=== PATIENT | female | born 1990 | race Caucasian/White ===

== ENCOUNTER 2017-09-20 22:09 | Emergency (ER) | payer OTHER, SELFPAY ==
--- OUTSIDE RECORDS SUMMARY | 2017-09-20 22:12 | XMS REPORT | Clinical Summary ---
:1990 Author Organization [facility] Address [address] [place] [address] Phone Care Team Providers Name Role Phone Unavailable Primary Care Provider Unavailable Allergies Active Allergy Reactions Severity Noted Date Comments Latex 09/15/2015 Tramadol 09/15/2015 Current Medications Not on file Active Problems Not on file Social History Tobacco Use Types Packs/Day Years Used Date Current Every Day Smoker Alcohol Use Drinks/Week oz/Week Comments Yes occasionally Sex Assigned at Date Recorded Not on file Last Filed Vital Signs Not on file Plan of Treatment Not on file Results Not on fileafter 09/19/2016
--- OUTSIDE RECORDS SUMMARY | 2017-09-20 22:12 | XMS REPORT ---
:1990 [facility] Address [facility] [place] [address] Care Team Providers Name Role Phone Daniel VALIENTE Primary Care Provider Unavailable Daniel VALIENTE Unavailable Unavailable Problems This patient has no known problems. Allergies, Adverse Reactions, Alerts This patient has no known allergies or adverse reactions. Medications This patient has no known medications. Results Test Description Test Time Test Comments Text Results Atomic Results Result Comments [id number] 2016-11-13 22:58:00 Test Item Value Reference Range Comments Amphetamine (test code=AMPH) Negative Negative For diagnostic purposes only, positive results should always be assessedin conjunctionwith the patient's medical history,clinical examination and otherfindings.To fulfill legal requirements, a more specific alternate chemical methodmust be used inorder to obtain a Confirmed analytical result. GC/MS is the preferred confirmatory method. Barbiturates (test code=CR) Negative Negative Benzodiazepine (test code=GRIFFIN) Negative Negative Cocaine (test code=COCA) Negative Negative Methadone (test code=MTHD) Negative Negative Opiates (test code=OPIA) Negative Negative PCP (test code=PCP) Negative Negative Propoxyphene (test code=PROPOX) Negative Negative THC (test code=THC) POSITIVE Negative Comprehensive Metabolic [id number] 22:56:00 Test Item Value Reference Range Comments Sodium (test code=NA) 140 mmol/L 135-145 Potassium (test code=K) 4.0 mmol/L 3.5-5.1 Chloride (test code=CL) 101 mmol/L 98-105 Carbon Dioxide (test 25 mmol/L 22-29 code=CO2) Glucose (test code=GLU) 86 mg/dL 70-115 Blood Urea Nitrogen 7 mg/dL 6-20 (test code=BUN) Creatinine (test 0.8 mg/dL 0.5-0.9 code=CREAT) Calcium (test code=CA) 8.8 mg/dL 8.3-10.5 Prot Total (test 7.0 g/dL 6.4-8.3 code=TP) Albumin (test code=ALB) 4.1 g/dL 3.5-5.2 A/G Ratio (test 1.4 Ratio code=AGRATIO) Globulin (test 2.9 2.9-3.1 code=GLOB) Bili Total (test 1.3 mg/dL 0.1-0.9 code=TBIL) Alk Phos (test 267 U/L 35-104 code=APHOS) AST (test code=AST) 564 U/L 1-32 ALT (test code=ALT) 153 U/L 1-33 BUN/Creatinine Ratio 8.8 (test code=BCRATIO) Anion Gap (test 14 mmol/L 7-16 code=AGAP) Estimated GFR (test >60 eGFR (estimated Glomerular code=GFR) mL/min/1.73m2 Filtration Rate) is an estimated value,calculated from the patient's serum creatinine using the MDRD equation.It is NOT the patient's actual GFR. The eGFR provides a more clinicallyuseful measure of kidney disease than serum creatinine alone.This calculation takes sex and race into account, if the informationis provided. If the race is not provided, and the patient isAfrican-Syrian, multiply by 1.212. If sex is not provided, and thepatient is female, multiply by 0.742. Results for patients <18 years ofage have not been validated by the MDRD study and should be interpretedwith caution.eGFR Result Interpretation:eGFR > or=60 is in the Normal RangeeGFR < 60 may mean kidney diseaseeGFR < 15 may mean kidney failureRanges recommended by the National Kidney Foundation,http://nkdep.ni h.gov Alcohol/Ethanol, [id number] 22:56:00 Test Item Value Reference Range Comments Alcohol, Ethyl (test 0.25 g/dL 0.00-0.01 Intoxicated 0.080 g/dL or code=ETOH) more Urinalysis [id number] 22:54:00 Test Item Value Reference Range Comments Color (test code=COLOR) Daisha Yellow,Straw,Pl yellow Clarity (test code=CLAR) Clear Clear Specific [place] (test 1.020 1.001-1.035 code=SPGR) pH (test code=PH) 5.0 5.0-9.0 Ketone (test code=KET) 5 mg/dL Negative Glucose (test code=GLUCUR) Negative mg/dL Negative Protein (test code=PROT) 25 mg/dL Negative Bilirubin (test code=BILI) See IctoTest mg/dL Negative Occult Blood (test code=UDOB) Small Negative Urobilinogen (test code=UROB) 4.0 mg/dL 0.2-1.0 Nitrite (test code=NIT) Negative Negative Leuk Esterase (test code=LEUK) Negative Negative Ictotest (test code=ICTOTEST) Confirmed Negative Negative,Confirmed Negative Micros Exam (test code=MEXAM) Indicated Epithelial Cells (test 3-5 /LPF 0-30 code=EPI) WBC, Urine (test code=UWBC) 0-2 /HPF 0-5 RBC, Urine (test code=URBC) None Seen /HPF 0-5 Bacteria (test code=BACT) Few /HPF BHCG, Urine, [id number] 22:50:00 Test Item Value Reference Range Comments Preg Qual [Ur] (test code=HUHCG) Negative Negative CBC with [id number] 22:38:00 Test Item Value Reference Range Comments WBC (test code=WBC) 3.3 K/cumm 4.4-10.5 RBC (test code=RBC) 4.48 M/cumm 3.75-5.20 Hemoglobin (test code=HGB) 13.1 gm/dL 12.2-14.8 Hematocrit (test code=HCT) 43.2 % 36.5-44.4 MCV (test code=MCV) 96.3 fL 80-100 MCH (test code=MCH) 29.3 pg 27.0-32.5 MCHC (test code=MCHC) 30.4 g/dL 32.0-37.5 RDW (test code=RDW) 16.2 % 11.5-14.5 Platelet Count (test code=PLTCT) 98 K/cumm 140-440 MPV (test code=MPV) 8.6 fL Diff Method (test code=DIFFM) Auto Neutrophil (test code=NEUT) 40.6 % 36-70 Lymphocyte (test code=LYMPH) 49.1 % 12-44 Monocyte (test code=MONO) 6.5 % 0-11 Eosinophil (test code=EOS) 2.7 % 0-7 Basophil (test code=BASO) 1.2 % 0-2 Neutro Abs (test code=ANEUT) 1.4 K/cumm 1.6-7.4 Lymph Abs (test code=ALYMPH) 1.6 K/cumm 0.5-4.6 [place] Abs (test code=AMONO) 0.2 K/cumm 0.0-1.2 Eos Abs (test code=AEOS) 0.09 K/cumm 0.00-0.74 Baso Abs (test code=ABASO) 0.0 K/cumm 0.00-0.21
--- OUTSIDE RECORDS SUMMARY | 2017-09-20 22:12 | XMS REPORT | Clinical Summary ---
:1990 Author Organization [facility] Address [address] [place] [address] Care Team Providers Name Role Phone Andreas Benton MD Primary Care Provider Allergies Active Allergy Reactions Severity Noted Date Comments Latex 07/07/2017 Nsaids (Non-Steroidal Anti-Inflammatory Drug) 07/07/2017 Tramadol 07/07/2017 Acetaminophen 07/07/2017 Current Medications No known medications Active Problems Not on file Encounters Date Type Specialty Care Team Description 07/07/2017 Emergency Emergency Medicine Leandro Boston MD Anger reaction ( Primary Dx); Crohn's disease without complication, unspecified gastrointestinal tract location after 09/19/2016 Social History Tobacco Use Types Packs/Day Years Used Date Current Every Day Smoker Smokeless Tobacco: Never Used Alcohol Use Drinks/Week oz/Week Comments No Sex Assigned at Date Recorded Not on file Last Filed Vital Signs Vital Sign Reading Time Taken Blood Pressure 138/88 07/07/2017 6:58 AM EXHIBIT PREPARATOR Pulse 76 07/07/2017 6:58 AM EXHIBIT PREPARATOR Temperature 35.7 C (96.2 F) 07/07/2017 6:58 AM EXHIBIT PREPARATOR Respiratory Rate 17 07/07/2017 6:58 AM EXHIBIT PREPARATOR Oxygen Saturation 100% 07/07/2017 6:58 AM EXHIBIT PREPARATOR Inhaled Oxygen Concentration - - Weight - - Height 170.2 cm (5' 7") 07/07/2017 12:46 AM EXHIBIT PREPARATOR Body Mass Index - - Plan of Treatment Not on file Results Estimated GFR (07/07/2017 1:14 AM) Component Value Ref Range GFR Non Af Amer >90 mL/min/1.73 m2 GFR Af Amer >90 mL/min/1.73 m2 Comment: Chronic kidney disease: <60 mL/min/1.73m2 Kidney failure: <15 mL/min/1.73m2 The estimated GFR is calculated from the IDMS-traceable Modification of Diet in Renal Disease Equation. The accuracy of the calculation is poor when the creatinine is normal. Calculated values >90 mL/min/1.73m2 are not reported. This equation has not been validated in children (<18 years), women, the elderly (>70 years), or ethnic groups other than Caucasians and Americans. Specimen Performing Laboratory Plasma specimen [facility] [address] [facility] [place] [address] CBC with platelet and differential (07/07/2017 1:14 AM) Component Value Ref Range WBC 7.61 4.50 - 11.00 k/uL RBC 3.60 (L) 4.20 - 5.50 m/uL HGB 10.1 (L) 12.0 - 16.0 g/dL HCT 31.9 (L) 37.0 - 47.0 % MCV 88.6 82.0 - 100.0 fL MCH 28.1 27.0 - 34.0 pg MCHC 31.7 31.0 - 37.0 g/dL RDW - SD 54.4 37.0 - 55.0 fL MPV 10.3 8.8 - 13.2 fL Platelet count 167 150 - 400 k/uL Nucleated RBC 0.00 /100 WBC Neutrophils 73.9 (H) 39.0 - 69.0 % Lymphocytes 15.2 (L) 25.0 - 45.0 % Monocytes 7.9 0.0 - 10.0 % Eosinophils 2.0 0.0 - 5.0 % Basophils 0.3 0.0 - 1.0 % Immature granulocytes 0.7 0.0 - 1.0 % Specimen Performing Laboratory Blood [facility] [address] [facility] [place] [address] Thyroid stimulating hormone (07/07/2017 1:14 AM) Component Value Ref Range TSH 2.21 0.55 - 4.78 uIU/mL Specimen Performing Laboratory Serum [facility] [address] [place] [address] T4, free (07/07/2017 1:14 AM) Component Value Ref Range T4, free 0.9 0.8 - 1.8 ng/dL Specimen Performing Laboratory Serum [facility] [address] [facility] [place] [address] Alcohol level, blood (07/07/2017 1:14 AM) Component Value Ref Range Alcohol <14.1 mg/dL Comment: Normal None Detected Legal Intoxication in [place]80 mg/dL (0.08%) - Whole Blood Toxic Umkwjytzikwfp613 mg/dL (0.2%) Potentially Qtrij437 - 500 mg/dL (0.35 - 0.5%) Alcohol percent 0.014 % Specimen Performing Laboratory Plasma specimen [facility] [place] [address] [place] [address] Acetaminophen level (07/07/2017 1:14 AM) Component Value Ref Range Acetaminophen level <15.9 ug/mL Comment: Therapeutic 10-30 ug/mL Possible Toxicity 150-200 ug/mL Probable Toxicity >200 ug/mL Specimen Performing Laboratory Serum [place] [address] [place] [address] Salicylate level (07/07/2017 1:14 AM) Component Value Ref Range Salicylate <0.4 mg/dL Comment: Therapeutic Range: 5 - 30 mg/dL Specimen Performing Laboratory Serum [facility] [place] [address] [place] [address] Comprehensive metabolic panel (07/07/2017 1:14 AM) Component Value Ref Range Sodium 137 135 - 148 mEq/L Potassium 4.2 3.5 - 5.0 mEq/L Chloride 101 99 - 109 mEq/L CO2 22 (L) 24 - 31 mEq/L Anion gap 14 7 - 15 mEq/L Comment: Starting from September , anion gap calculation no longer incorporates potassium. Please note the change. BUN 7 (L) 8 - 24 mg/dL Creatinine 0.7 0.5 - 1.5 mg/dL Glucose 159 (H) 65 - 99 mg/dL Calcium 9.1 8.6 - 10.6 mg/dL Protein 7.1 6.3 - 8.2 g/dL Albumin 3.3 (L) 3.5 - 5.0 g/dL A/G ratio 0.9 0.7 - 3.8 Alkaline phosphatase 172 (H) 30 - 115 U/L AST 106 (H) 15 - 46 U/L ALT 43 10 - 55 U/L Total bilirubin 0.7 0.2 - 1.2 mg/dL Specimen Performing Laboratory Plasma specimen [facility] [address] [place] [address] Urinalysis screen and microscopy, with reflex to culture (07/07/2017 1:00 AM) Component Value Ref Range Specimen site Clean catch Color, UA Yellow Appearance, UA Clear Specific gravity, UA 1.016 1.001 - 1.035 pH, UA 6.0 5.0 - 8.5 Protein, UA Negative Negative Glucose, UA Negative Negative Ketones, UA Negative Negative Bilirubin, UA Negative Negative Blood, UA Negative Negative Nitrite, UA Negative Negative Urobilinogen, UA 4.0 (A) <2.0 Leukocyte esterase, UA Negative Negative Epithelial cells, UA <1 /HPF WBC, UA 1 0 - 4 /HPF RBC, UA 1 0 - 2 /HPF Bacteria, UA None seen None seen Yeast, UA None seen Yeast with pseudohyphae, UA None seen Specimen Performing Laboratory Urine [facility] [address] [place] [address] Urine drugs of abuse screen (07/07/2017 1:00 AM) Component Value Ref Range Amphetamine screen, urine Negative Methamphetamine screen, urine SEE COMMENT Comment: Test Not Performed. Methamphetamines and Methadone are not available from security dispatcher. If needed, contact laboratory to send for referral laboratory. Barbiturate screen, urine Negative Benzodiazepine screen, urine Positive (A) Cocaine screen, urine Negative Methadone screen, urine SEE COMMENTComment: Test Not Performed. Opiates screen, urine Negative Phencyclidine screen, urine Negative Cannabinoid screen, urine Negative Tricyclic screen, urine Negative Comment: Drug screen minimum concentration of detectability Pcmphpviylgj0023 ng/mL Pjsitsygbocngpcr4188 ng/mL Barbiturates 300 ng/mL Wnamwbludnisoiw679 ng/mL Tbelhdh383 ng/mL Oiawkrykl807 ng/mL Nfoscst157 ng/mL Phencyclidine 25 ng/mL Oykuqhntvijb17 ng/mL Vymynsjurp4262 ng/mL Negative test results indicates presumptive evidence of lack of clinically significant drug concentration in this urine specimen. Positive test results are presumptive evidence of clinically significant drug concentration in this urine specimen. Testing performed for medical purposes only. Specimen Performing Laboratory Urine [facility] [address] [place] [address] Urine culture (07/07/2017 1:00 AM) Component Value Ref Range Urine culture SEE COMMENTComment: Bacteriuria screen negative. Specimen Performing Laboratory [facility] [address] [place] [address] after 09/19/2016 Insurance Payer Benefit Plan / Group Subscriber ID Type Phone Address MEDICAID MEDICAID xxxxxxxxx Medicaid [address] [place] [address]
[2017-09-21 00:06] LABS: Absolute Lymphocytes (CBC) 1.5 K/uL (0.7-4.9); Absolute Monocytes 0.3 K/uL (0.1-1.3); Absolute Neutrophil 4.3 K/uL (1.8-8.0); Basophils % 0.3 % (0-1.3); Eosinophils % 1.4 % (0-4.4); Hematocrit 35.3 % (36.0-45.0); Lymphocytes % 24.2 % (15.3-44.8); MCV 83.6 fL (80-100); MPV 7.2 fL (7.6-11.3); Monocytes % 5.5 % (3.3-12.3); RBC Red Blood Cell Count 4.22 M/uL (3.86-4.86)
[2017-09-21] MEDS ORDERED: LIDOCAINE 1% 20 ML MDV ONE (00:06)
[2017-09-21] MEDS ORDERED: NA CHLORIDE 0.9% 1,000 ML ONE (00:07)
[2017-09-21] MEDS ORDERED: ONDANSETRON 4 MG/2 ML VIAL ONE ×2 (00:07→01:14)
[2017-09-21] MEDS ORDERED: FENTANYL CITR 100 MCG/2 ML ONE (00:07)
[2017-09-21] MEDS ORDERED: CEFAZOLIN/SWI 1gm 1 GM/10 ML SYR ONE (00:08)
[2017-09-21 00:09] LABS: Protime INR 1.07
[2017-09-21 00:11] LABS: Bicarbonate 20 mEq/L (21-31); Glucose Level 97 mg/dL (65-120); Potassium 3.4 mEq/L (3.6-5.0); Sodium Level 138 mEq/L (135-145)
[2017-09-21 00:17] LABS: ALT/SGPT 69 IU/L (10-60); AST/SGOT 86 IU/L (10-42); Albumin 3.6 g/dL (3.2-5.5); Alkaline Phosphatase 327 IU/L (42-121); BUN Blood Urea Nitrogen 6 mg/dL (6-20); Bilirubin Direct 0.1 mg/dL (0-0.2); Bilirubin Total 0.5 mg/dL (0.3-1.2); Glomerular Filtration Rate 73 mL/min (=/>90); Protein, Total 6.7 g/dL (6.0-8.3)
[2017-09-21] MEDS ORDERED: MORPHINE 4 MG/ML SYR ONE (01:14)
[2017-09-21 01:23] LABS: Urine Blood NEGATIVE (NEG); Urine Glucose NEGATIVE (NEG); Urine Protein TRACE (NEG)
[2017-09-21 01:26] LABS: Barbiturates NEGATIVE; Benzodiazepines POSITIVE; Cocaine NEGATIVE; METHAMPHETAM NEGATIVE; Opiates NEGATIVE; Phencyclidine NEGATIVE; THC Cannibis NEGATIVE
[2017-09-21 01:27] LABS: Lipase 15 U/L (22-51)
[2017-09-21 01:32] LABS: Amylase Level 15 U/L (28-100)
[2017-09-21 01:59] LABS: Alcohol Serum/Plasma 12 mg/dl; Salicylates Level < 4.0 mg/dl (<30)
[2017-09-21 03:01] LABS: Urine Bacteria <20 /HPF (<20); Urine Culture Reflex Order NOT NEEDED; Urine RBC NONE SEEN /HPF (NONE SEEN)
--- NOTE | 2017-09-21 03:10 | EDPHYS ---
Physician Documentation [facility] Name: Shae Dockery Age: 27 yrs Sex: Female : 1990 Arrival Date: 09/20/2017 Time: 22:12 Bed 6 Private MD: ED Physician Alex Velazquez HPI: 09/20 23:34 This 27 yrs old Female presents to ER via EMS with complaints of abd pain, shaun cut wrist to get attention. 23:34 The patient or guardian complains of a laceration, 3 cm(s). The complaints affect the shaun palmar aspect of left forearm. Context: The problem was sustained at home. Onset: The symptoms/episode began/occurred 2 day(s) ago. Modifying factors: The symptoms are alleviated by nothing. the symptoms are aggravated by nothing. Associated signs and symptoms: The patient has no apparent associated signs or symptoms. Severity of symptoms: At their worst the symptoms were. 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: 22:22 LMP N/A - Irregular menses bp Historical: - Allergies: 22:22 Ibuprofen (Upset stomach); bp 22:22 Latex, Natural Rubber (Anaphylaxis); bp 22:22 tramadol (Seizures); bp 22:22 Tylenol (Liver Issues); bp 22:22 Ultram; bp - Home Meds: 09/21 01:35 Adderall 10 mg Oral tab 1 tab 2 times per day for Attention-Deficit Hyperactivity lp1 Disorder [Active]; Ativan Oral [Active]; Benadryl Oral [Active]; Bentyl 20 mg Oral tab 1 tab as needed for Irritable bowel syndrome [Active]; Carafate 1 gram Oral tab 1 tab daily [Active]; Geodon 20 mg Oral cap 1 cap daily [Active]; Geodon 20 mg Oral cap 1 cap 2 times per day [Active]; Klonopin 1 mg Oral tab 1 tab 3 times per day [Active]; Lasix Oral [Active]; lisinopril Oral [Active]; Paxil 20 mg Oral tab 1 tab once daily [Active]; Paxil Oral [Active]; Potassium Chloride Oral [Active]; Spironolactone Oral [Active]; Trazodone Oral [Active]; Zofran Oral [Active]; - PMHx: 09/20 22:22 ADD/ADHD; alcohol abuse; Anemia; Anxiety; Bipolar disorder; Cirrhosis; Crohn's; bp Depression; GI Bleed; Liver disease; multiple blood transfusions; pt trying to get on liver transplant list; Seizures; self harm; suicidal ideation; - Immunization history:: Adult Immunizations up to date. - Social history:: Smoking status: Patient uses tobacco products, unknown amount Patient/guardian denies using alcohol. - Family history:: not pertinent. ROS: 23:34 Constitutional: Negative for fever, chills, and weight loss, Eyes: Negative for injury, shaun pain, redness, and discharge, ENT: Negative for injury, pain, and discharge, Neck: Negative for injury, pain, and swelling, Cardiovascular: Negative for chest pain, palpitations, and edema, Respiratory: Negative for shortness of breath, cough, wheezing, and pleuritic chest pain, Back: Negative for injury and pain, : Negative for injury, bleeding, discharge, and swelling, MS/Extremity: Negative for injury and deformity, Skin: Negative for injury, rash, and discoloration, Neuro: Negative for headache, weakness, numbness, tingling, and seizure, Allergy/Immunology: Negative for hives, rash, and allergies, Endocrine: Negative for neck swelling, polydipsia, polyuria, polyphagia, and marked weight changes, Hematologic/Lymphatic: Negative for swollen nodes, abnormal bleeding, and unusual bruising. 23:34 Abdomen/GI: Positive for abdominal pain, abdominal cramps, of the right upper quadrant. 23:34 MS/extremity: Positive for laceration, pain, of the palmar aspect of left forearm. Exam: 23:34 Constitutional: This is a well developed, well nourished patient who is awake, alert, shaun and in no acute distress. Head/Face: Normocephalic, atraumatic. Eyes: Pupils equal round and reactive to light, extra-ocular motions intact. Lids and lashes normal. Conjunctiva and sclera are non-icteric and not injected. Cornea within normal limits. Periorbital areas with no swelling, redness, or edema. ENT: Nares patent. No nasal discharge, no septal abnormalities noted. Tympanic membranes are normal and external auditory canals are clear. Oropharynx with no redness, swelling, or masses, exudates, or evidence of obstruction, uvula midline. Mucous membranes moist. Neck: Trachea midline, no thyromegaly or masses palpated, and no cervical lymphadenopathy. Supple, full range of motion without nuchal rigidity, or vertebral point tenderness. No Meningismus. Chest/axilla: Normal chest wall appearance and motion. Nontender with no deformity. No lesions are appreciated. Cardiovascular: Regular rate and rhythm with a normal S1 and S2. No gallops, murmurs, or rubs. Normal PMI, no JVD. No pulse deficits. Respiratory: Lungs have equal breath sounds bilaterally, clear to auscultation and percussion. No rales, rhonchi or wheezes noted. No increased work of breathing, no retractions or nasal flaring. Back: No spinal tenderness. No costovertebral tenderness. Full range of motion. Skin: Warm, dry with normal turgor. Normal color with no rashes, no lesions, and no evidence of cellulitis. Neuro: Awake and alert, GCS 15, oriented to person, place, time, and situation. Cranial nerves II-XII grossly intact. Motor strength 5/5 in all extremities. Sensory grossly intact. Cerebellar exam normal. Normal gait. Psych: Awake, alert, with orientation to person, place and time. Behavior, mood, and affect are within normal limits. 23:34 Abdomen/GI: Inspection: abdomen appears normal, Bowel sounds: normal, Palpation: mild abdominal tenderness, in the right upper quadrant. Vital Signs: 22:22 BP 128 / 78; Pulse 84; Resp 18; Temp 98.6; Pulse Ox 98% on R/A; Weight 77.11 kg; Height bp 5 ft. 7 in. (170.18 cm); 09/21 01:21 BP 110 / 74; Pulse 84; Resp 16; Pulse Ox 98% on R/A; mt 01:33 BP 111 / 70; Pulse 90; Resp 16; Pulse Ox 97% on R/A; mt 02:18 BP 116 / 72; Pulse 82; Resp 16; Pulse Ox 99% on R/A; mt 09/20 22:22 Body Mass Index 26.63 (77.11 kg, 170.18 cm) bp Laceration: 00:08 Wound Repair of 4cm ( 1.6in ) subcutaneous laceration to left arm and dorsal aspect of shaun left forearm. Linear shaped.. Distal neuro/vascular/tendon intact. Anesthesia: none with 0 mls of none. Wound prep: Simple cleansing by me. Skin closed with 5 robin Mansfield using staple gun. Dressed with pressure dressing, non-adherent dressing. Patient tolerated well. MDM: 09/20 23:22 Patient medically screened. [facility] 23:39 Data reviewed: vital signs, nurses notes, lab test result(s), EKG, radiologic studies, [facility] CT scan, plain films. 09/20 23:23 Order name: Acetaminophen [facility] 09/20 23:23 Order name: Basic Metabolic Panel [facility] 09/20 23:23 Order name: CBC with Diff [facility] 09/20 23:23 Order name: ETOH Level [facility] 09/20 23:23 Order name: Hepatic Function [facility] 09/20 23:23 Order name: PT-INR; Complete Time: 02:18 [facility] 09/20 23:23 Order name: Ptt, Activated; Complete Time: 02:18 [facility] 09/20 23:23 Order name: Salicylate; Complete Time: 02:18 [facility] 09/20 23:23 Order name: Urine Drug Screen; Complete Time: 02:18 [facility] 09/20 23:23 Order name: Acetaminophen Level; Complete Time: 02:18 [facility] 09/20 23:23 Order name: Basic Metabolic Panel; Complete Time: 02:18 [facility] 09/20 23:23 Order name: CBC with Automated Diff; Complete Time: 02:18 [facility] 09/20 23:23 Order name: Alcohol Serum/Plasma; Complete Time: 02:18 [facility] 09/20 23:23 Order name: Liver (Hepatic) Function; Complete Time: 02:18 [facility] 09/20 23:34 Order name: CT Abd/Pelvis - Without Cont [facility] 09/20 23:38 Order name: Urine Microscopic Only; Complete Time: 03:08 [facility] 09/21 00:37 Order name: Amylase Level; Complete Time: 02:18 [facility] 09/21 00:37 Order name: Lipase; Complete Time: 02:18 [facility] 09/21 01:17 Order name: Urine Dipstick--Ancillary (enter results); Complete Time: 02:18 [facility] 09/21 01:17 Order name: Urine --Ancillary (enter results); Complete Time: 02:18 [facility] 09/20 23:23 Order name: Urine Test (obtain specimen); Complete Time: 01:10 [facility] 09/20 23:23 Order name: EKG - Nurse/Tech; Complete Time: 00:33 lp1 09/20 23:23 Order name: IV Saline Lock; Complete Time: 00:33 lp1 09/20 23:23 Order name: Labs collected and sent; Complete Time: 00:33 lp1 09/20 23:23 Order name: Urine Dipstick-Ancillary (obtain specimen); Complete Time: 01:10 lp1 09/20 23:34 Order name: Dressing - Wound; Complete Time: 00:32 shaun 09/20 23:34 Order name: Gloves, Sterile; Complete Time: 00:32 shaun 09/20 23:34 Order name: Setup Suture Tray; Complete Time: 00:32 shaun Administered Medications: 09/21 00:15 Drug: NS 0.9% 1000 ml Route: IV; Rate: 1 bolus; Site: right wrist; lp1 00:15 Drug: Ancef 1 grams Route: IVPB; Site: right wrist; lp1 00:15 Drug: fentaNYL (PF) 50 mcg Route: IVP; Site: right wrist; lp1 01:12 Follow up: Response: Pain is unchanged, physician notified lp1 03:34 Follow up: Response: No adverse reaction bs1 00:15 Drug: Zofran 4 mg Route: IVP; Site: right wrist; lp1 01:12 Follow up: Response: No adverse reaction lp1 03:34 Follow up: Response: No adverse reaction bs1 00:32 Not Given (Patient Refused): Tetanus-Diphtheria Toxoid Adult 0.5 ml IM once lp1 00:32 CANCELLED (Physician Discretion): Lidocaine-Epinephrine -1%: (1:100,000) 5 ml 20 ml lp1 Infiltration once; to bedside 01:23 Drug: morphine 4 mg Route: IVP; Site: right wrist; lp1 03:34 Follow up: Response: No adverse reaction bs1 01:24 Drug: Zofran 4 mg Route: IVP; Site: right wrist; lp1 03:33 Follow up: Response: No adverse reaction bs1 Disposition: 09/21/17 03:09 Discharged to Home. Impression: Abdominal tenderness, Laceration without foreign body of left forearm, Bipolar disorder. - Condition is Stable. - Discharge Instructions: Abdominal Pain, Adult, Bipolar Disorder, Nausea and Vomiting, Abdominal Pain, Adult, [id number]. - Prescriptions for Bentyl 20 mg Oral Tablet - take 1 tablet by ORAL route every 6 hours As needed; 20 tablet. Pepcid 20 mg Oral Tablet - take 1 tablet by ORAL route every 12 hours for 10 days; 20 tablet. Zofran 4 mg Oral Tablet - take 1 tablet by ORAL route every 12 hours As needed; 20 tablet. Keflex 500 mg Oral Capsule - take 1 capsule by ORAL route every 6 hours for 7 days; 28 capsule. - Medication Reconciliation Form, Thank You Letter, Antibiotic Education, Prescription Opioid Use form. - Follow up: Private Physician; When: 2 - 3 days; Reason: Recheck today's complaints, Continuance of care, Re-evaluation by your physician. Follow up: Annalee Dowling; When: 2 - 3 days; Reason: Recheck today's complaints, Re-evaluation by your physician. Follow up: Serge Pearson MD; When: 2 - 3 days; Reason: Recheck today's complaints, Continuance of care, Re-evaluation by your physician. - Problem is new. - Symptoms have improved. Signatures: Dispatcher [employer] EDNJ Alex Velazquez MD MD cha Pena, Laura, RN RN lp1 Donald Roach RN RN Jeanna Kamara, RN RN bs1 Corrections: (The following items were deleted from the chart) 00:32 09/20 23:34 Lidocaine-Epinephrine -1%: (1:100,000) 5 ml 20 ml Infiltration once; to lp1 bedside ordered. shaun 09/21 00:36 00:26 Creatinine for Radiology+C.LAB.BRZ ordered. EDNJ EDNJ 00:37 00:26 AMYLASE, SERUM+C.LAB.BRZ ordered. EDNJ EDMS 00:37 00:26 LIPASE+C.LAB.BRZ ordered. EDNJ EDMS
--- NOTE | 2017-09-21 03:10 | ER ---
Nurse's Notes [facility] Name: Shae Dockery Age: 27 yrs Sex: Female : 1990 Arrival Date: 09/20/2017 Time: 22:12 Bed 6 Private MD: Diagnosis: Abdominal tenderness;Laceration without foreign body of left forearm;Bipolar disorder Presentation: 09/20 22:17 Presenting complaint: EMS states: SHE GOT IN AN ARGUMENT WITH HER MOM ABOUT MONEY AND bp THEN SHE WENT INTO HER ROOM AND TOOK 9-10 CLONAZEPAM AND CUT HERSELF. Transition of care: patient was not received from another setting of care. Onset of symptoms was September 20, 2017 at 21:30. Care prior to arrival: IV initiated. 20 GA, in the right wrist, Glucose check: 157. 22:17 Method Of Arrival: EMS: [facility] bp 22:17 Acuity: AYESHA 2 bp Triage Assessment: 22:22 General: Appears distressed, comfortable, Behavior is cooperative, appropriate for age, bp anxious. Pain: Complains of pain in abdomen. Injury Description: Laceration sustained to dorsal aspect of left forearm is clean, 0.5 to 2.5 cm long, not bleeding, was sustained 1-2 hours ago. no active bleeding noted at this time. 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 LMP N/A - Irregular menses bp Historical: - Allergies: 22:22 Ibuprofen (Upset stomach); bp 22:22 Latex, Natural Rubber (Anaphylaxis); bp 22:22 tramadol (Seizures); bp 22:22 Tylenol (Liver Issues); bp 22:22 Ultram; bp - Home Meds: 09/21 01:35 Adderall 10 mg Oral tab 1 tab 2 times per day for Attention-Deficit Hyperactivity lp1 Disorder [Active]; Ativan Oral [Active]; Benadryl Oral [Active]; Bentyl 20 mg Oral tab 1 tab as needed for Irritable bowel syndrome [Active]; Carafate 1 gram Oral tab 1 tab daily [Active]; Geodon 20 mg Oral cap 1 cap daily [Active]; Geodon 20 mg Oral cap 1 cap 2 times per day [Active]; Klonopin 1 mg Oral tab 1 tab 3 times per day [Active]; Lasix Oral [Active]; lisinopril Oral [Active]; Paxil 20 mg Oral tab 1 tab once daily [Active]; Paxil Oral [Active]; Potassium Chloride Oral [Active]; Spironolactone Oral [Active]; Trazodone Oral [Active]; Zofran Oral [Active]; - PMHx: 09/20 22:22 ADD/ADHD; alcohol abuse; Anemia; Anxiety; Bipolar disorder; Cirrhosis; Crohn's; bp Depression; GI Bleed; Liver disease; multiple blood transfusions; pt trying to get on liver transplant list; Seizures; self harm; suicidal ideation; - Immunization history:: Adult Immunizations up to date. - Social history:: Smoking status: Patient uses tobacco products, unknown amount Patient/guardian denies using alcohol. - Family history:: not pertinent. Screenin:28 Abuse screen: Denies threats or abuse. Denies injuries from another. Nutritional bp screening: No deficits noted. Tuberculosis screening: No symptoms or risk factors identified. Fall Risk None identified. Assessment: 22:25 General: Appears distressed, comfortable, obese, Behavior is cooperative, appropriate bp for age, anxious. Pain: Complains of pain in abdomen. Neuro: Level of Consciousness is awake, alert, obeys commands, Oriented to person, place, time, situation, Appropriate for age. Cardiovascular: No deficits noted. Respiratory: Airway is patent Respiratory effort is even, unlabored, Respiratory pattern is regular, symmetrical. GI: Abdomen is non-distended, Bowel sounds present X 4 quads. : No signs and/or symptoms were reported regarding the genitourinary system. EENT: No deficits noted. Derm: No deficits noted. Musculoskeletal: Circulation, motion, and sensation intact. Range of motion: intact in all extremities. 23:24 Reassessment: Patient refusing to have any tests done until seen by provider and given lp1 pain medication. 23:24 General: Behavior is agitated, uncooperative. lp1 23:24 GI: Abdomen is non-distended, Abdomen is tender to palpation in right lower quadrant. lp1 Derm: Wound noted Wound is Laceration noted to left wrist, subcutaneous tissue seen; multiple superficial lacerations to right wrist. 23:50 Reassessment: Dennis from Poison Control contacted, states low dose of medication lp1 ingested, watch for drowsiness; . 09/21 00:00 Reassessment: Patient opening laceration to left wrist, making it bleed more, refusing lp1 to let tech dress laceration; States wanting to speak to Guest Laundry Attendant. Reassessment: Patient's mother at bedside, Sushma; Aware of patient being monitored in ED due to ingestion of medication and abdominal pain; States patient "has been in and out of Psych facilities since June". 01:00 Reassessment: Patient refusing to go to CT, states "I'm not going anywhere until I get lp1 some pain medicine"; provider notified. 02:25 Reassessment: [facility] at bedside. lp1 03:15 Reassessment: No changes from previously documented assessment. Patient and/or family bs1 updated on plan of care and expected duration. Pain level reassessed. Patient is alert, oriented x 3, equal unlabored respirations, skin warm/dry/pink. Psych: 09/20 22:30 Subjective: Patient's mood is sad, Delusions are denied, Hallucinations are denied lp1 Having thoughts of suicide. Plan for suicide is Lacerations noted to left wrist, multiple superficial, x1 laceration showing subcutaneous tissue; Not actively bleeding. Objective: Patient is cooperative, Speech is normal, Affect is appropriate, Patient has mutilated themselves by knife. Interventions: Removed personal items and placed in bag. Patient placed in hospital gown. Searched person for dangerous items. Suicide Risk Assessment: Sad Person Scale: Sex of patient: Female: Score 0 points. Age of patient: Score 1 point if patient 15-34. Depression: Score 1 point if signs of depression are present. Previous Attempt: Score 1 point if patient has previously attempted suicide. Substance Abuse: Score 1 point if patient abuses alcohol or drugs. Rational Thinking: Score 0 point if patient has rational thinking. Social Support: Score 1 point if social support is lacking and/or unavailable. Organized Plan: Score 1 point if patient had a plan in place. Relationship: Score 1 point if patient is , , , or for a single male Chronic Sickness: Score 1 point if patient has illness, chronic, debilitating, or severe. TOTAL POINTS: If total points are 7-10, the proposed clinical action is to hospitalize or commit. Implement suicide precautions. Safety Checks: Personal items have been removed. Door is open. No visitors are present at this time. 22:30 Pt denies substance abuse. lp1 09/21 03:26 Commitment: Patient will be a voluntary commitment. bs1 Vital Signs: 09/20 22:22 BP 128 / 78; Pulse 84; Resp 18; Temp 98.6; Pulse Ox 98% on R/A; Weight 77.11 kg; Height bp 5 ft. 7 in. (170.18 cm); 09/21 01:21 BP 110 / 74; Pulse 84; Resp 16; Pulse Ox 98% on R/A; mt 01:33 BP 111 / 70; Pulse 90; Resp 16; Pulse Ox 97% on R/A; mt 02:18 BP 116 / 72; Pulse 82; Resp 16; Pulse Ox 99% on R/A; mt 09/20 22:22 Body Mass Index 26.63 (77.11 kg, 170.18 cm) bp ED Course: 09/20 22:12 Patient arrived in ED. em1 22:15 Safety checks: Items removed: yes. Door open/sign placed on door: yes. Family/friend mt present: no. 22:19 Triage completed. bp 22:24 Arm band placed on. bp 22:25 Maintain EMS IV. Dressing intact. Good blood return noted. Site clean \\T\\ dry. Gauge \\T\\ bp site: 20 GAUGE R WRIST. 22:29 Patient has correct armband on for positive identification. Bed in low position. Call bp light in reach. Side rails up X2. 22:30 Sitter at bedside. lp1 22:30 Safety checks: Items removed: yes. Door open/sign placed on door: yes. Family/friend mt present: no. 22:45 Safety Checks: Personal items have been removed The door is open or patient has been lp1 placed in a hallway bed/chair. A family member and/or friend is present and encouraged to stay. 22:45 Safety checks: Items removed: yes. Door open/sign placed on door: yes. Family/friend mt present: no. 23:00 Safety checks: Items removed: yes. Door open/sign placed on door: yes. Family/friend mt present: no. 23:15 Safety checks: Items removed: yes. Door open/sign placed on door: yes. Family/friend mt present: no. 23:22 Alex Velazquez MD is Attending Physician. [facility] 23:30 Safety checks: Items removed: yes. Door open/sign placed on door: yes. Family/friend mt present: no. 23:45 Safety checks: Items removed: yes. Door open/sign placed on door: yes. Family/friend mt present: no. 09/21 00:00 Safety checks: Items removed: yes. Door open/sign placed on door: yes. Family/friend mt present: no. 00:00 Assist provider with laceration repair on left wrist that was between 2.6 to 7.5 cm lp1 using robin. Set up tray. Performed by Alex Velazquez MD. 00:15 Safety checks: Items removed: yes. Door open/sign placed on door: yes. Family/friend mt present: no. 00:30 Safety checks: Items removed: yes. Door open/sign placed on door: yes. Family/friend mt present: no. 00:45 Safety checks: Items removed: yes. Door open/sign placed on door: yes. Family/friend mt present: yes. 01:00 Safety checks: Items removed: yes. Door open/sign placed on door: yes. Family/friend mt present: yes. 01:10 Urine collected: clean catch specimen, clear. lp1 01:12 Radiology exam delayed due to pt refusing CT until she gets meds. nj 01:15 Safety checks: Items removed: yes. Door open/sign placed on door: yes. Family/friend mt present: no. 01:30 Safety checks: Items removed: yes. Door open/sign placed on door: yes. Family/friend mt present: no. 01:45 Safety Checks: Personal items have been removed The door is open or patient has been bs1 placed in a hallway bed/chair. There are no family/friend visitors at this time. 02:00 Safety Checks: Personal items have been removed The door is open or patient has been bs1 placed in a hallway bed/chair. There are no family/friend visitors at this time. 02:12 CT Abd/Pelvis - Without Cont In Process Unspecified. EDMS 02:15 Safety Checks: Personal items have been removed The door is open or patient has been bs1 placed in a hallway bed/chair. There are no family/friend visitors at this time. 02:30 Safety Checks: Personal items have been removed The door is open or patient has been bs1 placed in a hallway bed/chair. There are no family/friend visitors at this time. 02:45 Safety Checks: Personal items have been removed The door is open or patient has been bs1 placed in a hallway bed/chair. There are no family/friend visitors at this time. 03:00 Safety Checks: Personal items have been removed The door is open or patient has been bs1 placed in a hallway bed/chair. There are no family/friend visitors at this time. 03:09 Annalee Dowling MD is Referral Physician. [facility] 03:10 Serge Pearson MD is Referral Physician. [facility] 03:15 Safety Checks: Personal items have been removed The door is open or patient has been bs1 placed in a hallway bed/chair. There are no family/friend visitors at this time. 03:25 Jeanna Michaels RN is Primary Nurse. bs1 03:28 IV discontinued, bleeding controlled, No redness/swelling at site. Pressure dressing bs1 applied. 03:30 Safety Checks: Personal items have been removed The door is open or patient has been bs1 placed in a hallway bed/chair. There are no family/friend visitors at this time. Administered Medications: 00:15 Drug: NS 0.9% 1000 ml Route: IV; Rate: 1 bolus; Site: right wrist; lp1 00:15 Drug: Ancef 1 grams Route: IVPB; Site: right wrist; lp1 00:15 Drug: fentaNYL (PF) 50 mcg Route: IVP; Site: right wrist; lp1 01:12 Follow up: Response: Pain is unchanged, physician notified lp1 03:34 Follow up: Response: No adverse reaction bs1 00:15 Drug: Zofran 4 mg Route: IVP; Site: right wrist; lp1 01:12 Follow up: Response: No adverse reaction lp1 03:34 Follow up: Response: No adverse reaction bs1 00:32 Not Given (Patient Refused): Tetanus-Diphtheria Toxoid Adult 0.5 ml IM once lp1 00:32 CANCELLED (Physician Discretion): Lidocaine-Epinephrine -1%: (1:100,000) 5 ml 20 ml lp1 Infiltration once; to bedside 01:23 Drug: morphine 4 mg Route: IVP; Site: right wrist; lp1 03:34 Follow up: Response: No adverse reaction bs1 01:24 Drug: Zofran 4 mg Route: IVP; Site: right wrist; lp1 03:33 Follow up: Response: No adverse reaction bs1 Outcome: 03:09 Discharge ordered by MD. dunn 03:26 [facility] to [facility] for ride from bs1 mother 03:26 Condition: stable 03:26 Discharge instructions given to patient, Instructed on discharge instructions, follow up and referral plans. medication usage, Demonstrated understanding of instructions, follow-up care, medications, wound care, Prescriptions given X 4, Instructed to follow up with escobar/Josey and instructed on medication usage. 03:32 Patient left the ED. bs1 Signatures: Dispatcher [employer] EDMS Alex Velazquez MD MD cha Martinez, Eric Danielle Ibanez, RN RN lp1 Oni Bowman Moriah mt Peltier, Brian, RN RN Jeanna Kamara RN RN bs1 Corrections: (The following items were deleted from the chart) 09/20 23:55 23:50 Reassessment: Dennis from Poison Control contacted, states low dose of medication lp1 ingested, watch for drowsiness lp1 09/21 01:32 09/20 23:24 Reassessment: Patient refusing to have any tests done until seen by lp1 provider and given pain medication lp1 09/21 01:32 09/20 23:50 Reassessment: Dennis from Poison Control contacted, states low dose of lp1 medication ingested, watch for drowsiness; 1
--- NOTE | 2017-09-21 07:29 | RAD REPORT ---
EXAM DESCRIPTION: CT - Abdomen Pelvis Wo Contrast - 09/21/2017 6:47 am CLINICAL HISTORY: Abdominal pain lower abdominal pain COMPARISON: May 2017 TECHNIQUE: Computed axial tomography of the abdomen and pelvis was obtained. IV and oral contrast we re not requested. A preliminary report was generated by Marley Spoon and reviewed prior to thi s dictation All CT scans are performed using dose optimization technique as appropriate and may include automated exposure control or mA/KV adjustment according to patient size. FINDINGS: The evaluation of solid organs, vessels and bowel is limited secondary to the lack of con trast administration. The liver, spleen, pancreas, adrenals and kidneys appear grossly normal. The appendix is normal. There is no evidence of diverticulitis. Postsurgical changes involve the stomach IMPRESSION: No acute abnormality is displayed.
--- NOTE | 2017-09-21 15:31 | EKG ---
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
== END 2017-09-21 03:32 | disposition home or self-care (01) ==
LOC: ER 22:09
PROC: 0JQH0ZZ Repair Left Lower Arm Subcutaneous Tissue and Fascia, Open Approach (ICD-10-PCS; principal; 2017-09-21)
DX: S51.812A Laceration without foreign body of left forearm, initial encounter (principal); X78.9XXA Intentional self-harm by unspecified sharp object, initial encounter; Y93.89 Activity, other specified; Y92.009 Unspecified place in unspecified non-institutional (private) residence as the place of occurrence of the external cause; Z72.0 Tobacco use; Z88.5 Allergy status to narcotic agent; Z88.6 Allergy status to analgesic agent; Z88.8 Allergy status to other drugs, medicaments and biological substances; Z91.040 Latex allergy status; F31.9 Bipolar disorder, unspecified; F90.9 Attention-deficit hyperactivity disorder, unspecified type
CPT/HCPCS: 36415; 74176; 80048; 80076; 80307; 80320; 80329; 81003; 81015; 81025; 82150; 83690; 85025; 85610; 85730; 93005; 96374; 96375; 99285; J0690; J2405; J3010; J7030

== ENCOUNTER 2017-09-27 10:13 | Emergency (ER) | payer OTHER, SELFPAY ==
--- OUTSIDE RECORDS SUMMARY | 2017-09-27 10:16 | XMS REPORT | Clinical Summary ---
:1990 Author Organization [facility] Address [address] [place] [address] Phone Care Team Providers Name Role Phone [...] Not on file Results Not on fileafter 09/26/2016
--- OUTSIDE RECORDS SUMMARY | 2017-09-27 10:16 | XMS REPORT | Clinical Summary ---
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 Specimen Performing Laboratory Plasma specimen [facility] [employer] [facility] [address] [facility] [place] [address] CBC with platelet and differential (07/07/2017 1:14 [...] - 1.0 % Specimen Performing Laboratory Blood [facility] [employer] [facility] [address] [place] [address] Thyroid stimulating hormone (07/07/2017 1:14 AM) Component Value Ref Range TSH 2.21 0.55 - 4.78 uIU/mL Specimen Performing Laboratory Serum [facility] [employer] [facility] [address] [place] [address] T4, free (07/07/2017 1:14 AM) Component Value Ref Range T4, free 0.9 0.8 - 1.8 ng/dL Specimen Performing Laboratory Serum [facility] [employer] [facility] [address] [place] [address] Alcohol level, blood (07/07/2017 1:14 AM) Component Value Ref Range Alcohol <14.1 mg/dL Comment: Normal None Detected Legal Intoxication in [place]80 mg/dL (0.08%) - Whole Blood Toxic Samijnvkcdqgf365 mg/dL (0.2%) Potentially Vupag313 - 500 mg/dL (0.35 - 0.5%) Alcohol percent 0.014 % Specimen Performing Laboratory Plasma specimen [facility] [employer] [place] [address] [place] [address] Acetaminophen level (07/07/2017 1:14 AM) Component Value Ref Range Acetaminophen level <15.9 ug/mL Comment: Therapeutic 10-30 ug/mL Possible Toxicity 150-200 ug/mL Probable Toxicity >200 ug/mL Specimen Performing Laboratory Serum [place] [address] [place] [address] Salicylate level (07/07/2017 1:14 AM) Component Value Ref Range Salicylate <0.4 mg/dL Comment: Therapeutic Range: 5 - 30 mg/dL Specimen Performing Laboratory Serum [facility] [employer] [address] [place] [address] Comprehensive metabolic panel (07/07/2017 1:14 AM) Component [...] 1.2 mg/dL Specimen Performing Laboratory Plasma specimen [facility] DEPARTMENT OF PATHOLOGY AND GENOMIC MEDICINE [address] [place] [address] Urinalysis screen and microscopy, with reflex to [...] UA None seen Specimen Performing Laboratory Urine [facility] [address] [place] [address] Urine drugs of abuse screen (07/07/2017 1:00 AM) Component Value Ref Range Amphetamine screen, urine Negative Methamphetamine screen, urine SEE COMMENT Comment: Test Not Performed. Methamphetamines and Methadone are not available from banking center manager. If needed, contact laboratory to send for referral laboratory. Barbiturate screen, urine Negative Benzodiazepine screen, urine Positive (A) Cocaine screen, urine Negative Methadone screen, urine SEE COMMENTComment: Test Not Performed. Opiates screen, urine Negative Phencyclidine screen, urine Negative Cannabinoid screen, urine Negative Tricyclic screen, urine Negative Comment: Drug screen minimum concentration of detectability Nooromsgpsdc8269 ng/mL Wuzanvnjbillelee6929 ng/mL Barbiturates 300 ng/mL Dskhhaohddzndpx746 ng/mL Lsqnfbp931 ng/mL Yswcvswdt486 ng/mL Piejxxs213 ng/mL Phencyclidine 25 ng/mL Bicyjtcoysmv52 ng/mL Msinmcbnde0931 ng/mL Negative test results indicates presumptive evidence of lack of clinically significant drug concentration in this urine specimen. Positive test results are presumptive evidence of clinically significant drug concentration in this urine specimen. Testing performed for medical purposes only. Specimen Performing Laboratory Urine [facility] DEPARTMENT OF PATHOLOGY AND GENOMIC MEDICINE [address] [place] [address] Urine culture (07/07/2017 1:00 AM) Component Value Ref Range Urine culture SEE COMMENTComment: Bacteriuria screen negative. Specimen Performing Laboratory [facility] DEPARTMENT OF PATHOLOGY AND GENOMIC MEDICINE [address] [place] [address] after 09/26/2016 Insurance Payer Benefit Plan / Group Subscriber ID Type Phone Address MEDICAID MEDICAID xxxxxxxxx Medicaid [address] [place] [address]
--- OUTSIDE RECORDS SUMMARY | 2017-09-27 10:16 | XMS REPORT ---
:1990 Author Organization [facility] Address [address] [place] [address] [address] [place] [address] Care Team Providers Name Role Phone Daniel [...] THC (test code=THC) POSITIVE Negative Comprehensive Metabolic [id number] 22:56:00 Test Item Value Reference Range Comments [...] race is not provided, and the patient isAfrican-Latvian, multiply by 1.212. If sex is not provided, and thepatient is female, multiply by 0.742. Results for patients <18 years ofage have not been validated by the MDRD study and should be interpretedwith caution.eGFR Result Interpretation:eGFR > or=60 is in the Normal RangeeGFR < 60 may mean kidney diseaseeGFR < 15 may mean kidney failureRanges recommended by the National Kidney Foundation,http://nkdep.ni h.gov Alcohol/Ethanol, [id number] 22:56:00 Test Item Value Reference Range Comments Alcohol, Ethyl (test 0.25 g/dL 0.00-0.01 Intoxicated 0.080 g/dL or code=ETOH) more Urinalysis [id number] 22:54:00 Test Item Value Reference Range Comments Color (test code=COLOR) Daisha Yellow,Straw,Pl yellow Clarity (test code=CLAR) Clear Clear Specific [place] (test 1.020 1.001-1.035 code=SPGR) pH (test code=PH) [...] Bacteria (test code=BACT) Few /HPF BHCG, Urine, [id number] 22:50:00 Test Item Value Reference Range Comments Preg Qual [Ur] (test code=HUHCG) Negative Negative CBC with [id number] 22:38:00 Test Item Value Reference Range Comments [...] Lymph Abs (test code=ALYMPH) 1.6 K/cumm 0.5-4.6 Finney Abs (test code=AMONO) 0.2 K/cumm 0.0-1.2 Eos Abs (test code=AEOS) 0.09 K/cumm 0.00-0.74 Baso Abs (test code=ABASO) 0.0 K/cumm 0.00-0.21
[2017-09-27 11:36] LABS: Absolute Lymphocytes (CBC) 1.1 K/uL (0.7-4.9); Absolute Monocytes 0.6 K/uL (0.1-1.3); Absolute Neutrophil 4.3 K/uL (1.8-8.0); Basophils % 0.5 % (0-1.3); Eosinophils % 1.2 % (0-4.4); Hematocrit 38.6 % (36.0-45.0); Lymphocytes % 17.6 % (15.3-44.8); MCH 26.8 pg (27.0-35.0); MCV 83.5 fL (80-100); MPV 6.8 fL (7.6-11.3); Monocytes % 10.1 % (3.3-12.3); RBC Red Blood Cell Count 4.62 M/uL (3.86-4.86)
[2017-09-27] MEDS ORDERED: ONDANSETRON 4 MG/2 ML VIAL ONE ×2 (11:37→13:24)
[2017-09-27] MEDS ORDERED: MORPHINE 10 MG/ML VIAL ONE ×2 (11:37→13:23)
[2017-09-27 11:43] LABS: Potassium 3.5 mEq/L (3.6-5.0)
[2017-09-27 11:50] LABS: Albumin 4.2 g/dL (3.2-5.5); Bilirubin Direct 0.2 mg/dL (0-0.2); Bilirubin Total 0.6 mg/dL (0.3-1.2); Protein, Total 7.3 g/dL (6.0-8.3)
[2017-09-27] MEDS ORDERED: NA CHLORIDE 0.9% 1,000 ML ONE (11:54)
[2017-09-27 13:43] LABS: Urine Blood 3+ (NEG); Urine Glucose NEGATIVE (NEG); Urine Protein 2+ (NEG); Urine Specific Gravity 1.015 (1.005-1.030)
[2017-09-27 13:46] LABS: Urine RBC >50 /HPF (NONE SEEN)
[2017-09-27 13:47] LABS: Urine Bacteria >50 /HPF (<20); Urine Culture Reflex Order NOT NEEDED
[2017-09-27] MEDS ORDERED: CEFTRIAXONE/SWI 1gm 0 GM/0 ML SYR ONE (14:22)
[2017-09-27] MEDS ORDERED: CEFTRIAXONE 1000 MG/VIAL ONE (15:38)
--- NOTE | 2017-09-27 15:57 | RAD REPORT ---
EXAM DESCRIPTION: CT - Abdomen Pelvis Wo Contrast - 09/27/2017 3:21 pm CLINICAL HISTORY: Right lower quadrant pain COMPARISON: CT study September 21 TECHNIQUE: Axial [address] imaging of the abdomen and pelvis was performed without IV contrast. No IV contrast was given because of allergy, abnormal renal function, patient refusal or physician re quest. Oral contrast was given. All CT scans are performed using dose optimization technique as appropriate and may include automated exposure control or mA/KV adjustment according to patient size. FINDINGS: No suspicious findings in the lung bases. The liver, spleen and pancreas show no suspicious findings on non-contrast imaging. Cholecystectomy c lips are present. No biliary tree dilatation. No hydronephrosis or suspicious renal mass. No significant adrenal finding. Isodense renal masses an d pyelonephritis cannot be excluded in the absence of IV contrast. The urinary bladder is without sig nificant finding. No gastric dilatation or wall thickening. No acute small bowel finding. Retrocecal appendix is normal . No acute colon process seen. No free air, free fluid or inflammatory stranding. No hernia, mass or bulky lymphadenopathy. Patient does have numerous small mesenteric lymph nodes more numerous than see n September 21. Uterus and ovaries show no suspicious findings. No acute bone finding. Disc and bony degenerative changes are present. L5 pars defects are present. IMPRESSION: Multiple small mesenteric lymph nodes are present increased in number from September 21. Thi s is nonspecific and can indicate mesenteric adenitis or nonspecific enteritis. No appendicitis or emergent finding. Full assessment is limited is the absence of IV contrast.
--- NOTE | 2017-09-27 16:07 | ER ---
Nurse's Notes [facility] Name: Shae Dockery Age: 27 yrs Sex: Female : 1990 Arrival Date: 09/27/2017 Time: 10:16 Bed 7 Private MD: Diagnosis: Mesenteric Adenitis;Urinary tract infection, site not specified Presentation: 09/27 10:18 Presenting complaint: Patient states: R lower abd pain that started 3 days ago, rolling hj on the floor; reports blood on stool, vomitus and urine; reports fever and chills;. Transition of care: patient was not received from another setting of care. Onset of symptoms was September 27, 2017. Care prior to arrival: None. 10:18 Method Of Arrival: Ambulatory hj 10:18 Acuity: AYESHA 3 hj 17:04 Initial Sepsis Screen: Does the patient meet any 2 criteria? No. Patient's initial ae1 sepsis screen is negative. Does the patient have a suspected source of infection? Yes: Dysuria/Frequency/Urgency/UTI. Triage Assessment: 10:23 General: Appears in no apparent distress. uncomfortable, Behavior is cooperative, hj appropriate for age, crying. Pain: Complains of pain in right lower quadrant. GI: Reports lower abdominal pain, nausea, vomiting. 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 08/29/2017 hj Historical: - Allergies: 10:23 Ibuprofen (Upset stomach); hj 10:23 Latex, Natural Rubber (Anaphylaxis); hj 10:23 tramadol (Seizures); hj 10:23 Tylenol (Liver Issues); hj 10:23 Ultram; hj - Home Meds: 10:26 Adderall 10 mg Oral tab 1 tab 2 times per day for Attention-Deficit Hyperactivity hj Disorder [Active]; Ativan Oral [Active]; Benadryl Oral [Active]; Bentyl 20 mg Oral tab 1 tab as needed for Irritable bowel syndrome [Active]; Carafate 1 gram Oral tab 1 tab daily [Active]; Geodon 20 mg Oral cap 1 cap daily [Active]; Geodon 20 mg Oral cap 1 cap 2 times per day [Active]; Klonopin 1 mg Oral tab 1 tab 3 times per day [Active]; Lasix Oral [Active]; lisinopril Oral [Active]; Paxil 20 mg Oral tab 1 tab once daily [Active]; Paxil Oral [Active]; Potassium Chloride Oral [Active]; Trazodone Oral [Active]; Spironolactone Oral [Active]; Zofran Oral [Active]; - PMHx: 10:23 ADD/ADHD; alcohol abuse; Anemia; Anxiety; Bipolar disorder; Cirrhosis; Crohn's; hj Depression; GI Bleed; Liver disease; multiple blood transfusions; pt trying to get on liver transplant list; Seizures; self harm; suicidal ideation; - PSHx: 10:23 Hernia repair; Gastric Bypass; Tonsillectomy; Cholecystectomy; hj - Immunization history:: Adult Immunizations not up to date. - Social history:: Smoking status: Patient/guardian denies using tobacco. Screenin:47 Abuse screen: Denies threats or abuse. Denies injuries from another. Nutritional jl7 screening: No deficits noted. Tuberculosis screening: No symptoms or risk factors identified. Fall Risk IV access (20 points). Total Pulido Fall Scale indicates No Risk (0-24 pts). Assessment: 11:00 General: Appears distressed, uncomfortable, unkempt, Behavior is cooperative, agitated, ae1 anxious, crying, inappropriate for age, restless. Neuro: Level of Consciousness is awake, alert, obeys commands, Oriented to person, place, situation. Cardiovascular: Heart tones S1 S2 present Patient's skin is warm and dry. Rhythm is regular. 11:00 Respiratory: Airway is patent Respiratory effort is even, unlabored, shallow, ae1 Respiratory pattern is regular, symmetrical, Breath sounds are clear bilaterally. 11:00 GI: Abdomen is round Bowel sounds present X 4 quads. Abd is soft Abdomen is tender to ae1 palpation in right lower quadrant. : No signs and/or symptoms were reported regarding the genitourinary system. Urine is cloudy. EENT: No signs and/or symptoms were reported regarding the EENT system. Derm: Multiple healing lacerations to the left inner forearm, one laceration has robin in place. Musculoskeletal: No signs and/or symptoms reported regarding the musculoskeletal system. 13:29 Reassessment: Provider notified of increased pain, new orders received. ae1 13:46 Reassessment:. Pain: Complains of pain in right lower quadrant and left lower quadrant. ae1 14:43 Reassessment: Patient bent arm in such a way that the IV catheter is bent and no longer ae1 infusing or flushing. Provider notified, new orders received. , . 15:42 Reassessment: Patient is upset, states she wants to be admitted for pain control. ae1 Provider notified. Patient awaiting provider to discuss plan of care. Vital Signs: 10:23 BP 140 / 81; Pulse 102; Resp 18; Temp 97.5; Pulse Ox 99% on R/A; Weight 77.11 kg; hj Height 5 ft. 7 in. (170.18 cm); Pain 10/10; 11:00 BP 141 / 85; Pulse 86; Resp 16 S; Pulse Ox 99% on R/A; jl7 11:15 BP 134 / 88; Pulse 75; Resp 16 S; Pulse Ox 99% on R/A; jl7 11:30 BP 121 / 68; Pulse 68; Resp 16 S; Pulse Ox 98% on R/A; jl7 11:49 BP 105 / 64; Pulse 68; Resp 16 S; Pulse Ox 98% on R/A; jl7 12:05 BP 120 / 78; Pulse 73; Resp 16; Pulse Ox 98% on R/A; ae1 13:20 BP 110 / 77; Pulse 69; Resp 16; Pulse Ox 98% on R/A; ae1 13:46 BP 112 / 63; Pulse 68; Resp 15; Pulse Ox 98% on R/A; ae1 16:45 BP 133 / 76; Pulse 68; Resp 17; Pulse Ox 98% on R/A; ae1 10:23 Body Mass Index 26.63 (77.11 kg, 170.18 cm) ED Course: 10:16 Patient arrived in ED. mr 10:21 Triage completed. hj 10:23 Arm band placed on right wrist. hj 11:05 Viji Dietrich, MICHELLE is Primary Nurse. jl7 11:13 Kamran Harris PA is PHCP. jr8 11:13 Ismael Chin MD is Attending Physician. jr8 11:19 Initial lab(s) drawn, by me. Inserted saline lock: 22 gauge in right antecubital area, jb1 using aseptic technique. Blood collected. 11:47 Patient has correct armband on for positive identification. Placed in gown. Bed in low jl7 position. Call light in reach. Side rails up X 1. Pulse ox on. NIBP on. Warm blanket given. 12:04 Marcellus Vargas, RN is Primary Nurse. ae1 15:[address] via stretcher. ae1 15:15 CT completed. Patient tolerated procedure well. Patient moved to CT via stretcher. sj Patient moved back from CT. 15:21 CT Abd/Pelvis - Without Cont In Process Unspecified. EDMS 16:16 Inserted saline lock: 22 gauge in left antecubital area, using aseptic technique. jb1 17:03 No provider procedures requiring assistance completed. IV discontinued, intact, ae1 bleeding controlled, No redness/swelling at site. Pressure dressing applied. Administered Medications: 06:40 Drug: Rocephin (cefTRIAXone) 1 grams {Note: I Gram administered IVP, per Provider. .} ae1 Route: IM; Site: Other; 17:02 Follow up: Response: No adverse reaction ae1 11:40 Drug: Zofran 4 mg Route: IVP; Site: right antecubital; jl7 14:10 Follow up: Response: Nausea is decreased ae1 11:43 Drug: morphine 4 mg Route: IVP; Site: right antecubital; jl7 14:09 Follow up: Response: Pain is decreased ae1 11:55 Drug: NS 0.9% 1000 ml Route: IV; Rate: 1000 ml; Site: right antecubital; ae1 17:02 Follow up: IV Status: Completed infusion ae1 13:21 Drug: Zofran 4 mg Route: IVP; Site: right antecubital; ae1 14:10 Follow up: Response: Nausea is decreased ae1 13:23 Drug: morphine 4 mg Route: IVP; Site: right antecubital; ae1 14:10 Follow up: Response: Pain is decreased ae1 14:43 Not Given (Physician Discretion): Rocephin 1 grams IV at calculated rate once; Given jrGregory slow IV push per pharmacy instructions 16:35 Drug: Phenergan 12.5 mg Route: IVP; Site: left antecubital; ae1 17:02 Follow up: Response: Nausea is decreased ae1 16:38 Drug: fentaNYL (PF) 75 mcg Route: IVP; Site: left antecubital; ae1 17:02 Follow up: Response: Pain is decreased ae1 Outcome: 16:06 Discharge ordered by . jrGregory 17:03 Discharged to home ambulatory, with family. ae1 17:03 Condition: stable 17:03 Discharge instructions given to patient, family. 17:05 Patient left the ED. ae1 Signatures: Dispatcher [employer] Salazar Valerio Maria mr Luis, Kamran Morris PA PA jr8 Morgan Bowden RN RN Marcellus Vargas RN RN ae1 Viji Dietrich RN RN jl7 Corrections: (The following items were deleted from the chart) 10:26 10:23 Temp 97.5F; 77.11 kg; Height 5 ft. 7 in.; BMI: 26.6; Pain 10/10; hj hj 10:28 10:23 Pulse 102bpm; Resp 18bpm; Pulse Ox 99% RA; Temp 97.5F; 77.11 kg; Height 5 ft. 7 hj in.; BMI: 26.6; Pain 10/10; hj 15:36 11:00 Respiratory: ae1 ae1
--- NOTE | 2017-09-27 16:07 | EDPHYS ---
Physician Documentation [facility] Name: Shae Dockery Age: 27 yrs Sex: Female : 1990 Arrival Date: 09/27/2017 Time: 10:16 Bed 7 Private MD: ED Physician Ismael Chin HPI: 09/27 15:44 This 27 yrs old Female presents to ER via Ambulatory with complaints of jr8 Bloody Stools, Vomiting. 15:44 The patient presents with abdominal pain in the lower abdomen. Onset: The jr8 symptoms/episode began/occurred acutely, yesterday. The symptoms do not radiate. Associated signs and symptoms: Pertinent positives: nausea, vomiting, and diarrhea. The symptoms are described as sharp. Modifying factors: The symptoms are alleviated by nothing, the symptoms are aggravated by nothing. Severity of pain: At its worst the pain was moderate in the emergency department the pain is unchanged. The patient has not experienced similar symptoms in the past. The patient has not recently seen a physician. 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 LMP 08/29/2017 hj Historical: - Allergies: 10:23 Ibuprofen (Upset stomach); hj 10:23 Latex, Natural Rubber (Anaphylaxis); hj 10:23 tramadol (Seizures); hj 10:23 Tylenol (Liver Issues); hj 10:23 Ultram; hj - Home Meds: 10:26 Adderall 10 mg Oral tab 1 tab 2 times per day for Attention-Deficit Hyperactivity hj Disorder [Active]; Ativan Oral [Active]; Benadryl Oral [Active]; Bentyl 20 mg Oral tab 1 tab as needed for Irritable bowel syndrome [Active]; Carafate 1 gram Oral tab 1 tab daily [Active]; Geodon 20 mg Oral cap 1 cap daily [Active]; Geodon 20 mg Oral cap 1 cap 2 times per day [Active]; Klonopin 1 mg Oral tab 1 tab 3 times per day [Active]; Lasix Oral [Active]; lisinopril Oral [Active]; Paxil 20 mg Oral tab 1 tab once daily [Active]; Paxil Oral [Active]; Potassium Chloride Oral [Active]; Trazodone Oral [Active]; Spironolactone Oral [Active]; Zofran Oral [Active]; - PMHx: 10:23 ADD/ADHD; alcohol abuse; Anemia; Anxiety; Bipolar disorder; Cirrhosis; Crohn's; hj Depression; GI Bleed; Liver disease; multiple blood transfusions; pt trying to get on liver transplant list; Seizures; self harm; suicidal ideation; - PSHx: 10:23 Hernia repair; Gastric Bypass; Tonsillectomy; Cholecystectomy; hj - Immunization history:: Adult Immunizations not up to date. - Social history:: Smoking status: Patient/guardian denies using tobacco. ROS: 15:44 Eyes: Negative for injury, pain, redness, and discharge, ENT: Negative for injury, jr8 pain, and discharge, Neck: Negative for injury, pain, and swelling, Cardiovascular: Negative for chest pain, palpitations, and edema, Respiratory: Negative for shortness of breath, cough, wheezing, and pleuritic chest pain, Back: Negative for injury and pain, MS/Extremity: Negative for injury and deformity, Skin: Negative for injury, rash, and discoloration, Neuro: Negative for headache, weakness, numbness, tingling, and seizure. 15:44 Abdomen/GI: Positive for abdominal pain, nausea, vomiting, and diarrhea, Negative for abdominal distension, anorexia, dysphagia, rectal pain, rectal bleeding, bowel incontinence, flatulence. Exam: 15:44 Eyes: Pupils equal round and reactive to light, extra-ocular motions intact. Lids and jr8 lashes normal. Conjunctiva and sclera are non-icteric and not injected. Cornea within normal limits. Periorbital areas with no swelling, redness, or edema. ENT: Nares patent. No nasal discharge, no septal abnormalities noted. Tympanic membranes are normal and external auditory canals are clear. Oropharynx with no redness, swelling, or masses, exudates, or evidence of obstruction, uvula midline. Mucous membranes moist. Neck: Trachea midline, no thyromegaly or masses palpated, and no cervical lymphadenopathy. Supple, full range of motion without nuchal rigidity, or vertebral point tenderness. No Meningismus. Cardiovascular: Regular rate and rhythm with a normal S1 and S2. No gallops, murmurs, or rubs. Normal PMI, no JVD. No pulse deficits. Respiratory: Lungs have equal breath sounds bilaterally, clear to auscultation and percussion. No rales, rhonchi or wheezes noted. No increased work of breathing, no retractions or nasal flaring. Back: No spinal tenderness. No costovertebral tenderness. Full range of motion. Skin: Warm, dry with normal turgor. Normal color with no rashes, no lesions, and no evidence of cellulitis. MS/ Extremity: Pulses equal, no cyanosis. Neurovascular intact. Full, normal range of motion. Neuro: Awake and alert, GCS 15, oriented to person, place, time, and situation. Cranial nerves II-XII grossly intact. Motor strength 5/5 in all extremities. Sensory grossly intact. Cerebellar exam normal. Normal gait. 15:44 Abdomen/GI: Inspection: abdomen appears normal, scar(s), are noted in the , Bowel sounds: active, all quadrants, Palpation: soft, in all quadrants, moderate abdominal tenderness, in the right lower quadrant, mass, is not appreciated, rebound tenderness, is not appreciated, voluntary guarding, is not appreciated, involuntary guarding, is not appreciated, no appreciated organomegaly, Indicators: McBurney's point is not tender, Galeas's sign is negative, Rovsing's sign is negative, Liver: no appreciated palpable abnormalities, tenderness, is not appreciated. Vital Signs: 10:23 BP 140 / 81; Pulse 102; Resp 18; Temp 97.5; Pulse Ox 99% on R/A; Weight 77.11 kg; hj Height 5 ft. 7 in. (170.18 cm); Pain 10/10; 11:00 BP 141 / 85; Pulse 86; Resp 16 S; Pulse Ox 99% on R/A; jl7 11:15 BP 134 / 88; Pulse 75; Resp 16 S; Pulse Ox 99% on R/A; jl7 11:30 BP 121 / 68; Pulse 68; Resp 16 S; Pulse Ox 98% on R/A; jl7 11:49 BP 105 / 64; Pulse 68; Resp 16 S; Pulse Ox 98% on R/A; jl7 12:05 BP 120 / 78; Pulse 73; Resp 16; Pulse Ox 98% on R/A; ae1 13:20 BP 110 / 77; Pulse 69; Resp 16; Pulse Ox 98% on R/A; ae1 13:46 BP 112 / 63; Pulse 68; Resp 15; Pulse Ox 98% on R/A; ae1 16:45 BP 133 / 76; Pulse 68; Resp 17; Pulse Ox 98% on R/A; ae1 10:23 Body Mass Index 26.63 (77.11 kg, 170.18 cm) hj MDM: 11:13 Patient medically screened. 8 16:05 Data reviewed: vital signs, nurses notes, lab test result(s), radiologic studies, CT jr8 scan, and as a result, I will discharge patient. Data interpreted: Pulse oximetry: on room air is 98 %. Interpretation: normal. 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 Response to treatment: the patient's symptoms have mildly improved after treatment. 09/27 11:14 Order name: Basic Metabolic Panel; Complete Time: 12:29 jr8 09/27 11:14 Order name: CBC with Diff; Complete Time: 11:54 [facility] 09/27 11:14 Order name: Creatinine for Radiology; Complete Time: 11:44 jr8 09/27 11:14 Order name: Hepatic Function; Complete Time: 12:29 jr8 09/27 11:14 Order name: Lipase; Complete Time: 12:29 jr8 09/27 11:14 Order name: Urine Microscopic Only; Complete Time: 13:49 jr8 09/27 12:29 Order name: CT Abd/Pelvis - Without Cont; Complete Time: 15:58 jr8 09/27 13:42 Order name: Urine Dipstick--Ancillary (enter results) [facility] 09/27 13:42 Order name: Urine --Ancillary (enter results) [facility] 09/27 13:43 Order name: Urine --Ancillary; Complete Time: 13:49 EDMS 09/27 13:43 Order name: Urine Dipstick-Ancillary; Complete Time: 13:49 EDMS 09/27 11:14 Order name: IV Saline Lock; Complete Time: 11:19 jr8 09/27 11:14 Order name: Labs collected and sent; Complete Time: 11:19 jr8 09/27 11:14 Order name: Urine Dipstick-Ancillary (obtain specimen); Complete Time: 14:16 jr8 Administered Medications: 06:40 Drug: Rocephin (cefTRIAXone) 1 grams {Note: I Gram administered IVP, per Provider. .} ae1 Route: IM; Site: Other; 17:02 Follow up: Response: No adverse reaction ae1 11:40 Drug: Zofran 4 mg Route: IVP; Site: right antecubital; jl7 14:10 Follow up: Response: Nausea is decreased ae1 11:43 Drug: morphine 4 mg Route: IVP; Site: right antecubital; jl7 14:09 Follow up: Response: Pain is decreased ae1 11:55 Drug: NS 0.9% 1000 ml Route: IV; Rate: 1000 ml; Site: right antecubital; ae1 17:02 Follow up: IV Status: Completed infusion ae1 13:21 Drug: Zofran 4 mg Route: IVP; Site: right antecubital; ae1 14:10 Follow up: Response: Nausea is decreased ae1 13:23 Drug: morphine 4 mg Route: IVP; Site: right antecubital; ae1 14:10 Follow up: Response: Pain is decreased ae1 14:43 Not Given (Physician Discretion): Rocephin 1 grams IV at calculated rate once; Given jr8 slow IV push per pharmacy instructions 16:35 Drug: Phenergan 12.5 mg Route: IVP; Site: left antecubital; ae1 17:02 Follow up: Response: Nausea is decreased ae1 16:38 Drug: fentaNYL (PF) 75 mcg Route: IVP; Site: left antecubital; ae1 17:02 Follow up: Response: Pain is decreased ae1 Disposition: 09/27/17 16:06 Discharged to Home. Impression: Mesenteric Adenitis, Urinary tract infection, site not specified. - Condition is Stable. - Discharge Instructions: Abdominal Pain, Adult, Urinary Tract Infection. - Prescriptions for Macrobid 100 mg Oral Capsule - take 1 capsule by ORAL route every 12 hours for 7 days; 14 capsule. promethazine 25 mg Oral Tablet - take 1 tablet by ORAL route every 6 hours As needed; 20 tablet. - Medication Reconciliation Form, Thank You Letter, Antibiotic Education, Prescription Opioid Use form. - Follow up: Private Physician; When: 2 - 3 days; Reason: Recheck today's complaints, Continuance of care, Re-evaluation by your physician. - Problem is new. - Symptoms have improved. Addendum: 09/30/2017 06:16 Co-signature as Attending Physician, Ismael Chin MD Available for consultation at p s1 all times. . Signatures: Dispatcher [employer] Kamran Bro PA PA jr8 Morgan Bowden RN RN hj Marcellus Vargas RN RN ae1 Viji Dietrich RN RN jl7 Ismael Chin MD MD ps1
[2017-09-27] MEDS ORDERED: PROMETHAZINE 25 MG/ML VIAL ONE (16:32)
[2017-09-27] MEDS ORDERED: FENTANYL CITR 100 MCG/2 ML ONE (16:33)
[2017-09-27] MEDS ORDERED: CEFTRIAXONE/SWI 1gm 1 GM/10 ML SYR ONE (16:34)
== END 2017-09-27 17:05 | disposition home or self-care (01) ==
LOC: ER 10:13
DX: N39.0 Urinary tract infection, site not specified (principal); I88.0 Nonspecific mesenteric lymphadenitis; F31.9 Bipolar disorder, unspecified; F90.9 Attention-deficit hyperactivity disorder, unspecified type; F10.10 Alcohol abuse, uncomplicated; G40.909 Epilepsy, unspecified, not intractable, without status epilepticus; Z88.6 Allergy status to analgesic agent; Z88.8 Allergy status to other drugs, medicaments and biological substances; Z91.040 Latex allergy status
CPT/HCPCS: 36415; 74176; 80048; 80076; 81003; 81015; 81025; 83690; 85025; 96361; 96372; 96374; 96375; 99284; J0696; J2405; J2550; J3010; J7030

== ENCOUNTER 2017-09-29 02:29 | Emergency (ER) | payer OTHER, SELFPAY ==
--- OUTSIDE RECORDS SUMMARY | 2017-09-29 02:31 | XMS REPORT | Clinical Summary ---
:1990 Author Organization [facility] Address [address] [place] [address] Phone Care Team Providers Name Role Phone [...] Not on file Results Not on fileafter 09/28/2016
--- OUTSIDE RECORDS SUMMARY | 2017-09-29 02:31 | XMS REPORT | Clinical Summary ---
:1990 Author Organization [facility] Address [address] [place] [id number] Care Team Providers Name Role Phone Andreas [...] without complication, unspecified gastrointestinal tract location after 09/28/2016 Social History Tobacco Use Types Packs/Day Years Used Date Current Every Day Smoker Smokeless Tobacco: Never Used Alcohol Use Drinks/Week oz/Week Comments No Sex Assigned at Date Recorded Not on file Last Filed Vital Signs Vital Sign Reading Time Taken Blood Pressure 138/88 07/07/2017 6:58 AM [employer]QUARE C[employer]TER Pulse 76 07/07/2017 6:58 AM [employer] Temperature 35.7 C (96.2 F) 07/07/2017 6:58 AM [employer] C[employer]TER Respiratory Rate 17 07/07/2017 6:58 AM SQUARE CUTTER Oxygen Saturation 100% 07/07/2017 6:58 AM SQUARE CUTTER Inhaled Oxygen Concentration - - Weight - - Height 170.2 cm (5' 7") 07/07/2017 12:46 AM SQUARE CUTTER Body Mass Index - - Plan of [...] and Americans. Specimen Performing Laboratory Plasma specimen [facility] [id number] [facility] [place] [address] CBC with platelet and differential (07/07/2017 1:14 [...] - 1.0 % Specimen Performing Laboratory Blood [facility] [id number] [facility] [place] [address] Thyroid stimulating hormone (07/07/2017 1:14 AM) Component Value Ref Range TSH 2.21 0.55 - 4.78 uIU/mL Specimen Performing Laboratory Serum [facility] [address] [place] [address] T4, free (07/07/2017 1:14 AM) Component Value Ref Range T4, free 0.9 0.8 - 1.8 ng/dL Specimen Performing Laboratory Serum [facility] [id number] [facility] [place] [address] Alcohol level, blood (07/07/2017 1:14 AM) Component Value Ref Range Alcohol <14.1 mg/dL Comment: Normal None Detected Legal Intoxication in [place]80 mg/dL (0.08%) - Whole Blood Toxic Ghdlpblmrrnqs584 mg/dL (0.2%) Potentially Epjkp566 - 500 mg/dL (0.35 - 0.5%) Alcohol percent 0.014 % Specimen Performing Laboratory Plasma specimen [facility] [place] [address] [place] [address] Acetaminophen level (07/07/2017 1:14 AM) Component Value Ref Range Acetaminophen level <15.9 ug/mL Comment: Therapeutic 10-30 ug/mL Possible Toxicity 150-200 ug/mL Probable Toxicity >200 ug/mL Specimen Performing Laboratory Serum [place] [address] [place] [address] Salicylate level (07/07/2017 1:14 AM) Component Value Ref Range Salicylate <0.4 mg/dL Comment: Therapeutic Range: 5 - 30 mg/dL Specimen Performing Laboratory Serum [facility] [place] [address] [place] [address] Comprehensive metabolic panel (07/07/2017 1:14 AM) Component [...] 1.2 mg/dL Specimen Performing Laboratory Plasma specimen [facility] [id number] [place] [address] Urinalysis screen and microscopy, with reflex to [...] UA None seen Specimen Performing Laboratory Urine [facility] [address] [place] [address] Urine drugs of abuse screen (07/07/2017 1:00 AM) Component Value Ref Range Amphetamine screen, urine Negative Methamphetamine screen, urine SEE COMMENT Comment: Test Not Performed. Methamphetamines and Methadone are not available from pilot plant technician. If needed, contact laboratory to send for referral laboratory. Barbiturate screen, urine Negative Benzodiazepine screen, urine Positive (A) Cocaine screen, urine Negative Methadone screen, urine SEE COMMENTComment: Test Not Performed. Opiates screen, urine Negative Phencyclidine screen, urine Negative Cannabinoid screen, urine Negative Tricyclic screen, urine Negative Comment: Drug screen minimum concentration of detectability Inyxeilhexvq7845 ng/mL Vmwfbgdmwrmkcdyr1622 ng/mL Barbiturates 300 ng/mL Anqtyxhpqrkembz901 ng/mL Epbzyrq815 ng/mL Wviptwgvu426 ng/mL Ipdlsvf064 ng/mL Phencyclidine 25 ng/mL Dqfogyvhuojt52 ng/mL Yxdfgfxdnc2494 ng/mL Negative test results indicates presumptive evidence of lack of clinically significant drug concentration in this urine specimen. Positive test results are presumptive evidence of clinically significant drug concentration in this urine specimen. Testing performed for medical purposes only. Specimen Performing Laboratory Urine [facility] [address] [place] [address] Urine culture (07/07/2017 1:00 AM) Component Value Ref Range Urine culture SEE COMMENTComment: Bacteriuria screen negative. Specimen Performing Laboratory [facility] [address] [place] [address] after 09/28/2016 Insurance Payer Benefit Plan / Group Subscriber ID Type Phone Address MEDICAID MEDICAID xxxxxxxxx Medicaid [address] [place] [address]
--- OUTSIDE RECORDS SUMMARY | 2017-09-29 02:31 | XMS REPORT ---
:1990 [facility] Address [address] [place] [address] Care Team Providers Name Role Phone Daniel [...] THC (test code=THC) POSITIVE Negative Comprehensive Metabolic [id number] 22:56:00 Test Item Value Reference Range Comments [...] race is not provided, and the patient isAfrican-Citizen Of The [place], multiply by 1.212. If sex is not provided, and thepatient is female, multiply by 0.742. Results for patients <18 years ofage have not been validated by the MDRD study and should be interpretedwith caution.eGFR Result Interpretation:eGFR > or=60 is in the Normal RangeeGFR < 60 may mean kidney diseaseeGFR < 15 may mean kidney failureRanges recommended by the National Kidney Foundation,http://nkdep.ni h.gov Alcohol/Ethanol, [id number] 22:56:00 Test Item Value Reference Range Comments Alcohol, Ethyl (test 0.25 g/dL 0.00-0.01 Intoxicated 0.080 g/dL or code=ETOH) more Urinalysis [id number] 22:54:00 Test Item Value Reference Range Comments Color (test code=COLOR) Daisha Yellow,Straw,Pl yellow Clarity (test code=CLAR) Clear Clear Specific [place] (test 1.020 1.001-1.035 code=SPGR) pH (test code=PH) [...] Bacteria (test code=BACT) Few /HPF BHCG, Urine, [id number] 22:50:00 Test Item Value Reference Range Comments Preg Qual [Ur] (test code=HUHCG) Negative Negative CBC with [id number] 22:38:00 Test Item Value Reference Range Comments [...] Lymph Abs (test code=ALYMPH) 1.6 K/cumm 0.5-4.6 Frontier Abs (test code=AMONO) 0.2 K/cumm 0.0-1.2 Eos Abs (test code=AEOS) 0.09 K/cumm 0.00-0.74 Baso Abs (test code=ABASO) 0.0 K/cumm 0.00-0.21
--- NOTE | 2017-09-29 02:59 | ER ---
Nurse's Notes [facility] Name: Shae Dockery Age: 27 yrs Sex: Female : 1990 Arrival Date: 09/29/2017 Time: 02:30 Bed 6 Private MD: Diagnosis: Chronic pain syndrome;Syncope and collapse-vasovagal Presentation: 09/29 02:47 Presenting complaint: Patient states: she is having abdominal pain was seen here 2 days bb ago and dx with a UTI was given prescription for antibiotics but has not started it yet. Transition of care: patient was not received from another setting of care. Onset of symptoms was September 26, 2017. Initial Sepsis Screen: Does the patient meet any 2 criteria? No. Patient's initial sepsis screen is negative. Does the patient have a suspected source of infection? No. Patient's initial sepsis screen is negative. Care prior to arrival: None. 02:47 Method Of Arrival: Ambulatory bb 02:47 Acuity: AYESHA 4 bb Triage Assessment: 02:54 General: Appears in no apparent distress. uncomfortable, Behavior is uncooperative. bb Pain: Complains of pain in abdomen Pain currently is 10 out of 10 on a pain scale. Pain began 2-3 days ago. Neuro: Level of Consciousness is awake, obeys commands, listless, Oriented to person, place, situation, Pupils are dilated, non-reactive. Cardiovascular: Heart tones S1 S2 present Capillary refill < 3 seconds Patient's skin is warm and dry. Pulses are all present. Edema is absent. Respiratory: Respiratory effort is even, unlabored, Breath sounds are clear bilaterally. GI: Abdomen is non-distended, Bowel sounds present X 4 quads. Abd is soft X 4 quads. Derm: Skin is pink, warm \T\ dry. Musculoskeletal: Circulation, motion, and sensation intact. 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 - bb Historical: - Allergies: 02:54 Ibuprofen (Upset stomach); bb 02:54 Latex, Natural Rubber (Anaphylaxis); bb 02:54 tramadol (Seizures); bb 02:54 Tylenol (Liver Issues); bb 02:54 Ultram; bb - Home Meds: 02:54 Adderall 10 mg Oral tab 1 tab 2 times per day for Attention-Deficit Hyperactivity bb Disorder [Active]; Ativan Oral [Active]; Benadryl Oral [Active]; Bentyl 20 mg Oral tab 1 tab as needed for Irritable bowel syndrome [Active]; Carafate 1 gram Oral tab 1 tab daily [Active]; Geodon 20 mg Oral cap 1 cap daily [Active]; Geodon 20 mg Oral cap 1 cap 2 times per day [Active]; Klonopin 1 mg Oral tab 1 tab 3 times per day [Active]; Lasix Oral [Active]; lisinopril Oral [Active]; Paxil 20 mg Oral tab 1 tab once daily [Active]; Potassium Chloride Oral [Active]; Spironolactone Oral [Active]; Zofran Oral [Active]; - PMHx: 02:54 ADD/ADHD; alcohol abuse; Anemia; Anxiety; Bipolar disorder; Cirrhosis; Crohn's; bb Depression; GI Bleed; Liver disease; multiple blood transfusions; pt trying to get on liver transplant list; Seizures; self harm; suicidal ideation; - PSHx: 02:54 Hernia repair; Gastric Bypass; Tonsillectomy; Cholecystectomy; bb - Immunization history:: Adult Immunizations unknown. - Social history:: Smoking status: unknown. Screenin:59 Abuse screen: Denies threats or abuse. Nutritional screening: No deficits noted. bb Tuberculosis screening: No symptoms or risk factors identified. Fall Risk None identified. Assessment: 02:59 Reassessment: No changes from previously documented assessment. see triage assessment. bb 03:11 Reassessment: Dr Diaz at bedside for discussion of discharge and recommendations pt bb instructed on need to follow-up with pain management. Pt agreed to offer to call her mother for transportation home pt assisted to exit via wheelchair. Vital Signs: 02:54 BP 136 / 79; Pulse 98; Resp 18; Temp 98(O); Pulse Ox 99% on R/A; Weight 77.11 kg (R); bb Height 5 ft. 7 in. (170.18 cm) (R); Pain 10/10; 02:54 Body Mass Index 26.63 (77.11 kg, 170.18 cm) bb ED Course: 02:30 Patient arrived in ED. am2 02:39 Lester Diaz MD is Attending Physician. gs 02:47 Reny Urban RN is Primary Nurse. bb 02:49 Triage completed. bb 02:54 Arm band placed on Patient placed in an exam room, on a stretcher, on pulse oximetry. bb EKG completed in triage. Results shown to MD. :58 EKG done, by ED staff, reviewed by Lester Diaz MD. cc 02:59 Patient has correct armband on for positive identification. Call light in reach. Side bb rails up X2. Pulse ox on. NIBP on. 03:17 No provider procedures requiring assistance completed. Patient did not have IV access bb during this emergency room visit. Administered Medications: No medications were administered Outcome: :58 Discharge ordered by . sloane 03:17 Discharged to home via wheelchair. bb 03:17 Condition: unchanged 03:17 Discharge instructions given to patient, Instructed on discharge instructions, follow up and referral plans. 03:18 Patient left the ED. bb Signatures: Reny Urban, MICHELLE RN Tyesha Correia Amanda am2 Lester Diaz MD MD
--- NOTE | 2017-09-29 02:59 | EDPHYS ---
Physician Documentation [facility] Name: Shae Dockery Age: 27 yrs Sex: Female : 1990 Arrival Date: 09/29/2017 Time: 02:30 Bed 6 Private MD: ED Physician Lester Diaz HPI: 09/29 02:54 This 27 yrs old Female presents to ER via Ambulatory with complaints of gs Urinary Problem, Abdominal Pain, Passed Out Prior To Arrival. 02:54 The patient presents with abdominal pain that is diffuse. Onset: The symptoms/episode gs began/occurred 1 month(s) ago. The symptoms do not radiate. Associated signs and symptoms: Pertinent negatives: nausea and vomiting, fever. The symptoms are described as crampy. Modifying factors: The symptoms are alleviated by nothing, the symptoms are aggravated by nothing. Severity of pain: At its worst the pain was moderate in the emergency department the pain is unchanged. The patient has experienced similar episodes in the past, chronically, pt has chronic pain, seen and worked up the other day CT labs didn't get meds filled. 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 - bb Historical: - Allergies: 02:54 Ibuprofen (Upset stomach); bb 02:54 Latex, Natural Rubber (Anaphylaxis); bb 02:54 tramadol (Seizures); bb 02:54 Tylenol (Liver Issues); bb 02:54 Ultram; bb - Home Meds: 02:54 Adderall 10 mg Oral tab 1 tab 2 times per day for Attention-Deficit Hyperactivity bb Disorder [Active]; Ativan Oral [Active]; Benadryl Oral [Active]; Bentyl 20 mg Oral tab 1 tab as needed for Irritable bowel syndrome [Active]; Carafate 1 gram Oral tab 1 tab daily [Active]; Geodon 20 mg Oral cap 1 cap daily [Active]; Geodon 20 mg Oral cap 1 cap 2 times per day [Active]; Klonopin 1 mg Oral tab 1 tab 3 times per day [Active]; Lasix Oral [Active]; lisinopril Oral [Active]; Paxil 20 mg Oral tab 1 tab once daily [Active]; Potassium Chloride Oral [Active]; Spironolactone Oral [Active]; Zofran Oral [Active]; - PMHx: 02:54 ADD/ADHD; alcohol abuse; Anemia; Anxiety; Bipolar disorder; Cirrhosis; Crohn's; bb Depression; GI Bleed; Liver disease; multiple blood transfusions; pt trying to get on liver transplant list; Seizures; self harm; suicidal ideation; - PSHx: 02:54 Hernia repair; Gastric Bypass; Tonsillectomy; Cholecystectomy; bb - Immunization history:: Adult Immunizations unknown. - Social history:: Smoking status: unknown. ROS: 02:54 Cardiovascular: Negative for chest pain. gs 02:54 Respiratory: Negative for shortness of breath. 02:54 Neuro: Positive for syncope, says was in pain and passed out. Exam: 02:54 Head/Face: Normocephalic, atraumatic. Eyes: Pupils equal round and reactive to light, gs extra-ocular motions intact. Lids and lashes normal. Conjunctiva and sclera are non-icteric and not injected. Cornea within normal limits. Periorbital areas with no swelling, redness, or edema. ENT: Nares patent. No nasal discharge, no septal abnormalities noted. Tympanic membranes are normal and external auditory canals are clear. Oropharynx with no redness, swelling, or masses, exudates, or evidence of obstruction, uvula midline. Mucous membranes moist. Neck: Trachea midline, no thyromegaly or masses palpated, and no cervical lymphadenopathy. Supple, full range of motion without nuchal rigidity, or vertebral point tenderness. No Meningismus. Chest/axilla: Normal chest wall appearance and motion. Nontender with no deformity. No lesions are appreciated. Cardiovascular: Regular rate and rhythm with a normal S1 and S2. No gallops, murmurs, or rubs. Normal PMI, no JVD. No pulse deficits. Respiratory: Lungs have equal breath sounds bilaterally, clear to auscultation and percussion. No rales, rhonchi or wheezes noted. No increased work of breathing, no retractions or nasal flaring. Back: No spinal tenderness. No costovertebral tenderness. Full range of motion. Skin: Warm, dry with normal turgor. Normal color with no rashes, no lesions, and no evidence of cellulitis. MS/ Extremity: Pulses equal, no cyanosis. Neurovascular intact. Full, normal range of motion. Neuro: Awake and alert, GCS 15, oriented to person, place, time, and situation. Cranial nerves II-XII grossly intact. Motor strength 5/5 in all extremities. Sensory grossly intact. Cerebellar exam normal. Normal gait. 02:54 Constitutional: The patient appears alert, awake. 02:54 Abdomen/GI: Inspection: abdomen appears normal, Palpation: soft, in all quadrants, nontender, when distracted . exam is non surgical, rebound tenderness, is not appreciated. 02:58 ECG was reviewed by the Attending Physician. Vital Signs: 02:54 BP 136 / 79; Pulse 98; Resp 18; Temp 98(O); Pulse Ox 99% on R/A; Weight 77.11 kg (R); bb Height 5 ft. 7 in. (170.18 cm) (R); Pain 10/10; 02:54 Body Mass Index 26.63 (77.11 kg, 170.18 cm) MDM: 02:45 Patient medically screened. 02:54 Differential diagnosis: non-specific abd pain, chronic pain, abdominal migraine, gs malingering. Data reviewed: vital signs, nurses notes. Response to treatment: the patient's symptoms have mildly improved after treatment, and as a result, I will discharge patient. 09/29 03:00 Order name: EKG; Complete Time: 03:01 09/29 02:51 Order name: EKG - Nurse/Tech; Complete Time: 02:58 EC:58 Rate is 61 beats/min. Rhythm is regular. MD interval is normal. QRS interval is normal. gs QT interval is normal. T waves are Normal. Clinical impression: Normal ECG. Interpreted by me. Administered Medications: No medications were administered Disposition: 09/29/17 02:58 Discharged to Home. Impression: Chronic pain syndrome, Syncope and collapse - vasovagal. - Condition is Stable. - Discharge Instructions: Chronic Pain, Syncope. - Medication Reconciliation Form, Thank You Letter, Antibiotic Education, Prescription Opioid Use form. - Follow up: Private Physician; When: 2 - 3 days; Reason: Re-evaluation by your physician. Signatures: Reny Urban RN RN bb Lester Diaz MD MD
--- NOTE | 2017-09-29 07:01 | EKG ---
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
== END 2017-09-29 03:18 | disposition home or self-care (01) ==
LOC: ER 02:29
DX: G89.4 Chronic pain syndrome (principal); F32.9 Major depressive disorder, single episode, unspecified; K76.9 Liver disease, unspecified; F90.2 Attention-deficit hyperactivity disorder, combined type; Z91.040 Latex allergy status; Z88.6 Allergy status to analgesic agent
CPT/HCPCS: 93005; 99283

== ENCOUNTER 2018-03-03 08:51 | Emergency (ER) | payer OTHER ==
--- OUTSIDE RECORDS SUMMARY | 2018-03-03 08:54 | XMS REPORT | Clinical Summary ---
:[address] [facility] Address [address] [place] [address] Phone Care Team Providers Name Role Phone [...] Not on file Results Not on fileafter 03/02/2017
--- OUTSIDE RECORDS SUMMARY | 2018-03-03 08:54 | XMS REPORT | Clinical Summary ---
:1990 Author Organization [facility] Address [address] [place] [id number] Care Team Providers Name Role Phone Andreas Benton MD Primary Care Provider Allergies Active Allergy Reactions Severity Noted Date Comments Latex 07/07/2017 Nsaids (Non-Steroidal Anti-Inflammatory Drug) 07/07/2017 Tramadol 07/07/2017 Acetaminophen 07/07/2017 Current Medications Prescription Sig. Disp. Refills Start Date End Date Status LORAZepam (ATIVAN) 1 Take by mouth. Active MG tablet traZODone (DESYREL) Take 150 mg by Active 100 MG tablet mouth nightly as needed for sleep. clindamycin (CLEOCIN) Take by mouth. 02/04/2018 Discontinued 150 MG capsule Active Problems Problem Noted Date Crohn disease 02/06/2018 Alcohol abuse 02/06/2018 Anemia 02/04/2018 Encounters Date Type Specialty Care Team Description 02/04/2018 Emergency General Internal Francisco J Silverio MD Anemia, unspecified type (Primary Dx); Medicine Jules Lerma Syncope and collapse; DO Diego Alcoholic intoxication without complication; Macy Fitch MD Iron deficiency anemia, unspecified iron deficiency anemia type 07/07/2017 Emergency Emergency Medicine Leandro Boston MD Anger reaction ( Primary Dx); Crohn's disease without complication, unspecified gastrointestinal tract location after 03/02/2017 Social History Tobacco Use Types Packs/Day Years Used Date Current Every Day Smoker Smokeless Tobacco: Never Used Alcohol Use Drinks/Week oz/Week Comments No Sex Assigned at Date Recorded Not on file Last Filed Vital Signs Vital Sign Reading Time Taken Blood Pressure 128/75 02/04/2018 2:55 PM CDT Pulse 73 02/04/2018 2:55 PM CDT Temperature 35.8 C (96.5 F) 02/04/2018 2:55 PM CDT Respiratory Rate 18 02/04/2018 2:55 PM CDT Oxygen Saturation 99% 02/04/2018 2:55 PM CDT Inhaled Oxygen Concentration - - Weight 81.7 kg (180 lb 1.9 oz) 02/04/2018 4:25 AM CDT Height 170.2 cm (5' 7") 02/04/2018 4:25 AM CDT Body Mass Index 28.21 02/04/2018 4:25 AM CDT Plan of Treatment Health Maintenance Due Date Last Done Comments CERVICAL CANCER SCREENING 01/21/2009 INFLUENZA VACCINE 01/10/2018 Procedures Procedure Name Priority Date/Time Associated Comments Diagnosis TOTAL IRON BINDING Routine 02/04/2018 1:10 Results for this CAPACITY PM CDT procedure are in the results section. TROPONIN Routine 02/04/2018 12:45 Results for this PM CDT procedure are in the results section. ZZESTIMATED GFR Routine 02/04/2018 12:45 Results for this PM CDT procedure are in the results section. COMPREHENSIVE METABOLIC Routine 02/04/2018 12:45 Results for this PANEL PM CDT procedure are in the results section. HC COMPLETE BLD COUNT Routine 02/04/2018 12:45 Results for this W/AUTO DIFF PM CDT procedure are in the results section. TROPONIN Timed 02/04/2018 8:48 Results for this AM CDT procedure are in the results section. TRANSFUSE RED BLOOD STAT 02/04/2018 5:44 CELLS AM CDT VT CRITICAL CARE, E/M Routine 02/04/2018 1:49 Results for this 30-74 MINUTES AM CDT procedure are in the results section. URINE DRUGS OF ABUSE STAT 02/04/2018 1:45 Results for this SCREEN AM CDT procedure are in the results section. XR CHEST 1 VW PORTABLE STAT 02/04/2018 1:38 Results for this AM CDT procedure are in the results section. HCG QUALITATIVE, URINE Routine 02/04/2018 1:35 Results for this SCREEN AM CDT procedure are in the results section. URINALYSIS SCREEN AND Routine 02/04/2018 1:35 Results for this MICROSCOPY, WITH REFLEX AM CDT procedure are in TO CULTURE the results section. URINE CULTURE Routine 02/04/2018 1:35 Results for this AM CDT procedure are in the results section. OCCULT BLOOD, STOOL Routine 02/04/2018 1:21 Results for this AM CDT procedure are in the results section. ECG 12-LEAD STAT 02/04/2018 1:02 Results for this AM CDT procedure are in the results section. PREPARE RBC Timed 02/04/2018 12:59 Results for this AM CDT procedure are in the results section. SMEAR REVIEW STAT 02/04/2018 12:59 Results for this AM CDT procedure are in the results section. TYPE AND SCREEN Timed 02/04/2018 12:59 Results for this AM CDT procedure are in the results section. ALCOHOL LEVEL, BLOOD STAT 02/04/2018 12:59 Results for this AM CDT procedure are in the results section. ZZESTIMATED GFR STAT 02/04/2018 12:59 Results for this AM CDT procedure are in the results section. LIPASE LEVEL STAT 02/04/2018 12:59 Results for this AM CDT procedure are in the results section. HEPATIC FUNCTION PANEL STAT 02/04/2018 12:59 Results for this AM CDT procedure are in the results section. HCG QUALITATIVE, SERUM STAT 02/04/2018 12:59 Results for this SCREEN AM CDT procedure are in the results section. MAGNESIUM LEVEL STAT 02/04/2018 12:59 Results for this AM CDT procedure are in the results section. TROPONIN STAT 02/04/2018 12:59 Results for this AM CDT procedure are in the results section. B NATRIURETIC PEPTIDE STAT 02/04/2018 12:59 Results for this AM CDT procedure are in the results section. HC COMPLETE BLD COUNT STAT 02/04/2018 12:59 Results for this W/AUTO DIFF AM CDT procedure are in the results section. BASIC METABOLIC PANEL STAT 02/04/2018 12:59 Results for this AM CDT procedure are in the results section. ECG ED PRELIMINARY Routine 02/04/2018 12:40 Results for this INTERPRETATION AM CDT procedure are in the results section. ZZESTIMATED GFR STAT 07/07/2017 1:14 Results for this AM PAN DEVULCANIZER procedure are in the results section. SALICYLATE LEVEL STAT 07/07/2017 1:14 Results for this AM PAN DEVULCANIZER procedure are in the results section. ACETAMINOPHEN LEVEL STAT 07/07/2017 1:14 Results for this AM PAN DEVULCANIZER procedure are in the results section. ALCOHOL LEVEL, BLOOD STAT 07/07/2017 1:14 Results for this AM PAN DEVULCANIZER procedure are in the results section. THYROID STIMULATING STAT 07/07/2017 1:14 Results for this HORMONE AM PAN DEVULCANIZER procedure are in the results section. T4, FREE STAT 07/07/2017 1:14 Results for this AM PAN DEVULCANIZER procedure are in the results section. COMPREHENSIVE METABOLIC STAT 07/07/2017 1:14 Results for this PANEL AM PAN DEVULCANIZER procedure are in the results section. HC COMPLETE BLD COUNT STAT 07/07/2017 1:14 Results for this W/AUTO DIFF AM PAN DEVULCANIZER procedure are in the results section. URINE DRUGS OF ABUSE STAT 07/07/2017 1:00 Results for this SCREEN AM PAN DEVULCANIZER procedure are in the results section. URINALYSIS SCREEN AND STAT 07/07/2017 1:00 Results for this MICROSCOPY, WITH REFLEX AM PAN DEVULCANIZER procedure are in TO CULTURE the results section. URINE CULTURE STAT 07/07/2017 1:00 Results for this AM PAN DEVULCANIZER procedure are in the results section. after 03/02/2017 Results Total iron binding capacity (02/04/2018 1:10 PM) Iron level 28 (L) 37 - 148 ug/dL [facility] GENOMIC MEDICINE Iron binding capacity 439 271 - 474 ug/dL [facility] AND GENOMIC MEDICINE % Saturation 6.4 (L) 15.0 - 38.0 % [facility] AND GENOMIC MEDICINE Specimen Plasma specimen Performing Organization Address City/State/[facility] Centercode Phone Number [facility]OLOGY AND [facility] [place] [address] [facility] Estimated GFR (02/04/2018 12:45 PM)Only the most recent of3 resultswithin the time period is included. GFR Non Af Amer >90 mL/min/1.73 m2 [facility] AND GENOMIC MEDICINE GFR Af Amer >90 mL/min/1.73 m2 [facility] OF Comment: PATHOLOGY AND GENOMIC Chronic kidney disease: <60 mL/min/1.73m2 MEDICINE Kidney failure: <15 mL/min/1.73m2 The estimated GFR is calculated from the IDMS-traceable Modification of Diet in Renal Disease Equation. The accuracy of the calculation is poor when the creatinine is normal. Calculated values >90 mL/min/1.73m2 are not reported. This equation has not been validated in children (<18 years), women, the elderly (>70 years), or ethnic groups other than Caucasians and Americans. Specimen Plasma specimen Performing Organization Address City/[facility] Centercode Phone Number [facility]OLOGY AND [address] [place] [address] [employer] [facility] Troponin (02/04/2018 12:45 PM)Only the most recent of3 resultswithin the time period is included. Troponin <0.30 0.00 - 0.30 ng/mL [facility]OLOGY Comment: AND GENOMIC MEDICINE 0.11 - 1.49 ng/mlMay indicate increased risk of acute coronary syndrome. >=1.5 ng/mlConsistent with acute myocardial infarction. The diagnostic value of a single normal or non-diagnostic result is questionable.Serial samples at 2-6 hour intervals are required to rule out acute myocardial injury. Specimen Plasma specimen Performing Organization Address City/State/Zipcode Phone Number [facility]Y AND [facility] [place] [place], [place] [phone] [place] [address] CBC with platelet and differential (02/04/2018 12:45 PM)Only the most recent of3 resultswithin the time period is included. WBC 4.3 4.2 - 11.0 k/uL [facility] AND GENOMIC MEDICINE RBC 4.22 4.04 - 5.86 m/uL [facility] AND GENOMIC MEDICINE HGB 10.2 (L) 11.5 - 15.3 g/dL [facility] AND GENOMIC MEDICINE HCT 35.2 34.0 - 45.0 % [facility] AND GENOMIC MEDICINE MCV 83.4 80.0 - 98.0 fL [facility] AND GENOMIC MEDICINE MCH 24.2 (L) 27.0 - 34.0 pg [facility] AND GENOMIC MEDICINE MCHC 29.0 (L) 31.5 - 36.5 g/dL [facility]Y AND GENOMIC MEDICINE RDW - SD 51.1 (H) 37.0 - 51.0 fL [facility] AND GENOMIC MEDICINE MPV 8.3 7.4 - 10.4 fL [facility] AND GENOMIC MEDICINE Platelet count 120 (L) 150 - 400 k/uL [facility]Y AND GENOMIC MEDICINE Nucleated RBC 0.00 /100 WBC [facility]OLOGY AND GENOMIC MEDICINE Neutrophils 55.7 36.0 - 66.0 % [facility]Y AND GENOMIC MEDICINE Lymphocytes 26.6 24.0 - 44.0 % [facility]Y AND GENOMIC MEDICINE Monocytes 13.7 (H) 0.0 - 6.0 % [facility]Y AND GENOMIC MEDICINE Eosinophils 1.4 0.0 - 6.0 % [facility]OLOGY AND GENOMIC MEDICINE Basophils 0.7 0.0 - 1.2 % [facility]OLOGY AND GENOMIC MEDICINE Immature granulocytes 1.9 (H) 0.0 - 1.0 % [facility] AND GENOMIC MEDICINE Specimen Blood Performing Organization Address City/State/Zipcode Phone Number [facility] AND [facility] [place] [address] GENOMIC MEDICINE Comprehensive metabolic panel (02/04/2018 12:45 PM)Only the most recent of2 resultswithin the time period is included. Sodium 143 135 - 150 mEq/L [facility] AND GENOMIC MEDICINE Potassium 4.4 3.5 - 5.0 mEq/L [facility]OLOGY AND GENOMIC MEDICINE Chloride 105 98 - 112 mEq/L [facility]OLOGY AND GENOMIC MEDICINE CO2 27 24 - 31 mmol/L [facility]OLOGY AND GENOMIC MEDICINE Anion gap 11@ANIO 7 - 15 mEq/L [facility]OLOGY AND GENOMIC MEDICINE BUN 6 (L) 7 - 18 mg/dL [facility]Y AND GENOMIC MEDICINE Creatinine 0.50 0.50 - 0.90 mg/dL [facility]Y AND GENOMIC MEDICINE Glucose 96 65 - 100 mg/dL [facility]OLOGY AND GENOMIC MEDICINE Calcium 8.8 8.3 - 10.2 mg/dL [facility]OLOGY AND GENOMIC MEDICINE Protein 6.7 6.3 - 8.3 g/dL [facility]Y AND GENOMIC MEDICINE Albumin 3.4 (L) 3.5 - 5.0 g/dL [facility]Y AND GENOMIC MEDICINE A/G ratio 1.0 0.7 - 3.8 [facility]Y AND GENOMIC MEDICINE Alkaline phosphatase 399 (H) 0 - 104 U/L [facility]Y AND GENOMIC MEDICINE AST 282 (H) 10 - 35 U/L [facility]OLOGY AND GENOMIC MEDICINE ALT 63 (H) 5 - 50 U/L [facility]OLOGY AND GENOMIC MEDICINE Total bilirubin 1.2 0.2 - 1.2 mg/dL [facility]Y AND GENOMIC MEDICINE Specimen Plasma specimen Performing Organization Address City/State/Zipcode Phone Number [facility]OLOGY AND [facility] [place] [address] GENOMIC MEDICINE Transfuse RBC (02/04/2018 10:45 AM)Only the most recent of2 resultswithin the time period is included.CRITICAL CARE (02/04/2018 1:49 AM) Narrative Performed At Francisco J Silverio MD 02/04/20181:49 AM Critical Care Performed by: FRANCISCO J SILVERIO Authorized by: FRANCISCO J SILVERIO Critical care provider statement: Critical care time (minutes):33 Critical care start time:02/04/2018 12:30 AM Critical care end time:02/04/2018 1:49 AM Critical care time was exclusive of:Separately billable procedures and treating other patients and teaching time Critical care was necessary to treat or prevent imminent or life-threatening deterioration of the following conditions:Circulatory failure Critical care was time spent personally by me on the following activities:Blood draw for specimens, development of treatment plan with patient or surrogate, discussions with primary provider, examination of patient, evaluation of patient's response to treatment, obtaining history from patient or surrogate, ordering and performing treatments and interventions, ordering and review of laboratory studies, ordering and review of radiographic studies, pulse oximetry, re-evaluation of patient's condition and review of old charts Shree 'yes' if you are taking over critical care for this patient from another provider.: no Urine drugs of abuse screen (02/04/2018 1:45 AM)Only the most recent of2 resultswithin the time period is included. Amphetamine screen, urine Negative [facility] AND GENOMIC MEDICINE Barbiturate screen, urine Negative [facility]Y AND GENOMIC MEDICINE Benzodiazepine screen, Negative [facility] OF urine PATHOLOGY AND GENOMIC MEDICINE Cocaine screen, urine Negative [facility]Y AND GENOMIC MEDICINE Methadone screen, urine Negative [facility]Y AND GENOMIC MEDICINE Opiates screen, urine Negative [facility]OLOGY AND GENOMIC MEDICINE Phencyclidine screen, urine Negative [facility]OLOGY AND GENOMIC MEDICINE Cannabinoid screen, urine Negative [facility] OF Comment: PATHOLOGY AND GENOMIC Drug screen minimum concentration of detectability MEDICINE Uxofrnjdqmzt9163 ng/mL Ygetljolarsxisir2947 ng/mL Barbiturates 300 ng/mL Uughzznmbalnptz176 ng/mL Whwareo895 ng/mL Mnawhdgek711 ng/mL Vcihreo995 ng/mL Phencyclidine 25 ng/mL Vbzezcwwucxu79 ng/mL Qixyvwlmye3934 ng/mL Negative test results indicates presumptive evidence of lack of clinically significant drug concentration in this urine specimen. Positive test results are presumptive evidence of clinically significant drug concentration in this urine specimen. Testing performed for medical purposes only. Specimen Urine Performing Organization Address City/State/Zipcode Phone Number [facility]Y AND [facility] [place] [address] GENOMIC MEDICINE XR Chest 1 Vw Portable (02/04/2018 1:38 AM) Narrative Performed At EXAMINATION: XR CHEST 1 VW PORTABLE RADIANT CLINICAL HISTORY: syncope chf COMPARISON:None. IMPRESSION: Low lung volumes. The lungs are otherwise clear. No pleural effusion or pneumothorax. Cardiac silhouette appears prominent due in part to technique. No acute osseous abnormalities. [facility]-[id number] Procedure Note Interface, Radiology Results Incoming - 02/04/2018 1:43 AM CDT EXAMINATION: XR CHEST 1 VW PORTABLE CLINICAL HISTORY: syncope chf COMPARISON: None. IMPRESSION: Low lung volumes. The lungs are otherwise clear. No pleural effusion or pneumothorax. Cardiac silhouette appears prominent due in part to technique. No acute osseous abnormalities. [facility]-[id number] Performing Organization Address City/[facility]/Zipcode Phone Number [facility] [address] [place] [address] Urinalysis screen and microscopy, with reflex to culture (02/04/2018 1:35 AM) Only the most recent of2 resultswithin the time period is included. Specimen site Clean catch [facility] AND GENOMIC MEDICINE Color, UA Straw [facility]OLOGY AND GENOMIC MEDICINE Appearance, UA Clear [facility]OLOGY AND GENOMIC MEDICINE Specific gravity, UA 1.010 1.001 - 1.035 [facility]Y AND GENOMIC MEDICINE pH, UA 6.0 5.0 - 8.5 [facility]Y AND GENOMIC MEDICINE Protein, UA Negative Negative [facility]OLOGY AND GENOMIC MEDICINE Glucose, UA Negative Negative [facility]OLOGY AND GENOMIC MEDICINE Ketones, UA Trace (A) Negative [facility]Y AND GENOMIC MEDICINE Bilirubin, UA Negative Negative [facility]OLOGY AND GENOMIC MEDICINE Blood, UA Negative Negative [facility]OLOGY AND GENOMIC MEDICINE Nitrite, UA Negative Negative [facility]OLOGY AND GENOMIC MEDICINE Urobilinogen, UA Negative <2.0 [facility]Y AND GENOMIC MEDICINE Leukocyte esterase, UA Negative Negative [facility]OLOGY AND GENOMIC MEDICINE Epithelial cells, UA Many /HPF [facility]OLOGY AND GENOMIC MEDICINE WBC, UA <1 0 - 5 /HPF [facility]OLOGY AND GENOMIC MEDICINE RBC, UA 4 0 - 5 /HPF [facility]OLOGY AND GENOMIC MEDICINE Bacteria, UA None seen None seen [facility]OLOGY AND GENOMIC MEDICINE Yeast, UA None seen [facility] OF PATHOLOGY AND GENOMIC MEDICINE Yeast with pseudohyphae, UA None seen [facility] OF [facility]OLOGY AND GENOMIC MEDICINE Specimen Urine Performing Organization Address City/State/[facility] Centercode Phone Number [facility]OLOGY AND [address] [place], [place] [phone] [place] [address] hCG qualitative, urine screen (02/04/2018 1:35 AM) hCG qualitative, urine Negative Negative [facility] OF Comment: PATHOLOGY AND GENOMIC The manufacturers stated sensitivity of HcG test for serum is >/=10 MEDICINE mIU/ml and urine is >/=20mIU/ml. Specimen Urine Performing Organization Address City/[facility] Centercode Phone Number [facility]OLOGY AND [address] [place] [phone] [place] [address] Urine culture (02/04/2018 1:35 AM)Only the most recent of2 resultswithin the time period is included. Urine culture SEE COMMENTComment: Bacteriuria [facility] PATHOLOGY screen negative. AND GENOMIC MEDICINE Performing Organization Address City/[facility] Centercode Phone Number [facility]OLOGY AND [address] [facility] [address] [place], [place] [phone] [place] [address] MEDICINE Occult blood, stool (02/04/2018 1:21 AM) Occult blood, stool Negative for occult blood. [facility] OF Comment: PATHOLOGY AND GENOMIC Specimen Information MEDICINE Specimen Source: Stool Specimen Site: Nonpreserved Specimen Stool - Nonpreserved Performing Organization Address City/State/Zipcode Phone Number [facility]OLOGY AND [address] [place], [place] [address] [place] [address] ECG 12 lead (02/04/2018 1:02 AM) Ventricular rate 80 [facility] Atrial rate 80 [facility] VT interval 134 [facility] QRSD interval 98 [facility] QT interval 386 [facility] QTC interval 445 [facility] P axis 1 55 [facility] QRS axis 1 78 [facility] T wave axis 39 [facility] EKG impression Normal sinus rhythm-Incomplete right bundle [facility] branch block-Cannot rule out Anterior infarct , age undetermined-Abnormal ECG-No previous ECGs available- Performing Organization Address City/State/Zipcode Phone Number [facility]USE [address] [place] [address] Smear review (02/04/2018 12:59 AM) Platelet slide review Lee adequate [facility]Y AND GENOMIC MEDICINE Anisocytosis 1+ [facility]OLOGY AND GENOMIC MEDICINE Polychromasia 1+ [facility] PATHOLOGY AND GENOMIC MEDICINE Stomatocytes 1+ [facility] OF PATHOLOGY AND GENOMIC MEDICINE Performing Organization Address City/[facility] Centercode Phone Number [facility] OF PATHOLOGY AND [place] [address] [employer] MEDICINE Prepare RBC, 2 Units (02/04/2018 12:59 AM) Product name Red Blood Cells -1, [facility] OF Leukored PATHOLOGY AND GENOMIC MEDICINE Unit number [id number] [facility]OLOGY AND GENOMIC MEDICINE Product code [id number] [facility]OLOGY AND GENOMIC MEDICINE Dispense status Transfused [facility]Y AND GENOMIC MEDICINE Blood expiration date [facility] PATHOLOGY AND GENOMIC MEDICINE Blood type code 7300 [facility] [place] [facility] AND GENOMIC MEDICINE Blood type B POSITIVE [facility] AND GENOMIC MEDICINE Product name Red Blood Cells -1, [facility] Leukored PATHOLOGY AND GENOMIC MEDICINE Unit number [id number] [facility] AND GENOMIC MEDICINE Product code [id number] [facility] AND GENOMIC MEDICINE Dispense status Transfused [facility] AND GENOMIC MEDICINE Blood expiration date [facility]Y AND GENOMIC MEDICINE Blood type code 7300 [facility]Y AND GENOMIC MEDICINE Blood type B POSITIVE [facility]Y AND GENOMIC MEDICINE Performing Organization Address City/[facility] Phone [facility] AND [place] [address] GENOMIC MEDICINE Type and screen (02/04/2018 12:59 AM) ABO grouping B [facility] AND GENOMIC MEDICINE Rh type POS [facility]Y AND GENOMIC MEDICINE Antibody screen (gel) NEG [facility] AND [facility] Specimen Blood Performing Organization Address [facility] Cent[facility]ode Phone Number [facility]OLOGY AND [address] [place] [phone] [place] [address] hCG qualitative, serum screen (02/04/2018 12:59 AM) hCG qualitative, serum Negative [facility] OF Comment: PATHOLOGY AND GENOMIC The manufacturers stated sensitivity of HcG test for serum is >/=10 MEDICINE mIU/ml and urine is >/=20mIU/ml. Specimen Blood Performing Organization Address [facility] Centercode Phone Number [facility] AND [facility] [facility] [address] B natriuretic peptide (02/04/2018 12:59 AM) BNP 16 0 - 100 pg/mL [facility] AND [facility] MEDICINE Specimen Blood Performing Organization Address [facility] Phone [facility] AND [address] [facility] [address] Magnesium level (02/04/2018 12:59 AM) Magnesium 2.00 1.60 - 2.60 mg/dL [facility] AND [facility] MEDICINE Specimen Plasma specimen Performing Organization Address [facility] [place] Phone Number [facility] AND [address] [facility] [address] Lipase level (02/04/2018 12:59 AM) Lipase 35 13 - 60 U/L [facility]Y AND GENOMIC MEDICINE Specimen Plasma specimen Performing Organization Address [facility] [place] Phone [facility]OLOGY AND [address] [facility] [place] [phone] [place] [address] Alcohol level, blood (02/04/2018 12:59 AM)Only the most recent of2 resultswithin the time period is included. Alcohol 282.8 mg/dL [facility]Y Comment: AND [facility] NormalNone Detected Legal Intoxication in [place] 80 mg/dL (0.08%) Toxic Concentration 200 mg/dL (0.2%) Potentially Fatal 350-500 mg/dL (0.35%-0.5%) Alcohol percent 0.283 % [facility]Y AND GENOMIC MEDICINE Specimen Blood Performing Organization Address City/[facility]ercode Phone Number [facility]Y AND [facility] [address] [place], [place] [phone] [place] [address] Hepatic function panel (02/04/2018 12:59 AM) Albumin 3.3 (L) 3.5 - 5.0 g/dL [facility] AND GENOMIC MEDICINE Total bilirubin 0.3 0.2 - 1.2 mg/dL [facility]Y AND GENOMIC MEDICINE Bilirubin direct <0.2 0.0 - 0.4 mg/dL [facility]OLOGY AND GENOMIC MEDICINE Alkaline phosphatase 326 (H) 0 - 104 U/L [facility]OLOGY AND GENOMIC MEDICINE Protein 6.7 6.3 - 8.3 g/dL [facility]Y AND GENOMIC MEDICINE ALT 34 5 - 50 U/L [facility]OLOGY AND GENOMIC MEDICINE AST 66 (H) 10 - 35 U/L [facility]OLOGY AND GENOMIC MEDICINE Specimen Plasma specimen Performing Organization Address City/[facility] [place] Phone Number [facility]Y AND [address] [place] [address] [place] [phone] [place] [address] Basic metabolic panel (02/04/2018 12:59 AM) Sodium 145 135 - 150 mEq/L [facility]Y AND GENOMIC MEDICINE Potassium 3.8 3.5 - 5.0 mEq/L [facility]OLOGY AND GENOMIC MEDICINE Chloride 108 98 - 112 mEq/L [facility]OLOGY AND GENOMIC MEDICINE CO2 24 24 - 31 mmol/L [facility]OLOGY AND GENOMIC MEDICINE Anion gap 13@ANIO 7 - 15 mEq/L [facility]OLOGY AND GENOMIC MEDICINE BUN 8 7 - 18 mg/dL [facility]OLOGY AND GENOMIC MEDICINE Creatinine 0.50 0.50 - 0.90 mg/dL [facility]Y AND GENOMIC MEDICINE Glucose 85 65 - 100 mg/dL [facility]OLOGY AND GENOMIC MEDICINE Calcium 8.4 8.3 - 10.2 mg/dL [facility]Y AND GENOMIC MEDICINE Specimen Plasma specimen Performing Organization Address City/[facility]/Zipcode Phone Number [facility] AND [address] [place] [address] [place], [place] [phone] [place] [address] ECG ED Preliminary Interpretation - NOT AN ORDER (02/04/2018 12:40 AM) Narrative Performed At Francisco J Silverio MD 02/04/20188:10 AM ECG ED Preliminary Interpretation - Not an Order Performed by: FRANCISCO J SILVERIO Authorized by: FRANCISCO J SILVERIO ECG reviewed by ED Physician in the absence of a cottage cheese maker: yes Interpretation: Interpretation: normal Rate: ECG rate:80 ECG rate assessment: normal Rhythm: Rhythm: sinus rhythm Ectopy: Ectopy: none QRS: QRS axis:Normal QRS intervals:Normal Conduction: Conduction: normal ST segments: ST segments:Normal T waves: T waves: normal Other findings: Other findings: poor R wave progression Thyroid stimulating hormone (07/07/2017 1:14 AM) TSH 2.21 0.55 - 4.78 uIU/mL [facility] DEPARTMENT OF PATHOLOGY AND GENOMIC MEDICINE Specimen Serum Performing Organization Address [facility] Centercode Phone Number [facility] DEPARTMENT OF PATHOLOGY AND [id number] [address] GENOMIC MEDICINE T4, free (07/07/2017 1:14 AM) T4, free 0.9 0.8 - 1.8 ng/dL [facility] DEPARTMENT OF PATHOLOGY AND GENOMIC MEDICINE Specimen Serum Performing Organization Address [facility] [place] Phone Number [facility] DEPARTMENT OF PATHOLOGY AND [id number] [address] GENOMIC MEDICINE Acetaminophen level (07/07/2017 1:14 AM) Acetaminophen level <15.9 ug/mL [facility] DEPARTMENT OF PATHOLOGY Comment: AND GENOMIC MEDICINE Therapeutic 10-30 ug/mL Possible Toxicity 150-200 ug/mL Probable Toxicity >200 ug/mL Specimen Serum Performing Organization Address [facility] [place] Phone Number [facility] DEPARTMENT OF PATHOLOGY AND [id number] [address] GENOMIC MEDICINE Salicylate level (07/07/2017 1:14 AM) Salicylate <0.4 mg/dL [facility] DEPARTMENT OF PATHOLOGY AND GENOMIC Comment: MEDICINE Therapeutic Range: 5 - 30 mg/dL Specimen Serum Performing Organization Address [facility] Centercode Phone Number [facility] DEPARTMENT OF PATHOLOGY AND [id number] [address] GENOMIC MEDICINE after 03/02/2017 Insurance Payer Benefit Plan / Group Subscriber ID Type Phone Address MISC MEDICAID REPLACEMENT MISC MEDICAID REPLACEMENT xxxxxxxxx [id number]
--- OUTSIDE RECORDS SUMMARY | 2018-03-03 09:00 | XMS REPORT | Continuity of Care Document ---
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 [id number] 517 Pachie S. LETTER 0azi7k21-14 10/09 10/09 Andreas Benton MD NEEDED 96-6x7q-8e6 [facility] 7-4o2j8ch6j 10a Pachie S. LETTER [id number]-n5 10/09 10/09 Andreas Benton MD NEEDED d3-485f-bd4 /2013 [facility] 6-804772j9x ce6 Pachie S. LETTER g32t12wg-v9 10/09 10/09 Andreas Benton MD NEEDED 90-9zx1-00g /2013 [facility] c-0h5i00ez4 8b5 Pachie S. LETTER [id number] 10/09 10/09 Andreas Benton MD NEEDED 43-4331-82b /2013 [facility] c-7788e0vv1 26f Pachie S. LETTER 3btk72e9-66 10/09 10/09 Andreas Benton MD NEEDED ad-72a1-wbo /2013 [facility] [id number] 9ba Pachie S. Unknown [id number]-m5 10/21 10/21 Andreas Benton MD a9-489e-a05 /2013 [facility] 5-5723h89d4 d70 Pachie S. Unknown 7su8s87a-35 10/21 10/21 Andreas Benton, 3a-48ca-b39 /2013 [facility] 6-bu6706y14 122 Pachie S. Unknown [id number] 10/21 10/21 Andreas Benton, 3c-0tc6-621 /2013 [facility] 6-00r58v1ke 8d1 Pachie S. Unknown 10l4a10v-6h 10/21 10/21 Andreas Benton, f8-2v5w-3ip /2013 [facility] 4-47log247z 38f Pachie S. Unknown [id number] 10/21 10/21 Andreas Benton, b5-4594-bba /2013 [facility] c-7v23ej27x 1ca Pachie S. Unknown [id number]-r7 10/21 10/21 Andreas Benton, 37-6a92-xd5 [facility] 5-l5h944o7u 788 Pachie S. Unknown 0051qp4t-pf 10/21 10/21 Andreas Benton MD 4f-409d-aab /2013 [facility] 1-790395erx 2aa Pachie S. Unknown [id number] 10/21 10/21 Andreas Benton MD d9-4eef-8a8 [facility] e-rw2acbtk4 031 Pachie S. Unknown 216pf6uo-62 10/21 10/21 Andreas Benton MD 79-4yx4-5l6 [facility] 0-v85vv00c2 7ae Pachie S. Unknown [id number]-e4 10/21 10/21 Andreas Benton MD 79-5c5z-j8k /2013 [facility] 9-[id number] e72 Pachie S. Unknown 2m0h7667-2v 10/21 10/21 Andreas Benton MD 97-4975-8bb [facility] f-[id number] b0e Pachie S. Unknown qghy1pd4-j9 10/21 10/21 Andreas Benton MD 1c-435a-820 /2013 [facility] f-yh17ewcgp 3f1 Pachie S. Unknown l2261qan-2e 10/21 10/21 Andreas Benton, 4b-4983-92a /2013 [facility] 6-[id number] 7d9 Pachie S. Unknown [id number] 10/21 10/21 Andreas Benton, 49-4760-90 /2013 [facility] 1-6904ts6lq 143 Pachie S. Unknown 17bf802k-61 10/21 10/21 Andreas Benton, 08-9b79-b71 /2013 [facility] 4-002p394h0 f2b Pachie S. Unknown 2j4938v0-15 10/21 10/21 Andreas Benton, c5-411f-90 [facility] 1-n08ch876g ed4 Pachie S. Unknown [id number]-z9 10/21 10/21 Andreas Benton, 4d-38j0-gm1 [facility] 7-69s15czre 341 Pachie S. Unknown 5m62140d-5o 10/21 10/21 Andreas Benton MD b1-4896-a10 [facility] c-[id number] 8d0 Pachie S. Unknown 12vc1b98-9r 10/21 10/21 Andreas Benton, 3d-2mb1-j7j [facility] b-q8r22nuz2 cc8 Pachie S. Unknown [id number] 10/21 10/21 Andreas Benton MD 1d-479f-ad3 [facility] d-[id number] 293 Pachie S. Unknown [id number] 10/21 10/21 Andreas Benton MD 35-1q6d-lx3 [facility] 0-996e4j4ht b26 Pachie S. Unknown 8bem71df-89 10/21 10/21 Andreas Benton MD 73-75q3-9zl [facility] c-l5n24u59e bc1 Pachie S. Unknown [id number]-b5 10/21 10/21 Andreas Benton MD 7c-407a-9d0 [facility] 4-[id number] 798 Pachie S. Unknown 24t0gjj6-1f 10/21 10/21 Andreas Benton, ca-17n3-fk3 /2013 [facility] e-[id number] 1a5 Pachie S. Unknown [id number] 10/21 10/21 Andreas Benton, d1-408f-af3 /2013 [facility] a-5o684y37x 8d3 Pachie S. Unknown q1348go9-40 10/21 10/21 Andreas Benton MD fd-79k7-530 /2013 [facility] 3-o6n1ua9j7 119 Pachie S. Unknown i1k2hgp2-60 10/21 10/21 Andreas Benton MD 41-7rq8-fng /2013 [facility] 9-pp720o7x8 96a Pachie S. Unknown 0th5w9o9-ra 10/21 10/21 Andreas Benton MD 47-3s40-mny /2013 [facility] 1-26l983kar 35c Pachie S. Unknown [id number]-a4 10/21 10/21 Andreas Benton MD 21-4950-ac4 /2013 [facility] 6-9rrd026ih 405 Pachie S. Unknown [id number]-80 10/21 10/21 Andreas Benton MD de-4340-81b /2013 [facility] c-00vk099gq 9b9 Pachie S. Unknown 223412k8-72 10/21 10/21 Andreas Benton MD 8c-4y0z-80b [facility] c-6qsvp60vv 2dd Pachie S. Unknown [id number]-q2 10/21 10/21 Andreas Benton MD 64-89u8-t88 [facility] e-v09cei096 3e0 Pachie S. Unknown 6n3jl213-ml 10/21 10/21 Andreas Benton MD 02-2i22-ji1 [facility] b-62la47k48 f2e Pachie S. Unknown h05z26i5-2w 10/21 10/21 Andreas Benton MD 12-8v6y-vb3 [facility] a-2123u90i5 9c8 Pachie S. Unknown [id number] 11/01 11/01 Kalieellen Chetan, 10-4ddd-94c /2013 [facility] d-[id number] 722 Pachie S. Unknown [id number]-ed 11/01 11/01 Kalieellen Chetan, 61-4351-830 /2013 [facility] b-[id number] bb4 Pachie S. Unknown 1687253h-4s 11/01 11/01 Andreas Benton MD 06-6a82-45w /2013 [facility] 1-[id number] 666 Pachie S. Unknown g0m6yw81-66 11/01 11/01 Kalieellen MD Chetan a4-41db-93d /2013 [facility] 0-80m57ax18 e0a Pachie S. Unknown [id number] 11/01 11/01 Andreas Benton MD 7c-4eae-966 /2013 [facility] 0-ohs1lk592 ac2 Pachie S. Unknown [id number] 11/01 11/01 Andreas Benton MD 20-4r99-d36 /2013 [facility] 2-337768t7g 012 Pachie S. Unknown eq3o91a0-4x 11/01 11/01 Andreas Benton MD b5-4159-821 /2013 [facility] 8-387mfv124 1c6 Pachie S. Unknown 35707iw5-19 11/01 11/01 Andreas Benton MD 67-4cbb-9ae /2013 [facility] 6-x2z37f974 061 Pachie S. Unknown 7tv56jp5-59 11/01 11/01 Andreas Benton MD 20-5w8w-856 /2013 [facility] 2-vy95g83t7 588 Pachie S. Unknown [id number]-0a 11/01 11/01 Andreas Benton MD fb-4922-aac /2013 [facility] f-x324z3fbu 8eb Pachie S. Unknown 7y5c3zy1-68 11/01 11/01 Andreas Benton MD 41-20s9-b5q /2013 [facility] a-6tt29526j 3bf Pachie S. Unknown 70c488d3-v5 11/01 11/01 Kalieellen Chetan, b7-3d2r-he0 /2013 [facility] 8-8d0zzix18 e50 Pachie S. Unknown 57zxi86q-n1 11/01 11/01 Andreas Benton, a0-7qp3-i5j /2013 [facility] 6-35480t7v3 08b Pachie S. Unknown os19gg89-78 11/01 11/01 Andreas Benton, 88-77c7-v5k /2013 [facility] 0-54530845l 304 Pachie S. Unknown [id number]-74 11/01 11/01 Andreas Benton, 70-74p1-0x5 /2013 [facility] 5-20970q0br 571 Pachie S. Unknown [id number] 11/01 11/01 Andreas Benton, 34-7p62-fg5 /2013 [facility] b-35xz677re 95e Pachie S. Unknown [id number]-50 11/01 11/01 Andreas Benton MD d0-7h7z-540 /2013 [facility] 6-[id number] efc Pachie S. Unknown [id number]-w5 11/01 11/01 Andreas Benton MD 37-2q5n-p79 [facility] c-abdxm4x43 297 Pachie S. Unknown [id number] 11/01 11/01 Andreas Benton MD fe-0s3d-w4z /2013 [facility] d-20k8bn724 69e Pachie S. Unknown [id number]-fp 11/01 11/01 Andreas Benton MD d5-3y31-94b /2013 [facility] b-gi5b7cz18 e6f Pachie S. Unknown 50q71p3s-v9 11/01 11/01 Andreas Benton MD bf-6y49-g11 [facility] a-5j40828s2 453 Pachie S. Unknown [id number]-77 11/01 11/01 Andreas Benton MD 26-449c-84b /2013 [facility] [id number] 041 Pachie S. Unknown laf327e7-g4 11/01 11/01 Kalieellen Chetan, a0-496c-b5a /2013 [facility] b-[id number] 1e2 Pachie S. Unknown hn219x63-57 11/01 11/01 Kalieellen Chetan, 21-1yu0-d65 /2013 [facility] 9-qxq529mo8 b54 Pachie S. Unknown h9k9eq90-c6 11/01 11/01 Kalieellen Chetan, 8a-4544-b6d /2013 [facility] a-a5j6ebsi3 e54 Pachie S. Unknown 9tvw2e91-mb 11/01 11/01 Kalieellen Chetan, b9-09n8-2r8 /2013 [facility] a-ey0p33ma4 6a8 Pachie S. Unknown ehf6e022-t6 11/01 11/01 Andreas Benton, b2-48ea-b28 [facility] 8-0st22t12m b02 Pachie S. Unknown 2c0p5903-30 11/01 11/01 Andreas Benton MD ec-4afc-ac5 [facility] 9-z89xvki3v da3 Pachie S. Unknown 0113lj85-1w 11/01 11/01 Andreas Benton MD f8-46cd-a8c /2013 [facility] 2-2g8fcvt9w bfe Pachie S. Unknown 57elq1gc-j9 11/01 11/01 Andreas Benton MD 77-44b1-1m2 [facility] 8-[id number] 429 Pachie S. Unknown 2p253bn6-r8 11/01 11/01 Andreas Benton MD d6-44cf-a4e /2013 [facility] [id number] 391 Pachie S. Unknown b0zw6821-y6 11/01 11/01 Andreas Benton MD 7e-7us4-w51 /2013 [facility] 8-up0e59vx6 e2c Pachie S. Unknown k2o94yp6-gw 11/01 11/01 Andreas Benton MD 43-2i93-z9o /2013 [facility] c-[id number] f55 Pachie S. seizure 9u117861-4z 12/05 12/05 Andreas Benton MD 9f-4abd-b74 /2013 [facility] a-96t669w85 142 Pachie S. seizure [id number] 12/05 12/05 Andreas Benton MD 15-02g9-4m9 /2013 [facility] 1-lohgr7pq7 e92 Pachie S. seizure 10i7613j-48 12/05 12/05 Andreas Benton MD e6-491a-8ed /2013 [facility] c-cx53z51i4 976 Pachie S. seizure iwxv97l9-17 12/05 12/05 Andreas Benton MD 95-491b-afc /2013 [facility] b-547j51iyv 0a0 Pachie S. seizure 746029wp-35 12/05 12/05 Andreas Benton MD d1-439b-be0 /2013 [facility] [id number] ce0 Pachie S. seizure 66vio084-z2 12/05 12/05 Andreas Benton MD 79-42ce-831 /2013 [facility] e-e946o2ka2 93d Pachie S. seizure qc2s7114-6k 12/05 12/05 Andreas Benton MD 8d-2gq3-3v1 /2013 [facility] [id number] c41 Pachie S. seizure zy7341ze-o6 12/05 12/05 Andreas Benton MD f0-42da-b09 /2013 [facility] 9-5bb7apn28 345 Pachie S. seizure t2052ruu-20 12/05 12/05 Andreas Benton MD e7-39f6-xvv /2013 [facility] 6-87oja30b6 947 Pachie S. seizure ww3l0901-95 12/05 12/05 Andreas Benton MD e8-462e-8a4 /2013 [facility] [id number] 68f Pachie S. seizure c5f56647-3a 12/05 12/05 Andreas Benton MD 09-45cc-90c /2013 [facility] 2-e9x8256v4 62c Pachie S. seizure t9zq9182-00 12/05 12/05 Andreas Benton MD dd-60v1-p78 /2013 [facility] e-[id number] d04 Pachie S. seizure t72fm72p-l9 12/05 12/05 Andreas Benton MD 5a-48cd-858 /2013 [facility] d-[id number] 4d6 Pachie S. seizure 9243mwc8-n2 12/05 12/05 Andreas Benton MD 86-6q34-28k /2013 [facility] a-fi963t7e6 0a1 Pachie S. seizure 3l14ax79-83 12/05 12/05 Andreas Benton MD 41-4521-aa /2013 [facility] [id number] 548 Pachie S. seizure 4c4c742q-he 12/05 12/05 Andreas Benton MD 6b-98r4-6cx /2013 [facility] f-[id number] f6e Pachie S. seizure il7iq92d-9a 12/05 12/05 Andreas Benton MD ea-43fe-b29 /2013 [facility] b-1m771b4e3 720 Pachie S. seizure ylg2345q-69 12/05 12/05 Andreas Benton MD a3-460f-90 [facility] e-2g07c78k8 36d Pachie S. seizure fio8u913-31 12/05 12/05 Andreas Benton MD f7-10j4-h36 /2013 [facility] e-jgzy450m1 f5f Pachie S. seizure 8f4g9988-1j 12/05 12/05 Andreas Benton MD 92-5vp1-190 /2013 [facility] a-9r130l549 e96 Pachie S. seizure 0k96m612-a7 12/05 12/05 Andreas Benton MD 18-97z5-bx6 /2013 [facility] a-3iz14l228 18f Pachie S. seizure 3xma4avp-z2 12/05 12/05 Andreas Benton MD 8b-2a08-501 /2013 [facility] 4-[id number] 7b4 Pachie S. seizure f41k462f-43 12/05 12/05 Andreas Benton MD ff-42dd-80b /2013 [facility] 2-70y2w2jg2 b0a Pachie S. seizure q05410b9-1q 12/05 12/05 Andreas Benton MD 1a-42h1-468 /2013 [facility] 1-0925v218o bd8 Pachie S. seizure u172o03m-t1 12/05 12/05 Andreas Benton MD dc-37f0-368 /2013 [facility] 0-31b0cb80x b0c Pachie S. seizure ic863469-gh 12/05 12/05 Andreas Benton MD 9e-4734-abc /2013 [facility] d-a086d05bb 9e4 Pachie S. seizure 620p6up8-8h 12/05 12/05 Andreas Benton MD e7-5m76-8nt /2013 [facility] 1-x3w2e912u 85c Pachie S. seizure yl1w78ad-ru 12/05 12/05 Andreas Benton MD a4-2b1n-nx8 /2013 [facility] 4-44511606v 971 Pachie S. seizure 76207fb8-1h 12/05 12/05 Andreas Benton MD ee-3z1k-p8f /2013 [facility] 8-lo7r4hj0p 638 Pachie S. seizure 77a6izjb-55 12/05 12/05 Andreas Benton MD a2-478b-940 /2013 [facility] d-1xa35h6e9 4df Pachie S. seizure mz26t72o-n7 12/05 12/05 Andreas Benton MD 8e-6c74-5pb /2013 [facility] d-[id number] 4b7 Pachie S. seizure 45g46403-41 12/05 12/05 Andreas Benton MD 0f-42ef-b65 /2013 [facility] e-7kls18e50 a21 Pachie S. Unknown 13419cc7-63 01/07 01/07 Andreas Benton MD 48-4256-948 /2013 [facility] c-9osp0041i a2f Pachie S. Unknown bl078z7n-4y 01/07 01/07 Andreas Benton, a4-4259-81d /2013 [facility] 0-4952g8osy d4a Pachie S. Unknown g99et973-70 01/07 01/07 Andreas Benton, d5-2f81-m1b /2013 [facility] 0-[id number] 80e Pachie S. Unknown [id number] 01/07 01/07 Andreas Benton MD 6b-9u77-i4l /2013 [facility] b-[id number] 93d Pachie S. Unknown [id number] 01/07 01/07 Andreas Benton MD 1e-9y5n-140 /2013 [facility] 6-h3k00i2t9 7de Pachie S. Unknown [id number]-77 01/07 01/07 Andreas Benton MD 49-4dce-b5b /2013 [facility] e-23i2gj6s0 6b9 Pachie S. Unknown 0956g20m-3g 01/07 01/07 Andreas Benton MD 7d-0qt0-047 /2013 [facility] e-[id number] 30b Pachie S. Unknown [id number] 01/07 01/07 Andreas Benton MD 96-59w5-jx1 /2013 [facility] b-[id number] 1f2 Pachie S. Unknown 8yo499th-ra 01/07 01/07 Andreas Benton MD fc-2l62-1g5 /2013 [facility] 4-87078i57h 7e8 Pachie S. Unknown [id number] 01/07 01/07 Andreas Benton MD 02-12w4-6zi /2013 [facility] c-02me14gvv 4c3 Pachie S. Unknown crz95h3f-n1 01/07 01/07 Andreas Benton MD dd-3f3p-275 /2013 [facility] 8-ecx45dtx9 661 Pachie S. Unknown 80k11031-2s 01/07 01/07 Andreas Benton MD 97-4vn8-1h0 /2013 [facility] [id number] cf7 Pachie S. Unknown 09137xuh-s1 01/07 01/07 Andreas Benton MD 11-497c-a71 /2013 [facility] 6-7d7wd6ftx 8ec Pachie S. Unknown 1102s4c5-w4 01/07 01/07 Andreas Benton MD 85-9z04-k7m /2013 [facility] 8-0892b793h 064 Pachie S. Unknown ctc8hi10-86 01/07 01/07 Andreas Benton MD f0-46af-9c6 /2013 [facility] f-lmx396y66 737 Pachie S. Unknown q20813o3-bb 01/07 01/07 Andreas Benton MD e9-7x70-141 /2013 [facility] a-[id number] afd Pachie S. Unknown l6418vxo-ue 01/07 01/07 Andreas Benton MD 05-4579-9b7 [facility] 9-xc3979l2u a28 Pachie S. Unknown h63gjft1-o1 01/07 01/07 Andreas Benton MD 76-42ca-a99 /2013 [facility] b-04npo09do 36c Pachie S. Unknown 8r60gx27-9t 01/07 01/07 Andreas Benton MD 72-42dc-9e1 /2013 [facility] [id number] 8be Pachie S. Unknown 37oc6564-y4 01/07 01/07 Andreas Benton MD 7b-4675-b0b /2013 [facility] a-f734y3k4u 386 Pachie S. Unknown [id number] 01/07 01/07 Andreas Benton MD b8-4331-88e /2013 [facility] d-[id number] 8af Pachie S. Unknown qsy2fl3x-20 01/07 01/07 Andreas Benton MD e6-9f25-7n5 /2013 [facility] [id number] 829 Pachie S. Unknown [id number] 01/07 01/07 Andreas Benton MD e4-5c63-5bc /2013 [facility] e-[id number] c19 Pachie S. Unknown 323aud66-00 01/07 01/07 Andreas Benton MD 59-42fa-8ed /2013 [facility] c-[id number] 63d Pachie S. Unknown 8w16ni19-14 01/07 01/07 Andreas Benton MD 4c-33h3-q77 /2013 [facility] 5-6f4i29b1k 59d Pachie S. Unknown 6102109d-7g 01/07 01/07 Andreas Benton MD bb-426d-b10 /2013 [facility] 6-1351667u6 c6c Pachie S. Unknown 405l9p57-49 01/07 01/07 Andreas Benton MD 68-43i1-5c7 /2013 [facility] d-[id number] 075 Pachie S. Unknown 44bg55mg-8w 01/07 01/07 Andreas Benton MD 2c-4585-9f9 /2013 [facility] b-v7o2kzucy 9f3 Pachie S. Unknown 21moi6d0-35 01/07 01/07 Andreas Benton MD 3d-4646-af9 /2013 [facility] 8-204l5k05j 2c2 Pachie S. Unknown [id number]-45 01/07 01/07 Andreas Benton MD c3-98v8-q5b /2013 [facility] [id number] 0d6 Pachie S. Unknown [id number]-xd 01/07 01/07 Andreas Benton MD e6-4378-8c3 /2013 [facility] a-a5sj477k1 950 Pachie S. Unknown [id number]-a4 01/07 01/07 Andreas Benton MD 45-7a56-mb3 /2013 [facility] 6-1006o236v fdf Pachie S. MEDS 6urs78cz-03 01/30 01/30 Andreas Benton MD 2e-4466-900 /2013 [facility] [id number] 1f5 Pachie S. MEDS 94n0t906-n7 01/30 01/30 Andreas Benton, 7d-7r63-613 /2013 [facility] 3-942137i3h 38b Pachie S. MEDS qg32h22a-q5 01/30 01/30 Andreas Benton MD f9-4216-a6b /2013 [facility] c-8sgub94ji b69 Pachie S. MEDS 7r249c35-18 01/30 01/30 Andreas Benton MD 6b-4868-[place] /2013 [facility] 9-v1h52ym24 bd3 Pachie S. MEDS yb35c275-34 01/30 01/30 Andreas Benton MD 62-97f8-gi8 /2013 [facility] 9-71w5q4zv3 a51 Pachie S. MEDS 6r2l41l9-98 01/30 01/30 Andreas Benton MD 99-81s7-c63 /2013 [facility] 5-2w9g7325p 7f3 Pachie S. MEDS 23509r0z-44 01/30 01/30 Andreas Benton MD b2-3nb6-r10 /2013 [facility] [id number] da4 Pachie S. MEDS ju496qnn-hk 01/30 01/30 Andreas Benton MD a2-4ecb-984 /2013 [facility] d-[id number] 059 Pachie S. MEDS 61624i66-07 01/30 01/30 Andreas Benton MD c1-4u66-lta /2013 [facility] 1-[id number] 63d Pachie S. MEDS 76r87q03-a8 01/30 01/30 Andreas Benton MD 5a-4689-b70 /2013 [facility] c-0e91be4vu 452 Pachie S. MEDS 405l816d-vv 01/30 01/30 Andreas Benton MD d3-4506-9c /2013 [facility] b-6tb50vlb7 6f1 Pachie S. MEDS 2k12afu2-i7 01/30 01/30 Andreas Benton MD d9-4dfc-b7e /2013 [facility] [id number] 274 Pachie S. MEDS 93yd63bb-s7 01/30 01/30 Andreas Benton, 7b-6t88-l3e /2013 [facility] a-j066sacm8 e0c Pachie S. MEDS nr7g571z-uj 01/30 01/30 Andreas Benton, bf-6w6h-042 /2013 [facility] e-[id number] 0ad Pachie S. MEDS 526xp658-x1 01/30 01/30 Andreas Benton, 9a-15j1-b67 /2013 [facility] a-[id number] 89f Pachie S. MEDS [id number] 01/30 01/30 Andreas Benton MD 01-453a-933 /2013 [facility] 1-859up0t4l c6e Pachie S. MEDS 73em28n7-4s 01/30 01/30 Andreas Benton MD b1-414f-8a7 /2013 [facility] 9-j717cg5l5 1ce Pachie S. MEDS [id number] 01/30 01/30 Andreas Benton MD b7-4ek8-p28 /2013 [facility] 1-2hx2n8hzs b90 Pachie S. MEDS 449247f2-3j 01/30 01/30 Andreas Benton MD 05-49bb-83a /2013 [facility] e-[id number] 98d Pachie S. MEDS [id number]-a7 01/30 01/30 Andreas Benton MD 90-1n02-0z3 /2013 [facility] b-[id number] 67b Pachie S. MEDS ii7i772i-3t 01/30 01/30 Andreas Benton MD 8d-497f-8b6 /2013 [facility] 3-588t8t8jj a29 Pachie S. MEDS [id number] 01/30 01/30 Andreas Benton MD [id number] /2013 [facility] 1-[id number] e49 Pachie S. MEDS [id number] 01/30 01/30 Andreas Benton MD [id number] /2013 [facility] f-[id number] e71 Pachie S. MEDS [id number] 01/30 01/30 Andreas Benton MD [id number] /2013 [facility] a-[id number] c0c Pachie S. MEDS [id number] 01/30 01/30 Andreas Benton MD da-[id number] /2013 [facility] [id number] 0d4 Pachie S. MEDS [id number] 01/30 01/30 Andreas Benton MD [id number]-[id number] /2013 [facility] [id number] 24f Pachie S[employer] MEDS [id number] 01/30 01/30 Andreas Benton MD dc-454b-af0 /2013 [facility] e-[id number] 296 Pachie S. MEDS [id number] 01/30 01/30 Andreas Benton MD [id number] /2013 [facility] f-[id number] 7e7 Pachie S. MEDS [id number] 01/30 01/30 Andreas Benton MD ac-[id number]-u28 /2013 [facility] b-[id number] 806 Pachie S. MEDS [id number] 01/30 01/30 Andreas Benton MD 56-40bf-9e6 /2013 [facility] d-[id number] 0a7 Pachie S. MEDS [id number] 01/30 01/30 Andreas Benton MD [id number]-03o6-m28 /2013 [facility] c-[id number] 847 Pachie S. Unknown [id number] 02/04 02/04 Andreas Benton MD 57-4128-[id number] /2013 [facility] 4-[id number] 46b Pachie S. Unknown [id number] 02/04 02/04 Andreas Benton MD [id number]-4631-b87 /2013 [facility] e-[id number] a97 Pachie S. Unknown [id number] 02/04 02/04 Andreas Benton MD bc-4bde-89b /2013 [facility] a-[id number] 2e1 Pachie S. Unknown [id number] 02/04 02/04 Andreas Benton MD 6d-[id number] /2013 [facility] e-[id number] 958 Pachie S. Unknown [id number] 02/04 02/04 Andreas Benton MD 75-4851-bcb /2013 [facility] e-[id number] 522 Pachie S. Unknown [id number] 02/04 02/04 Andreas Benton MD [id number] /2013 [facility] [id number] f93 Pachie S. Unknown [id number] 02/04 02/04 Andreas Benton MD 25-3uv9-yro /2013 [facility] [id number] df4 Pachie S. Unknown [id number] 02/04 02/04 Andreas Benton MD 07-5km2-i7w /2013 [facility] [id number] 3cd Pachie S. Unknown [id number] 02/04 02/04 Andreas Benton MD d9-4295-a3c /2013 [facility] [id number] b13 Pachie S. Unknown [id number] 02/04 02/04 Andreas Benton MD 47-409e-a12 /2013 [facility] e-[id number] d1f Pachie S. Unknown [id number] 02/04 02/04 Andreas Benton MD 6b-[id number] /2013 [facility] b-[id number] 216 Pachie S. Unknown [id number] 02/04 02/04 Andreas Benton MD 3b-37d9-v2w /2013 [facility] 2-[id number] 01e Pachie S. Unknown [id number] 02/04 02/04 Andreas Benton MD 8a-493d-a80 /2013 [facility] 5-[id number] 220 Pachie S. Unknown [id number] 02/04 02/04 Andreas Benton MD 0a-[id number] /2013 [facility] [id number] 44d Pachie S. Unknown [id number] 02/04 02/04 Andreas Benton MD [id number]-975 /2013 [facility] [id number] c2d Pachie S. Unknown [id number] 02/04 02/04 Andreas Benton MD e2-4696-bfc /2013 [facility] c-[id number] f95 Pachie S. Unknown [id number] 02/04 02/04 Andreas Benton MD 96-49cd-9d6 /2013 [facility] d-[id number] ce9 Pachie S. Unknown [id number] 02/04 02/04 Andreas Benton MD b1-407e-b97 /2013 [facility] 8-[id number] 1b3 Pachie S. Unknown [id number] 02/04 02/04 Andreas Benton MD d6-410f-8c0 /2013 [facility] [id number] 7cd Pachie S. Unknown [id number] 02/04 02/04 Andreas Benton MD [id number]-[id number] /2013 [facility] [id number] 624 Pachie S. Unknown [id number] 02/04 02/04 Andreas Benton MD da-476b-921 /2013 [facility] 8-[id number] 264 Pachie S. Unknown [id number] 02/04 02/04 Andreas Benton MD d7-44de-91f /2013 [facility] d-[id number] d3c Pachie S. Unknown [id number] 02/04 02/04 Andreas Benton MD fb-66r4-466 /2013 [facility] 4-[id number] b69 Pachie S. Unknown [id number] 02/04 02/04 Andreas Benton MD 7f-4411-9d2 /2013 [facility] c-[id number] e7a Pachie S. Unknown [id number] 02/04 02/04 Andreas Benton MD a5-08q5-83l /2013 [facility] [id number] 4b4 Pachie S. Unknown [id number] 02/04 02/04 Andreas Benton MD 96-82v9-84j /2013 [facility] [id number] 929 Pachie S. Unknown [id number] 02/04 02/04 Andreas Benton MD 84-8ny7-wm5 /2013 [facility] [facility] 8-h20199r1f 40f Pachie S. Unknown 6cw6d7n0-8w 02/04 02/04 Andreas Benton MD 92-417c-98b /2013 [facility] 9-[id number] e00 Pachie S. Unknown [id number]-16 02/04 02/04 Andreas Benton MD d9-7nl3-421 /2013 [facility] 2-q6y7a0lqj 7a3 Pachie S. Unknown [id number] 02/04 02/04 Andreas Benton MD 77-0vu9-r44 /2013 [facility] 2-3w6k76ex0 9eb Pachie S. Unknown 5or8s82q-0g 02/04 02/04 Andreas Benton MD fb-6r38-9yo /2013 [facility] 7-489p6o112 527 Pachie S. Unknown 3zf7y0cp-98 02/07 02/07 Andreas Benton MD 92-23f2-cdi /2013 [facility] 0-67l38136m d2a Pachie S. Unknown [id number] 02/07 02/07 Andreas Benton MD 04-18g7-lf6 /2013 [facility] 2-8za943nqd bc4 Pachie S. Unknown [id number] 02/07 02/07 Andreas Benton MD a3-4025-808 /2013 [facility] 1-ih5j1g98p 49a Pachie S. Unknown [id number] 02/07 02/07 Andreas Benton MD ee-4acf-992 /2013 [facility] a-abw04270t 798 P[place]ie S. Unknown [id number]-jc 02/07 02/07 Andreas Benton, db-4956-a4f /2013 [facility] 2-own288ml9 ef0 Pachie S. Unknown [id number]-2e 02/07 02/07 Andreas Benton, ad-8d1c-628 /2013 [facility] 6-0521m55gd 1c5 P[place]ie S. Unknown q6kwm0af-88 02/07 02/07 Andreas Benton, c4-9e16-to8 /2013 [facility] 5-7pmpd3655 3df Pachie S. Unknown [id number] 02/07 02/07 Andreas Benton, 21-4755-ac3 /2013 [facility] 7-9e5r0069y 5f1 Pachie S. Unknown [id number] 02/07 02/07 Andreas Benton, 6d-6u4b-56z /2013 [facility] 0-934h340ub 92f Pachie S. Unknown [id number]-j0 02/07 02/07 Andreas Benton, f2-4696-a8b /2013 [facility] e-72wthw748 74c Pachie S. Unknown [id number]-s2 02/07 02/07 Andreas Benton MD 70-4143-a7f /2013 [facility] f-k264ot9h8 c31 Pachie S. Unknown 614qb7h1-2q 02/07 02/07 Andreas Benton MD f2-59t6-36w /2013 [facility] [id number] 9ba Pachie S. Unknown rq7hm34k-mt 02/07 02/07 Andreas Benton MD 3f-2y67-17t /2013 [facility] 1-38p95zo6a c0d Pachie S. Unknown [id number]-2f 02/07 02/07 Andreas Benton MD 12-46cb-84a /2013 [facility] 5-29i17jp71 76f Pachie S. Unknown u7hio31i-0s 02/07 02/07 Andreas Benton MD 47-48ec-b2a /2013 [facility] 3-9g9e310o5 f41 Pachie S. Unknown [id number]-v8 02/07 02/07 Andreas Benton MD b3-4156-b95 /2013 [facility] a-1hy1c1d7q 1c0 P[place]ie S. Unknown 40f27qj0-1j 02/07 02/07 Andreas Benton MD 3c-4aab-b9f /2013 [facility] 0-35h45d0wq 792 Pachie S. Unknown [id number] 02/07 02/07 Andreas Benton MD d4-432e-a80 /2013 [facility] e-5105jy7u9 be9 P[place]ie S. Unknown [id number]-nf 02/07 02/07 Andreas Benton MD 7a-2h4k-o32 /2013 [facility] c-708dk0q93 eb8 P[place]ie S. Unknown [id number] 02/07 02/07 Andreas Benton MD e1-93j9-447 /2013 [facility] a-[id number] 458 Pachie S. Unknown [id number]-qp 02/07 02/07 Andreas Benton MD 42-43ed-b39 /2013 [facility] e-d36glbp62 794 P[place] S. Unknown [id number]-z2 02/07 02/07 Andreas Benton MD 35-4952-97c /2013 [facility] 9-an4j6u087 bf6 Pachie S. Unknown [id number]-6q 02/07 02/07 Andreas Benton MD 85-411c-a4e /2013 [facility] 9-v45208q26 44f Pachie S. Unknown [id number]-j7 02/07 02/07 Andreas Benton MD c2-4630-ae7 /2013 [facility] 3-5z24f3w79 85f Pachie S. Unknown [id number] 02/07 02/07 Andreas Benton MD eb-479c-bff /2013 [facility] f-[id number] 217 Pachie S. Unknown cw9xu8qo-65 02/07 02/07 Andreas Benton MD 7f-404d-93c /2013 [facility] d-[id number] 27e P[place]ie S. Unknown 3j08kz8w-ed 02/07 02/07 Andreas Benton MD 00-4007-82e /2013 [facility] 5-0fv0df70s 614 [place] S. Unknown [id number]-f4 02/07 02/07 Andreas Benton MD 87-43cf-bf4 /2013 [facility] a-27k56ye25 8be P[place]ie S. Unknown [id number] 02/07 02/07 Andreas Benton MD 2b-487c-a46 /2013 [facility] 0-[id number] c87 P[place]ie S. Unknown 4go944ho-cu 02/07 02/07 Andreas Benton MD df-448e-8b7 /2013 [facility] [id number] 39b P[place]ie S. Unknown 457kl4n9-qc 02/07 02/07 Andreas Benton MD fb-8o29-mia /2013 [facility] 5-39bv5di97 87d Pachie S. DRY SOCKET [id number] 02/12 02/12 Andreas Benton MD 49-8g9a-c04 /2013 [facility] 9-w4v9z48j2 83a P[place]ie S. DRY SOCK[employer] q1m077ct-72 02/12 02/12 Andreas Benton MD 87-4396-8b9 [facility] 2-38l9fo827 d1f Pachie S. DRY SOCKET [id number] 02/12 02/12 Andreas Benton MD a0-4adb-88a /2013 [facility] b-328z302oz efd Pachie S. DRY SOCKET 6x3dv6bv-31 02/12 02/12 Andreas Benton MD 40-9n58-kdj /2013 [facility] d-[id number] 1db Pachie S. DRY SOCKET s90b58sx-5q 02/12 02/12 Andreas Benton MD b2-4271-8eb /2013 [facility] 3-we5901pz4 7de Pachie S. DRY SOCKET r838s248-58 02/12 02/12 Andreas Benton MD 84-439b-8d9 /2013 [facility] 6-c3m80f1rq 3eb P[place]ie S. DRY SOCKET 0s7p67o7-50 02/12 02/12 Andreas Benton MD cf-4720-a63 /2013 [facility] d-[id number] c50 Pachie S. DRY SOCKET 4v35d8p5-6e 02/12 02/12 Andreas Benton MD 3f-8r37-vq4 /2013 [facility] 7-oq9026dcc 974 P[place]ie S. DRY SOCKET [id number]-zn 02/12 02/12 Andreas Benton MD 8d-37y9-859 /2013 [facility] d-r5989ee0m 8e6 P[place]ie S. DRY SOCK[employer] l2q48w06-3j 02/12 02/12 Andreas Benton MD 6c-492a-bb5 /2013 [facility] f-05977bu1g 810 P[place]ie S. DRY SOCKET 761cc70c-13 02/12 02/12 Andreas Benton MD 22-1jv0-se0 /2013 [facility] f-[id number] dd1 P[place]ie S. DRY SOCK[employer] on9wb604-y8 02/12 02/12 Andreas Benton MD 11-09g2-nht /2013 [facility] f-[id number] e18 Pachie S. DRY SOCKET [id number]-t8 02/12 02/12 Andreas Benton MD 5d-4137-8ab /2013 [facility] e-[id number] 923 [place]ie S. DRY SOCKET qk04sr05-91 02/12 02/12 Andreas Benton MD e1-3b43-sl0 /2013 [facility] c-[id number] 852 P[place]ie S. DRY SOCKET sc42116z-52 02/12 02/12 Andreas Benton MD c1-88v9-39x /2013 [facility] d-[id number] b0e P[place]ie S. DRY SOCKET 71ug481a-31 02/12 02/12 Andreas Benton MD 36-43ad-8bf /2013 [facility] e-[id number] 89d Pachie S. DRY SOCKET 099td7h5-df 02/12 02/12 Andreas Benton MD fc-8rx3-jm8 /2013 [facility] 5-408103tj6 80c P[place]ie S. DRY SOCKET emtj52z5-re 02/12 02/12 Andreas Benton MD 6a-438d-a44 /2013 [facility] 2-wm38j48ng 1f6 P[place]ie S. DRY SOCK[employer] 0csn7q56-47 02/12 02/12 Andreas Benton MD d6-409d-bf9 /2013 [facility] 9-531r7267w a6d Pachie S. DRY SOCK[employer] [id number] 02/12 02/12 Andreas Benton MD 22-44dd-8c9 [facility] 5-dxy3pg926 8ce Pachie S. DRY SOCKET 861fjf86-00 02/12 02/12 Andreas Benton MD 32-3n6y-813 /2013 [facility] 5-85w28x603 5cc Pachie S. DRY SOCKET [id number] 02/12 02/12 Andreas Benton MD 6a-4497-888 /2013 [facility] 4-531qqqm27 d33 Pachie S. DRY SOCKET 62v3458z-71 02/12 02/12 Andreas Benton MD c3-4145-b03 /2013 [facility] c-[id number] a48 P[place]ie S. DRY SOCKET 81rm47rn-66 02/12 02/12 Andreas Benton MD 2e-4441-906 /2013 [facility] 7-a662l77b6 2f1 Pachie S. DRY SOCKET 278g8ic3-3i 02/12 02/12 Andreas Benton MD 28-48ae-be1 /2013 [facility] 5-ha300893n 1e4 P[place]ie S. DRY SOCK[employer] u9182n8p-70 02/12 02/12 Andreas Benton MD 08-9yp4-sgy /2013 [facility] [id number] e30 Pachie S. DRY SOCKET l7587d1m-j2 02/12 02/12 Andreas Benton MD be-3y02-h06 /2013 [facility] 6-380518s52 629 [place]ie S. DRY SOCKET [id number]-ij 02/12 02/12 Andreas Benton MD a5-4753-a38 /2013 [facility] a-lxqa6e9mw 9f2 P[place]ie S. DRY SOCK[employer] t3t4v7e7-xi 02/12 02/12 Andreas Benton MD 4a-4070-98c /2013 [facility] 8-03y06ws5o 2b5 P[place]ie S. DRY SOCK[employer] h93a6251-88 02/12 02/12 Andreas Benton MD 4e-4490-b77 [facility] b-780l0484g a54 P[place]ie S. DRY SOCKET u560v036-14 02/12 02/12 Andreas Benton MD 54-4ecf-9e1 /2013 [facility] 4-o139gz630 621 P[place]ie S. Unknown [id number] 03/06 03/06 Andreas Benton MD f6-4104-8b9 [facility] d-y90i4y3z4 ee9 P[place] S. Unknown 2s112p64-08 03/06 03/06 Andreas Benton MD 22-69y5-h3t [facility] 6-[id number] eef Pachie S. Unknown ro028tz0-34 03/06 03/06 Andreas Benton MD 99-4637-b24 [facility] d-9c7b0390t 73f Pachie S. Unknown 2lx65xf3-0k 03/06 03/06 Andreas Benton MD 71-45dc-a74 [facility] 4-bkwy10y5x 906 P[place] S. Unknown wqr4dkyx-p1 03/06 03/06 Andreas Benton MD 70-6m73-jn0 [facility] 8-967uc65jy f69 Pachie S. Unknown wg03r30x-50 03/06 03/06 Andreas Benton MD 42-4951-b4e [facility] c-0289p8byu 790 Pachie S. Unknown [id number]-1t 03/06 03/06 Andreas Benton, 86-4ccc-b80 /2013 [facility] f-6rkly2zc5 226 P[place]ie S. Unknown vm83y614-9g 03/06 03/06 Andreas Benton, fd-32d2-q9t /2013 [facility] d-[id number] 755 Pachie S. Unknown [id number]-43 03/06 03/06 Andreas Benton, b2-48aa-8b8 /2013 [facility] b-5x7z48efe 325 P[place]ie S. Unknown f6a6p1q4-r9 03/06 03/06 Andreas Benton, d7-65j6-c69 /2013 [facility] e-2xp000v35 8a5 P[place]ie S. Unknown t24x69y5-23 03/06 03/06 Andreas Benton, 2c-4301-809 /2013 [facility] 2-k702tv92r 22b P[place]ie S. Unknown 6r2271e3-39 03/06 03/06 Andreas Benton MD dc-5jl0-38q /2013 [facility] [id number] 4be P[place] S. Unknown [id number] 03/06 03/06 Andreas Benton MD f8-428b-aa5 [facility] 2-4m20u0u71 2e5 P[place] S. Unknown [id number]-d6 03/06 03/06 Andreas Benton MD d8-5d51-3ck /2013 [facility] d-x3ky83v0q 8e8 [place] S. Unknown s3yo0952-h4 03/06 03/06 Andreas Benton MD 67-75o8-rp8 [facility] 6-50me8n472 90e P[place]ie S. Unknown n55z7ex2-b4 03/06 03/06 Andreas Benton MD af-8o6q-5n6 [facility] c-485cd2b90 a9d Pachie S. Unknown [id number] 03/06 03/06 Andreas Benton MD b8-4bbe-8d2 [facility] c-5709423g8 621 P[place]ie S. Unknown [id number]-lf 03/06 03/06 Andreas Benton MD 09-1y9s-h7a /2013 [facility] 2-14589fi77 798 P[place]ie S. Unknown [id number] 03/06 03/06 Andreas Benton MD 3f-424a-b13 /2013 [facility] a-[id number] 5f3 P[place]ie S. Unknown q4yltglx-33 03/06 03/06 Andreas Benton MD 72-8v0g-r7f /2013 [facility] d-[id number] c57 P[place]ie S. Unknown l13xko6r-10 03/06 03/06 Andreas Benton MD 5c-49cc-83a /2013 [facility] [id number] 168 P[place]ie S. Unknown [id number]-qx 03/06 03/06 Andreas Benton MD 5f-0x40-l75 /2013 [facility] 6-z63w411r6 0c5 P[place] S. Unknown [id number] 03/06 03/06 Andreas Benton MD 72-429a-82a /2013 [facility] b-[id number] 142 P[place] S. Unknown 704m5l53-xu 03/06 03/06 Andreas Benton MD ed-6v25-40k /2013 [facility] 3-38ht44vit 069 [place] S. Unknown 9y2vlu63-8o 03/06 03/06 Andreas Benton MD 97-44ad-8cc /2013 [facility] a-482skhdp6 c81 P[place] S. Unknown d045152q-54 03/06 03/06 Andreas Benton MD eb-5v40-jz8 /2013 [facility] 2-7iw8hba61 bd3 P[place]ie S. meds 0e02493j-2l 03/17 03/17 Andreas Benton MD 2f-7t1e-434 /2013 [facility] f-39dl66gr7 2f5 P[place]ie S. meds 90lgy041-47 03/17 03/17 Andreas Benton MD 72-17l7-mk8 /2013 [facility] 6-84s6ear06 293 P[place]ie S. meds e625j56k-36 03/17 03/17 Andreas Benton MD 4c-2u7a-fs3 /2013 [facility] 4-[id number] b79 P[place]ie S. meds a8t3grm5-37 03/17 03/17 Andreas Benton MD 0d-4705-9c3 /2013 [facility] f-[id number] fa4 P[place] S. meds q385pu81-58 03/17 03/17 Andreas Benton MD e6-426d-b06 /2013 [facility] 8-xc584k78n b95 P[place] S. meds 0018i375-38 03/17 03/17 Andreas Benton MD 9c-7o29-79g /2013 [facility] e-c04ppyfl3 462 Pachie S. meds 585v5cv6-8p 03/17 03/17 Andreas Benton MD c0-4580-b8c /2013 [facility] 4-12w6b5oox 8a1 P[place] S. meds 6517rz4j-36 03/17 03/17 Andreas Benton MD df-4613-a8b /2013 [facility] 0-4k58qk659 7c8 P[place] S. meds f83iuk84-m4 03/17 03/17 Andreas Benton MD 29-2rg2-iw4 /2013 [facility] b-itar97nmo 6df P[place] S. meds [id number] 03/17 03/17 Andreas Benton MD 2a-6o44-2fg /2013 [facility] d-xck9biws5 cd9 P[place] S. meds 1dbua7m1-zp 03/17 03/17 Andreas Benton MD 11-4515-jennifer /2013 [facility] 4-2pdd8px57 2dd Pachie S. meds c20815g0-57 03/17 03/17 Andreas Benton MD 5f-4afe-baf /2013 [facility] d-4zuzf0n2w 453 Pachie S. meds 61249fbp-89 03/17 03/17 Andreas Benton MD 5c-439e-968 /2013 [facility] 3-3ql9i6680 897 P[place]ie S. meds xoy33u8f-ub 03/17 03/17 Andreas Benton MD bf-3d69-i73 /2013 [facility] 5-56v3722yq 512 P[place]ie S. meds 038c23mv-l4 03/17 03/17 Andreas Benton MD 95-5j3n-61i /2013 [facility] e-6308cftp8 c0b P[place]ie S. meds 287e06in-q9 03/17 03/17 Andreas Benton, af-418b-800 /2013 [facility] 0-q697351o4 f55 [place] S. meds nkh2290h-fq 03/17 03/17 Andreas Benton MD f7-4542-88f /2013 [facility] f-u12c5288m e67 P[place] S. meds 4439w3wh-0i 03/17 03/17 Andreas Benton MD 55-47bc-b8d /2013 [facility] 4-6b7u166av d1d P[place]ie S. meds n69c361t-57 03/17 03/17 Andreas Benton MD 02-5y44-9hx /2013 [facility] 7-9285wa231 d2d P[place] S. meds rk77pldx-ns 03/17 03/17 Andreas Benton MD 19-63h9-l92 /2013 [facility] 4-[id number] 659 [place] S. meds wwg2rq1w-5l 03/17 03/17 Andreas Benton MD 1e-470e-b95 /2013 [facility] [id number] 665 [place]ie S. meds [id number] 03/17 03/17 Andreas Benton MD b6-45h9-6i0 /2013 [facility] 9-1gar7576g 544 P[place] S. meds hfjq7eb2-ne 03/17 03/17 Andreas Benton MD aa-4893-a04 /2013 [facility] b-bq6c619n4 091 P[place] S. meds e07hfg19-99 03/17 03/17 Andreas Benton MD d0-4303-aef /2013 [facility] 8-7qvc51u08 8b0 [place] S. meds 1se40i00-vg 03/17 03/17 Andreas Benton MD bf-8p79-8gz /2013 [facility] 6-zhzs1wavs d63 P[place] S. meds ldz89ov8-pd 03/17 03/17 Andreas Benton MD 6f-4820-8c4 /2013 [facility] 8-74hp8308h 6a8 P[place] S. Unknown 7sxil3d7-wo 04/08 04/08 Andreas Benton MD af-4051-8ab /2013 [facility] 1-774505em0 96f P[place]ie S. Unknown q11v4145-7n 04/08 04/08 Andreas Benton MD da-6we6-r2b /2013 [facility] 3-42y74ii60 f96 P[place] S. Unknown l347k26i-98 04/08 04/08 Andreas Benton MD 82-4903-99c /2013 [facility] 3-rj362098e cea P[place] S. Unknown [id number]-yd 04/08 04/08 Andreas Benton MD 64-41eb-879 /2013 [facility] 3-8s47s4sl1 2b8 P[place] S. Unknown tq0lusj3-3t 04/08 04/08 Andreas Benton MD 0a-8ym5-83y /2013 [facility] [id number] e9a P[place] S. Unknown 05kr69ih-53 04/08 04/08 Andreas Benton MD 7f-14l5-1k1 /2013 [facility] [id number] 6e5 P[place] S. Unknown [id number]-v8 04/08 04/08 Andreas Benton MD fd-40fa-aff /2013 [facility] 0-f9d4013o1 e38 P[place] S. Unknown rh29458n-17 04/08 04/08 Andreas Benton MD 54-4897-93e /2013 [facility] d-1p4598s3b 13a P[place] S. Unknown [id number] 04/08 04/08 Andreas Benton MD 56-409d-973 /2013 [facility] f-xqj1ot4xl 4f1 P[place] S. Unknown 3q8ai98c-83 04/08 04/08 Andreas Benton MD 81-4801-ad3 /2013 [facility] f-e31vy55ad 848 P[place] S. Unknown 7892h3hr-79 04/08 04/08 Andreas Benton MD cb-480b-836 /2013 [facility] 8-bhn7sp899 d28 P[place] S. Unknown 232oc3mx-36 04/08 04/08 Andreas Benton MD 4a-40ee-a01 /2013 [facility] 9-7ex053p89 82a P[place] S. Unknown [id number] 04/08 04/08 Andreas Benton MD ed-8l54-u63 /2013 [facility] [id number] 0b3 P[place] S. Unknown [id number]-78 04/08 04/08 Andreas Benton MD bc-44cf-9a6 /2013 [facility] f-[id number] 2c7 P[place] S. Unknown [id number] 04/08 04/08 Andreas Benton MD a1-1g50-32w /2013 [facility] 7-17ry3e64n 945 P[place] S. Unknown 7o5j95lw-bb 04/08 04/08 Andreas Benton MD 6c-2i2c-t14 /2013 [facility] d-4447f8h5v 3e8 [place] S. Unknown 6477k17q-c9 04/08 04/08 Andreas Benton MD a3-4870-a68 /2013 [facility] b-98a1809uh 6fd P[place] S. Unknown q50f2711-02 04/08 04/08 Andreas Benton MD 9d-35j4-5ph /2013 [facility] a-88s92yb97 bc3 [place] S. Unknown yc72m011-z2 04/08 04/08 Andreas Benton MD d9-405e-bfa /2013 [facility] 2-e1vcbm3gc dd8 P[place] S. Unknown 89fj598s-2o 04/08 04/08 Andreas Benton MD 36-401d-a84 /2013 [facility] 0-[id number] d41 [place] S. Unknown [id number] 04/08 04/08 Andreas Benton MD a4-4265-a4d /2013 [facility] 8-elnn43q00 f7c P[place] S. Unknown y705ojn1-ky 04/08 04/08 Andreas Benton MD db-4835-94e /2013 [facility] e-7h27ei7n5 c76 P[place] S. Unknown 5893w40n-w1 04/08 04/08 Andreas Benton MD 28-496a-943 /2013 [facility] 3-yr6t05win 0f3 P[place] S. Unknown [id number]-n6 04/08 04/08 Andreas Benton MD 8b-48w3-t8c /2013 [facility] 3-2bs189ddh 5c5 P[place] S. Unknown onj76y83-00 05/13 05/13 Andreas Benton MD 5e-4813-8e7 /2013 [facility] d-[id number] 224 [place] S. Unknown 48233r6c-2x 05/13 05/13 Andreas Benton MD ad-40db-bf4 /2013 [facility] c-8eyc6ts05 b8c P[place] S. Unknown [id number]-b8 05/13 05/13 Andreas Benton MD ff-7a03-993 /2013 [facility] d-5l111mf9q 5de P[place] S. Unknown 0la881ec-4y 05/13 05/13 Andreas Benton MD ed-4175-91b /2013 [facility] 9-x1h32cifn 776 P[place] S. Unknown 1bo4w5hf-gr 05/13 05/13 Andreas Benton MD d6-451f-945 /2013 [facility] 1-1o8u56rsd f4f P[place] S. Unknown v7x6ny4n-d2 05/13 05/13 Andreas Benton MD 6c-1h71-pef /2013 [facility] 9-vlb0xod35 e66 P[place] S. Unknown q3m28x23-t2 05/13 05/13 Andreas Benton MD aa-48fc-9c4 /2013 [facility] 8-8j5rq46z8 b55 P[place] S. Unknown 5108caef-b2 05/13 05/13 Anderas Benton MD a3-7n80-g4v /2013 [facility] 0-16251u5fd 079 [place] S. Unknown 9w16082j-2g 05/13 05/13 Andreas Benton MD 7c-4cca-8b7 /2013 [facility] 5-8os3q91fk 644 P[place] S. Unknown [id number] 05/13 05/13 Andreas Benton MD 6d-481f-8dd /2013 [facility] f-88694131i 3b9 P[place] S. Unknown [id number]-l8 05/13 05/13 Andreas Benton MD e7-44ce-aab /2013 [facility] c-5af6t2i42 ff8 P[place] S. Unknown r922v725-t5 05/13 05/13 Andreas Benton MD 1e-4503-853 [facility] 8-t82923l7e 0cd Pachie S. Unknown 75yv8041-82 05/13 05/13 Andreas Benton MD 62-1k78-69p [facility] 8-86375o739 dfd Pachie S. Unknown [id number]-bb 05/13 05/13 Andreas Benton MD 4d-8gz2-h11 [facility] 5-10b3mr753 5d4 P[place] S. Unknown [id number] 05/13 05/13 Andreas Benton MD f6-459c-a39 /2013 [facility] 6-3232478u5 42e Pachie S. Unknown 3fyt2657-64 05/13 05/13 Andreas Benton MD 5d-4219-b93 [facility] 4-65ae4a309 685 P[place] S. Unknown 28i196ve-n5 05/13 05/13 Andreas Benton MD af-1gf5-0mz [facility] 4-16en0v6d5 94b P[place] S. Unknown 95p8ku4b-0p 05/13 05/13 Andreas Benton MD c7-0i38-0a4 /2013 [facility] 9-13ua8l2ey abf P[place] S. Unknown [id number] 05/13 05/13 Andreas Benton MD 09-447f-b51 /2013 [facility] 5-2703gt653 4d5 P[place] S. Unknown [id number] 05/13 05/13 Andreas Benton MD c7-4aff-894 /2013 [facility] b-3f924w6m0 1e3 P[place] S. Unknown [id number] 05/13 05/13 Andreas Benton MD ef-42ed-b2e /2013 [facility] 0-m40w223x9 8f3 P[place] S. Unknown 1pv3k80u-[id number] 05/13 05/13 Andreas Benton MD d9-4966-95b /2013 [facility] a-[id number] 6af Pachie S. Unknown [id number] 05/13 05/13 Andreas Benton MD 55-14u2-h29 /2013 [facility] [id number] 961 P[place]ie S. Refill [id number] 05/15 05/15 Andreas Benton MD 26-4056-8f2 [facility] [id number] cef Pachie S. Refill [id number] 05/15 05/15 Andreas Benton MD [id number] /2013 [facility] c-[id number] c37 Pachie S. Refill [id number] 05/15 05/15 Andreas Benton MD c7-4586-ba2 /2013 [facility] [id number] 121 P[place]ie S. Refill [id number] 05/15 05/15 Andreas Benton MD 2d-1c6t-0a2 [facility] 6-[id number] 49e Pachie S. Refill [id number] 05/15 05/15 Andreas Benton MD e9-1zw7-wg1 [facility] [id number] b6d Pachie S. Refill [id number] 05/15 05/15 Andreas Benton MD d8-0o13-881 /2013 [facility] e-[id number] 103 Pachie S. Refill [id number] 05/15 05/15 Andreas Benton MD 46-41fd-8ec /2013 [facility] 7-[id number] 4c7 Pachie S. Refill [id number] 05/15 05/15 Andreas Benton MD 59-482e-97a /2013 [facility] a-[id number] 60b Pachie S. Refill [id number] 05/15 05/15 Andreas Benton MD 7f-476f-8a7 /2013 [facility] c-[id number] 8b5 Pachie S. Refill [id number] 05/15 05/15 Andreas Benton MD 40-4708-82c /2013 [facility] [id number] f4b Pachie S. Refill [id number] 05/15 05/15 Andreas Benton MD b9-56h7-4jo /2013 [facility] 6-[id number] 951 Pachie S. Refill [id number] 05/15 05/15 Andreas Benton MD 8a-4554-86d /2013 [facility] [id number] 000 Pachie S. Refill [id number] 05/15 05/15 Andreas Benton MD 26-5o2t-2t0 /2013 [facility] [id number] 080 Pachie S. Refill [id number] 05/15 05/15 Andreas Benton MD 57-4447-ba2 /2013 [facility] c-[id number] 826 Pachie S. Refill [id number] 05/15 05/15 Andreas Benton MD 8d-6h8l-rl0 [facility] [id number] 9be Pachie S. Refill [id number] 05/15 05/15 Andreas Benton MD 06-42eb-bcb /2013 [facility] 6-[id number] e6d Pachie S. Refill [id number] 05/15 05/15 Andreas Benton MD 4c-82q2-i62 /2013 [facility] [id number] 263 Pachie S. Refill [id number] 05/15 05/15 Andreas Benton MD 1c-4201-bd5 /2013 [facility] [id number] ccc Pachie S. Refill [id number]-11 05/15 05/15 Andreas Benton MD 52-9p40-824 /2013 [facility] e-[id number] 390 Pachie S. Refill [id number] 05/15 05/15 Andreas Benton MD fd-8w18-ov0 /2013 [facility] [id number] 5c0 Pachie S. Refill [id number] 05/15 05/15 Andreas Benton MD 98-41ff-aab /2013 [facility] 6-[id number] 64d Pachie S. Refill [id number] 05/15 05/15 Andreas Benton MD 69-86s9-016 /2013 [facility] [id number] 0b8 Pachie S. Unknown [id number] 06/11 06/11 Andreas Benton MD 0f-0q04-jw2 /2013 [facility] 8-[id number] 71e Pachie S. Unknown [id number] 06/11 06/11 Andreas Benton MD af-4261-b84 /2013 [facility] e-[id number] c2e Pachie S. Unknown [id number] 06/11 06/11 Andreas Benton MD 0f-4gh6-48g /2013 [facility] b-[id number] f4b Pachie S. Unknown [id number] 06/11 06/11 Andreas Benton MD 72-4959-833 /2013 [facility] c-[id number] 611 Pachie S. Unknown [id number] 06/11 06/11 Andreas Benton MD ed-4452-933 /2013 [facility] [id number] 935 Pachie S. Unknown [id number] 06/11 06/11 Andreas Benton MD 57-6z1e-135 /2013 [facility] [id number] 9a9 Pachie S. Unknown [id number] 06/11 06/11 Andreas Benton MD 80-4i8u-70t /2013 [facility] f-[id number] 08b Pachie S. Unknown [id number] 06/11 06/11 Andreas Benton MD [id number]-4cac-81d /2013 [facility] 9-[id number] dec Pachie S. Unknown [id number] 06/11 06/11 Andreas Benton MD 12-1r00-d2k /2013 [facility] 3-[id number] 092 Pachie S. Unknown [id number] 06/11 06/11 Andreas Benton MD [id number] /2013 [facility] e-[id number] dcc Pachie S. Unknown [id number] 06/11 06/11 Andreas Benton MD aa-4514-90b /2013 [facility] [id number] 7e7 Pachie S. Unknown [id number] 06/11 06/11 Andreas Benton MD 07-6dq8-4b9 /2013 [facility] [id number] f0d Pachie S. Unknown [id number] 06/11 06/11 Andreas Benton MD 6a-4449-a6a /2013 [facility] [id number] 762 Pachie S. Unknown [id number] 06/11 06/11 Andreas Benton MD ef-431d-a4f /2013 [facility] e-[id number] ccb Pachie S. Unknown [id number] 06/11 06/11 Andreas Benton MD 1e-8r59-lh7 /2013 [facility] 6-78k10v707 1d8 Pachie S. Unknown [id number] 06/11 06/11 Andreas Benton MD e1-42bf-83d /2013 [facility] f-544ut05mh b20 Pachie S. Unknown [id number] 06/11 06/11 Andreas Benton MD 79-4p7j-51u /2013 [facility] 7-e35mfe6mz 650 Pachie S. Unknown [id number] 06/11 06/11 Andreas Benton MD dd-4639-969 /2013 [facility] 1-8l4g23shh bee Pachie S. Unknown [id number]-7v 06/11 06/11 Andreas Benton MD fc-7e4c-z16 /2013 [facility] a-2y518zm66 4f4 Pachie S. Unknown [id number] 06/11 06/11 Andreas Benton MD f3-4yr0-3pz /2013 [facility] 8-[id number] 576 Pachie S. Unknown [id number] 06/11 06/11 Andreas Benton MD 2a-4250-ada /2013 [facility] 4-86s11m8tf 349 Pachie S. add [id number] 07/14 07/14 Andreas Benton MD 96-50s5-867 /2014 [facility] 8-06rva2ati 4d2 Pachie S. add [id number]-7d 07/14 07/14 Andreas Benton MD aa-7v67-zgv /2014 [facility] 3-5004ny02e 62b Pachie S. add [id number]-s1 07/14 07/14 Andreas Benton MD fe-43cf-87a /2014 [facility] [id number] ebd Pachie S. add [id number]-l6 07/14 07/14 Andreas Benton MD e1-4323-a6e /2014 [facility] [id number] c22 Pachie S. add [id number]-83 07/14 07/14 Andreas Benton MD e6-4752-b44 /2014 [facility] e-znmpw24l4 466 Pachie S. add [id number] 07/14 07/14 Andreas Benton MD 09-43z5-0z3 /2014 [facility] 8-b7kuzlv57 f23 Pachie S. add [id number] 07/14 07/14 Andreas Benton MD 08-9h91-98q [facility] 2-ba95x1597 a5c Pachie S. add [id number] 07/14 07/14 Andreas Benton MD da-4674-bad /2014 [facility] 5-007xx647k c41 Pachie S. add 91i42i4u-ua 07/14 07/14 Andreas Betnon MD 0a-481b-921 [facility] 0-s259n0npc 00c Pachie S. add [id number]-08 07/14 07/14 Andreas Benton MD 84-4240-b00 /2014 [facility] e-[id number] 601 P[place]ie S. add cn573k3s-j3 07/14 07/14 Andreas Benton MD 02-431c-93e [facility] e-r6d2356n7 4bd Pachie S. add [id number]-t8 07/14 07/14 Andreas Benton MD 82-4j9m-t12 [facility] b-ky751zs74 nicki Pachie S. add [id number] 07/14 07/14 Andreas Benton MD f6-48ba-bf3 [facility] 3-28y69dsq7 8c0 Pachie S. add [id number] 07/14 07/14 Andreas Benton MD 46-84y0-lkk /2014 [facility] d-850y9u6p4 07a Pachie S. add 8gx11z77-26 07/14 07/14 Andreas Benton MD 2c-97v3-u74 [facility] 0-vj9572yx0 901 Pachie S. add 32tk8z58-29 07/14 07/14 Andreas Benton MD d1-4195-8cb /2014 [facility] 6-346u7x515 c5a Pachie S. add [id number] 07/14 07/14 Andreas Benton MD b1-11d9-b00 /2014 [facility] 4-4n379d2h2 be3 Pachie S. add 548dx174-3i 07/14 07/14 Andreas Benton MD f6-40ca-jennifer /2014 [facility] 5-q4y57q17l 331 Pachie S. add fjtz23gz-u3 07/14 07/14 Andreas Benton MD 46-9p1i-3i0 /2014 [facility] c-lhjb0l660 720 Pachie S. add [id number]-v9 07/14 07/14 Andreas Benton MD e5-0u7b-34n /2014 [facility] d-0mdl75u0z db7 Pachie S. Refill [id number] 08/01 08/01 Andreas Benton MD 47-89g5-0qj /2014 [facility] a-4scln3q4w 0f9 Pachie S. Refill [id number]-56 08/01 08/01 Andreas Benton MD 2e-4fj8-5a1 [facility] 6-cw64tun88 050 P[place]ie S. Refill ou5857t8-3i 08/01 08/01 Andreas Benton MD 47-43de-be6 [facility] e-[id number] 7f8 Pachie S. Refill [id number]-5x 08/01 08/01 Andreas Benton MD 98-2lr1-810 [facility] 1-er98b981t 3f3 Pachie S. Refill 81p8f1o0-x0 08/01 08/01 Andreas Benton MD 59-59k4-r9w /2014 [facility] 1-b3x61s8o2 769 P[place]ie S. Refill [id number]-d8 08/01 08/01 Andreas Benton MD 34-4sv0-a4q /2014 [facility] 1-gwf0on489 f3b Pachie S. Refill [id number]-o8 08/01 08/01 Andreas Benton MD 29-40bd-b52 [facility] a-560697onb 64c Pachie S. Refill 0mz9mpc0-38 08/01 08/01 Andreas Benton MD a0-445f-91f /2014 [facility] 9-6454e0c6b 421 Pachie S. Refill [id number]-25 08/01 08/01 Andreas Benton MD da-4962-ba3 /2014 [facility] d-8537o3c7f 825 P[place]ie S. Refill [id number]-o2 08/01 08/01 Andreas Benton MD ad-5k5d-2u5 /2014 [facility] 6-o8i809vp9 c23 Pachie S. Refill [id number]-b7 08/01 08/01 Andreas Benton MD 29-4cbb-b99 /2014 [facility] 2-3z48fa3da 934 P[place]ie S. Refill dv4eo2tn-t0 08/01 08/01 Andreas Benton MD df-464c-8c4 /2014 [facility] 3-27778j2w8 c45 Pachie S. Refill 614sq600-j5 08/01 08/01 Andreas Benton MD 2e-91g8-kkz /2014 [facility] 8-6h3533z8q bfe Pachie S. Refill [id number] 08/01 08/01 Andreas Benton MD 19-9q05-q45 /2014 [facility] 2-o6952g6mu shirley Pachie S. Refill 237p16kh-1y 08/01 08/01 Andreas Benton MD 37-45y6-809 /2014 [facility] a-[id number] 112 P[place]ie S. Refill 690rc82o-m8 08/01 08/01 Andreas Benton MD 2e-43w1-067 /2014 [facility] 5-8y1h0n882 0b9 Pachie S. Refill [id number] 08/01 08/01 Andreas Benton MD e6-4540-80f /2014 [facility] 0-u82vz04nz 22f Pachie S. Refill [id number]-co 08/01 08/01 Andreas Benton MD 89-6gv8-4qx /2014 [facility] [id number] 10e Pachie S. Refill i2hnw14y-7v 08/01 08/01 Andreas Benton MD 5d-41z7-q32 /2014 [facility] 1-[id number] 960 P[place]ie S. Refill [id number]-62 08/01 08/01 Andreas Benton MD f2-4879-aab /2014 [facility] 4-h788l562z e12 Pachie S. Unknown [id number] 09/05 09/05 Andreas Benton MD 18-9z86-sw1 /2014 [facility] 0-10c07m5sf 237 Pachie S. Unknown [id number] 09/05 09/05 Andreas Benton MD 6f-7r5p-676 /2014 [facility] 9-2h8o9g3o5 ad0 Pachie S. Unknown [id number] 09/05 09/05 Andreas Benton MD af-4405-903 /2014 [facility] 6-[id number] 267 Pachie S. Unknown 6e3ppbo8-76 09/05 09/05 Andreas Benton MD 3d-3fw5-250 /2014 [facility] b-j3s66oq3k c99 Pachie S. Unknown 5i252g8k-59 09/05 09/05 Andreas Benton MD aa-477d-a7e /2014 [facility] f-gw13z85j9 230 Pachie S. Unknown [id number]-h4 09/05 09/05 Andreas Benton MD ed-3s93-w11 /2014 [facility] e-[id number] 32e Pachie S. Unknown [id number]-47 09/05 09/05 Andreas Benton MD bd-4075-a1e /2014 [facility] b-m3459yyoj dda Pachie S. Unknown 78v31c9r-7z 09/05 09/05 Andreas Benton MD 08-4404-a5b /2014 [facility] [id number] 530 P[place]ie S. Unknown [id number] 09/05 09/05 Andreas Benton, 98-4457-bc7 /2014 [facility] e-[id number] 1a9 Pachie S. Unknown [id number]-92 09/05 09/05 Andreas Benton, f1-4eef-8e7 /2014 [facility] e-7ju47ts6m 3e5 Pachie S. Unknown fv67yw44-hi 09/05 09/05 Andreas Benton MD 00-4bbd-bce /2014 [facility] 6-a2d5h10wa 6cd Pachie S. Unknown [id number] 09/05 09/05 Andreas Benton, 2f-9dn3-g4t /2014 [facility] f-745e56ct2 982 P[place]ie S. Unknown sp47099p-41 09/05 09/05 Andreas Benton MD fb-4cfb-b55 /2014 [facility] d-uu53je52m 31f P[place]ie S. Unknown d8wceudw-3d 09/05 09/05 Andreas Benton MD 67-4084-978 /2014 [facility] 4-20l67955k ec4 P[place]ie S. Unknown 95bpo4m4-96 09/05 09/05 Andreas Benton MD 01-493e-a84 /2014 [facility] 5-[id number] 27e Pachie S. Unknown [id number] 09/05 09/05 Andreas Benton MD 49-8q65-6ay /2014 [facility] 2-43tp9i9l3 eb1 Pachie S. Unknown [id number]-27 09/05 09/05 Andreas Benton MD 0a-3z94-cl6 /2014 [facility] 5-1m609egxq 29e Pachie S. Unknown 4o8g988y-00 09/05 09/05 Andreas Benton MD bb-0y42-6v8 /2014 [facility] 8-b3z7kn97f 5a5 P[place]ie S. Unknown [id number] 09/05 09/05 Andreas Benton MD eb-2d80-2je /2014 [facility] 1-23r28x3mk d0e Pachie S. ADD 9rn712t9-gk 11/17 11/17 Andreas Benton MD c6-3z23-q37 /2014 [facility] 4-020713g8k 5f9 Pachie S. ADD [id number]-7a 11/17 11/17 Andreas Benton MD 88-99x0-9o0 /2014 [facility] 9-4952e7219 10f Pachie S. ADD 80p1ov95-59 11/17 11/17 Andreas Benton MD 05-4972-8e8 [facility] 3-3433t8071 0a1 P[place]ie S. ADD i0h5s839-43 11/17 11/17 Andreas Benton MD d7-40fd-946 /2014 [facility] 1-261l25p2r fa9 Pachie S. ADD [id number]-91 11/17 11/17 Andreas Benton MD 16-4246-aa9 [facility] 8-5pyho45d2 7b5 Pachie S. RIA 1411f0gc-06 11/17 11/17 Andreas Benton MD 0c-42ce-b22 /2014 [facility] 1-o7sa92k1o a50 P[place]ie S. ADD m01e90z9-19 11/17 11/17 Andreas Benton MD 93-7qw6-v14 [facility] 8-3746o2004 244 P[place]ie S. ADD ry9hdm34-61 11/17 11/17 Andreas Benton MD b1-4105-9b4 [facility] c-p4336518i df2 Pachie S. ADD w0vep06s-6q 11/17 11/17 Andreas Benton MD 7d-49eb-b44 /2014 [facility] 1-c58517r8m 292 Pachie S. ADD l0496l67-oy 11/17 11/17 Andreas Benton MD db-471d-a38 [facility] 3-483puly6p 18b Pachie S. ADD 7u2w81au-8d 11/17 11/17 Andreas Benton MD 6d-489e-af8 [facility] 9-64657221r 4c3 Pachie S. ADD w652k7ux-x0 11/17 11/17 Andreas Benton MD 7a-4917-a9c /2014 [facility] c-9271s7kd8 77d Pachie S. ADD z8047u41-39 11/17 11/17 Andreas Benton MD cd-498d-9f3 /2014 [facility] 9-z51042p85 27e Pachie S. ADD 49w01d69-0m 11/17 11/17 Andreas Benton MD 6c-459f-958 /2014 [facility] 7-j28yb79p4 02e Pachie S. ADD 19lph388-09 11/17 11/17 Andreas Benton MD 09-20u5-pe7 /2014 [facility] 3-5g52756yd cc2 Pachie S. ADD 5fzlm9h2-4z 11/17 11/17 Andreas Benton MD d2-51n1-882 /2014 [facility] 9-xwk3h3w0v 8da P[place]ie S. ADD 57251e8v-f0 11/17 11/17 Andreas Benton MD 93-454f-a04 /2014 [facility] c-274qna593 b7c Pachie S. ADD [id number] 11/17 11/17 Andreas Benton MD 3a-6s31-80d /2014 [facility] 7-1o224x571 c4e Pachie S. ADD [id number] 11/17 11/17 Andreas Benton MD 70-4942-b36 /2014 [facility] 4-64y606nbu fac Pachie S. Refill 04qqa912-5d 12/16 12/16 Andreas Benton MD 0d-60z5-79f /2014 [facility] 8-[id number] 0ba Pachie S. Refill 348c475m-0m 12/16 12/16 Andreas Benton MD a6-43cc-819 /2014 [facility] 4-81175533h 657 P[place]ie S. Refill 27v5wj52-o7 12/16 12/16 Andreas Benton MD f0-4bff-b7f /2014 [facility] 2-0o3k778l6 734 P[place]ie S. Refill 8333kc7r-76 12/16 12/16 Andreas Benton MD 01-4665-8c0 /2014 [facility] 4-tk44mcv26 b6b Pachie S. Refill 274gw688-f3 12/16 12/16 Andreas Benton MD 0d-40ae-87d /2014 [facility] 7-xwc60swdg 939 P[place]ie S. Refill 3q9k9yc5-a5 12/16 12/16 Andreas Benton MD 6d-97e7-r26 /2014 [facility] 9-06f22v7j7 606 P[place]ie S. Refill 84201e0u-3y 12/16 12/16 Andreas Benton MD 96-486c-9ef /2014 [facility] d-2848561p5 683 P[place]ie S. Refill [id number]-gy 12/16 12/16 Andreas Benton MD e5-4fae-9e6 /2014 [facility] 6-me3z431c2 ad0 P[place]ie S. Refill 95k1v03o-7i 12/16 12/16 Andreas Benton MD f2-38o4-788 /2014 [facility] 3-wc39856hl b70 Pachie S. Refill cm843028-13 12/16 12/16 Andreas Benton MD 25-47af-80a /2014 [facility] 8-896qh391o 4fa Pachie S. Refill 1a82j4q1-44 12/16 12/16 Andreas Benton MD 8d-9m66-29y /2014 [facility] 9-z62b3nm8h e35 Pachie S. Refill 2c5ywahq-35 12/16 12/16 Andreas Benton MD 15-410f-a98 /2014 [facility] e-93d01wa51 a80 P[place]ie S. Refill 95909hkn-8e 12/16 12/16 Andreas Benton MD f4-97k4-8rn /2014 [facility] 1-0b1bo66ac 6c3 Pachie S. Refill [id number] 12/16 12/16 Andreas Benton MD a6-7l0x-6wh /2014 [facility] 1-25393ry90 4fd Pachie S. Refill 211o22xt-10 12/16 12/16 Andreas Benton MD 8d-400a-9f3 /2014 [facility] b-n35i3697k 587 Pachie S. Refill 8603x32z-vm 12/16 12/16 Andreas Benton MD 43-4160-a03 /2014 [facility] c-[id number] 411 P[place]ie S. Refill [id number] 12/16 12/16 Andreas Benton MD fb-8vx9-15t /2014 [facility] 0-8611ak63y bd2 Pachie S. Refill i7v6d581-12 12/16 12/16 Andreas Benton MD 4b-4887-b06 /2014 [facility] 3-2q3y50bv1 701 P[place]ie S. Refill pryj7z2a-3k 12/16 12/16 Andreas Benton MD 1e-419f-ba7 /2014 [facility] a-c248k0g87 3bf Pachie S. Refill a0rk382s-9r 01/19 01/19 Andreas Benton MD 67-1g24-s08 /2014 [facility] 4-697c0s1c7 571 Pachie S. Refill v4z17hua-40 01/19 01/19 Andreas Benton MD 2d-76l8-250 /2014 [facility] a-5z360mh9b 57c Pachie S. Refill d82nq3ic-h9 01/19 01/19 Andreas Benton MD 45-43dc-981 /2014 [facility] c-st3n9n7fg db3 Pachie S. Refill 12cj772t-81 01/19 01/19 Andreas Benton MD dc-88d3-ybt /2014 [facility] 1-04td160ck cdd Pachie S. Refill 827nz05z-83 01/19 01/19 Andreas Benton MD b0-4879-af7 /2014 [facility] 8-rok4m3609 5c6 Pachie S. Refill 88q797z7-m0 01/19 01/19 Andreas Benton MD e2-2o23-463 /2014 [facility] 0-2408hf386 35b Pachie S. Refill 7q7762o9-q2 01/19 01/19 Andreas Benton MD 78-1v95-ie2 /2014 [facility] d-[id number] 317 Pachie S. Refill 19682t31-7f 01/19 01/19 Andreas Benton MD a7-8r69-fp8 /2014 [facility] d-j892wu89z f46 P[place]ie S. Refill o7289g84-85 01/19 01/19 Andreas Benton MD c3-7s3m-122 /2014 [facility] b-43xsnx519 909 P[place]ie S. Refill 222q14i5-x6 01/19 01/19 Andreas Benton MD 14-2k57-32c /2014 [facility] [id number] d13 P[place]ie S. Refill 4x1zw78h-qw 01/19 01/19 Andreas Benton MD b4-478c-9b0 /2014 [facility] 5-9943irmb5 0b8 P[place]ie S. Refill 35p79825-44 01/19 01/19 Andreas Benton MD ba-407f-859 /2014 [facility] a-2f8l3z328 9d1 Pachie S. Refill [id number] 01/19 01/19 Andreas Benton MD da-5r41-xs9 /2014 [facility] 4-3p96h5h2x 38c Pachie S. Refill [id number]-e0 01/19 01/19 Andreas Benton MD c4-41fb-966 /2014 [facility] c-uy0509j36 ea4 Pachie S. Refill 9i7u4a2z-25 01/19 01/19 Andreas Benton MD 8f-4196-95f /2014 [facility] 0-52zd7186p a2f Pachie S. Refill t449up7r-yr 01/19 01/19 Andreas Benton MD 07-460e-8e1 /2014 [facility] f-1xs56zw3p f61 Andreas S. Refill 9xiwd6a0-1v 01/19 01/19 Andreas Benton MD 6b-4gv6-v19 /2014 [facility] 9-q218eqbdn 536 Pachie S. Refill 0mu56m2p-9r 01/19 01/19 Andreas Benton MD a4-7yg7-769 /2014 [facility] 9-73858u102 e59 Pachie S. BACK PAIN j34x82cb-85 01/29 01/29 Andreas Benton MD b0-4839-bbe /2014 [facility] 0-789774eiv d60 P[place]ie S. BACK PAIN r7wd8a5l-iw 01/29 01/29 Andreas Benton MD 3b-11w0-085 /2014 [facility] 9-55x3e812c 90f Pachie S. BACK PAIN [id number]-gw 01/29 01/29 Andreas Benton MD 28-09h4-926 /2014 [facility] 6-8zeg82ffq d4b Pachie S. BACK PAIN 17n3og63-k3 01/29 01/29 Andreas Benton MD 9d-4867-ab8 [facility] 6-yyru4xbf9 87c Pachie S. BACK PAIN 7g46dtho-15 01/29 01/29 Andreas Benton MD 56-35c9-013 /2014 [facility] [id number] 563 P[place]ie S. BACK PAIN k88e7x2s-c1 01/29 01/29 Andreas Benton MD 59-84s0-797 /2014 [facility] 2-2803l68k5 c9e Pachie S. BACK PAIN [id number]-73 01/29 01/29 Andreas Benton MD e9-44ce-b9c /2014 [facility] 0-40nop12w7 dd9 P[place]ie S. BACK PAIN 26o39j31-23 01/29 01/29 Andreas Benton MD b1-4dff-bd5 /2014 [facility] 1-r7pon1ma1 590 [place]ie S. BACK PAIN 9m3ue66e-51 01/29 01/29 Andreas Benton MD 58-6h95-561 /2014 [facility] 2-58bh45869 c61 P[place]ie S. BACK PAIN 6t828z22-j9 01/29 01/29 Andreas Benton MD 46-5sn1-7d8 /2014 [facility] 6-pn35uz030 3e6 P[place]ie S. BACK PAIN 907e7n9t-69 01/29 01/29 Andreas Benton MD 8e-6rz8-86o /2014 [facility] 5-0z518g868 c65 P[place]ie S. BACK PAIN jl4m33w5-w3 01/29 01/29 Andreas Benton MD c2-6u84-vyx /2014 [facility] f-a21x07e1l 502 P[place]ie S. BACK PAIN 1i053h01-1a 01/29 01/29 Andreas Benton MD c8-45cc-9f9 /2014 [facility] [id number] a0b Pachie S. BACK PAIN 32153k4p-7l 01/29 01/29 Andreas Benton MD 56-461e-90a /2014 [facility] b-4ekx06c0z b3d Pachie S. BACK PAIN 282w9w5x-al 01/29 01/29 Andreas Benton MD 60-6n2y-4p6 /2014 [facility] 6-926186h24 3f5 Pachie S. BACK PAIN 3f89704j-16 01/29 01/29 Andreas Benton MD 72-4fea-925 /2014 [facility] 4-jq3uprw8i 135 P[place]ie S. BACK PAIN k5pi2rco-38 01/29 01/29 Andreas Benton MD 7d-4dde-871 /2014 [facility] b-[id number] 991 P[place]ie S. BACK PAIN 44y1jhue-51 01/29 01/29 Andreas Benton MD 97-1v59-118 /2014 [facility] [id number] 0a8 Pachie S. Refill 29d6v99a-ji 02/20 02/20 Andreas Benton MD aa-4n1b-754 /2014 [facility] 8-6j2e485r7 1a3 Pachie S. Refill ca29t3bu-12 02/20 02/20 Andreas Benton MD 11-47bf-b3a /2014 [facility] 1-730z416k8 6ab Pachie S. Refill 93o6j3hh-56 02/20 02/20 Andreas Benton MD 34-42cc-a04 /2014 [facility] 7-6l23a0nk9 99c Pachie S. Refill 53v85g2p-32 02/20 02/20 Andreas Benton MD 76-69h9-eq1 /2014 [facility] 7-3470jk543 3bc Pachie S. Refill w083620j-91 02/20 02/20 Andreas Benton MD 6d-6z2j-afj /2014 [facility] a-t0tcue0d4 ec4 P[place]ie S. Refill 2h4hv5r7-es 02/20 02/20 Andreas Benton MD 71-420f-813 /2014 [facility] d-[id number] 0b4 Pachie S. Refill [id number]-hl 02/20 02/20 Andreas Benton MD 9c-4ded-b1 /2014 [facility] 3-64tf2x788 967 P[place]ie S. Refill 740v68r3-xa 02/20 02/20 Andreas Benton MD df-2lj9-m18 [facility] b-746rogkg9 c79 Pachie S. Refill p0139792-5w 02/20 02/20 Andreas Benton MD d3-8ps4-j93 [facility] 4-99z4fk0xb 0e9 Pachie S. Refill [id number]-s4 02/20 02/20 Andreas Benton MD 13-46a0-ws2 /2014 [facility] a-12e2k8x45 a8e Pachie S. Refill weg86u10-vm 02/20 02/20 Andreas Benton MD fe-4407-8b5 /2014 [facility] 9-2888278by c5a Pachie S. Refill l1sv25h7-zr 02/20 02/20 Andreas Benton MD 70-476f-a49 /2014 [facility] 1-lw91km4sf 2b3 Pachie S. Refill 01y8r6l4-b2 02/20 02/20 Andreas Benton MD 86-421c-8d0 /2014 [facility] 4-[id number] 497 Pachie S. Refill 5832j256-ep 02/20 02/20 Andreas Benton MD 37-0y23-s48 /2014 [facility] 2-7r08q2e5q 3e6 Pachie S. Refill o3czeo65-7n 02/20 02/20 Andreas Benton MD d9-70l9-158 /2014 [facility] 7-2d74ctu1q 73e Pachie S. Refill 42x1z78f-ah 02/20 02/20 Andreas Benton MD db-52b7-t56 /2014 [facility] 4-[id number] 22e Pachie S. Refill e3m1p038-zf 02/20 02/20 Andreas Benton MD 8a-4244-afb /2014 [facility] a-[id number] c60 Pachie S. adderall 3577x95c-9h 03/19 03/19 Andreas Benton MD 2e-4fae-924 /2014 [facility] 0-6835o47fi 807 Pachie S. adderall 1f69f9i3-16 03/19 03/19 Andreas Benton MD 42-35k1-mm5 /2014 [facility] 9-ao4d9v5no 1f1 Pachie S. adderall [id number] 03/19 03/19 Andreas Benton MD b8-9m86-w01 /2014 [facility] 0-8gjod6y31 f2d Pachie S. adderall pp3wh5op-z2 03/19 03/19 Andreas Benton MD f3-3s5j-eqr /2014 [facility] b-[id number] 212 Pachie S. adderall 567389s5-f8 03/19 03/19 Andreas Benton MD a3-1w1u-508 /2014 [facility] b-[id number] 09f Pachie S. adderall 3atu112y-5c 03/19 03/19 Andreas Benton MD c7-499b-b1f /2014 [facility] 7-vk002e02h 77c Pachie S. adderall c5e9281w-p8 03/19 03/19 Andreas Benton MD 2d-4009-866 /2014 [facility] [id number] d0a Andreas S. adderall [id number] 03/19 03/19 Andreas Benton MD 8d-3e96-dsg /2014 [facility] [id number] 03d Pachellen S. adderall [id number] 03/19 03/19 Andreas Benton MD ed-4939-bc6 /2014 [facility] d-[id number] cd6 Pachie S. adderall [id number] 03/19 03/19 Andreas Benton MD b3-4w34-42n /2014 [facility] b-[id number] 115 Pachellen S. adderall -88 03/19 03/19 Andreas Benton MD 9d-40fd-rebecca /2014 [facility] f-[id number] 483 Pachie S. adderall [id number] 03/19 03/19 Andreas Benton MD 84-4231-a16 /2014 [facility] [id number] 112 Pachie S. adderall [id number]-fc 03/19 03/19 Andreas Benton MD 32-449f-a44 /2014 [facility] [id number] c21 Andreas S. adderall [id number] 03/19 03/19 Andreas Benton MD eb-3ya8-d90 /2014 [facility] [id number] ecf Andreas S. adderall [id number] 03/19 03/19 Andreas Benton MD 84-6ni0-mu5 /2014 [facility] [id number] b2b Andreas S. adderall [id number] 03/19 03/19 Andreas Benton MD 74-43ff-b7c /2014 [facility] [id number] a01 Pachie S. MEDS. [id number]-yb 04/23 04/23 Andreas Benton MD 7d-8q5g-07s /2014 [facility] [id number] 111 Pachie S. MEDS. [id number] 04/23 04/23 Andreas Benton MD a1-41af-aea /2014 [facility] [id number] 6af Pachie S. MEDS. [id number] 04/23 04/23 Andreas Benton MD db-1x7w-41i /2014 [facility] d-[id number] 291 Pachie S. MEDS. [id number]-d3 04/23 04/23 Andreas Benton MD 40-4cw7-hq4 /2014 [facility] [id number] fc1 Pachie S. MEDS. [id number] 04/23 04/23 Andreas Benton MD 04-45g6-g4b /2014 [facility] d-[id number] a43 Pachie S. MEDS. [id number] 04/23 04/23 Andreas Benton MD a3-0ef0-m1s /2014 [facility] f-[id number] 140 Pachie S. MEDS. [id number] 04/23 04/23 Andreas Benton MD b9-9k30-tp7 /2014 [facility] d-[id number] 33f Pachie S. MEDS. [id number] 04/23 04/23 Andreas Benton MD 08-8ui3-62e /2014 [facility] d-[id number] cdf Pachie S. MEDS. [id number] 04/23 04/23 Andreas Benton MD e9-4afd-8c4 /2014 [facility] d-[id number] c16 Pachie S. MEDS. [id number]-[id number] 04/23 04/23 Andreas Benton MD 8b-468f-bd1 /2014 [facility] [id number] d13 Pachie S. MEDS. [id number] 04/23 04/23 Andreas Benton MD 5e-445b-99d /2014 [facility] 5-[id number] 4ec Pachie S. MEDS. [id number]-g2 04/23 04/23 Andreas Benton MD bc-440b-931 /2014 [facility] [id number] 51a Pachie S. MEDS. [id number] 04/23 04/23 Andreas Benton MD 41-7x62-028 /2014 [facility] 6-[id number] 4a6 Pachie S. MEDS. [id number] 04/23 04/23 Andreas Benton MD b3-4ddc-ad4 /2014 [facility] [id number] 10e Pachie S. MEDS. [id number] 04/23 04/23 Andreas Benton MD 8f-4579-9b9 /2014 [facility] 9-[id number] 7f3 Pachie S. MEDS. [id number]-oj 04/23 04/23 Andreas Benton MD 59-489a-a17 /2014 [facility] [id number] f6e Pachie S. Refill [id number] 05/22 05/22 Andreas Benton MD cc-6rr8-ca1 /2014 [facility] [id number] 1bb Pachie S. Refill [id number] 05/22 05/22 Andreas Benton MD 2d-3f98-34d /2014 [facility] [id number] db3 Pachie S. Refill [id number] 05/22 05/22 Andreas Benton MD 54-8q68-a24 /2014 [facility] [id number] d68 Pachie S. Refill [id number] 05/22 05/22 Andreas Benton MD 1e-9x20-5u4 /2014 [facility] c-[id number] 417 Pachie S. Refill [id number]-se 05/22 05/22 Andreas Benton MD 02-3ee4-v46 /2014 [facility] e-[id number] 6c7 Pachie S. Refill [id number] 05/22 05/22 Andreas Benton MD b3-57m7-m00 /2014 [facility] [id number] f8a Pachie S. Refill [id number]-o2 05/22 05/22 Andreas Benton MD 45-4529-b03 /2014 [facility] b-[id number] 5d2 Pachie S. Refill [id number]-[id number] 05/22 05/22 Andreas Benton MD fc-45fe-a8b /2014 [facility] 9-[id number] 6a1 Pachie S. Refill [id number] 05/22 05/22 Andreas Benton MD b0-3wr6-yjr /2014 [facility] 7-[id number] 0dc Pachie S. Refill 10ocxw57-30 05/22 05/22 Andreas Benton MD 8d-47fb-9b0 /2014 [facility] b-[id number] a48 Pachie S. Refill [id number]-zl 05/22 05/22 Andreas Benton MD 92-1y55-i69 /2014 [facility] [id number] be3 Pachie S. Refill [id number] 05/22 05/22 Andreas Benton MD 8d-1tz4-6k8 /2014 [facility] a-[id number] 888 Pachie S. Refill [id number] 05/22 05/22 Andreas Benton MD 91-403d-a7c /2014 [facility] [id number] 9fa Pachie S. Refill [id number]-34 05/22 05/22 Andreas Benton MD df-46ab-95e /2014 [facility] [id number] 0cd [place]ie S. Refill [id number] 05/22 05/22 Andreas Benton MD cf-4196-a88 /2014 [facility] 8-[id number] db2 [place] S. Refill [id number] 05/28 05/28 Andreas Benton MD 5a-4710-a19 /2014 [facility] b-[id number] 1db [place]ie S. Refill [id number] 05/28 05/28 Andreas Benton MD 36-495a-a65 /2014 [facility] [id number] e4f [place] S. Refill [id number]-89 05/28 05/28 Andreas Benton MD fd-400e-82c /2014 [facility] 0-[id number] df1 [place] S. Refill [id number]-s6 05/28 05/28 Andreas Benton MD 75-00w0-05a /2014 [facility] 6-[id number] 172 [place] S. Refill [id number]-25 05/28 05/28 Andreas Benton MD 83-8s03-p1e /2014 [facility] [id number] 2fc [place]ie S. Refill [id number] 05/28 05/28 Andreas Benton MD 27-4148-88c /2014 [facility] [id number] bcf [place]ie S. Refill [id number]-66 05/28 05/28 Andreas Benton MD 07-9d70-71s /2014 [facility] [id number] 8ff [place]ie S. Refill [id number] 05/28 05/28 Andreas Benton MD 3a-4fcd-8bf /2014 [facility] [id number] aa2 [place] S. Refill [id number] 05/28 05/28 Andreas Benton MD [id number]-266 /2014 [facility] a-[id number] 524 [place] S. Refill [id number] 05/28 05/28 Andreas Benton MD d5-4488-a85 /2014 [facility] d-[id number] 638 [place] S. Refill [id number] 05/28 05/28 Andreas Benton MD 33-4951-8c4 /2014 [facility] b-[id number] 61a [place] S. Refill [id number] 05/28 05/28 Andreas Benton MD 5a-4448-a11 /2014 [facility] [id number] 122 [place] S. Refill [id number]-p6 05/28 05/28 Andreas Benton MD 2a-45m6-8oo /2014 [facility] d-[id number] f68 [place] S. Refill [id number] 05/28 05/28 Andreas Benton MD bf-4za7-h85 /2014 [facility] 7-[id number] 7c3 [place] S. Refill [id number] 06/19 06/19 Andreas Benton MD 77-4c9z-l6c /2015 [facility] 2-[id number] fdf [place] S. Refill [id number] 06/19 06/19 Andreas Benton MD 34-4282-9f7 /2015 [facility] [id number] 13e [place]ie S. 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 Refill [id number]-xu 06/19 06/19 Andreas Benton MD 1a-4231-9f9 [facility] 0-[id number] 139 [place] S. Refill [id number] 06/19 06/19 Andreas Benton MD 0d-56n6-865 /2015 [facility] [id number] 760 [place] S. Refill [id number] 06/19 06/19 Andreas Benton MD [id number] /2015 [facility] [id number] 82f [place] S. Refill [id number]-yl 06/19 06/19 Andreas Benton MD ac-74f9-j91 /2015 [facility] [id number] 5a3 [place] S. Refill [id number] 06/19 06/19 Andreas Benton, ea-4608-bf0 /2015 [facility] 0-[id number] aa9 [place] S. Refill [id number] 06/19 06/19 Andreas Benton, 1d-444a-90d /2015 [facility] e-[id number] 1c1 [place] S. Refill [id number]-e9 06/19 06/19 Andreas Benton, ec-5lm7-1ls /2015 [facility] 8-[id number] 2d7 [place] S. Refill [id number] 06/19 06/19 Andreas Benton MD d9-4272-9fa /2015 [facility] [id number] 9ef [place]ie S. Refill [id number]-[id number] 06/19 06/19 Andreas Benton MD 08-77d4-a31 /2015 [facility] d-[id number] 254 [place] S. MEDS [id number] 08/05 08/05 Andreas Benton MD [id number]-flm /2015 [facility] f-[id number] eea [place] S. MEDS [id number] 08/05 08/05 Andreas Benton MD [id number]-b11 /2015 [facility] d-[id number] 55a [place] S. MEDS [id number] 08/05 08/05 Andreas Benton MD [id number] /2015 [facility] 2-[id number] 7b1 [place] S. MEDS [id number] 08/05 08/05 Andreas Benton MD c7-432a-ad4 /2015 [facility] f-[id number] 062 [place] S. MEDS [id number]-30 08/05 08/05 Andreas Benton MD b8-3cr6-kzc /2015 [facility] 7-[id number] 565 [place] S. MEDS [id number] 08/05 08/05 Andreas Benton MD c6-44db-ae9 /2015 [facility] a-[id number] 331 [place] S. MEDS [id number] 08/05 08/05 Andreas Benton MD be-59q7-850 /2015 [facility] d-[id number] a9c [place] S. MEDS [id number] 08/05 08/05 Andreas Benton MD 4d-4005-a03 /2015 [facility] [id number] dbf [place] S. MEDS [id number] 08/05 08/05 Anrdeas Benton MD 2f-4624-b71 /2015 [facility] d-[id number] 3af [place] S. MEDS [id number]-35 08/05 08/05 Andreas Benton MD [id number]-fu2 /2015 [facility] c-[id number] bb2 [place] S. MEDS [id number] 08/05 08/05 Andreas Benton MD [id number]-a4a /2015 [facility] 2-[id number] 621 [place] S. MEDS [id number] 08/05 08/05 Andreas Benton MD 74-4694-bb8 /2015 [facility] b-[id number] 755 [place] S. Refill [id number] 08/11 08/11 Andreas Benton MD [id number]-a18 /2015 [facility] [id number] 0ed [place] S. Refill [id number]-[id number] 08/11 08/11 Andreas Benton MD [id number]-t3v /2015 [facility] [id number] 7c9 [place] S. Refill [id number] 08/11 08/11 Andreas Benton MD 5d-4725-b66 /2015 [facility] 6-[id number] ce7 [place] S. Refill [id number] 08/11 08/11 Andreas Benton MD [id number]-f17 /2015 [facility] [id number] 419 [place] S. Refill [id number]-46 08/11 08/11 Andreas Benton MD 56-450c-935 /2015 [facility] d-[id number] 701 [place] S. Refill [id number]-r8 08/11 08/11 Andreas Benton MD [id number]-4146-a97 /2015 [facility] a-[id number] 1af [place] S. Refill [id number] 08/11 08/11 Andreas Benton MD a9-4569-ad1 /2015 [facility] e-[id number] f85 [place] S. Refill [id number]-15 08/11 08/11 Andreas Benton MD [id number] /2015 [facility] [id number] 06f [place] S. Refill [id number]-55 08/11 08/11 Andreas Benton MD 80-4309-9e8 /2015 [facility] 8-[id number] dc7 [place] S. Refill [id number]-08 08/11 08/11 Andreas Benton MD [id number]-gwf /2015 [facility] d-[id number] b83 [place]ie S. Refill [id number] 08/11 08/11 Andreas Benton MD [id number] /2015 [facility] 2-[id number] 5f1 [place] S. BLOOD LOW/ [id number] 09/15 09/15 Andreas Benton MD PASSING OUT [id number]-b8d /2015 [facility] [id number] 8ca [place]ie S. BLOOD LOW/ [id number] 09/15 09/15 Andreas Benton MD PASSING OUT [id number]-tm7 [facility] c-[id number] e98 [place]ie S. BLOOD LOW/ [id number] 09/15 09/15 Andreas Benton MD PASSING OUT [id number]-ov4 [facility] [id number] 91e [place]ie S. BLOOD LOW/ [id number]-e0 09/15 09/15 Andreas Benton MD PASSING OUT 6f-44be-8b9 [facility] [id number] 77d [place]ie S. BLOOD LOW/ [id number] 09/15 09/15 Andreas Benton MD PASSING OUT cc-[id number] /2015 [facility] [id number] f67 [place] S. BLOOD LOW/ [id number] 09/15 09/15 Andreas Benton MD PASSING OUT 07-7q6z-j25 /2015 [facility] 4-[id number] e89 [place] S. BLOOD LOW/ 7yln7p7c-q8 09/15 09/15 Andreas Benton MD PASSING OUT [id number]-b2a /2015 [facility] 5-[id number] e08 [place] S. BLOOD LOW/ [id number]-lr 09/15 09/15 Andreas Benton MD PASSING OUT [id number]-7y3 /2015 [facility] 1-[id number] 239 [place] S. BLOOD LOW/ [id number]-cc 09/15 09/15 Andreas Benton MD PASSING OUT [id number]-q35 /2015 [facility] 1-[id number] 406 [place] S. BLOOD LOW/ [id number] 09/15 09/15 Andreas Benton MD PASSING OUT [id number]-afb /2015 [facility] [id number] 24a P[place]ie S. STICHES [id number]-q7 10/01 10/01 Andreas Benton MD REMOVAL [id number]-b2d /2015 [facility] a-[id number] 749 [place]ie S. STICHES [id number]-ck 10/01 10/01 Andreas Benton MD REMOVAL 44-4711-8a7 /2015 [facility] b-[id number] 6af [place]ie S. STICHES 77c37c7l-91 10/01 10/01 Andreas Benton MD REMOVAL 75-7lp9-8rs /2015 [facility] 9-[id number] f1f P[place]ie S. STICHES [id number]-a1 10/01 10/01 Andreas Benton MD REMOVAL [id number] /2015 [facility] [id number] b99 P[place]ie S. STICHES e0tbzr5i-08 10/01 10/01 Andreas Benton MD REMOVAL [id number]-gq9 /2015 [facility] [id number] 93f P[place]ie S. STICHES [id number] 10/01 10/01 Andreas Benton MD REMOVAL 00-4588-8d1 /2015 [facility] b-[id number] b55 [place] S. STICHES [id number]-iq 10/01 10/01 Andreas Benton MD REMOVAL [id number]-vu9 /2015 [facility] f-[id number] e30 [place]ie S. STICMENDEZ [id number]-yw 10/01 10/01 Andreas Benton MD REMOVAL 28-4r4h-5l8 /2015 [facility] [id number] cf0 P[place]ie S. STICMENDEZ [id number] 10/01 10/01 Andreas Benton MD REMOVAL [id number] /2015 [facility] 0-[id number] c4f Pachie S. JOCELYN/ [id number] 10/29 10/29 Andreas Benton MD MEDS [id number] /2015 [facility] 5-[id number] 1a8 [place] S. JOCELYN/ [id number] 10/29 10/29 Andreas Benton MD MEDS [id number]-[id number] /2015 [facility] 5-[id number] ada [place]ie S. JOCELYN/ [id number]-60 10/29 10/29 Andreas Benton MD MEDS dc-4289-a0b /2015 [facility] [id number] a85 P[place] S. JOCELYN/ [id number] 10/29 10/29 Andreas Benton MD MEDS [id number] /2015 [facility] f-[id number] 293 [place] S. JOCELYN/ [id number]-18 10/29 10/29 Andreas Benton MD MEDS dc-[id number] /2015 [facility] [id number] 497 [place] S. JOCELYN/ [id number] 10/29 10/29 Andreas Benton, MEDS be-4877-aee /2015 [facility] 4-[id number] c30 [place] S. JOCELYN/ 85u2q62w-2m 10/29 10/29 Andreas Benton, MEDS [id number] /2015 [facility] [id number] e6f [place] S. JOCELYN/ [id number]-6z 10/29 10/29 Andreas Benton, MEDS 8b-[id number] /2015 [facility] d-[id number] 5c1 [place] S. Unknown [id number] 11/16 11/16 Andreas Benton, 7e-5w1q-prr /2015 [facility] 9-[id number] 2b4 [place] S. Unknown [id number]-r5 11/16 11/16 Andreas Benton MD [id number]-a9c /2015 [facility] [id number] 1b9 [place] S. Unknown [id number] 11/16 11/16 Andreas Benton, 53-20w4-i65 /2015 [facility] 3-[id number] 027 [place] S. Unknown [id number] 11/16 11/16 Andreas Benton MD ea-8h33-4i3 /2015 [facility] [id number] 996 [place] S. Unknown [id number] 11/16 11/16 Andreas Benton MD 6f-487d-bd4 /2015 [facility] a-[id number] 758 [place] S. Unknown [id number]-[id number] 11/16 11/16 Andreas Benton MD 37-4532-857 /2015 [facility] f-[id number] 33a P[place]ie S. Unknown [id number] 11/16 11/16 Andreas Benton MD 89-4eg2-5y7 /2015 [facility] [id number] 723 [place] S. F/U MEDS [id number] 02/07 02/07 Andreas Benton MD 06-4698-b48 /2015 [facility] [id number] 42d [place] S. F/U MEDS [id number] 02/07 02/07 Andreas Benton MD bf-94h9-iz3 /2015 [facility] e-[id number] c30 Andreas S. F/U MEDS [id number] 02/07 02/07 Andreas Benton MD [id number] /2015 [facility] [id number] b9e [place] S. F/U MEDS [id number] 02/07 02/07 Andreas Benton MD [id number] /2015 [facility] [id number] b91 [place] S. F/U MEDS [id number] 02/07 02/07 Andreas Benton MD [id number] /2015 [facility] 1-[id number] cd8 Kalieie S. F/U MEDS [id number] 02/07 02/07 Andreas Benton MD [id number]-b23 /2015 [facility] [id number] 701 [place]ie S. HOSP FU/MED [id number]-85 04/28 04/28 Andreas Benton MD REFILLS cd-4320-b19 /2015 [facility] [id number] 251 [place] S. HOSP FU/MED [id number] 04/28 04/28 Andreas Benton MD REFILLS [id number]-353 /2015 [facility] [id number] 82d [place] S. HOSP FU/MED [id number] 04/28 04/28 Andreas Benton MD REFILLS ab-4991-a4d /2015 [facility] c-[id number] ff1 [place] S. HOSP FU/MED [id number]-lq 04/28 04/28 Andreas Benton MD REFILLS [id number]-rebecca /2015 [facility] c-[id number] bef [place] S. HOSP FU/MED [id number] 04/28 04/28 Andreas Benton MD REFILLS 56-8m81-06y /2015 [facility] [id number] 7d3 [place] S. refill-adde [id number] 05/10 05/10 Andreas Benton MD rall [id number] /2015 [facility] [id number] 508 [place] S. refill-adde [id number] 05/10 05/10 Andreas Benton MD rall 91-7s29-0i0 /2015 [facility] 9-6vxv6m45v 5b8 [place] S. refill-adde 5472mw33-8d 05/10 05/10 Andreas Benton MD rall af-8tw6-863 /2015 [facility] [id number] cf5 [place] S. refill-adde [id number]-53 05/10 05/10 Andreas Benton MD rall [id number]-lty /2015 [facility] 9-[id number] 8ed P[place]ie S. refill-adde [id number]-59 06/08 06/08 Andreas Benton MD rall [id number]-a12 /2015 [facility] [id number] e12 [place] S. refill-adde ebbbffa2-7c 06/08 06/08 Andreas Benton MD rall dd-4340-8d7 /2015 [facility] [id number] 4bc [place] S. refill-adde [id number]-61 06/08 06/08 Andreas Benton MD rall 9e-407a-8f8 /2015 [facility] [id number] 136 [place] S. Refill [id number]-u1 07/07 07/07 Andreas Benton MD 5d-[id number] /2016 [facility] d-[id number] c9b P[place]ie S. Refill [id number]-id 07/07 07/07 Andreas Benton MD ea-436c-801 /2016 [facility] 4-[id number] a00 Pachie S. MED REFILL [id number]-jj 08/16 08/16 Andreas Benton MD [id number]-uk8 [facility] [id number] f0d Procedures Procedure Code Date Perfomer Comments Source
--- OUTSIDE RECORDS SUMMARY | 2018-03-03 09:02 | XMS REPORT ---
:1990 Author Organization e[employer] Care Team Providers Name Role Phone Andreas Benton Provider Role Unavailable Allergies No Known Allergies Problems Problem Type Condition Code Onset Dates Condition Status Assessment ADD (attention deficit disorder) F98.8 Active Problem ADD (attention deficit disorder) F90.0 Active Problem Anxiety F41.9 Active Problem ADD (attention deficit disorder) F98.8 Active Problem Acute pancreatitis, unspecified K85.90 Active complication status, unspecified pancreatitis type Problem Liver dysfunction K76.89 Active Problem Encounter for removal of sutures Z48.02 Active Problem BMI 28.0-28.9,adult Z68.28 Active Problem Benign essential hypertension I10 Active Problem Body mass index (BMI) of 24.0 to Z68.24 Active 24.9 in adult Medications Medication Code System Code Instructions Start Date End Date Status Dosage Adderall [facility] [address] 30 MG Orally BID October 14, Active 1 tablet -2016 Results No Known Results Summary Purpose eClinicalWorks Submission
--- OUTSIDE RECORDS SUMMARY | 2018-03-03 09:02 | XMS REPORT ---
:1988 Author Organization [employer] Care Team Providers Name Role Phone Andreas Benton Provider Role Unavailable Allergies No Known Allergies Problems Problem Type Condition Code Onset Dates Condition Status Problem ADD (attention deficit disorder) F90.0 Active Problem Encounter for removal of sutures Z48.02 Active Problem BMI 28.0-28.9,adult Z68.28 Active Assessment Anxiety F41.9 Active Problem Anxiety F41.9 Active Problem BMI 30.0-30.9,adult Z68.30 Active Problem Liver dysfunction K76.89 Active Problem Depression, unspecified depression F32.9 Active type Problem Benign essential hypertension I10 Active Problem Body mass index (BMI) of 24.0 to Z68.24 Active 24.9 in adult Problem ADD (attention deficit disorder) F98.8 Active Problem Acute pancreatitis, unspecified K85.90 Active complication status, unspecified pancreatitis type Medications Medication Code System Code Instructions Start Date End Date Status Dosage Ativan [facility] [address] 0.5 MG Orally BID Active 1 tablet -01 prn Results No Known Results Summary Purpose eClinicalWorks Submission
--- OUTSIDE RECORDS SUMMARY | 2018-03-03 09:02 | XMS REPORT ---
[...] Start Date End Date Status Dosage Adderall [facility] [address] 30 MG Orally BID September 19, Active 1 tablet -2016 Results No Known Results Summary Purpose eClinicalWorks Submission
--- OUTSIDE RECORDS SUMMARY | 2018-03-03 09:02 | XMS REPORT ---
:1988 Author Organization e[employer]Works Care Team Providers Name Role Phone Andreas Benton Provider Role Unavailable Allergies No Known Allergies Problems Problem Type Condition Code Onset Dates Condition Status Problem ADD (attention deficit disorder) F90.0 Active Problem Encounter for removal of sutures Z48.02 Active Problem BMI 28.0-28.9,adult Z68.28 Active Assessment ADD (attention deficit disorder) F90.0 Active Problem Anxiety F41.9 Active Problem BMI [...] Start Date End Date Status Dosage Adderall [facility] [address] 30 MG Orally BID November 17, Active 1 tablet -2016 Results No Known Results Summary Purpose eClinicalWorks Submission
--- OUTSIDE RECORDS SUMMARY | 2018-03-03 09:02 | XMS REPORT ---
:1988 Author Organization eClinicalWorks Care Team Providers Name Role Phone Andreas Benton Provider Role Unavailable Allergies No Known Allergies Problems Problem Type Condition Code Onset Dates Condition Status Problem ADD (attention deficit disorder) F90.0 Active Problem Encounter for removal of sutures Z48.02 Active Problem BMI 28.0-28.9,adult Z68.28 Active Problem BMI 30.0-30.9,adult Z68.30 Active Problem Liver dysfunction K76.89 Active Problem Depression, unspecified depression F32.9 Active type Problem Benign essential hypertension I10 Active Problem Body mass index (BMI) of 24.0 to Z68.24 Active 24.9 in adult Problem ADD (attention deficit disorder) F98.8 Active Problem Acute pancreatitis, unspecified K85.90 Active complication status, unspecified pancreatitis type Assessment Anxiety F41.9 Active Assessment ADD (attention deficit disorder) F90.0 Active Problem Anxiety F41.9 Active Medications Medication Code System Code Instructions Start Date End Date Status Dosage Adderall [facility] [address] 30 MG Orally BID December 21, Active 1 tablet -2016 Ativan [facility] [address] 0.5 MG Orally BID Active 1 tablet - prn Results No Known Results Summary Purpose eClinicalWorks Submission
--- OUTSIDE RECORDS SUMMARY | 2018-03-03 09:02 | XMS REPORT ---
:1988 Author Organization eClinicalWorks Care Team Providers Name Role Phone Andreas Benton Provider Role Unavailable Allergies, Adverse Reactions, Alerts Substance Reaction Event Type Tramadol seizures Drug Allergy NSAIDs stomach ulcers Non Drug Allergy latex Info Not Available Non Drug Allergy Problems Problem Type Condition Code Onset Dates [...] Active complication status, unspecified pancreatitis type Assessment ADD (attention deficit disorder) F90.0 Active Assessment Depression, unspecified depression F32.9 Active type Assessment Benign essential hypertension I10 Active Assessment BMI 30.0-30.9,adult Z68.30 Active Problem Anxiety F41.9 Active Medications Medication Code System Code Instructions Start End Date Status Dosage Date Ferrous Sulfate [facility] [address]146-55 325 (65 Fe) MG Active 1 tablet 01-10 Orally Once a day Ativan NDC 50989-92 0.5 MG Orally Active 1 tablet 63-01 BID prn Wellbutrin XL NDC 67903-34 150 MG Orally October 27, Active 1 tablet in 30-30 Once a day 2017 the morning Flexeril NDC 0 10 MG Orally Active 1 tablet every 8 hours as needed for spasm Adderall NDC 29113-32 30 MG Orally BID October 14, Active 1 tablet 68-02 2016 [place] [address]-49 25 MG Orally October 27, Active 1 tablet 87-01 Once a day- hold 2017 for SBP <110 and HR <60 Vital Signs Date/Time: October 27, 2016 BMI 30.38 Index Weight 194 lbs Height 67 in Cardiac Monitoring Heart Rate 100 /min Blood Pressure Diastolic 97 mm Hg Blood Pressure Systolic 125 mm Hg Results No Known Results Summary Purpose eClinicalWorks Submission
--- OUTSIDE RECORDS SUMMARY | 2018-03-03 09:02 | XMS REPORT ---
:1988 Author Organization eClinicalWorks Care Team Providers Name Role Phone Andreas Benton Provider Role Unavailable Allergies, Adverse Reactions, Alerts Substance Reaction Event Type Tramadol seizures Drug Allergy NSAIDs stomach ulcers Non Drug Allergy latex Info Not Available Non Drug Allergy Problems Problem Type Condition Code Onset Dates Condition Status Assessment Liver dysfunction K76.89 Active Problem ADD (attention deficit disorder) F90.0 [...] 24.0 to Z68.24 Active 24.9 in adult Assessment Body mass index (BMI) of 24.0 to Z68.24 Active 24.9 in adult Assessment Benign essential hypertension I10 Active Assessment ADD (attention deficit disorder) F98.8 Active Assessment Anxiety F41.9 Active Assessment Acute pancreatitis, unspecified K85.90 Active complication status, unspecified pancreatitis type Medications Medication Code System Code Instructions Start End Date Status Dosage Date Ativan NDC 406[address]-561 0.5 MG Orally BID Active 1 tablet 08-10 prn Adderall NDC [address]66[address]-296 30 MG Orally BID August 18, Active 1 tablet 01-11 Flexeril NDC 0 10 MG Orally Active 1 tablet every 8 hours as needed for spasm Ferrous Sulfate NDC 12883-672 325 (65 Fe) MG Active 1 tablet 01-10 Orally Once a day Vital Signs Date/Time: August 18, 2016 BMI 29.44 Index Weight 188 lbs Height 67 in Cardiac Monitoring Heart Rate 98 /min Blood Pressure Diastolic 106 mm Hg Blood Pressure Systolic 136 mm Hg Results No Known Results Summary Purpose eClinicalWorks Submission
--- OUTSIDE RECORDS SUMMARY | 2018-03-03 09:02 | XMS REPORT ---
[...] Instructions Start End Date Status Dosage Date Flexeril NDC 0 10 MG Orally Active 1 tablet every 8 hours as needed for spasm Adderall [facility] [address] 30 MG Orally BID October 14, Active 1 tablet 01-11 Ferrous Sulfate [facility] [address] 325 (65 Fe) MG Active 1 tablet 01-10 [place] [address] 0.5 MG Orally BID Active 1 tablet 08-10 prn Results No Known Results Summary Purpose eClinicalWorks Submission
--- OUTSIDE RECORDS SUMMARY | 2018-03-03 09:03 | XMS REPORT ---
:1990 Author Organization eClinicalWorks Care Team Providers Name Role Phone Andreas Benton Provider Role Unavailable Allergies, Adverse Reactions, Alerts Substance Reaction Event Type Tramadol seizures Non Drug Allergy NSAIDs stomach ulcers Non Drug Allergy latex Info Not Available Non Drug Allergy Encounters Encounter Location Date refill Andreas Benton MD [facility] Aug 05, 2013 Problems Problem Type Condition ICD-9 Code Onset Dates Condition Status Problem Anemia Unspecified 285.9 Active Problem fibromyalgia, unspecified 729.1 Active myalgia and myositis Problem ADD 314.00 Active Problem Syncope 780.2 Active Problem Orthostatic hypotension 458.0 Active Problem ADD (attention deficit disorder) 314.00 Active Problem Anxiety 300.00 Active Problem Upper respiratory tract 465.9 Active infection Problem Arthralgia of multiple sites 719.49 Active Problem Anemia, chronic disease 285.29 Active Assessment ADD (attention deficit disorder) 314.00 Active Problem Hematochezia/ Hemorrhage of 569.3 Active rectum and anus Assessment Anxiety 300.00 Active Problem Rotator cuff (capsule) sprain 840.4 Active and strain Problem Impaired fasting glucose 790.21 Active Problem anxiety disorder, generalized 300.02 Active Problem arthritis, multiple sites 716.59 Active Problem Colitis, enteritis, and 009.1 Active gastroenteritis of presumed infectious origin Problem Allergic Reaction, unspecified 995.3 Active Medications Medication Code System Code Instructions Start Date End Date Status Dosage Bentyl [facility] [place] [address] 20MG Orally BID Active 1 tablet -52 as needed Ativan [facility] [place] [address] 0.5 MG Orally BID Active 1 tablet -60 prn Adderall [facility] [place] [address] 30 mg Orally BID Active 1 tablet -02 Social History Social History Element Qualifiers Date Reported Tobacco Use: . Are you a: current smoker, How many packs per Aug 05, 2013 day? 1 Alcohol: . infrequently Aug 05, 2013 Family history Qualifier Description Comment Date Reported Other: hypertension Aug 05, 2013 Vital Signs Date/Time: Aug 05, 2013 Weight 190 lbs Height 67 inches Cardiac Monitoring Heart Rate 95 Beats per Minute Blood Pressure Diastolic 70 mm Hg Blood Pressure Systolic 130 mm Hg Summary Purpose eClinicalWorks Submission
--- OUTSIDE RECORDS SUMMARY | 2018-03-03 09:03 | XMS REPORT ---
:1990 Author Organization eClinicalWorks Care Team Providers Name Role Phone Andreas Benton Provider Role Unavailable Allergies, Adverse Reactions, Alerts Substance Reaction Event Type Tramadol seizures Drug Allergy NSAIDs stomach ulcers Non Drug Allergy latex Info Not Available Non Drug Allergy Encounters Encounter Location Date LETTER NEEDED Andreas Benton MD [facility] October 09, 2013 Unknown Andreas Benton MD [facility] October 21, 2013 refill Andreas Benton MD [facility] Aug 05, 2013 Refill Andreas Benton MD [facility] September 04, 2013 Refill Andreas Benton MD [facility] October 07, 2013 Problems Problem Type Condition ICD-9 Code Onset Dates Condition Status Problem ADD 314.00 Active Problem Upper respiratory tract 465.9 Active infection Problem fibromyalgia, unspecified 729.1 Active myalgia and myositis Problem ADD (attention deficit disorder) 314.00 Active Problem Syncope 780.2 Active Problem Iron deficiency anemia 280.9 Active Problem Anemia, chronic disease 285.29 Active Problem Anxiety 300.00 Active Problem Orthostatic hypotension 458.0 Active Problem Arthralgia of multiple sites 719.49 Active Problem Colitis, enteritis, and 009.1 Active gastroenteritis of presumed infectious origin Problem Hematochezia/ Hemorrhage of 569.3 Active rectum and anus Assessment Anxiety 300.00 Active Assessment Iron deficiency anemia 280.9 Active Problem Rotator cuff (capsule) sprain 840.4 Active and strain Problem Impaired fasting glucose 790.21 Active Problem anxiety disorder, generalized 300.02 Active Problem Allergic Reaction, unspecified 995.3 Active Problem arthritis, multiple sites 716.59 Active Problem Anemia Unspecified 285.9 Active Medications Medication Code System Code Instructions Start Date End Date Status Dosage Bentyl MEDISPAN [address] 20MG Orally BID Active 1 tablet -52 as needed Ativan MEDISPAN [address] 0.5 MG Orally BID Active 1 tablet -60 prn Adderall MEDISPAN [address] 30 mg Orally BID Active 1 tablet -02 Social History Social History Element Qualifiers Date Reported Tobacco Use: . Are you a: current smoker, How many packs per October 21, 2013 day? 1 Alcohol: . infrequently October 21, 2013 Family history Qualifier Description Comment Date Reported Other: hypertension October 21, 2013 Vital Signs Date/Time: October 21, 2013 Weight 184 lbs Height 67 in Cardiac Monitoring Heart Rate 94 /min Blood Pressure Diastolic 72 mm Hg Blood Pressure Systolic 120 mm Hg Summary Purpose eClinicalWorks Submission
--- OUTSIDE RECORDS SUMMARY | 2018-03-03 09:03 | XMS REPORT ---
:1990 Author Organization eClinicalWorks Care Team Providers Name Role Andreas Uribe Provider Role Unavailable Encounters Encounter Location Date refill Andreas Benton MD [facility] Aug 05, 2013 Refill Andreas Benton MD [facility] September 04, 2013 Problems Problem Type Condition ICD-9 Code [...] Problem Anemia, chronic disease 285.29 Active Problem Colitis, enteritis, and 009.1 Active gastroenteritis of presumed infectious origin Problem arthritis, multiple sites 716.59 Active Problem Rotator cuff (capsule) sprain 840.4 Active and strain Problem Hematochezia/ Hemorrhage of 569.3 Active rectum and anus Problem Impaired fasting glucose 790.21 Active Problem anxiety disorder, generalized 300.02 Active Problem Allergic Reaction, unspecified 995.3 Active Medications Medication Code System Code Instructions Start Date End Date Status Dosage Adderall [facility] [address] 30 mg Orally BID Active 1 tablet -02 Social History Social History Element Qualifiers Date Reported Tobacco Use: . Are you a: current smoker, How many packs per Aug 05, 2013 day? 1 Alcohol: . infrequently Aug 05, 2013 Vital Signs Date/Time: Aug 05, 2013 Weight 190 lbs Height 67 inches Cardiac Monitoring Heart Rate 95 Beats per Minute Blood Pressure Diastolic 70 mm Hg Blood Pressure Systolic 130 mm Hg Summary Purpose eClinicalWorks Submission
--- OUTSIDE RECORDS SUMMARY | 2018-03-03 09:03 | XMS REPORT ---
:1990 Author Organization eClinicalWorks Care Team Providers Name Role Phone Andreas Benton Provider Role Unavailable Encounters Encounter Location Date LETTER NEEDED Andreas Benton MD [facility] October 09, 2013 Unknown Andreas Benton MD [facility] October 21, 2013 Unknown Andreas Benton MD [facility] November 01, 2013 seizure Andreas Benton MD [facility] December 05, 2013 refill Andreas Benton MD [facility] Aug 05, 2013 Unknown Andreas Benton MD [facility] Feb 07, 2014 Refill Andreas Benton MD [facility] September 04, 2013 DRY SOCKET Andreas Benton MD [facility] Feb 12, 2014 Refill Andreas Benton MD [facility] October 07, 2013 MEDS Andreas Benton MD [facility] Jan 30, 2014 Unknown Andreas Benton MD [facility] January 07, 2014 Unknown Andreas Benton MD [facility] Feb 04, 2014 Problems Problem Type Condition ICD-9 Code Onset [...] of 569.3 Active rectum and anus Assessment ADD (attention deficit disorder) 314.00 Active Assessment Anxiety 300.00 Active Problem Rotator cuff (capsule) sprain 840.4 Active and strain Problem Impaired fasting glucose 790.21 Active Problem anxiety disorder, generalized 300.02 Active Problem Allergic Reaction, unspecified 995.3 Active Problem arthritis, multiple sites 716.59 Active Problem Anemia Unspecified 285.9 Active Medications Medication Code System Code Instructions Start Date End Date Status Dosage Ativan MEDISPAN [address] 0.5 MG Orally BID Active 1 tablet -60 prn Adderall [facility] [address] 30 mg Orally BID Active 1 tablet -02 Social History Social History Element Qualifiers Date Reported Tobacco Use: . Are you a: former smoker quit 11/24/2013 Jan 30, 2014 Alcohol: . infrequently Jan 30, 2014 Summary Purpose eClinicalWorks Submission
--- OUTSIDE RECORDS SUMMARY | 2018-03-03 09:03 | XMS REPORT ---
:1990 Author Organization eClinicalWorks Care Team Providers Name Role Andreas Uribe Provider Role Unavailable Encounters Encounter Location Date LETTER NEEDED Andreas Benton MD [facility] October 09, 2013 refill Andreas Benton MD [facility] Aug 05, 2013 Refill Andreas Benton MD [facility] September 04, 2013 Refill Andreas Benton MD [facility] October 07, 2013 Problems Problem Type Condition [...] Date End Date Status Dosage Ativan MEDISPAN [address] 0.5 MG Orally BID Active 1 tablet -60 prn Bentyl MEDISPAN [address] 20MG Orally BID Active 1 tablet -52 as needed Adderall MEDISPAN [address] 30 mg Orally BID Active 1 tablet -02 Social History Social History Element Qualifiers Date Reported Tobacco Use: . Are you a: current smoker, How many packs per Aug 05, 2013 day? 1 Alcohol: . infrequently Aug 05, 2013 Summary Purpose eClinicalWorks Submission
--- OUTSIDE RECORDS SUMMARY | 2018-03-03 09:03 | XMS REPORT ---
:1990 Author Organization eClinicalWorks Care Team Providers Name Role Phone Andreas Benton Provider Role Unavailable Allergies No Known Allergies Problems Problem Type Condition Code Onset Dates Condition Status Problem ADD (attention deficit disorder) F90.0 Active Problem Encounter for removal of sutures Z48.02 Active Problem BMI 28.0-28.9,adult Z68.28 Active Problem Anxiety F41.9 Active Problem BMI 30.0-30.9,adult Z68.30 Active Problem Liver dysfunction K76.89 Active Problem Depression, unspecified depression F32.9 Active type Problem Benign essential hypertension I10 Active Problem Body mass index (BMI) of 24.0 to Z68.24 Active 24.9 in adult Problem ADD (attention deficit disorder) F98.8 Active Problem Acute pancreatitis, unspecified K85.90 Active complication status, unspecified pancreatitis type Medications No Known Medications Results No Known Results Summary Purpose [employer] Submission
--- OUTSIDE RECORDS SUMMARY | 2018-03-03 09:03 | XMS REPORT ---
:1988 Author Organization eClinicalWorks Care Team Providers Name Role Andreas Uribe Provider Role Unavailable Encounters Encounter Location Date LETTER NEEDED Andreas Benton MD [facility] October 09, 2013 Unknown Andreas Benton MD [facility] October 21, 2013 Unknown Andreas Benton MD [facility] November 01, 2013 refill Andreas Benton MD [facility] Aug 05, 2013 Refill Andreas Benton MD [facility] September 04, 2013 Refill Andreas Benton MD [facility] October 07, 2013 Problems Problem Type [...] ADD (attention deficit disorder) 314.00 Active Problem Rotator cuff (capsule) sprain 840.4 Active and strain Problem Impaired fasting glucose 790.21 Active Problem anxiety disorder, generalized 300.02 Active Problem Allergic Reaction, unspecified 995.3 Active Problem arthritis, multiple sites 716.59 Active Problem Anemia Unspecified 285.9 Active Medications Medication Code System Code Instructions Start Date End Date Status Dosage Adderall MEDISPAN [address] 30 mg Orally BID Active 1 tablet -02 Social History Social History Element Qualifiers Date Reported Tobacco Use: . Are you a: current smoker, How many packs per October 21, 2013 day? 1 Alcohol: . infrequently October 21, 2013 Summary Purpose eClinicalWorks Submission
--- OUTSIDE RECORDS SUMMARY | 2018-03-03 09:03 | XMS REPORT ---
[...] Instructions Start End Date Status Dosage Date Adderall [facility] 44249-03 30 MG Orally BID December 21, Active 1 [place] [address]-58 0.5 MG Orally Active 1 tablet 63- BID prn Atenolol [facility] 21788-00 25 MG Orally October 27, Active 1 tablet 87-01 Once a day- hold 2017 for SBP <110 and [place] <60 [place] [address]-34 150 MG Orally October 27, Active 1 tablet in 30-30 Once a day 2017 the morning Ferrous Sulfate [facility] 08460-99 325 (65 Fe) MG Active 1 tablet 08-01 Orally Once a day Results No Known Results Summary Purpose eClinicalWorks Submission
--- OUTSIDE RECORDS SUMMARY | 2018-03-03 09:03 | XMS REPORT ---
:1988 Author Organization eClinicalWorks Care Team Providers Name Role Phone Andreas Benton Provider Role Unavailable Encounters Encounter Location Date LETTER NEEDED Andreas Benton MD [facility] October 09, 2013 Unknown Andreas Benton MD [facility] October 21, 2013 Unknown Andreas Benton MD [facility] November 01, 2013 seizure Andreas Benton MD [facility] December 05, 2013 refill Andreas Benton MD [facility] Aug 05, 2013 Unknown Andreas Benton MD [facility] Feb 07, 2014 Refill Andreas Benton MD [facility] September 04, 2013 DRY SOCKET Andreas Benton MD [facility] Feb 12, 2014 Refill Andreas Benton MD [facility] October 07, 2013 MEDS Andreas Benton MD [facility] Jan 30, 2014 Unknown Andreas Benton MD [facility] January 07, 2014 Unknown Andreas Benton MD [facility] Feb 04, 2014 Problems Problem Type Condition ICD-9 Code Onset Dates Condition Status Problem fibromyalgia, unspecified 729.1 Active myalgia and myositis Problem Anxiety 300.00 Active Problem Upper respiratory tract 465.9 Active infection Problem Iron deficiency anemia 280.9 Active Problem ADD (attention deficit disorder) 314.00 Active Problem Anemia, iron deficiency 280.9 Active Problem Arthralgia of multiple sites 719.49 Active Problem Anemia, chronic disease 285.29 Active Problem Syncope 780.2 Active Problem Orthostatic hypotension 458.0 Active Problem Hematochezia/ Hemorrhage of 569.3 Active rectum and anus Problem anxiety disorder, generalized 300.02 Active Assessment Anxiety 300.00 Active Problem Colitis, enteritis, and 009.1 Active gastroenteritis of presumed infectious origin Problem Impaired fasting glucose 790.21 Active Problem Allergic Reaction, unspecified 995.3 Active Problem arthritis, multiple sites 716.59 Active Problem Anemia Unspecified 285.9 Active Problem Rotator cuff (capsule) sprain 840.4 Active and strain Problem ADD 314.00 Active Medications Medication Code System Code Instructions Start Date End Date Status Dosage Ativan [facility] [address] 0.5 MG Orally BID Active 1 tablet -60 prn Social History Social History Element Qualifiers Date Reported Tobacco Use: . Are you a: former smoker quit 11/24/2013 Jan 30, 2014 Alcohol: . infrequently Jan 30, 2014 Summary Purpose eClinicalWorks Submission
--- OUTSIDE RECORDS SUMMARY | 2018-03-03 09:03 | XMS REPORT ---
:1990 Author Organization eClinicalWorks Care Team Providers Name Role Andreas Uribe Provider Role Unavailable Encounters Encounter Location Date refill Andreas Benton MD [facility] Aug 05, 2013 Refill Andreas Benton MD [facility] September 04, 2013 Refill Andreas Benton MD [facility] October 07, 2013 Problems Problem Type [...] ADD (attention deficit disorder) 314.00 Active Problem Colitis, enteritis, and 009.1 Active [...] Start Date End Date Status Dosage Adderall [facility] [address] 30 mg Orally BID Active 1 tablet -02 Social History Social History Element Qualifiers Date Reported Tobacco Use: . Are you a: current smoker, How many packs per Aug 05, 2013 day? 1 Alcohol: . infrequently Aug 05, 2013 Summary Purpose eClinicalWorks Submission
--- OUTSIDE RECORDS SUMMARY | 2018-03-03 09:03 | XMS REPORT ---
[...] Medications Results No Known Results Summary Purpose [employer]spiel[employer]onlin[employer]ours Submission
--- OUTSIDE RECORDS SUMMARY | 2018-03-03 09:03 | XMS REPORT ---
:1990 Author Organization eClinicalWorks Care Team Providers Name Role Phone Andreas Benton Provider Role Unavailable Allergies, Adverse Reactions, Alerts Substance Reaction Event Type Tramadol seizures Drug Allergy NSAIDs stomach ulcers Non Drug Allergy latex Info Not Available Non Drug Allergy Encounters Encounter Location Date LETTER NEEDED Andreas Benton MD [facility] October 09, 2013 Unknown Andreas Benton MD [facility] October 21, 2013 Unknown Andreas Benton MD [facility] November 01, 2013 seizure Andreas Benton MD [facility] December 05, 2013 refill Andreas Benton MD [facility] Aug 05, 2013 Refill Andreas Benton MD [facility] September 04, 2013 Refill Andreas Benton MD [facility] October 07, 2013 Unknown Andreas Benton MD [facility] January 07, 2014 Problems Problem Type Condition ICD-9 Code [...] Date End Date Status Dosage Adderall MEDISPAN 71657-154 30 mg Orally BID Active 1 tablet 8-02 Ativan MEDISPAN 64505-762 0.5 MG Orally BID Active 1 tablet 7-60 prn Bentyl [facility] 339[address]-045 20MG Orally BID Active 1 tablet 0-52 as needed [place] [facility] [address]-522 10-325 MG Orally Active 1 tablet 0-73 BID as needed Social History Social History Element Qualifiers Date Reported Tobacco Use: . Are you a: former smoker quit 11/24/2013 Jan 30, 2014 Alcohol: . infrequently Jan 30, 2014 Vital Signs Date/Time: December 05, 2013 Weight 184 lbs Height 67 in Cardiac Monitoring Heart Rate 83 /min Blood Pressure Diastolic 90 mm Hg Blood Pressure Systolic 132 mm Hg Summary Purpose eClinicalWorks Submission
--- OUTSIDE RECORDS SUMMARY | 2018-03-03 09:03 | XMS REPORT ---
:1990 Author Organization eClinicalWorks Care Team Providers Name Role Phone Andreas Benton Provider Role Unavailable Encounters Encounter Location Date LETTER NEEDED Andreas Benton MD [facility] October 09, 2013 Unknown Andreas Bneton MD [facility] October 21, 2013 Unknown Andreas Benton MD [facility] November 01, 2013 seizure Andreas Benton MD [facility] December 05, 2013 refill Andreas Benton MD [facility] Aug 05, 2013 Unknown Andreas Benton MD [facility] Feb 07, 2014 Refill Andreas Benton MD [facility] September 04, 2013 DRY SOCKET Andreas Benton MD [facility] Feb 12, 2014 Refill Andreas Benton MD [facility] October 07, 2013 MEDS Andreas Benton MD [facility] Jan 30, 2014 Unknown Andreas Benton MD [facility] January 07, 2014 Unknown Andreas Benton MD [facility] Feb 04, 2014 Problems Problem Type Condition [...] anus Problem anxiety disorder, generalized 300.02 Active Problem Colitis, enteritis, and 009.1 Active gastroenteritis of presumed infectious origin Problem Impaired fasting glucose 790.21 Active Problem Allergic Reaction, unspecified 995.3 Active Problem arthritis, multiple sites 716.59 Active Problem Anemia Unspecified 285.9 Active Problem Rotator cuff (capsule) sprain 840.4 Active and strain Problem ADD 314.00 Active Medications Medication Code System Code Instructions Start Date End Date Status Dosage Ativan MEDISPAN 87795-308 0.5 MG Orally BID Active 1 tablet 7-60 prn Adderall [facility] 17881-637 30 mg Orally BID Active 1 tablet 8-02 [place] [facility] 41118-296 10-325 MG Orally Active 1 tablet 0-73 BID as needed Bentyl [facility] 730[address]-585 20MG Orally BID Active 1 tablet 0-52 as needed Social History Social History Element Qualifiers Date Reported Tobacco Use: . Are you a: former smoker quit 11/24/2013 Jan 30, 2014 Alcohol: . infrequently Jan 30, 2014 Vital Signs Date/Time: Feb 12, 2014 Weight 185 lbs Height 67 in Cardiac Monitoring Heart Rate 98 /min Blood Pressure Diastolic 60 mm Hg Blood Pressure Systolic 120 mm Hg Summary Purpose eClinicalWorks Submission
--- OUTSIDE RECORDS SUMMARY | 2018-03-03 09:04 | XMS REPORT ---
:1990 Author Organization eClinicalWorks Care Team Providers Name Role Phone Andreas Benton Provider Role Unavailable Encounters Encounter Location Date LETTER NEEDED Andreas Benton MD [facility] October 09, 2013 Unknown Andreas Benton MD [facility] October 21, 2013 Unknown Andreas Benton MD [facility] November 01, 2013 seizure Andreas Benton MD [facility] December 05, 2013 refill Andreas Benton MD [facility] Aug 05, 2013 Unknown Andreas Benton MD [facility] Feb 07, 2014 Refill Andreas Benton MD [facility] September 04, 2013 DRY SOCKET Andreas Benton MD [facility] Feb 12, 2014 Refill Andreas Benton MD [facility] October 07, 2013 MEDS Andreas Benton MD [facility] Jan 30, 2014 Unknown Andreas Benton MD [facility] January 07, 2014 Unknown Andreas Benton MD [facility] Feb 04, 2014 Problems Problem Type Condition [...] Problem anxiety disorder, generalized 300.02 Active Assessment ADD (attention deficit disorder) 314.00 [...] Date End Date Status Dosage Adderall MEDISPAN [address] 30 mg Orally BID Active 1 tablet -02 Social History Social History Element Qualifiers Date Reported Tobacco Use: . Are you a: former smoker quit 11/24/2013 Jan 30, 2014 Alcohol: . infrequently Jan 30, 2014 Summary Purpose eClinicalWorks Submission
--- OUTSIDE RECORDS SUMMARY | 2018-03-03 09:04 | XMS REPORT ---
[...] infection Problem Iron deficiency anemia 280.9 Active Assessment Anxiety 300.00 Active Problem ADD (attention deficit disorder) 314.00 Active Assessment Arthralgia of multiple sites 719.49 Active Problem Anemia, iron deficiency 280.9 Active Problem Arthralgia of multiple sites 719.49 Active Problem Anemia, chronic disease 285.29 Active Problem Syncope 780.2 Active Problem Orthostatic hypotension 458.0 Active Problem Hematochezia/ Hemorrhage of 569.3 Active rectum and anus Problem anxiety disorder, generalized 300.02 Active Assessment Anemia, iron deficiency 280.9 Active Problem Colitis, enteritis, and 009.1 Active gastroenteritis of presumed infectious origin Problem Impaired fasting glucose 790.21 Active Problem Allergic Reaction, unspecified 995.3 Active Problem arthritis, multiple sites 716.59 Active Problem Anemia Unspecified 285.9 Active Problem Rotator cuff (capsule) sprain 840.4 Active and strain Problem ADD 314.00 Active Medications Medication Code System Code Instructions Start Date End Date Status Dosage Bentyl MEDISPAN 133[address]-584 20MG Orally BID Active 1 tablet 0-52 as needed [place] MEDISPAN 20452-880 10-325 MG Orally Active 1 tablet 0-73 BID as needed Adderall MEDISPAN 85634-889 30 mg Orally BID Active 1 tablet 8-02 [facility] 93812-590 0.5 MG Orally BID Active 1 tablet 7-60 prn Social History Social History Element Qualifiers Date Reported Tobacco Use: . Are you a: former smoker quit 11/24/2013 Jan 30, 2014 Alcohol: . infrequently Jan 30, 2014 Vital Signs Date/Time: Jan 30, 2014 Weight 184 lbs Height 67 in Cardiac Monitoring Heart Rate 100 /min Blood Pressure Diastolic 70 mm Hg Blood Pressure Systolic 120 mm Hg Summary Purpose eClinicalWorks Submission
--- OUTSIDE RECORDS SUMMARY | 2018-03-03 09:04 | XMS REPORT ---
:1990 Author Organization eClinicalWorks Care Team Providers Name Role Phone Andreas Benton Provider Role Unavailable Encounters Encounter Location Date LETTER NEEDED Andreas Benton MD [facility] October 09, 2013 Unknown Andreas Benton MD [facility] October 21, 2013 Unknown Andreas Benton MD [facility] November 01, 2013 seizure Andreas Benton MD [facility] December 05, 2013 refill Andreas Benton MD [facility] Aug 05, 2013 Refill Andreas Benton MD [facility] September 04, 2013 Refill Andreas Benotn MD [facility] October 07, 2013 MEDSadaf Benton MD [facility] Jan 30, 2014 Unknown Andreas Benton MD [facility] January 07, 2014 Unknown Andreas Benton MD [facility] Feb 04, 2014 Unknown Andreas Benton MD [facility] Apr 08, 2014 Unknown Andreas Benton MD [facility] May 13, 2014 Unknown Andreas Benton MD [facility] Mar 06, 2014 medsadaf Benton MD [facility] Mar 17, 2014 Unknown Andreas Benton MD [facility] Feb 07, 2014 DRY SOCKET Andreas Benton MD [facility] Feb 12, 2014 Problems Problem Type Condition ICD-9 Code [...] Problem arthritis, multiple sites 716.59 Active Problem Allergic Reaction, unspecified 995.3 Active Problem Rotator cuff (capsule) sprain 840.4 Active and strain Problem Anemia Unspecified 285.9 Active Problem Impaired fasting glucose 790.21 Active Problem ADD 314.00 Active Medications Medication Code System Code Instructions Start Date End Date Status Dosage Adderall [facility] [address] 30 mg Orally BID Active 1 tablet -02 Social History Social History Element Qualifiers Date Reported Tobacco Use: . Are you a: former smoker quit 11/24/2013 Mar 17, 2014 Alcohol: . infrequently Mar 17, 2014 Summary Purpose eClinicalWorks Submission
--- OUTSIDE RECORDS SUMMARY | 2018-03-03 09:04 | XMS REPORT ---
:1990 Author Organization eClinicalWorks Care Team Providers Name Role Phone Andreas Benton Provider Role Unavailable Encounters Encounter Location Date LETTER NEEDED Andreas Benton MD [facility] October 09, 2013 Unknown Andreas Benton MD [facility] October 21, 2013 Unknown Andreas Benton MD [facility] November 01, 2013 seizure Andreas Benton MD [facility] December 05, 2013 refill Andreas Benton MD [facility] Aug 05, 2013 Refill Andreas Benton MD [facility] September 04, 2013 Refill Andreas Benton MD [facility] October 07, 2013 NBA Benton MD [facility] Jan 30, 2014 Unknown Andreas Benton MD [facility] September 05, 2014 add Andreas Benton MD [facility] Jul 14, 2014 Unknown Andreas Benton MD [facility] January 07, 2014 Unknown Andreas Benton MD [facility] Feb 04, 2014 Refill Andreas Benton MD [facility] May 15, 2014 Unknown Andreas Benton MD [facility] Jun 11, 2014 Unknown Andreas Benton MD [facility] Apr 08, 2014 Unknown Andreas Benton MD [facility] May 13, 2014 RIA Benton MD [facility] November 17, 2014 Unknown Andreas Benton MD [facility] Mar 06, 2014 Refill Andreas Benton MD [facility] December 16, 2014 nba Benton MD [facility] Mar 17, 2014 Unknown Andreas Benton MD [facility] Feb 07, 2014 DRY SOCKET Andreas Benton MD [facility] Feb 12, 2014 Refill Andreas Benton MD [facility] Aug 01, 2014 Problems Problem Type Condition ICD-9 Code [...] Start Date End Date Status Dosage Adderall [facility] [address] 30 mg Orally BID Active 1 tablet -02 Social History Social History Element Qualifiers Date Reported Tobacco Use: . Are you a: former smoker quit 11/24/2013 November 17, 2014 Alcohol: . infrequently November 17, 2014 Summary Purpose eClinicalWorks Submission
--- OUTSIDE RECORDS SUMMARY | 2018-03-03 09:04 | XMS REPORT ---
:1990 Author Organization eClinicalWorks Care Team Providers Name Role Phone Andreas Benton Provider Role Unavailable Encounters Encounter Location Date LETTER NEEDED Andreas Benton MD [facility] October 09, 2013 Unknown Andreas Benton MD [facility] October 21, 2013 Unknown Andreas Benton MD [facility] November 01, 2013 seizure Andreas Benton MD [facility] December 05, 2013 refill Andreas Benton MD [facility] Aug 05, 2013 Refill Andreas Benton MD [facility] September 04, 2013 Refill Andreas Benton MD [facility] October 07, 2013 MEDSadaf Benton MD [facility] Jan 30, 2014 Unknown Andreas Benton MD [facility] January 07, 2014 Unknown Andreas Benton MD [facility] Feb 04, 2014 Unknown Andreas Benton MD [facility] Apr 08, 2014 Unknown Andreas Benton MD [facility] Mar 06, 2014 medsadaf Benton MD [facility] Mar 17, 2014 Unknown Andreas Benton MD [facility] Feb 07, 2014 DRY SOCKET Andreas Benton MD [facility] Feb 12, 2014 Problems Problem Type Condition [...] Start Date End Date Status Dosage [facility] [address] 30 mg Orally BID Active 1 tablet -02 Social History Social History Element Qualifiers Date Reported Tobacco Use: . Are you a: former smoker quit 11/24/2013 Mar 17, 2014 Alcohol: . infrequently Mar 17, 2014 Summary Purpose eClinicalWorks Submission
--- OUTSIDE RECORDS SUMMARY | 2018-03-03 09:04 | XMS REPORT ---
:1990 Author Organization eClinicalWorks Care Team Providers Name Role Phone Andreas Benton Provider Role Unavailable Allergies, Adverse Reactions, Alerts Substance Reaction Event Type Tramadol seizures Drug Allergy NSAIDs stomach ulcers Non Drug Allergy latex Info Not Available Non Drug Allergy Encounters Encounter Location Date LETTER NEEDED Andreas Benton MD [facility] October 09, 2013 Unknown Andreas Benton MD [facility] October 21, 2013 Unknown Andreas Benton MD [facility] November 01, 2013 seizure Andreas Benton MD [facility] December 05, 2013 refill Andreas Benton MD [facility] Aug 05, 2013 Refill Andreas Benton MD [facility] September 04, 2013 Refill Andreas Benton MD [facility] October 07, 2013 MEDS Andreas Benton MD [facility] Jan 30, 2014 Unknown Andreas Benton MD [facility] January 07, 2014 Unknown Andreas Benton MD [facility] Feb 04, 2014 Unknown Andreas Benton MD [facility] Mar 06, 2014 medsadaf Benton MD [facility] Mar 17, 2014 Unknown Andreas Benton MD [facility] Feb 07, 2014 DRY SOCKET Andreas Benton MD [facility] Feb 12, 2014 Problems Problem Type [...] Instructions Start End Date Status Dosage Date Viibryd MEDISPAN 15619-512 10 & 20 & 40 MG Mar 17, Active as directed 0-31 Orally 2013 Ativan MEDISPAN 96164-748 0.5 MG Orally Active 1 tablet 3-01 BID-TID prn Adderall MEDISPAN 72640-852 30 mg Orally BID Active 1 tablet 8-02 [place] MEDISPAN 83429-202 10-325 MG Orally Active 1 tablet as 0-73 BID needed Bentyl MEDISPAN 56997-287 20MG Orally BID Active 1 tablet 0-52 as needed Social History Social History Element Qualifiers Date Reported Tobacco Use: . Are you a: former smoker quit 11/24/2013 Mar 17, 2014 Alcohol: . infrequently Mar 17, 2014 Family history Qualifier Description Comment Date Reported Other: hypertension Mar 17, 2014 Vital Signs Date/Time: Mar 17, 2014 Weight 177 lbs Height 67 in Cardiac Monitoring Heart Rate 100 /min Blood Pressure Diastolic 70 mm Hg Blood Pressure Systolic 126 mm Hg Summary Purpose eClinicalWorks Submission
--- OUTSIDE RECORDS SUMMARY | 2018-03-03 09:04 | XMS REPORT ---
:1990 Author Organization eClinicalWorks Care Team Providers Name Role Phone Andreas Benton Provider Role Unavailable Allergies, Adverse Reactions, Alerts Substance Reaction Event Type Tramadol seizures Drug Allergy NSAIDs stomach ulcers Non Drug Allergy latex Info Not Available Non Drug Allergy Encounters Encounter Location Date MEDS Andreas Benton MD [facility] Jan 30, 2014 Refill Andreas Benton MD [facility] May 15, 2014 Unknown Andreas Benton MD [facility] Jun 11, 2014 Unknown Andreas Benton MD [facility] Apr 08, 2014 Unknown Andreas Benton MD [facility] May 13, 2014 Unknown Andreas Benton MD [facility] Mar 06, 2014 meds Andreas Benton MD [facility] Mar 17, 2014 Unknown Andreas Benton MD [facility] Feb 07, 2014 DRY SOCKET Andreas Benton MD [facility] Feb 12, 2014 Refill Andreas Benton MD [facility] Aug 01, 2014 LETTER NEEDED Andreas Benton MD [facility] October 09, 2013 Unknown Andreas Benton MD [facility] October 21, 2013 Unknown Andreas Benton MD [facility] November 01, 2013 seizure Andreas Benton MD [facility] December 05, 2013 refill Andreas Benton MD [facility] Aug 05, 2013 Refill Andreas Benton MD [facility] September 04, 2013 Refill Andreas Benton MD [facility] October 07, 2013 Unknown Andreas Benton MD [facility] September 05, 2014 add Andreas Benton MD [facility] Jul 14, 2014 Unknown Andreas Benton MD [facility] January 07, 2014 Unknown Andreas Benton MD [facility] Feb 04, 2014 ADD Andreas Benton MD [facility] November 17, 2014 Refill Andreas Benton MD [facility] December 16, 2014 Refill Andreas Benton MD [facility] Jan 19, 2015 BACK PAIN Andreas Benton MD [facility] Jan 29, 2015 Problems Problem Type Condition ICD-9 Code Onset [...] Problem anxiety disorder, generalized 300.02 Active Assessment Low Back Pain 724.2 Active Problem Colitis, enteritis, and 009.1 Active gastroenteritis of presumed infectious origin Problem arthritis, multiple sites 716.59 Active Problem Allergic Reaction, unspecified 995.3 Active Problem Rotator cuff (capsule) sprain 840.4 Active and strain Problem Anemia Unspecified 285.9 Active Problem Impaired fasting glucose 790.21 Active Problem ADD 314.00 Active Medications Medication Code System Code Instructions Start End Date Status Dosage Date Adderall MEDISPAN 64305-82 30 mg Orally BID Active 1 tablet 68-02 Ferrous Sulfate MEDISPAN 45445-72 325 (65 Fe) MG Active 1 tablet 08-01 Orally Once a day Robaxin MEDISPAN 75903-56 500 mg Orally Jan 29, Active 1 tablet 29-63 TID prn spasm 2014 Acetaminophen-C MEDISPAN 99869-96 300-30 MG Orally Jan 29, Active 1 tablet odeine #3 50-01 every 6-8 hours 2014 as needed as needed for severe pain Ativan MEDISPAN 47606-85 0.5 MG Orally Active 1 tablet 63-01 BID prn Bentyl MEDISPAN 23591-12 20MG Orally BID Active 1 tablet 80-52 as needed Social History Social History Element Qualifiers Date Reported Tobacco Use: . Are you a: former smoker quit 11/24/2013 Jan 29, 2015 Alcohol: . infrequently Jan 29, 2015 Family history Qualifier Description Comment Date Reported Maternal Grandmother Comment not available Jan 29, 2015 Paternal Grandmother Comment not available Jan 29, 2015 Siblings Comment not available Jan 29, 2015 Maternal Grandfather Comment not available Jan 29, 2015 Children Comment not available Jan 29, 2015 Father Comment not available Jan 29, 2015 Paternal Grandfather Comment not available Jan 29, 2015 Mother Comment not available Jan 29, 2015 Other: hypertension Jan 29, 2015 Vital Signs Date/Time: Jan 29, 2015 Weight 161 lbs Height 67 in Cardiac Monitoring Heart Rate 84 /min Blood Pressure Diastolic 84 mm Hg Blood Pressure Systolic 141 mm Hg Summary Purpose eClinicalWorks Submission
--- OUTSIDE RECORDS SUMMARY | 2018-03-03 09:04 | XMS REPORT ---
[...] [facility] October 07, 2013 KATARZYNA Benton MD [facility] Jan 30, 2014 Unknown Andreas Benton MD [facility] January 07, 2014 Unknown Andreas Benton MD [facility] Feb 04, 2014 Refill Andreas Benton MD [facility] May 15, 2014 Unknown Andreas Benton MD [facility] Apr 08, 2014 Unknown Andreas Benton MD [facility] May 13, 2014 Unknown Andreas Benton MD [facility] Mar 06, 2014 medsadaf Benton MD [facility] Mar 17, 2014 Unknown Andreas Benton MD [facility] Feb 07, 2014 DRY SOCKET Andreas Benton MD [facility] Feb 12, 2014 Problems Problem Type [...] glucose 790.21 Active Problem ADD 314.00 Active Social History Social History Element Qualifiers Date Reported Tobacco Use: . Are you a: former smoker quit 11/24/2013 Mar 17, 2014 Alcohol: . infrequently Mar 17, 2014 Summary Purpose eClinicalWorks Submission
--- OUTSIDE RECORDS SUMMARY | 2018-03-03 09:04 | XMS REPORT ---
:1990 Author Organization eClinicalWorks Care Team Providers Name Role Phone Andreas Benton Provider Role Unavailable Encounters Encounter Location Date LETTER NEEDED Andreas Benton MD [facility] October 09, 2013 Unknown Andreas Benton MD [facility] October 21, 2013 Unknown Andreas Benton MD [facility] November 01, 2013 seizure Andreas Benton MD [facility] December 05, 2013 refill Andreas Benton MD [facility] Aug 05, 2013 Refill Andreas Benton MD [facility] September 04, 2013 Refill Andreas Benton MD [facility] October 07, 2013 MEDSadaf Benton MD [facility] Jan 30, 2014 add Andreas Benton MD [facility] Jul 14, 2014 Unknown Andreas Benton MD [facility] January 07, 2014 Unknown Andreas Benton MD [facility] Feb 04, 2014 Refill Andresa Benton MD [facility] May 15, 2014 Unknown Andreas Benton MD [facility] Jun 11, 2014 Unknown Andreas Benton MD [facility] Apr 08, 2014 Unknown Andreas Benton MD [facility] May 13, 2014 Unknown Andreas Benton MD [facility] Mar 06, 2014 medsadaf Benton MD [facility] Mar 17, 2014 Unknown Andreas Benton MD [facility] Feb 07, 2014 DRY SOCKET Andreas Benton MD [facility] Feb 12, 2014 Refill Andreas Benton MD [facility] Aug 01, 2014 Problems Problem Type Condition [...]
--- OUTSIDE RECORDS SUMMARY | 2018-03-03 09:04 | XMS REPORT ---
:1990 Author Organization eClinicalWorks Care Team Providers Name Role Phone Andreas Benton Provider Role Unavailable Encounters Encounter Location Date LETTER NEEDED Andreas Benton MD [facility] October 09, 2013 Unknown Andreas Benton MD [facility] October 21, 2013 Unknown Andreas Benton MD [facility] November 01, 2013 seizure Andreas Benton MD [facility] December 05, 2013 refill Andreas Benton MD [facility] Aug 05, 2013 Refill Andreas Benton MD [facility] September 04, 2013 Refill Andreas Benton MD [facility] October 07, 2013 MEDSadaf Benton MD [facility] Jan 30, 2014 Unknown Andreas Benton MD [facility] January 07, 2014 Unknown Andreas Benton MD [facility] Feb 04, 2014 Unknown Andreas Benton MD [facility] Mar 06, 2014 medsadaf Benton MD [facility] Mar 17, 2014 Unknown Andreas Benton MD [facility] Feb 07, 2014 DRY SOCKET Andreas Benton MD [facility] Feb 12, 2014 Problems Problem Type Condition [...] Date End Date Status Dosage Adderall MEDISPAN [address] 30 mg Orally BID Active 1 tablet -02 Social History Social History Element Qualifiers Date Reported Tobacco Use: . Are you a: former smoker quit 11/24/2013 Mar 17, 2014 Alcohol: . infrequently Mar 17, 2014 Family history Qualifier Description Comment Date Reported Other: hypertension Mar 17, 2014 Summary Purpose eClinicalWorks Submission
--- OUTSIDE RECORDS SUMMARY | 2018-03-03 09:04 | XMS REPORT ---
:1990 Author Organization eClinicalWorks Care Team Providers Name Role Phone Andreas Benton Provider Role Unavailable Encounters Encounter Location Date LETTER NEEDED Andreas Benton MD [facility] October 09, 2013 Unknown Andreas Benton MD [facility] October 21, 2013 Unknown Andreas Benton MD [facility] November 01, 2013 seizure Andreas Benton MD [facility] December 05, 2013 refill Andreas Benton MD [facility] Aug 05, 2013 Refill Andreas Benton MD [facility] September 04, 2013 Refill Andreas Benton MD [facility] October 07, 2013 KATARZYNA Benton MD [facility] Jan 30, 2014 Unknown Andreas Benton MD [facility] January 07, 2014 Unknown Andreas Benton MD [facility] Feb 04, 2014 Refill Andreas Benton MD [facility] May 15, 2014 Unknown Andreas Benton MD [facility] Jun 11, 2014 Unknown Andreas Benton MD [facility] Apr 08, 2014 Unknown Andreas Benton MD [facility] May 13, 2014 Unknown Andreas Benton MD [facility] Mar 06, 2014 medsadaf Benton MD [facility] Mar 17, 2014 Unknown Andreas Benton MD [facility] Feb 07, 2014 DRY SOCKET Andreas Benton MD [facility] Feb 12, 2014 Problems Problem Type Condition ICD-9 Code Onset Dates Condition Status Assessment ADD (attention deficit disorder) 314.00 Active Social History Social History Element Qualifiers Date Reported Tobacco Use: . Are you a: former smoker quit 11/24/2013 Mar 17, 2014 Alcohol: . infrequently Mar 17, 2014 Summary Purpose eClinicalWorks Submission
--- OUTSIDE RECORDS SUMMARY | 2018-03-03 09:05 | XMS REPORT ---
:1988 [facility] Team Providers Name Role Andreas Uribe Provider Role Unavailable Encounters Encounter Location Date MEDJack Benton MD [facility] Jan 30, 2014 Refill Andreas Benton MD [facility] May 15, 2014 Unknown Andreas Benton MD [facility] Jun 11, 2014 Unknown Andreas Benton MD [facility] Apr 08, 2014 Unknown Andreas Benton MD [facility] May 13, 2014 Unknown Andreas Benton MD [facility] Mar 06, 2014 nba Benton MD [facility] Mar 17, 2014 Unknown Andreas Benton MD [facility] Feb 07, 2014 DRY SOCKET Andreas Benton MD [facility] Feb 12, 2014 Refill Andreas Benton MD [facility] Aug 01, 2014 LETTER NEEDED Andreas Benton MD [facility] October 09, 2013 Unknown Andreas Benton MD [facility] October 21, 2013 Unknown Andreas Benton MD [facility] November 01, 2013 seizure Andreas Benton MD [facility] December 05, 2013 refill Andreas Benton MD [facility] Aug 05, 2013 Refill Andreas Benton MD [facility] September 04, 2013 Refill Andreas Benton MD [facility] October 07, 2013 Unknown Andreas Benton MD [facility] September 05, 2014 add Andreas Benton MD [facility] Jul 14, 2014 Unknown Andreas Benton MD [facility] January 07, 2014 Unknown Andreas Benton MD [facility] Feb 04, 2014 Refill Andreas Benton MD [facility] Feb 20, 2015 ADD Andreas Benton MD [facility] November 17, 2014 Refill Andreas Benton MD [facility] December 16, 2014 Refill Andreas Benton MD [facility] Jan 19, 2015 BACK PAIN Andreas Benton MD [facility] Jan 29, 2015 Problems Problem Type [...] Date End Date Status Dosage Adderall MEDISPAN [address] 30 mg Orally BID Active 1 tablet -02 Ativan MEDISPAN [address] 0.5 MG Orally BID Active 1 tablet -01 prn Social History Social History Element Qualifiers Date Reported Tobacco Use: . Are you a: former smoker quit 11/24/2013 Jan 29, 2015 Alcohol: . infrequently Jan 29, 2015 Summary Purpose eClinicalWorks Submission
--- OUTSIDE RECORDS SUMMARY | 2018-03-03 09:05 | XMS REPORT ---
:1990 Author Organization eClinicalWorks Care Team Providers Name Role Phone Andreas Benton Provider Role Unavailable Allergies, Adverse Reactions, Alerts Substance Reaction Event Type Tramadol seizures Drug Allergy NSAIDs stomach ulcers Non Drug Allergy latex Info Not Available Non Drug Allergy Encounters Encounter Location Date KATARZYNA Benton MD [facility] Jan 30, 2014 KATARZYNA Benton MD [facility] Aug 05, 2015 Refill Andreas Benton MD [facility] Jun 19, 2015 Refill Andreas Benton MD [facility] May 28, 2015 STICHES REMOVAL Andreas Benton MD [facility] October 02, 2015 Refill Andreas Benton MD [facility] May 15, 2014 JOCELYN/ MEDS Andreas Benton MD [facility] October 30, 2015 Unknown Andreas Benton MD [facility] Jun 11, 2014 Refill Andreas Benton MD [facility] August 12, 2015 Unknown Andreas Benton MD [facility] Apr 08, 2014 BLOOD LOW/ PASSING OUT Andreas Benton MD [facility] September 16, 2015 Unknown Andreas Benton MD [facility] May 13, 2014 Unknown Andreas Benton MD [facility] Mar 06, 2014 meds Andreas Benton MD [facility] Mar 17, 2014 Unknown Andreas Benton MD [facility] Feb 07, 2014 DRY SOCKET Andreas Benton MD [facility] Feb 12, 2014 Refill Andreas Benton MD [facility] Aug 01, 2014 LETTER NEEDED Andreas Benton MD [facility] October 09, 2013 Unknown Andreas Benton MD [facility] October 21, 2013 Unknown Andreas Benton MD [facility] November 01, 2013 seizure Andreas Benton MD [facility] December 05, 2013 refill Andreas Benton MD [facility] Aug 05, 2013 Refill Andreas Benton MD [facility] September 04, 2013 Refill Andreas Benton MD [facility] October 07, 2013 Unknown Andreas Benton MD [facility] September 05, 2014 larry Benton MD [facility] Jul 14, 2014 Unknown Andreas Benton MD [facility] January 07, 2014 Unknown Andreas Benton MD [facility] Feb 04, 2014 Refill Andreas Benton MD [facility] Feb 20, 2015 adderall Andreas Benton MD [facility] Mar 19, 2015 MEDS. Andreas Benton MD [facility] Apr 23, 2015 Refill Andreas Benton MD [facility] May 22, 2015 LARRY Benton MD [facility] November 17, 2014 Refill Andreas Benton MD [facility] December 16, 2014 Refill Andreas Benton MD [facility] Jan 19, 2015 BACK PAIN Andreas Benton MD [facility] Jan 29, 2015 Problems Problem Type Condition ICD-9 Code Onset Dates Condition Status Assessment Acute bronchitis J20.9 Active Problem Rotator cuff (capsule) sprain 840.4 Active and strain Assessment ADD (attention deficit disorder) F90.0 Active Assessment BMI 28.0-28.9,adult Z68.28 Active Problem BMI 28.0-28.9,adult Z68.28 Active Problem ADD (attention deficit disorder) F90.0 Active Problem Acute bronchitis J20.9 Active Problem Iron deficiency anemia 280.9 Active Problem Upper respiratory tract 465.9 Active infection Problem Anxiety F41.9 Active Problem Anemia, iron deficiency 280.9 Active Medications Medication Code System Code Instructions Start End Status Dosage Date Date Ferrous Sulfate MEDISPAN 58543-66 325 (65 Fe) MG Active 1 tablet 08-01 Orally Once a day Ativan MEDISPAN 26305-58 0.5 MG Orally Active 1 tablet 63-01 BID prn Ciprofloxacin HCl MEDISPAN 63357-93 500 mg Orally October 29November 08, Active 1 tablet 37-01 Twice a day 2015 2015 Adderall MEDISPAN 95969-95 30 mg Orally BID Active 1 tablet 68-02 Social History Social History Element Qualifiers Date Reported Tobacco Use: . Are you a: current smoker October 30, 2015 Alcohol: . infrequently October 30, 2015 Family history Qualifier Description Comment Date Reported Maternal Grandmother Comment not available October 30, 2015 Paternal Grandmother Comment not available October 30, 2015 Siblings Comment not available October 30, 2015 Maternal Grandfather Comment not available October 30, 2015 Children Comment not available October 30, 2015 Father alive Comment not available October 30, 2015 Paternal Grandfather Comment not available October 30, 2015 Mother alive Comment not available October 30, 2015 Other: hypertension October 30, 2015 Vital Signs Date/Time: October 30, 2015 Weight 182 lbs Height 67 in Cardiac Monitoring Heart Rate 112 /min Blood Pressure Diastolic 85 mm Hg Blood Pressure Systolic 137 mm Hg Summary Purpose eClinicalWorks Submission
--- OUTSIDE RECORDS SUMMARY | 2018-03-03 09:05 | XMS REPORT ---
:1990 Author Organization eClinicalWorks Care Team Providers Name Role Phone Andreas Benton Provider Role Unavailable Allergies, Adverse Reactions, Alerts Substance Reaction Event Type Tramadol seizures Drug Allergy NSAIDs stomach ulcers Non Drug Allergy latex Info Not Available Non Drug Allergy Encounters Encounter Location Date MEDS Andreas Benton MD [facility] Jan 30, 2014 Refill Andreas Benton MD [facility] May 15, 2014 Unknown Andreas Benton MD [facility] Jun 11, 2014 Unknown Andreas Benton MD [facility] Apr 08, 2014 Unknown Andreas Benton MD [facility] May 13, 2014 Unknown Andreas Benton MD [facility] Mar 06, 2014 meds Andreas Benton MD [facility] Mar 17, 2014 Unknown Andreas Benton MD [facility] Feb 07, 2014 DRY SOCKET Andreas Benton MD [facility] Feb 12, 2014 Refill Andreas Benton MD [facility] Aug 01, 2014 LETTER NEEDED Andreas Benton MD [facility] October 09, 2013 Unknown Andreas Benton MD [facility] October 21, 2013 Unknown Andreas Benton MD [facility] November 01, 2013 seizure Andreas Benton MD [facility] December 05, 2013 refill Andreas Benton MD [facility] Aug 05, 2013 Refill Andreas Benton MD [facility] September 04, 2013 Refill Andreas Benton MD [facility] October 07, 2013 Unknown Andreas Benton MD [facility] September 05, 2014 add Andreas Benton MD [facility] Jul 14, 2014 Unknown Andreas Benton MD [facility] January 07, 2014 Unknown Andreas Benton MD [facility] Feb 04, 2014 Refill Andreas Benton MD [facility] Feb 20, 2015 adderalgiovanni Benton MD [facility] Mar 19, 2015 MEDS. Andreas Benton MD [facility] Apr 23, 2015 ADD Andreas Benton MD [facility] November 17, 2014 Refill Andreas Benton MD [facility] December 16, 2014 Refill Andreas Benton MD [facility] Jan 19, 2015 BACK PAIN Andreas Benton MD [facility] Jan 29, 2015 Problems Problem Type Condition ICD-9 Code Onset Dates Condition Status Problem Anxiety 300.00 Active Problem Arthralgia of multiple sites 719.49 Active Problem Anemia, chronic disease 285.29 Active Problem Anxiety F41.9 Active Problem Colitis, enteritis, and 009.1 Active gastroenteritis of presumed infectious origin Problem Anemia, iron deficiency 280.9 Active Assessment ADD (attention deficit disorder) F90.0 Active Assessment Anxiety F41.9 Active Problem ADD (attention deficit disorder) F90.0 Active Problem Syncope 780.2 Active Problem Orthostatic hypotension 458.0 Active Problem Iron deficiency anemia 280.9 Active Problem ADD (attention deficit disorder) 314.00 Active Problem Rotator cuff (capsule) sprain 840.4 Active and strain Problem Impaired fasting glucose 790.21 Active Problem Hematochezia/ Hemorrhage of 569.3 Active rectum and anus Problem anxiety disorder, generalized 300.02 Active Problem Anemia Unspecified 285.9 Active Problem ADD 314.00 Active Problem arthritis, multiple sites 716.59 Active Problem fibromyalgia, unspecified 729.1 Active myalgia and myositis Problem Allergic Reaction, unspecified 995.3 Active Problem Upper respiratory tract 465.9 Active infection Medications Medication Code System Code Instructions Start End Date Status Dosage Date Ativan MEDISPAN 82641-484 0.5 MG Orally Active 1 tablet 3-01 BID prn Ferrous Sulfate MEDISPAN 75795-256 325 (65 Fe) MG Active 1 tablet 8-01 Orally Once a day Adderall MEDISPAN 32320-500 30 mg Orally BID Active 1 tablet 8-02 Social History Social History Element Qualifiers Date Reported Tobacco Use: . Are you a: former smoker quit 11/24/2013 Apr 23, 2015 Alcohol: . infrequently Apr 23, 2015 Family history Qualifier Description Comment Date Reported Maternal Grandmother Comment not available Apr 23, 2015 Paternal Grandmother Comment not available Apr 23, 2015 Siblings Comment not available Apr 23, 2015 Maternal Grandfather Comment not available Apr 23, 2015 Children Comment not available Apr 23, 2015 Father Comment not available Apr 23, 2015 Paternal Grandfather Comment not available Apr 23, 2015 Mother Comment not available Apr 23, 2015 Other: hypertension Apr 23, 2015 Vital Signs Date/Time: Apr 23, 2015 Weight 166 lbs Height 67 in Cardiac Monitoring Heart Rate 96 /min Blood Pressure Diastolic 90 mm Hg Blood Pressure Systolic 148 mm Hg Summary Purpose eClinicalWorks Submission
--- OUTSIDE RECORDS SUMMARY | 2018-03-03 09:05 | XMS REPORT ---
:1988 [facility] Team Providers Name Role Andreas Uribe Provider Role Unavailable Encounters Encounter Location Date MEDS Andreas Benton MD [facility] Jan 30, 2014 Refill Andreas Benton MD [facility] Jun 19, 2015 Refill Andreas Benton MD [facility] May 28, [address] [facility] May 15, 2014 Unknown Andreas Benton MD [facility] Jun 11, 2014 Unknown Andreas Benton MD [facility] Apr 08, 2014 Unknown Andreas Benton MD [facility] May 13, 2014 Unknown Andreas Benton MD [facility] Mar 06, 2014 meds Andreas Benton MD [facility] Mar 17, 2014 Unknown Andreas Benton MD [facility] Feb 07, 2014 DRY SOCKET Andreas Benton MD [facility] Feb 12, 2014 Refill Andreas Benton MD [facility] Aug 01, 2014 LETTER NEEDED Andreas Benton MD [facility] October 09, 2013 Unknown Andreas Benton MD [facility] October 21, 2013 Unknown Andreas Benton MD [facility] November 01, 2013 seizure Andreas Benton MD [facility] December 05, 2013 refill Andreas Benton MD [facility] Aug 05, 2013 Refill Andreas Benton MD [facility] September 04, 2013 Refill Andreas Benton MD [facility] October 07, 2013 Unknown Andreas Benton MD [facility] September 05, 2014 add Andreas Benton MD [facility] Jul 14, 2014 Unknown Andreas Benton MD [facility] January 07, 2014 Unknown Andreas Benton MD [facility] Feb 04, 2014 Refill Andreas Benton MD [facility] Feb 20, [email or web address] [facility] Mar 19, 2015 MEDS. Andreas Benton MD [facility] Apr 23, 2015 Refill Andreas Benton MD [facility] May 22, 2015 ADD Andreas Benton MD [facility] November 17, 2014 Refill Andreas Benton MD [facility] December 16, 2014 Refill Andreas Benton MD [facility] Jan 19, 2015 BACK PAIN Andreas Benton MD [facility] Jan 29, 2015 Problems Problem Type Condition ICD-9 Code Onset Dates Condition Status Problem Anxiety 300.00 Active Problem Arthralgia of multiple sites 719.49 Active Problem Anemia, chronic disease 285.29 Active Problem Anxiety F41.9 Active Problem Colitis, enteritis, and 009.1 Active gastroenteritis of presumed infectious origin Problem Anemia, iron deficiency 280.9 Active Assessment ADD (attention deficit disorder) F90.0 Active Problem ADD (attention deficit disorder) F90.0 [...] End Date Status Dosage Adderall [facility] [address] 30 mg Orally BID Active 1 tablet -02 Social History Social History Element Qualifiers Date Reported Tobacco Use: . Are you a: former smoker quit 11/24/2013 Apr 23, 2015 Alcohol: . infrequently Apr 23, 2015 Summary Purpose eClinicalWorks Submission
--- OUTSIDE RECORDS SUMMARY | 2018-03-03 09:05 | XMS REPORT ---
:1988 [facility] Providers Name Role Andreas Uribe Provider Role Unavailable Encounters Encounter Location Date KATARZYNA Benton MD [facility] Jan 30, 2014 MEDSadaf Benton MD [facility] Aug 05, 2015 Refill Andreas Benton MD [facility] Jun 19, 2015 Refill Andreas Benton MD [facility] May 28, 2015 STICHES REMOVAL Andreas Benton MD [facility] October 02, 2015 Refaparna Benton MD [facility] May 15, 2014 Unknown Andreas Benton MD [facility] Jun 11, 2014 Refaparna Benton MD [facility] August 12, 2015 Unknown Andreas Benton MD [facility] Apr 08, 2014 BLOOD LOW/ PASSING OUT Andreas Benton MD [facility] September 16, 2015 Unknown Andreas Benton MD [facility] May 13, 2014 Unknown Andreas Benton MD [facility] Mar 06, 2014 medsadaf Benton MD [facility] Mar 17, 2014 Unknown Andreas Betnon MD [facility] Feb 07, 2014 DRY SOCKET Andreas Benton MD [facility] Feb 12, 2014 Refill Andreas Benton MD [facility] Aug 01, 2014 LETTER NEEDED Andreas Benton MD [facility] October 09, 2013 Unknown Andreas Benton MD [facility] October 21, 2013 Unknown Andreas Benton MD [facility] November 01, 2013 seizure Andreas Benton MD [facility] December 05, 2013 refill Andreas eBnton MD [facility] Aug 05, 2013 Refill Andreas Benton MD [facility] September 04, 2013 Refill Andreas Benton MD [facility] October 07, 2013 Unknown Andreas Benton MD [facility] September 05, 2014 add Andreas Benton MD [facility] Jul 14, 2014 Unknown Andreas Benton MD [facility] January 07, 2014 Unknown Andreas Benton MD [facility] Feb 04, 2014 Refaparna Benton MD [facility] Feb 20, 2015 adderall Andreas Benton MD [facility] Mar 19, 2015 MEDS. Andreas Benton MD [facility] Apr 23, 2015 Refill Andreas Benton MD [facility] May 22, 2015 ADD Andreas Benton MD [facility] November 17, 2014 Refill Andreas Benton MD [facility] December 16, 2014 Refill Andreas Benton MD [facility] Jan 19, 2015 BACK PAIN Andreas Benton MD [facility] Jan 29, 2015 Problems Problem Type Condition ICD-9 Code Onset Dates Condition Status Problem ADD (attention deficit disorder) F90.0 Active Problem Anxiety F41.9 Active Problem BMI 28.0-28.9,adult Z68.28 Active Problem Upper respiratory tract 465.9 Active infection Problem Rotator cuff (capsule) sprain 840.4 Active and strain Problem Anemia, iron deficiency 280.9 Active Problem Iron deficiency anemia 280.9 Active Medications Medication Code System Code Instructions Start End Date Status Dosage Date Ferrous Sulfate MEDISPAN 75261-944 325 (65 Fe) MG Active 1 tablet 8-01 Orally Once a day Adderall MEDISPAN 60570-158 30 mg Orally BID Active 1 tablet 8-02 Ativan MEDISPAN 84119-325 0.5 MG Orally Active 1 tablet 3-01 BID prn Social History Social History Element Qualifiers Date Reported Tobacco Use: . Are you a: former smoker quit 11/24/2013 September 16, 2015 Alcohol: . infrequently September 16, 2015 Summary Purpose eClinicalWorks Submission
--- OUTSIDE RECORDS SUMMARY | 2018-03-03 09:05 | XMS REPORT ---
:1988 [facility] Providers Name Role Andreas Uribe Provider Role Unavailable Encounters Encounter Location Date NBA Benton MD [facility] Jan 30, 2014 NBA Benton MD [facility] Aug 05, 2015 Refaparna Benton MD [facility] Jun 19, 2015 Refaparna Benton MD [facility] May 28, 2015 Refaparna Benton MD [facility] May 15, 2014 Unknown Andreas Benton MD [facility] Jun 11, 2014 Refaparna Benton MD [facility] August 12, 2015 Unknown Andreas Benton MD [facility] Apr 08, 2014 Unknown Andreas Benton MD [facility] May 13, 2014 Unknown Andreas Benton MD [facility] Mar 06, 2014 nba Benton MD [facility] Mar 17, 2014 Unknown Andreas Benton MD [facility] Feb 07, 2014 DRY SOCKET Andreas Benton MD [facility] Feb 12, 2014 Refaparna Benton MD [facility] Aug 01, 2014 LETTER NEEDED Andreas Benton MD [facility] October 09, 2013 Unknown Andreas Benton MD [facility] October 21, 2013 Unknown Andreas Benton MD [facility] November 01, 2013 seizure Andreas Benton MD [facility] December 05, 2013 refaparna Benton MD [facility] Aug 05, 2013 Refaparna Benton MD [facility] September 04, 2013 Refaparna Benton MD [facility] October 07, 2013 Unknown Andreas Benton MD [facility] September 05, 2014 add Andreas Benton MD [facility] Jul 14, 2014 Unknown Andreas Benton MD [facility] January 07, 2014 Unknown Andreas Benton MD [facility] Feb 04, 2014 Refaparna Benton MD [facility] Feb 20, 2015 adderalgiovanni Benton MD [facility] Mar 19, 2015 MEDS. Andreas Benton MD [facility] Apr 23, 2015 Refill Andreas Benton MD [facility] May 22, 2015 ADD Andreas Benton MD [facility] November 17, 2014 Refill Andreas Benton MD [facility] December 16, 2014 Refill Andreas Benton MD [facility] Jan 19, 2015 BACK PAIN Andreas Benton MD [facility] Jan 29, 2015 Problems Problem Type Condition ICD-9 Code Onset Dates Condition Status Problem Anemia, chronic disease 285.29 Active Problem Orthostatic hypotension 458.0 Active Problem Arthralgia of multiple sites 719.49 Active Problem ADD (attention deficit disorder) F90.0 Active Problem Hematochezia/ Hemorrhage of 569.3 Active rectum and anus Problem Anxiety F41.9 Active Problem Colitis, enteritis, and 009.1 Active gastroenteritis of presumed infectious origin Assessment Anxiety F41.9 Active Problem BMI 28.0-28.9,adult Z68.28 Active Problem ADD (attention deficit disorder) 314.00 Active Problem Syncope 780.2 Active Problem Anemia, iron deficiency 280.9 Active Problem Iron deficiency anemia 280.9 Active Problem Impaired fasting glucose 790.21 Active Problem arthritis, multiple sites 716.59 Active Problem anxiety disorder, generalized 300.02 Active Problem Rotator cuff (capsule) sprain 840.4 Active and strain Problem ADD 314.00 Active Problem fibromyalgia, unspecified 729.1 Active myalgia and myositis Problem Allergic Reaction, unspecified 995.3 Active Problem Upper respiratory tract 465.9 Active infection Problem Anemia Unspecified 285.9 Active Problem Anxiety 300.00 Active Medications Medication Code System Code Instructions Start Date End Date Status D[facility] [address] 0.5 MG Orally BID Active 1 tablet -01 prn Social History Social History Element Qualifiers Date Reported Tobacco Use: . Are you a: former smoker quit 11/24/2013 Aug 05, 2015 Alcohol: . infrequently Aug 05, 2015 Summary Purpose eClinicalWorks Submission
--- OUTSIDE RECORDS SUMMARY | 2018-03-03 09:05 | XMS REPORT ---
:1990 [facility] Team Providers Name Role Andreas Uribe Provider Role Unavailable Encounters Encounter Location Date NBA Benton MD [facility] Jan 30, 2014 Refill Andreas Benton MD [facility] May 28, 2015 Refill Andreas Benton MD [facility] May 15, 2014 Unknown Andreas Benton MD [facility] Jun 11, 2014 Unknown Andreas Benton MD [facility] Apr 08, 2014 Unknown Andreas Benton MD [facility] May 13, 2014 Unknown Andreas Benton MD [facility] Mar 06, 2014 nba Benton MD [facility] Mar 17, 2014 Unknown Andreas Benton MD [facility] Feb 07, 2014 DRY SOCKET Andreas Benton MD [facility] Feb 12, 2014 Refill Andreas Benton MD [facility] Aug 01, 2014 LETTER NEEDED Andreas Benton MD [facility] October 09, 2013 Unknown Andreas Benton MD [facility] October 21, 2013 Unknown Andreas Benton MD [facility] November 01, 2013 seizure Andreas Benton MD [facility] December 05, 2013 refill Andreas Benton MD [facility] Aug 05, 2013 Refill Andreas Benton MD [facility] September 04, 2013 Refill Andreas Benton MD [facility] October 07, 2013 Unknown Andreas Benton MD [facility] September 05, 2014 add Andreas Benton MD [facility] Jul 14, 2014 Unknown Andreas Benton MD [facility] January 07, 2014 Unknown Andreas Benton MD [facility] Feb 04, 2014 Refill Andreas Benton MD [facility] Feb 20, 2015 adderalgiovanni Benton MD [facility] Mar 19, 2015 MEDS. Andreas Benton MD [facility] Apr 23, 2015 Refill Andreas Benton MD [facility] May 22, 2015 ADD Andreas Benton MD [facility] November 17, 2014 Refill Andreas Benton MD [facility] December 16, 2014 Refill Andreas Benton MD [facility] Jan 19, 2015 BACK PAIN Andreas Benton MD [facility] Jan 29, 2015 Problems Problem Type Condition ICD-9 Code Onset Dates Condition Status Problem Anxiety 300.00 Active Problem Arthralgia of multiple sites 719.49 Active Problem Anemia, chronic disease 285.29 Active Problem Anxiety F41.9 Active Problem Colitis, enteritis, and 009.1 Active gastroenteritis of presumed infectious origin Problem Anemia, iron deficiency 280.9 Active Assessment Anxiety F41.9 Active Problem ADD [...] Date End Date Status Dosage Ativan MEDISPAN [address] 0.5 MG Orally BID Active 1 tablet -01 prn Social History Social History Element Qualifiers Date Reported Tobacco Use: . Are you a: former smoker quit 11/24/2013 Apr 23, 2015 Alcohol: . infrequently Apr 23, 2015 Summary Purpose eClinicalWorks Submission
--- OUTSIDE RECORDS SUMMARY | 2018-03-03 09:05 | XMS REPORT ---
:1988 Author Organization eClinicalWorks Care Team Providers Name Role Phone Andreas Benton Provider Role Unavailable Allergies, Adverse Reactions, Alerts Substance Reaction Event Type Tramadol seizures Drug Allergy NSAIDs stomach ulcers Non Drug Allergy latex Info Not Available Non Drug Allergy Encounters Encounter Location Date KATARZYNA Benton MD [facility] Jan 30, 2014 MEDJack Benton MD [facility] Aug 05, 2015 Refill Andreas Benton MD [facility] Jun 19, 2015 Refill Andreas Benton MD [facility] May 28, 2015 Refill Andreas Benton MD [facility] May 15, 2014 Unknown Andreas Benton MD [facility] Jun 11, 2014 Refill Andreas Benton MD [facility] August 12, 2015 Unknown Andreas Benton MD [facility] Apr 08, 2014 BLOOD LOW/ PASSING OUT Andreas Benton MD [facility] September 16, 2015 Unknown Andreas Benton MD [facility] May 13, 2014 Unknown Andreas Benton MD [facility] Mar 06, 2014 meds Andreas Benton MD [facility] Mar 17, 2014 Unknown Andreas Benton MD [facility] Feb 07, 2014 DRY SOCKET Andreas Benton MD [facility] Feb 12, 2014 Refill Andreas Benton MD [facility] Aug 01, 2014 LETTER NEEDED Andreas Benton MD [facility] October 09, 2013 Unknown Andreas Benton MD [facility] October 21, 2013 Unknown Andreas Benton MD [facility] November 01, 2013 seizure Andreas Benton MD [facility] December 05, 2013 refill Andreas Benton MD [facility] Aug 05, 2013 Refill Andreas Benton MD [facility] September 04, 2013 Refill Andreas Benton MD [facility] October 07, 2013 Unknown Andreas Benton MD [facility] September 05, 2014 add Andreas Benton MD [facility] Jul 14, 2014 Unknown Andreas Benton MD [facility] January 07, 2014 Unknown Andreas Benton MD [facility] Feb 04, 2014 Refill Andreas Benton MD [facility] Feb 20, 2015 adderall Andreas Benton MD [facility] Mar 19, 2015 MEDS. Andreas Benton MD [facility] Apr 23, 2015 Refill Andreas Benton MD [facility] May 22, 2015 ADD Andreas Benton MD [facility] November 17, 2014 Refill Andreas Benton MD [facility] December 16, 2014 Refill Andreas Benton MD [facility] Jan 19, 2015 BACK PAIN Andreas Benton MD [facility] Jan 29, 2015 Problems Problem Type Condition ICD-9 Code Onset Dates Condition Status Assessment Anemia D64.9 Active Problem ADD (attention deficit disorder) F90.0 Active Problem Anxiety F41.9 Active Problem BMI 28.0-28.9,adult Z68.28 Active Problem Upper respiratory tract 465.9 Active infection Problem Rotator cuff (capsule) sprain 840.4 Active and strain Problem Anemia, iron deficiency 280.9 Active Problem Iron deficiency anemia 280.9 Active Medications Medication Code System Code Instructions Start End Date Status Dosage Date Adderall MEDISPAN 21415-992 30 mg Orally BID Active 1 tablet 8-02 Ativan MEDISPAN 71998-913 0.5 MG Orally Active 1 tablet 3-01 BID prn Ferrous Sulfate MEDISPAN 80527-134 325 (65 Fe) MG Active 1 tablet 8-01 Orally Once a day Social History Social History Element Qualifiers Date Reported Tobacco Use: . Are you a: former smoker quit 11/24/2013 September 16, 2015 Alcohol: . infrequently September 16, 2015 Family history Qualifier Description Comment Date Reported Maternal Grandmother Comment not available September 16, 2015 Paternal Grandmother Comment not available September 16, 2015 Siblings Comment not available September 16, 2015 Maternal Grandfather Comment not available September 16, 2015 Children Comment not available September 16, 2015 Father alive Comment not available September 16, 2015 Paternal Grandfather Comment not available September 16, 2015 Mother alive Comment not available September 16, 2015 Other: hypertension September 16, 2015 Vital Signs Date/Time: September 16, 2015 Weight 185 lbs Height 67 in Cardiac Monitoring Heart Rate 95 /min Blood Pressure Diastolic 88 mm Hg Blood Pressure Systolic 135 mm Hg Summary Purpose eClinicalWorks Submission
--- OUTSIDE RECORDS SUMMARY | 2018-03-03 09:05 | XMS REPORT ---
:1990 Author Organization eClinicalWorks Care Team Providers Name Role Phone Andreas Benton Provider Role Unavailable Allergies, Adverse Reactions, Alerts Substance Reaction Event Type Tramadol seizures Drug Allergy NSAIDs stomach ulcers Non Drug Allergy latex Info Not Available Non Drug Allergy Encounters Encounter Location Date KATARZYNA Benton MD [facility] Jan 30, 2014 MEDSadaf Benton MD [facility] Aug 05, 2015 Refill Andreas Benton MD [facility] Jun 19, 2015 Refill Andreas Benton MD [facility] May 28, 2015 Refaparna Benton MD [facility] May 15, 2014 Unknown Andreas Benton MD [facility] Jun 11, 2014 Unknown Andreas Benton MD [facility] Apr 08, 2014 Unknown Andreas Benton MD [facility] May 13, 2014 Unknown Andreas Benton MD [facility] Mar 06, 2014 medsadaf Benton MD [facility] Mar 17, 2014 Unknown Andreas Benton MD [facility] Feb 07, 2014 DRY SOCKET Andreas Benton MD [facility] Feb 12, 2014 Refaparna Benton MD [facility] Aug 01, 2014 LETTER NEEDED Andreas Benton MD [facility] October 09, 2013 Unknown Andreas Benton MD [facility] October 21, 2013 Unknown Andreas Benton MD [facility] November 01, 2013 seizure Andreas Benton MD [facility] December 05, 2013 refill Andreas Benton MD [facility] Aug 05, 2013 Refill Andreas Benton MD [facility] September 04, 2013 Refill Andreas Benton MD [facility] October 07, 2013 Unknown Andreas Benton MD [facility] September 05, 2014 add Andreas Benton MD [facility] Jul 14, 2014 Unknown Andreas Benton MD [facility] January 07, 2014 Unknown Andreas Benton MD [facility] Feb 04, 2014 Refill Andreas Benton MD [facility] Feb 20, 2015 adderall Andreas Benton MD [facility] Mar 19, 2015 MEDS. Andreas Benton MD [facility] Apr 23, 2015 Refill Andreas Benton MD [facility] May 22, 2015 ADD Andreas Benton MD [facility] November 17, 2014 Refill Andreas Benton MD [facility] December 16, 2014 Refill Andreas Benton MD [facility] Jan 19, 2015 BACK PAIN Andreas Benton MD [facility] Jan 29, 2015 Problems Problem Type Condition ICD-9 Code Onset Dates Condition Status Problem Upper respiratory tract 465.9 Active infection Assessment Anxiety F41.9 Active Problem Anxiety 300.00 Active Assessment ADD (attention deficit disorder) F90.0 Active Problem Anemia, chronic disease 285.29 Active Problem Orthostatic hypotension 458.0 Active Problem Arthralgia of multiple sites 719.49 Active Problem ADD (attention deficit disorder) F90.0 Active Problem Anxiety F41.9 Active Problem Hematochezia/ Hemorrhage of 569.3 Active rectum and anus Problem Colitis, enteritis, and 009.1 Active gastroenteritis of presumed infectious origin Problem BMI 28.0-28.9,adult Z68.28 Active Assessment BMI 28.0-28.9,adult Z68.28 Active Problem ADD (attention [...] Problem Allergic Reaction, unspecified 995.3 Active Problem Anemia Unspecified 285.9 Active Medications Medication Code System Code Instructions Start End Date Status Dosage Date Ativan MEDISPAN 76675-252 0.5 MG Orally Active 1 tablet 3-01 BID prn Adderall MEDISPAN 83103-755 30 mg Orally BID Active 1 tablet 8-02 Ferrous Sulfate MEDISPAN 03227-404 325 (65 Fe) MG Active 1 tablet 8-01 Orally Once a day Social History Social History Element Qualifiers Date Reported Tobacco Use: . Are you a: former smoker quit 11/24/2013 Aug 05, 2015 Alcohol: . infrequently Aug 05, 2015 Family history Qualifier Description Comment Date Reported Maternal Grandmother Comment not available Aug 05, 2015 Paternal Grandmother Comment not available Aug 05, 2015 Siblings Comment not available Aug 05, 2015 Maternal Grandfather Comment not available Aug 05, 2015 Children Comment not available Aug 05, 2015 Father alive Comment not available Aug 05, 2015 Paternal Grandfather Comment not available Aug 05, 2015 Mother alive Comment not available Aug 05, 2015 Other: hypertension Aug 05, 2015 Vital Signs Date/Time: Aug 05, 2015 Weight 179 lbs Height 67 in Cardiac Monitoring Heart Rate 95 /min Blood Pressure Diastolic 92 mm Hg Blood Pressure Systolic 139 mm Hg Summary Purpose eClinicalWorks Submission
--- OUTSIDE RECORDS SUMMARY | 2018-03-03 09:05 | XMS REPORT ---
:1990 [facility] Care Team Providers Name Role Andreas Uribe Provider Role Unavailable Encounters Encounter Location Date NBA Benton MD [facility] Jan 30, 2014 Refill Andreas Benton MD [facility] May 15, 2014 Unknown Andreas Benton MD [facility] Jun 11, 2014 Unknown Andreas Benton MD [facility] Apr 08, 2014 Unknown Andreas Benton MD [facility] May 13, 2014 Unknown Andreas Benton MD [facility] Mar 06, 2014 nba Benton MD [facility] Mar 17, 2014 Unknown Andreas Benton MD [facility] Feb 07, 2014 DRY SOCKET Andreas Benton MD [facility] Feb 12, 2014 Refill Andreas Benton MD [facility] Aug 01, 2014 LETTER NEEDED Andreas Benton MD [facility] October 09, 2013 Unknown Andreas Benton MD [facility] October 21, 2013 Unknown Andreas Benton MD [facility] November 01, 2013 seizure Andreas Benton MD [facility] December 05, 2013 refill Andreas Benton MD [facility] Aug 05, 2013 Refill Andreas Benton MD [facility] September 04, 2013 Refill Andreas Benton MD [facility] October 07, 2013 Unknown Andreas Benton MD [facility] September 05, 2014 add Andreas Benton MD [facility] Jul 14, 2014 Unknown Andreas Benton MD [facility] January 07, 2014 Unknown Andreas Benton MD [facility] Feb 04, 2014 Refill Andreas Benton MD [facility] Feb 20, 2015 [email or web address] Benton MD [facility] Mar 19, 2015 ANDRESS. Andreas Benton MD [facility] Apr 23, 2015 Refill Andreas Benton MD [facility] May 22, 2015 LARRY Benton MD [facility] November 17, 2014 Refill Andreas Benton MD [facility] December 16, 2014 Refill Andreas Benton MD [facility] Jan 19, 2015 BACK PAIN Andreas Benton MD [facility] Jan 29, 2015 Problems Problem [...] Start Date End Date Status Dosage Adderall [facility] [address] 30 mg Orally BID Active 1 tablet -02 Social History Social History Element Qualifiers Date Reported Tobacco Use: . Are you a: former smoker quit 11/24/2013 Apr 23, 2015 Alcohol: . infrequently Apr 23, 2015 Summary Purpose eClinicalWorks Submission
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
--- OUTSIDE RECORDS SUMMARY | 2018-03-03 09:06 | XMS REPORT ---
:1990 Author Organization eClinicalWorks Care Team Providers Name Role Phone Andreas Benton Provider Role Unavailable Encounters Encounter Location Date MEDS Andreas Benton MD [facility] Jan 30, 2014 MEDS Andreas Benton MD [facility] Aug 05, 2015 Refill Andreas Benton MD [facility] Jun 19, 2015 Refill Andreas Benton MD [facility] May 28, 2015 STICHES REMOVAL Andreas Benton MD [facility] October 02, 2015 Refill Andreas Benton MD [facility] May 15, 2014 JOCELYN/ MEDS Andreas Benton MD [facility] October 30, 2015 Unknown Andreas Benton MD [facility] Jun 11, 2014 Refill Andreas Benton MD [facility] August 12, 2015 Unknown Andreas Benton MD [facility] Apr 08, 2014 BLOOD LOW/ PASSING OUT Andreas Benton MD [facility] September 16, 2015 Unknown Andreas Benton MD [facility] May 13, 2014 HOSP FU/MED REFILLS Andreas Benton MD [facility] Apr 28, 2016 Unknown Andreas Benton MD [facility] Mar 06, 2014 medsadaf Benton MD [facility] Mar 17, 2014 Unknown Andreas Benton MD [facility] November 17, 2015 Unknown Andreas Benton MD [facility] Feb 07, 2014 F/U MEDS Andreas Benton MD [facility] Feb 08, 2016 DRY SOCKET Andreas Benton MD [facility] Feb 12, 2014 Refill Andreas Benton MD [facility] Aug 01, 2014 LETTER NEEDED Andreas Benton MD [facility] October 09, 2013 Unknown Andreas Benton MD [facility] October 21, 2013 Unknown Andreas Benton MD [facility] November 01, 2013 seizure Andreas Benton MD [facility] December 05, 2013 refill Andreas Benton MD [facility] Aug 05, 2013 Refill Andreas Benton MD [facility] September 04, 2013 Refill Andreas Benton MD [facility] October 07, 2013 Unknown Andreas Benton MD [facility] September 05, 2014 larry Benton MD [facility] Jul 14, 2014 refill-larryerall Andreas Benton MD [facility] Jun 08, 2016 Unknown Andreas Benton MD [facility] January 07, 2014 refill-dennis Benton MD [facility] May 10, 2016 Unknown Andreas Benton MD [facility] Feb 04, 2014 Refill Andreas Benton MD [facility] Jul 07, 2016 Refill Andreas Benton MD [facility] Feb 20, 2015 adderall Andreas Benton MD [facility] Mar 19, 2015 MEDS. Andreas Benton MD [facility] Apr 23, 2015 Refill Andreas Benton MD [facility] May 22, 2015 LARRY Benton MD [facility] November 17, 2014 Refill Andreas Benton MD [facility] December 16, 2014 Refill Andreas Benton MD [facility] Jan 19, 2015 BACK PAIN Andreas Benton MD [facility] Jan 29, 2015 Problems Problem Type Condition ICD-9 Code Onset Dates Condition Status Assessment ADD (attention deficit disorder) F90.0 Active Problem Upper respiratory tract 465.9 Active [...] Start Date End Date Status D[facility]age [facility] [address] 30 MG Orally BID Jul 08, Active 1 tablet -2016 Social History Social History Element Qualifiers Date Reported Tobacco Use: . Are you a: current smoker Apr 28, 2016 Alcohol: . infrequently Apr 28, 2016 Summary Purpose eClinicalWorks Submission
--- OUTSIDE RECORDS SUMMARY | 2018-03-03 09:06 | XMS REPORT ---
:1990 Author Organization eClinicalWorks Care Team Providers Name Role Phone Andreas Benton Provider Role Unavailable Allergies, Adverse Reactions, Alerts Substance Reaction Event Type Tramadol seizures Drug Allergy NSAIDs stomach ulcers Non Drug Allergy latex Info Not Available Non Drug Allergy Encounters Encounter Location Date NBA Benton MD [facility] Jan 30, 2014 NBA Benton MD [facility] Aug 05, 2015 Refill Andreas Benton MD [facility] Jun 19, 2015 Refill Andreas Benton MD [facility] May 28, 2015 STICHES REMOVAL Andreas Benton MD [facility] October 02, 2015 Refill Andreas Benton MD [facility] May 15, 2014 JOCELYN/ MEDS Andreas Benton MD [facility] October 30, 2015 Unknown Andreas Benton MD [facility] Jun 11, 2014 Refill Andreas Benton MD [facility] August 12, 2015 Unknown Andreas Benton MD [facility] Apr 08, 2014 BLOOD LOW/ PASSING OUT Andreas Benton MD [facility] September 16, 2015 Unknown Andreas Benton MD [facility] May 13, 2014 Unknown Andreas Benton MD [facility] Mar 06, 2014 nba Benton MD [facility] Mar 17, 2014 Unknown Andreas Benton MD [facility] November 17, 2015 Unknown Andreas Benton MD [facility] Feb 07, 2014 F/U MEDS Andreas Benton MD [facility] Feb 08, 2016 DRY SOCKET Andreas Benton MD [facility] Feb 12, 2014 Refill Andreas Benton MD [facility] Aug 01, 2014 LETTER NEEDED Andreas Benton MD [facility] October 09, 2013 Unknown Andreas Benton MD [facility] October 21, 2013 Unknown Andreas Benton MD [facility] November 01, 2013 seizure Andreas Benton MD [facility] December 05, 2013 refill Andreas Benton MD [facility] Aug 05, 2013 Refill Andreas Benton MD [facility] September 04, 2013 Refill Andreas Benton MD [facility] October 07, 2013 Unknown Andreas Benton MD [facility] September 05, 2014 larry Benton MD [facility] Jul 14, 2014 Unknown Andreas Benton MD [facility] January 07, 2014 Unknown Andreas Benton MD [facility] Feb 04, 2014 Refill Andreas Benton MD [facility] Feb 20, 2015 adderall Andreas Benton MD [facility] Mar 19, 2015 MEDS. Andreas Benton MD [facility] Apr 23, 2015 Refill Andresa Benton MD [facility] May 22, 2015 LARRY Benton MD [facility] November 17, 2014 Refill Andreas Benton MD [facility] December 16, 2014 Refill Andreas Benton MD [facility] Jan 19, 2015 BACK PAIN Andreas Benton MD [facility] Jan 29, 2015 Problems Problem Type Condition ICD-9 Code Onset Dates Condition Status Assessment Iron deficiency anemia 280.9 Active Problem Rotator cuff (capsule) sprain 840.4 Active and strain Assessment ADD (attention deficit disorder) F90.0 Active Problem BMI 28.0-28.9,adult Z68.28 Active Problem ADD (attention deficit disorder) F90.0 Active Problem Acute bronchitis J20.9 Active Problem Iron deficiency anemia 280.9 Active Problem Upper respiratory tract 465.9 Active infection Problem Anxiety F41.9 Active Problem Anemia, iron deficiency 280.9 Active Medications Medication Code System Code Instructions Start End Date Status Dosage Date Ferrous Sulfate MEDISPAN 52903-789 325 (65 Fe) MG Active 1 tablet 8-01 Orally Once a day Ativan MEDISPAN 17938-320 0.5 MG Orally Active 1 tablet 3-01 BID prn Adderall MEDISPAN 06479-341 30 mg Orally BID Active 1 tablet 8-02 Social History Social History Element Qualifiers Date Reported Tobacco Use: . Are you a: current smoker Feb 08, 2016 Alcohol: . infrequently Feb 08, 2016 Family history Qualifier Description Comment Date Reported Maternal Grandmother Comment not available Feb 08, 2016 Paternal Grandmother Comment not available Feb 08, 2016 Siblings Comment not available Feb 08, 2016 Maternal Grandfather Comment not available Feb 08, 2016 Children Comment not available Feb 08, 2016 Father alive Comment not available Feb 08, 2016 Paternal Grandfather Comment not available Feb 08, 2016 Mother alive Comment not available Feb 08, 2016 Other: hypertension Feb 08, 2016 Vital Signs Date/Time: Feb 08, 2016 Weight 179 lbs Height 67 in Cardiac Monitoring Heart Rate 93 /min Blood Pressure Diastolic 82 mm Hg Blood Pressure Systolic 134 mm Hg Summary Purpose eClinicalWorks Submission
--- OUTSIDE RECORDS SUMMARY | 2018-03-03 09:06 | XMS REPORT ---
:1990 Author Organization eClinicalWorks Care Team Providers Name Role Phone Andreas Benton Provider Role Unavailable Encounters Encounter Location Date MEDS Andreas Benton MD [facility] Jan 30, 2014 MEDS Andreas Benton MD [facility] Aug 05, 2015 Refill Andreas Benton MD [facility] Jun 19, 2015 Refill Andreas Benton MD [facility] May 28, 2015 STICHES REMOVAL Andreas Benton MD [facility] October 02, 2015 Refill Andreas Benton MD [facility] May 15, 2014 JOCELYN/ MEDS Andreas Benton MD [facility] October 30, 2015 Unknown Andreas Benton MD [facility] Jun 11, 2014 Refill Andreas Benton MD [facility] August 12, 2015 Unknown Andreas Benton MD [facility] Apr 08, 2014 BLOOD LOW/ PASSING OUT Andreas Benton MD [facility] September 16, 2015 Unknown Andreas Benton MD [facility] May 13, 2014 HOSP FU/MED REFILLS Andreas Benton MD [facility] Apr 28, 2016 Unknown Andreas Benton MD [facility] Mar 06, [address] [facility] Mar 17, 2014 Unknown Andreas Benton MD [facility] November 17, 2015 Unknown Andreas Benton MD [facility] Feb 07, 2014 F/U MEDS Andreas Benton MD [facility] Feb 08, 2016 DRY SOCKET Andreas Benton MD [facility] Feb 12, 2014 Refill Andreas Benton MD [facility] Aug 01, 2014 LETTER NEEDED Andreas Benton MD [facility] October 09, 2013 Unknown Andreas Benton MD [facility] October 21, 2013 Unknown Andreas Benton MD [facility] November 01, 2013 seizure Andreas Benton MD [facility] December 05, 2013 refill Andreas Benton MD [facility] Aug 05, 2013 Refill Andreas Benton MD [facility] September 04, 2013 Refill Andreas B[address] [facility] October 07, 2013 Unknown Andreas Benton MD [facility] September 05, 2014 add Andreas Benton MD [facility] Jul 14, 2014 Unknown Andreas Benton MD [facility] January 07, 2014 refill-dennis Benton MD [facility] May 10, 2016 Unknown Andreas B[address] MD [facility] Feb 04, 2014 Refill [address] B[address] [facility] Feb 20, 2015 adderall Andreas B[address] [facility] Mar 19, 2015 MEDS. Andreas Benton MD [facility] Apr 23, 2015 Refill Andreas Benton MD [facility] May 22, 2015 ADD Andreas B[address] MD [facility] November 17, 2014 Refill Andreas Benton [address] [facility] December 16, 2014 Refill [address] B[address] [facility] Jan 19, 2015 BACK PAIN Andreas Benton MD [facility] Jan 29, 2015 Problems [...] Start Date End Date Status [facility] [id number] 30 MG Orally BID May 10, Active 1 tablet -2015 Social History Social History Element Qualifiers Date Reported Tobacco Use: . Are you a: current smoker Apr 28, 2016 Alcohol: . infrequently Apr 28, 2016 Summary Purpose eClinicalWorks Submission
--- OUTSIDE RECORDS SUMMARY | 2018-03-03 09:06 | XMS REPORT ---
:1990 Author Organization eClinicalWorks Care Team Providers Name Role Andreas Uribe Provider Role Unavailable Encounters Encounter Location Date NBA Benton MD [facility] Jan 30, 2014 MEDJack Benton MD [facility] Aug 05, 2015 Refill Andreas Benton MD [facility] Jun 19, 2015 Refaparna Benton MD [facility] May 28, 2015 STICHES REMOVAL Andreas Benton MD [facility] October 02, 2015 Refaparna Benton MD [facility] May 15, 2014 JOCELYN/ NBA Benton MD [facility] October 30, 2015 Unknown Andreas Benton MD [facility] Jun 11, 2014 Refill Andreas Benton MD [facility] August 12, 2015 Unknown Andreas Benton MD [facility] Apr 08, 2014 BLOOD LOW/ PASSING OUT Andreas Benton MD [facility] September 16, 2015 Unknown Andreas Benton MD [facility] May 13, 2014 Unknown Andreas Benton MD [facility] Mar 06, 2014 nba Benton MD [facility] Mar 17, 2014 Unknown Andreas Benton MD [facility] November 17, 2015 Unknown Andreas Benton MD [facility] Feb 07, 2014 DRY SOCKET Andreas Benton MD [facility] Feb 12, 2014 Refill Andreas Benton MD [facility] Aug 01, 2014 LETTER NEEDED Andreas Benton MD [facility] October 09, 2013 Unknown Andreas Benton MD [facility] October 21, 2013 Unknown Andreas Benton MD [facility] November 01, 2013 seizure Andreas Benton MD [facility] December 05, 2013 refill Andreas Benton MD [facility] Aug 05, 2013 Refill Andreas Benton MD [facility] September 04, 2013 Refill Andreas Benton MD [facility] October 07, 2013 Unknown Andreas Benton MD [facility] September 05, 2014 add Andreas Benton MD [facility] Jul 14, 2014 Unknown Andreas Benton MD [facility] January 07, 2014 Unknown Andreas Benton MD [facility] Feb 04, 2014 Refill Andreas Benton MD [facility] Feb 20, 2015 adderall Andreas Benton MD [facility] Mar 19, 2015 MEDS. Andreas Benton MD [facility] Apr 23, 2015 Refill Andreas Benton MD [facility] May 22, 2015 ADD Andreas Benton MD [facility] November 17, 2014 Refill Andreas Benton MD [facility] December 16, 2014 Refill Andreas Benton MD [facility] Jan 19, 2015 BACK PAIN Andreas Benton MD [facility] Jan 29, 2015 Problems Problem Type Condition ICD-9 Code Onset Dates Condition Status Problem Rotator cuff (capsule) sprain 840.4 Active and strain Problem BMI 28.0-28.9,adult Z68.28 Active Problem ADD (attention deficit disorder) F90.0 Active Problem Acute bronchitis J20.9 Active Problem Iron deficiency anemia 280.9 Active Problem Upper respiratory tract 465.9 Active infection Problem Anxiety F41.9 Active Problem Anemia, iron deficiency 280.9 Active Medications Medication Code System Code Instructions Start Date End Date Status Dosage Ativan MEDISPAN [address] 0.5 MG Orally BID Active 1 tablet -01 prn Social History Social History Element Qualifiers Date Reported Tobacco Use: . Are you a: current smoker October 30, 2015 Alcohol: . infrequently October 30, 2015 Summary Purpose eClinicalWorks Submission
--- OUTSIDE RECORDS SUMMARY | 2018-03-03 09:06 | XMS REPORT ---
:1990 Author Organization eClinicalWorks Care Team Providers Name Role Phone Andreas Benton Provider Role Unavailable Encounters Encounter Location Date MEDS Andreas Benton MD [facility] Jan 30, 2014 MEDS Andreas Benton MD [facility] Aug 05, 2015 Refill Andreas Benton MD [facility] Jun 19, 2015 Refill Andreas Benton MD [facility] May 28, 2015 STICHES REMOVAL Andreas Benton MD [facility] October 02, 2015 Refill Andreas Benton MD [facility] May 15, 2014 JOCELYN/ MEDS Andreas Benton MD [facility] October 30, 2015 Unknown Andreas Benton MD [facility] Jun 11, 2014 Refill Andreas Benton MD [facility] August 12, 2015 Unknown Andreas Benton MD [facility] Apr 08, 2014 BLOOD LOW/ PASSING OUT Andreas Benton MD [facility] September 16, 2015 Unknown Andreas Benton MD [facility] May 13, 2014 HOSP FU/MED REFILLS Andreas Benton MD [facility] Apr 28, 2016 Unknown Andreas Benton MD [facility] Mar 06, 2014 medsadaf Benton MD [facility] Mar 17, 2014 Unknown Andreas Benton MD [facility] November 17, 2015 Unknown Andreas Benton MD [facility] Feb 07, 2014 F/U MEDS Andreas Benton MD [facility] Feb 08, 2016 DRY SOCKET Andreas Benton MD [facility] Feb 12, 2014 Refill Andreas Benton MD [facility] Aug 01, 2014 LETTER NEEDED Andreas Benton MD [facility] October 09, 2013 Unknown Andreas Benton MD [facility] October 21, 2013 Unknown Andreas Benton MD [facility] November 01, 2013 seizure Andreas Benton MD [facility] December 05, 2013 refill Andreas Benton MD [facility] Aug 05, 2013 Refill Andreas Benton MD [facility] September 04, 2013 Refill Andreas Benton MD [facility] October 07, 2013 Unknown Andreas Benton MD [facility] September 05, 2014 larry Benton MD [facility] Jul 14, 2014 refill-dennis Benton MD [facility] Jun 08, 2016 Unknown Andreas Benton MD [facility] January 07, 2014 refill-dennis Benton MD [facility] May 10, 2016 Unknown Andreas Benton MD [facility] Feb 04, 2014 MED REFILL Andreas Benton MD [facility] August 16, 2016 Refill Andreas Benton MD [facility] Jul 07, 2016 Refill Andreas Benton MD [facility] Feb 20, 2015 adderall Andreas Benton MD [facility] Mar 19, 2015 MEDS. Andreas Benton MD [facility] Apr 23, 2015 Refill Andreas Benton MD [facility] May 22, 2015 ADD Andreas Benton MD [facility] November 17, 2014 Refill Andreas Benton MD [facility] December 16, 2014 Refill Andreas Benton MD [facility] Jan 19, 2015 BACK PAIN Andreas Benton MD [facility] Jan 29, 2015 Problems Problem [...] End Date Status Dosage Date Adderall MEDISPAN 75[address]-136 30 MG Orally BID Jul 08, Active 1 tablet 01-11 Flexeril Unknown 0 10 MG Orally Active 1 tablet every 8 hours as needed for spasm Ferrous Sulfate MEDISPAN 62908-563 325 (65 Fe) MG Active 1 tablet 8-01 Orally Once a day Ativan MEDISPAN 83681-164 0.5 MG Orally Active 1 tablet 3-01 BID prn Social History Social History Element Qualifiers Date Reported Tobacco Use: . Are you a: current smoker Apr 28, 2016 Alcohol: . infrequently Apr 28, 2016 Summary Purpose eClinicalWorks Submission
--- OUTSIDE RECORDS SUMMARY | 2018-03-03 09:06 | XMS REPORT ---
:1990 [facility] Address [address] [place] [address] [address] [place] [address] Care Team Providers Name Role Phone FARRUKH VALIENTE Primary Care Provider Unavailable FARRUKH VALIENTE Unavailable Unavailable Problems This patient has [...] THC (test code=THC) POSITIVE Negative Comprehensive Metabolic [id number] 22:56:00 Test Item Value Reference Range Comments [...] mmol/L 7-16 code=AGAP) Estimated GFR (test >60 mL/min/1.73m2 eGFR (estimated Glomerular code=GFR) Filtration Rate) is an estimated value,calculated from the patient's serum creatinine using the MDRD equation.It is NOT the patient's actual GFR. The eGFR provides a more clinicallyuseful measure of kidney disease than serum creatinine alone.This calculation takes sex and race into account, if the informationis provided. If the race is not provided, and the patient isAfrican-Equatorial [place]inean, multiply by 1.212. If sex is not provided, and thepatient is female, multiply by 0.742. Results for patients <18 years ofage have not been validated by the MDRD study and should be interpretedwith caution.eGFR Result Interpretation:eGFR > or=60 is in the Normal RangeeGFR < 60 may mean kidney diseaseeGFR < 15 may mean kidney failureRanges recommended by the National Kidney Foundation,http://nkdep.nih .gov Alcohol/Ethanol, [id number] 22:56:00 Test Item Value Reference Range Comments Alcohol, Ethyl (test 0.25 g/dL 0.00-0.01 Intoxicated 0.080 g/dL or code=ETOH) more Urinalysis [id number] 22:54:00 Test Item Value Reference Range Comments Color (test code=COLOR) Daisha Yellow,Straw,Pl yellow Clarity (test code=CLAR) Clear Clear Specific [place] (test 1.020 1.001-1.035 code=SPGR) pH (test code=PH) [...] Bacteria (test code=BACT) Few /HPF BHCG, Urine, [id number] 22:50:00 Test Item Value Reference Range Comments Preg Qual [Ur] (test code=HUHCG) Negative Negative CBC with [id number] 22:38:00 Test Item Value Reference Range Comments [...] Lymph Abs (test code=ALYMPH) 1.6 K/cumm 0.5-4.6 [place] Abs (test code=AMONO) 0.2 K/cumm 0.0-1.2 Eos Abs (test code=AEOS) 0.09 K/cumm 0.00-0.74 Baso Abs (test code=ABASO) 0.0 K/cumm 0.00-0.21
--- OUTSIDE RECORDS SUMMARY | 2018-03-03 09:06 | XMS REPORT ---
[...] [facility] Jul 14, 2014 refill-larryerall Andreas Benton MD [facility] Jun 08, 2016 Unknown Andreas Benton MD [facility] January 07, 2014 refill-dennis Benton MD [facility] May 10, 2016 Unknown Andreas Benton MD [facility] Feb 04, 2014 Refill [facility] Start Date End Date Status Dosage Adderall [facility] [address] 30 MG Orally BID Jun 09, Active 1 tablet -2015 Social History Social History Element Qualifiers Date Reported Tobacco Use: . Are you a: current smoker Apr 28, 2016 Alcohol: . infrequently Apr 28, 2016 Summary Purpose eClinicalWorks Submission
[2018-03-03] MEDS ORDERED: NA CHLORIDE 0.9% 1,000 ML ONE (10:33)
[2018-03-03] MEDS ORDERED: ONDANSETRON 4 MG/2 ML VIAL ONE ×2 (10:47→14:41)
[2018-03-03] MEDS ORDERED: MORPHINE 4 MG/ML SYR ONE (10:47)
[2018-03-03 10:48] LABS: Absolute Lymphocytes (CBC) 0.9 K/uL (0.7-4.9); Absolute Monocytes 0.4 K/uL (0.1-1.3); Absolute Neutrophil 2.6 K/uL (1.8-8.0); Basophils % 0.9 % (0-1.3); Eosinophils % 3.2 % (0-4.4); Hematocrit 35.5 % (36.0-45.0); Lymphocytes % 22.2 % (15.3-44.8); MCH 25.7 pg (27.0-35.0); MCV 80.2 fL (80-100); MPV 6.9 fL (7.6-11.3); Monocytes % 9.2 % (3.3-12.3); RBC Red Blood Cell Count 4.42 M/uL (3.86-4.86)
[2018-03-03 10:51] LABS: Protime INR 0.91
[2018-03-03 10:55] LABS: Urine Bacteria <20 /HPF (<20); Urine Culture Reflex Order NOT NEEDED; Urine RBC <5 /HPF (NONE SEEN)
[2018-03-03 11:04] LABS: Albumin 3.6 g/dL (3.4-5.0); Bilirubin Direct 0.2 mg/dL (0-0.2); Bilirubin Total 0.3 mg/dL (0.2-1.0); Protein, Total 7.3 g/dL (6.4-8.2)
[2018-03-03 11:18] LABS: Anisocytosis 1+; Blood Morphology Comment NOTED (NOT SEEN); Platelet Estimate ADEQ; Urine White Blood Cell Casts OK
--- NOTE | 2018-03-03 14:30 | EDPHYS ---
Physician Documentation [facility] Name: Shae Dockery Age: 28 yrs Sex: Female : 1990 Arrival Date: 03/03/2018 Time: 08:52 Bed 5 Private MD: None, None ED Physician Alex Velazquez HPI: 03/03 11:00 This 28 yrs old Female presents to ER via Ambulatory with complaints of pm1 Abdominal Pain, Bloody Stools. 11:00 The patient presents with abdominal pain in the upper abdomen. Onset: The pm1 symptoms/episode began/occurred 3 week(s) ago. The symptoms do not radiate. Associated signs and symptoms: Pertinent positives: blood in stools, vomiting blood, Pertinent negatives: chest pain, constipation, diarrhea, dysuria, fever, headache, shortness of breath. The symptoms are described as achy. Modifying factors: The symptoms are alleviated by nothing, the symptoms are aggravated by nothing. Severity of pain: in the emergency department the pain is unchanged. The patient has experienced similar episodes in the past, multiple times. The patient has been recently seen by a physician: ER in [place]. Diagnosed with mild pancreatitis and discharged home. Historical: - Allergies: 09:09 Ibuprofen (Upset stomach); ss 09:09 Latex, Natural Rubber (Anaphylaxis); ss 09:09 tramadol (Seizures); ss 09:09 Tylenol (Liver Issues); ss 09:09 Ultram; ss - PMHx: 09:09 ADD/ADHD; alcohol abuse; Anemia; Anxiety; Bipolar disorder; Cirrhosis; Crohn's; ss Depression; GI Bleed; Liver disease; multiple blood transfusions; pt trying to get on liver transplant list; Seizures; self harm; suicidal ideation; - PSHx: 09:09 Hernia repair; Gastric Bypass; Tonsillectomy; Cholecystectomy; ss - Immunization history:: Adult Immunizations up to date. - Social history:: Smoking status: Patient/guardian denies using tobacco, but has a distant history of tobacco abuse. - Ebola Screening: : Patient denies exposure to infectious person Patient denies travel to an Ebola-affected area in the 21 days before illness onset. ROS: 11:00 Constitutional: Negative for fever, chills, and weight loss, Eyes: Negative for injury, pm1 pain, redness, and discharge, ENT: Negative for injury, pain, and discharge, Neck: Negative for injury, pain, and swelling, Cardiovascular: Negative for chest pain, palpitations, and edema, Respiratory: Negative for shortness of breath, cough, wheezing, and pleuritic chest pain. 11:00 Back: Negative for injury and pain, : Negative for injury, bleeding, discharge, and swelling, MS/Extremity: Negative for injury and deformity, Skin: Negative for injury, rash, and discoloration, Neuro: Negative for headache, weakness, numbness, tingling, and seizure. 11:00 Abdomen/GI: Positive for abdominal pain, hematemesis, rectal bleeding, Negative for diarrhea. Exam: 11:00 Constitutional: This is a well developed, well nourished patient who is awake, alert, pm1 and in no acute distress. Head/Face: Normocephalic, atraumatic. Eyes: Pupils equal round and reactive to light, extra-ocular motions intact. Lids and lashes normal. Conjunctiva and sclera are non-icteric and not injected. Cornea within normal limits. Periorbital areas with no swelling, redness, or edema. ENT: Nares patent. No nasal discharge, no septal abnormalities noted. Tympanic membranes are normal and external auditory canals are clear. Oropharynx with no redness, swelling, or masses, exudates, or evidence of obstruction, uvula midline. Mucous membranes moist. Neck: Trachea midline, no thyromegaly or masses palpated, and no cervical lymphadenopathy. Supple, full range of motion without nuchal rigidity, or vertebral point tenderness. No Meningismus. Chest/axilla: Normal chest wall appearance and motion. Nontender with no deformity. No lesions are appreciated. Cardiovascular: Regular rate and rhythm with a normal S1 and S2. No gallops, murmurs, or rubs. Normal PMI, no JVD. No pulse deficits. Respiratory: Lungs have equal breath sounds bilaterally, clear to auscultation and percussion. No rales, rhonchi or wheezes noted. No increased work of breathing, no retractions or nasal flaring. 11:00 Back: No spinal tenderness. No costovertebral tenderness. Full range of motion. Skin: Warm, dry with normal turgor. Normal color with no rashes, no lesions, and no evidence of cellulitis. MS/ Extremity: Pulses equal, no cyanosis. Neurovascular intact. Full, normal range of motion. 11:00 Abdomen/GI: Inspection: abdomen appears normal, Bowel sounds: normal, Palpation: abdomen is soft and non-tender, mass, is not appreciated, rebound tenderness, is not appreciated. 11:00 Neuro: Orientation: is normal, Motor: is normal, Gait: is steady, at a normal pace, without difficulty. Vital Signs: 09:09 BP 134 / 91; Pulse 86; Resp 15; Temp 97.2(TE); Pulse Ox 97% on R/A; Weight 75.75 kg; ss Height 5 ft. 5 in. (165.10 cm); Pain 9/10; 10:52 BP 122 / 80; Pulse 71; Resp 16; Pulse Ox 97% ; sv 12:06 BP 127 / 60; Pulse 79; Resp 18; Pulse Ox 97% ; sv 13:18 BP 116 / 60; Pulse 79; Resp 16; Pulse Ox 96% ; sv 13:59 BP 116 / 60; Pulse 70; Resp 16; Pulse Ox 96% ; sv 14:47 BP 132 / 87; Pulse 66; Resp 16; Pulse Ox 97% ; sv 09:09 Body Mass Index 27.79 (75.75 kg, 165.10 cm) ss MDM: 10:04 Patient medically screened. shaun 13:46 ED course: Verbal report from radiologist: CT negative. pm1 14:28 Data reviewed: vital signs. Data interpreted: Pulse oximetry: on room air is 96 %. pm1 Interpretation: normal. Counseling: I had a detailed discussion with the patient and/or guardian regarding: the historical points, exam findings, and any diagnostic results supporting the discharge/admit diagnosis, lab results, radiology results, the need for outpatient follow up, to return to the emergency department if symptoms worsen or persist or if there are any questions or concerns that arise at home. 14:30 ED course: Patient without any vomiting or bloody bowel movement in the ER during ER pm1 visitation. VSS, CBC WNL. therefore I will discharge the patient home. 14:45 ED course: Patient requesting triamcinolone for fungal infection on her buttocks. Will pm1 provide patient with prescription. 03/03 10:21 Order name: Basic Metabolic Panel; Complete Time: 12:04 pm1 03/03 10:21 Order name: CBC with Diff; Complete Time: 12:04 pm1 03/03 10:21 Order name: Hepatic Function; Complete Time: 12:04 pm1 03/03 10:21 Order name: Lipase; Complete Time: 12:04 pm1 03/03 10:21 Order name: ETOH Level; Complete Time: 12:04 pm1 03/03 10:21 Order name: PT-INR; Complete Time: 12:04 pm1 03/03 10:21 Order name: CT Abd/Pelvis - W/Contrast pm1 03/03 10:21 Order name: Ptt, Activated; Complete Time: 12:04 pm1 03/03 10:21 Order name: Urine Microscopic Only; Complete Time: 12:04 pm1 03/03 10:47 Order name: Urine Dipstick--Ancillary (enter results) eb 03/03 10:47 Order name: Urine --Ancillary (enter results) eb 03/03 10:50 Order name: CBC Smear Scan; Complete Time: 12:04 EDMS 03/03 10:21 Order name: IV Saline Lock; Complete Time: 10:50 pm1 03/03 10:21 Order name: Labs collected and sent; Complete Time: 10:50 pm1 03/03 10:21 Order name: Urine Dipstick-Ancillary (obtain specimen); Complete Time: 10:30 pm1 03/03 10:21 Order name: Urine Test (obtain specimen); Complete Time: 10:30 pm1 Administered Medications: 10:45 Drug: NS 0.9% 1000 ml Route: IV; Rate: 1000 ml; Site: right antecubital; sv 12:08 Follow up: Response: No adverse reaction; IV Status: Completed infusion; IV Intake: sv 1000ml 10:45 Drug: Zofran 4 mg Route: IVP; Site: right antecubital; sv 11:00 Follow up: Response: No adverse reaction sv 10:47 Drug: morphine 2 mg Route: IVP; Site: right antecubital; sv 12:06 Follow up: Response: No adverse reaction sv 12:41 Drug: morphine 2 mg Route: IVP; Site: right antecubital; sg 13:00 Follow up: Response: No adverse reaction sv 14:42 Drug: Zofran 4 mg Route: IVP; Site: right antecubital; sv 14:46 Follow up: Response: No adverse reaction sv 14:44 Drug: fentaNYL (PF) 25 mcg Route: IVP; Site: right antecubital; sv 14:46 Follow up: Response: No adverse reaction sv Disposition: 03/04 12:17 Co-signature as Attending Physician, Alex Velazquez MD I agree with the assessment and [facility] plan of care. Disposition: 03/03/18 14:30 Discharged to Home. Impression: Unspecified abdominal pain. - Condition is Stable. - Discharge Instructions: Abdominal Pain, Adult. - Prescriptions for Bentyl 20 mg Oral Tablet - take 1 tablet by ORAL route every 6 hours As needed; 20 tablet. Zofran 4 mg Oral Tablet - take 1 tablet by ORAL route every 12 hours As needed; 20 tablet. Nystatin- Triamcinolone 100,000-0.1 unit/g-% Topical Cream - apply 1 application by TOPICAL route 2 times per day; 1 tube. - Medication Reconciliation Form, Thank You Letter, Antibiotic Education, Prescription Opioid Use form. - Follow up: Emergency Department; When: As needed; Reason: Worsening of condition. Follow up: Kendall Oliva MD; When: 2 - 3 days; Reason: Recheck today's complaints, Continuance of care, Re-evaluation by your physician. - Problem is new. - Symptoms have improved. Signatures: Dispatcher [employer] EDAnn Garcia RN RN sv Gay, Steven, RN RN sg Anderson, Corey, MD MD cha Smirch, Shelby, RN RN ss Marinas, Patrick, LETI ICT PROGRAMMER pm1 Corrections: (The following items were deleted from the chart) 03/03 14:49 14:30 03/03/2018 14:30 Discharged to Home. Impression: Unspecified abdominal pain. sv Condition is Stable. Forms are Medication Reconciliation Form, Thank You Letter, Antibiotic Education, Prescription Opioid Use. Follow up: Emergency Department; When: As needed; Reason: Worsening of condition. Follow up: Kendall Oliva; When: 2 - 3 days; Reason: Recheck today's complaints, Continuance of care, Re-evaluation by your physician. Problem is new. Symptoms have improved. pm1
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
[2018-03-03] MEDS ORDERED: FENTANYL CITR 100 MCG/2 ML ONE (14:41)
[2018-03-03 21:58] LABS: Urine Blood NEGATIVE (NEG); Urine Glucose NEGATIVE (NEG); Urine Protein 2+ (NEG); Urine pH 6.5 (5.0-7.0)
--- NOTE | 2018-03-04 09:29 | RAD REPORT ---
EXAM DESCRIPTION: CT - Abdomen Pelvis W Contrast - 03/03/2018 11:29 pm CLINICAL HISTORY: Abdominal pain with nausea. COMPARISON: September 2017 TECHNIQUE: Computed axial tomography of the abdomen pelvis was obtained. 100 cc Isovue-300 was admin istered intravenously. Oral contrast was given. Due to hospital technical malfunction a report could not be dictated yesterday. Preliminary report by me was given to the emergency room after completion of this exam All CT scans are performed using dose optimization technique as appropriate and may include automated exposure control or mA/KV adjustment according to patient size. FINDINGS: The liver is mildly enlarged. Fatty infiltration is present Postsurgical changes involve the stomach Spleen, pancreas, adrenal and kidneys appear unremarkable. There is no evidence of diverticulitis. The appendix is normal IMPRESSION: No acute abnormality is displayed.
== END 2018-03-03 14:49 | disposition home or self-care (01) ==
LOC: ER 08:51
DX: R10.10 Upper abdominal pain, unspecified (principal); Z88.6 Allergy status to analgesic agent; Z91.040 Latex allergy status
CPT/HCPCS: 36415; 74177; 80048; 80076; 80320; 81003; 81015; 81025; 83690; 85025; 85610; 85730; 96361; 96374; 96375; 99284; J2405; J3010; J7030; Q9967

== ENCOUNTER 2018-05-06 12:57 | Emergency (ER) | payer OTHER, SELFPAY ==
--- OUTSIDE RECORDS SUMMARY | 2018-05-06 13:00 | XMS REPORT | Clinical Summary ---
:1990 Author Organization [facility] Address [address] [place] [address] Care Team Providers Name Role Phone Andreas Benton MD Primary Care Provider Allergies Active Allergy Reactions Severity Noted Date Comments Latex 09/15/2015 Tramadol 09/15/2015 Medications Not on file Active Problems Not on file Social History Tobacco Use Types Packs/Day Years Used Date Current Every Day Smoker Alcohol Use Drinks/Week oz/Week Comments Yes occasionally Sex Assigned at Date Recorded Not on file Job Start Date Occupation Industry Not on file Not on file Not on file Travel History Travel Start Travel End No recent travel history available. Last Filed Vital Signs Not on file Plan of Treatment Not on file Results Not on fileafter 05/05/2017
--- OUTSIDE RECORDS SUMMARY | 2018-05-06 13:00 | XMS REPORT | Clinical Summary ---
:1990 Author Organization [employer] Address [address] [place] [address] Care Team Providers Name Role Phone Andreas Benton MD Primary Care Provider Allergies Active Allergy Reactions Severity Noted Date Comments Latex 07/07/2017 Nsaids (Non-Steroidal Anti-Inflammatory Drug) 07/07/2017 Tramadol 07/07/2017 Acetaminophen 07/07/2017 Medications Medication Sig Dispensed Refills Start Date End Date Status LORAZepam (ATIVAN) Take by mouth. 0 Active 1 MG tablet traZODone Take 150 mg by 0 Active (DESYREL) 100 MG mouth nightly tablet as needed for sleep. clindamycin Take by mouth. 0 02/04/2018 Discontinued (CLEOCIN) 150 MG capsule Active Problems Problem Noted [...] without complication, unspecified gastrointestinal tract location after 05/05/2017 Social History Tobacco Use Types Packs/Day Years Used Date Current Every Day Smoker Smokeless Tobacco: Never Used Alcohol Use Drinks/Week oz/Week Comments No Sex Assigned at Date Recorded Not on file Job Start Date Occupation Industry Not on file Not on file Not on file Travel History Travel Start Travel End No recent travel history available. Last Filed Vital Signs Vital Sign Reading [...] Health Maintenance Due Date Last Done Comments MMR VACCINES (1 of 1 - Standard 01/21/1989 series) VARICELLA VACCINES (1 of 2 - 2-dose 01/21/2001 adolescent series) CERVICAL CANCER SCREENING 01/21/2009 INFLUENZA VACCINE 01/10/2018 HEPATITIS B VACCINES Aged Out No longer eligible based on patient's age to complete this topic IPV VACCINES Aged Out No longer eligible based on patient's age to complete this topic MENINGOCOCCAL VACCINE Aged Out No longer eligible based on patient's age to complete this topic Procedures Procedure Name Priority Date/Time Associated Comments [...] BLOOD STAT 02/04/2018 5:44 CELLS AM CDT [place] CRITICAL CARE, E/M Routine 02/04/2018 1:49 Results [...] STAT 07/07/2017 1:14 Results for this AM [employer] procedure are in the results section. SALICYLATE LEVEL STAT 07/07/2017 1:14 Results for this AM [employer] procedure are in the results section. ACETAMINOPHEN LEVEL STAT 07/07/2017 1:14 Results for this AM [employer] procedure are in the results section. ALCOHOL LEVEL, BLOOD STAT 07/07/2017 1:14 Results for this AM [employer] procedure are in the results section. THYROID STIMULATING STAT 07/07/2017 1:14 Results for this HORMONE AM [employer] procedure are in the results section. T4, FREE STAT 07/07/2017 1:14 Results for this AM [employer] procedure are in the results section. COMPREHENSIVE METABOLIC STAT 07/07/2017 1:14 Results for this PANEL AM [employer] procedure are in the results section. HC COMPLETE BLD COUNT STAT 07/07/2017 1:14 Results for this W/AUTO DIFF AM [employer] procedure are in the results section. URINE DRUGS OF ABUSE STAT 07/07/2017 1:00 Results for this SCREEN AM [employer] procedure are in the results section. URINALYSIS SCREEN AND STAT 07/07/2017 1:00 Results for this MICROSCOPY, WITH REFLEX AM [employer] procedure are in TO CULTURE the results section. URINE CULTURE STAT 07/07/2017 1:00 Results for this AM [employer] procedure are in the results section. after 05/05/2017 Results Total iron binding capacity (02/04/2018 1:10 PM CDT) Iron level 28 (L) 37 - 148 ug/dL [facility] DEPARTMENT OF PATHOLOGY AND GENOMIC MEDICINE Iron binding capacity 439 271 - 474 ug/dL [facility] DEPARTMENT OF PATHOLOGY AND GENOMIC MEDICINE % Saturation 6.4 (L) 15.0 - 38.0 % [facility] DEPARTMENT OF PATHOLOGY AND GENOMIC MEDICINE Specimen Plasma specimen Performing Organization Address City/State/Zipcode Phone Number [facility] DEPARTMENT OF PATHOLOGY AND [place] [address] [employer] Estimated GFR (02/04/2018 12:45 PM CDT)Only the most recent of3 resultswithin the time period is included. GFR Non Af Amer >90 mL/min/1.73 m2 [facility] DEPARTMENT OF PATHOLOGY AND GENOMIC MEDICINE GFR Af Amer >90 mL/min/1.73 m2 [facility] DEPARTMENT OF Comment: PATHOLOGY AND GENOMIC Chronic [...] Americans. Specimen Plasma specimen Performing Organization Address City/State/Zipcode Phone Number [facility] DEPARTMENT OF PATHOLOGY AND [address] [place] [address] Troponin (02/04/2018 12:45 PM CDT)Only the most recent of3 resultswithin the time period is included. Troponin <0.30 0.00 - 0.30 ng/mL [facility] DEPARTMENT OF PATHOLOGY Comment: AND GENOMIC MEDICINE 0.11 - 1.49 ng/mlMay indicate increased risk of acute coronary syndrome. >=1.5 ng/mlConsistent with acute myocardial infarction. The diagnostic value of a single normal or non-diagnostic result is questionable.Serial samples at 2-6 hour intervals are required to rule out acute myocardial injury. Specimen Plasma specimen Performing Organization Address City/[facility] Centercode Phone Number [facility] DEPARTMENT OF PATHOLOGY AND [address] [place] [address] CBC with platelet and differential (02/04/2018 12:45 PM CDT)Only the most recent of3 resultswithin the time period is included. WBC 4.3 4.2 - 11.0 k/uL [facility] DEPARTMENT OF PATHOLOGY AND GENOMIC MEDICINE RBC 4.22 4.04 - 5.86 m/uL [facility] DEPARTMENT OF PATHOLOGY AND GENOMIC MEDICINE HGB 10.2 (L) 11.5 - 15.3 g/dL [facility] DEPARTMENT OF PATHOLOGY AND GENOMIC MEDICINE HCT 35.2 34.0 - 45.0 % [facility] DEPARTMENT OF PATHOLOGY AND GENOMIC MEDICINE MCV 83.4 80.0 - 98.0 fL [facility] DEPARTMENT OF PATHOLOGY AND GENOMIC MEDICINE MCH 24.2 (L) 27.0 - 34.0 pg [facility] DEPARTMENT OF PATHOLOGY AND GENOMIC MEDICINE MCHC 29.0 (L) 31.5 - 36.5 g/dL [facility] DEPARTMENT OF PATHOLOGY AND GENOMIC MEDICINE RDW - SD 51.1 (H) 37.0 - 51.0 fL [facility] DEPARTMENT OF PATHOLOGY AND GENOMIC MEDICINE MPV 8.3 7.4 - 10.4 fL [facility] DEPARTMENT OF PATHOLOGY AND GENOMIC MEDICINE Platelet count 120 (L) 150 - 400 k/uL [facility] DEPARTMENT OF PATHOLOGY AND GENOMIC MEDICINE Nucleated RBC 0.00 /100 WBC [facility] DEPARTMENT OF PATHOLOGY AND GENOMIC MEDICINE Neutrophils 55.7 36.0 - 66.0 % [facility] DEPARTMENT OF PATHOLOGY AND GENOMIC MEDICINE Lymphocytes 26.6 24.0 - 44.0 % [facility] DEPARTMENT OF PATHOLOGY AND GENOMIC MEDICINE Monocytes 13.7 (H) 0.0 - 6.0 % [facility] DEPARTMENT OF PATHOLOGY AND GENOMIC MEDICINE Eosinophils 1.4 0.0 - 6.0 % [facility] DEPARTMENT OF PATHOLOGY AND GENOMIC MEDICINE Basophils 0.7 0.0 - 1.2 % [facility] DEPARTMENT OF PATHOLOGY AND GENOMIC MEDICINE Immature granulocytes 1.9 (H) 0.0 - 1.0 % [facility] DEPARTMENT OF PATHOLOGY AND GENOMIC MEDICINE Specimen Blood Performing Organization Address City/State/Zipcode Phone Number [facility] DEPARTMENT OF [address] [place] [address] [facility] Comprehensive metabolic panel (02/04/2018 12:45 PM CDT)Only the most recent of2 resultswithin the time period is included. Sodium 143 135 - 150 mEq/L [facility] DEPARTMENT OF PATHOLOGY AND GENOMIC MEDICINE Potassium 4.4 3.5 - 5.0 mEq/L [facility] DEPARTMENT OF PATHOLOGY AND GENOMIC MEDICINE Chloride 105 98 - 112 mEq/L [facility] DEPARTMENT OF PATHOLOGY AND GENOMIC MEDICINE CO2 27 24 - 31 mmol/L [facility] DEPARTMENT OF PATHOLOGY AND GENOMIC MEDICINE Anion gap 11@ANIO 7 - 15 mEq/L [facility] DEPARTMENT OF PATHOLOGY AND GENOMIC MEDICINE BUN 6 (L) 7 - 18 mg/dL [facility] DEPARTMENT OF PATHOLOGY AND GENOMIC MEDICINE Creatinine 0.50 0.50 - 0.90 mg/dL [facility] DEPARTMENT OF PATHOLOGY AND GENOMIC MEDICINE Glucose 96 65 - 100 mg/dL [facility] DEPARTMENT OF PATHOLOGY AND GENOMIC MEDICINE Calcium 8.8 8.3 - 10.2 mg/dL [facility] DEPARTMENT OF PATHOLOGY AND GENOMIC MEDICINE Protein 6.7 6.3 - 8.3 g/dL [facility] DEPARTMENT OF PATHOLOGY AND GENOMIC MEDICINE Albumin 3.4 (L) 3.5 - 5.0 g/dL [facility] DEPARTMENT OF PATHOLOGY AND GENOMIC MEDICINE A/G ratio 1.0 0.7 - 3.8 [facility] DEPARTMENT OF PATHOLOGY AND GENOMIC MEDICINE Alkaline phosphatase 399 (H) 0 - 104 U/L [facility] DEPARTMENT OF PATHOLOGY AND GENOMIC MEDICINE AST 282 (H) 10 - 35 U/L [facility] DEPARTMENT OF PATHOLOGY AND GENOMIC MEDICINE ALT 63 (H) 5 - 50 U/L [facility] DEPARTMENT OF PATHOLOGY AND GENOMIC MEDICINE Total bilirubin 1.2 0.2 - 1.2 mg/dL [facility] DEPARTMENT OF PATHOLOGY AND GENOMIC MEDICINE Specimen Plasma specimen Performing Organization Address City/State/Zipcode Phone Number [facility] DEPARTMENT OF PATHOLOGY AND [facility] [place] [address] [employer] Transfuse RBC (02/04/2018 10:45 AM CDT)Only the most recent of2 resultswithin the time period is included.CRITICAL CARE (02/04/2018 1:49 AM CDT) Narrative Performed At Francisco J Silverio MD [...] Urine drugs of abuse screen (02/04/2018 1:45 AM CDT)Only the most recent of2 resultswithin the time period is included. Amphetamine screen, urine Negative [facility] DEPARTMENT OF PATHOLOGY AND GENOMIC MEDICINE Barbiturate screen, urine Negative [facility] DEPARTMENT OF PATHOLOGY AND GENOMIC MEDICINE Benzodiazepine screen, Negative [facility] DEPARTMENT OF urine PATHOLOGY AND GENOMIC MEDICINE Cocaine screen, urine Negative [facility] DEPARTMENT OF PATHOLOGY AND GENOMIC MEDICINE Methadone screen, urine Negative [facility] DEPARTMENT OF PATHOLOGY AND GENOMIC MEDICINE Opiates screen, urine Negative [facility] DEPARTMENT OF PATHOLOGY AND GENOMIC MEDICINE Phencyclidine screen, urine Negative [facility] DEPARTMENT OF PATHOLOGY AND GENOMIC MEDICINE Cannabinoid screen, urine Negative [facility] DEPARTMENT OF Comment: PATHOLOGY AND GENOMIC Drug screen minimum concentration of detectability MEDICINE Qewychwdxplw3881 ng/mL Rktkhwajggkfgkrf3956 ng/mL Barbiturates 300 ng/mL Tczksyjrepyycys066 ng/mL Biyvzbf154 ng/mL Yzdxnhhlw262 ng/mL Uvxakxh828 ng/mL Phencyclidine 25 ng/mL Qruapogcekwz43 ng/mL Ithsokalni1880 ng/mL Negative test results indicates presumptive evidence of lack of clinically significant drug concentration in this urine specimen. Positive test results are presumptive evidence of clinically significant drug concentration in this urine specimen. Testing performed for medical purposes only. Specimen Urine Performing Organization Address City/[facility]/Zipcode Phone Number [facility] DEPARTMENT OF PATHOLOGY AND [facility] [place] [address] [employer]INE XR Chest 1 Vw Portable (02/04/2018 1:38 AM CDT) Narrative Performed At EXAMINATION: XR CHEST 1 VW PORTABLE [facility] CLINICAL [facility]: syncope chf COMPARISON:None. IMPRESSION: Low lung volumes. The lungs are otherwise clear. No pleural effusion or pneumothorax. Cardiac silhouette appears prominent due in part to technique. No acute osseous abnormalities. [facility]-[id number] Procedure Note Hm Interface, Radiology Results Incoming - 02/04/2018 1:43 AM CDT EXAMINATION: XR CHEST 1 VW PORTABLE CLINICAL HISTORY: syncope chf COMPARISON: None. IMPRESSION: Low lung volumes. The lungs are otherwise clear. No pleural effusion or pneumothorax. Cardiac silhouette appears prominent due in part to technique. No acute osseous abnormalities. [facility]-[id number] Performing Organization Address City/[facility]/Zipcode Phone Number [facility] [address] [place] [address] Urinalysis screen and microscopy, with reflex to culture (02/04/2018 1:35 AM CDT)Only the most recent of2 resultswithin the time period is included. Specimen site Clean catch [facility] DEPARTMENT OF PATHOLOGY AND GENOMIC MEDICINE Color, UA Straw [facility] DEPARTMENT OF PATHOLOGY AND GENOMIC MEDICINE Appearance, UA Clear [facility] DEPARTMENT OF PATHOLOGY AND GENOMIC MEDICINE Specific gravity, UA 1.010 1.001 - 1.035 [facility] DEPARTMENT OF PATHOLOGY AND GENOMIC MEDICINE pH, UA 6.0 5.0 - 8.5 [facility] DEPARTMENT OF PATHOLOGY AND GENOMIC MEDICINE Protein, UA Negative Negative [facility] DEPARTMENT OF PATHOLOGY AND GENOMIC MEDICINE Glucose, UA Negative Negative [facility] DEPARTMENT OF PATHOLOGY AND GENOMIC MEDICINE Ketones, UA Trace (A) Negative [facility] DEPARTMENT OF PATHOLOGY AND GENOMIC MEDICINE Bilirubin, UA Negative Negative [facility] DEPARTMENT OF PATHOLOGY AND GENOMIC MEDICINE Blood, UA Negative Negative [facility] DEPARTMENT OF PATHOLOGY AND GENOMIC MEDICINE Nitrite, UA Negative Negative [facility] DEPARTMENT OF PATHOLOGY AND GENOMIC MEDICINE Urobilinogen, UA Negative <2.0 [facility] DEPARTMENT OF PATHOLOGY AND GENOMIC MEDICINE Leukocyte esterase, UA Negative Negative [facility] DEPARTMENT OF PATHOLOGY AND GENOMIC MEDICINE Epithelial cells, UA Many /HPF [facility] DEPARTMENT OF PATHOLOGY AND GENOMIC MEDICINE WBC, UA <1 0 - 5 /HPF [facility] DEPARTMENT OF PATHOLOGY AND GENOMIC MEDICINE RBC, UA 4 0 - 5 /HPF [facility] DEPARTMENT OF PATHOLOGY AND GENOMIC MEDICINE Bacteria, UA None seen None seen [facility] DEPARTMENT OF PATHOLOGY AND GENOMIC MEDICINE Yeast, UA None seen [facility] DEPARTMENT OF PATHOLOGY AND GENOMIC MEDICINE Yeast with pseudohyphae, UA None seen [facility] DEPARTMENT OF PATHOLOGY AND GENOMIC MEDICINE Specimen Urine Performing Organization Address City/State/[facility]ercode Phone Number [facility] DEPARTMENT OF PATHOLOGY AND [address] [facility] [place], [place] [id number] [place] [address] hCG qualitative, urine screen (02/04/2018 1:35 AM CDT) hCG qualitative, urine Negative Negative [facility] DEPARTMENT OF Comment: PATHOLOGY AND GENOMIC The manufacturers stated sensitivity of HcG test for serum is >/=10 MEDICINE mIU/ml and urine is >/=20mIU/ml. Specimen Urine Performing Organization Address City/[facility]/Zipcode Phone Number [facility] DEPARTMENT OF PATHOLOGY AND [facility] [place] [address] [facility] Urine culture (02/04/2018 1:35 AM CDT)Only the most recent of2 resultswithin the time period is included. Urine culture SEE COMMENTComment: Bacteriuria [facility] DEPARTMENT OF PATHOLOGY screen negative. AND GENOMIC MEDICINE Performing Organization Address City/State/Zipcode Phone Number [facility] DEPARTMENT OF PATHOLOGY AND [address] [facility] [place] [address] [facility] Occult blood, stool (02/04/2018 1:21 AM CDT) Occult blood, stool Negative for occult blood. [facility] DEPARTMENT OF Comment: PATHOLOGY AND GENOMIC Specimen Information MEDICINE Specimen Source: Stool Specimen Site: Nonpreserved Specimen Stool - Nonpreserved Performing Organization Address City/State/Zipcode Phone Number [facility] DEPARTMENT OF PATHOLOGY AND [address] [place] [address] [facility] ECG 12 lead (02/04/2018 1:02 AM CDT) Ventricular rate 80 [facility] Atrial rate 80 [facility] TX interval 134 [facility] QRSD interval 98 [facility] QT interval 386 [facility] QTC interval 445 [facility] P axis 1 55 [facility] QRS axis 1 78 [facility] T wave axis 39 [facility] EKG impression Normal sinus rhythm-Incomplete right bundle [facility] MUSE branch block-Cannot rule out Anterior infarct , age undetermined-Abnormal ECG-No previous ECGs available- Performing Organization Address City/State/Zipcode Phone Number [facility] MUSE [address] [place] [address] Smear review (02/04/2018 12:59 AM CDT) Platelet slide review Lee adequate [facility] DEPARTMENT OF PATHOLOGY AND GENOMIC MEDICINE Anisocytosis 1+ [facility] DEPARTMENT OF PATHOLOGY AND GENOMIC MEDICINE Polychromasia 1+ [facility] DEPARTMENT OF PATHOLOGY AND GENOMIC MEDICINE Stomatocytes 1+ [facility] DEPARTMENT OF PATHOLOGY AND GENOMIC MEDICINE Performing Organization Address City/State/Zipcode Phone Number [facility] DEPARTMENT OF PATHOLOGY AND [address] [place], [place] [id number] [place] [address] Prepare RBC, 2 Units (02/04/2018 12:59 AM CDT) Product name Red Blood Cells -1, [facility] DEPARTMENT OF [employer] PATHOLOGY AND GENOMIC MEDICINE Unit number [id number] [facility] DEPARTMENT OF PATHOLOGY AND GENOMIC MEDICINE Product code [id number] [facility] DEPARTMENT OF PATHOLOGY AND GENOMIC MEDICINE Dispense status Transfused [facility] DEPARTMENT OF PATHOLOGY AND GENOMIC MEDICINE Blood expiration date [facility] DEPARTMENT OF PATHOLOGY AND GENOMIC MEDICINE Blood type code 7300 [facility] DEPARTMENT OF PATHOLOGY AND GENOMIC MEDICINE Blood type B POSITIVE [facility] DEPARTMENT OF PATHOLOGY AND GENOMIC MEDICINE Product name Red Blood Cells -1, [facility] DEPARTMENT OF Leukored PATHOLOGY AND GENOMIC MEDICINE Unit number [id number] [facility] DEPARTMENT OF PATHOLOGY AND GENOMIC MEDICINE Product code [id number] [facility] DEPARTMENT OF PATHOLOGY AND GENOMIC MEDICINE Dispense status Transfused [facility] DEPARTMENT OF PATHOLOGY AND GENOMIC MEDICINE Blood expiration date [facility] DEPARTMENT OF PATHOLOGY AND GENOMIC MEDICINE Blood type code 7300 [facility] DEPARTMENT OF PATHOLOGY AND GENOMIC MEDICINE Blood type B POSITIVE [facility] DEPARTMENT OF PATHOLOGY AND GENOMIC MEDICINE Performing Organization Address City/State/[facility] Cent[facility]ode Phone Number [facility] DEPARTMENT OF PATHOLOGY AND [address] [place] [address] GENOMIC MEDICINE Type and screen (02/04/2018 12:59 AM CDT) ABO grouping B [facility] DEPARTMENT OF PATHOLOGY AND GENOMIC MEDICINE Rh type POS [facility] DEPARTMENT OF PATHOLOGY AND GENOMIC MEDICINE Antibody screen (gel) NEG [facility] DEPARTMENT OF PATHOLOGY AND GENOMIC MEDICINE Specimen Blood Performing Organization Address City/[facility] Centercode Phone Number [facility] DEPARTMENT OF PATHOLOGY AND [address] [place] [address] GENOMIC MEDICINE hCG qualitative, serum screen (02/04/2018 12:59 AM CDT) hCG qualitative, serum Negative [facility] DEPARTMENT OF Comment: PATHOLOGY AND GENOMIC The manufacturers stated sensitivity of HcG test for serum is >/=10 MEDICINE mIU/ml and urine is >/=20mIU/ml. Specimen Blood Performing Organization Address City/[facility] Centercode Phone Number [facility] DEPARTMENT OF PATHOLOGY AND [address] [place] [address] GENOMIC MEDICINE B natriuretic peptide (02/04/2018 12:59 AM CDT) BNP 16 0 - 100 pg/mL [facility] DEPARTMENT OF PATHOLOGY AND GENOMIC MEDICINE Specimen Blood Performing Organization Address City/[facility] Centercode Phone Number [facility] DEPARTMENT OF PATHOLOGY AND [address] [place] [address] GENOMIC MEDICINE Magnesium level (02/04/2018 12:59 AM CDT) Magnesium 2.00 1.60 - 2.60 mg/dL [facility] DEPARTMENT OF PATHOLOGY AND GENOMIC MEDICINE Specimen Plasma specimen Performing Organization Address City/[facility]/Zipcode Phone Number [facility] DEPARTMENT OF PATHOLOGY AND [address] [place], [place] [phone] [place] [address] MEDICINE Lipase level (02/04/2018 12:59 AM CDT) Lipase 35 13 - 60 U/L [facility] DEPARTMENT OF PATHOLOGY AND GENOMIC MEDICINE Specimen Plasma specimen Performing Organization Address City/[facility] Centercode Phone Number [facility] DEPARTMENT OF PATHOLOGY AND [address] [place] [address] [place], [place] [address] [place] [address] Alcohol level, blood (02/04/2018 12:59 AM CDT)Only the most recent of2 resultswithin the time period is included. Alcohol 282.8 mg/dL [facility] DEPARTMENT OF PATHOLOGY Comment: AND [facility] MEDICINE NormalNone Detected Legal Intoxication in [place] 80 mg/dL (0.08%) Toxic Concentration 200 mg/dL (0.2%) Potentially Fatal 350-500 mg/dL (0.35%-0.5%) Alcohol percent 0.283 % [facility] DEPARTMENT OF PATHOLOGY AND GENOMIC MEDICINE Specimen Blood Performing Organization Address [facility] Phone Number [facility] DEPARTMENT OF PATHOLOGY AND [address] [place] [address] [place], [place] [phone] [place] [address] MEDICINE Hepatic function panel (02/04/2018 12:59 AM CDT) Albumin 3.3 (L) 3.5 - 5.0 g/dL [facility] DEPARTMENT OF PATHOLOGY AND GENOMIC MEDICINE Total bilirubin 0.3 0.2 - 1.2 mg/dL [facility] DEPARTMENT OF PATHOLOGY AND GENOMIC MEDICINE Bilirubin direct <0.2 0.0 - 0.4 mg/dL [facility] DEPARTMENT OF PATHOLOGY AND GENOMIC MEDICINE Alkaline phosphatase 326 (H) 0 - 104 U/L [facility] DEPARTMENT OF PATHOLOGY AND GENOMIC MEDICINE Protein 6.7 6.3 - 8.3 g/dL [facility] DEPARTMENT OF PATHOLOGY AND GENOMIC MEDICINE ALT 34 5 - 50 U/L [facility] DEPARTMENT OF PATHOLOGY AND GENOMIC MEDICINE AST 66 (H) 10 - 35 U/L [facility] DEPARTMENT OF PATHOLOGY AND GENOMIC MEDICINE Specimen Plasma specimen Performing Organization Address City/[facility]ode Phone Number [facility] DEPARTMENT OF PATHOLOGY AND [address] [place] [address] [place] [address] [facility] MEDICINE Basic metabolic panel (02/04/2018 12:59 AM CDT) Sodium 145 135 - 150 mEq/L [facility] DEPARTMENT OF PATHOLOGY AND GENOMIC MEDICINE Potassium 3.8 3.5 - 5.0 mEq/L [facility] DEPARTMENT OF PATHOLOGY AND GENOMIC MEDICINE Chloride 108 98 - 112 mEq/L [facility] DEPARTMENT OF PATHOLOGY AND GENOMIC MEDICINE CO2 24 24 - 31 mmol/L [facility] DEPARTMENT OF PATHOLOGY AND GENOMIC MEDICINE Anion gap 13@ANIO 7 - 15 mEq/L [facility] DEPARTMENT OF PATHOLOGY AND GENOMIC MEDICINE BUN 8 7 - 18 mg/dL [facility] DEPARTMENT OF PATHOLOGY AND GENOMIC MEDICINE Creatinine 0.50 0.50 - 0.90 mg/dL [facility] DEPARTMENT OF PATHOLOGY AND GENOMIC MEDICINE Glucose 85 65 - 100 mg/dL [facility] DEPARTMENT OF PATHOLOGY AND GENOMIC MEDICINE Calcium 8.4 8.3 - 10.2 mg/dL [facility] DEPARTMENT OF PATHOLOGY AND GENOMIC MEDICINE Specimen Plasma specimen Performing Organization Address City/[facility] Centercoaz Phone Number [facility] DEPARTMENT OF PATHOLOGY AND [address] [place] [address] [facility] MEDICINE ECG ED Preliminary Interpretation - NOT AN ORDER (02/04/2018 12:40 AM CDT) Narrative Performed At Francisco J Silverio MD 02/04/20188:10 AM ECG ED Preliminary Interpretation - Not an Order Performed by: FRANCISCO J SILVERIO Authorized by: FRANCISCO J SILVERIO ECG reviewed by ED Physician in the absence of a printing sign machine operator: yes Interpretation: Interpretation: normal Rate: ECG rate:80 ECG rate assessment: normal Rhythm: Rhythm: sinus rhythm Ectopy: Ectopy: none QRS: QRS axis:Normal QRS intervals:Normal Conduction: Conduction: normal ST segments: ST segments:Normal T waves: T waves: normal Other findings: Other findings: poor R wave progression Thyroid stimulating hormone (07/07/2017 1:14 AM [employer]) TSH 2.21 0.55 - 4.78 uIU/mL [facility] DEPARTMENT OF PATHOLOGY AND GENOMIC MEDICINE Specimen Serum Performing Organization Address [facility] Phone Number [facility] DEPARTMENT OF PATHOLOGY AND [address] T4, free (07/07/2017 1:14 AM [employer]) T4, free 0.9 0.8 - 1.8 ng/dL [facility] DEPARTMENT OF PATHOLOGY AND [employer] MEDICINE Specimen Serum Performing Organization Address [facility] Phone Number [facility] DEPARTMENT OF PATHOLOGY AND [address] [address] [place] [id number] [facility] Acetaminophen level (07/07/2017 1:14 AM [employer]) Acetaminophen level <15.9 ug/mL [facility] DEPARTMENT OF PATHOLOGY Comment: AND GENOMIC MEDICINE Therapeutic 10-30 ug/mL Possible Toxicity 150-200 ug/mL Probable Toxicity >200 ug/mL Specimen Serum Performing Organization Address [facility] Phone Number [facility] DEPARTMENT OF PATHOLOGY AND [address] [place] [address] GENOMIC MEDICINE Salicylate level (07/07/2017 1:14 AM [employer]) Salicylate <0.4 mg/dL [facility] DEPARTMENT OF PATHOLOGY AND GENOMIC Comment: MEDICINE Therapeutic Range: 5 - 30 mg/dL Specimen Serum Performing Organization Address City/[facility]/Zipcode Phone Number [facility] DEPARTMENT OF PATHOLOGY AND [address] [place] [address] GENOMIC MEDICINE after 05/05/2017 Insurance Payer Benefit Plan / Group Subscriber ID Type Phone Address MISC MEDICAID REPLACEMENT MISC MEDICAID REPLACEMENT xxxxxxxxx HMO Advance Directives Patient has advance care planning documents, and code status on file. For more information, please contact:[place] [address] Code Status Date Activated Date Inactivated Comments Full Code 02/04/2018 4:10 AM 02/04/2018 7:39 PM Code Status decision reached by: Patient
--- OUTSIDE RECORDS SUMMARY | 2018-05-06 13:06 | XMS REPORT | Continuity of Care Document ---
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 [id number]-58 12/05 12/05 Andreas Benton MD e6-491a-8ed /2013 [facility] c-ag40a58c3 976 [place]. seizure [id number] 12/05 12/05 Andreas Benton MD 9f-4abd-b74 /2013 [facility] a-[id number] 142 [place]. seizure [id number]-v1 12/05 12/05 Andreas Benton MD f0-42da-b09 /2013 [facility] 9-7zz5mst00 345 [place]. seizure [id number] 12/05 12/05 Andreas Benton MD 8d-5ho6-5g0 /2013 [facility] [id number] c41 [place] S. seizure [id number] 12/05 12/05 Andreas Benton MD 15-60j7-9c1 /2013 [facility] 1-smfyy0rm8 e92 [place]. seizure [id number] 12/05 12/05 Andreas Benton MD 09-45cc-90c /2013 [facility] 2-q4m4363f4 62c [place] S. seizure [id number] 12/05 12/05 Andreas Benton MD e8-462e-8a4 /2013 [facility] [id number] 68f [place]. seizure [id number]-62 12/05 12/05 Andreas Benton MD e7-53p2-uyb /2013 [facility] 6-20gtt71l0 947 [place]. seizure [id number] 12/05 12/05 Andreas Benton MD 41-4521-aa /2013 [facility] [id number] 548 [place]. seizure [id number] 12/05 12/05 Andreas Benton MD dd-50g9-o31 [facility] e-466350vo6 d04 [place]. seizure u03nd80p-p1 12/05 12/05 Andreas Benton MD 5a-48cd-85 [facility] d-[id number] 4d6 [place]. seizure [id number]-fl 12/05 12/05 Andreas Benton MD 6b-07c4-5na /2013 [facility] f-[id number] f6e [place]. seizure 0235kcf8-m3 12/05 12/05 Andreas Benton MD 86-2z68-29j [facility] a-dc655s1k6 0a1 [place]. seizure sy2mo89g-1m 12/05 12/05 Andreas Benton MD ea-43fe-b29 /2013 [facility] b-2p812x5r3 720 [place]. seizure [id number] 12/05 12/05 Andreas Benton MD f7-96p0-o24 [facility] e-hhfi237s6 f5f [place]. seizure [id number]-58 12/05 12/05 Andreas Benton MD a3-460f-90 [facility] e-0t91g97c9 36d [place]. seizure 2eoe0yso-p7 12/05 12/05 Andreas Benton MD 8b-6w56-255 /2013 [facility] 4-[id number] 7b4 [place]. seizure [id number] 12/05 12/05 Andreas Benton MD 92-4tp1-659 [facility] a-4h416s554 e96 [place]. seizure [id number]-p3 12/05 12/05 Andreas Benton MD 18-12r3-nb8 [facility] a-2nf63z893 18f [place]. seizure p69l879y-75 12/05 12/05 Andreas Benton MD ff-42dd-80b /2013 [facility] 2-86h9k9ot9 b0a [place]. seizure [id number]-te 12/05 12/05 Andreas Benton MD 9e-4734-abc /2013 [facility] d-h837v70bn 9e4 [place]. seizure 885x0cg5-4c 12/05 12/05 Andreas Benton MD e7-3w16-3px /2013 [facility] 1-w4q8s344t 85c [place]. seizure d598e01l-g5 12/05 12/05 Andreas Benton MD dc-52h2-820 /2013 [facility] 0-67s4yh69y b0c [place]. seizure [id number] 12/05 12/05 Andreas Benton MD 1a-22w3-175 /2013 [facility] [id number] bd8 [place]. seizure oq3s84zm-to 12/05 12/05 Andreas Benton MD a4-5l3c-nh3 /2013 [facility] [id number] 971 [place]. seizure ft06b50b-r5 12/05 12/05 Andreas Benton MD 8e-2b15-7za /2013 [facility] d-[id number] 4b7 [place]. seizure [id number] 12/05 12/05 Anderas Benton MD 0f-42ef-b65 /2013 [facility] e-2wzh33s03 a21 [place]. seizure 23005gr1-6j 12/05 12/05 Andreas Benton MD ee-2m3v-h2e /2013 [facility] 8-zx9v9st8h 638 [place]. seizure 88a6pxry-58 12/05 12/05 Andreas Benton MD a2-478b-940 /2013 [facility] d-1dy72z6g0 4df [place]. Unknown [id number] 01/07 01/07 Andreas Benton MD 6b-5b14-c0n /2013 [facility] b-[id number] 93d [place]. Unknown [id number]-86 01/07 01/07 Andreas Benton MD 49-4dce-b5b /2013 [facility] e-31g9hk2i2 6b9 [place]. Unknown [id number] 01/07 01/07 Andreas Benton MD 1e-3l6f-448 /2013 [facility] 6-y3j52y7r6 7de [place]. Unknown [id number] 01/07 01/07 Andreas Benton MD d5-4p81-m4n /2013 [facility] 0-[id number] 80e [place]. Unknown [id number] 01/07 01/07 Andreas Benton MD 48-4256-948 /2013 [facility] c-[id number] a2f [place]. Unknown [id number] 01/07 01/07 Andreas Benton MD 96-63f3-sx8 /2013 [facility] b-[id number] 1f2 [place]. Unknown [id number] 01/07 01/07 Andreas Benton MD 7d-5jx6-067 /2013 [facility] e-[id number] 30b [place]. Unknown or250v8h-6l 01/07 01/07 Andreas Benton MD a4-4259-81d /2013 [facility] 0-4980i2ctf d4a [place]. Unknown [id number]-b8 01/07 01/07 Andreas Benton MD dd-6y3b-436 /2013 [facility] 8-uqu39fcu1 661 [place]. Unknown [id number] 01/07 01/07 Andreas Benton MD 02-20q9-0rt /2013 [facility] c-46so99yhl 4c3 [place]. Unknown [id number]-so 01/07 01/07 Andreas Benton MD fc-6l19-3z7 /2013 [facility] 4-98824o10k 7e8 [place]. Unknown [id number] 01/07 01/07 Andreas Benton MD f0-46af-9c6 /2013 [facility] f-wxu113k85 737 [place]. Unknown [id number] 01/07 01/07 Andreas Benton MD 97-9ml6-4m9 /2013 [facility] 0-855j1l79q cf7 [place]. Unknown [id number] 01/07 01/07 Andreas Benton MD 11-497c-a71 /2013 [facility] 6-5p8bh9fge 8ec [place]. Unknown [id number] 01/07 01/07 Andreas Benton MD e9-1z99-856 /2013 [facility] a-m3s735k22 afd [place]. Unknown [id number] 01/07 01/07 Andreas Benton MD 85-9s71-y7y /2013 [facility] 8-6427a399o 064 [place]. Unknown [id number] 01/07 01/07 Andreas Benton MD 05-4579-9b7 /2013 [facility] 9-kh7130l8j a28 [place]. Unknown [id number] 01/07 01/07 Andreas Benton MD 72-42dc-9e1 /2013 [facility] [id number] 8be [place]. Unknown [id number] 01/07 01/07 Andreas Bneton MD 76-42ca-a99 /2013 [facility] b-[id number] 36c [place]. Unknown [id number] 01/07 01/07 Andreas Benton MD e6-6v18-1o6 /2013 [facility] [id number] 829 [place]. Unknown [id number] 01/07 01/07 Andreas Benton MD 7b-4675-b0b /2013 [facility] a-o425y7q2j 386 [place]. Unknown [id number] 01/07 01/07 Andreas Benton MD b8-4331-88e /2013 [facility] d-[id number] 8af [place]. Unknown [id number] 01/07 01/07 Andreas Benton MD e4-7p69-4ic /2013 [facility] e-[id number] c19 [place]. Unknown [id number] 01/07 01/07 Andreas Benton MD bb-426d-b10 /2013 [facility] [id number] c6c [place]. Unknown [id number] 01/07 01/07 Andreas Benton MD 68-41b3-3k7 /2013 [facility] d-[id number] 075 [place]. Unknown [id number] 01/07 01/07 Andreas Benton MD 4c-17w5-g32 /2013 [facility] 5-9j7o79f4w 59d [place]. Unknown [id number] 01/07 01/07 Andreas Benton MD 59-42fa-8ed /2013 [facility] c-[id number] 63d [place]. Unknown [id number] 01/07 01/07 Andreas Benton MD 2c-4585-9f9 /2013 [facility] b-t2h5nubws 9f3 [place]. Unknown [id number]-nm 01/07 01/07 Andreas Benton MD e6-4378-8c3 /2013 [facility] a-v2mx803z4 950 [place]. Unknown [id number] 01/07 01/07 Andreas Benton MD 45-3s33-km5 /2013 [facility] [id number] fdf [place]. Unknown [id number] 01/07 01/07 Andreas Benton MD 3d-4646-af9 /2013 [facility] 8-525r1h71a 2c2 [place]. Unknown [id number]-65 01/07 01/07 Andreas Benton MD c3-43g9-g6c /2013 [facility] 3-83v843w19 0d6 [place]. MEDS [id number]-q5 01/30 01/30 Andreas Benton MD f9-4216-a6b /2013 [facility] c-9mwcs67fd b69 [place]. MEDS [id number] 01/30 01/30 Andreas Benton, 62-06d7-br8 /2013 [facility] 9-41z6k0tv5 a51 [place]. MEDS [id number] 01/30 01/30 Andreas Benton MD 6b-4868-[place] /2013 [facility] 9-q5x85xi44 bd3 [place]. MEDS [id number]-h4 01/30 01/30 Andreas Benton MD 7d-6o33-873 /2013 [facility] 3-274107v1i 38b [place]. MEDS [id number]-64 01/30 01/30 Andreas Benton MD b2-3td5-j26 /2013 [facility] [id number] da4 [place]. MEDS [id number] 01/30 01/30 Andreas Benton MD 99-77u1-g80 /2013 [facility] [id number] 7f3 [place]. MEDS [id number]-74 01/30 01/30 Andreas Benton MD 2e-4466-900 /2013 [facility] [id number] 1f5 [place]. MEDS 82x46v15-r6 01/30 01/30 Andreas Benton MD 5a-4689-b70 /2013 [facility] c-[id number] 452 [place]. MEDS [id number] 01/30 01/30 Andreas Benton MD c1-1y98-tmj /2013 [facility] 1-h5410142j 63d [place]. MEDS aw903jmn-ny 01/30 01/30 Andreas Benton MD a2-4ecb-984 /2013 [facility] d-8h60h572z 059 [place]. MEDS mb3m628m-jk 01/30 01/30 Andreas Benton MD bf-2s9a-981 /2013 [facility] e-[id number] 0ad [place]. MEDS [id number]-fp 01/30 01/30 Andreas Benton MD d3-4506-9c1 /2013 [facility] b-[id number] 6f1 [place]. MEDS [id number]-t7 01/30 01/30 Andreas Benton MD d9-4dfc-b7e /2013 [facility] [id number] 274 [place]. MEDS [id number]-l5 01/30 01/30 Andreas Benton MD 9a-82e9-z38 /2013 [facility] a-0744y78hw 89f [place]. MEDS [id number]-c7 01/30 01/30 Andreas Benton, 7b-6y97-m4k /2013 [facility] a-h925tyhb3 e0c [place]. MEDS [id number] 01/30 01/30 Andreas Benton MD 01-453a-933 /2013 [facility] 1-725hy7d4q c6e [place]. MEDS [id number] 01/30 01/30 Andreas Benton MD b7-7kf8-l47 /2013 [facility] 1-6wv7a4hgr b90 [place]. MEDS 51mg80w2-9o 01/30 01/30 Andreas Benton MD b1-414f-8a7 /2013 [facility] 9-[id number] 1ce [place]. MEDS [id number]-8k 01/30 01/30 Andreas Benton MD 8d-497f-8b6 /2013 [facility] 3-530j7m8zy a29 [place]. MEDS [id number] 01/30 01/30 Andreas Benton MD 05-49bb-83a /2013 [facility] e-[id number] 98d [place]. MEDS [id number] 01/30 01/30 Andreas Benton MD 90-8s99-3c6 /2013 [facility] b-[id number] 67b [place]. MEDS [id number] 01/30 01/30 Andreas Benton MD e8-4t0z-16e /2013 [facility] 1-k86qc4y93 e49 [place]. MEDS [id number] 01/30 01/30 Andreas Benton MD da-9j07-x4c /2013 [facility] 7-960psd012 0d4 [place]. MEDS [id number] 01/30 01/30 Andreas Benton MD 9e-4762-bef /2013 [facility] [id number] 24f [place]. MEDS 5dnnpbn1-5v 01/30 01/30 Andreas Benton MD 09-28n3-238 /2013 [facility] a-cl928eu41 c0c [place]. MEDS [id number] 01/30 01/30 Andreas Benton MD c7-1j0k-y8q /2013 [facility] f-j9f7h33e2 e71 [place]. MEDS [id number] 01/30 01/30 Andreas Benton MD dc-454b-af0 /2013 [facility] e-h4153i93w 296 [place]. MEDS [id number]-jt 01/30 01/30 Andreas Benton MD 56-40bf-9e6 /2013 [facility] d-3q63b92u4 0a7 [place]. MEDS [id number] 01/30 01/30 Andreas Benton MD 8b-37p1-r00 /2013 [facility] c-54162t52r 847 [place]. MEDS [id number] 01/30 01/30 Andreas Benton MD 41-4688-9a0 /2013 [facility] f-8aa15ea2y 7e7 [place]. MEDS [id number]-90 01/30 01/30 Andreas eBnton MD ac-2e6m-f54 /2013 [facility] b-91575zw61 806 [place]. Unknown [id number] 02/04 02/04 Andreas Benton MD bc-4bde-89b /2013 [facility] a-[id number] 2e1 [place]. Unknown [id number] 02/04 02/04 Andreas Benton MD 75-4851-bcb /2013 [facility] e-lm4356k9n 522 [place]. Unknown a10sv0gl-nc 02/04 02/04 Andreas Benton MD 6d-4375-8b3 /2013 [facility] e-[id number] 958 [place]. Unknown [id number] 02/04 02/04 Andreas Benton MD 0e-4631-b87 /2013 [facility] e-75u8jlx36 a97 [place]. Unknown [id number]-is 02/04 02/04 Andreas Benton MD 25-7gx8-bvl /2013 [facility] [id number] df4 [place]. Unknown i8q6m7hj-te 02/04 02/04 Andreas Benton MD c7-4480-8da /2013 [facility] 2-8k129r4z8 f93 [place]. Unknown [id number]-41 02/04 02/04 Andreas Benton MD 57-4128-a82 /2013 [facility] 4-i4ct1u430 46b [place]. Unknown [id number] 02/04 02/04 Andreas Benton MD 47-409e-a12 [facility] e-[id number] d1f [place]. Unknown [id number] 02/04 02/04 Andreas Benton MD d9-4295-a3c /2013 [facility] 3-43410iel9 b13 [place]. Unknown [id number]-7g 02/04 02/04 Andreas Benton MD 07-9gx1-x8o /2013 [facility] 6-977wol9yh 3cd [place]. Unknown [id number] 02/04 02/04 Andreas Benton MD 0a-52f9-25f [facility] 7-06k61cc98 44d [place]. Unknown [id number] 02/04 02/04 Andreas Benton MD 6b-4429-bc8 [facility] b-[id number] 216 [place]. Unknown [id number] 02/04 02/04 Andreas Benton MD 3b-50s3-h4f [facility] 2-t4zj71m2d 01e [place]. Unknown [id number] 02/04 02/04 Andreas Benton MD f8-4acc-975 /2013 [facility] 4-185911fh4 c2d [place]. Unknown [id number] 02/04 02/04 Andreas Benton MD 8a-493d-a80 /2013 [facility] 5-[id number] 220 [place]. Unknown [id number] 02/04 02/04 Andreas Benton MD e2-4696-bfc /2013 [facility] c-ntnf64p03 f95 [place]. Unknown [id number] 02/04 02/04 Andreas Benton MD b1-407e-b97 /2013 [facility] 8-[id number] 1b3 [place]. Unknown [id number] 02/04 02/04 Andreas Benton MD 96-49cd-9d6 /2013 [facility] d-v46l08t79 ce9 [place]. Unknown [id number] 02/04 02/04 Andreas Bneton MD da-476b-921 /2013 [facility] 8-knzwz4zd9 264 [place]. Unknown [id number]-ao 02/04 02/04 Andreas Benton MD d6-410f-8c0 [facility] [id number] 7cd [place]. Unknown [id number] 02/04 02/04 Andreas Benton MD 1f-4l21-mz6 /2013 [facility] [id number] 624 [place]. Unknown [id number] 02/04 02/04 Andreas Benton MD d7-44de-91f /2013 [facility] d-27621vekm d3c [place]. Unknown [id number] 02/04 02/04 Andreas Benton MD a5-79q4-43w [facility] 7-78293zrt4 4b4 [place]. Unknown ib9q4m11-j0 02/04 02/04 Andreas Benton MD 96-67l3-10y /2013 [facility] 9-7110x16t4 929 [place]. Unknown [id number] 02/04 02/04 Andreas Benton MD 7f-4411-9d2 /2013 [facility] c-ok80w5ml3 e7a [place]. Unknown [id number] 02/04 02/04 Andreas Benton MD fb-25b0-589 /2013 [facility] 4-vz6q7jfu8 b69 [place]. Unknown [id number] 02/04 02/04 Andreas Benton MD 84-3ls0-xs7 /2013 [facility] 8-y09604e8o 40f [place]. Unknown [id number] 02/04 02/04 Andreas Benton MD 77-1ix2-l64 /2013 [facility] 2-7c3h37pv0 9eb [place]. Unknown [id number]-[id number] 02/04 02/04 Andreas Benton MD fb-0e98-4vo /2013 [facility] [id number] 527 [place]. Unknown [id number] 02/04 02/04 Andreas Benton MD 92-417c-98b /2013 [facility] 9-[id number] e00 [place]. Unknown [id number]-07 02/04 02/04 Andreas Benton MD d9-5mx6-329 /2013 [facility] 2-u5x3f4pwl 7a3 [place]. Unknown [id number] 02/07 02/07 Andreas Benton MD [id number] /2013 [facility] [id number] 49a Pachie S. Unknown [id number] 02/07 02/07 Andreas Benton MD [id number] /2013 [facility] 2-[id number] ef0 Pachie S. Unknown [id number] 02/07 02/07 Andreas Benton MD [id number] /2013 [facility] [id number] 798 Pachie S. Unknown [id number] 02/07 02/07 Andreas Benton MD [id number] /2013 [facility] [id number] bc4 P[place]ie S. Unknown [id number] 02/07 02/07 Andreas Benton, [id number] /2013 [facility] [id number] 3df Pachie S. Unknown [id number] 02/07 02/07 Andreas Benton MD ad-[id number] /2013 [facility] [id number] 1c5 Pachie S. Unknown [id number] 02/07 02/07 Andreas Benton MD [id number]-[id number] /2013 [facility] [id number] d2a Pachie S. Unknown [id number] 02/07 02/07 Andreas Benton MD [id number] /2013 [facility] [id number] 74c Pachie S. Unknown [id number] 02/07 02/07 Andreas Benton MD [id number] /2013 [facility] [id number] 92f Pachie S. Unknown [id number] 02/07 02/07 Andreas Benton MD [id number] /2013 [facility] [id number] 5f1 P[place]ie S. Unknown [id number] 02/07 02/07 Andreas Benton MD [id number]-84a /2013 [facility] [id number] 76f Pachie S. Unknown [id number] 02/07 02/07 Andreas Benton MD [id number]-[id number] /2013 [facility] f-[id number] c31 P[place]ie S. Unknown [id number] 02/07 02/07 Andreas Benton MD [id number] /2013 [facility] [id number] 9ba P[place]ie S. Unknown [id number] 02/07 02/07 Andreas Benton MD [id number]-[id number] /2013 [facility] [id number] f41 P[place]ie S. Unknown [id number] 02/07 02/07 Andreas Benton MD [id number]-[id number] /2013 [facility] [id number] c0d Pachie S. Unknown [id number] 02/07 02/07 Andreas Benton MD [id number] /2013 [facility] a-[id number] 1c0 Pachie S. Unknown [id number] 02/07 02/07 Andreas Benton MD [id number] /2013 [facility] [id number] be9 P[place]ie S. Unknown [id number] 02/07 02/07 Andreas Benton MD [id number]-[id number] /2013 [facility] [id number] 792 P[place]ie S. Unknown [id number] 02/07 02/07 Andreas Benton MD [id number]-b39 /2013 [facility] e-[id number] 794 P[place]ie S. Unknown [id number] 02/07 02/07 Andreas Benton MD [id number] /2013 [facility] c-[id number] eb8 P[place]ie S. Unknown [id number] 02/07 02/07 Andreas Benton MD [id number] /2013 [facility] [id number] 458 P[place]ie S. Unknown [id number] 02/07 02/07 Andreas Benton MD 35-4952-97c /2013 [facility] 9-[id number] bf6 P[place]ie S. Unknown [id number] 02/07 02/07 Andreas Benton MD eb-479c-[id number] /2013 [facility] [id number] 217 P[place]ie S. Unknown [id number] 02/07 02/07 Andreas Benton MD 7f-404d-[id number] /2013 [facility] [id number] 27e P[place]ie S. Unknown [id number] 02/07 02/07 Andreas Benton MD [id number] /2013 [facility] [id number] 85f P[place]ie S. Unknown [id number] 02/07 02/07 Andreas Benton MD [id number]-[id number] /2013 [facility] [id number] 44f P[place]ie S. Unknown [id number] 02/07 02/07 Andreas Benton MD [id number] /2013 [facility] [id number] 614 P[place] S. Unknown [id number] 02/07 02/07 Andreas Benton MD df-[id number] /2013 [facility] [id number] 39b P[place]ie S. Unknown [id number] 02/07 02/07 Andreas Benton MD fb-[id number]-syb /2013 [facility] [id number] 87d P[place]ie S. Unknown [id number] 02/07 02/07 Andreas Benton MD 87-43cf-bf4 /2013 [facility] [id number] 8be P[place]ie S. Unknown [id number] 02/07 02/07 Andreas Benton MD [id number] /2013 [facility] [id number] c87 P[place]ie S. DRY SOCKET [id number] 02/12 02/12 Andreas Benton MD [id number] /2013 [facility] [id number] efd P[place]ie S. [employer] S[employer] [id number] 02/12 02/12 Andreas Benton MD [id number] /2013 [facility] [id number] 7de P[place]ie S. DR[employer] S[employer] [id number] 02/12 02/12 Andreas Benton MD [id number] /2013 [facility] [id number] 1db P[place]ie S. [employer] S[employer] [id number] 02/12 02/12 Andreas Benton MD [id number] /2013 [facility] [id number] d1f P[place]ie S. [employer] S[employer] [id number] 02/12 02/12 Andreas Benton MD [id number] /2013 [facility] [id number] c50 P[place]ie S. [employer] S[employer] [id number] 02/12 02/12 Andreas Benton MD [id number] /2013 [facility] [id number] 3eb P[place]ie S. [employer] [id number] 02/12 02/12 Andreas Benton MD [id number] /2013 [facility] 9-[id number] 83a P[place]ie S. [employer] S[employer] [id number] 02/12 02/12 Andreas Benton MD [id number] /2013 [facility] [id number] 810 P[place]ie S. DRY SOCKET [id number] 02/12 02/12 Andreas Benton MD [id number] /2013 [facility] d-[id number] 8e6 [place] [employer] [id number] 02/12 02/12 Andreas Benton MD 3f-3o49-pd3 /2013 [facility] 7-mi9310nmj 974 [place] [employer] [id number] 02/12 02/12 Andreas Benton MD e1-5m73-ar9 /2013 [facility] c-[id number] 852 [place] [employer] [id number]-26 02/12 02/12 Andreas Benton MD 22-4ok4-qw7 /2013 [facility] f-[id number] dd1 [place] [employer] [id number] 02/12 02/12 Andreas Benton MD 11-27t1-iux /2013 [facility] f-[id number] e18 [place] [employer] [id number] 02/12 02/12 Andreas Benton MD c1-93o8-70e /2013 [facility] d-[id number] b0e [place] [employer] [id number] 02/12 02/12 Andreas Benton MD 5d-4137-8ab /2013 [facility] e-71doo07w1 923 [place] [employer] [id number]-47 02/12 02/12 Andreas Benton MD 36-43ad-8bf /2013 [facility] e-[id number] 89d [place] [employer] [id number] 02/12 02/12 Andreas Benton MD 6a-438d-a44 /2013 [facility] 2-hd26w21yl 1f6 [place] [employer] [id number] 02/12 02/12 Andreas Benton MD fc-1rw2-wt4 /2013 [facility] [id number] 80c [place] [employer] [id number] 02/12 02/12 Andreas Benton MD 32-6h3i-227 /2013 [facility] [id number] 5cc [place] [employer] [id number] 02/12 02/12 Andreas Benton MD d6-409d-bf9 /2013 [facility] [id number] a6d [place] [employer] [id number] 02/12 02/12 Andreas Benton MD 22-44dd-8c9 /2013 [facility] 5-tnu1qy162 8ce [place] [employer] [id number] 02/12 02/12 Andreas Benton MD 6a-4497-888 /2013 [facility] [id number] d33 [place] [employer] [id number] 02/12 02/12 Andreas Benton MD 28-48ae-be1 [facility] 5-[id number] 1e4 [place] [employer] [id number]-28 02/12 02/12 Andreas Benton MD 08-3oq5-xhf /2013 [facility] [id number] e30 [place] [employer] [id number]-01 02/12 02/12 Andreas Benton MD 2e-4441-906 /2013 [facility] 7-[id number] 2f1 [place] [employer] [id number]-47 02/12 02/12 Andreas Benton MD c3-4145-b03 /2013 [facility] c-[id number] a48 [place] [employer] [id number] 02/12 02/12 Andreas Benton MD be-6i94-x10 /2013 [facility] [id number] 629 [place] [employer] [id number] 02/12 02/12 Andreas Benton MD 4e-4490-b77 /2013 [facility] b-[id number] a54 [place] [employer] [id number] 02/12 02/12 Andreas Benton MD 54-4ecf-9e1 /2013 [facility] 4-[id number] 621 [place] [employer] [id number] 02/12 02/12 Andreas Benton MD a5-4753-a38 /2013 [facility] a-kqhr7i1wv 9f2 [place] [employer] [id number]-pt 02/12 02/12 Andreas Benton MD 4a-4070-98c /2013 [facility] 8-60w53ph0t 2b5 [place] S. Unknown [id number] 03/06 03/06 Andreas Benton MD 22-04a1-y1u [facility] 6-[id number] eef [place] S. Unknown [id number] 03/06 03/06 Andreas Benton MD f6-4104-8b9 [facility] d-p49t0c6w4 ee9 [place] S. Unknown [id number] 03/06 03/06 Andreas Benton MD 70-4j12-ry7 [facility] 8-673dy57mo f69 [place] S. Unknown [id number] 03/06 03/06 Andreas Benton MD 71-45dc-a74 /2013 [facility] 4-hlsq41c9u 906 [place] S. Unknown [id number] 03/06 03/06 Andreas Benton MD 99-4637-b24 [facility] d-[id number] 73f [place] S. Unknown [id number] 03/06 03/06 Andreas Benton MD b2-48aa-8b8 [facility] b-3z0y87sza 325 [place] S. Unknown [id number] 03/06 03/06 Kalieellen Benton, 42-4951-b4e /2013 [facility] c-[id number] 790 [place] S. Unknown [id number] 03/06 03/06 Kalieellen Benton, 86-4ccc-b80 /2013 [facility] f-[id number] 226 [place] S. Unknown [id number] 03/06 03/06 Andreas Benton, d7-24w7-f60 /2013 [facility] e-[id number] 8a5 [place] S. Unknown [id number] 03/06 03/06 Andreas Benton, fd-78s4-k8t /2013 [facility] d-[id number] 755 [place] S. Unknown [id number] 03/06 03/06 Andreas Benton, 2c-4301-809 /2013 [facility] 2-a237mx07m 22b [place] S. Unknown [id number] 03/06 03/06 Andreas Benton MD f8-428b-aa5 [facility] [id number] 2e5 [place] S. Unknown [id number] 03/06 03/06 Andreas Benton MD dc-1cg3-09i /2013 [facility] [id number] 4be [place] S. Unknown [id number] 03/06 03/06 Andreas Benton MD af-6g6y-8e9 [facility] c-740dv4v29 a9d [place] S. Unknown [id number] 03/06 03/06 Andreas Benton MD d8-2m26-9tu [facility] d-l4wv24q2b 8e8 [place] S. Unknown [id number] 03/06 03/06 Andreas Benton MD 67-19q6-ra8 [facility] [id number] 90e [place] S. Unknown [id number] 03/06 03/06 Andreas Benton MD b8-4bbe-8d2 [facility] c-[id number] 621 [place] S. Unknown [id number]-75 03/06 03/06 Andreas Benton MD 72-7y6h-o0y /2013 [facility] d-[id number] c57 [place] S. Unknown [id number] 03/06 03/06 Andreas Benton MD 5c-49cc-83a /2013 [facility] [id number] 168 [place] S. Unknown [id number] 03/06 03/06 Andreas Benton MD 3f-424a-b13 /2013 [facility] a-[id number] 5f3 [place] S. Unknown [id number] 03/06 03/06 Andreas Benton MD 09-9v9b-e9e /2013 [facility] [id number] 798 [place] S. Unknown [id number] 03/06 03/06 Andreas Benton MD 5f-4x41-y09 /2013 [facility] 6-k05w528o3 0c5 [place] S. Unknown [id number] 03/06 03/06 Andreas Benton MD 97-44ad-8cc /2013 [facility] a-[id number] c81 [place] S. Unknown [id number] 03/06 03/06 Andreas Benton MD eb-9m25-ux9 /2013 [facility] 2-3bi2qip12 bd3 [place] S. Unknown [id number] 03/06 03/06 Andreas Benton MD 72-429a-82a /2013 [facility] b-[id number] 142 [place] S. Unknown [id number] 03/06 03/06 Andreas Benton MD ed-7f18-29p /2013 [facility] [id number] 069 [place] S. meds [id number] 03/17 03/17 Andreas Benton MD 72-56m1-fr5 /2013 [facility] [id number] 293 [place] S. meds [id number] 03/17 03/17 Andreas Benton MD 2f-0t1g-848 /2013 [facility] f-[id number] 2f5 [place] S. meds [id number] 03/17 03/17 Andreas Benton, e6-426d-b06 /2013 [facility] 8-[id number] b95 [place] S. meds [id number] 03/17 03/17 Andreas Benton MD 0d-4705-9c3 /2013 [facility] f-[id number] fa4 [place] S. meds [id number]-16 03/17 03/17 Andreas Benton MD 4c-9d8d-ox8 /2013 [facility] 4-[id number] b79 [place] S. meds [id number]-b7 03/17 03/17 Andreas Benton MD 29-4qa7-tr4 /2013 [facility] b-gdxq28lzo 6df [place] S. meds [id number] 03/17 03/17 Andreas Benton MD 9c-3q55-91a /2013 [facility] e-[id number] 462 [place] S. meds [id number] 03/17 03/17 Andreas Benton MD c0-4580-b8c /2013 [facility] [id number] 8a1 [place] S. meds [id number] 03/17 03/17 Andreas Benton MD 2a-9t87-1nr /2013 [facility] d-sli0bnuo9 cd9 [place] S. meds [id number]-45 03/17 03/17 Andreas Benton MD df-4613-a8b /2013 [facility] [id number] 7c8 [place] S. meds 4rukn2n4-qt 03/17 03/17 Andreas Benton MD 11-4515-jennifer /2013 [facility] [id number] 2dd [place] S. meds [id number]-95 03/17 03/17 Andreas Benton MD 5c-439e-968 /2013 [facility] [id number] 897 [place] S. meds [id number] 03/17 03/17 Andreas Benton MD 5f-4afe-baf /2013 [facility] d-9yqvu1z0s 453 [place] S. meds 640c47gw-c2 03/17 03/17 Andreas Benton MD af-418b-800 /2013 [facility] 0-[id number] f55 [place] S. meds [id number]-vm 03/17 03/17 Andreas Benton MD bf-4l78-f82 /2013 [facility] [id number] 512 [place] S. meds [id number]-[id number] 03/17 03/17 Andreas Benton MD 95-6n3t-06s /2013 [facility] e-[id number] c0b [place] S. meds [id number] 03/17 03/17 Andreas Benton MD f7-4542-88f /2013 [facility] f-[id number] e67 [place] S. meds [id number]-is 03/17 03/17 Andreas Benton MD 19-72l8-f96 /2013 [facility] 4-[id number] 659 [place] S. meds [id number]-3l 03/17 03/17 Andreas Benton MD 1e-470e-b95 /2013 [facility] [id number] 665 [place] S. meds [id number]-50 03/17 03/17 Andreas Benton MD 02-5o87-5dh /2013 [facility] [id number] d2d [place] S. meds [id number]-2w 03/17 03/17 Andreas Benton MD 55-47bc-b8d /2013 [facility] [id number] d1d [place] S. meds [id number] 03/17 03/17 Andreas Benton MD b6-68t3-5k9 /2013 [facility] 9-3ndv1037m 544 [place] S. meds [id number]-or 03/17 03/17 Andreas Benton MD bf-4d03-0zd [facility] 6-embh6dgxz d63 [place] S. meds qfl74bw5-tg 03/17 03/17 Andreas Benton MD 6f-4820-8c4 /2013 [facility] [id number] 6a8 [place] S. meds [id number]-kx 03/17 03/17 Andreas Benton MD aa-4893-a04 /2013 [facility] b-ns7c104h9 091 [place] S. meds [id number] 03/17 03/17 Andreas Benton MD d0-4303-aef /2013 [facility] 8-0utv22d30 8b0 [place] S. Unknown [id number]-nj 04/08 04/08 Andreas Benton MD af-4051-8ab /2013 [facility] [id number] 96f [place] S. Unknown [id number] 04/08 04/08 Andreas Benton MD 82-4903-99c /2013 [facility] 3-[id number] cea [place] S. Unknown [id number] 04/08 04/08 Andreas Benton MD da-9vq4-z1k /2013 [facility] 3-57k31xm57 f96 [place] S. Unknown [id number] 04/08 04/08 Andreas Benton MD fd-40fa-aff /2013 [facility] 0-o8t1982a5 e38 [place] S. Unknown [id number] 04/08 04/08 Andreas Benton MD 64-41eb-879 /2013 [facility] [id number] 2b8 [place] S. Unknown [id number] 04/08 04/08 Andreas Benton MD 0a-6xu0-98n /2013 [facility] [id number] e9a [place] S. Unknown [id number] 04/08 04/08 Andreas Benton MD 54-4897-93e /2013 [facility] d-[id number] 13a [place] S. Unknown [id number]-22 04/08 04/08 Andreas Benton MD 7f-91n2-4l4 [facility] [id number] 6e5 [place] S. Unknown [id number] 04/08 04/08 Andreas Benton MD 56-409d-973 /2013 [facility] f-dim2fm9bj 4f1 [place] S. Unknown [id number]-59 04/08 04/08 Andreas Benton MD cb-480b-836 /2013 [facility] 8-[id number] d28 [place] S. Unknown [id number]-74 04/08 04/08 Andreas Benton MD 81-4801-ad3 /2013 [facility] f-c28qg55jg 848 [place] S. Unknown [id number] 04/08 04/08 Andreas Benton MD bc-44cf-9a6 /2013 [facility] f-[id number] 2c7 [place] S. Unknown [id number]-57 04/08 04/08 Andreas Benton MD 4a-40ee-a01 /2013 [facility] 9-1sw792j22 82a [place] S. Unknown [id number] 04/08 04/08 Andreas Benton MD ed-9m75-h26 /2013 [facility] [id number] 0b3 [place]. Unknown [id number] 04/08 04/08 Andreas Benton MD a1-0u13-92d /2013 [facility] 7-21sa3s95b 945 [place] S. Unknown [id number] 04/08 04/08 Andreas Benton MD 9d-68b8-2wo /2013 [facility] a-[id number] bc3 [place] S. Unknown [id number] 04/08 04/08 Andreas Benton MD d9-405e-bfa /2013 [facility] 2-[id number] dd8 [place] S. Unknown [id number] 04/08 04/08 Andreas Benton MD a3-4870-a68 /2013 [facility] b-[id number] 6fd [place] S. Unknown [id number] 04/08 04/08 Andreas Benton MD 6c-4i5j-w55 /2013 [facility] d-5474n4q8z 3e8 [place] S. Unknown [id number] 04/08 04/08 Andreas Benton MD 36-401d-a84 /2013 [facility] 0-[id number] d41 [place] S. Unknown [id number] 04/08 04/08 Andreas Benton MD 28-496a-943 /2013 [facility] 3-[id number] 0f3 [place] S. Unknown [id number] 04/08 04/08 Andreas Benton MD 8b-06o6-u1r /2013 [facility] 3-3bt748ieq 5c5 [place] S. Unknown [id number] 04/08 04/08 Andreas Benton MD a4-4265-a4d /2013 [facility] 8-bocs12l88 f7c [place] S. Unknown [id number] 04/08 04/08 Andreas Benton MD db-4835-94e /2013 [facility] e-0q68fw1s5 c76 [place] S. Unknown [id number] 05/13 05/13 Andreas Benton MD 5e-4813-8e7 /2013 [facility] d-[id number] 224 [place] S. Unknown [id number] 05/13 05/13 Andreas Benton MD ff-0z06-707 /2013 [facility] d-[id number] 5de [place] S. Unknown [id number] 05/13 05/13 Andreas Benton MD ad-40db-bf4 /2013 [facility] c-0qlm7oi96 b8c [place] S. Unknown [id number] 05/13 05/13 Andreas Benton MD aa-48fc-9c4 /2013 [facility] [id number] b55 [place] S. Unknown [id number] 05/13 05/13 Andreas Benton MD ed-4175-91b /2013 [facility] 9-m0o22csri 776 [place] S. Unknown [id number]-ll 05/13 05/13 Andreas Benton MD d6-451f-945 /2013 [facility] 1-7w1p71jix f4f [place] S. Unknown [id number] 05/13 05/13 Andreas Benton MD a3-6p70-s6c /2013 [facility] 0-11665x6qj 079 [place] S. Unknown [id number] 05/13 05/13 Andreas Benton, 6c-1w12-qqc /2013 [facility] 9-tzv3alw92 e66 [place] S. Unknown [id number] 05/13 05/13 Andreas Benton MD 7c-4cca-8b7 [facility] 5-7xi0a99ac 644 [place] S. Unknown [id number] 05/13 05/13 Andreas Benton, 6d-481f-8dd [facility] f-[id number] 3b9 [place] S. Unknown [id number] 05/13 05/13 Andreas Benton MD 62-0p34-89k [facility] [id number] dfd [place] S. Unknown [id number] 05/13 05/13 Andreas Benton MD e7-44ce-aab [facility] c-[id number] ff8 [place] S. Unknown [id number] 05/13 05/13 Andreas Benton MD 1e-4503-853 [facility] 8-t82317l5m 0cd [place] S. Unknown [id number] 05/13 05/13 Andreas Benton MD 4d-2rv4-j16 [facility] [id number] 5d4 [place] S. Unknown [id number] 05/13 05/13 Andreas Benton MD af-6fj5-4dz [facility] 4-44fn8v6r2 94b [place] S. Unknown [id number] 05/13 05/13 Andreas Benton MD c7-7j02-1i7 [facility] 9-64vb3w0tv abf [place] S. Unknown [id number] 05/13 05/13 Andreas Benton MD 5d-4219-b93 [facility] [id number] 685 [place] S. Unknown [id number] 05/13 05/13 Andreas Benton MD f6-459c-a39 /2013 [facility] 6-2034259y7 42e [place] S. Unknown [id number] 05/13 05/13 Andreas Benton MD 09-447f-b51 /2013 [facility] 5-4759lh963 4d5 [place] S. Unknown [id number] 05/13 05/13 Andreas Benton MD d9-4966-95b /2013 [facility] a-ju87725p1 6af [place] S. Unknown [id number] 05/13 05/13 Andreas Benton MD 55-02g5-i17 /2013 [facility] [id number] 961 [place] S. Unknown [id number] 05/13 05/13 Andreas Benton MD c7-4aff-894 /2013 [facility] b-4n760b1o2 1e3 [place]. Unknown [id number] 05/13 05/13 Andreas Benton MD ef-42ed-b2e /2013 [facility] 0-[id number] 8f3 [place] S. Refill [id number]-l9 05/15 05/15 Andreas Benton MD 26-4056-8f2 [facility] 5-2h45na1me cef [place] S. Refill [id number] 05/15 05/15 Andreas Benton MD c7-4586-ba2 /2013 [facility] 6-1w5100am5 121 [place]. Refill [id number] 05/15 05/15 Andreas Benton MD 82-4197-9e8 /2013 [facility] c-eg4w5v54s c37 [place] S. Refill [id number]-lj 05/15 05/15 Andreas Benton MD 46-41fd-8ec /2013 [facility] 7-vhzt39vw5 4c7 [place] S. Refill [id number]-98 05/15 05/15 Andreas Benton MD 2d-2k8t-8w8 [facility] 6-xw7k4q7d1 49e [place] S. Refill [id number] 05/15 05/15 Andreas Benton MD e9-1tn1-oq4 /2013 [facility] 7-xc18507a9 b6d [place] S. Refill [id number] 05/15 05/15 Andreas Benton MD 59-482e-97a /2013 [facility] a-b62y8q3tb 60b [place] S. Refill [id number]-32 05/15 05/15 Andreas Benton MD d8-8t96-784 /2013 [facility] e-[id number] 103 [place]. Refill [id number]-il 05/15 05/15 Andreas Benton MD 7f-476f-8a7 [facility] c-[id number] 8b5 [place] S. Refill [id number] 05/15 05/15 Andreas Benton MD 40-4708-82c /2013 [facility] 3-22922b2ml f4b [place] S. Refill [id number]-v4 05/15 05/15 Andreas Benton MD b9-49n6-6si [facility] 6-jo63re325 951 [place]. Refill [id number] 05/15 05/15 Andreas Benton MD 8a-4554-86d [facility] a-3978wbaw3 000 [place] S. Refill [id number]-s8 05/15 05/15 Andreas Benton MD 26-3u6s-1w8 [facility] 7-0tom72w27 080 [place]. Refill [id number] 05/15 05/15 Andreas Benton MD 06-42eb-bcb /2013 [facility] 6-wnk7h0f75 e6d [place] S. Refill [id number]-[id number] 05/15 05/15 Andreas Benton MD 4c-06v3-a85 [facility] 4-43bv7n3l6 263 [place] S. Refill [id number] 05/15 05/15 Andreas Benton MD 8d-2a3b-ri7 [facility] 2-[id number] 9be [place] S. Refill [id number] 05/15 05/15 Andreas Benton MD 57-4447-ba2 /2013 [facility] c-wp78pya2k 826 [place]. Refill [id number]-[id number] 05/15 05/15 Andreas Benton MD 1c-4201-bd5 /2013 [facility] 3-0cx02bufz ccc [place] S. Refill [id number] 05/15 05/15 Andreas Benton MD 98-41ff-aab /2013 [facility] 6-dk0779w47 64d [place] S. Refill [id number] 05/15 05/15 Andreas Benton MD 69-83t5-659 /2013 [facility] 1-bn085381o 0b8 [place]. Refill [id number]-44 05/15 05/15 Andreas Benton MD 52-7q96-402 /2013 [facility] e-tzm4125j7 390 [place] S. Refill [id number] 05/15 05/15 Andreas Benton MD fd-3a60-yk8 /2013 [facility] f-[id number] 5c0 [place]. Unknown [id number]-z5 06/11 06/11 Andreas Benton MD 0f-3v19-yo7 /2013 [facility] 8-a2pm524b7 71e [place]. Unknown [id number] 06/11 06/11 Andreas Benton MD 0f-0lw6-11a /2013 [facility] b-[id number] f4b [place]. Unknown [id number]-99 06/11 06/11 Andreas Benton MD af-4261-b84 /2013 [facility] e-[id number] c2e [place]. Unknown [id number] 06/11 06/11 Andreas Benton MD 80-9l6f-11r /2013 [facility] f-[id number] 08b [place]. Unknown [id number] 06/11 06/11 Andreas Benton MD 72-4959-833 /2013 [facility] c-7t3t16qc9 611 [place]. Unknown [id number] 06/11 06/11 Andreas Benton MD ed-4452-933 /2013 [facility] 3-90uye89u4 935 [place]. Unknown [id number]-89 06/11 06/11 Andreas Benton MD 5e-4cac-81d /2013 [facility] 9-e89m54bbx dec [place] S. Unknown [id number] 06/11 06/11 Andreas Benton MD 57-3v2a-634 /2013 [facility] 6-0415cs443 9a9 [place]. Unknown [id number] 06/11 06/11 Andreas Benton MD 12-3n93-m0z /2013 [facility] 3-[id number] 092 [place] S. Unknown [id number] 06/11 06/11 Andreas Benton MD [id number] /2013 [facility] e-[id number] dcc P[place]ie S. Unknown [id number] 06/11 06/11 Andreas Benton MD aa-4514-90b /2013 [facility] [id number] 7e7 P[place] S. Unknown [id number] 06/11 06/11 Andreas Benton MD 07-1kf3-4i2 /2013 [facility] [id number] f0d P[place]ie S. Unknown [id number] 06/11 06/11 Andreas Benton MD 1e-8f18-bo3 /2013 [facility] [id number] 1d8 P[place] S. Unknown [id number] 06/11 06/11 Andreas Benton MD e1-42bf-83d /2013 [facility] f-[id number] b20 P[place]ie S. Unknown [id number] 06/11 06/11 Andreas Benton MD ef-431d-a4f /2013 [facility] e-[id number] ccb P[place] S. Unknown [id number] 06/11 06/11 Andreas Benton MD 6a-4449-a6a /2013 [facility] [id number] 762 [place] S. Unknown [id number] 06/11 06/11 Andreas Benton MD 79-4s4s-92q /2013 [facility] 7-[id number] 650 [place] S. Unknown [id number] 06/11 06/11 Andreas Benton MD [id number] /2013 [facility] [id number] 576 [place] S. Unknown [id number] 06/11 06/11 Andreas Benton MD 2a-4250-ada /2013 [facility] [id number] 349 [place] S. Unknown [id number] 06/11 06/11 Andreas Benton MD dd-4639-969 /2013 [facility] [id number] bee P[place]ie S. Unknown [id number] 06/11 06/11 Andreas Benton MD fc-8q4y-k30 /2013 [facility] a-[id number] 4f4 P[place]ie S. add [id number] 07/14 07/14 Andreas Benton MD 96-19j8-791 /2014 [facility] [id number] 4d2 P[place] S. add [id number] 07/14 07/14 Andreas Benton MD fe-43cf-87a /2014 [facility] [id number] ebd P[place]ie S. add [id number] 07/14 07/14 Andreas Benton MD aa-5g78-ymu /2014 [facility] [id number] 62b P[place]ie S. add [id number] 07/14 07/14 Andreas Benton MD 08-8b34-73n /2014 [facility] 2-[id number] a5c P[place]ie S. add [id number] 07/14 07/14 Andreas Benton MD e1-4323-a6e /2014 [facility] [id number] c22 P[place]ie S. add [id number] 07/14 07/14 Andreas Benton MD e6-4752-b44 /2014 [facility] e-[id number] 466 [place] S. add [id number] 07/14 07/14 Andreas Benton MD da-4674-bad /2014 [facility] [id number] c41 P[place] S. add [id number] 07/14 07/14 Andreas Benton MD 09-33d5-6r7 [facility] 8-[id number] f23 P[place] S. add [id number] 07/14 07/14 Andreas Bneton MD 0a-481b-921 /2014 [facility] 0-[id number] 00c P[place]ie S. add [id number] 07/14 07/14 Andreas Benton MD 84-4240-b00 /2014 [facility] e-[id number] 601 [place] S. add [id number] 07/14 07/14 Andreas Benton MD 02-431c-93e /2014 [facility] e-[id number] 4bd P[place]ie S. add [id number] 07/14 07/14 Andreas Bentno MD 46-22g0-pst /2014 [facility] d-[id number] 07a P[place]ie S. add [id number] 07/14 07/14 Andreas Benton MD 2c-14u8-c13 /2014 [facility] 0-[id number] 901 P[place]ie S. add [id number] 07/14 07/14 Andreas Benton MD f6-48ba-bf3 /2014 [facility] [id number] 8c0 P[place] S. add [id number] 07/14 07/14 Andreas Benton MD 82-1g0m-n69 /2014 [facility] [id number] nicki P[place]ie S. add [id number] 07/14 07/14 Andreas Benton MD d1-4195-8cb /2014 [facility] [id number] c5a P[place] S. add [id number] 07/14 07/14 Andreas Benton MD 46-2f1q-3w6 /2014 [facility] c-[id number] 720 [place] S. add [id number] 07/14 07/14 Andreas Benton MD e5-1y9o-14v /2014 [facility] d-[id number] db7 P[place]ie S. add [id number] 07/14 07/14 Andreas Benton MD b1-13h9-a73 /2014 [facility] [id number] be3 P[place]ie S. add [id number] 07/14 07/14 Andreas Benton MD f6-40ca-jennifer /2014 [facility] 5-[id number] 331 P[place]ie S. Refill [id number] 08/01 08/01 Andreas Benton MD 47-81r3-0ro /2014 [facility] a-[id number] 0f9 P[place]ie S. Refill [id number] 08/01 08/01 Andreas Benton MD 47-43de-be6 /2014 [facility] [id number] 7f8 P[place]ie S. Refill [id number] 08/01 08/01 Andreas Benton MD 2e-8mo6-0z6 [facility] 6-[id number] 050 [place] S. Refill [id number] 08/01 08/01 Andreas Benton MD 29-40bd-b52 /2014 [facility] [id number]-[id number] 64c P[place]ie S. Refill [id number] 08/01 08/01 Andreas Benton MD 98-8wc9-710 /2014 [facility] 1-[id number] 3f3 P[place] S. Refill [id number] 08/01 08/01 Andreas Benton MD 59-92y4-y7e /2014 [facility] 1-[id number] 769 [place] S. Refill [id number] 08/01 08/01 Andreas Benton MD a0-445f-91f /2014 [facility] [id number] 421 [place] S. Refill [id number] 08/01 08/01 Andreas Benton MD 34-6pu7-i1u /2014 [facility] 1-[id number] f3b P[place]ie S. Refill [id number] 08/01 08/01 Andreas Benton MD da-4962-ba3 /2014 [facility] [facility] d-[id number] 825 [place]. Refill m0tk90z3-r4 08/01 08/01 Andreas Benton MD ad-4q3c-6o8 /2014 [facility] 6-u0p035jv0 c23 [place]. Refill [id number]-h5 08/01 08/01 Andreas Benton MD 29-4cbb-b99 /2014 [facility] 2-9n39dp8bg 934 [place] [address]. Refill 4711zsu8-78 08/01 08/01 Andreas Benton MD 19-8v53-k87 /2014 [facility] 2-x1151i0gx shirley [place] S. Refill 998p42vz-8r 08/01 08/01 Andreas Benton MD 37-91u4-524 /2014 [facility] a-[id number] 112 [place] [address]. Refill [id number]-y3 08/01 08/01 Andreas Benton MD 2e-42r9-dtn /2014 [facility] 8-6o2005l9p bfe [place]. Refill [id number]-u9 08/01 08/01 Andreas Benton MD df-464c-8c4 /2014 [facility] 3-22197y8d8 c45 [place]. Refill [id number]-t0 08/01 08/01 Andreas Benton MD 2e-96b7-726 /2014 [facility] 5-7q3v8l489 0b9 [place]. Refill r4kjg05m-0o 08/01 08/01 Andreas Benton MD 5d-73v1-a79 /2014 [facility] 1-[id number] 960 [place] [address]. Refill [id number]-09 08/01 08/01 Andreas Benton MD f2-4879-aab /2014 [facility] 4-g132c013t e12 [place]. Refill 7k30w6e2-0h 08/01 08/01 Andreas Benton MD e6-4540-80f /2014 [facility] 0-l49ls24ck 22f [place] S. Refill [id number]-vc 08/01 08/01 Andreas Benton MD 89-3kk7-4lu /2014 [facility] [id number] 10e [place]. Unknown [id number] 09/05 09/05 Andreas Benton MD 18-5z07-xf8 /2014 [facility] 0-09w61t9if 237 [place] [address]. Unknown [id number] 09/05 09/05 Andreas Benton MD af-4405-903 /2014 [facility] 6-su51525o8 267 [place] [address]. Unknown [id number] 09/05 09/05 Andreas Benton MD 6f-0g4w-593 /2014 [facility] 9-6q2m2l8q8 ad0 [place]. Unknown 9b48vc4e-48 09/05 09/05 Andreas Benton MD bd-4075-a1e /2014 [facility] b-m4624jzfr dda [place]. Unknown 3y2appx4-38 09/05 09/05 Andreas Benton MD 3d-4an5-976 /2014 [facility] b-f7i02gx8m c99 [place]. Unknown 9d849i3i-16 09/05 09/05 Andreas Benton MD aa-477d-a7e /2014 [facility] f-md01f51x2 230 [place] [address]. Unknown 12k95t1h-0d 09/05 09/05 Andreas Benton MD 08-4404-a5b /2014 [facility] [id number] 530 [place] [address]. Unknown [id number]-m5 09/05 09/05 Andreas Benton MD ed-7g00-n78 /2014 [facility] e-[id number] 32e [place]. Unknown [id number] 09/05 09/05 Andreas Benton, 98-4457-bc7 /2014 [facility] e-l203q3312 1a9 [place]. Unknown x7o1061m-96 09/05 09/05 Andreas Benton, f1-4eef-8e7 /2014 [facility] e-8qv65fs9n 3e5 [place]. Unknown [id number] 09/05 09/05 Andreas Benton MD fb-4cfb-b55 /2014 [facility] d-ss08mt90m 31f [place]. Unknown m7prpriw-9h 09/05 09/05 Andreas Benton, 67-4084-978 /2014 [facility] [id number] ec4 [place]. Unknown [id number] 09/05 09/05 Andreas Benton, 2f-3cj3-m0w /2014 [facility] f-777u50sq1 982 [place] [address]. Unknown ss97gj92-xp 09/05 09/05 Andreas Benton MD 00-4bbd-bce /2014 [facility] 6-e4j8k73rk 6cd [place]. Unknown 77smg9l2-87 09/05 09/05 Andreas Benton MD 01-493e-a84 /2014 [facility] 5-gy1bw1005 27e [place]. Unknown 3p1s774m-48 09/05 09/05 Andreas Benton MD bb-0y46-7l1 /2014 [facility] 8-u5f8bb93a 5a5 [place]. Unknown [id number] 09/05 09/05 Andreas Benton MD eb-9u49-0gw /2014 [facility] 1-83e52w2py d0e [place]. Unknown [id number] 09/05 09/05 Andreas Benton MD 49-3r66-7ss /2014 [facility] 2-91dc7v3c7 eb1 [place]. Unknown [id number] 09/05 09/05 Andreas Benton MD 0a-1r20-wh9 /2014 [facility] 5-7y357xtbz 29e [place]. ADD 2li242a9-tz 11/17 11/17 Andreas Benton MD c6-7z54-g20 /2014 [facility] 4-136363e7r 5f9 [place]. ADD 95r2ym99-89 11/17 11/17 Andreas Benton MD 05-4972-8e8 /2014 [facility] 3-1940w1294 0a1 [place]. ADD 7j76902p-7g 11/17 11/17 Andreas Benton MD 88-86t3-3u2 /2014 [facility] 9-2393v1358 10f [place] S. ADD x89a06q2-05 11/17 11/17 Andreas Benton MD 93-3gq6-m88 /2014 [facility] 8-3981p6626 244 [place] [address]. ADD j6f2v495-64 11/17 11/17 Andreas Benton MD d7-40fd-946 /2014 [facility] 1-994n38k2l fa9 [place]. ADD 2m42xo8j-45 11/17 11/17 Andreas Benton MD 16-4246-aa9 [facility] 8-0rood30n1 7b5 [place]. ADD et4uhx46-45 11/17 11/17 Andreas Benton MD b1-4105-9b4 [facility] c-[id number] df2 [place]. ADD 6760t8tf-64 11/17 11/17 Andreas Benton MD 0c-42ce-b22 /2014 [facility] 1-r5vg38w3m a50 [place]. ADD x3oyv70g-5h 11/17 11/17 Andreas Benton MD 7d-49eb-b44 /2014 [facility] 1-m74491e3v 292 [place] [address]. ADD q4138i69-zr 11/17 11/17 Andreas Benton MD db-471d-a38 /2014 [facility] 3-576pqre2r 18b [place]. ADD [id number] 11/17 11/17 Andreas Benton MD cd-498d-9f3 /2014 [facility] 9-g32620w97 27e [place]. ADD 55q45k90-5r 11/17 11/17 Andreas Benton MD 6c-459f-958 /2014 [facility] 7-z35wk01f0 02e [place]. ADD y549q0yl-s4 11/17 11/17 Andreas Benton MD 7a-4917-a9c /2014 [facility] c-0046v2kp5 77d [place]. ADD 7j6t93xe-1g 11/17 11/17 Andreas Benton MD 6d-489e-af8 /2014 [facility] 9-51912722x 4c3 [place]. ADD 89iph965-38 11/17 11/17 Andreas Benton MD 09-51q4-yy4 /2014 [facility] 3-0i65104su cc2 [place]. ADD 196c3533-nr 11/17 11/17 Andreas Benton MD 3a-1f76-06g [facility] 7-6x261n734 c4e [place] S. ADD 3t90a599-04 11/17 11/17 Andreas Benton MD 70-4942-b36 /2014 [facility] 4-25c412yte fac [place]. ADD 2lsrt3p8-5w 11/17 11/17 Andreas Benton MD d2-43v0-578 [facility] 9-kyq3b3n1h 8da [place]. ADD 62174d5q-v0 11/17 11/17 Andreas Benton MD 93-454f-a04 [facility] c-554ooo925 b7c [place] S. Refill 48xbm524-5e 12/16 12/16 Andreas Benton MD 0d-04n2-76d /2014 [facility] 8-o858u5458 0ba [place]. Refill 77f7pp10-c9 12/16 12/16 Andreas Benton MD f0-4bff-b7f /2014 [facility] 2-5i0h561i3 734 [place] [address]. Refill 556l288a-7h 12/16 12/16 Andreas Benton MD a6-43cc-819 /2014 [facility] 4-37375330o 657 [place] [address]. Refill 51106g3g-3c 12/16 12/16 Andreas Benton MD 96-486c-9ef /2014 [facility] d-5147595i2 683 [place] [address]. Refill 2078fj6i-48 12/16 12/16 Andreas Benton MD 01-4665-8c0 /2014 [facility] 4-wz57wwi73 b6b [place] S. Refill 730di355-a5 12/16 12/16 Andreas Benton MD 0d-40ae-87d /2014 [facility] 7-lbo74ctqq 939 [place] [address]. Refill 4v067j54-rj 12/16 12/16 Andreas Benton MD e5-4fae-9e6 /2014 [facility] 6-ck1u864f5 ad0 [place]. Refill 0b0d1pu5-x4 12/16 12/16 Andreas Benton MD 6d-46j5-e44 /2014 [facility] 9-86j66z9f5 606 [place] [address]. Refill 05y0g96j-3d 12/16 12/16 Andreas Benton MD f2-55y2-771 /2014 [facility] 3-se29414ea b70 [place]. Refill jl782194-61 12/16 12/16 Andreas Benton MD 25-47af-80a /2014 [facility] 8-352ej486e 4fa [place] S. Refill 82054uvu-4r 12/16 12/16 Andreas Benton MD f4-42u6-8fe /2014 [facility] 1-1b9aa92wp 6c3 [place] S. Refill [id number] 12/16 12/16 Andreas Benton MD a6-4e6d-5we /2014 [facility] 1-62924dy74 4fd [place] S. Refill 7a9qctmc-63 12/16 12/16 Andreas Benton MD 15-410f-a98 /2014 [facility] e-95m77pz19 a80 [place]. Refill 0n03z3d3-46 12/16 12/16 Andreas Benton MD 8d-0k76-02w /2014 [facility] 9-c63w5hq5a e35 [place] S. Refill 329x88kb-11 12/16 12/16 Andreas Benton MD 8d-400a-9f3 /2014 [facility] b-[id number] 587 [place] [address]. Refill [id number] 12/16 12/16 Andreas Benton MD 4b-4887-b06 /2014 [facility] 3-7p8h46jt7 701 [place] [address]. Refill tcio4u4t-3g 12/16 12/16 Andreas Benton MD 1e-419f-ba7 /2014 [facility] a-h838w8f37 3bf [place] S. Refill 8914j25z-ho 12/16 12/16 Andreas Benton MD 43-4160-a03 /2014 [facility] c-[id number] 411 [place] [address]. Refill e3859162-20 12/16 12/16 Andreas Benton MD fb-3pq9-13n /2014 [facility] 0-5284zi80k bd2 [place]. Refill q8i82bcl-49 01/19 01/19 Andreas Benton MD 2d-81l1-399 /2014 [facility] a-2p114zj1f 57c [place]. Refill j7al263b-4j 01/19 01/19 Andreas Benton MD 67-5y32-s86 /2014 [facility] 4-743s1x1b8 571 [place] [address]. Refill 27m688b5-y9 01/19 01/19 Andreas Benton MD e2-6y87-534 /2014 [facility] 0-0221sn811 35b [place] S. Refill d05wm5io-r2 01/19 01/19 Andreas Benton MD 45-43dc-981 /2014 [facility] c-xl0m4w4bh db3 [place] S. Refill 93tf832u-41 01/19 01/19 Andreas Benton MD dc-81d9-bon /2014 [facility] 1-81ji164xn cdd [place] S. Refill 5l8318t1-f2 01/19 01/19 Andreas Benton MD 78-1g76-uf3 /2014 [facility] d-[id number] 317 [place] [address]. Refill 282dm21n-93 01/19 01/19 Andreas Benton MD b0-4879-af7 /2014 [facility] 8-tte1q3308 5c6 [place] S. Refill 81342w78-7n 01/19 01/19 Andreas Benton MD a7-3e59-bp6 /2014 [facility] d-x120le09b f46 [place]. Refill p9499o86-21 01/19 01/19 Andreas Benton MD c3-6d8r-497 /2014 [facility] b-55yrkp335 909 [place] [address]. Refill 52a23960-75 01/19 01/19 Andreas Benton MD ba-407f-859 /2014 [facility] a-0t7a9s973 9d1 [place] S. Refill 86450672-58 01/19 01/19 Andreas Benton MD da-1m33-qc6 /2014 [facility] 4-7j68v7b7j 38c [place] S. Refill 0r5pa51b-zp 01/19 01/19 Andreas Benton MD b4-478c-9b0 [facility] 5-4578umgq1 0b8 [place] S. Refill 047z65x6-e6 01/19 01/19 Andreas Benton MD 14-1x54-39p /2014 [facility] 5-0b79k3033 d13 [place] S. Refill 916y61bj-r1 01/19 01/19 Andreas Benton MD c4-41fb-966 /2014 [facility] c-wp0849z28 ea4 [place]. Refill 2ftcs5k3-7c 01/19 01/19 Andreas Benton MD 6b-6ij9-a69 /2014 [facility] 9-x626ssmns 536 [place]. Refill 9rr67x6b-8i 01/19 01/19 Andreas Benton MD a4-0pj7-359 /2014 [facility] 9-26491u919 e59 Andreas S. Refill 9m5s1a9e-78 01/19 01/19 Andreas Benton MD 8f-4196-95f /2014 [facility] 0-61ks0415y a2f [place] S. Refill a836nz1n-la 01/19 01/19 Andreas Benton MD 07-460e-8e1 /2014 [facility] f-0jw38cy3s f61 [place]. BACK PAIN v4sm4i8k-dk 01/29 01/29 Andreas Benton MD 3b-04p7-309 /2014 [facility] 9-52p7o860s 90f [place]. BACK PAIN b30i31yq-01 01/29 01/29 Andreas Benton MD b0-4839-bbe /2014 [facility] 0-961408pqp d60 [place]. BACK PAIN i89f7g8v-h3 01/29 01/29 Andreas Benton MD 59-57p3-153 /2014 [facility] 2-0005k81z5 c9e [place]. BACK PAIN 6120395v-ik 01/29 01/29 Andreas Benton MD 28-78h2-317 /2014 [facility] 6-6wmx49wog d4b [place] S. BACK PAIN 81p1ft19-r1 01/29 01/29 Andreas Benton MD 9d-4867-ab8 /2014 [facility] 6-rgmx6ueu8 87c [place] S. BACK PAIN w4r776rc-13 01/29 01/29 Andreas Benton MD e9-44ce-b9c /2014 [facility] 0-97fby68c1 dd9 [place] S. BACK PAIN 7p72yoor-87 01/29 01/29 Andreas Benton MD 56-81b3-953 /2014 [facility] 9-2me8e0646 563 [place]. BACK PAIN 79c67u08-67 01/29 01/29 Andreas Benton MD b1-4dff-bd5 /2014 [facility] 1-p5qvo6cc7 590 [place]. BACK PAIN 4l0yl19r-02 01/29 01/29 Andreas Benton MD 58-2s12-175 /2014 [facility] 2-25ty32615 c61 [place]. BACK PAIN hw6q46a6-i1 01/29 01/29 Andreas Benton MD c2-3n88-fbe /2014 [facility] f-r02t74k5t 502 [place]. BACK PAIN 0x571r85-5h 01/29 01/29 Andreas Benton MD c8-45cc-9f9 /2014 [facility] 9-3825519hy a0b [place]. BACK PAIN 278o2m2n-47 01/29 01/29 Andreas Benton MD 8e-1nd8-97o /2014 [facility] 5-0g093u043 c65 [place] S. BACK PAIN 6z009r27-p1 01/29 01/29 Andreas Benton MD 46-2ym6-3o6 /2014 [facility] 6-ju47en976 3e6 [place] S. BACK PAIN 67789c9g-0s 01/29 01/29 Andreas Benton MD 56-461e-90a /2014 [facility] b-6qez12s2a b3d [place] S. BACK PAIN a2oy8pys-36 01/29 01/29 Andreas Benton MD 7d-4dde-871 /2014 [facility] b-[id number] 991 [place] S. BACK PAIN 88p3fzie-26 01/29 01/29 Andreas Benton MD 97-6p89-605 /2014 [facility] [id number] 0a8 [place] S. BACK PAIN 962i7g0q-zs 01/29 01/29 Andreas Benton MD 60-5g5c-1l9 /2014 [facility] 6-927088w46 3f5 [place] S. BACK PAIN 9t67189u-76 01/29 01/29 Andreas Benton MD 72-4fea-925 /2014 [facility] 4-dh9zbcd7o 135 [place]. Refill 42l7s96z-hn 02/20 02/20 Andreas Benton MD aa-6k5m-602 /2014 [facility] 8-7a5k791q4 1a3 [place] S. Refill x727816v-72 02/20 02/20 Andreas Benton MD 6d-9d4a-irw /2014 [facility] a-m2dczm0t6 ec4 [place] S. Refill we01f6tr-58 02/20 02/20 Andreas Benton MD 11-47bf-b3a /2014 [facility] 1-672q955e3 6ab [place] S. Refill 95l9o3jc-26 02/20 02/20 Andreas Benton MD 34-42cc-a04 /2014 [facility] 7-5c62s1wz7 99c [place] S. Refill 7h9do9u4-oa 02/20 02/20 Andreas Benton MD 71-420f-813 /2014 [facility] d-997320w86 0b4 [place] S. Refill 76u64p5e-74 02/20 02/20 Andreas Benton MD 76-20d6-vv1 /2014 [facility] 7-4384eb752 3bc [place] S. Refill [id number]-of 02/20 02/20 Andreas Benton MD 9c-4ded-b1 /2014 [facility] 3-83rt0s462 967 [place] S. Refill 982g15r2-fw 02/20 02/20 Andreas Benton MD df-6oi5-r74 /2014 [facility] b-546imivp9 c79 [place] S. Refill fhk31w13-qw 02/20 02/20 Andreas Benton MD fe-4407-8b5 [facility] 9-5107234vy c5a [place] S. Refill t3ma29e7-ls 02/20 02/20 Andreas Benton MD 70-476f-a49 /2014 [facility] 1-zr97wk3kk 2b3 [place] S. Refill 2335m73x-r1 02/20 02/20 Andreas Benton MD 13-75p8-rz7 /2014 [facility] a-92b0g7y11 a8e [place] S. Refill [id number] 02/20 02/20 Andreas Benton MD d3-4yi1-d95 /2014 [facility] 4-49f1bm8zs 0e9 [place] S. Refill 69k4i4j8-k8 02/20 02/20 Andreas Benton MD 86-421c-8d0 /2014 [facility] 4-d4312s729 497 [place] S. Refill 20p5r61v-ll 02/20 02/20 Andreas Benton MD db-05p9-h22 /2014 [facility] 4-t49xk1081 22e [place] S. Refill y5q3w533-xm 02/20 02/20 Andreas Benton MD 8a-4244-afb /2014 [facility] a-417853h24 c60 [place] S. Refill 0662g621-zp 02/20 02/20 Andreas Benton MD 37-1r81-c84 /2014 [facility] 2-7k43b7g2m 3e6 [place] S. Refill u8aord09-5g 02/20 02/20 Andreas Benton MD d9-81i7-324 /2014 [facility] 7-2c45ecf0q 73e [place] S. adderall ta6il4aj-g1 03/19 03/19 Andreas Benton MD f3-8x3f-eft /2014 [facility] b-[id number] 212 [place] S. adderall 3599b06x-2i 03/19 03/19 Andreas Benton MD 2e-4fae-924 /2014 [facility] 0-5119q19vu 807 [place] S. adderall 5u82x7m2-19 03/19 03/19 Andreas Benton MD 42-85j1-ja9 /2014 [facility] 9-md0a5r3qs 1f1 Kalieie S. adderall 607515b5-h4 03/19 03/19 Andreas Benton MD a3-4a9r-336 /2014 [facility] b-[id number] 09f [place] S. adderall [id number] 03/19 03/19 Andreas Benton MD b8-9z85-o47 /2014 [facility] 0-8xmua2f85 f2d [place] S. adderall 9ygi003o-3a 03/19 03/19 Andreas Benton MD c7-499b-b1f /2014 [facility] 7-zx582x81q 77c Andreas S. adderall [id number]-a7 03/19 03/19 Andreas Benton MD 2d-4009-866 /2014 [facility] 6-6517566h0 d0a Andreas S. adderall m8k947s8-99 03/19 03/19 Andreas Benton MD b3-7o49-61h /2014 [facility] b-15c0c17o4 115 Andreas S. adderall tqanzp89-01 03/19 03/19 Andreas Benton MD 9d-40fd-rebecca /2014 [facility] f-o5h7z3wl7 483 Andreas S. adderall 732s7ig3-m2 03/19 03/19 Andreas Benton MD ed-4939-bc6 /2014 [facility] d-7lu49ahzs cd6 Andreas S. adderall og615twu-en 03/19 03/19 Andreas Benton MD 8d-7w67-xkb /2014 [facility] 4-[id number] 03d Andreas S. adderall 959n77c0-91 03/19 03/19 Andreas Benton MD 84-4231-a16 [facility] [id number] 112 Andreas S. adderall 69joi3f4-2g 03/19 03/19 Andreas Benton MD 84-6al4-yd8 [facility] 1-50q1t0ft3 b2b Andreas S. adderall 5be19q58-h7 03/19 03/19 Andreas Benton MD 74-43ff-b7c /2014 [facility] 5-5k57q5646 a01 Andreas S. adderall j20v5o9l-tb 03/19 03/19 Andreas Benton MD 32-449f-a44 /2014 [facility] 2-63gs380d2 c21 Andreas S. adderall 65564l87-08 03/19 03/19 Andreas Benton MD eb-7nq7-m21 /2014 [facility] 7-6pvi845p1 ecf Pachie S. MEDS. p346c3js-b3 04/23 04/23 Andreas Benton MD 40-2im9-po9 /2014 [facility] 4-[id number] fc1 Pachie S. MEDS. [id number]-zu 04/23 04/23 Andreas Benton MD 7d-7m6d-99b /2014 [facility] 0-5590374g6 111 [place]ie S. MEDS. b2f20vm0-h6 04/23 04/23 Andreas Benton MD a1-41af-aea /2014 [facility] 3-0e4907kww 6af P[place]ie S. MEDS. v855wl42-4a 04/23 04/23 Andreas Benton MD 04-61k5-k7j /2014 [facility] d-[id number] a43 Pachie S. MEDS. 7bp35027-43 04/23 04/23 Andreas Benton MD db-8h5a-57j /2014 [facility] d-[id number] 291 [place]ie S. MEDS. 77ek2l74-72 04/23 04/23 Andreas Benton MD a3-3sz3-s1p /2014 [facility] f-[id number] 140 [place]ie S. MEDS. fp0wf8p7-c9 04/23 04/23 Andreas Benton MD b9-4a59-om0 /2014 [facility] d-u8v578k03 33f Pachie S. MEDS. 176k4565-y2 04/23 04/23 Andreas Benton MD 8b-468f-bd1 /2014 [facility] 7-3590bo65i d13 Pachie S. MEDS. 7q1c9mc2-00 04/23 04/23 Andreas Benton MD 5e-445b-99d /2014 [facility] 5-r0l992l67 4ec Pachie S. MEDS. 0h15305c-1c 04/23 04/23 Andreas Benton MD e9-4afd-8c4 /2014 [facility] d-ko9a4d905 c16 Pachie S. MEDS. 7703r496-8k 04/23 04/23 Andreas Benton MD 08-3co1-49t /2014 [facility] d-gru80421d cdf Pachie S. MEDS. m0791rb0-n0 04/23 04/23 Andreas Benton MD bc-440b-931 /2014 [facility] 3-0859981f1 51a Pachie S. MEDS. [id number] 04/23 04/23 Andreas Benton MD 8f-4579-9b9 /2014 [facility] 9-at4217g1s 7f3 Pachie S. MEDS. [id number] 04/23 04/23 Andreas Benton MD [id number] /2014 [facility] [id number] f6e [facility]. [id number] 04/23 04/23 Andreas Benton MD [id number] /2014 [facility] 6-[id number] 4a6 [facility] [facility] [id number] 04/23 04/23 Andreas Benton MD [id number] /2014 [facility] [id number] 10e [facility]ie S. Refill [id number] 05/22 05/22 Andreas Benton MD 1e-5t54-0m8 /2014 [facility] c-[id number] 417 [facility] S. Refill [id number] 05/22 05/22 Andreas Benton MD cc-3ng1-[id number] /2014 [facility] [id number] 1bb [facility]ie S. Refill [id number] 05/22 05/22 Andreas Benton MD [id number]-3h84-87y /2014 [facility] [id number] db3 [facility]ie S. Refill [id number] 05/22 05/22 Andreas Benton MD [id number]-a36 /2014 [facility] [id number] 6c7 [facility] S. Refill [id number] 05/22 05/22 Andreas Benton MD [id number] /2014 [facility] [id number] d68 [facility] S. Refill [id number] 05/22 05/22 Andraes Benton MD [id number] /2014 [facility] [id number] f8a [facility]ie S. Refill [id number] 05/22 05/22 Andreas Benton MD [id number] /2014 [facility] 7-[id number] 0dc P[facility]ie S. Refill [id number] 05/22 05/22 Andreas Benton MD 8d-47fb-9b0 /2014 [facility] b-[id number] a48 [facility] S. Refill [id number] 05/22 05/22 Andreas Benton MD fc-45fe-a8b /2014 [facility] 9-[id number] 6a1 [facility]ie S. Refill [id number] 05/22 05/22 Andreas Benton MD [id number]-b03 /2014 [facility] b-[id number] 5d2 [facility] S. Refill [id number] 05/22 05/22 Andreas Benton MD [id number]-m46 /2014 [facility] [id number] be3 [facility] S. Refill [id number] 05/22 05/22 Andreas Benton MD df-46ab-95e /2014 [facility] [id number] 0cd [facility]ie S. Refill [id number]-70 05/22 05/22 Andreas Benton MD cf-4196-a88 /2014 [facility] 8-[id number] db2 [facility]ie S. Refill [id number] 05/22 05/22 Andreas Benton MD 8d-1yj8-5y6 /2014 [facility] [id number] 888 [facility] S. Refill [id number] 05/22 05/22 Andreas Benton MD [id number]-a7c /2014 [facility] [id number] 9fa [facility]ie S. Refill [id number] 05/28 05/28 Andreas Benton MD 75-30q0-24e /2014 [facility] [id number] 172 [facility] S. Refill [id number] 05/28 05/28 Andreas Benton MD 5a-4710-a19 /2014 [facility] b-[id number] 1db P[facility]ie S. Refill [id number] 05/28 05/28 Andreas Benton MD 36-495a-a65 /2014 [facility] [id number] e4f [facility]ie S. Refill [id number]-82 05/28 05/28 Andreas Benton MD 83-6o76-y8v /2014 [facility] 1-[id number] 2fc [facility]ie S. Refill [id number]-37 05/28 05/28 Andreas Benton MD fd-400e-82c /2014 [facility] 0-[id number] df1 [facility] S. Refill [id number]-h4 05/28 05/28 Andreas Benton MD 3a-4fcd-8bf /2014 [facility] [id number] aa2 [facility] S. Refill [id number] 05/28 05/28 Andreas Benton MD 43-9i0g-025 /2014 [facility] a-[id number] 524 [facility] S. Refill [id number] 05/28 05/28 Andreas Benton MD 07-6y13-17x /2014 [facility] [id number] 8ff P[facility]ie S. Refill [id number] 05/28 05/28 Andreas Benton MD 27-4148-88c /2014 [facility] [id number] bcf P[place]ie S. Refill [id number] 05/28 05/28 Andreas Benton MD [id number] /2014 [facility] d-[id number] 638 [facility] S. Refill [id number] 05/28 05/28 Andreas Benton MD 2a-30s8-7rn /2014 [facility] [id number] f68 [facility] S. Refill [id number] 05/28 05/28 Andreas Benton MD bf-0dj5-w07 /2014 [facility] 7-[id number] 7c3 [place] S. Refill [id number] 05/28 05/28 Andreas Benton MD 33-4951-8c4 /2014 [facility] b-[id number] 61a [facility] S. Refill [id number] 05/28 05/28 Andreas Benton MD 5a-4448-a11 /2014 [facility] [id number] 122 [place] S. Refill [id number] 06/19 06/19 Andreas Benton MD 85-4bu8-ckc /2015 [facility] d-[id number] c72 [facility]ie S. Refill [id number] 06/19 06/19 Andreas Benton MD 77-9v9e-w6h /2015 [facility] 2-[id number] fdf [facility]ie S. Refill [id number] 06/19 06/19 Andreas Benton MD 34-4282-9f7 /2015 [facility] [id number] 13e [facility]ie S. Refill [id number] 06/19 06/19 Andreas Benton MD 1a-4231-9f9 /2015 [facility] 0-[id number] 139 [place] S. Refill [id number]-03 06/19 06/19 Andreas Benton MD 69-4833-ac6 /2015 [facility] 5-[id number] educational psychologist [facility] S. Refill [id number] 06/19 06/19 Andreas Benton MD ac-36m3-j97 /2015 [facility] [id number] 5a3 [facility] S. Refill [id number] 06/19 06/19 Andreas Benton MD f2-6y22-5qu /2015 [facility] [id number] 82f [facility] S. Refill [id number] 06/19 06/19 Andreas Benton MD 0d-27f8-579 /2015 [facility] 6-340do99r1 760 [place] S. Refill [id number] 06/19 06/19 Andreas Benton MD ea-4608-bf0 /2015 [facility] 0-rads2rmpn aa9 [facility] S. Refill [id number] 06/19 06/19 Andreas Benton MD [id number] /2015 [facility] [facility] [id number] 9ef [place] S. Refill [id number] 06/19 06/19 Andreas Benton MD [id number] /2015 [facility] [id number] 254 [place] S. Refill [id number] 06/19 06/19 Andreas Benton MD [id number] /2015 [facility] [id number] 1c1 [place] S. Refill [id number] 06/19 06/19 Andreas Benton MD [id number] /2015 [facility] [id number] 2d7 [place] S. MEDS [id number] 08/05 08/05 Andreas Benton MD [id number] [facility] [id number] 062 [place]. MEDS [id number] 08/05 08/05 Andreas Benton MD [id number] /2015 [facility] [id number] eea [place]. MEDS [id number] 08/05 08/05 Andreas Benton MD [id number] /2015 [facility] [id number] 55a [place]. MEDS [id number] 08/05 08/05 Andreas Benton MD [id number] /2015 [facility] [id number] 565 [place]. MEDS [id number] 08/05 08/05 Andreas Benton MD [id number] [facility] [id number] 7b1 [place]. MEDS [id number] 08/05 08/05 Andreas Benton MD [id number] /2015 [facility] [id number] a9c [place]. MEDS [id number] 08/05 08/05 Andreas Benton MD [id number] /2015 [facility] [id number] 331 [place]. MEDS [id number] 08/05 08/05 Andreas Benton MD [id number] /2015 [facility] [id number] dbf [place]. MEDS [id number] 08/05 08/05 Andreas Benton MD [id number] /2015 [facility] [id number] 621 [place]. MEDS [id number] 08/05 08/05 Andreas Benton MD [id number] /2015 [facility] [id number] 755 [place]. MEDS [id number] 08/05 08/05 Andreas Benton MD [id number] /2015 [facility] [id number] 3af [place]. MEDS [id number] 08/05 08/05 Andreas Benton MD [id number] /2015 [facility] [id number] bb2 [place] S. Refill [id number] 08/11 08/11 Andreas Benton MD [id number] /2015 [facility] [id number] 419 [place] S. Refill [id number] 08/11 08/11 Andreas Benton MD [id number] /2015 [facility] [id number] 0ed [place] S. Refill [id number] 08/11 08/11 Andreas Benton MD [id number] /2015 [facility] [id number] 7c9 [place] S. Refill [id number] 08/11 08/11 Andreas Benton MD [id number] /2015 [facility] [id number] 701 [place] S. Refill [id number] 08/11 08/11 Andreas Benton MD [id number] /2015 [facility] [id number] ce7 [place] S. Refill [id number] 08/11 08/11 Andreas Benton MD [id number] /2015 [facility] [id number] 1af [place] S. Refill [id number] 08/11 08/11 Andreas Benton MD [id number] /2015 [facility] [id number] f85 [place] S. Refill [id number] 08/11 08/11 Andreas Benton MD [id number] /2015 [facility] [id number] b83 [place] S. Refill [id number] 08/11 08/11 Andreas Benton MD [id number] /2015 [facility] [id number] 5f1 [place] S. Refill [id number] 08/11 08/11 Andreas Benton MD [id number] [facility] [id number] 06f [place] S. Refill [id number] 08/11 08/11 Andreas Benton MD [id number] /2015 [facility] [id number] dc7 [place]. BLOOD LOW/ [id number] 09/15 09/15 Andreas Benton MD PASSING OUT [id number] [facility] [id number] 77d [place] S. BLOOD LOW/ [id number] 09/15 09/15 Andreas Benton MD PASSING OUT [id number] /2015 [facility] [id number] 8ca [place]. BLOOD LOW/ [id number] 09/15 09/15 Andreas Benton MD PASSING OUT [id number] [facility] [id number] e98 [place]. BLOOD LOW/ [id number] 09/15 09/15 Andreas Benton MD PASSING OUT [id number] [facility] [id number] f67 [place]. BLOOD LOW/ [id number] 09/15 09/15 Andreas Benton MD PASSING OUT [id number] /2015 [facility] [id number] 91e [place] S. BLOOD LOW/ [id number] 09/15 09/15 Andreas Benton MD PASSING OUT [id number] /2015 [facility] [id number] e89 [place]. BLOOD LOW/ [id number] 09/15 09/15 Andreas Benton MD PASSING OUT [id number] /2015 [facility] [id number] 406 [place]. BLOOD LOW/ [id number] 09/15 09/15 Andreas Betnon MD PASSING OUT [id number] /2015 [facility] [id number] 24a [place]. BLOOD LOW/ [id number] 09/15 09/15 Andreas Benton MD PASSING OUT [id number] /2015 [facility] [id number] e08 [place]. BLOOD LOW/ [id number] 09/15 09/15 Andreas Benton MD PASSING OUT [id number] /2015 [facility] [id number] 239 [place] S. STICHES [id number] 10/01 10/01 Andreas Benton MD REMOVAL [id number] /2015 [facility] [id number] f1f [place] S. STICHES [id number]-e4 10/01 10/01 Andreas Benton MD REMOVAL [id number] /2015 [facility] [id number] 749 [place] S. JERZYHES [id number] 10/01 10/01 Andreas Benton MD REMOVAL [id number] /2015 [facility] [id number] b99 [place]. STICHES [id number] 10/01 10/01 Andreas Benotn MD REMOVAL [id number] /2015 [facility] b-[id number] 6af [place] S. STICHES [id number] 10/01 10/01 Andreas Benton MD REMOVAL [id number] /2015 [facility] [id number] 93f [place] S. STICHES [id number]-md 10/01 10/01 Andreas Benton MD REMOVAL [id number] /2015 [facility] [id number] cf0 [place] S. STICMENDEZ [id number] 10/01 10/01 Andreas Benton MD REMOVAL [id number] /2015 [facility] [id number] c4f [place] S. STICHES [id number] 10/01 10/01 Andreas Benton MD REMOVAL [id number] /2015 [facility] [id number] b55 [place] S. STICMENDEZ [id number] 10/01 10/01 Andreas Benton MD REMOVAL [id number] /2015 [facility] [id number] e30 [place] S. JOCELYN/ [id number] 10/29 10/29 Andreas Benton MD MEDS [id number] /2015 [facility] [id number] ada [place] S. JOCELYN/ [id number] 10/29 10/29 Andreas Benton MD MEDS [id number] /2015 [facility] [id number] a85 [place] S. JOCELYN/ [id number] 10/29 10/29 Andreas Benton MD MEDS [id number] /2015 [facility] [id number] 1a8 [place] S. JOCELYN/ [id number] 10/29 10/29 Andreas Benton MD MEDS [id number] /2015 [facility] [id number] 293 [place] S. JOCELYN/ [id number] 10/29 10/29 Andreas Benton MD MEDS [id number] /2015 [facility] [id number] e6f [place] S. JOCELYN/ [id number] 10/29 10/29 Andreas Benton MD MEDS [id number] /2015 [facility] [id number] 5c1 [place] S. JOCELYN/ [id number] 10/29 10/29 Andreas Benton MD MEDS [id number] /2015 [facility] [id number] 497 [place] S. JOCELYN/ [id number] 10/29 10/29 Andreas Benton MD MEDS [id number] /2015 [facility] [id number] c30 [place] S. Unknown [id number] 11/16 11/16 Andreas Benton, [id number] /2015 [facility] [id number] 1b9 [place] S. Unknown [id number] 11/16 11/16 Andreas Benton MD [id number] /2015 [facility] [id number] 2b4 [place] S. Unknown [id number] 11/16 11/16 Andreas Benton, [id number] /2015 [facility] [id number] 027 [place] S. Unknown [id number] 11/16 11/16 Andreas Benton MD [id number] /2015 [facility] f-[id number] 33a [place] S. Unknown [id number] 11/16 11/16 Andreas Benton MD [id number] /2015 [facility] [id number] 723 [place] S. Unknown [id number] 11/16 11/16 Andreas Benton MD [id number] /2015 [facility] [id number] 996 [place] S. Unknown [id number] 11/16 11/16 Andreas Benton MD [id number] /2015 [facility] a-[id number] 758 [place] S. F/U MEDS [id number] 02/07 02/07 Andreas Benton MD [id number] /2015 [facility] [id number] 42d [place]. F/U MEDS [id number] 02/07 02/07 Andreas Benton MD [id number] /2015 [facility] [id number] c30 [place]. F/U MEDS [id number] 02/07 02/07 Andreas Benton MD [id number] [facility] [id number] cd8 [place] S. F/U MEDS [id number] 02/07 02/07 Andreas Benton MD [id number] /2015 [facility] [id number] 701 [place] S. F/U MEDS [id number] 02/07 02/07 Andreas Benton MD [id number] [facility] [id number] b9e [place] S. F/U MEDS [id number] 02/07 02/07 Andreas Benton MD [id number] /2015 [facility] [id number] b91 [place]. HOSP FU/MED [id number] 04/28 04/28 Andreas Benton MD REFILLS [id number] /2015 [facility] [id number] 251 [place]. HOSP FU/MED [id number] 04/28 04/28 Andreas Benton MD REFILLS [id number] /2015 [facility] [id number] bef [place] [facility] HOSP FU/MED [id number] 04/28 04/28 Andreas Benton MD REFILLS [id number] /2015 [facility] [id number] 7d3 [place] [facility] HOSP FU/MED [id number] 04/28 04/28 Andreas Benton MD REFILLS [id number] /2015 [facility] [id number] 82d [place]. HOSP FU/MED [id number] 04/28 04/28 Andreas Benton MD REFILLS [id number] /2015 [facility] c-[id number] ff1 [place] S. refill-adde [id number] 05/10 05/10 Andreas Benton MD rall [id number] /2015 [facility] [id number] cf5 [place] S. refill-adde [id number] 05/10 05/10 Andreas Benton MD rall [id number] /2015 [facility] [id number] 8ed [place] S. refill-adde [id number] 05/10 05/10 Andreas Benton MD rall [id number] /2015 [facility] [id number] 508 [place] S. refill-adde [id number] 05/10 05/10 Andreas Benton MD rall [id number] /2015 [facility] [id number] 5b8 [place] S. refill-adde [id number] 06/08 06/08 Andreas Benton MD rall [id number] /2015 [facility] [id number] 136 [place] S. refill-adde [id number] 06/08 06/08 Andreas Benton MD rall [id number] /2015 [facility] [id number] e12 [place] S. refill-adde [id number] 06/08 06/08 Andreas Benton MD rall [id number] /2015 [facility] [id number] 4bc [place] S. Refill [id number] 07/07 07/07 Andreas Benton MD [id number] /2016 [facility] [id number] a00 [place] S. Refill [id number] 07/07 07/07 Andreas Benton MD [id number] /2016 [facility] [id number] c9b [place] S. MED REFILL [id number] 08/16 08/16 Andreas Benton MD [id number] [facility] [id number] f0d Procedures Procedure Code Date Perfomer Comments Source
--- OUTSIDE RECORDS SUMMARY | 2018-05-06 13:08 | XMS REPORT ---
[...] Start Date End Date Status Dosage Ativan [facility] [address] 0.5 MG Orally BID Active 1 tablet -01 prn Results No Known Results Summary Purpose eClinicalWorks Submission
--- OUTSIDE RECORDS SUMMARY | 2018-05-06 13:08 | XMS REPORT ---
[...] Date End Date Status Dosage Adderall [facility] [address] 30 MG Orally BID November 17, Active 1 tablet -2016 Results No Known Results Summary Purpose eClinicalWorks Submission
--- OUTSIDE RECORDS SUMMARY | 2018-05-06 13:08 | XMS REPORT ---
[...] Start Date End Date Status Dosage Adderall [facility] [address] 30 MG Orally BID September 19, Active 1 tablet -2016 Results No Known Results Summary Purpose eClinicalWorks Submission
--- OUTSIDE RECORDS SUMMARY | 2018-05-06 13:08 | XMS REPORT ---
[...] Date End Date Status Dosage Adderall [facility] [address] 30 MG Orally BID October 14, Active 1 tablet -2016 Results No Known Results Summary Purpose eClinicalWorks Submission
--- OUTSIDE RECORDS SUMMARY | 2018-05-06 13:08 | XMS REPORT ---
[...] End Date Status Dosage Date Ativan NDC [address]-528 0.5 MG Orally BID Active 1 tablet 08-10 prn Adderall NDC [address]99[address]-461 30 MG Orally BID August 18, Active 1 tablet 01-11 Flexeril NDC 0 10 MG Orally Active 1 tablet every 8 hours as needed for spasm Ferrous Sulfate NDC [address]-488 325 (65 Fe) MG Active 1 tablet 01-10 Orally Once a day Vital Signs Date/Time: August 18, 2016 BMI 29.44 Index Weight 188 lbs Height 67 in Cardiac Monitoring Heart Rate 98 /min Blood Pressure Diastolic 106 mm Hg Blood Pressure Systolic 136 mm Hg Results No Known Results Summary Purpose eClinicalWorks Submission
--- OUTSIDE RECORDS SUMMARY | 2018-05-06 13:08 | XMS REPORT ---
[...] End Date Status Dosage Date Ferrous Sulfate [facility] [address]-34 325 (65 Fe) MG Active 1 tablet 01-10 Orally Once a day Ativan NDC 23901-29 0.5 MG Orally Active 1 tablet 63-01 BID prn Wellbutrin XL NDC 50377-56 150 MG Orally October 27, Active 1 tablet in 30-30 Once a day 2017 the morning Flexeril NDC 0 10 MG Orally Active 1 tablet every 8 hours as needed for spasm Adderall NDC 96624-36 30 MG Orally BID October 14, Active 1 tablet 68-02 2016 [place] [address]-74 25 MG Orally October 27, Active 1 [...]
--- OUTSIDE RECORDS SUMMARY | 2018-05-06 13:08 | XMS REPORT ---
:1990 Author Organization eClinicalWorks Care Team Providers Name Role Andreas Uribe Provider Role Unavailable Encounters Encounter Location Date refill Andreas Benton MD [facility] Aug 05, 2013 Refill Andreas Benton MD [facility] September 04, 2013 Problems Problem Type Condition [...] Start Date End Date Status Dosage Adderall [facility]NOTE 3] [address] 30 mg Orally BID Active 1 tablet [...]
--- OUTSIDE RECORDS SUMMARY | 2018-05-06 13:08 | XMS REPORT ---
:1988 Author Organization eClinicalWorks Care Team Providers Name Role Phone Andreas Benton Provider Role Unavailable Allergies, Adverse Reactions, Alerts Substance Reaction Event Type Tramadol seizures Non Drug Allergy NSAIDs stomach ulcers Non Drug Allergy latex Info Not Available Non Drug Allergy Encounters Encounter Location Date refill Andreas Benton MD [facility] Aug 05, 2013 Problems Problem Type Condition [...] Start Date End Date Status Dosage Bentyl [facility] [address] 20MG Orally BID Active 1 tablet -52 as needed Ativan [facility] [address] 0.5 MG Orally BID Active 1 tablet -60 prn Adderall [facility] [address] 30 mg Orally BID Active 1 tablet [...]
--- OUTSIDE RECORDS SUMMARY | 2018-05-06 13:08 | XMS REPORT ---
[...] Medications Results No Known Results Summary Purpose [employer] Submission
--- OUTSIDE RECORDS SUMMARY | 2018-05-06 13:08 | XMS REPORT ---
[...] 8 hours as needed for spasm Adderall [facility] [address] 30 MG Orally BID October 14, Active 1 tablet 01-11 Ferrous Sulfate [facility] [address] 325 (65 Fe) MG Active 1 tablet 01-10 [place] [address] 0.5 MG Orally BID Active 1 tablet 08-10 prn Results No Known Results Summary Purpose eClinicalWorks Submission
--- OUTSIDE RECORDS SUMMARY | 2018-05-06 13:08 | XMS REPORT ---
[...] Medications Results No Known Results Summary Purpose [employer] Submission
--- OUTSIDE RECORDS SUMMARY | 2018-05-06 13:08 | XMS REPORT ---
[...] Start Date End Date Status Dosage Adderall [facility] [address] 30 MG Orally BID December 21, Active 1 tablet -2016 Ativan [facility] [address] 0.5 MG Orally BID Active 1 tablet - prn Results No Known Results Summary Purpose eClinicalWorks Submission
--- OUTSIDE RECORDS SUMMARY | 2018-05-06 13:08 | XMS REPORT ---
[...] Start End Date Status Dosage Date Adderall [facility] [address]80 30 MG Orally BID December 21, Active 1 [place] [address]-77 0.5 MG Orally Active 1 tablet 63- BID prn Atenolol [facility] [address] 25 MG Orally October 27, Active 1 tablet 87-01 Once a day- hold 2017 for SBP <110 and [place] <60 [place] [address]-90 150 MG Orally October 27, Active 1 tablet in 30-30 Once a day 2017 the morning Ferrous Sulfate [facility] [address]-13 325 (65 Fe) MG Active 1 tablet 08-01 Orally Once a day Results No Known Results Summary Purpose eClinicalWorks Submission
--- OUTSIDE RECORDS SUMMARY | 2018-05-06 13:09 | XMS REPORT ---
:1988 Author Organization eClinicalWorks Care Team Providers Name Role Phone Andreas Benton Provider Role Unavailable Encounters Encounter Location Date LETTER NEEDED Andreas Benton MD [facility] October 09, 2013 Unknown Andreas Benton MD [facility] October 21, 2013 Unknown Andreas Benton MD [facility] November 01, 2013 seizure Andreas Benton MD [facility] December 05, 2013 refill Andreas Benton MD [facility] Aug 05, 2013 Unknown Andreas Benton MD [facility] Feb 07, 2014 Refill Andreas Benton MD [facility] September 04, 2013 [place] Andreas Benton MD [facility] Feb 12, 2014 Refill Andreas Benton MD [facility] October 07, 2013 MEDS Andreas Benton MD [facility] Jan 30, 2014 Unknown Andreas Benton MD [facility] January 07, 2014 Unknown Andreas Benton MD [facility] Feb 04, 2014 Problems Problem Type Condition [...] Date End Date Status Dosage Adderall [facility] [address] 30 mg Orally BID Active 1 tablet -02 Social History Social History Element Qualifiers Date Reported Tobacco Use: . Are you a: former smoker quit 11/24/2013 Jan 30, 2014 Alcohol: . infrequently Jan 30, 2014 Summary Purpose eClinicalWorks Submission
--- OUTSIDE RECORDS SUMMARY | 2018-05-06 13:09 | XMS REPORT ---
:1988 Author Organization eClinicalWorks Care Team Providers Name Role Phone Andreas Benton Provider Role Unavailable Encounters Encounter Location Date LETTER NEEDED Andreas Benton MD [facility] October 09, 2013 Unknown Andreas Benton MD [facility] October 21, 2013 Unknown Andreas Benton MD [facility] November 01, 2013 seizure Andreas Benton MD [facility] December 05, 2013 refill Andreas Benton MD [facility] Aug 05, 2013 Refill Andreas Benton MD [facility] September 04, 2013 Refill Andreas Benton MD [facility] October 07, 2013 NBA Benton MD [facility] Jan 30, 2014 Unknown Andreas Benton MD [facility] September 05, 2014 add Andreas Benton MD [facility] Jul 14, 2014 Unknown Andreas Benton MD [facility] January 07, 2014 Unknown Andreas Benton MD [facility] Feb 04, 2014 Refill Andreas Benton MD [facility] May 15, 2014 Unknown Andreas Benton MD [facility] Jun 11, 2014 Unknown Andreas Benton MD [facility] Apr 08, 2014 Unknown Andreas Benton MD [facility] May 13, 2014 RIA Benton MD [facility] November 17, 2014 Unknown Andreas Benton MD [facility] Mar 06, 2014 Refill Andreas Benton MD [facility] December 16, 2014 nba Benton MD [facility] Mar 17, 2014 Unknown Andreas Benton MD [facility] Feb 07, 2014 [place] Andreas Benton MD [facility] Feb 12, 2014 Refill Andreas Benton MD [facility] Aug 01, 2014 Problems Problem Type Condition [...] Start Date End Date Status Dosage Adderall [facility] [address] 30 mg Orally BID Active 1 tablet -02 Social History Social History Element Qualifiers Date Reported Tobacco Use: . Are you a: former smoker quit 11/24/2013 November 17, 2014 Alcohol: . infrequently November 17, 2014 Summary Purpose eClinicalWorks Submission
--- OUTSIDE RECORDS SUMMARY | 2018-05-06 13:09 | XMS REPORT ---
:1988 Author Organization eClinicalWorks Care Team Providers Name Role Andreas Uribe Provider Role Unavailable Encounters Encounter Location Date LETTER NEEDED Andreas Benton MD [facility] October 09, 2013 Unknown Andreas Benton MD [facility] October 21, 2013 Unknown Andreas Benton MD [facility] November 01, 2013 refill Andreas Benton MD [facility] Aug 05, 2013 Refill Andreas Benton MD [facility] September 04, 2013 Refill Andreas Benton MD [facility] October 07, 2013 Problems Problem Type Condition [...] Date End Date Status Dosage Adderall [facility] [address] 30 mg Orally BID Active 1 tablet -02 Social History Social History Element Qualifiers Date Reported Tobacco Use: . Are you a: current smoker, How many packs per October 21, 2013 day? 1 Alcohol: . infrequently October 21, 2013 Summary Purpose eClinicalWorks Submission
--- OUTSIDE RECORDS SUMMARY | 2018-05-06 13:09 | XMS REPORT ---
:1988 Author Organization eClinicalWorks Care Team Providers Name Role Phone Andreas Benton Provider Role Unavailable Encounters Encounter Location Date LETTER NEEDED Andreas Benton MD [facility] October 09, 2013 Unknown Andreas Benton MD [facility] October 21, 2013 Unknown Andreas Benton MD [facility] November 01, 2013 seizure Andreas Benton MD [facility] December 05, 2013 refill Andreas Benton MD [facility] Aug 05, 2013 Unknown Andreas Benton MD [facility] Feb 07, 2014 Refill Andreas Benton MD [facility] September 04, 2013 [place] Andreas Benton MD [facility] Feb 12, 2014 Refill Andreas Benton MD [facility] October 07, 2013 MEDS Andreas Benton MD [facility] Jan 30, 2014 Unknown Andreas Benton MD [facility] January 07, 2014 Unknown Andreas Benton MD [facility] Feb 04, 2014 Problems Problem Type [...] Date End Date Status Dosage Ativan [facility] [address] 0.5 MG Orally BID Active 1 tablet -60 prn Adderall [facility] [address] 30 mg Orally BID Active 1 tablet -02 Social History Social History Element Qualifiers Date Reported Tobacco Use: . Are you a: former smoker quit 11/24/2013 Jan 30, 2014 Alcohol: . infrequently Jan 30, 2014 Summary Purpose eClinicalWorks Submission
--- OUTSIDE RECORDS SUMMARY | 2018-05-06 13:09 | XMS REPORT ---
:1988 Author Organization eClinicalWorks Care Team Providers Name Role Andreas Uribe Provider Role Unavailable Encounters Encounter Location Date refill Andreas Benton MD [facility] Aug 05, 2013 Refill Andreas Benton MD [facility] September 04, 2013 Refill Andreas Benton MD [facility] October 07, 2013 Problems Problem Type [...] Start Date End Date Status Dosage Adderall [facility] [address] 30 mg Orally BID Active 1 tablet -02 Social History Social History Element Qualifiers Date Reported Tobacco Use: . Are you a: current smoker, How many packs per Aug 05, 2013 day? 1 Alcohol: . infrequently Aug 05, 2013 Summary Purpose eClinicalWorks Submission
--- OUTSIDE RECORDS SUMMARY | 2018-05-06 13:09 | XMS REPORT ---
:1988 Author Organization eClinicalWorks Care Team Providers Name Role Phone Andreas Benton Provider Role Unavailable Allergies, Adverse Reactions, Alerts Substance Reaction Event Type Tramadol seizures Drug Allergy NSAIDs stomach ulcers Non Drug Allergy latex Info Not Available Non Drug Allergy Encounters Encounter Location Date LETTER NEEDED Andreas Benton MD [facility] October 09, 2013 Unknown Andreas Benton MD [facility] October 21, 2013 refill Andreas Benton MD [facility] Aug 05, 2013 Refill Andreas Benton MD [facility] September 04, 2013 Refill Andreas Bneton MD [facility] October 07, 2013 Problems Problem Type Condition [...] Date End Date Status Dosage Bentyl MEDISPAN [id number] 20MG Orally BID Active 1 tablet -52 as needed Ativan MEDISPAN [address] 0.5 MG Orally BID Active 1 tablet -60 prn Adderall MEDISPAN [id number] 30 mg Orally BID Active 1 tablet [...]
--- OUTSIDE RECORDS SUMMARY | 2018-05-06 13:09 | XMS REPORT ---
:1990 Author Organization eClinicalWorks Care Team Providers Name Role Andreas Uribe Provider Role Unavailable Encounters Encounter Location Date LETTER NEEDED Andreas Benton MD [facility] October 09, 2013 refill Andreas Benton MD [facility] Aug 05, 2013 Refill Andreas Benton MD [facility] September 04, 2013 Refill Andreas Benton MD [facility] October 07, 2013 Problems Problem Type [...] Date End Date Status Dosage Ativan MEDISPAN [address] 0.5 MG Orally BID Active 1 tablet -60 prn Bentyl MEDISPAN [address] 20MG Orally BID Active 1 tablet -52 as needed Adderall MEDISPAN [address] 30 mg Orally BID Active 1 tablet -02 Social History Social History Element Qualifiers Date Reported Tobacco Use: . Are you a: current smoker, How many packs per Aug 05, 2013 day? 1 Alcohol: . infrequently Aug 05, 2013 Summary Purpose eClinicalWorks Submission
--- OUTSIDE RECORDS SUMMARY | 2018-05-06 13:09 | XMS REPORT ---
:1990 Author Organization eClinicalWorks Care Team Providers Name Role Phone Andreas Benton Provider Role Unavailable Encounters Encounter Location Date LETTER NEEDED Andreas Benton MD [facility] October 09, 2013 Unknown Andreas Benton MD [facility] October 21, 2013 Unknown Andreas Benton MD [facility] November 01, 2013 seizure Andreas Benton MD [facility] December 05, 2013 refill Andreas Benton MD [facility] Aug 05, 2013 Unknown Andreas Benton MD [facility] Feb 07, 2014 Refill Andreas Benton MD [facility] September 04, 2013 DRY SOCKET Andreas Benton MD [facility] Feb 12, 2014 Refill Andreas Benton MD [facility] October 07, 2013 MEDS Andreas Benton MD [facility] Jan 30, 2014 Unknown Andreas Benton MD [facility] January 07, 2014 Unknown Andreas Benton MD [facility] Feb 04, 2014 Problems Problem Type [...] Date End Date Status Dosage Ativan MEDISPAN 90858-029 0.5 MG Orally BID Active 1 tablet 7-60 prn Adderall [facility] 97495-557 30 mg Orally BID Active 1 tablet 8-02 [place] [facility] 68091-702 10-325 MG Orally Active 1 tablet 0-73 BID as needed Bentyl [facility] 72842-841 20MG Orally BID Active 1 tablet 0-52 [...]
--- OUTSIDE RECORDS SUMMARY | 2018-05-06 13:09 | XMS REPORT ---
:1990 Author Organization eClinicalWorks Care Team Providers Name Role Phone Andreas Benton Provider Role Unavailable Allergies, Adverse Reactions, Alerts Substance Reaction Event Type Tramadol seizures Drug Allergy NSAIDs stomach ulcers Non Drug Allergy latex Info Not Available Non Drug Allergy Encounters Encounter Location Date LETTER NEEDED Andreas Benton MD [facility] October 09, 2013 Unknown Andreas Benton MD [facility] October 21, 2013 Unknown Andreas Benton MD [facility] November 01, 2013 seizure Andreas Benton MD [facility] December 05, 2013 refill Andreas Benton MD [facility] Aug 05, 2013 Unknown Andreas Benton MD [facility] Feb 07, 2014 Refill Andreas Benton MD [facility] September 04, 2013 DRY SOCKET Andreas Benton MD [facility] Feb 12, 2014 Refill Andreas Benton MD [facility] October 07, 2013 MEDS Andreas Benton MD [facility] Jan 30, 2014 Unknown Andreas Benton MD [facility] January 07, 2014 Unknown Andreas Benton MD [facility] Feb 04, 2014 Problems Problem [...] Date End Date Status Dosage Bentyl MEDISPAN 38538-760 20MG Orally BID Active 1 tablet 0-52 as needed [place] MEDISPAN 55588-069 10-325 MG Orally Active 1 tablet 0-73 BID as needed Adderall MEDISPAN 94327-497 30 mg Orally BID Active 1 tablet 8-02 [facility] 50767-559 0.5 MG Orally BID Active 1 tablet [...]
--- OUTSIDE RECORDS SUMMARY | 2018-05-06 13:09 | XMS REPORT ---
:1990 Author Organization eClinicalWorks Care Team Providers Name Role Phone Andreas Benton Provider Role Unavailable Encounters Encounter Location Date LETTER NEEDED [facility] October 07, 2013 MEDSadaf Benton MD [facility] Jan 30, 2014 Unknown Andreas Benton MD [facility] January 07, 2014 Unknown Andreas Benton MD [facility] Feb 04, 2014 Unknown Andreas Benton MD [facility] Mar 06, 2014 medsadaf Benton MD [facility] Mar 17, 2014 Unknown Andreas Benton MD [facility] Feb 07, 2014 DRY SOCKET Andreas Benton MD [facility] Feb 12, 2014 Problems Problem Type Condition [...] Date End Date Status Dosage Adderall MEDISPAN [address] 30 mg Orally BID Active 1 tablet -02 Social History Social History Element Qualifiers Date Reported Tobacco Use: . Are you a: former smoker quit 11/24/2013 Mar 17, 2014 Alcohol: . infrequently Mar 17, 2014 Family history Qualifier Description Comment Date Reported Other: hypertension Mar 17, 2014 Summary Purpose eClinicalWorks Submission
--- OUTSIDE RECORDS SUMMARY | 2018-05-06 13:09 | XMS REPORT ---
:1990 Author Organization eClinicalWorks Care Team Providers Name Role Phone Andreas Benton Provider Role Unavailable Allergies, Adverse Reactions, Alerts Substance Reaction Event Type Tramadol seizures Drug Allergy NSAIDs stomach ulcers Non Drug Allergy latex Info Not Available Non Drug Allergy Encounters Encounter Location Date LETTER NEEDED Andreas Benton MD [facility] October 09, 2013 Unknown Andreas Benton MD [facility] October 21, 2013 Unknown Andreas Benton MD [facility] November 01, 2013 seizure Andreas Benton MD [facility] December 05, 2013 refill Andreas Benton MD [facility] Aug 05, 2013 Refill Andreas Benton MD [facility] September 04, 2013 Refill Andreas Benton MD [facility] October 07, 2013 Unknown [address] B[address] [facility] January 07, 2014 Problems Problem Type Condition [...] Date End Date Status Dosage Adderall MEDISPAN 38352-967 30 mg Orally BID Active 1 tablet 8-02 Ativan MEDISPAN 36273-864 0.5 MG Orally BID Active 1 tablet 7-60 prn Bentyl [facility] 71960-682 20MG Orally BID Active 1 tablet 0-52 as needed Romulus [facility] 80281-199 10-325 MG Orally Active 1 tablet 0-73 [...]
--- OUTSIDE RECORDS SUMMARY | 2018-05-06 13:09 | XMS REPORT ---
:1990 Author Organization eClinicalWorks Care Team Providers Name Role Phone Andreas Benton Provider Role Unavailable Encounters Encounter Location Date LETTER NEEDED Andreas Benton MD [facility] October 09, 2013 Unknown Andreas Benton MD [facility] October 21, 2013 Unknown Andreas Benton MD [facility] November 01, 2013 seizure Andreas Benton MD [facility] December 05, 2013 refill Andreas Benton MD [facility] Aug 05, 2013 Unknown Andreas Benton MD [facility] Feb 07, 2014 Refill Andreas Benton MD [facility] September 04, 2013 DRY SOCKET Andreas Benton MD [facility] Feb 12, 2014 Refill Andreas Benton MD [facility] October 07, 2013 MEDS Andreas Benton MD [facility] Jan 30, 2014 Unknown Andreas Benton MD [facility] January 07, 2014 Unknown Andreas Benton MD [facility] Feb 04, 2014 Problems Problem Type [...] Start Date End Date Status Dosage Ativan [facility] [address] 0.5 MG Orally BID Active 1 tablet -60 prn Social History Social History Element Qualifiers Date Reported Tobacco Use: . Are you a: former smoker quit 11/24/2013 Jan 30, 2014 Alcohol: . infrequently Jan 30, 2014 Summary Purpose eClinicalWorks Submission
--- OUTSIDE RECORDS SUMMARY | 2018-05-06 13:10 | XMS REPORT ---
:1990 [facility] Team Providers Name Role Andreas Uribe Provider Role Unavailable Encounters Encounter Location Date MEDJack Benton MD [facility] Jan 30, 2014 Refill Andreas Benton MD [facility] May 15, 2014 Unknown Andreas Benton MD [facility] Jun 11, 2014 Unknown Andreas Benton MD [facility] Apr 08, 2014 Unknown Andreas Benton MD [facility] May 13, 2014 Unknown Andreas Benton MD [facility] Mar 06, 2014 nba Benton MD [facility] Mar 17, 2014 Unknown Andreas Benton MD [facility] Feb 07, 2014 DRY SOCKET Andreas Benton MD [facility] Feb 12, 2014 Refill Andreas Benton MD [facility] Aug 01, 2014 LETTER NEEDED Andreas Benton MD [facility] October 09, 2013 Unknown Andreas Benton MD [facility] October 21, 2013 Unknown Andreas Benton MD [facility] November 01, 2013 seizure Andreas Benton MD [facility] December 05, 2013 refill Andreas Benton MD [facility] Aug 05, 2013 Refill Andreas Benton MD [facility] September 04, 2013 Refill Andreas Benton MD [facility] October 07, 2013 Unknown Andreas Benton MD [facility] September 05, 2014 add Andreas Benton MD [facility] Jul 14, 2014 Unknown Andreas Benton MD [facility] January 07, 2014 Unknown Andreas Benton MD [facility] Feb 04, 2014 Refill Andreas Benton MD [facility] Feb 20, 2015 ADD Andreas Benton MD [facility] November 17, 2014 Refill Andreas Benton MD [facility] December 16, 2014 Refill Andreas Benton MD [facility] Jan 19, 2015 BACK PAIN Andreas Benton MD [facility] Jan 29, 2015 Problems Problem Type Condition [...] Date End Date Status Dosage Adderall MEDISPAN [address] 30 mg Orally BID Active 1 tablet -02 Ativan MEDISPAN [address] 0.5 MG Orally BID Active 1 tablet -01 prn Social History Social History Element Qualifiers Date Reported Tobacco Use: . Are you a: former smoker quit 11/24/2013 Jan 29, 2015 Alcohol: . infrequently Jan 29, 2015 Summary Purpose eClinicalWorks Submission
--- OUTSIDE RECORDS SUMMARY | 2018-05-06 13:10 | XMS REPORT ---
:1990 Author Organization eClinicalWorks Care Team Providers Name Role Phone Andreas Benton Provider Role Unavailable Allergies, Adverse Reactions, Alerts Substance Reaction Event Type Tramadol seizures Drug Allergy NSAIDs stomach ulcers Non Drug Allergy latex Info Not Available Non Drug Allergy Encounters Encounter Location Date LETTER NEEDED Andreas Benton MD [facility] October 09, 2013 Unknown Andreas Benton MD [facility] October 21, 2013 Unknown Andreas Benton MD [facility] November 01, 2013 seizure Andreas Benton MD [facility] December 05, 2013 refill Andreas Benton MD [facility] Aug 05, 2013 Refill Andreas Benton MD [facility] September 04, 2013 Refill Andreas Benton MD [facility] October 07, 2013 MEDS Andreas Benton MD [facility] Jan 30, 2014 Unknown Andreas Benton MD [facility] January 07, 2014 Unknown Andreas Benton MD [facility] Feb 04, 2014 Unknown Andreas Benton MD [facility] Mar 06, 2014 medsadaf Benton MD [facility] Mar 17, 2014 Unknown Andreas Benton MD [facility] Feb 07, 2014 DRY SOCKET Andreas Benton MD [facility] Feb 12, 2014 Problems Problem [...] End Date Status Dosage Date Viibryd MEDISPAN 73618-280 10 & 20 & 40 MG Mar 17, Active as directed 0-31 Orally 2013 Ativan MEDISPAN 21740-312 0.5 MG Orally Active 1 tablet 3-01 BID-TID prn Adderall MEDISPAN 65147-735 30 mg Orally BID Active 1 tablet 8-02 [place] MEDISPAN 17187-436 10-325 MG Orally Active 1 tablet as 0-73 BID needed Bentyl MEDISPAN 95433-316 20MG Orally BID Active 1 tablet 0-52 [...]
--- OUTSIDE RECORDS SUMMARY | 2018-05-06 13:10 | XMS REPORT ---
:1990 Author Organization eClinicalWorks Care Team Providers Name Role Phone Andreas Benton Provider Role Unavailable Allergies, Adverse Reactions, Alerts Substance Reaction Event Type Tramadol seizures Drug Allergy NSAIDs stomach ulcers Non Drug Allergy latex Info Not Available Non Drug Allergy Encounters Encounter Location Date MEDS Andreas Benton MD [facility] Jan 30, 2014 Refill Andreas Benton MD [facility] May 15, 2014 Unknown Andreas Benton MD [facility] Jun 11, 2014 Unknown Andreas Benton MD [facility] Apr 08, 2014 Unknown Andreas Benton MD [facility] May 13, 2014 Unknown Andreas Benton MD [facility] Mar 06, 2014 meds Andreas Benton MD [facility] Mar 17, 2014 Unknown Andreas Benton MD [facility] Feb 07, 2014 DRY SOCKET Andreas Benton MD [facility] Feb 12, 2014 Refill Andreas Benton MD [facility] Aug 01, 2014 LETTER NEEDED Andreas Benton MD [facility] October 09, 2013 Unknown Andreas Benton MD [facility] October 21, 2013 Unknown Andreas Benton MD [facility] November 01, 2013 seizure Andreas Benton MD [facility] December 05, 2013 refill Andreas Benton MD [facility] Aug 05, 2013 Refill Andreas Benton MD [facility] September 04, 2013 Refill Andreas Benton MD [facility] October 07, 2013 Unknown Andreas Benton MD [facility] September 05, 2014 add Andreas Benton MD [facility] Jul 14, 2014 Unknown Andreas Benton MD [facility] January 07, 2014 Unknown Andreas Benton MD [facility] Feb 04, 2014 Refill Andreas Benton MD [facility] Feb 20, 2015 [email or web address] Benton MD [facility] Mar 19, 2015 MEDS. Andreas Benton MD [facility] Apr 23, 2015 ADD Andreas Benton MD [facility] November 17, 2014 Refill Andreas Benton MD [facility] December 16, 2014 Refill Andreas Benton MD [facility] Jan 19, 2015 BACK PAIN Andreas Benton MD [facility] Jan 29, 2015 Problems Problem Type Condition [...] End Date Status Dosage Date Ativan MEDISPAN 65296-954 0.5 MG Orally Active 1 tablet 3-01 BID prn Ferrous Sulfate MEDISPAN 88791-792 325 (65 Fe) MG Active 1 tablet 8-01 Orally Once a day Adderall MEDISPAN 65677-140 30 mg Orally BID Active 1 tablet [...]
--- OUTSIDE RECORDS SUMMARY | 2018-05-06 13:10 | XMS REPORT ---
:1990 Author Organization eClinicalWorks Care Team Providers Name Role Phone Andreas Benton Provider Role Unavailable Allergies, Adverse Reactions, Alerts Substance Reaction Event Type Tramadol seizures Drug Allergy NSAIDs stomach ulcers Non Drug Allergy latex Info Not Available Non Drug Allergy Encounters Encounter Location Date MEDS Andreas Benton MD [facility] Jan 30, 2014 Refill Andreas Benton MD [facility] May 15, 2014 Unknown Andreas Benton MD [facility] Jun 11, 2014 Unknown Andreas Benton MD [facility] Apr 08, 2014 Unknown Andreas Benton MD [facility] May 13, 2014 Unknown Andreas Benton MD [facility] Mar 06, 2014 meds Andreas Benton MD [facility] Mar 17, 2014 Unknown Andreas Benton MD [facility] Feb 07, 2014 DRY SOCKET Andreas Benton MD [facility] Feb 12, 2014 Refill Andreas Benton MD [facility] Aug 01, 2014 LETTER NEEDED Andreas Benton MD [facility] October 09, 2013 Unknown Andreas Benton MD [facility] October 21, 2013 Unknown Andreas Benton MD [facility] November 01, 2013 seizure Andreas Benton MD [facility] December 05, 2013 refill Andreas Benton MD [facility] Aug 05, 2013 Refill Andreas Benton MD [facility] September 04, 2013 Refill Andreas Benton MD [facility] October 07, 2013 Unknown Andreas Benton MD [facility] September 05, 2014 add Andreas Benton MD [facility] Jul 14, 2014 Unknown Andreas Benton MD [facility] January 07, 2014 Unknown Andreas Benton MD [facility] Feb 04, 2014 ADD Andreas Benton MD [facility] November 17, 2014 Refill Andreas Benton MD [facility] December 16, 2014 Refill Andreas Benton MD [facility] Jan 19, 2015 BACK PAIN Andreas Benton MD [facility] Jan 29, 2015 Problems Problem Type [...] End Date Status Dosage Date Adderall MEDISPAN 63258-99 30 mg Orally BID Active 1 tablet 68-02 Ferrous Sulfate MEDISPAN 90952-94 325 (65 Fe) MG Active 1 tablet 08-01 Orally Once a day Robaxin MEDISPAN 04537-84 500 mg Orally Jan 29, Active 1 tablet 29-63 TID prn spasm 2014 Acetaminophen-C MEDISPAN 06781-62 300-30 MG Orally Jan 29, Active 1 tablet odeine #3 50-01 every 6-8 hours 2014 as needed as needed for severe pain Ativan MEDISPAN 67045-85 0.5 MG Orally Active 1 tablet 63-01 BID prn Bentyl MEDISPAN 18727-02 20MG Orally BID Active 1 tablet 80-52 [...]
--- OUTSIDE RECORDS SUMMARY | 2018-05-06 13:10 | XMS REPORT ---
:1990 Author Organization eClinicalWorks Care Team Providers Name Role Phone Andreas Benton Provider Role Unavailable Encounters Encounter Location Date LETTER NEEDED Andreas Benton MD [facility] October 09, 2013 Unknown Andreas Benton MD [facility] October 21, 2013 Unknown Andreas Benton MD [facility] November 01, 2013 seizure Andreas Benton MD [facility] December 05, 2013 refill Andreas Benton MD [facility] Aug 05, 2013 Refill Andreas Benton MD [facility] September 04, 2013 Refill Andreas Benton MD [facility] October 07, 2013 KATARZYNA Benton MD [facility] Jan 30, 2014 Unknown Andreas Benton MD [facility] January 07, 2014 Unknown Andreas Benton MD [facility] Feb 04, 2014 Refill Andreas Benton MD [facility] May 15, 2014 Unknown Andreas Benton MD [facility] Apr 08, 2014 Unknown Andreas Benton MD [facility] May 13, 2014 Unknown Andreas Benton MD [facility] Mar 06, 2014 [email or web address] Benton MD [facility] Mar 17, 2014 Unknown Andreas Benton MD [facility] Feb 07, 2014 DRY SOCKET Andreas Benton MD [facility] Feb 12, 2014 Problems Problem [...]
--- OUTSIDE RECORDS SUMMARY | 2018-05-06 13:10 | XMS REPORT ---
[...] Benton MD [facility] October 07, 2013 KATARZYNA Benton MD [facility] Jan 30, 2014 Unknown Andreas Benton MD [facility] January 07, 2014 Unknown Andreas Benton MD [facility] Feb 04, 2014 Refill Andreas Benton MD [facility] May 15, 2014 Unknown Andreas Benton MD [facility] Jun 11, 2014 Unknown Andreas Benton MD [facility] [...]
--- OUTSIDE RECORDS SUMMARY | 2018-05-06 13:10 | XMS REPORT ---
[...] Benton MD [facility] October 07, 2013 MEDSadaf [...] Start Date End Date Status Dosage Adderall [facility] [address] 30 mg Orally BID Active 1 tablet -02 Social History Social History Element Qualifiers Date Reported Tobacco Use: . Are you a: former smoker quit 11/24/2013 Mar 17, 2014 Alcohol: . infrequently Mar 17, 2014 Summary Purpose eClinicalWorks Submission
--- OUTSIDE RECORDS SUMMARY | 2018-05-06 13:10 | XMS REPORT ---
:1990 Author Organization eClinicalWorks Care Team Providers Name Role Phone Andreas Benton Provider Role Unavailable Encounters Encounter Location Date LETTER NEEDED Andreas Benton MD [facility] October 09, 2013 Unknown Andreas Benton MD [facility] October 21, 2013 Unknown Andreas Benton MD [facility] November 01, 2013 seizure Andreas Benton MD [facility] December 05, 2013 refill Andreas Benton MD [facility] Aug 05, 2013 Refill Andreas Benton MD [facility] September 04, 2013 Refill Andreas Benton MD [facility] October 07, 2013 MEDSadaf Benton MD [facility] Jan 30, 2014 add Andreas Benton MD [facility] Jul 14, 2014 Unknown Andreas Benton MD [facility] January 07, 2014 Unknown Andreas Benton MD [facility] Feb 04, 2014 Refill Andreas Benton MD [facility] May 15, 2014 Unknown Andreas Benton MD [facility] Jun 11, 2014 Unknown Andreas Benton MD [facility] Apr 08, 2014 Unknown Andreas Benton MD [facility] May 13, 2014 Unknown Andreas Benton MD [facility] Mar 06, 2014 medsadaf Benton MD [facility] Mar 17, 2014 Unknown Andreas Benton MD [facility] Feb 07, 2014 DRY SOCKET Andreas Benton MD [facility] Feb 12, 2014 Refill Andreas Benton MD [facility] Aug 01, 2014 Problems Problem Type [...]
--- OUTSIDE RECORDS SUMMARY | 2018-05-06 13:10 | XMS REPORT ---
:1990 Author Organization eClinicalWorks Care Team Providers Name Role Phone Andreas Benton Provider Role Unavailable Encounters Encounter Location Date LETTER NEEDED [facility] October 07, 2013 MEDSadaf Benton MD [facility] Jan 30, 2014 Unknown Andreas Benton MD [facility] January 07, 2014 Unknown Andreas Benton MD [facility] Feb 04, 2014 Unknown Andreas Benton MD [facility] Apr 08, 2014 Unknown Andreas Benton MD [facility] Mar 06, 2014 medsadaf Benton MD [facility] Mar 17, 2014 Unknown Andreas Benton MD [facility] Feb 07, 2014 DRY SOCKET Andreas Benton MD [facility] Feb 12, 2014 Problems Problem [...] Start Date End Date Status [facility]os[facility] [address] 30 mg Orally BID Active 1 tablet -02 Social History Social History Element Qualifiers Date Reported Tobacco Use: . Are you a: former smoker quit 11/24/2013 Mar 17, 2014 Alcohol: . infrequently Mar 17, 2014 Summary Purpose eClinicalWorks Submission
--- OUTSIDE RECORDS SUMMARY | 2018-05-06 13:10 | XMS REPORT ---
:1990 [facility] Team Providers Name Role Andreas Uribe Provider Role Unavailable Encounters Encounter Location Date NBA Benton MD [facility] Jan 30, 2014 Refill Andreas Benton MD [facility] May 28, 2015 Refill Andreas Benton MD [facility] May 15, 2014 Unknown Andreas Benton MD [facility] Jun 11, 2014 Unknown Andreas Benton MD [facility] Apr 08, 2014 Unknown Andreas Benton MD [facility] May 13, 2014 Unknown Andreas Benton MD [facility] Mar 06, 2014 nba Benton MD [facility] Mar 17, 2014 Unknown Andreas Benton MD [facility] Feb 07, 2014 DRY SOCKET Andreas Benton MD [facility] Feb 12, 2014 Refill Andreas Benton MD [facility] Aug 01, 2014 LETTER NEEDED Andreas Benton MD [facility] October 09, 2013 Unknown Andreas Benton MD [facility] October 21, 2013 Unknown Andreas Benton MD [facility] November 01, 2013 seizure Andreas Benton MD [facility] December 05, 2013 refill Andreas Benton MD [facility] Aug 05, 2013 Refill Andreas Benton MD [facility] September 04, 2013 Refill Andreas Benton MD [facility] October 07, 2013 Unknown Andreas Benton MD [facility] September 05, 2014 add Andreas Benton MD [facility] Jul 14, 2014 Unknown Andreas Benton MD [facility] January 07, 2014 Unknown Andreas Benton MD [facility] Feb 04, 2014 Refill Andreas Benton MD [facility] Feb 20, 2015 [email or web address] Benton MD [facility] Mar 19, 2015 MEDS. Andreas Benton MD [facility] Apr 23, 2015 Refill Andreas Benton MD [facility] May 22, 2015 ADD Andreas Benton MD [facility] November 17, 2014 Refill Andreas Benton MD [facility] December 16, 2014 Refill Andreas Benton MD [facility] Jan 19, 2015 BACK PAIN Andreas Benton MD [facility] Jan 29, 2015 Problems Problem Type Condition [...] Date End Date Status Dosage Ativan MEDISPAN [address] 0.5 MG Orally BID Active 1 tablet -01 prn Social History Social History Element Qualifiers Date Reported Tobacco Use: . Are you a: former smoker quit 11/24/2013 Apr 23, 2015 Alcohol: . infrequently Apr 23, 2015 Summary Purpose eClinicalWorks Submission
--- OUTSIDE RECORDS SUMMARY | 2018-05-06 13:10 | XMS REPORT ---
:1990 [facility] Providers Name Role Andreas Uribe Provider Role Unavailable Encounters Encounter Location Date NBA Benton MD [facility] Jan 30, 2014 Refill Andreas Benton MD [facility] May 15, 2014 Unknown Andreas Benton MD [facility] Jun 11, 2014 Unknown Andreas Benton MD [facility] Apr 08, 2014 Unknown Andreas Benton MD [facility] May 13, 2014 Unknown Andreas Benton MD [facility] Mar 06, 2014 nba Benton MD [facility] Mar 17, 2014 Unknown Andreas Benton MD [facility] Feb 07, 2014 DRY SOCKET Andreas Benton MD [facility] Feb 12, 2014 Refill Andreas Benton MD [facility] Aug 01, 2014 LETTER NEEDED Andreas Benton MD [facility] October 09, 2013 Unknown Andreas Benton MD [facility] October 21, 2013 Unknown Andreas Benton MD [facility] November 01, 2013 seizure Andreas Benton MD [facility] December 05, 2013 refill Andreas Benton MD [facility] Aug 05, 2013 Refill Andreas Benton MD [facility] September 04, 2013 Refill Andreas Benton MD [facility] October 07, 2013 Unknown Andreas Benton MD [facility] September 05, 2014 add Andreas Benton MD [facility] Jul 14, 2014 Unknown Andreas Benton MD [facility] January 07, 2014 Unknown Andreas Benton MD [facility] Feb 04, 2014 Refill Andreas Benton MD [facility] Feb 20, 2015 [email or web address] Benton MD [facility] Mar 19, 2015 ANDRESS. Andreas Benton MD [facility] Apr 23, 2015 Refill Andreas Benton MD [facility] May 22, 2015 LARRY Benton MD [facility] November 17, 2014 Refill Andreas Benton MD [facility] December 16, 2014 Refill Andreas Benton MD [facility] Jan 19, 2015 BACK PAIN Andreas Benton MD [facility] Jan 29, 2015 Problems Problem [...] Start Date End Date Status Dosage Adderall [place] [address] 30 mg Orally BID Active 1 tablet -02 Social History Social History Element Qualifiers Date Reported Tobacco Use: . Are you a: former smoker quit 11/24/2013 Apr 23, 2015 Alcohol: . infrequently Apr 23, 2015 Summary Purpose eClinicalWorks Submission
--- OUTSIDE RECORDS SUMMARY | 2018-05-06 13:11 | XMS REPORT ---
:1990 Author Organization eClinicalWorks Care Team Providers Name Role Phone Andreas Benton Provider Role Unavailable Allergies, Adverse Reactions, Alerts Substance Reaction Event Type Tramadol seizures Drug Allergy NSAIDs stomach ulcers Non Drug Allergy latex Info Not Available Non Drug Allergy Encounters Encounter Location Date NBA Benton MD [facility] Jan 30, [address] [facility] Aug 05, 2015 Refill [address] B[address] [facility] Jun 19, 2015 Ref[address] [facility] May 28, 2015 STICHES REMOVAL Andreas Benton MD [facility] October 02, 2015 Refill [address] [facility] May 15, 2014 JOCELYN/ MEDS Andreas Benton MD [facility] October 30, 2015 Unknown [address] [facility] Jun 11, 2014 Refill [address] B[address] [facility] August 12, 2015 Unknown [address] [facility] Apr 08, 2014 BLOOD LOW/ PASSING OUT Andreas Benton MD [facility] September 16, 2015 Unknown [address] [facility] May 13, 2014 Unknown [address] [facility] Mar 06, [address] [facility] Mar 17, 2014 Unknown [address] B[address] [facility] November 17, 2015 Unknown [address] [facility] Feb 07, 2014 F/U MEDS Andreas Benton MD [facility] Feb 08, 2016 DRY SOCKET Andreas Benton MD [facility] Feb 12, 2014 Refill [address] Benton [address] [facility] Aug 01, 2014 LETTER NEEDED Andreas Benton MD [facility] October 09, 2013 Unknown [address] [facility] October 21, 2013 Unknown [address] [facility] November 01, 2013 seizure [address] [facility] December 05, 2013 refill [address] B[address] [facility] Aug 05, 2013 Refill [address] B[address] [facility] September 04, 2013 Ref[address] [facility] October 07, 2013 Unknown [address] [facility] September 05, [address] [facility] Jul 14, 2014 Unknown [address] B[address] [facility] January 07, 2014 Unknown [address] [facility] Feb 04, 2014 Refill [address] B[address] [facility] Feb 20, 2015 adderall [address] B[address] MD [facility] Mar 19, 2015 MEDS. [address] Benton MD [facility] Apr 23, 2015 Refill [address] B[address] [facility] May 22, [address] [facility] November 17, 2014 Refill [address] B[address] [facility] December 16, 2014 [address] [facility] Jan 19, 2015 BACK PAIN Andreas Benton MD [facility] Jan 29, 2015 Problems Problem Type [...] Date Status Dosage Date Ferrous Sulfate MEDISPAN 91135-341 325 (65 Fe) MG Active 1 tablet 8-01 Orally Once a day Ativan MEDISPAN 39250-707 0.5 MG Orally Active 1 tablet 3-01 BID prn Adderall MEDISPAN 50648-150 30 mg Orally BID Active 1 tablet [...]
--- OUTSIDE RECORDS SUMMARY | 2018-05-06 13:11 | XMS REPORT ---
:1990 Author Organization eClinicalWorks Care Team Providers Name Role Phone Andreas Benton Provider Role Unavailable Allergies, Adverse Reactions, Alerts Substance Reaction Event Type Tramadol seizures Drug Allergy NSAIDs stomach ulcers Non Drug Allergy latex Info Not Available Non Drug Allergy Encounters Encounter Location Date KATARZYNA Benton MD [facility] Jan 30, 2014 KATARZYNA Benton MD [facility] Aug 05, 2015 Refill Andreas Benton MD [facility] Jun 19, 2015 Refill Andreas Benton MD [facility] May 28, 2015 STICHES REMOVAL Andreas Benton MD [facility] October 02, 2015 Refill Andreas Benton MD [facility] May 15, 2014 JOCELYN/ MEDS Andreas Benton MD [facility] October 30, 2015 Unknown Andreas Benton MD [facility] Jun 11, 2014 Refill Andreas Benton MD [facility] August 12, 2015 Unknown Andreas Benton MD [facility] Apr 08, 2014 BLOOD LOW/ PASSING OUT Andreas Benton MD [facility] September 16, 2015 Unknown Andreas Benton MD [facility] May 13, 2014 Unknown Andreas Benton MD [facility] Mar 06, 2014 meds Andreas Benton MD [facility] Mar 17, 2014 Unknown Andreas Benton MD [facility] Feb 07, 2014 DRY SOCKET Andreas Benton MD [facility] Feb 12, 2014 Refill Andreas Benton MD [facility] Aug 01, 2014 LETTER NEEDED Andreas Benton MD [facility] October 09, 2013 Unknown Andreas Benton MD [facility] October 21, 2013 Unknown Andreas Benton MD [facility] November 01, 2013 seizure Andreas Benton MD [facility] December 05, 2013 refill Andreas Benton MD [facility] Aug 05, 2013 Refill Andreas Benton MD [facility] September 04, 2013 Refill Andreas Benton MD [facility] October 07, 2013 Unknown Andreas Benton MD [facility] September 05, 2014 larry Benton MD [facility] Jul 14, 2014 Unknown Andreas Benton MD [facility] January 07, 2014 Unknown Andreas Benton MD [facility] Feb 04, 2014 Refill Andreas Benton MD [facility] Feb 20, 2015 adderall Andreas Benton MD [facility] Mar 19, 2015 MEDS. Andreas Benton MD [facility] Apr 23, 2015 Refill Andreas Benton MD [facility] May 22, 2015 LARRY Benton MD [facility] November 17, 2014 Refill Andreas Benton MD [facility] December 16, 2014 Refill Andreas Benton MD [facility] Jan 19, 2015 BACK PAIN Andreas Benton MD [facility] Jan 29, 2015 Problems Problem Type Condition [...] Status Dosage Date Date Ferrous Sulfate MEDISPAN 60622-13 325 (65 Fe) MG Active 1 tablet 08-01 Orally Once a day Ativan MEDISPAN 55546-84 0.5 MG Orally Active 1 tablet 63-01 BID prn Ciprofloxacin HCl MEDISPAN 36023-22 500 mg Orally October 29November 08, Active 1 tablet 37-01 Twice a day 2015 2015 Adderall MEDISPAN 54940-04 30 mg Orally BID Active 1 tablet [...]
--- OUTSIDE RECORDS SUMMARY | 2018-05-06 13:11 | XMS REPORT ---
:1990 Author Organization eClinicalWorks Care Team Providers Name Role Andreas Uribe Provider Role Unavailable Encounters Encounter Location Date NBA Benton MD [facility] Jan 30, 2014 MEDJack Benton MD [facility] Aug 05, 2015 Refill Andreas Benton MD [facility] Jun 19, 2015 Refaparna Benton MD [facility] May 28, 2015 STICHES REMOVAL Andreas Benton MD [facility] October 02, 2015 Refaparna Benton MD [facility] May 15, 2014 JOCELYN/ NBA Benton MD [facility] October 30, 2015 Unknown Andreas Benton MD [facility] Jun 11, 2014 Refill Andreas Benton MD [facility] August 12, 2015 Unknown Andreas Benton MD [facility] Apr 08, 2014 BLOOD LOW/ PASSING OUT Andreas Benton MD [facility] September 16, 2015 Unknown Andreas Benton MD [facility] May 13, 2014 Unknown Andreas Benton MD [facility] Mar 06, 2014 nba Benton MD [facility] Mar 17, 2014 Unknown Andreas Benton MD [facility] November 17, 2015 Unknown Andreas Benton MD [facility] Feb 07, 2014 DRY SOCKET Andreas Benton MD [facility] Feb 12, 2014 Refill Andreas Benton MD [facility] Aug 01, 2014 LETTER NEEDED Andreas Benton MD [facility] October 09, 2013 Unknown Andreas Benton MD [facility] October 21, 2013 Unknown Andreas Benton MD [facility] November 01, 2013 seizure Andreas Benton MD [facility] December 05, 2013 refill Andreas Benton MD [facility] Aug 05, 2013 Refill Andreas Benton MD [facility] September 04, 2013 Refill Andreas Benton MD [facility] October 07, 2013 Unknown Andreas Benton MD [facility] September 05, 2014 add Andreas Benton MD [facility] Jul 14, 2014 Unknown Andreas Benton MD [facility] January 07, 2014 Unknown Andreas Benton MD [facility] Feb 04, 2014 Refill Andreas Benton MD [facility] Feb 20, 2015 adderall Andreas Benton MD [facility] Mar 19, 2015 MEDS. Andreas Benton MD [facility] Apr 23, 2015 Refill Andreas Benton MD [facility] May 22, 2015 ADD Andreas Benton MD [facility] November 17, 2014 Refill Andreas Benton MD [facility] December 16, 2014 Refill Andreas Benton MD [facility] Jan 19, 2015 BACK PAIN Andreas Benton MD [facility] Jan 29, 2015 Problems Problem Type [...] Date End Date Status Dosage Ativan MEDISPAN [address] 0.5 MG Orally BID Active 1 tablet -01 prn Social History Social History Element Qualifiers Date Reported Tobacco Use: . Are you a: current smoker October 30, 2015 Alcohol: . infrequently October 30, 2015 Summary Purpose eClinicalWorks Submission
--- OUTSIDE RECORDS SUMMARY | 2018-05-06 13:11 | XMS REPORT ---
:1990 [facility] Team Providers Name Role Andreas Uribe Provider Role Unavailable Encounters Encounter Location Date NBA Benton MD [facility] Jan 30, 2014 NBA Benton MD [facility] Aug 05, 2015 Refaparna Benton MD [facility] Jun 19, 2015 Refaparna Benton MD [facility] May 28, 2015 Refaparna Benton MD [facility] May 15, 2014 Unknown Andreas Benton MD [facility] Jun 11, 2014 Refaparna Benton MD [facility] August 12, 2015 Unknown Andreas Benton MD [facility] Apr 08, 2014 Unknown Andreas Benton MD [facility] May 13, 2014 Unknown Andreas Benton MD [facility] Mar 06, 2014 nba Benton MD [facility] Mar 17, 2014 Unknown Andreas Benton MD [facility] Feb 07, 2014 DRY SOCKET Andreas Benton MD [facility] Feb 12, 2014 Refaparna Benton MD [facility] Aug 01, 2014 LETTER NEEDED Andreas Benton MD [facility] October 09, 2013 Unknown Andreas Benton MD [facility] October 21, 2013 Unknown Andreas Benton MD [facility] November 01, 2013 seizure Andreas Benton MD [facility] December 05, 2013 refaparna Benton MD [facility] Aug 05, 2013 Refaparna Benton MD [facility] September 04, 2013 Refaparna Benton MD [facility] October 07, 2013 Unknown Andreas Benton MD [facility] September 05, 2014 add Andreas Benton MD [facility] Jul 14, 2014 Unknown Andreas Benton MD [facility] January 07, 2014 Unknown Andreas Benton MD [facility] Feb 04, 2014 Refaparna Benton MD [facility] Feb 20, 2015 adderalgiovanni Benton MD [facility] Mar 19, 2015 MEDS. Andreas Benton MD [facility] Apr 23, 2015 Refill Andreas Benton MD [facility] May 22, 2015 ADD Andreas Benton MD [facility] November 17, 2014 Refill Andreas Benton MD [facility] December 16, 2014 Refill Andresa Benton MD [facility] Jan 19, 2015 BACK PAIN Andreas Benton MD [facility] Jan 29, 2015 Problems Problem [...] Start Date End Date Status [facility] [address] 0.5 MG Orally BID Active 1 tablet -01 prn Social History Social History Element Qualifiers Date Reported Tobacco Use: . Are you a: former smoker quit 11/24/2013 Aug 05, 2015 Alcohol: . infrequently Aug 05, 2015 Summary Purpose eClinicalWorks Submission
--- OUTSIDE RECORDS SUMMARY | 2018-05-06 13:11 | XMS REPORT ---
:1990 Author Organization eClinicalWorks Care Team Providers Name Role Phone Andreas Benton Provider Role Unavailable Allergies, Adverse Reactions, Alerts Substance Reaction Event Type Tramadol seizures Drug Allergy NSAIDs stomach ulcers Non Drug Allergy latex Info Not Available Non Drug Allergy Encounters Encounter Location Date KATARZYNA Benton MD [facility] Jan 30, 2014 MEDSadaf Benton MD [facility] Aug 05, 2015 Refill Andreas Benton MD [facility] Jun 19, 2015 Refill Andreas Benton MD [facility] May 28, 2015 Refaparna Benton MD [facility] May 15, 2014 Unknown Andreas Benton MD [facility] Jun 11, 2014 Unknown Andreas Benton MD [facility] Apr 08, 2014 Unknown Andreas Benton MD [facility] May 13, 2014 Unknown Andreas Benton MD [facility] Mar 06, 2014 medsadaf Benton MD [facility] Mar 17, 2014 Unknown Andreas Benton MD [facility] Feb 07, 2014 DRY SOCKET Andreas Benton MD [facility] Feb 12, 2014 Refaparna Benton MD [facility] Aug 01, 2014 LETTER NEEDED Andreas Benton MD [facility] October 09, 2013 Unknown Andreas Benton MD [facility] October 21, 2013 Unknown Andreas Benton MD [facility] November 01, 2013 seizure Andreas Benton MD [facility] December 05, 2013 refill Andreas Benton MD [facility] Aug 05, 2013 Refill Andreas Benton MD [facility] September 04, 2013 Refill Andreas Benton MD [facility] October 07, 2013 Unknown Andreas Benton MD [facility] September 05, 2014 add Andreas Benton MD [facility] Jul 14, 2014 Unknown Andreas Benton MD [facility] January 07, 2014 Unknown Andreas Benton MD [facility] Feb 04, 2014 Refill Andreas Betnon MD [facility] Feb 20, 2015 adderall Andreas Benton MD [facility] Mar 19, 2015 MEDS. Andreas Benton MD [facility] Apr 23, 2015 Refill Andreas Benton MD [facility] May 22, 2015 ADD Andreas Benton MD [facility] November 17, 2014 Refill Andreas Benton MD [facility] December 16, 2014 Refill Andreas Benton MD [facility] Jan 19, 2015 BACK PAIN Andreas Benton MD [facility] Jan 29, 2015 Problems Problem Type Condition [...] End Date Status Dosage Date Ativan MEDISPAN 32672-264 0.5 MG Orally Active 1 tablet 3-01 BID prn Adderall MEDISPAN 23339-043 30 mg Orally BID Active 1 tablet 8-02 Ferrous Sulfate MEDISPAN 60117-975 325 (65 Fe) MG Active 1 tablet [...]
--- OUTSIDE RECORDS SUMMARY | 2018-05-06 13:11 | XMS REPORT ---
:1990 [facility] Team Providers Name Role Andreas Uribe Provider Role Unavailable Encounters Encounter Location Date MEDS Andreas Benton MD [facility] Jan 30, 2014 Refill Andreas Benton MD [facility] Jun 19, 2015 Refill Anrdeas Benton MD [facility] May 28, 2015 Refaparna Benton MD [facility] May 15, 2014 Unknown Andreas Benton MD [facility] Jun 11, 2014 Unknown Andreas Benton MD [facility] Apr 08, 2014 Unknown Andreas Benton MD [facility] May 13, 2014 Unknown Andreas Benton MD [facility] Mar 06, 2014 meds Andreas Benton MD [facility] Mar 17, 2014 Unknown Andreas Benton MD [facility] Feb 07, 2014 DRY SOCKET Andreas Benton MD [facility] Feb 12, 2014 Refill Andreas Benton MD [facility] Aug 01, 2014 LETTER NEEDED Andreas Benton MD [facility] October 09, 2013 Unknown Andreas Benton MD [facility] October 21, 2013 Unknown Andreas Benton MD [facility] November 01, 2013 seizure Andreas Benton MD [facility] December 05, 2013 refill Andreas Benton MD [facility] Aug 05, 2013 Refill Andreas Benton MD [facility] September 04, 2013 Refill Andreas Benton MD [facility] October 07, 2013 Unknown Andreas Benton MD [facility] September 05, 2014 add Andreas Benton MD [facility] Jul 14, 2014 Unknown Andreas Benton MD [facility] January 07, 2014 Unknown Andreas Benton MD [facility] Feb 04, 2014 Refill Andreas Benton MD [facility] Feb 20, 2015 adderalgiovanni Benton MD [facility] Mar 19, 2015 MEDS. Andreas Benton MD [facility] Apr 23, 2015 Refill Andreas Benton MD [facility] May 22, 2015 ADD Andreas Benton MD [facility] November 17, 2014 Refill Andreas Benton MD [facility] December 16, 2014 Refill Andreas Benton MD [facility] Jan 19, 2015 BACK PAIN Andreas Benton MD [facility] Jan 29, 2015 Problems Problem [...] Start Date End Date Status Dosage Adderall [facility] [address] 30 mg Orally BID Active 1 tablet -02 Social History Social History Element Qualifiers Date Reported Tobacco Use: . Are you a: former smoker quit 11/24/2013 Apr 23, 2015 Alcohol: . infrequently Apr 23, 2015 Summary Purpose eClinicalWorks Submission
--- OUTSIDE RECORDS SUMMARY | 2018-05-06 13:11 | XMS REPORT ---
:1990 Author Organization [facility] Care Team Providers Name Role Andreas Uribe Provider Role Unavailable Encounters Encounter Location Date KATARZYNA Benton MD [facility] Jan 30, 2014 MEDSadaf Benton MD [facility] Aug 05, 2015 Refill Andreas Benton MD [facility] Jun 19, 2015 Refill Andreas Benton MD [facility] May 28, 2015 STICHES REMOVAL Andreas Benton MD [facility] October 02, 2015 Refaparna Benton MD [facility] May 15, 2014 Unknown Andreas Benton MD [facility] Jun 11, 2014 Refaparna Benton MD [facility] August 12, 2015 Unknown Andreas Benton MD [facility] Apr 08, 2014 BLOOD LOW/ PASSING OUT Andreas Benton MD [facility] September 16, 2015 Unknown Andreas Benton MD [facility] May 13, 2014 Unknown Andreas Benton MD [facility] Mar 06, 2014 medsadaf Benton MD [facility] Mar 17, 2014 Unknown Andreas Benton MD [facility] Feb 07, 2014 DRY SOCKET Andreas Benton MD [facility] Feb 12, 2014 Refill Andreas Benton MD [facility] Aug 01, 2014 LETTER NEEDED Andreas Benton MD [facility] October 09, 2013 Unknown Andreas Benton MD [facility] October 21, 2013 Unknown Andreas Benton MD [facility] November 01, 2013 seizure Andreas Benton MD [facility] December 05, 2013 refill Andreas Benton MD [facility] Aug 05, 2013 Refill Andreas Benton MD [facility] September 04, 2013 Refill Andreas Benton MD [facility] October 07, 2013 Unknown Andreas Bneton MD [facility] September 05, 2014 add Andreas Benton MD [facility] Jul 14, 2014 Unknown Andreas Benton MD [facility] January 07, 2014 Unknown Andreas Benton MD [facility] Feb 04, 2014 Refaparna Benton MD [facility] Feb 20, 2015 adderall Andreas Benton MD [facility] Mar 19, 2015 MEDS. Andreas Benton MD [facility] Apr 23, 2015 Refill Andreas Benton MD [facility] May 22, 2015 ADD Andreas Benton MD [facility] November 17, 2014 Refill Andreas Benton MD [facility] December 16, 2014 Refill Andreas Benton MD [facility] Jan 19, 2015 BACK PAIN Andreas Benton MD [facility] Jan 29, 2015 Problems Problem Type [...] Date Status Dosage Date Ferrous Sulfate MEDISPAN 35148-134 325 (65 Fe) MG Active 1 tablet 8-01 Orally Once a day Adderall MEDISPAN 49291-487 30 mg Orally BID Active 1 tablet 8-02 Ativan MEDISPAN 17348-268 0.5 MG Orally Active 1 tablet 3-01 BID prn Social History Social History Element Qualifiers Date Reported Tobacco Use: . Are you a: former smoker quit 11/24/2013 September 16, 2015 Alcohol: . infrequently September 16, 2015 Summary Purpose eClinicalWorks Submission
--- OUTSIDE RECORDS SUMMARY | 2018-05-06 13:11 | XMS REPORT ---
:1990 Author Organization eClinicalWorks Care Team Providers Name Role Phone Andreas Benton Provider Role Unavailable Allergies, Adverse Reactions, Alerts Substance Reaction Event Type Tramadol seizures Drug Allergy NSAIDs stomach ulcers Non Drug Allergy latex Info Not Available Non Drug Allergy Encounters Encounter Location Date KATARZYNA Benton MD [facility] Jan 30, 2014 MEDJack Benton MD [facility] Aug 05, 2015 Refill Andreas Benton MD [facility] Jun 19, 2015 Refill Andreas Benton MD [facility] May 28, 2015 Refill Andreas Benton MD [facility] May 15, 2014 Unknown Andreas Benton MD [facility] Jun 11, 2014 Refill Andreas Benton MD [facility] August 12, 2015 Unknown Andreas Benton MD [facility] Apr 08, 2014 BLOOD LOW/ PASSING OUT Andreas Benton MD [facility] September 16, 2015 Unknown Andreas Benton MD [facility] May 13, 2014 Unknown Andreas Benton MD [facility] Mar 06, 2014 meds Andreas Benton MD [facility] Mar 17, 2014 Unknown Andreas Benton MD [facility] Feb 07, 2014 DRY SOCKET Andreas Benton MD [facility] Feb 12, 2014 Refill Andreas Benton MD [facility] Aug 01, 2014 LETTER NEEDED Andreas Benton MD [facility] October 09, 2013 Unknown Andreas Benton MD [facility] October 21, 2013 Unknown Andreas Benton MD [facility] November 01, 2013 seizure Andreas Benton MD [facility] December 05, 2013 refill Andreas Benton MD [facility] Aug 05, 2013 Refill Andreas Benton MD [facility] September 04, 2013 Refill Andreas Benton MD [facility] October 07, 2013 Unknown Andreas Benton MD [facility] September 05, 2014 add Andreas Benton MD [facility] Jul 14, 2014 Unknown Andreas Benton MD [facility] January 07, 2014 Unknown Andreas Benton MD [facility] Feb 04, 2014 Refill Andreas Benton MD [facility] Feb 20, 2015 adderall Andreas Benton MD [facility] Mar 19, 2015 MEDS. Andreas Benton MD [facility] Apr 23, 2015 Refill Andreas Benton MD [facility] May 22, 2015 ADD Andreas Benton MD [facility] November 17, 2014 Refill Andreas Benton MD [facility] December 16, 2014 Refill Andreas Benton MD [facility] Jan 19, 2015 BACK PAIN Andreas Benton MD [facility] Jan 29, 2015 Problems Problem [...] End Date Status Dosage Date Adderall MEDISPAN 33704-876 30 mg Orally BID Active 1 tablet 8-02 Ativan MEDISPAN 87346-710 0.5 MG Orally Active 1 tablet 3-01 BID prn Ferrous Sulfate MEDISPAN 56182-773 325 (65 Fe) MG Active 1 tablet [...]
--- OUTSIDE RECORDS SUMMARY | 2018-05-06 13:12 | XMS REPORT ---
:1990 Author Organization eClinicalWorks Care Team Providers Name Role Phone Andreas Benton Provider Role Unavailable Encounters Encounter Location Date MEDS Andreas Benton MD [facility] Jan 30, 2014 MEDS Andreas Benton MD [facility] Aug 05, 2015 Refill Andreas Benton MD [facility] Jun 19, 2015 Refill Andreas Benton MD [facility] May 28, 2015 STICHES REMOVAL Andreas Benton MD [facility] October 02, 2015 Refill Andreas Benton MD [facility] May 15, 2014 JOCELYN/ MEDS Andreas Benton MD [facility] October 30, 2015 Unknown Andreas Benton MD [facility] Jun 11, 2014 Refill Andreas Benton MD [facility] August 12, 2015 Unknown Andreas Benton MD [facility] Apr 08, 2014 BLOOD LOW/ PASSING OUT Andreas Benton MD [facility] September 16, 2015 Unknown Andreas Benton MD [facility] May 13, 2014 HOSP FU/MED REFILLS Andreas Benton MD [facility] Apr 28, 2016 Unknown Andreas Benton MD [facility] Mar 06, 2014 medsadaf Benton MD [facility] Mar 17, 2014 Unknown Andreas Benton MD [facility] November 17, 2015 Unknown Andreas Benton MD [facility] Feb 07, 2014 F/U MEDS Andreas Benton MD [facility] Feb 08, 2016 DRY SOCKET Andreas Benton MD [facility] Feb 12, 2014 Refill Andreas Benton MD [facility] Aug 01, 2014 LETTER NEEDED Andreas Benton MD [facility] October 09, 2013 Unknown Andreas Benton MD [facility] October 21, 2013 Unknown Andreas Benton MD [facility] November 01, 2013 seizure Andreas Benton MD [facility] December 05, 2013 refill Andreas Benton MD [facility] Aug 05, 2013 Refill Andreas Benton MD [facility] September 04, 2013 Refill Andreas Benton MD [facility] October 07, 2013 Unknown Andreas Benton MD [facility] September 05, 2014 larry Benton MD [facility] Jul 14, 2014 refill-larryerall Andreas Benton MD [facility] Jun 08, 2016 Unknown Andreas Benton MD [facility] January 07, 2014 refill-dennis Benton MD [facility] May 10, 2016 Unknown Andreas Benton MD [facility] Feb 04, 2014 Refill Andreas Benton MD [facility] Feb 20, 2015 adderall Andreas Benton MD [facility] Mar 19, 2015 MEDS. Andreas Benton MD [facility] Apr 23, 2015 Refill Andreas Benton MD [facility] May 22, 2015 ADD Andreas Benton MD [facility] November 17, 2014 Refill Andreas Benton MD [facility] December 16, 2014 Refill Andreas Benton MD [facility] Jan 19, 2015 BACK PAIN Andreas Benton MD [facility] Jan 29, 2015 Problems Problem Type [...] Start Date End Date Status Dosage Adderall [facility] [address] 30 MG Orally BID Jun 09, Active 1 tablet -2015 Social History Social History Element Qualifiers Date Reported Tobacco Use: . Are you a: current smoker Apr 28, 2016 Alcohol: . infrequently Apr 28, 2016 Summary Purpose eClinicalWorks Submission
--- OUTSIDE RECORDS SUMMARY | 2018-05-06 13:12 | XMS REPORT ---
:1990 Author Organization eClinicalWorks Care Team Providers Name Role Phone Andreas Benton Provider Role Unavailable Encounters Encounter Location Date MEDS Andreas Benton MD [facility] Jan 30, 2014 MEDS Andreas Benton MD [facility] Aug 05, 2015 Refill Andreas Benton MD [facility] Jun 19, 2015 Refill Andreas Benton MD [facility] May 28, 2015 STICHES REMOVAL Andreas Benton MD [facility] October 02, 2015 Refill Andreas Benton MD [facility] May 15, 2014 JOCELYN/ MEDS Andreas Benton MD [facility] October 30, 2015 Unknown Andreas Benton MD [facility] Jun 11, 2014 Refill Andreas Benton MD [facility] August 12, 2015 Unknown Andreas Benton MD [facility] Apr 08, 2014 BLOOD LOW/ PASSING OUT Andreas Benton MD [facility] September 16, 2015 Unknown Andreas Benton MD [facility] May 13, 2014 HOSP FU/MED REFILLS Andreas Benton MD [facility] Apr 28, 2016 Unknown Andreas Benton MD [facility] Mar 06, 2014 medsadaf Benton MD [facility] Mar 17, 2014 Unknown Andreas Benton MD [facility] November 17, 2015 Unknown Andreas Benton MD [facility] Feb 07, 2014 F/U MEDS Andreas Benton MD [facility] Feb 08, 2016 DRY SOCKET Andreas Benton MD [facility] Feb 12, 2014 Refill Andreas Benton MD [facility] Aug 01, 2014 LETTER NEEDED [facility] October 07, 2013 Unknown Andreas Benton MD [facility] September 05, 2014 larry Benton MD [facility] Jul 14, 2014 refill-larryerall Andreas Benton MD [facility] Jun 08, 2016 Unknown Andreas Benton MD [facility] January 07, 2014 refill-dennis Benton MD [facility] May 10, 2016 Unknown Andreas Benton MD [facility] Feb 04, 2014 Refill Andreas Benton MD [facility] Jul 07, 2016 Refill Andreas Benton MD [facility] Feb 20, 2015 adderall Andreas Benton MD [facility] Mar 19, 2015 MEDS. Andreas Benton MD [facility] Apr 23, 2015 Refill Andreas Benton MD [facility] May 22, 2015 LARRY Benton MD [facility] November 17, 2014 Refill Andreas Benton MD [facility] December 16, 2014 Refill Andreas Benton MD [facility] Jan 19, 2015 BACK PAIN Andreas Benton MD [facility] Jan 29, 2015 Problems Problem Type [...] Start Date End Date Status [facility] [address] 30 MG Orally BID Jul 08, Active 1 tablet -2016 Social History Social History Element Qualifiers Date Reported Tobacco Use: . Are you a: current smoker Apr 28, 2016 Alcohol: . infrequently Apr 28, 2016 Summary Purpose eClinicalWorks Submission
--- OUTSIDE RECORDS SUMMARY | 2018-05-06 13:12 | XMS REPORT ---
:1990 Author Organization eClinicalWorks Care Team Providers Name Role Phone Andreas Benton Provider Role Unavailable Encounters Encounter Location Date MEDS Andreas Benton MD [facility] Jan 30, 2014 MEDS Andreas Benton MD [facility] Aug 05, 2015 Refill [address] B[address] [facility] Jun 19, 2015 Refill [address] Benton MD [facility] May 28, 2015 STICHES REMOVAL Andreas Benton MD [facility] October 02, 2015 Refill Andreas Benton MD [facility] May 15, 2014 JOCELYN/ MEDS Andreas Benton MD [facility] October 30, 2015 Unknown [address] B[address] [facility] Jun 11, 2014 Refill Andreas Benton MD [facility] August 12, 2015 Unknown [address] [facility] Apr 08, 2014 BLOOD LOW/ PASSING OUT Andreas Benton MD [facility] September 16, 2015 Unknown [address] B[address] [facility] May 13, 2014 HOSP FU/MED REFILLS Andreas Benton MD [facility] Apr 28, 2016 Unknown [address] B[address] [facility] Mar 06, [address] [facility] Mar 17, 2014 Unknown [address] Benton [address] [facility] November 17, 2015 Unknown [address] B[address] [facility] Feb 07, 2014 F/U MEDS Andreas Benton MD [facility] Feb 08, 2016 DRY SOCKET Andreas Benton MD [facility] Feb 12, 2014 Refill Andreas Benton MD [facility] Aug 01, 2014 LETTER NEEDED Andreas Benton MD [facility] October 09, 2013 Unknown Andreas Benton [address] [facility] October 21, 2013 Unknown [address] B[address] [facility] November 01, 2013 seizure Andreas B[address] [facility] December 05, 2013 refill Andreas Benton MD [facility] Aug 05, 2013 Refill Andreas Benton MD [facility] September 04, 2013 Refill Andreas Benton [address] [facility] October 07, 2013 Unknown Andreas B[address] [facility] September 05, [address] [facility] Jul 14, 2014 refill-dennis Benton MD [facility] Jun 08, 2016 Unknown [address] B[address] [facility] January 07, 2014 refill-dennis Benton MD [facility] May 10, 2016 Unknown [address] B[address] [facility] Feb 04, 2014 MED REFILL Andreas Benton MD [facility] August 16, 2016 Refill [address] Benton [address] [facility] Jul 07, 2016 Refill Andreas Benton MD [facility] Feb 20, 2015 adderall [address] Benton MD [facility] Mar 19, 2015 MEDS. [address] Benton MD [facility] Apr 23, 2015 Refill Andreas Benton MD [facility] May 22, 2015 ADD [address] B[address] [facility] November 17, 2014 Refill Andreas Benton MD [facility] December 16, 2014 Refill [address] Benton [address] [facility] Jan 19, 2015 BACK PAIN Andreas Benton MD [facility] Jan 29, 2015 Problems Problem Type [...] End Date Status Dosage Date Adderall MEDISPAN 59293-012 30 MG Orally BID Jul 08, Active 1 tablet 01-11 Flexeril Unknown 0 10 MG Orally Active 1 tablet every 8 hours as needed for spasm Ferrous Sulfate MEDISPAN 98956-998 325 (65 Fe) MG Active 1 tablet 8-01 Orally Once a day Ativan MEDISPAN 20314-872 0.5 MG Orally Active 1 tablet 3-01 BID prn Social History Social History Element Qualifiers Date Reported Tobacco Use: . Are you a: current smoker Apr 28, 2016 Alcohol: . infrequently Apr 28, 2016 Summary Purpose eClinicalWorks Submission
--- OUTSIDE RECORDS SUMMARY | 2018-05-06 13:12 | XMS REPORT ---
:1990 Author Organization eClinicalWorks Care Team Providers Name Role Phone Andreas Benton Provider Role Unavailable Allergies, Adverse Reactions, Alerts Substance Reaction Event Type Tramadol seizures Drug Allergy latex Info Not Available Non Drug Allergy NSAIDs stomach ulcers Non Drug Allergy Encounters Encounter Location Date ANDRESS Andreas Benton MD [facility] Jan 30, 2014 MEDS Andreas Benton MD [facility] Aug [...] MD [facility] May 13, 2014 HOSP FU/MED REFILLS Andreas Benton MD [facility] Apr 28, 2016 Unknown Andreas Benton [address] [facility] Mar 06, 2014 meds [address] Benton MD [facility] Mar 17, [...] hours as needed for spasm Adderall MEDISPAN 91065-701 30 mg Orally BID Active 1 tablet 8-02 Ferrous Sulfate MEDISPAN 53137-816 325 (65 Fe) MG Active 1 tablet 8-01 Orally Once a day Ativan MEDISPAN 34622-866 0.5 MG Orally Active 1 tablet 3-01 [...]
--- OUTSIDE RECORDS SUMMARY | 2018-05-06 13:12 | XMS REPORT ---
:1990 Author Organization eClinicalWorks Care Team Providers Name Role Phone Andreas Benton Provider Role Unavailable Encounters Encounter Location Date MEDS Andreas Benton MD [facility] Jan 30, 2014 MEDS [address] B[address] [facility] Aug 05, 2015 Refill [address] B[address] [facility] Jun 19, 2015 Refill [address] B[address] [facility] May 28, 2015 STICHES REMOVAL Andreas Benton MD [facility] October 02, 2015 Refill Andreas Benton MD [facility] May 15, 2014 JOCELYN/ MEDS Andreas Benton MD [facility] October 30, 2015 Unknown [address] [facility] Jun 11, 2014 Refill Andreas Benton MD [facility] August 12, 2015 Unknown [address] [facility] Apr 08, 2014 BLOOD LOW/ PASSING OUT Andreas Benton MD [facility] September 16, 2015 Unknown [address] [facility] May 13, 2014 HOSP FU/MED REFILLS Andreas Benton MD [facility] Apr 28, 2016 Unknown [address] B[address] [facility] Mar 06, [address] [facility] Mar 17, 2014 Unknown [address] B[address] [facility] November 17, 2015 Unknown [address] B[address] [facility] Feb 07, 2014 F/U MEDS Andreas Benton MD [facility] Feb 08, 2016 DRY SOCKET Andreas Benton MD [facility] Feb 12, 2014 Refill Andreas Benton MD [facility] Aug 01, 2014 LETTER NEEDED Andreas Benton MD [facility] October 09, 2013 Unknown Andreas B[address] [facility] October 21, 2013 Unknown [address] B[address] [facility] November 01, 2013 seizure Andreas B[address] [facility] December 05, 2013 refill Andreas Benton MD [facility] Aug 05, 2013 Refill Andreas Benton MD [facility] September 04, 2013 Refill [address] B[address] [facility] October 07, 2013 Unknown [address] B[address] [facility] September 05, 2014 add Andreas Benton MD [facility] Jul 14, 2014 Unknown Andreas B[address] [facility] January 07, 2014 refill-dennis Benton MD [facility] May 10, 2016 Unknown [address] B[address] [facility] Feb 04, 2014 Refill Andreas Benton MD [facility] Feb 20, 2015 adderall [address] B[address] [facility] Mar 19, 2015 MEDS. [address] B[address] MD [facility] Apr 23, 2015 Refill [address] B[address] [facility] May 22, 2015 ADD [address] [facility] November 17, 2014 Refill Andreas Benton MD [facility] December 16, 2014 Refill Andreas B[address] [facility] Jan 19, 2015 BACK PAIN Andreas Benton MD [facility] Jan 29, 2015 Problems Problem Type [...] End Date Status [facility]osage [facility] [address] 30 MG Orally BID May 10, Active 1 tablet -2015 Social History Social History Element Qualifiers Date Reported Tobacco Use: . Are you a: current smoker Apr 28, 2016 Alcohol: . infrequently Apr 28, 2016 Summary Purpose eClinicalWorks Submission
--- OUTSIDE RECORDS SUMMARY | 2018-05-06 13:12 | XMS REPORT ---
:1990 [facility] [address] [place] [address] [address] [place] [address] Care Team Providers Name Role Phone FARRUKH [...] THC (test code=THC) POSITIVE Negative Comprehensive Metabolic [id number] 22:56:00 Test Item Value Reference Range Comments [...] race is not provided, and the patient isAfrican-Kazakh, multiply by 1.212. If sex is not provided, and thepatient is female, multiply by 0.742. Results for patients <18 years ofage have not been validated by the MDRD study and should be interpretedwith caution.eGFR Result Interpretation:eGFR > or=60 is in the Normal RangeeGFR < 60 may mean kidney diseaseeGFR < 15 may mean kidney failureRanges recommended by the National Kidney Foundation,http://nkdep.nih .gov Alcohol/Ethanol, [id number] 22:56:00 Test Item Value Reference Range Comments Alcohol, Ethyl (test 0.25 g/dL 0.00-0.01 Intoxicated 0.080 g/dL or code=ETOH) more Urinalysis [id number] 22:54:00 Test Item Value Reference Range Comments Color (test code=COLOR) Daisha Yellow,Straw,Pl yellow Clarity (test code=CLAR) Clear Clear Specific [place] (test 1.020 1.001-1.035 code=SPGR) pH (test code=PH) [...] Bacteria (test code=BACT) Few /HPF BHCG, Urine, [id number] 22:50:00 Test Item Value Reference Range Comments Preg Qual [Ur] (test code=HUHCG) Negative Negative CBC with [id number] 22:38:00 Test Item Value Reference Range Comments [...] Lymph Abs (test code=ALYMPH) 1.6 K/cumm 0.5-4.6 [place] Abs (test code=AMONO) 0.2 K/cumm 0.0-1.2 Eos Abs (test code=AEOS) 0.09 K/cumm 0.00-0.74 Baso Abs (test code=ABASO) 0.0 K/cumm 0.00-0.21
[2018-05-06 14:50] LABS: Urine Blood NEGATIVE (NEG); Urine Glucose NEGATIVE (NEG); Urine Protein 2+ (NEG); Urine Specific Gravity 1.025 (1.005-1.030); Urine pH 7.5 (5.0-7.0)
--- NOTE | 2018-05-06 14:55 | ER ---
Nurse's Notes [facility] Unit Name: Shae Dockery Age: 28 yrs Sex: Female : 1990 Arrival Date: 05/06/2018 Time: 13:01 Bed 25 Private MD: Diagnosis: Abrasion, right lower leg;Cellulitis and acute lymphangitis of other parts of limb Presentation: 05/06 13:14 Presenting complaint: Patient states: Dizziness for the past 4 days. States that she la1 fell down some steps on , and got a wound to her right murphy, she was seen in the ER at [facility] for it, but now the wound is red and swollen and it hurts to walk on. Transition of care: patient was not received from another setting of care. 13:14 Method Of Arrival: Ambulatory la1 13:16 Onset of symptoms was May 03, 2018. Risk Assessment: Do you want to hurt yourself la1 or someone else? Patient reports no desire to harm self or others. Initial Sepsis Screen: Does the patient meet any 2 criteria? No. Patient's initial sepsis screen is negative. Does the patient have a suspected source of infection? No. Patient's initial sepsis screen is negative. Care prior to arrival: None. 13:16 Acuity: AYESHA 3 la1 Triage Assessment: 13:18 General: Appears in no apparent distress. comfortable, Behavior is calm, cooperative, la1 appropriate for age. Pain: Complains of pain in right murphy Pain currently is 10 out of 10 on a pain scale. Neuro: Level of Consciousness is awake, alert, obeys commands. Cardiovascular: Patient's skin is warm and dry. Respiratory: Airway is patent Respiratory effort is even, unlabored, Respiratory pattern is regular, symmetrical. 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 - Social history:: Smoking status: Patient uses tobacco products, denies chronic smoking, but will smoke occasionally. - Ebola Screening: : Patient denies travel to an Ebola-affected area in the 21 days before illness onset. - Family history:: not pertinent. Screenin:59 Abuse screen: Denies threats or abuse. Nutritional screening: No deficits noted. tl3 Tuberculosis screening: No symptoms or risk factors identified. Fall Risk None identified. Assessment: 13:59 General: Appears uncomfortable, well groomed, well developed, well nourished, Behavior tl3 is calm, cooperative, appropriate for age. Pain: Complains of pain in right leg and right murphy Pain currently is 8 out of 10 on a pain scale. Neuro: Level of Consciousness is awake, alert, obeys commands, Oriented to person, place, time, situation, Appropriate for age. Cardiovascular: Patient's skin is warm and dry. Respiratory: Airway is patent Respiratory effort is even, unlabored, Respiratory pattern is regular, symmetrical. GI: No deficits noted. No signs and/or symptoms were reported involving the gastrointestinal system. : No deficits noted. No signs and/or symptoms were reported regarding the genitourinary system. EENT: No deficits noted. No signs and/or symptoms were reported regarding the EENT system. Derm: Wound noted right leg and right murphy Wound is [place] [facility] on . area red, painful with red streak going up the leg. Yellow crusty drainage noted. Musculoskeletal: No deficits noted. No signs and/or symptoms reported regarding the musculoskeletal system. 15:16 Reassessment: Patient appears in no apparent distress at this time. No changes from tl3 previously documented assessment. Patient and/or family updated on plan of care and expected duration. Pain level reassessed. Patient is alert, oriented x 3, equal unlabored respirations, skin warm/dry/pink. Vital Signs: 13:18 BP 145 / 94; Pulse 104; Resp 20; Temp 97.6; Pulse Ox 100% on R/A; Weight 77.11 kg (R); la1 Height 5 ft. 7 in. (170.18 cm) (R); Pain 10/10; 13:59 BP 136 / 93; Pulse 98; Resp 18; Pulse Ox 98% ; tl3 15:16 BP 131 / 84; Pulse 108; Resp 18; Pulse Ox 98% on R/A; tl3 13:18 Body Mass Index 26.63 (77.11 kg, 170.18 cm) la1 ED Course: 13:01 Patient arrived in ED. rg4 13:17 Triage completed. la1 13:18 Arm band placed on Patient placed in an exam room. la1 13:23 Alex Velazquez MD is Attending Physician. shaun 13:41 Luz Marina Suggs, MICHELLE is Primary Nurse. tl3 13:59 Patient has correct armband on for positive identification. tl3 13:59 No provider procedures requiring assistance completed. Inserted saline lock: in right tl3 forearm, using aseptic technique. Blood collected. 14:59 X-ray completed. Portable x-ray completed in exam room. Patient tolerated procedure ls3 well. 15:01 Tib Fib Right XRAY In Process Unspecified. EDMS 15:16 IV discontinued, intact, bleeding controlled, No redness/swelling at site. Pressure tl3 dressing applied. Administered Medications: 15:13 Drug: Bactrim (160 mg-800 mg (DS) 1 tablet Route: PO; tl3 15:15 Follow up: Response: Medication administered at discharge. tl3 15:14 Drug: [place] 10 mg-325 mg 1 tabs Route: PO; tl3 15:16 Follow up: Response: Medication administered at discharge. tl3 15:14 Drug: Doxycycline 200 mg Route: PO; tl3 15:15 Follow up: Response: Medication administered at discharge. tl3 15:15 Drug: Silvadene Cream 1 % 1 application Route: Topical; Site: wound; tl3 15:16 Follow up: Response: No adverse reaction tl3 Outcome: 14:55 Discharge ordered by . shaun 15:16 Discharged to home ambulatory. tl3 15:16 Condition: stable 15:16 Discharge instructions given to patient, Instructed on discharge instructions, follow up and referral plans. medication usage, Demonstrated understanding of instructions, follow-up care, medications, Prescriptions given X 3. 15:18 Patient left the ED. tl3 Signatures: Dispatcher [employer] EDMS Alex Velazquez MD MD cha Attema, Lee RN RN carol1 Chrissy Archer rg4 Luz Marina Suggs, RN RN tl3 Luana Pearce ls3
--- NOTE | 2018-05-06 14:55 | EDPHYS ---
Physician Documentation [facility] Name: Shae Dockery Age: 28 yrs Sex: Female : 1990 Arrival Date: 05/06/2018 Time: 13:01 Bed 25 Private MD: ED Physician Alex Velazquez HPI: 05/06 14:23 This 28 yrs old Female presents to ER via Ambulatory with complaints of shaun Weakness, Leg Infection. 14:23 The patient presents to the emergency department with difficult walking, the patient shaun cannot walk. Onset: The symptoms/episode began/occurred 3 day(s) ago. Context: occurred at home. Severity of symptoms: At their worst the symptoms were mild moderate in the emergency department the symptoms are unchanged. Patient's baseline: Neuro:. The patient has not experienced similar symptoms in the past. 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 - Social history:: Smoking status: Patient uses tobacco products, denies chronic smoking, but will smoke occasionally. - Ebola Screening: : Patient denies travel to an Ebola-affected area in the 21 days before illness onset. - Family history:: not pertinent. ROS: 14:23 Constitutional: Negative for fever, chills, and weight loss, Eyes: Negative for injury, shaun pain, redness, and discharge, ENT: Negative for injury, pain, and discharge, Neck: Negative for injury, pain, and swelling, Cardiovascular: Negative for chest pain, palpitations, and edema, Respiratory: Negative for shortness of breath, cough, wheezing, and pleuritic chest pain, Abdomen/GI: Negative for abdominal pain, nausea, vomiting, diarrhea, and constipation, Back: Negative for injury and pain, : Negative for injury, bleeding, discharge, and swelling, Skin: Negative for injury, rash, and discoloration, Neuro: Negative for headache, weakness, numbness, tingling, and seizure, Psych: Negative for depression, anxiety, suicide ideation, homicidal ideation, and hallucinations, Allergy/Immunology: Negative for hives, rash, and allergies, Endocrine: Negative for neck swelling, polydipsia, polyuria, polyphagia, and marked weight changes, Hematologic/Lymphatic: Negative for swollen nodes, abnormal bleeding, and unusual bruising. 14:23 MS/extremity: Positive for decreased range of motion, pain, swelling, tenderness, of the right murphy. Exam: 14:23 Constitutional: This is a well developed, well nourished patient who is awake, alert, shaun and in no acute distress. Head/Face: Normocephalic, atraumatic. Eyes: Pupils equal round and reactive to light, extra-ocular motions intact. Lids and lashes normal. Conjunctiva and sclera are non-icteric and not injected. Cornea within normal limits. Periorbital areas with no swelling, redness, or edema. ENT: Nares patent. No nasal discharge, no septal abnormalities noted. Tympanic membranes are normal and external auditory canals are clear. Oropharynx with no redness, swelling, or masses, exudates, or evidence of obstruction, uvula midline. Mucous membranes moist. Neck: Trachea midline, no thyromegaly or masses palpated, and no cervical lymphadenopathy. Supple, full range of motion without nuchal rigidity, or vertebral point tenderness. No Meningismus. Chest/axilla: Normal chest wall appearance and motion. Nontender with no deformity. No lesions are appreciated. Cardiovascular: Regular rate and rhythm with a normal S1 and S2. No gallops, murmurs, or rubs. Normal PMI, no JVD. No pulse deficits. Respiratory: Lungs have equal breath sounds bilaterally, clear to auscultation and percussion. No rales, rhonchi or wheezes noted. No increased work of breathing, no retractions or nasal flaring. Abdomen/GI: Soft, non-tender, with normal bowel sounds. No distension or tympany. No guarding or rebound. No evidence of tenderness throughout. Back: No spinal tenderness. No costovertebral tenderness. Full range of motion. Female : Normal external genitalia. MS/ Extremity: Pulses equal, no cyanosis. Neurovascular intact. Full, normal range of motion. Neuro: Awake and alert, GCS 15, oriented to person, place, time, and situation. Cranial nerves II-XII grossly intact. Motor strength 5/5 in all extremities. Sensory grossly intact. Cerebellar exam normal. Normal gait. Psych: Awake, alert, with orientation to person, place and time. Behavior, mood, and affect are within normal limits. 14:23 Skin: cellulitis, injury, avulsion(s), a small contusion(s), that are deep, of the right murphy. Vital Signs: 13:18 BP 145 / 94; Pulse 104; Resp 20; Temp 97.6; Pulse Ox 100% on R/A; Weight 77.11 kg (R); la1 Height 5 ft. 7 in. (170.18 cm) (R); Pain 10/10; 13:59 BP 136 / 93; Pulse 98; Resp 18; Pulse Ox 98% ; tl3 15:16 BP 131 / 84; Pulse 108; Resp 18; Pulse Ox 98% on R/A; tl3 13:18 Body Mass Index 26.63 (77.11 kg, 170.18 cm) la1 MDM: 13:23 Patient medically screened. [facility] 14:26 Data reviewed: vital signs, nurses notes, lab test result(s), radiologic studies, plain shaun films. 05/06 14:44 Order name: Urine Dipstick--Ancillary (enter results); Complete Time: 14:54 05/06 14:44 Order name: Urine --Ancillary (enter results); Complete Time: 14:54 05/06 14:23 Order name: Tib Fib Right XRAY [facility] 05/06 14:23 Order name: Urine Dipstick-Ancillary (obtain specimen); Complete Time: 15:15 [facility] 05/06 14:23 Order name: Urine Test (obtain specimen); Complete Time: 15:15 [facility] Administered Medications: 15:13 Drug: Bactrim (160 mg-800 mg (DS) 1 tablet Route: PO; tl3 15:15 Follow up: Response: Medication administered at discharge. tl3 15:14 Drug: [place] 10 mg-325 mg 1 tabs Route: PO; tl3 15:16 Follow up: Response: Medication administered at discharge. tl3 15:14 Drug: Doxycycline 200 mg Route: PO; tl3 15:15 Follow up: Response: Medication administered at discharge. tl3 15:15 Drug: Silvadene Cream 1 % 1 application Route: Topical; Site: wound; tl3 15:16 Follow up: Response: No adverse reaction tl3 Disposition: 05/06/18 14:55 Discharged to Home. Impression: Abrasion, right lower leg, Cellulitis and acute lymphangitis of other parts of limb. - Condition is Stable. - Discharge Instructions: Deep Skin Avulsion, Cellulitis, Adult, [id number]. - Prescriptions for Doxycycline Hyclate 100 mg Oral Tablet - take 1 tablet by ORAL route every 12 hours; 20 tablet. Silvadene 1 % Topical Cream - Apply to affected area 1 application by TOPICAL route every 12 hours; 50 gram. Bactrim DS 800- 160 mg Oral Tablet - take 1 tablet by ORAL route every 12 hours for 10 days; 20 tablet. Tylenol- Codeine #3 300-30 mg Oral Tablet - take 2 tablets by ORAL route every 6 hours As needed; 26 tablet. - Medication Reconciliation Form, Thank You Letter, Antibiotic Education, Prescription Opioid Use form. - Follow up: Private Physician; When: 2 - 3 days; Reason: Recheck today's complaints, Continuance of care, Re-evaluation by your physician. - Problem is new. - Symptoms have improved. Signatures: Dispatcher [employer] EDAlex Patiño MD MD cha Attema, Lee, RN RN la1 Luz Marina Suggs RN RN tl3 Corrections: (The following items were deleted from the chart) 15:14 14:27 Accucheck ordered. shaun Annemarie 15:18 14:55 05/06/2018 14:55 Discharged to Home. Impression: Abrasion, right lower leg; tl3 Cellulitis and acute lymphangitis of other parts of limb. Condition is Stable. Discharge Instructions: Deep Skin Avulsion, Cellulitis, Adult, [id number]. Prescriptions for Doxycycline Hyclate 100 mg Oral Tablet - take 1 tablet by ORAL route every 12 hours; 20 tablet, Silvadene 1 % Topical Cream - Apply to affected area 1 application by TOPICAL route every 12 hours; 50 gram, Bactrim DS 800-160 mg Oral Tablet - take 1 tablet by ORAL route every 12 hours for 10 days; 20 tablet. and Forms are Medication Reconciliation Form, Thank You Letter, Antibiotic Education, Prescription Opioid Use. Follow up: Private Physician; When: 2 - 3 days; Reason: Recheck today's complaints, Continuance of care, Re-evaluation by your physician. Problem is new. Symptoms have improved. shaun
[2018-05-06] MEDS ORDERED: SMZ./TMP. 800/160 MG TABLET ONE (15:04)
[2018-05-06] MEDS ORDERED: HYDROCODONE/APAP 10/325 TAB ONE (15:04)
[2018-05-06] MEDS ORDERED: SILVER SULFADIAZINE 1% 25 GM TOP ONE (15:05)
[2018-05-06] MEDS ORDERED: DOXYCYCLINE 100 MG CAP PO ONE (15:05)
--- NOTE | 2018-05-06 15:17 | RAD REPORT ---
EXAM DESCRIPTION: RAD - Tib Fib Right - 05/06/2018 3:01 pm CLINICAL HISTORY: PAIN History of fall COMPARISON: No comparisons FINDINGS: No bone or joint abnormality is detected. Tiny calcaneal spurs.
== END 2018-05-06 15:18 | disposition home or self-care (01) ==
LOC: ER 12:57
DX: S80.811A Abrasion, right lower leg, initial encounter (principal); L03.115 Cellulitis of right lower limb; Z72.0 Tobacco use; F90.9 Attention-deficit hyperactivity disorder, unspecified type; F41.9 Anxiety disorder, unspecified; F31.9 Bipolar disorder, unspecified; W10.9XXA Fall (on) (from) unspecified stairs and steps, initial encounter; Z79.899 Other long term (current) drug therapy
CPT/HCPCS: 81003; 81025; 82962; 99284

== ENCOUNTER 2019-08-24 09:46 | Emergency (ER) | payer SELFPAY ==
--- OUTSIDE RECORDS SUMMARY | 2019-08-24 09:51 | XMS REPORT ---
:1990 [facility] [address] [place] [address] Care Team Providers Name Role Phone FARRUKH VALIENTE Primary Care Provider Unavailable SERA PANG Unavailable Unavailable FARRUKH VALIENTE Unavailable Unavailable Payers Payer Name Policy Type Policy Number Effective Date Expiration Date Problems This patient has no known problems. Allergies, Adverse Reactions, Alerts Allergy Name Allergy Status Severity Reaction(s) Onset Inactive Treating Comments Type Date Date Clinician tramadol DA Active MO 2019-0 8-15 00:00: 00 acetaminophen DA Active MO 2019-0 8-15 00:00: 00 ibuprofen DA Active MO 2019-0 8-15 00:00: 00 latex DA Active MO 2019-0 8-15 00:00: 00 Medications This patient has no known medications. 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 PYLORI ORGANISMS Signing Pathologist Direct Phone Line: [phone] signed by Ashley Kc MD on 07/12/2019 at 2:29 [id number]; [id number] Biopsy, gastricSpecimen is received in fixative and designated as "biopsy, gastric" and consists of three pink-ghosh tissue fragments ranging in size from 0.2 to 0.3 cm in greatest dimension. The tissue fragment is entirely submitted into A1. Performed The interpretation of this case included the use of immunohistochemistry or special stains.Warthin-starry stain: Negative for Helicobacter Pylori organismsControl Slides Examined: In-house known positive controls were evaluated along with the test tissue. These control slides run alongside of the patients sample show appropriate staining. Internal positive and negative controls when available are evaluated Immunohistochemistry technical testing was performed at [facility] where it was developed and its performance characteristics were determined. It has not been cleared or approved by the U.S. Food and Drug Administration. The FDA has determined that such clearance or approval is not necessary. The test is used for clinical purposes. It should not be regarded as investigational or for research. This laboratory is certified under the Clinical Laboratory Improvement Amendments of 1988 (CLIA-88) as qualified to perform high complexity clinical laboratory testing.[facility], Department of Pathology, [address] [place] [address], [facility], Department of Pathology, [address] [place] [address], [facility], [address] [place] [address], U/S, ABDOMINAL, 2019-07-11 Abdomen limited area? FINAL REPORT PATIENT ID: LIMITED 19:39:00 Add comment if [id number] Abdominal ultrasound clarification is dated 07/11/2019 Comment: needed.->LiverReason Real-time transabdominal for exam:->RUQ ultrasound of the right upper sonogram for quadrant abdomen was gallbladder, liver, performed. Liver is normal in CBD. Elevated LFT size and measures 15 cm in length. The echogenicity of the liver is increased. No focal lesion is noted in the liver. Gallbladder is noted visualized. Moderate to severe biliary dilatation is seen. Common bile duct measures 10 mm in diameter. Main portal vein measures 13 mm in diameter. Pancreas is suboptimally visualized. Right kidney measures 10.5 x 4.3 x 5.0 cm. Echogenicity of the right kidney is normal. No ascites is present in the abdomen. Abdominal aorta is normal in caliber. IVC and Hepatic veins are patent. Impression: 1. Echogenic liver suggestive of fatty hepatic infiltrate.2. Biliary dilatation may be secondary to postcholecystectomy changes. Please correlate clinically or further evaluation with MRCP. Signed: Marzena Kaplan MDReport Verified Date/Time: 07/11/2019 19:39:14 Reading Location: [facility] B1 [id number] Consult Reading Room EN, URINE 2019-07-11 12:45:00 Test Item Value Reference Range Comments TEST URINE (BEAKER) (test cxru=368) Negative COMPREHENSIVE METABOLIC [id number] 05:16:00 Test Item Value Reference Range Comments TOTAL PROTEIN (BEAKER) 6.8 gm/dL 6.0-8.5 (test pkpb=076) ALBUMIN (BEAKER) (test 3.6 g/dL 3.5-5.0 qwdx=6948) ALKALINE PHOSPHATASE 315 U/L 30-115 (BEAKER) (test gvuz=622) BILIRUBIN TOTAL (BEAKER) 1.0 mg/dL 0.1-1.2 (test lnpq=494) SODIUM (BEAKER) (test 137 meq/L 135-148 dtyo=719) POTASSIUM (BEAKER) (test 4.0 meq/L 3.6-5.5 eplz=030) CHLORIDE (BEAKER) (test 105 meq/L 98-106 dheo=756) CO2 (BEAKER) (test 21 meq/L 20-29 dwvi=503) BLOOD UREA NITROGEN 5 mg/dL 10-26 (BEAKER) (test odmi=022) CREATININE (BEAKER) (test 0.72 mg/dL 0.50-1.20 hujm=736) GLUCOSE RANDOM (BEAKER) 109 mg/dL 70-110 (test wbyz=681) CALCIUM (BEAKER) (test 9.6 mg/dL 8.5-10.5 toqx=888) AST (SGOT) (BEAKER) (test 172 U/L 5-40 lkgf=798) ALT (SGPT) (BEAKER) (test 84 U/L 5-50 qkxv=688) EGFR (BEAKER) (test 94 mL/min/1.73 sq m ESTIMATED GFR IS NOT zgku=2398) ACCURATE CREATININE CLEARANCE IN PREDICTING GLOMERULAR FILTRATION RATE. ESTIMATED GFR IS NOT APPLICABLE FOR DIALYSIS PATIENTS. Seo Assistant ID - [id number] 05:05:00 Test Item Value Reference Range Comments PROTIME (BEAKER) (test cebd=994) 11.6 sec 9.3-12.0 INR (BEAKER) (test dlau=925) 1.1 <=5.9 RECOMMENDED COUMADIN/WARFARIN INR THERAPY RANGESSTANDARD DOSE: 2.0 - 3.0 Includes: PROPHYLAXIS forvenous thrombosis, systemic embolization; TREATMENT for venous thrombosis and/or pulmonary embolus.HIGH RISK: Target INR is 2.5-3.5 for patients with mechanical heart valves.Final Information (Auto Output)Final Information (Auto Output)CBC W/PLT COUNT & AUTO [id number] 04:48 :00 Test Item Value Reference Range Comments WHITE BLOOD CELL COUNT (BEAKER) (test fnee=008) 4.0 K/ L 4.0-10.0 RED BLOOD CELL COUNT (BEAKER) (test durd=349) 4.36 M/ L 4.00-5.00 HEMOGLOBIN (BEAKER) (test upnc=410) 12.0 GM/DL 12.0-15.5 HEMATOCRIT (BEAKER) (test yhxb=199) 39.0 % 36.0-46.0 MEAN CORPUSCULAR VOLUME (BEAKER) (test bjqf=865) 89.4 fL 82.0-99.0 MEAN CORPUSCULAR HEMOGLOBIN (BEAKER) (test 27.5 pg 27.0-33.0 wyfa=276) MEAN CORPUSCULAR HEMOGLOBIN CONC (BEAKER) (test 30.8 GM/DL 32.0-36.0 mmig=125) RED CELL DISTRIBUTION WIDTH (BEAKER) (test 16.1 % 12.0-15.0 nljn=083) PLATELET COUNT (BEAKER) (test ggnn=791) 110 K/CU MM 150-430 MEAN PLATELET VOLUME (BEAKER) (test ijhe=994) 10.3 fL 6.0-11.5 NUCLEATED RED BLOOD CELLS (BEAKER) (test 0 /100 WBC 0-0 aoov=501) NEUTROPHILS RELATIVE PERCENT (BEAKER) (test 85 % xkml=536) LYMPHOCYTES RELATIVE PERCENT (BEAKER) (test 12 % sqgr=003) MONOCYTES RELATIVE PERCENT (BEAKER) (test 2 % kmir=919) EOSINOPHILS RELATIVE PERCENT (BEAKER) (test 0 % oaff=197) BASOPHILS RELATIVE PERCENT (BEAKER) (test 0 % gjwz=909) NEUTROPHILS ABSOLUTE COUNT (BEAKER) (test 3.37 K/ L 1.80-8.00 ivlz=055) LYMPHOCYTES ABSOLUTE COUNT (BEAKER) (test 0.46 K/ L 1.48-4.50 tfup=806) MONOCYTES ABSOLUTE COUNT (BEAKER) (test 0.09 K/ L 0.00-1.30 hmvn=484) EOSINOPHILS ABSOLUTE COUNT (BEAKER) (test 0.01 K/ L 0.00-0.50 shlf=417) BASOPHILS ABSOLUTE COUNT (BEAKER) (test 0.01 K/ L 0.00-0.20 akvx=982) IMMATURE GRANULOCYTES-RELATIVE PERCENT (BEAKER) 1 % 0-0 (test aatc=2529) HEMOGLOBIN AND [id number] 15:40:00 Test Item Value Reference Range Comments HEMOGLOBIN (BEAKER) (test cpxu=666) 11.8 GM/DL 12.0-15.5 HEMATOCRIT (BEAKER) (test uiex=568) 38.5 % 36.0-46.0 COMPREHENSIVE METABOLIC [id number] 06:22:00 Test Item Value Reference Range Comments TOTAL PROTEIN (BEAKER) 5.4 gm/dL 6.0-8.5 (test bzej=668) ALBUMIN (BEAKER) (test 3.1 g/dL 3.5-5.0 dqff=8718) ALKALINE PHOSPHATASE 287 U/L 30-115 (BEAKER) (test frre=264) BILIRUBIN TOTAL (BEAKER) 1.1 mg/dL 0.1-1.2 (test pgkn=729) SODIUM (BEAKER) (test 135 meq/L 135-148 nhat=547) POTASSIUM (BEAKER) (test 3.6 meq/L 3.6-5.5 ojcn=016) CHLORIDE (BEAKER) (test 106 meq/L 98-106 wczr=990) CO2 (BEAKER) (test 21 meq/L 20-29 fcli=213) BLOOD UREA NITROGEN 3 mg/dL 10-26 (BEAKER) (test gvjn=098) CREATININE (BEAKER) (test 0.67 mg/dL 0.50-1.20 ulci=513) GLUCOSE RANDOM (BEAKER) 89 mg/dL 70-110 (test afgn=630) CALCIUM (BEAKER) (test 8.2 mg/dL 8.5-10.5 ylcl=558) AST (SGOT) (BEAKER) (test 215 U/L 5-40 ougy=818) ALT (SGPT) (BEAKER) (test 78 U/L 5-50 sbpg=254) EGFR (BEAKER) (test 103 mL/min/1.73 sq ESTIMATED GFR IS NOT vjgm=4008) m ACCURATE CREATININE CLEARANCE IN PREDICTING GLOMERULAR FILTRATION RATE. ESTIMATED GFR IS NOT APPLICABLE FOR DIALYSIS PATIENTS. Seo Assistant ID - [id number] W/PLT COUNT & AUTO [id number] 05:51:00 Test Item Value Reference Range Comments WHITE BLOOD CELL COUNT (BEAKER) (test hcpf=667) 3.5 K/ L 4.0-10.0 RED BLOOD CELL COUNT (BEAKER) (test kwwb=154) 3.81 M/ L 4.00-5.00 HEMOGLOBIN (BEAKER) (test uutm=492) 10.6 GM/DL 12.0-15.5 HEMATOCRIT (BEAKER) (test qdpw=633) 35.1 % 36.0-46.0 MEAN CORPUSCULAR VOLUME (BEAKER) (test whsi=563) 92.1 fL 82.0-99.0 MEAN CORPUSCULAR HEMOGLOBIN (BEAKER) (test 27.8 pg 27.0-33.0 nqxr=070) MEAN CORPUSCULAR HEMOGLOBIN CONC (BEAKER) (test 30.2 GM/DL 32.0-36.0 cyom=713) RED CELL DISTRIBUTION WIDTH (BEAKER) (test 16.5 % 12.0-15.0 evjt=029) PLATELET COUNT (BEAKER) (test dabz=733) 92 K/CU MM 150-430 MEAN PLATELET VOLUME (BEAKER) (test dcza=483) 11.2 fL 6.0-11.5 NUCLEATED RED BLOOD CELLS (BEAKER) (test 0 /100 WBC 0-0 kncb=406) NEUTROPHILS RELATIVE PERCENT (BEAKER) (test 61 % drxn=754) LYMPHOCYTES RELATIVE PERCENT (BEAKER) (test 26 % zlcl=338) MONOCYTES RELATIVE PERCENT (BEAKER) (test 8 % bgnj=843) EOSINOPHILS RELATIVE PERCENT (BEAKER) (test 5 % nmbf=684) BASOPHILS RELATIVE PERCENT (BEAKER) (test 0 % bdoz=180) NEUTROPHILS ABSOLUTE COUNT (BEAKER) (test 2.16 K/ L 1.80-8.00 ymix=138) LYMPHOCYTES ABSOLUTE COUNT (BEAKER) (test 0.90 K/ L 1.48-4.50 taak=383) MONOCYTES ABSOLUTE COUNT (BEAKER) (test rcor=886) 0.28 K/ L 0.00-1.30 EOSINOPHILS ABSOLUTE COUNT (BEAKER) (test 0.16 K/ L 0.00-0.50 ebnv=541) BASOPHILS ABSOLUTE COUNT (BEAKER) (test vpjj=084) 0.01 K/ L 0.00-0.20 IMMATURE GRANULOCYTES-RELATIVE PERCENT (BEAKER) 0 % 0-0 (test ipqm=5602) CBC W/AUTO [id number] 06:50:00 Test Item Value Reference Range Comments WHITE BLOOD CELL (test code=WBC) 3.5 K/MM3 3.8-9.8 RED BLOOD CELL (test code=RBC) 3.52 M/MM3 3.58-4.97 HEMOGLOBIN (test code=HGB) 10.4 G/DL 11.2-14.9 HEMATOCRIT (test code=HCT) 32.9 % 33.2-43.5 MEAN CELL VOLUME (test code=MCV) 94 fL 80.7-99.1 MEAN CELL HGB (test code=MCH) 29.5 pg 27.0-34.1 MEAN CELL HGB CONCETRATION (test code=MCHC) 31.6 % 32.2-35.7 RED CELL DISTRIBUTION WIDTH (test code=RDW) 18.9 % 12.1-15.2 PLATELET COUNT (test code=PLT) 81 K/MM3 129-368 MEAN PLATELET VOLUME (test code=MPV) 10.1 fl 7.4-10.4 NEUTROPHIL % (test code=NT%) 71.0 % 43-75 IMMATURE GRANULOCYTE % (test code=IG%) 1.2 % 0.0-2.0 LYMPHOCYTE % (test code=LY%) 17.1 % 14-44 MONOCYTE % (test code=MO%) 6.6 % 4-13 EOSINOPHIL % (test code=EO%) 3.5 % 0-6 BASOPHIL % (test code=BA%) 0.6 % 0-2 NUCLEATED RBC % (test code=NRBC%) 0.0 % 0-1.0 NEUTROPHIL # (test code=NT#) 2.46 K/mm3 2.0-7.6 IMMATURE GRANULOCYTE # (test code=IG#) 0.04 x10 3/uL 0-0.03 LYMPHOCYTE # (test code=LY#) 0.59 K/mm3 1.0-3.8 MONOCYTE # (test code=MO#) 0.23 K/mm3 0.1-0.8 EOSINOPHIL # (test code=EO#) 0.12 K/mm3 0.0-0.2 BASOPHIL # (test code=BA#) 0.02 K/mm3 0.0-0.2 NUCLEATED RBC # (test code=NRBC#) 0.00 K/mm3 0.0-0.1 COMPREHENSIVE METABOLIC [id number] 06:49:00 Test Item Value Reference Range Comments SODIUM (test code=NA) 135 MMOL/L 137-145 POTASSIUM (test code=K) 3.8 MMOL/L 3.5-5.1 CHLORIDE (test code=CL) 105 MMOL/L 98-107 CARBON DIOXIDE (test code=CO2) 27 MMOL/L 22-30 ANION GAP (test code=GAP) 7 MMOL/L 14-24 GLUCOSE (test code=GLU) 93 MG/DL 74-106 BLOOD UREA NITROGEN (test 8 MG/DL 7-17 code=BUN) GLOMERULAR FILTRATION RATE > 60 Reporting units: (test code=GFR) ml/min/1.73 m2 (Modified MDRD Formula)Reference Range: > or=60 ml/min/1.73 m2 CREATININE (test code=CREAT) 0.60 MG/DL 0.52-1.04 TOTAL PROTEIN (test code=PROT) 5.7 G/DL 6.3-8.2 ALBUMIN (test code=ALB) 2.9 G/DL 3.5-5.0 CALCIUM (test code=CA) 8.7 MG/DL 8.4-10.2 BILIRUBIN TOTAL (test 1.6 MG/DL 0.2-1.3 code=BILT) SGOT/AST (test code=AST) 340 UNITS/L 14-36 SGPT/ALT (test code=ALT) 118 UNITS/L 9-52 ALKALINE PHOSPHATASE (test 415 UNITS/L 38-126 code=ALKP) [id number] 06:49:00 Test Item Value Reference Range Comments MAGNESIUM (test code=MAG) 2.0 MG/DL 1.6-2.3 - MRI BRAIN W/O [id number] 18:40:00 Patient Name: LAMINE DOSHI Unit No: [id number] EXAMS: CPT CODE: [id number] MRI BRAIN W/O CONTRAST [id number] Location: T 18 MRI brain, 01/25/19 COMPARISON EXAM : Head CT exam of 01/24/19 TECHNIQUE: MRI examination of the brain without contrastdone performed on a high field magnet. Multiplanar and multisequence technique performed. CLINICAL HISTORY: Recurrent seizure activity Comparison exam: head CT exam FINDINGS: No positive mass- effect, midline shift, extra-axial collection, no intracranial hemorrhage seen. No acute territorial infarction is seen.There is no intra or extra-axial masses. Assessment of skull base unremarkable. Normal signal void in the basilar artery and carotid siphons are seen. Ventricles and sulci are age appropriate. Do not see any areas of focal encephalomalacia. No definite MRI findings for mesial temporal sclerosis. No vascular abnormality. No areas of focal cortical dysplasia or heterotopic amin matter formation. No definite vascular abnormality is seen. DWI was performed and is unremarkable. No abnormal restriction is seen.Assessment of the white matter is unremarkable. No sinus disease is seen IMPRESSION: Normal MRI examination of the brain without contrast without etiology to account for seizure activity identified at 1840 Reported and signed by: Claudia Ayala MD [facility] NAME: LAMINE DOSHI [id number] PHYS: [place] [address] : 1990 AGE: 29 SEX: F LOC: Z.621 B PHONE #: [phone] EXAM DATE: 01/25/2019 STATUS: ADM IN FAX #: [phone] RADIOLOGY NO: PAGE 1 Signed Report ( CONTINUED) Patient Name: LAMINE DOSHI Unit No: [id number] EXAMS: CPT CODE: [id number] MRI BRAIN W/O CONTRAST [id number] <Continued> CC: Alli Mars MD; Cayla Sevilla MD Technologist: JHON MAYS RT(R)(MR)(CT) Transcrpt Date/Tm/Trnsp: 01/25/2019 (1839) [email or web address] Orig Print D/T: S: 01/25/2019 (184) [facility] NAME: LAMINE DOSHI [id number] PHYS: [place] [address] : 1990 AGE: 29 SEX: F LOC: Z.621 B PHONE #: [phone] EXAM DATE: 01/25/2019 STATUS: ADM IN FAX #: [phone] RADIOLOGY NO: PAGE 2 Signed ReportCOMPREHENSIVE METABOLIC [id number] 18:39:00 Test Item Value Reference Range Comments SODIUM (test code=NA) 133 MMOL/L 137-145 POTASSIUM (test code=K) 4.0 MMOL/L 3.5-5.1 CHLORIDE (test code=CL) 103 MMOL/L 98-107 CARBON DIOXIDE (test code=CO2) 26 MMOL/L 22-30 ANION GAP (test code=GAP) 8 MMOL/L 14-24 GLUCOSE (test code=GLU) 168 MG/DL 74-106 BLOOD UREA NITROGEN (test 6 MG/DL 7-17 code=BUN) GLOMERULAR FILTRATION RATE > 60 Reporting units: (test code=GFR) ml/min/1.73 m2 (Modified MDRD Formula)Reference Range: > or=60 ml/min/1.73 m2 CREATININE (test code=CREAT) 0.60 MG/DL 0.52-1.04 TOTAL PROTEIN (test code=PROT) 6.1 G/DL 6.3-8.2 ALBUMIN (test code=ALB) 3.2 G/DL 3.5-5.0 CALCIUM (test code=CA) 8.6 MG/DL 8.4-10.2 BILIRUBIN TOTAL (test 2.0 MG/DL 0.2-1.3 code=BILT) SGOT/AST (test code=AST) 590 UNITS/L 14-36 SGPT/ALT (test code=ALT) 151 UNITS/L 9-52 ALKALINE PHOSPHATASE (test 451 UNITS/L 38-126 code=ALKP) [id number] 18:39:00 Test Item Value Reference Range Comments ACETAMINOPHEN (test code=ACET) < 10.0 MCG/ML 10-30 [id number] 18:39:00 Test Item Value Reference Range Comments SALICYLATE (test code=DAISY) < 1.0 MG/DL <2.0 - XR CHEST [id number] 14:38:00 Patient Name: LAMINE DOSHI Unit No: [id number] EXAMS: CPT CODE: [id number] XR CHEST 1V 01566 Site ID: [id number] HISTORY: Pneumonia FINDINGS: The lungs are clear and normally expanded. The heart and pulmonary vasculatureis normal. Osseous structures are unremarkable. IMPRESSION: Negative chest X-ray. * * at 1438 Reported and signed by: Esa Calderon MD CC : Alli Mars MD; Cayla Sevilla MD Technologist: Steven Hanson RT(R) Transcrpt Date/Tm/Trnsp: 01/25/2019 ( 1438) [email or web address] Orig Print D/T: S: 01/25/2019 (3358) [facility] NAME: LAMINE DOSHI [id number] PHYS: [email or web address] - [place] [address] : 1990 AGE: 29 SEX: F LOC: Z.621 B PHONE #: [phone] EXAM DATE: 01/25/2019 STATUS:ADM IN FAX #: [phone] RADIOLOGY NO: PAGE 1 Signed ReportCOMPREHENSIVE METABOLIC [id number] 06:28:00 Test Item Value Reference Range Comments SODIUM (test code=NA) 131 MMOL/L 137-145 POTASSIUM (test code=K) 3.7 MMOL/L 3.5-5.1 CHLORIDE (test code=CL) 101 MMOL/L 98-107 CARBON DIOXIDE (test code=CO2) 26 MMOL/L 22-30 ANION GAP (test code=GAP) 8 MMOL/L 14-24 GLUCOSE (test code=GLU) 86 MG/DL 74-106 BLOOD UREA NITROGEN (test 9 MG/DL 7-17 code=BUN) GLOMERULAR FILTRATION RATE > 60 Reporting units: (test code=GFR) ml/min/1.73 m2 (Modified MDRD Formula)Reference Range: > or=60 ml/min/1.73 m2 CREATININE (test code=CREAT) 0.50 MG/DL 0.52-1.04 TOTAL PROTEIN (test code=PROT) 5.7 G/DL 6.3-8.2 ALBUMIN (test code=ALB) 2.9 G/DL 3.5-5.0 CALCIUM (test code=CA) 8.6 MG/DL 8.4-10.2 BILIRUBIN TOTAL (test 2.8 MG/DL 0.2-1.3 code=BILT) SGOT/AST (test code=AST) 763 UNITS/L 14-36 SGPT/ALT (test code=ALT) 160 UNITS/L 9-52 ALKALINE PHOSPHATASE (test 456 UNITS/L 38-126 code=ALKP) LIPID PROFILE (CORONARY RISK)2019-01-25 06:28:00 Test Item Value Reference Range Comments TRIGLYCERIDES (test code=TRIG) 129 MG/DL TRIGLYCERIDES REFERENCE RANGE:Normal: <150 mg/dLBorderline High: 150-199 mg/dLHigh: 200-499 mg/dLVery High: >=500 mg/dL CHOLESTEROL (test code=CHOL) 171 MG/DL <200 HDL CHOLESTEROL (test 77 MG/DL 40-59 code=HDL) LIPOPROTEIN LDL (test 68 MG/DL 0-99 code=LDL) OPTIMAL.........<100 mg/dLNEAR OPTIMAL/ABOVE OPTIMAL.........100-129 mg/dL BORDERLINE HIGH.........130-159 mg/dL HIGH.........160-189 mg/dL VERY HIGH.........>/=190 mg/dL [id number] 06:28:00 Test Item Value Reference Range Comments PHOSPHOROUS (test code=PHOS) 2.9 MG/DL 2.5-4.5 [id number] 06:28:00 Test Item Value Reference Range Comments MAGNESIUM (test code=MAG) 1.4 MG/DL 1.6-2.3 THYROID STIMULATING [id number] 06:28:00 Test Item Value Reference Range Comments THYROID STIMULATING HORMONE 6.070 MIU/L 0.465-4.68 Please be aware that bias (test code=TSH) results for TSH may occur forpatient who are taking Biotin supplements. COMPREHENSIVE METABOLIC [id number] 06:10:00 Test Item Value Reference Range Comments SODIUM (test code=NA) 131 MMOL/L 137-145 POTASSIUM (test code=K) 3.7 MMOL/L 3.5-5.1 CHLORIDE (test code=CL) 101 MMOL/L 98-107 CARBON DIOXIDE (test code=CO2) 26 MMOL/L 22-30 ANION GAP (test code=GAP) 8 MMOL/L 14-24 GLUCOSE (test code=GLU) 86 MG/DL 74-106 BLOOD UREA NITROGEN (test 9 MG/DL 7-17 code=BUN) GLOMERULAR FILTRATION RATE > 60 Reporting units: (test code=GFR) ml/min/1.73 m2 (Modified MDRD Formula)Reference Range: > or=60 ml/min/1.73 m2 CREATININE (test code=CREAT) 0.50 MG/DL 0.52-1.04 TOTAL PROTEIN (test code=PROT) 5.7 G/DL 6.3-8.2 ALBUMIN (test code=ALB) 2.9 G/DL 3.5-5.0 CALCIUM (test code=CA) 8.6 MG/DL 8.4-10.2 BILIRUBIN TOTAL (test 2.8 MG/DL 0.2-1.3 code=BILT) SGOT/AST (test code=AST) 763 UNITS/L 14-36 SGPT/ALT (test code=ALT) 160 UNITS/L 9-52 ALKALINE PHOSPHATASE (test 456 UNITS/L 38-126 code=ALKP) LIPID PROFILE (CORONARY RISK)2019-01-25 06:10:00 Test Item Value Reference Range Comments TRIGLYCERIDES (test code=TRIG) 129 MG/DL TRIGLYCERIDES REFERENCE RANGE:Normal: <150 mg/dLBorderline High: 150-199 mg/dLHigh: 200-499 mg/dLVery High: >=500 mg/dL CHOLESTEROL (test code=CHOL) 171 MG/DL <200 HDL CHOLESTEROL (test 77 MG/DL 40-59 code=HDL) LIPOPROTEIN LDL (test 68 MG/DL 0-99 code=LDL) OPTIMAL.........<100 mg/dLNEAR OPTIMAL/ABOVE OPTIMAL.........100-129 mg/dL BORDERLINE HIGH.........130-159 mg/dL HIGH.........160-189 mg/dL VERY HIGH.........>/=190 mg/dL [id number] 06:10:00 Test Item Value Reference Range Comments PHOSPHOROUS (test code=PHOS) 2.9 MG/DL 2.5-4.5 [id number] 06:10:00 Test Item Value Reference Range Comments MAGNESIUM (test code=MAG) 1.4 MG/DL 1.6-2.3 THYROID STIMULATING [id number] 06:10:00 Test Item Value Reference Range Comments THYROID STIMULATING HORMONE (test code=TSH) MIU/L 0.465-4.68 COMPREHENSIVE METABOLIC [id number] 06:08:00 Test Item Value Reference Range Comments SODIUM (test code=NA) 131 MMOL/L 137-145 POTASSIUM (test code=K) 3.7 MMOL/L 3.5-5.1 CHLORIDE (test code=CL) 101 MMOL/L 98-107 CARBON DIOXIDE (test code=CO2) 26 MMOL/L 22-30 ANION GAP (test code=GAP) 8 MMOL/L 14-24 GLUCOSE (test code=GLU) 86 MG/DL 74-106 BLOOD UREA NITROGEN (test 9 MG/DL 7-17 code=BUN) GLOMERULAR FILTRATION RATE > 60 Reporting units: (test code=GFR) ml/min/1.73 m2 (Modified MDRD Formula)Reference Range: > or=60 ml/min/1.73 m2 CREATININE (test code=CREAT) 0.50 MG/DL 0.52-1.04 TOTAL PROTEIN (test code=PROT) 5.7 G/DL 6.3-8.2 ALBUMIN (test code=ALB) 2.9 G/DL 3.5-5.0 CALCIUM (test code=CA) 8.6 MG/DL 8.4-10.2 BILIRUBIN TOTAL (test 2.8 MG/DL 0.2-1.3 code=BILT) SGOT/AST (test code=AST) 763 UNITS/L 14-36 SGPT/ALT (test code=ALT) 160 UNITS/L 9-52 ALKALINE PHOSPHATASE (test 456 UNITS/L 38-126 code=ALKP) LIPID PROFILE (CORONARY RISK)2019-01-25 06:08:00 Test Item Value Reference Range Comments TRIGLYCERIDES (test code=TRIG) 129 MG/DL TRIGLYCERIDES REFERENCE RANGE:Normal: <150 mg/dLBorderline High: 150-199 mg/dLHigh: 200-499 mg/dLVery High: >=500 mg/dL CHOLESTEROL (test code=CHOL) 171 MG/DL <200 HDL CHOLESTEROL (test 77 MG/DL 40-59 code=HDL) LIPOPROTEIN LDL (test MG/DL 0-99 code=LDL) [id number] 06:08:00 Test Item Value Reference Range Comments PHOSPHOROUS (test code=PHOS) 2.9 MG/DL 2.5-4.5 [id number] 06:08:00 Test Item Value Reference Range Comments MAGNESIUM (test code=MAG) 1.4 MG/DL 1.6-2.3 THYROID STIMULATING [id number] 06:08:00 Test Item Value Reference Range Comments THYROID STIMULATING HORMONE (test code=TSH) MIU/L 0.465-4.68 GLYCOSYLATED HEMOGLOBIN [id number] 06:05:00 Test Item Value Reference Range Comments GLYCOSYLATED HEMOGLOBIN 5.3 % 4.8-5.9 Any condition that shortens (HA1C) (test code=GLYHGB) erythocyte survival or decreasesmean erythrocyte age (e.g., recovery from acute blood loss,hemolytic anemia) will falsely lower HGBA1c resultsregardless of the method used. HGBA1c results from patientswith HbSS, HbCC, and HbSc must be interpreted with cautiongiven the pathological processes, including anemia,increased red cell turnover, transfusion requirements, thatadversely impact HGBA1c as a marker of long-term glycemiccontrol. Alternative forms of testing such as fructosamineshould be considered for these patients. MEAN BLOOD GLUCOSE (test 105 MG/DL 70-110 code=MBG) COMPREHENSIVE METABOLIC [id number] 06:04:00 Test Item Value Reference Range Comments SODIUM (test code=NA) 131 MMOL/L 137-145 POTASSIUM (test code=K) 3.7 MMOL/L 3.5-5.1 CHLORIDE (test code=CL) 101 MMOL/L 98-107 CARBON DIOXIDE (test code=CO2) 26 MMOL/L 22-30 ANION GAP (test code=GAP) 8 MMOL/L 14-24 GLUCOSE (test code=GLU) 86 MG/DL 74-106 BLOOD UREA NITROGEN (test 9 MG/DL 7-17 code=BUN) GLOMERULAR FILTRATION RATE > 60 Reporting units: (test code=GFR) ml/min/1.73 m2 (Modified MDRD Formula)Reference Range: > or=60 ml/min/1.73 m2 CREATININE (test code=CREAT) 0.50 MG/DL 0.52-1.04 TOTAL PROTEIN (test code=PROT) 5.7 G/DL 6.3-8.2 ALBUMIN (test code=ALB) 2.9 G/DL 3.5-5.0 CALCIUM (test code=CA) 8.6 MG/DL 8.4-10.2 BILIRUBIN TOTAL (test 2.8 MG/DL 0.2-1.3 code=BILT) SGOT/AST (test code=AST) UNITS/L 14-36 SGPT/ALT (test code=ALT) 160 UNITS/L 9-52 ALKALINE PHOSPHATASE (test 456 UNITS/L 38-126 code=ALKP) LIPID PROFILE (CORONARY RISK)2019-01-25 06:04:00 Test Item Value Reference Range Comments TRIGLYCERIDES (test code=TRIG) 129 MG/DL TRIGLYCERIDES REFERENCE RANGE:Normal: <150 mg/dLBorderline High: 150-199 mg/dLHigh: 200-499 mg/dLVery High: >=500 mg/dL CHOLESTEROL (test code=CHOL) 171 MG/DL <200 HDL CHOLESTEROL (test 77 MG/DL 40-59 code=HDL) LIPOPROTEIN LDL (test MG/DL 0-99 code=LDL) [id number] 06:04:00 Test Item Value Reference Range Comments PHOSPHOROUS (test code=PHOS) 2.9 MG/DL 2.5-4.5 [id number] 06:04:00 Test Item Value Reference Range Comments MAGNESIUM (test code=MAG) 1.4 MG/DL 1.6-2.3 THYROID STIMULATING [id number] 06:04:00 Test Item Value Reference Range Comments THYROID STIMULATING HORMONE (test code=TSH) MIU/L 0.465-4.68 LACTIC [id number] 05:46:00 Test Item Value Reference Range Comments LACTIC ACID (test code=LACT) 1.8 MMOL/L 0.7-2.1 CBC W/AUTO [id number] 05:37:00 Test Item Value Reference Range Comments WHITE BLOOD CELL (test code=WBC) 4.3 K/MM3 3.8-9.8 RED BLOOD CELL (test code=RBC) 3.72 M/MM3 3.58-4.97 HEMOGLOBIN (test code=HGB) 10.9 G/DL 11.2-14.9 HEMATOCRIT (test code=HCT) 34.2 % 33.2-43.5 MEAN CELL VOLUME (test code=MCV) 92 fL 80.7-99.1 MEAN CELL HGB (test code=MCH) 29.3 pg 27.0-34.1 MEAN CELL HGB CONCETRATION (test code=MCHC) 31.9 % 32.2-35.7 RED CELL DISTRIBUTION WIDTH (test code=RDW) 19.0 % 12.1-15.2 PLATELET COUNT (test code=PLT) 71 K/MM3 129-368 MEAN PLATELET VOLUME (test code=MPV) 8.9 fl 7.4-10.4 NEUTROPHIL % (test code=NT%) 78.7 % 43-75 IMMATURE GRANULOCYTE % (test code=IG%) 0.7 % 0.0-2.0 LYMPHOCYTE % (test code=LY%) 10.3 % 14-44 MONOCYTE % (test code=MO%) 7.5 % 4-13 EOSINOPHIL % (test code=EO%) 2.3 % 0-6 BASOPHIL % (test code=BA%) 0.5 % 0-2 NUCLEATED RBC % (test code=NRBC%) 0.0 % 0-1.0 NEUTROPHIL # (test code=NT#) 3.36 K/mm3 2.0-7.6 IMMATURE GRANULOCYTE # (test code=IG#) 0.03 x10 3/uL 0-0.03 LYMPHOCYTE # (test code=LY#) 0.44 K/mm3 1.0-3.8 MONOCYTE # (test code=MO#) 0.32 K/mm3 0.1-0.8 EOSINOPHIL # (test code=EO#) 0.10 K/mm3 0.0-0.2 BASOPHIL # (test code=BA#) 0.02 K/mm3 0.0-0.2 NUCLEATED RBC # (test code=NRBC#) 0.00 K/mm3 0.0-0.1 URINALYSIS [id number] 04:29:00 Test Item Value Reference Range Comments UA COLOR (test code=COLU) YELLOW YELLOW UA APPEARANCE (test code=APPU) SLIGHT CLOUDY CLEAR UA GLUCOSE DIPSTICK (test NORMAL MG/DL NORMAL code=DGLUU) UA BILIRUBIN DIPSTICK (test NEGATIVE MG/DL NEGATIVE code=BILU) UA KETONE DIPSTICK (test NEGATIVE MG/DL NEGATIVE code=KETU) UA SPECIFIC GRAVITY (test 1.010 1.003-1.030 code=SGU) UA BLOOD DIPSTICK (test code=SAEID) 250 Jeferson/mm3 NEGATIVE UA PH DIPSTICK (test code=DARRELL) 8.0 5.0-9.0 UA PROTEIN DIPSTICK (test 15 MG/DL NEGATIVE code=PROU) UA UROBILINIOGEN DIPSTICK (test 4 MG/DL NORMAL code=URO) UA NITRITE DIPSTICK (test POSITIVE NEGATIVE code=TIMMY) UA LEUKOCYTE ESTERASE DIPSTICK 500 /mm3 NEGATIVE (test code=LEUU) UA CULTURE NEEDED? (test YES,WBC>10 & EPI<25 Culture Chk code=UACULT) Criteria SOURCE OF URINE: CLEAN CATCHUA [id number] 04:29:00 Test Item Value Reference Range Comments UA RBC (test code=RBCU) 3-5 RBC/HPF 0-3 UA WBC (test code=XWBCU) 10-20 WBC/HPF 0-5 UA EPITHELIAL CELLS (test code=EPIU) MODERATE EPI/HPF FEW UA BACTERIA (test code=XBACU) MANY NONE SOURCE OF URINE: CLEAN CATCHURINALYSIS [id number] 03:56:00 Test Item Value Reference Range Comments UA COLOR (test code=COLU) YELLOW YELLOW UA APPEARANCE (test code=APPU) SLIGHT CLOUDY CLEAR UA GLUCOSE DIPSTICK (test code=DGLUU) NORMAL MG/DL NORMAL UA BILIRUBIN DIPSTICK (test code=BILU) NEGATIVE MG/DL NEGATIVE UA KETONE DIPSTICK (test code=KETU) NEGATIVE MG/DL NEGATIVE UA SPECIFIC GRAVITY (test code=SGU) 1.010 1.003-1.030 UA BLOOD DIPSTICK (test code=SAEID) 250 Jeferson/mm3 NEGATIVE UA PH DIPSTICK (test code=DARRELL) 8.0 5.0-9.0 UA PROTEIN DIPSTICK (test code=PROU) 15 MG/DL NEGATIVE UA UROBILINIOGEN DIPSTICK (test code=URO) 4 MG/DL NORMAL UA NITRITE DIPSTICK (test code=TIMMY) POSITIVE NEGATIVE UA LEUKOCYTE ESTERASE DIPSTICK (test 500 /mm3 NEGATIVE code=LEUU) UA CULTURE NEEDED? (test code=UACULT) Criteria Culture Chk SOURCE OF URINE: CLEAN CATCHUA [id number] 03:56:00 Test Item Value Reference Range Comments UA RBC (test code=RBCU) RBC/HPF 0-3 UA WBC (test code=XWBCU) WBC/HPF 0-5 UA EPITHELIAL CELLS (test code=EPIU) EPI/HPF FEW UA BACTERIA (test code=XBACU) NONE SOURCE OF URINE: CLEAN CATCHDRUGS OF ABUSE SCREEN [id number] 03:56:00 Test Item Value Reference Range Comments UR COCAINE (test code=COCAU) NEGATIVE NEGATIVE Cut off Value: 300 ng/mL UR CANNABINOIDS (THC) (test NEGATIVE NEGATIVE Cut off Value: 50 ng/mL code=CANU) UR AMPHETAMINE (test NEGATIVE NEGATIVE Cut off Value: 1000 ng/mL code=AMPHU) UR BARBITURATE QUAL (test POSITIVE NEGATIVE This is a Screening test and code=BARBQLU) the Results are to be used for medical purposes only (No confirmation for Positive results)Cut off Value: 200 ng/mL UR BENZODIAZEPINE (test NEGATIVE NEGATIVE Cut off Value: 200 ng/mL code=BENZU) UR OPIATES QUAL (test POSITIVE NEGATIVE Cut off Value: 300 ng/mL code=OPIAQLU) UR PHENCYCLIDINE (PCP) (test NEGATIVE NEGATIVE Cut off Value: 25 ng/mL code=PHENCU) URINALYSIS [id number] 03:56:00 Test Item Value Reference Range Comments UA COLOR (test code=COLU) YELLOW YELLOW UA APPEARANCE (test code=APPU) SLIGHT CLOUDY CLEAR UA GLUCOSE DIPSTICK (test code=DGLUU) NORMAL MG/DL NORMAL UA BILIRUBIN DIPSTICK (test code=BILU) NEGATIVE MG/DL NEGATIVE UA KETONE DIPSTICK (test code=KETU) NEGATIVE MG/DL NEGATIVE UA SPECIFIC GRAVITY (test code=SGU) 1.010 1.003-1.030 UA BLOOD DIPSTICK (test code=SAEID) 250 Jeferson/mm3 NEGATIVE UA PH DIPSTICK (test code=DARRELL) 8.0 5.0-9.0 UA PROTEIN DIPSTICK (test code=PROU) 15 MG/DL NEGATIVE UA UROBILINIOGEN DIPSTICK (test code=URO) 4 MG/DL NORMAL UA NITRITE DIPSTICK (test code=TIMMY) POSITIVE NEGATIVE UA LEUKOCYTE ESTERASE DIPSTICK (test 500 /mm3 NEGATIVE code=LEUU) UA CULTURE NEEDED? (test code=UACULT) Criteria Culture Chk SOURCE OF URINE: CLEAN CATCHUA [id number] 03:56:00 Test Item Value Reference Range Comments UA RBC (test code=RBCU) RBC/HPF 0-3 UA WBC (test code=XWBCU) WBC/HPF 0-5 UA EPITHELIAL CELLS (test code=EPIU) EPI/HPF FEW UA BACTERIA (test code=XBACU) NONE SOURCE OF URINE: CLEAN CATCHDRUGS OF ABUSE SCREEN [id number] 03:54:00 Test Item Value Reference Range Comments UR COCAINE (test code=COCAU) NEGATIVE NEGATIVE Cut off Value: 300 ng/mL UR CANNABINOIDS (THC) (test NEGATIVE NEGATIVE Cut off Value: 50 ng/mL code=CANU) UR AMPHETAMINE (test NEGATIVE NEGATIVE Cut off Value: 1000 ng/mL code=AMPHU) UR BARBITURATE QUAL (test POSITIVE NEGATIVE This is a Screening test and code=BARBQLU) the Results are to be used for medical purposes only (No confirmation for Positive results)Cut off Value: 200 ng/mL UR BENZODIAZEPINE (test NEGATIVE NEGATIVE Cut off Value: 200 ng/mL code=BENZU) UR OPIATES QUAL (test NEGATIVE code=OPIAQLU) UR PHENCYCLIDINE (PCP) (test NEGATIVE NEGATIVE Cut off Value: 25 ng/mL code=PHENCU) - CT ABD PELVIS W/O [id number] 00:00:00 Patient Name: LAMINE DOSHI Unit No: [id number] EXAMS: CPT CODE: [id number] CT ABD PELVIS W/O CONT 91335 Dictation location: H37. CT ABDOMEN AND PELVIS WITHOUT IV CONTRAST HISTORY: ELEVATED LIVER ENZYMES COMPARISON: None. TECHNIQUE: Axial CT images of the abdomen and pelvis were obtained with coronal and/or sagittal reformatted views. Automated exposure control, iterative reconstruction technique, and/or adjustment of mA and/or kV according to patient's size was utilized for radiation dose reduction. IV CONTRAST: None. PO CONTRAST: None. Lack of IV contrast limits evaluation of theparenchyma and vasculature. FINDINGS: The visualized lung bases are clear. The heart size is normal. The gallbladder has been removed. Significantly diffuse low attenuation seen throughout the liver suggestive of steatosis. The unenhanced spleen, pancreas and adrenal glands are unremarkable. Both kidneys are similar in size and shape without evidence of hydronephrosis or nephrolithiasis. No ureteral stone. Urinary bladder is contracted. The uterus and ovaries are grossly unremarkable. No free air, free fluid or evidence of a bowel obstruction. Normal appendix. No bowel wall thickening. Gastric bypass. There is a prominent gastric pouch. The aorta is normal in caliber. No abdominal or pelvic adenopathy. Bilateral spondylolysis of L5 without listhesis. Mild lower lumbar spondylosis. IMPRESSION: Significantly low attenuation throughout the liver likely relates to steatosis. Cholecystectomy. Gastric bypass. The appendix. [facility] NAME: LAMINE DOSHI [address] PHYS: [place] [address] : 1990 AGE: 29 SEX: F LOC: Z.621 B PHONE #: [phone] EXAM DATE : 01/24/2019 STATUS: ADM IN FAX #: [phone] RAD #: D /C DT PAGE 1 Signed Report (CONTINUED) Patient Name: LAMINE DOSHI Unit No: [id number] EXAMS: CPT CODE: [id number] CT ABD PELVIS W/O CONT 93578 <Continued&gt ; at 0000 Reported and signed by: Luz Elena Rodriguez MD CC: Alli Mars MD; Cayla Sevilla MD Technologist: Taryn Gandraa RT(R)(CT); Donald Valencia CTDI: DLP: Trnscrpt: 01/25/2019 (0000) [email or web address] [facility]arreal NAME: LAMINE DOSHI [address] PHYS: [place] [address] : 1990 AGE: 29 SEX: F LOC: Z.621 B PHONE #: [phone] EXAM DATE: STATUS: ADM IN FAX #: [phone] RAD #: D/C DT PAGE 2 Signed Report Patient Name: LAMINE DOSHI Unit No: [id number] EXAMS: CPT CODE: [id number] CT ABD PELVIS W/O CONT 93510 <Continued> Orig Print D/T: S: 01/25/2019 (0003 ) [facility] NAME: LAMINE DOSHI [address] [place] [address] PHYS: Alli Ray MD [place] [id number] : 1990 AGE: 29 SEX: F LOC: Z.621 B PHONE # : [phone] EXAM DATE: 01/24/2019 STATUS: ADM IN FAX #: [phone] RAD #: D/C DT PAGE 3 Signed ReportACUTE HEPATITIS [id number] 19:51:00 Test Item Value Reference Range Comments AB HEPATITIS A IGM (test code=HAVMAB) NEGATIVE NONREACTIVE AG HEPATITIS B SURFACE (test code=HBSAG) NEGATIVE NONREACTIVE AB HEPATITIS B CORE IGM (test code=HBCMAB) NEGATIVE NONREACTIVE AB HEPATITIS C (test code=HCVAB) NEGATIVE NONREACTIVE ACUTE HEPATITIS [id number] 19:44:00 Test Item Value Reference Range Comments AB HEPATITIS A IGM (test code=HAVMAB) NEGATIVE NONREACTIVE AG HEPATITIS B SURFACE (test code=HBSAG) NEGATIVE NONREACTIVE AB HEPATITIS B CORE IGM (test code=HBCMAB) NEGATIVE NONREACTIVE AB HEPATITIS C (test code=HCVAB) NONREACTIVE ACUTE HEPATITIS [id number] 19:39:00 Test Item Value Reference Range Comments AB HEPATITIS A IGM (test code=HAVMAB) NONREACTIVE AG HEPATITIS B SURFACE (test code=HBSAG) NEGATIVE NONREACTIVE AB HEPATITIS B CORE IGM (test code=HBCMAB) NEGATIVE NONREACTIVE AB HEPATITIS C (test code=HCVAB) NONREACTIVE ACUTE HEPATITIS [id number] 19:34:00 Test Item Value Reference Range Comments AB HEPATITIS A IGM (test code=HAVMAB) NONREACTIVE AG HEPATITIS B SURFACE (test code=HBSAG) NEGATIVE NONREACTIVE AB HEPATITIS B CORE IGM (test code=HBCMAB) NONREACTIVE AB HEPATITIS C (test code=HCVAB) NONREACTIVE HCG [id number] 18:27:00 Test Item Value Reference Range Comments HCG SERUM (test code=HCG) < 2 IU/L ~~~~~~~~~~~~~~~~~~~~~~~~~~~~~~~~~~~ ~~~~~~~~~~~~~~~~~~~~~~~~~INTERPRETA TION OF [facility]N PERFORMED AT [facility] 0.2-1 WEEKS AFTER CONCEPTION 5-50 1-2 WEEKS AFTER CONCEPTION 50-500 2-3 WEEKS AFTER CONCEPTION 100-5,000 3-4 WEEKS AFTER CONCEPTION 500-10,000 4-5 WEEKS AFTER CONCEPTION 1,000-50,000 5-6 WEEKS AFTER CONCEPTION 10,000-100,0006-8 WEEKS AFTER CONCEPTION 15,000-200,0002-3 MONTHS 10,000-100,000 All values given in eros-International Units per milliliter. SPECIMENS WITH B-HCG LEVELS LESS THAN OR EQUAL TO 5 eros-International Units per milliliter WILL BE REPORTED ZERO OR "NEGATIVE." SPECIMENS WITHB-HCG LEVELS GREATER THAN OR EQUAL TO 25 eros-International Units per milliliter WILL BEREPORTED "POSITIVE." SPECIMENS WITH B-HCG LEVELS GREATERTHAN 5 eros-International Units per milliliter AND LESS THAN 25 eros-International Units per milliliterSHOULD HAVE ADDITIONAL BLOOD SAMPLE DRAWN 48 HOURSLATER AND REPEATED.~~~~~~~~~~~~~~~~~~~~~~~~~~ ~~~~~~~~~~~~~~~~~~~~~~~~~~~~~~~~~~ UNABLE TO DRAW BLOOD, REASON: PROCEDURENOTIFIED PATIENT CARE STAFF: MICHELLE LOPEZ WILL CALL LAB 1445ON 01/24/19 AT 1446 BY Warren SrivastavaPREHENSIVE METABOLIC [id number] 18:13:00 Test Item Value Reference Range Comments SODIUM (test code=NA) 136 MMOL/L 137-145 POTASSIUM (test code=K) 4.3 MMOL/L 3.5-5.1 CHLORIDE (test code=CL) 102 MMOL/L 98-107 CARBON DIOXIDE (test code=CO2) 28 MMOL/L 22-30 ANION GAP (test code=GAP) 10 MMOL/L 14-24 GLUCOSE (test code=GLU) 105 MG/DL 74-106 BLOOD UREA NITROGEN (test 9 MG/DL 7-17 code=BUN) GLOMERULAR FILTRATION RATE > 60 Reporting units: (test code=GFR) ml/min/1.73 m2 (Modified MDRD Formula)Reference Range: > or=60 ml/min/1.73 m2 CREATININE (test code=CREAT) 0.70 MG/DL 0.52-1.04 TOTAL PROTEIN (test code=PROT) 6.2 G/DL 6.3-8.2 ALBUMIN (test code=ALB) 3.3 G/DL 3.5-5.0 CALCIUM (test code=CA) 8.7 MG/DL 8.4-10.2 BILIRUBIN TOTAL (test 1.1 MG/DL 0.2-1.3 code=BILT) SGOT/AST (test code=AST) 628 UNITS/L 14-36 SGPT/ALT (test code=ALT) 159 UNITS/L 9-52 ALKALINE PHOSPHATASE (test 440 UNITS/L 38-126 code=ALKP) UNABLE TO DRAW BLOOD, REASON: PROCEDURENOTIFIED PATIENT CARE STAFF: MICHELLE LOPEZ WILL CALL LABON 01/24/19 AT 1447 BY Aram SrivastavaDILANTIN (PHENYTOIN)2018 18:11:00 Test Item Value Reference Range Comments DILANTIN (PHENYTOIN) (test code=DIL) 12.6 ug/ML 10.0-20.0 Comments to Odd Piece Checker: REPORTED FROM [facility].LACTIC [id number] 18:11:00 Test Item Value Reference Range Comments LACTIC ACID (test code=LACT) 2.2 MMOL/L 0.7-2.1 UNABLE TO DRAW BLOOD, REASON: PROCEDURENOTIFIED PATIENT CARE STAFF: MICHELLE LOPEZ WILL CALL LAB ON 01/24/19 AT 1447 BY Aram [id number] 18:09:00 Test Item Value Reference Range Comments PHOSPHOROUS (test code=PHOS) 3.4 MG/DL 2.5-4.5 UNABLE TO DRAW BLOOD, REASON: PROCEDURENOTIFIED PATIENT CARE STAFF: MICHELLE LOPEZ WILL CALL LABYON 01/24/19 AT 1446 BY Aram [id number] 18: 09:00 Test Item Value Reference Range Comments MAGNESIUM (test code=MAG) 1.7 MG/DL 1.6-2.3 UNABLE TO DRAW BLOOD, REASON: PROCEDURENOTIFIED PATIENT CARE STAFF: MICHELLE LOPEZ WILL CALL LABYON 01/24/19 AT 1446 BY Aram SrivastavaPROTHROMBIN [id number] 18:01:00 Test Item Value Reference Range Comments PROTHROMBIN TIME PATIENT (test 11.3 SECONDS 9.6-11.6 code=PTP) INTERNATIONAL NORMAL RATIO 1.1 0.8-1.1 The INR is to be used only (test code=INR) for monitoring oral anticoagulanttherapy. INDICATION INR VALUE 1. Prophylaxis, deep venous thrombosis, including high risk surgery. 2.0 - 3.0 2. Prophylaxis, deep venous thrombosis, hip surgery, treatment for deep venous thrombosis or pulmonary prevention of systemic embolism in patients with valvular heart disease, atrial fibrillation, tissue heart valve, or acute myocardial infarction. 2.0 - 3.0 3. Mechanical prosthesis heart valves, recurrent systemic embolism. 3.0 - 4.5 UNABLE TO DRAW BLOOD, REASON: PROCEDURENOTIFIED PATIENT CARE STAFF: MICHELLE LOPEZ WILL CALL LABON 01/24/19 AT 1448 BY Sebastián SrivastavaT [id number] 18:01:00 Test Item Value Reference Range Comments PTT ACTIVATED (test code=APTT) 28.6 SECONDS 22.0-33.0 UNABLE TO DRAW BLOOD, REASON: PROCEDURENOTIFIED PATIENT CARE STAFF: MICHELLE LOPEZ WILL CALL LABON 01/24/19 AT 1448 BY Gustavo Srivastava W/AUTO [id number] 17:47:00 Test Item Value Reference Range Comments WHITE BLOOD CELL (test code=WBC) 5.2 K/MM3 3.8-9.8 RED BLOOD CELL (test code=RBC) 3.91 M/MM3 3.58-4.97 HEMOGLOBIN (test code=HGB) 11.4 G/DL 11.2-14.9 HEMATOCRIT (test code=HCT) 36.0 % 33.2-43.5 MEAN CELL VOLUME (test code=MCV) 92 fL 80.7-99.1 MEAN CELL HGB (test code=MCH) 29.2 pg 27.0-34.1 MEAN CELL HGB CONCETRATION (test code=MCHC) 31.7 % 32.2-35.7 RED CELL DISTRIBUTION WIDTH (test code=RDW) 18.9 % 12.1-15.2 PLATELET COUNT (test code=PLT) 109 K/MM3 129-368 MEAN PLATELET VOLUME (test code=MPV) 9.5 fl 7.4-10.4 NEUTROPHIL % (test code=NT%) 73.5 % 43-75 IMMATURE GRANULOCYTE % (test code=IG%) 0.6 % 0.0-2.0 LYMPHOCYTE % (test code=LY%) 15.7 % 14-44 MONOCYTE % (test code=MO%) 7.1 % 4-13 EOSINOPHIL % (test code=EO%) 2.5 % 0-6 BASOPHIL % (test code=BA%) 0.6 % 0-2 NUCLEATED RBC % (test code=NRBC%) 0.0 % 0-1.0 NEUTROPHIL # (test code=NT#) 3.85 K/mm3 2.0-7.6 IMMATURE GRANULOCYTE # (test code=IG#) 0.03 x10 3/uL 0-0.03 LYMPHOCYTE # (test code=LY#) 0.82 K/mm3 1.0-3.8 MONOCYTE # (test code=MO#) 0.37 K/mm3 0.1-0.8 EOSINOPHIL # (test code=EO#) 0.13 K/mm3 0.0-0.2 BASOPHIL # (test code=BA#) 0.03 K/mm3 0.0-0.2 NUCLEATED RBC # (test code=NRBC#) 0.00 K/mm3 0.0-0.1 UNABLE TO DRAW BLOOD, REASON: PROCEDURENOTIFIED PATIENT CARE STAFF: MICHELLE LOPEZ WILL CALL LABON 01/24/19 AT 1448 BY Aram Srivastava- CT HEAD/BRAIN W/O [id number] 15:30:00 Patient Name: LAMINE DOSHI Unit No: [id number] EXAMS: CPT CODE: [id number] CT HEAD/BRAIN W/O CONT 98928 EXAM: - CT HEAD /BRAIN W/O CONT Location code:C3 HISTORY: 29 years - old Female with SEIZURES TECHNIQUE: Axial CT images from the skull base to the vertex without intravenous contrast. Coronal and sagittal reformatted images werecreated from the data set. One or more of the following dose reduction techniques wereused: Automated exposure control, adjustment of the mA and/or kV according to patient size , and/or utilization of iterative reconstruction technique. COMPARISON: None FINDINGS: Intracranial: No abnormal brain parenchymal density. No evidenceof acute infarction, intracranial hemorrhage, mass or mass effect, or abnormal extra-axial fluid collection. The ventricular system and sulci are age appropriate. The density in the larger dural sinuses is grossly normal. Bones: There is no evidence of acute displaced calvarial fracture. Sinuses: The visualized portions of the paranasal sinuses demonstrate no significant opacification.The mastoid air cells are clear. Orbits/Soft Tissues: The visualized orbits show no significant abnormalities. The visualized soft tissues are unremarkable. IMPRESSION: 1. No intracranial hemorrhage. No acute intracranial abnormality. at 1530 Reported and signed by: Javier Briscoe MD CC: Cayla Sevilla MD Technologist: Parish Man, RT(R) CTDI: DLP: Trnscrpt : 01/24/2019 (1530) [email or web address] [facility] NAME: LAMINE DOSHI [address] PHYS : [email or web address] - [place] [address] : 05/1990 AGE: 29 SEX: F LOC: Z.621 B PHONE #: [phone] EXAM DATE: 2018 STATUS: ADM IN FAX #: [phone] RAD #: D/C DT PAGE 1 Signed Report Patient Name: LAMINE DOSHI Unit No: [id number] EXAMS: CPT CODE: [id number] CT HEAD/BRAIN W/O CONT 68974 <Continued> Orig Print D/T: S: (0923) [facility] NAME: LAMINE DOSHI [address] PHYS: [place]. - [place] [address] : 1990 AGE: 29 SEX: F LOC: Z.621 B PHONE #: [phone] EXAM DATE: STATUS: ADM IN FAX #: [phone] RAD #: D/C DT PAGE 2 Signed [id number] 22:58 :00 Test Item Value Reference Range Comments Amphetamine (test code=AMPH) Negative Negative For diagnostic purposes only, positive results should always be assessedin conjunctionwith the patient's medical history,clinical examination and otherfindings.To fulfill legal requirements, a more specific alternate chemical methodmust be used inorder to obtain a Confirmed analytical result. GC/MS is the preferred confirmatory method. Barbiturates (test code=CR) Negative Negative Benzodiazepine (test Negative Negative code=GRIFFIN) Cocaine (test code=COCA) Negative Negative Methadone (test code=MTHD) Negative Negative Opiates (test code=OPIA) Negative Negative PCP (test code=PCP) Negative Negative Propoxyphene (test Negative Negative code=PROPOX) THC (test code=THC) POSITIVE Negative Comprehensive Metabolic [id number] 22:56:00 Test Item Value Reference Range Comments [...] race is not provided, and the patient isAfrican-Gibraltarian, multiply by 1.212. If sex is not provided, and thepatient is female, multiply by 0.742. Results for patients <18 years ofage have not been validated by the MDRD study and should be interpretedwith caution.eGFR Result Interpretation:eGFR > or=60 is in the Normal RangeeGFR < 60 may mean kidney diseaseeGFR < 15 may mean kidney failureRanges recommended by the National Kidney Foundation,http://nkdep.nih .gov Alcohol/Ethanol, [id number] 22:56:00 Test Item Value Reference Range Comments Alcohol, Ethyl (test 0.25 g/dL 0.00-0.01 Intoxicated 0.080 g/dL or code=ETOH) more Urinalysis [id number] 22:54:00 Test Item Value Reference Range Comments Color (test code=COLOR) Daisha Yellow,Straw,Pl yellow Clarity (test code=CLAR) Clear Clear Specific Gabriels (test 1.020 1.001-1.035 code=SPGR) pH (test code=PH) [...] Bacteria (test code=BACT) Few /HPF BHCG, Urine, [id number] 22:50:00 Test Item Value Reference Range Comments Preg Qual [Ur] (test code=HUHCG) Negative Negative CBC with [id number] 22:38:00 Test Item Value Reference Range Comments [...] Lymph Abs (test code=ALYMPH) 1.6 K/cumm 0.5-4.6 [place] Abs (test code=AMONO) 0.2 K/cumm 0.0-1.2 Eos Abs (test code=AEOS) 0.09 K/cumm 0.00-0.74 Baso Abs (test code=ABASO) 0.0 K/cumm 0.00-0.21
[2019-08-24] MEDS ORDERED: MORPHINE 4 MG/ML SYR ONE (12:17)
[2019-08-24] MEDS ORDERED: NA CHLORIDE 0.9% 1,000 ML ONE (12:17)
[2019-08-24] MEDS ORDERED: ONDANSETRON 4 MG/2 ML VIAL ONE (12:17)
[2019-08-24 12:28] LABS: Absolute Lymphocytes (CBC) 1.3 K/uL (0.7-4.9); Basophils % 0.8 % (0-1.3); Hematocrit 38.3 % (36.0-45.0); MPV 8.4 fL (7.6-11.3)
[2019-08-24 12:29] LABS: Urine Blood NEGATIVE (NEG); Urine Glucose NEGATIVE (NEG); Urine Protein NEGATIVE (NEG); Urine Specific Gravity 1.015 (1.005-1.030)
[2019-08-24 12:34] LABS: BUN Blood Urea Nitrogen 4 mg/dL (7-18); Bicarbonate 27 mmol/L (21-32); Glucose Level 119 mg/dL (74-106); Potassium 3.1 mmol/L (3.5-5.1); Sodium Level 139 mmol/L (136-145)
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
--- NOTE | 2019-08-24 14:02 | ER ---
Nurse's Notes [facility] Name: Shae Dockery Age: 29 yrs Sex: Female : 1990 Arrival Date: 08/24/2019 Time: 09:49 Bed 18 Private MD: Diagnosis: Contusion of unspecified part of head;Contusion of left elbow;Contusion of left lower leg;Contusion of left front wall of thorax;Contusion of left back wall of thorax;Abrasion of unspecified part of head-face Presentation: 08/23 09:55 Chief complaint: Patient states: "can I leave it I fell", pain in left arm, left leg, ss left ribs. Coronavirus screen: The patient has NOT traveled to a country currently being monitored by the [facility] within the last 14 days. Proceed with normal triage procedures. The patient has NOT had contact with any known and/or suspected case of coronavirus. Proceed with normal triage procedures. Ebola Screen: Patient negative for fever greater than or equal to 101.5 degrees Fahrenheit, and additional compatible Ebola Virus Disease symptoms Patient denies exposure to infectious person. Patient denies travel to an Ebola-affected area in the 21 days before illness onset. No symptoms or risks identified at this time. Initial Sepsis Screen: Does the patient meet any 2 criteria? No. Patient's initial sepsis screen is negative. Does the patient have a suspected source of infection? No. Patient's initial sepsis screen is negative. Risk Assessment: Do you want to hurt yourself or someone else? Patient reports no desire to harm self or others. Note Pt reports she "fell" not last night but the night before. 09:55 Method Of Arrival: Ambulatory ss 09:58 Acuity: AYESHA 3 ss Historical: - Allergies: 09:57 NSAIDS (Non-Steroidal Anti-Inflamma; ss 09:57 Tylenol (Liver Issues); ss 09:57 Ibuprofen (Upset stomach); ss 09:57 Latex, Natural Rubber (Anaphylaxis); ss 09:57 tramadol (Seizures); ss 09:57 Ultram; ss - PMHx: 14:26 ADD/ADHD; alcohol abuse; Anemia; Anxiety; Bipolar disorder; Crohn's; Cirrhosis; jl7 Depression; GI Bleed; Liver disease; multiple blood transfusions; pt trying to get on liver transplant list; Seizures; self harm; suicidal ideation; - Immunization history:: Adult Immunizations unknown. - Social history:: Smoking status: unknown. Screenin:00 Abuse screen: Denies threats or abuse. Denies injuries from another. Nutritional jl7 screening: No deficits noted. Tuberculosis screening: No symptoms or risk factors identified. Fall Risk IV access (20 points). Total Pulido Fall Scale indicates No Risk (0-24 pts). Assessment: 12:00 General: Appears in no apparent distress. uncomfortable, Behavior is calm, cooperative. jl7 Pain: Complains of pain in left ribs Pain currently is 9 out of 10 on a pain scale. Pain began 2-3 days ago. Neuro: Level of Consciousness is awake, alert, obeys commands. Cardiovascular: Patient's skin is warm and dry. Respiratory: Airway is patent Respiratory effort is even, unlabored, Respiratory pattern is regular, symmetrical. Derm: Skin is pink, warm \\T\\ dry. 13:00 Reassessment: Patient appears in no apparent distress at this time. No changes from jl7 previously documented assessment. Patient and/or family updated on plan of care and expected duration. Pain level reassessed. Patient is alert, oriented x 3, equal unlabored respirations, skin warm/dry/pink. Vital Signs: 09:55 BP 141 / 114; Pulse 91; Resp 18; Temp 97.3; Pulse Ox 97% on R/A; Weight 74.84 kg; ss Height 5 ft. 7 in. (170.18 cm); Pain 9/10; 12:14 BP 131 / 88; Pulse 80; Resp 17; Temp 97.8(TE); Pulse Ox 97% on R/A; mh5 14:00 BP 130 / 86; Pulse 79; Resp 16 S; Pulse Ox 100% on R/A; jl7 09:55 Body Mass Index 25.84 (74.84 kg, 170.18 cm) ED Course: 09:49 Patient arrived in ED. mr 09:57 Triage completed. ss 11:22 Reggie Guerrier NP is PHCP. pm1 11:22 Alex Velazquez MD is Attending Physician. pm1 11:23 Hannah Zuniga, MICHLELE is Primary Nurse. vc 11:53 Radiology exam delayed due to test not completed at this time. bq 11:55 Elbow Left 3 View XRAY In Process Unspecified. EDMS 11:55 Tib Fib Left XRAY In Process Unspecified. EDMS 12:08 Urine collected: clean catch specimen, clear. 5 12:08 Patient has correct armband on for positive identification. Bed in low position. Call 5 light in reach. Warm blanket given. Pulse ox on. NIBP on. 12:15 Initial lab(s) drawn, by sd, sent to lab. Inserted saline lock: 20 gauge in right jl7 antecubital area, using aseptic technique. Blood collected. 12:15 Arm band placed on right wrist. jl7 12:21 Primary Nurse role handed off by Hannah Zuniga RN jl7 12:21 Viji Dietrich, MICHELLE is Primary Nurse. jl7 12:23 Radiology exam delayed due to lab results not completed at this time. (BUN/Creatinine). nj 13:25 CT completed. Patient tolerated procedure well. Patient moved back from CT. bq 13:27 Head C Spine Cap W Con In Process Unspecified. EDMS 14:23 No provider procedures requiring assistance completed. IV discontinued, intact, jl7 bleeding controlled, No redness/swelling at site. Pressure dressing applied. Administered Medications: 12:15 Drug: NS 0.9% 1000 ml Route: IV; Rate: 1000 ml; Site: right antecubital; jl7 14:22 Follow up: IV Status: Completed infusion jl7 12:16 Drug: Zofran (Ondansetron) 4 mg Route: IVP; Site: right antecubital; jl7 14:22 Follow up: Response: No adverse reaction jl7 12:17 Drug: morphine 4 mg Route: IVP; Site: right antecubital; jl7 12:45 Follow up: Response: No adverse reaction; Pain is decreased jl7 Outcome: 14:01 Discharge ordered by MD. pm1 14:24 Discharged to home ambulatory. jl7 14:24 Condition: stable 14:24 Discharge instructions given to patient, Instructed on discharge instructions, follow up and referral plans. Demonstrated understanding of instructions, follow-up care. 14:27 Patient left the ED. jl7 Signatures: Dispatcher [employer] [facility] Amanda Barrientos Betty Kourtney Benitez RN RN ss Marinas, Patrick, LETI BUTCHER'S ASSISTANT pm1 Oni Bowman Maria [facility] Viji Dietrich RN RN jl7 Hannah Zuniga RN RN vc Corrections: (The following items were deleted from the chart) 09:58 09:55 Acuity: AYESHA 4 ss ss 12:18 12:15 morphine 4 mg IVP in right antecubital salvatore jl7
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
[2019-08-24 14:42] VITALS: TEMP 97.8
[2019-08-24 14:43] VITALS: BP 130/86; O2SAT 100
== END 2019-08-24 14:27 | disposition home or self-care (01) ==
LOC: ER 09:46
DX: S00.81XA Abrasion of other part of head, initial encounter (principal); S00.93XA Contusion of unspecified part of head, initial encounter; S20.212A Contusion of left front wall of thorax, initial encounter; S20.222A Contusion of left back wall of thorax, initial encounter; S50.02XA Contusion of left elbow, initial encounter; S80.12XA Contusion of left lower leg, initial encounter; Y04.2XXA Assault by strike against or bumped into by another person, initial encounter; Y93.9 Activity, unspecified; Y92.9 Unspecified place or not applicable; Z88.5 Allergy status to narcotic agent; Z88.6 Allergy status to analgesic agent; Z88.8 Allergy status to other drugs, medicaments and biological substances; Z91.040 Latex allergy status
CPT/HCPCS: 36415; 70450; 71260; 72125; 74177; 80048; 81003; 81025; 85025; 96361; 96374; 96375; 99284; J2405; J7030; Q9967

== ENCOUNTER 2020-10-06 17:35 | Emergency (ER) | payer OTHER ==
--- OUTSIDE RECORDS SUMMARY | 2020-10-06 17:43 | XMS REPORT | Continuity of Care Document ---
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 13:30:00 [facility] Weight 2016-04-28 16:30:00 [facility] Height 2016-04-28 16:30:00 [facility] Heart Rate 2016-04-28 16:30:00 [facility] Diastolic (mm Hg) 2016-04-28 16:30:00 [facility] [place] Systolic (mm Hg) 2016-04-28 16:30:00 [facility] [place] Weight 2016-02-08 16:00:00 [facility] [place] Height 2016-02-08 16:00:00 [facility] Heart Rate 2016-02-08 16:00:00 [facility] [place] Diastolic (mm Hg) 2016-02-08 16:00:00 [facility] Systolic (mm Hg) 2016-02-08 16:00:00 [facility] [place] Weight 2015-10-30 18:00:00 [facility] [place] Height 2015-10-30 18:00:00 [facility] [place] Heart Rate 2015-10-30 18:00:00 [facility] Diastolic (mm Hg) 2015-10-30 18:00:00 [facility] Systolic (mm Hg) 2015-10-30 18:00:00 [facility] [place] Weight 2015-09-16 13:15:00 [facility] [place] Height 2015-09-16 13:15:00 [facility] Heart Rate 2015-09-16 13:15:00 [facility] [place] Diastolic (mm Hg) 2015-09-16 13:15:00 [facility] [place] Systolic (mm Hg) 2015-09-16 13:15:00 [facility] Weight 2015-08-05 14:00:00 [facility] Height 2015-08-05 14:00:00 [facility] Heart Rate 2015-08-05 14:00:00 [facility] Diastolic (mm Hg) 2015-08-05 14:00:00 [facility] Systolic (mm Hg) 2015-08-05 14:00:00 [facility] Weight 2015-04-23 18:45:00 [facility] [place] Height 2015-04-23 18:45:00 [facility] Heart Rate 2015-04-23 18:45:00 [facility] [place] Diastolic (mm Hg) 2015-04-23 18:45:00 [facility] [place] Systolic (mm Hg) 2015-04-23 18:45:00 [facility] Weight 2015-01-29 13:00:00 [facility] [place] Height 2015-01-29 13:00:00 [facility] [place] Heart Rate 2015-01-29 13:00:00 [facility] Diastolic (mm Hg) 2015-01-29 13:00:00 [facility] Systolic (mm Hg) 2015-01-29 13:00:00 [facility] Weight 2014-03-17 13:45:00 [facility] [place] Height 2014-03-17 13:45:00 [facility] [place] Heart Rate 2014-03-17 13:45:00 [facility] [place] Diastolic (mm Hg) 2014-03-17 13:45:00 [facility] Systolic (mm Hg) 2014-03-17 13:45:00 [facility] Weight 2014-02-12 13:45:00 [facility] [place] Height 2014-02-12 13:45:00 [facility] Heart Rate 2014-02-12 13:45:00 [facility] [place] Diastolic (mm Hg) 2014-02-12 13:45:00 [facility] Systolic (mm Hg) 2014-02-12 13:45:00 [facility] Weight 2014-01-30 13:45:00 [facility] Height 2014-01-30 13:45:00 [facility] Heart Rate 2014-01-30 13:45:00 [facility] [place] Diastolic (mm Hg) 2014-01-30 13:45:00 [facility] Systolic (mm Hg) 2014-01-30 13:45:00 [facility] Weight 2013-12-05 19:15:00 [facility] Height 2013-12-05 19:15:00 [facility] Heart Rate 2013-12-05 19:15:00 [facility] Diastolic (mm Hg) 2013-12-05 19:15:00 [facility] [place] Systolic (mm Hg) 2013-12-05 19:15:00 [facility] [place] Weight 2013-10-21 13:15:00 [facility] [place] Height 2013-10-21 13:15:00 [facility] [place] Heart Rate 2013-10-21 13:15:00 [facility] [place] Diastolic (mm Hg) 2013-10-21 13:15:00 [facility] [place] Systolic (mm Hg) 2013-10-21 13:15:00 [facility] Weight 2013-08-05 16:00:00 [facility] Height 2013-08-05 16:00:00 [facility] Heart Rate 2013-08-05 16:00:00 [facility] Diastolic (mm Hg) 2013-08-05 16:00:00 [facility] Systolic (mm Hg) 2013-08-05 16:00:00 [facility] Weight 2013-08-05 15:00:00 [facility] Height 2013-08-05 15:00:00 [facility] [place] Heart Rate 2013-08-05 15:00:00 [facility] Diastolic (mm Hg) 2013-08-05 15:00:00 [facility] [place] Systolic (mm Hg) 2013-08-05 15:00:00 [facility] [place] Procedures Procedure Date / Time Performing Clinician Source Performed HSV 1/2 PCR, QUALITATIVE 2020-09-12 03:53:00 Shelli Sanches [facility] CMV PCR, QUANTITATIVE 2020-09-12 03:53[facility] 2020-09-12 03:53:00 Shelli Sanches [facility] VITAMIN D, 25-HYDROXY 2020-09-12 03:53:00 [facility] 2020-09-12 03:53[facility]00 [facility] L[facility] 2020-09-12 03:53:00 Linnea Velásquez [facility] POCT-GLUCOSE METER 2020-09-11 21:48:00 Josette Brown [facility] POCT-GLUCOSE METER 2020-09-11 18:53:00 [facility] REPORT OF PROCEDURE - 2020-09-11 10:17:11 [facility] TISSUE EXAM 2020-09-11 09:24:00 Don [facility] UPPER ENDOSCOPY,BIOPSY 2020-09-11 09:00:00 Don [facility] CBC (HEMOGRAM ONLY) 2020-09-11 05:09:00 [facility] BASIC METABOLIC PANEL (7) 2020-09-11 05:09:00 [facility] PHOSPHORUS 2020-09-11 05:09:[address] [facility] MAGNESIUM 2020-09-11 05:09:[address] [facility] HEPATIC FUNCTION PANEL 2020-09-11 05:09:00 [facility] CYCLOSPORINE LEVEL 2020-09-11 05:09:00 Linnea Velásquez [facility] GAMMA GLUTAMYL TRANSFERASE 2020-09-11 05:09:00 Shelli Sanches [facility] (GGT) [facility] TYPE AND SCREEN, AUTOMATED 2020-09-11 05:09:00 Andrea Santos [facility] POCT-GLUCOSE METER 2020-09-10 21:47:00 Priya Brownsanford [facility] CT PELVIS WITHOUT IV 2020-09-10 18:45:00 [facility] PO[facility]SE METER 2020-09-10 17:12:00 [facility] 2020-09-10 12:56:[address] [facility] POCT-GLUCOSE METER 2020-09-10 12:10:00 [facility] CBC (HEMOGRAM ONLY) 2020-09-10 05:35:00 [facility] BASIC METABOLIC PANEL (7) 2020-09-10 05:35:00 [facility] PHOSPHORUS 2020-09-10 05:35:[address] [facility] MAGNESIUM 2020-09-10 05:35:[address] [facility] HEPATIC FUNCTION PANEL 2020-09-10 05:35:00 [facility] POCT-GLUCOSE METER 2020-09-09 23:54:00 [facility] XR HIP 2 VIEWS LEFT 2020-09-09 20:11:00 Shahzad Dillon [facility] POCT-GLUCOSE METER 2020-09-09 17:32:00 [facility] POCT-GLUCOSE METER 2020-09-09 12:15:00 [facility] CYCLOSPORINE LEVEL 2020-09-09 05:21:00 [facility] CBC (HEMOGRAM ONLY) 2020-09-09 05:21:00 [facility] BASIC METABOLIC PANEL (7) 2020-09-09 05:21:00 [facility] PHOSPHORUS 2020-09-09 05:21:[address] [facility] MAGNESIUM 2020-09-09 05:21:[address] [facility] HEPATIC FUNCTION PANEL 2020-09-09 05:21:00 [facility] PROTHROMBIN TIME/INR 2020-09-09 05:21:00 [facility] HEMOGLOBIN A1C 2020-09-09 05:21:00 Maggy[facility] PO[facility]UCOSE METER 2020-09-08 23:51:00 Maggy, [facility] MR ABDOMEN WO CONTRAST 2020-09-08 19:50:00 Maggy, Reinierid Shavonne C [facility] POCT-GLUCOSE METER 2020-09-08 12:18:00 Maggy, [facility] CYCLOSPORINE LEVEL 2020-09-08 05:55:00 [facility] CBC (HEMOGRAM ONLY) 2020-09-08 05:55:00 [facility] BASIC METABOLIC PANEL (7) 2020-09-08 05:55:00 [facility] PHOSPHORUS 2020-09-08 05:55:[address] [facility] MAGNESIUM 2020-09-08 05:55:[address] [facility] HEPATIC FUNCTION PANEL 2020-09-08 05:55:00 [facility] PROTHROMBIN TIME/INR 2020-09-08 05:55:00 [facility] POCT-GLUCOSE METER 2020-09-08 00:01:00 Maggy [facility] POCT-GLUCOSE METER 2020-09-07 19:00:00 Maggy, [facility] POCT-GLUCOSE METER 2020-09-07 11:14:00 Maggy, [facility] CYCLOSPORINE LEVEL 2020-09-07 04:58:00 [facility] CBC (HEMOGRAM ONLY) 2020-09-07 04:58:00 [facility] BASIC METABOLIC PANEL (7) 2020-09-07 04:58:00 [facility] PHOSPHORUS 2020-09-07 04:58:00 ChuTheresa [facility] MAGNESIUM 2020-09-07 04:58:[address] [facility] HEPATIC FUNCTION PANEL 2020-09-07 04:58:00 [facility] PROTHROMBIN TIME/INR 2020-09-07 04:58:00 [facility] IRON, TIBC, % SAT. 2020-09-07 04:58:00 [facility] (WITHOUT FERRITIN) [facility] 2020-09-07 04:58:00 [facility] US DOPPLER 2020-09-06 23:48:[address] [facility] US ABDOMEN LIMITED 2020-09-06 23:48:00 [facility] SARS-COV2/RT-PCR ([facility] & 2020-09-06 22:11:00 Theresa Naranjo [facility] - REF LABS) [facility] COMPREHENSIVE METABOLIC 2020-09-06 21:57:00 Theresa Naranjo [facility] I [facility] CBC W/PLT COUNT & AUTO 2020-09-06 21:57:00 [place]Theresa [facility] DIFFERENTIAL [facility] PROTHROMBIN TIME/INR 2020-09-06 21:57:00 DeweyvilleTheresa [facility] PHOSPHORUS 2020-09-06 21:57:00 Theresa Naranjo [facility] MAGNESIUM 2020-09-06 21:57:00 [facility] POCT-GLUCOSE METER 2020-09-06 21:04:00 Cande Sandoval [facility] MISCELLANEOUS LAB ORDER 2020-08-03 11:01:00 Blair Orellana [facility] HEPATITIS A ANTIBODY, IGG 2020-08-03 11:01:00 Blair Orellana [facility] BASIC METABOLIC PANEL (7) 2020-08-03 11:01:00 Blair Orellana [facility] HEPATIC FUNCTION PANEL 2020-08-03 11:01:00 Blair Orellana CH, I [facility] CBC W/PLT COUNT & AUTO 2020-08-03 11:01:00 Blair Orellana CH, I [facility] PROTHROMBIN TIME/INR 2020-08-03 11:01:00 Blair Orellana [facility] CYCLOSPORINE LEVEL 2020-08-03 11:01:00 Blair Orellana [facility] HEPATITIS B SURFACE 2020-08-03 11:01:00 Blair Orellana [facility] ANTIBODY [facility] HEPATITIS B SURFACE 2020-08-03 11:01:00 Blair Orellana [facility] ANTIGEN [facility] HEPATITIS B CORE ANTIBODY, 2020-08-03 11:01:00 Blair Orellana [facility] TOTAL [facility] Transfusion of Blood [facility] Colonoscopy [facility] Gastric Bypass [facility] Cholecystectomy [facility] Tubal Ligation [facility] Plan of Care Planned Activity Planned Date Details Comments Source Future Scheduled 2021-02-[address] [facility] - Test 00:00:00 (Season Ended) [code = Medic al Center INFLUENZA VACCINE (Season Ended)] Future Scheduled 2009-01-[address] [facility] 00:00[facility]00 [facility] cervix (procedure) [code = 466682531] Future Scheduled 2007-01-21 DTAP/TDAP/TD VACCINES [facility] Test 00:00:00 (1 - Tdap) [code = Medical C enter DTAP/TDAP/TD VACCINES (1 - Tdap)] Future Scheduled 2006-01-21 HEPATITIS C [facility]CRE[facility]ING [facility] Test 00:00:00 [code = HEPATITIS C Medical Center SCREENING] Future Scheduled 1994-01-[address] [facility] - Test 00:00:00 0-64 YRS (1 of 3 - Medical C enter PCV13) [code = PNEUMOCOCCAL VACCINE 0-64 YRS (1 of 3 - PCV13)] Encounters Start End Encounter Admission Attending Care Care Encounter Source Date/Time Date/Time Type Type Clinicians Facility Department ID 2020-08-08 2020-08-08 Outpatient NILA, [facility] [id number] [place] 00:00:00 00:00:00 KRIS [address] 2020-07-18 2020-07-18 Outpatient NILA, [facility] [id number] [place] 00:00:00 00:00:00 KRIS 772 [facility] 2020-07-09 2020-07-09 Outpatient NILA, [facility] [id number] [place] 00:00:00 00:00:00 RAFIK [address] 2020-07-02 2020-07-02 Outpatient NILA, [facility] [id number] [place] 00:00:00 00:00:00 RAFIK [address] 2020-07-02 2020-07-02 Outpatient NILA, [facility] [id number] [place] 00:00:00 00:00:00 KATELYNIK [address] 2020-07-02 2020-07-02 Outpatient [facility] [id number] 479 [place] 00:00:00 00:00:[address] 2020-05-29 2020-05-29 Outpatient NILA, [facility] [id number] [place] 00:00:00 00:00:00 KRIS [address] 2020-05-11 2020-05-11 Outpatient NILA, [facility] [id number] [place] 00:00:00 00:00:00 KRIS [address] 2020-04-30 2020-04-30 Outpatient NILA, H [facility] [id number] [place] 00:00:00 00:00:00 RAFIK [address] 2020-04-30 2020-04-30 Outpatient NILA, H [facility] [id number] [place] 00:00:00 00:00:00 RAFIK [address] 2020-04-30 2020-04-30 Outpatient HMH [facility] [id number] [place] 00:00:00 00:00:[address] 2020-04-30 2020-04-30 Outpatient H [facility] [id number] [place] 00:00:00 00:00:[address] 2020-04-27 2020-04-27 Outpatient NILA, [facility] [id number] [place] 00:00:00 00:00:00 RAFIK [address] 2020-04-23 2020-04-23 Outpatient NILA, [facility] [id number] [place] 00:00:00 00:00:00 KATELYNIK [address] 2020-04-20 2020-04-20 Outpatient NILA, [facility] [id number] [place] 00:00:00 00:00:00 RAFIK [address] 2020-04-16 2020-04-16 Outpatient NILA, [facility] [id number] [place] 00:00:00 00:00:00 KATELYNIK [address] 2020-04-16 2020-04-16 Outpatient NILA, [facility] [id number] [place] 00:00:00 00:00:00 KATELYNIK [address] 2020-04-16 2020-04-16 Outpatient MONICA, [facility] [id number] [place] 00:00:00 00:00:00 JEFFREY [address] 2020-04-16 2020-04-16 Outpatient [facility] [id number] [place] 00:00:00 00:00:[address] 2020-04-13 2020-04-13 Outpatient NILA, [facility] [id number] [place] 00:00:00 00:00:00 RAFIK [address] 2020-04-10 2020-04-10 Outpatient NILA, [facility] [id number] [place] 00:00:00 00:00:00 RAFIK 963 [facility] 2020-04-09 2020-04-09 Outpatient NILA, [facility] [id number] [place] 00:00:00 00:00:00 RAFIK 120 [facility] 2020-04-06 2020-04-06 Outpatient NILA, [facility] [id number] [place] 00:00:00 00:00:00 RAFIK 100 [facility] 2020-02-07 2020-04-01 Inpatient TASTARD, [facility] [id number] [place] 00:00:00 00:00:00 SHAMEKA 066 [facility] 2020-01-28 2020-02-07 Inpatient BOGDAN, [facility] [id number] [place] 00:00:00 00:00:00 KOKI 405 Meth rhett 2019-12-25 2020-01-13 Inpatient BRANDON, [facility] [id number] [place] 00:00:00 00:00:00 RODO 938 [facility] 2019-11-09 2019-12-25 Inpatient SAHARIA, [facility] [id number] [place] 00:00:00 00:00:00 NICHOLE 827 [facility] 2019-11-01 2019-11-09 Inpatient JOGLEKAR, [facility] [id number] [place] 00:00:00 00:00:00 HIREN 050 [facility] 2019-04-19 2019-04[id number] 00:00:00 00:00:00 Natalya Tucker, [facility] [employer], S: [facility] al [address] [facility] [address], [place] [address] , Ph. 2017-03-17 2017-03-17 Outpatient Pachie S Pachie S [id number] [facility] 10:15:00 10:15:00 [facility] [place] 2017-03-09 2017-03-09 Outpatient Pachie S Pachie S [id number] [facility] 10:53:00 10:53:00 [facility] [place] 2017-01-30 2017-01-30 Outpatient Pachie S Pachie S [id number] [facility] 13:16:00 13:16:00 [facility]tan Benton [facility] [place] 2016-12-23 2016-12-23 Outpatient Pachie S Pachie S [id number] [facility] 09:34:00 09:34:00 [facility] [place] 2016-12-21 2016-12-21 Outpatient Pachie S Pachie S [id number] [facility] 12:46:00 12:46:00 [facility] [place] 2016-11-16 2016-11-16 Outpatient Pachie S Pachie S [id number] [facility] 12:58:00 12:58:00 [facility] [place] 2016-10-27 2016-10-27 Outpatient Pachie S Pachie S [id number] [facility] 13:15:00 13:15:00 [facility] [place] 2016-10-21 2016-10-21 Outpatient Pachie S Pachie S [id number] [facility] 09:00:00 09:00:00 [facility] [place] 2016-10-13 2016-10-13 Outpatient Pachie S Pachie S [id number] [facility] 14:19:00 14:19:00 [facility] [place] 2016-09-19 2016-09-19 Outpatient Pachie S Pachie S [id number] [facility] 13:28:00 13:28:00 [facility] [place] 2016-08-18 2016-08-18 Outpatient Pachie S Pachie S [id number] [facility] 08:30:00 08:30:00 [facility] [place] 2016-08-16 2016-08-16 Outpatient Pachie S. Pachie S. [id number] [facility] 08:45:00 08:45:00 MD [facility] [place] 2016-07-07 2016-07-07 Outpatient Pachie S. Pachie S. [id number] [facility] 14:22:00 14:22:00 MD [facility] [place] 2016-06-08 2016-06-08 Outpatient Pachie S. Pachie S. [id number] [facility] 10:23:00 10:23:00 MD [facility] [place] 2016-05-10 2016-05-10 Outpatient Andreas Johns S. [id number] [facility] 09:08:00 09:08:00 MD [facility] [place] 2016-04-28 2016-04-28 Outpatient Andreas SMalik Johns S. [id number] [facility] 10:30:00 10:30:00 MD [facility] 2016-02-08 2016-02-08 Outpatient Andreas Johns S. [id number] [facility] 11:00:00 11:00:00 MD [facility] [place] 2015-11-17 2015-11-17 Outpatient Andreas S. Andreas S. [id number] [place] 08:56:00 08:56:00 MD [facility] [place] 2015-10-30 2015-10-30 Outpatient Andreas S. Andreas S. [id number] [place] 13:00:00 13:00:00 MD [facility] [place] 2015-10-02 2015-10-02 Outpatient Andreas Johns S. [id number] [facility] 12:15:00 12:15:00 MD [facility] [place] 2015-09-20 2015-09-20 Emergency [facility] [id number] [place] 00:00:00 00:00:[address] 2015-09-16 2015-09-16 Outpatient Andreas Johns S. [id number] [facility] 08:15:00 08:15:00 MD [facility] [place] 2015-09-15 2015-09-15 Emergency [facility] [id number] 93 [place] 00:00:00 00:00:[address] 2015-09-11 2015-09-12 Emergency MEDINA, [facility] [id number] [place] 00:00:00 00:00:00 WILLIAN [address] 2015-09-04 2015-09-05 [facility] [id number] [place] 00:00:00 00:00:00 LINNEA [address] 2015-08-12 2015-08-12 Outpatient Andreas Johns S. [id number] [facility] 08:17:00 08:17:00 MD [facility] [place] 2015-08-05 2015-08-05 Outpatient Andreas S. Andreas S. [id number] [place] 08:00:00 08:00:00 MD [facility] [place] 2015-06-19 2015-06-19 Outpatient Andreas S. Andreas S. [id number] [facility] 08:39:00 08:39:00 MD [facility] [place] 2015-05-28 2015-05-28 Outpatient Andreas S. Andreas S. [id number] [facility] 13:41:00 13:41:00 MD [facility] [place] 2015-05-22 2015-05-22 Outpatient Andreas S. Andreas S. [id number] [facility] 08:05:00 08:05:00 MD [facility] [place] 2015-04-23 2015-04-23 Outpatient Andreas S. Andreas S. [id number] [facility] 12:45:00 12:45:00 MD [facility] [place] 2015-02-20 2015-02-20 Outpatient Andreas S. Andreas S. [id number] [facility] 09:57:00 09:57:00 MD [facility] [place] 2015-01-29 2015-01-29 Outpatient Andreas S. Andreas S. [id number] [facility] 08:00:00 08:00:00 MD [facility] [place] 2014-12-16 2014-12-16 Outpatient Andreas S. Andreas S. [id number] [facility] 10:00:00 10:00:00 MD [facility] [place] 2014-07-14 2014-07-14 Outpatient Andreas S. Andreas S. [id number] [facility] 13:45:00 13:45:00 MD [facility] [place] 2014-06-11 2014-06-11 Outpatient Andreas S. Andreas S. [id number] [facility] 11:01:00 11:01:00 MD [facility] [place] 2014-05-15 2014-05-15 Outpatient Pachie S. Pachie S. [id number] [facility] 14:06:00 14:06:00 MD [facility] [place] 2014-05-13 2014-05-13 Outpatient Pachie S. Pachie S. [id number] [facility] 09:06:00 09:06:00 MD [facility] [place] 2014-04-08 2014-04-08 Outpatient Pachie S. Pachie S. [id number] [facility] 11:44:00 11:44:00 MD [facility] [place] 2014-03-17 2014-03-17 Outpatient Pachie S. Pachie S. [id number] [facility] 08:45:00 08:45:00 MD [facility] [place] 2014-03-06 2014-03-06 Outpatient Pachie S. Pachie S. [id number] [facility] 10:14:00 10:14:00 MD [facility] [place] 2014-02-12 2014-02-12 Outpatient Pachie S. Pachie S. [id number] [facility] 08:45:00 08:45:00 MD [facility] [place] 2014-02-07 2014-02-07 Outpatient Pachie S. Pachie S. [id number] [facility] 09:08:00 09:08:00 MD [facility] [place] 2014-02-04 2014-02-04 Outpatient Pachie S. Pachie S. [id number] [facility] 10:29:00 10:29:00 MD [facility] [place] 2014-01-30 2014-01-30 Outpatient Pachie S. Pachie S. [id number] [facility] 08:45:00 08:45:00 MD [facility] [place] 2014-01-07 2014-01-07 Outpatient Pachie S. Pachie S. [id number] [facility] 14:16:00 14:16:00 MD [facility] [place] 2013-12-05 2013-12-05 Outpatient Pachie S. Pachie S. [id number] [facility] 14:15:00 14:15:00 MD [facility] [place] 2013-11-01 2013-11-01 Outpatient Andreas Johns S. [id number] [facility] 12:34:00 12:34:00 MD [facility] [place] 2013-10-21 2013-10-21 Outpatient Andreas Johns S. [id number] [facility] 08:15:00 08:15:00 MD [facility] [place] 2013-10-09 2013-10-09 Outpatient Andreas Johns S. [id number] [facility] 10:30:00 10:30:00 MD [facility] [place] 2013-10-07 2013-10-07 Outpatient Andreas Johns S. [id number] [facility] 09:42:00 09:42:00 MD [facility] [place] 2013-09-04 2013-09-04 Outpatient Andreas Johns S. [id number] [facility] 13:02:00 13:02:00 MD [facility] 2013-08-05 2013-08-05 Outpatient Andreas Johns S. [id number] Memoria 10:00:00 10:00:00 [facility] Test Description Test Time Test Comments Results Result Comments Source Zinc 2020-09-18 09:29:00 Test Item Value Reference Range Interpretation Comme nts Zinc (test code = 55 See_Comment L This test was developed ) and its analyti gasper performance characteristics have been determined by [employer]. It has not been cleared or approved by theFDA. This assay has been validated pursuant to the CLIA regula tions and is used for cli nical purposes. [Auto mated message] The sy stem which generated this result transmitted ref erence range: 60 - 130 mcg/dL. The reference r sami was not used to int erpret this result as betsey l/abnormal. YEHUDA (test code = YEHUDA) Performing Lab *ROSANG[facility], [address] [place] [id number] Clarence Mitchell MD Lab Interpretation (test Abnormal code = 61777-6) [facility] 1/2 PCR, [id number] 10:50:00 Test Item Value Reference Range Interpretation Comments HSV, PCR (test code = NEGATIVE NEGATIVE 36729-5) YEHUDA (test code = YEHUDA) Herpes Simplex Virus (HSV) not detected. TEST PERFORMED BY [facility] Lab Interpretation (test Normal code = 40182-0) [facility], [id number] 10:50:00 Test Item Value Reference Range Interpretation Comments HSV BY PCR (BEAKER) (test code = NEGATIVE NEGATIVE 334) Herpes Simplex Virus (HSV) not detected.TEST PERFORMED BY [facility] Tissue [id number] 11:45:00 Test Item Value Reference Range Interpretation Comments Case Report (test Surgical Pathology Report code = 104) Case: [id number] Authorizing Provider: Jose Roberto Ochoa Collected: 09/11/2020 09:24 AM MD Dmitry Ordering Location: [address] Received: 09/11/2020 01:14 PM Service Pathologist: Trini Delgadillo MD Specimen: Gastric, GASTROJEJUNOSTOMY ULCER BX DIAGNOSIS (test code j5tqaGYfTDExi9xiNUJlmPZzG = 3220) zEwMzNcZnRuYmpcdWMxIHtccn RmMVxlcGljOTIwMlxhbnNpXHN umONtT8FsssrcZKswBS9gQE5v rZwpbSWjzNRpAVLdHnGvb3bcj 316fTYmt8orKNKTqnlyiPe9uD kuU60rm6O1VitxW42uvPMiQOl pqHNeozmkavQmZClSY4JLE5dY PoEQM5LKV87WDRGGS5SQZKMTL S1PB8a9DUQgbkOwHB8lW1RRXN RJZX3JLWIJMF6KZTJRDrDZOZ9 NO1WAUoQPPAMDIQPQIQRBUPeL UfxBLN3KADtVGzEHJjUmHf7KH WacVKBHV2lORgadTXMxGLYeZQ 7VU5GONNHNKPMZRiQSGUoSM70 NXTFAFTBxFQlGY4FTXBEFRQiL RuQRNT8xN7RPYlYBFQULIVeIH XOkoeGpRH5jReTGVMJPDfUiXq 4HPC2DGKyDWbDKV0jufFWwZUX ssa14VCI8TlHcw0H7ZOC2PNUd ZLOdg7ixXFNjoLPoNkHoXiLtK wBwEusdhLKxNAFmLhOru4fvy7 00nFVhn1udIKUiMaZ9mDHbUWN vyMQnX686CUJrHVzhj9ddu7Ey YAHgkSLjf1E2ZGOXzusvgLd1k EmfE00rk6Z0ZgpeV7wgPFZiNJ FiD0KbZP0oTSOgNvl0GNL0LEX 9XHVgAWIlX4IdJY7dHJIoqQIz MOd9j9nhqNjrLGEpDML0m0czL KxpbhVaSC9ixd7upDz7o9wvlq NrUBXaXTZfuGBZARSjA0EahPg eNe1taMc6hRaoLmkwYTZ4Pny5 XP2szl96jnm0zOdgRNPuurwgK xA2VYfmNCOztwahAIf1UMhoQB MigFR0PYKxgQCyA1PbACKzRL2 ecsn2ZRD3HOijDGWnTpS0MMEc tZIkNIXgyYjlWTowr094CTE2R jWnVV4hU6Hjk1J1qM2soULsHK PlpMMzIkReSTViso5rnQBpDRo fc9CeXUW9feX4xYZekXDzYQUp NhA5CQnpRY8hep52HJMkDMB2k o2ejFRrdJrhzwLyzBGtVJjjM3 OrNYQwk354LGFtP6GdBPIhm4A 2nmTgEeUfMSOkdPK3krN6BNLt GD7ahuntf3kwDXwlLAqmDNYmj iA5rdA3TUGmiRGdO6XokZ2yEL UeOS4kxtmsk6wgQUP0GSmoFGS aGWN0TcZvXOObv5Iivsr5UhAr m0RjcLLiGNddA07ki150HCQsx wYoW6dpfGFnofedgRFcfcdoYV iwheU6ECLcBYfalxzfWIOqIVr yK0qjHoWzZWScgRovFSezm8Nm BXKjCVTeDlQefEKfAWRbGmk5M QCraBZyYLVxYhSkW6pgtpnxCr DINYMcx6gpQ7yleUNShJLjK6G gUGhvbmUgTGluZTogODMyLTM1 PM95LNB8BBPdgv39 CPT Code(s) (test c4ulgFBzQAOllMB4MuAcLQBuk code = 3357) 1ddr1MalNDacGXyGPmemSZwmi Obvj42cXS3fH90HF3xQYSbDwA 4IBGwnwB5Zct6SRRkHRIbxZYs E293b6mue0gqeaJobLJ9iLqbE XJkXHBsYWluXGZzMjAgODgzMD UerHVcEJo6LsZgETLqbm7= CLINICAL HISTORY w4lcjILlTPTrjBU0DrBkQZRhs (test code = 3356) 7dvm0EkmGSbpAHxTBhseRDzed Krzf07yDV4zT82LW6nGGSeQvP 6VDWsopE8Dgg0DVVcLMTpsWFz W465v7pxv9lsgzXjrHW4aFstY ICmXANnUEwrNLReZdYzS2psDv xFRURccGFyfQ== SPECIMEN SOURCE h0wrnQXgBVDsjMO3WxOpWNMdc (test code = 3377) 5dls5NdnVGefYTcTBofvRFydw Vzcp08oJL7gW77HW7tRHRkWeL 7CXQxeeX8Fak0OXVaFAUcvXBx N647o9egd8vzgmDstTW7eMlmB XBfXKZwXJwrBDRcVdOmT2MyjO FkU9siLZI5 GROSS DESCRIPTION v1xykUApOXQajTLpEdVvVRZfZ (test code = 3366) RGvh7qmRJXwpXSpElIaBfGmQt PtSjfnoCGsQHAyIoYac0vpp10 9hCFcm5wtGMTuEpN7cFLgLQJd bBHgE265w9alc7vkdiDnyTL7E WMlKVG1TXekafZsxiY3DSddaQ KyBaE3KBvmagTcPAyuduOqkzJ kTuk6OKLlU763FZC7pQyje5kf PWU3FEBfACWbGzJgWm9ncANlD 747UCXwSEQQYIRroUe8UBAjhi SjydRtcUSQt751B410u4rpHBI mbfHjaBxAvtlgj4luV942YWXd dFAehdJsAdHwMZNzqKBreKA0X DXdOL6dhrvbThSmZJ9farzsVm YwYS6odux9RkCnIC6hbnvfElW gOBnqWIUnuvfuNOWwj6Ilbjxu TO4qT5Vuc5U3yL8ubNJbOBHjg OJnJvIoDKLbei3weIHfIFzmu3 LmBPJ4ffC6qEMtxQLkAIPlFQ7 5Nlumg2UoKwohTFO7ZQLayyDx h2Kiq3ygGiCmbeXpS2jgI2UaQ ZLgEQYdMNFgBoBlmaGcu8Mlf0 UgySIoyWm2u8izJTNkLCUdfDo gq5uqCZI3SOKuY6T4lJEhy9cv QVcxOAHrtYT7iktzHCmkQRPtw fQ6nvxxCYacCEHfxVT5idvpNK nwWFAzYjQ1ttnyCPgoZXNqUEY 5IXrqj637QYW3QHdbLdoyKObb XHBnbmNvbnRccGduZGVjXHBsY WluXHBsYWluXGYwXGZzMjRccW lkrJsoyE3bWcQgSuFeGBffEM1 wSDKjA5tvlNCrUANdGZFzA4qz ImXooH3uaHmxWQpfsrCdXDScM 6XwkjNcNHwrVGUjnf2amLhvFR xhYmVsZWQgdGhlIHBhdGllbnQ zavIpIU1bAAWjF6Zja9Zej26q xvMeCrUkQEEaFRYxB2VodSWrh jZolD1qx0TdzOzdiRttCQAsHE mkXZRtVK5zJEtaKL2jYRmaOU8 kBNQiLIRgge0pwE6wLBSga4T1 VSDmmdNlvQEobON7iXyiuFRqk fYosKn5NNGwDVNegwHom0VamC x0wPZmVRsoYTVnqW0ipX6jDTJ uXHBhclxwYXIgUGlsYXIgQXJn dWVsbGVzLCBQQSwgSFQgKEFTQ 8WxJIJqgz0= MICROSCOPIC e2yxkMIpBFCfhRT1VxAnGWMkj DESCRIPTION (test 9rop3GgiRMwmZLiICxykBYokc code = 3371) Csst07iCZ7kW30WE3zDTDwOnO 9YFMqxtU5Uxg4GKKmNCCdiSKt G111d9kpq0sxyhEgqEX5mUsaM XJkXHBsYWluXGZzMjAgUGVyZm 7xkRElKUXqiu4= SPECIAL STUDIES c3laeALkRBLbiFS1UkYyOOKof (test code = 3376) 9lgg6TycMQixTGpRGiozDUgqj Mrwy35xBQ6xJ36VB6oBPCdMgF 0TYXuxqC6Weq8ZBReCIUxuRTw M099RQVlZPPxqRrfwsy0gV35M EByzN6mgJQiOYo2SLXctwSzuG xozB8qOpJeSqAmVrZMmNFbcD2 3ADRmqgK1TVTpx42sa6QtiExv xsGfFGLuXZtzI2f2HSRdNPJwR FQ5x5Kdj1CqzN0waX9iqPxtxS 1isIMhnTV3jxoue1Aua4MdD3w hbCBzdGFpbnMuXHBhciBXQVJU BRgHQOBFPTRLNQtkMBEeJ23fq HJvbCBTbGlkZXMgRXhhbWluZW O2YGMNhj2ce9PaDPUddj52vkD uj2VjgHu4EEYhe723ve8hecY6 FEQhLMQ5UKh3RWXuSNQheK8eH zW3mKIdGETdRMP2CLI6VBPfr1 P4MY2lXNNhCVEhFJYybqSqh6u wo1sfIBPvLOO6avCzgL0bT6Mc RWWlt5NfuTboUTJmxIjeosBiT HHsuVChFSAptL44WFFsiHIohJ GvPJFjDDU2UGhspH7oHkMCyiC cgt7vhIJnw4EclEg1NBLtaqUe ffElOLHnroChI14kjTQsyAYxx 2hlbiBhdmFpbGFibGUgYXJlIG I0QHd0AIVxQEmyVAKvAIwePHQ wNO9vjT8yfGjupH5rhJNzpMY6 envazVYwmB3cL0NdQRLow0Ghx ooaz0BtYWLezqRiae1pUXGthQ LXZLflp7LdX4QrFTq8a5IgwSe yVGreIUs9UvQlBFUpkEQviDBE BG29NFWwAOCgeTdurG5eqGLBW MFnbcD3n9G3KKqkWWFoBGz1MS vfnoNsVUZgrX8vZPOqPV1jIBv 6qpPnBFYpd7VvXL2jOKUjnYNk WXL7XIFzb6ZwP0Jcg2OoVNEfJ HUiye3mooDeCrNOrGGkJPAsyn 78LPRaKW8pS3bpDTCnNGDjpxO ofCIqm8ZdVSMhrIQ9pHEpNG0J XpMUb98jFMWeEDWYkaVfFSAdc TfamCX0lyD5qV0oVgPFcLYqIq JQYZfzcxZrEUUpgr3ltbSqYXS qZBCpk3BobPIsxVGeeqXfU1Uj a0ApFJMvtj22HLcvoSMucf61C S2bD5Akr6ZwlN4rLLaeTYQgt4 NyrEVbnXThFVSrf2UhD5hdqzp zUTgxqBIyeE3wCHXuAFe3ORIo g8VwZBIib8ShYlQamyCiQDGpO JSeFUWcmN53OSZ3cIsacHicux SxRW5hSKEjokHyGLLfMWCsyX2 fHYettxOlPQIjpgW9h3E5FTwn JPPdllLsDhmiELE9hyEyaeS2x KCvC0onlqidFWetVRZvp7QkqD 3frSTBiNKtn9TsePMuyHTCbDG nTC3fojFeKN6cQFR2NCzoQOIZ XBJgGYlfFHHyGXN6GRpiSxegT YS1vaLeWSKlt6RsSKirQ7oiA2 0pfHamhYv4nFVbcAwwjNTjuMT iDGTxlfR1g0W2KIMfb7Miyzgd XHBhcn0= [facility] [id number] 11:45:00Surgical Pathology Report Case: [id number] Authorizing Provider: Jose Roberto Ochoa Collected: 09/11/2020 09:24 AM MD Dmitry OrderingLocation: [address] Received: 09/11/2020 01:14 PM Service Pathologist: Trini Delgadillo MD Specimen: Gastric, GASTROJEJUNOSTOMY ULCER BX GASTROJEJUNOSTOMY ULCER, BIOPSY: - GASTROINTESTINAL ANASTOMOSIS WITH ACUTE INFLAMMATION AND FOCAL EROSION - NEGATIVE FOR HELICOBACTER PYLORI BY WARTHIN STARRY STAIN - NEGATIVE FOR MALIGNANCY Signing Pathologist DirectPhone Line: [phone] signed by Trini Delgadillo MD on 09/12/2020 at 11:44 [id number] BLEEDGastricReceived in formalin labeled the patient's name, accession number and "gastrojejunostomy ulcer" is a 0.3 x 0.2 x 0.2 cm ghosh-pink tissue fragment which is filtered and submittedin toto in A1.AYAAN Valente, HT (ASC)PerformedThe interpretation of this case included the use of immunohistochemistry or special stains.WARTHIN-STARRYControl Slides Examined: In-house known positive controls were evaluated along with the test tissue. These control slides run alongside of thepatients sample show appropriate staining. Internal positive and negative controls when available are evaluated Immunohistochemistry technical testing was performed at [facility],Pathology Laboratory where it was developed and its [...] qualified to perform high complexity clinical laboratory testing.Cyclosporine [id number] 08:17:00 Test Item Value Reference Range Interpretation Comments Cyclosporine Lvl 58 ng/mL <400 Test perfor med on (test code = 3520-4) [facility] Consultant Immunoassay sys tem with Chemilumin escent Microparticle Immunoassay (CM IA) technology. YEHUDA (test code = 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 ID - YEHUDA) AAHAMID Lab Interpretation Normal (test code = 95096-8) [facility] [id number] 08:17:00 Test Item Value Reference Range Interpretation Comments CYCLOSPORINE BLOOD 58 ng/mL <400 Test perf ormed on [place] (BEAKER) (test code = Clive ect Immunoassay 672) system with Chemiluminescen t Microparticle Immunoassay (CM IA) technology. 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 ID - AAHAMIDVitamin D, 80-[id number] 04:53:00 Test Item Value Reference Range Interpretation Comments Vitamin D 25-Hydroxy 19.7 ng/mL 6.6-49.9 (test code = 2764) YEHUDA (test code = YEHUDA) Effective 03/22/2017: Reference Range ChangeNew: 6.6-49.9 ng/mL Previous: 13.0-47.8 ng/mL Recommended Vitamin D Target Range: 30.0-40.0 ng/mLOperator ID - DB Lab Interpretation (test Normal code = 05879-7) [facility] D, [id number] 04:53:00 Test Item Value Reference Range Interpretation Comments VITAMIN D 25-OH (BEAKER) (test 19.7 ng/mL 6.6-49.9 code = 2764) Effective 03/22/2017: Reference Range ChangeNew: 6.6-49.9 ng/mL Previous: 13.0-47.8 ng/mLRecommended Vitamin D Target Range: 30.0-40.0 ng/mLOperator ID - DBPOC-Glucose [id number] 21:59:00 Test Item Value Reference Range Interpretation Comments POC-Glucose Meter (test 99 mg/dL 70-110 : TE STED AT [facility] code = 1538) [address] [facility], 770 30: 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/Techni alnoso ID = [id number] for BANGURA EMMANUEL Lab Interpretation (test Normal code = 04917-0) [facility] HospitalPOCT[facility]GLUCOSE [id number] 21:59:00 Test Item Value Reference Range Interpretation Comments POC-GLUCOSE METER 99 mg/dL 70-110 : TESTED A T [facility] 6720 ([facility]) (test code = [facility], 1538) [address]: 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/Techni alonso ID = [id number] for BANGURA EMMANUEL POCT-GLUCOSE [id number] 19:06:00 Test Item Value Reference Range Interpretation Comments POC-GLUCOSE METER 183 mg/dL 70-110 H : TESTED A T [facility] 6720 ([facility]) (test code = [facility], 1538) [address]: 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/Techni alonso ID = [id number] for Marion Laboy Gamma Glutamyl Transferase (GGT)2020-09-11 12:24:00 Test Item Value Reference Range Interpretation Comments GGT (test code = 2324-2) 33 U/L 9-64 YEHUDA (test code = YEHUDA) 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 ID - LINDA C Lab Interpretation (test Normal code = 39199-5) [facility] HospitalGAMMA GLUTAMYL TRANSFERASE (GGT)2020-09-11 12:24:00 Test Item Value Reference Range Interpretation Comments GAMMA GLUTAMYL TRANSFERASE (BEAKER) 33 U/L 9-64 (test code = 364) 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 ID - LINDA CCT, PELVIS, WO [id number] 08:55:00Referring; Jacob Dietrich MD Fall, left hip pain. Non diagnostic xray pelvisUnlisted Reason for Exam - Click Yes and Enter Reason Below->NoWill this procedure require oral contrast?->NoOR[facility] : 1990 Sex: FFINAL REPORT CT pelvis without contrast HISTORY: Pelvic trauma, nondiagnostic x-ray COMPARISON: X-rays performed on 09/09/2020 Technique: serial axial imaging was performed without intravenous contrast as per departmental protocol. Multiplanar images are reconstructed and reviewed when indicated. This CT examination is performed using one or more of the following dose reduction techniques: Automated exposure control, adjustment of the mA and /or kV according to patient size, and/or use of iterative reconstruction technique. FINDINGS: No acute fracture is identified. Areas of ossification are noted posterior and medial to the left acetabulum, suggesting either heterotopic ossification or myositis dissecans related to prior trauma. No additional significant bone or joint space abnormality is seen. Surrounding soft tissues appear grossly unremarkable. Specifically, no sizable joint effusion or soft tissue hematoma is identified. Postsurgical changes are visualized within the left lower quadrant bowel. IMPRESSION:1. No acute pelvic trauma.2. Myositis ossificans versus heterotopic ossification posterior and medial to the left acetabulum, indicative of priortrauma. Signed: Vasquez Byrne MDReport Verified Date/Time: 09/11/2020 08:55:18 Reading Location: [facility] B1 C013X Ortho Consult Reading Room [facility] pelvis without IV [id number] 08:55:00Interface, External Ris In - 09/11/2020 8:[address] pelvis wit hout contrast HISTORY: Pelvic trauma, nondiagnostic x-ray COMPARISON: X-rays performed on 09/09/2020 Technique: serial axial imaging was performed without intravenous contrast as per departmental protocol. Multiplanar images are reconstructed and reviewed when indicated. This CT examination is performed using one or more of the following dose reduction techniques: Automated exposure control, adjustment of the mA and /or kV according to patient size, and/or use of iterative reconstruction technique. FINDINGS: No acute fracture is identified. Areas of ossification are noted posterior and medial to the left acetabulum, suggesting either heterotopic ossification or myositis dissecans related to prior trauma. No additional significant bone or joint space abnormality is seen. Surrounding soft tissuesappear grossly unremarkable. Specifically, no sizable joint effusion or soft tissue hematoma is identified. Postsurgical changes are visualized within the left lower quadrant bowel. IMPRESSION:1. No acute pelvic trauma.2. Myositis ossificans versus heterotopic ossification posterior and medial to the left acetabulum, indicative of prior trauma. Signed: Vasquez Byrne MDReport Verified Date/Time: 09/11/2020 08:55:18 Reading Location: [facility] B1 C013X Ortho Consult Reading Room [facility] [id number] 08:15:00 Test Item Value Reference Range Interpretation Comments CYCLOSPORINE BLOOD 111 ng/mL <400 Test perf ormed on eSNF ([employer]) (test code Architec t Immunoassay = 672) system with Chemiluminescen t Microparticle Immunoassay (CM IA) technology. 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 ID - AAHAMIDHepatic function [id number] 06:48:00 Test Item Value Reference Range Interpretation Comments Protein, Total (test 6.4 See_Comment [Autom ated code = 2885-2) message] The system which generated this result transmit ashok reference range : 6.0 - 8.3 gm/dL . The reference range was not u sed to interpret th is result as normal/abnormal . Albumin (test code = 3.6 g/dL 3.5-5 49015-9) Total Bilirubin (test 0.2 mg/dL 0.2-1.2 code = 1975-2) Bilirubin, Direct 0.1 mg/dL 0.1-0.5 (test code = 1968-7) Alkaline Phosphatase 276 U/L 40-150 H (test code = 6768-6) AST (test code = 28 U/L 5-34 1920-8) ALT (test code = 23 U/L 6-55 1742-6) YEHUDA (test code = YEHUDA) 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 ID - DB Lab Interpretation Abnormal (test code = 47082-5) [facility] HospitalHEPATIC FUNCTION [id number] 06:48:00 Test Item Value Reference Range Interpretation Comments TOTAL PROTEIN (BEAKER) (test code = 6.4 gm/dL 6.0-8.3 770) ALBUMIN (BEAKER) (test code = 1145) 3.6 g/dL 3.5-5.0 BILIRUBIN TOTAL (BEAKER) (test code 0.2 mg/dL 0.2-1.2 = 377) BILIRUBIN DIRECT (BEAKER) (test 0.1 mg/dL 0.1-0.5 code = 706) ALKALINE PHOSPHATASE (BEAKER) (test 276 U/L 40-150 H code = 346) AST (SGOT) (BEAKER) (test code = 28 U/L 34 353) ALT (SGPT) (BEAKER) (test code = 23 U/L -55 347) 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 ID - DBBaroberts chapel Metabolic [id number] 06:47:00 Test Item Value Reference Range Interpretation Comments Sodium (test code = 138 meq/L 522-693 8003-2) Potassium (test 4.1 meq/L 3.5-5.1 code = 2823-3) Chloride (test code 106 meq/L 98-107 = 2075-0) CO2 (test code = 22 meq/L 22-29 8-9) BUN (test code = 15 mg/dL 7-21 3094-0) Creatinine (test 0.69 mg/dL 0.57-1.25 code = 2160-0) Glucose (test code 85 mg/dL 70-105 = 2345-7) Calcium (test code 9.2 mg/dL 8.4-10.2 = 46568-4) EGFR (test code = 99 mL/min/1.73 [place] [address]-1) NOT ACCURATE CREATININE CLEARANCE IN PREDICTING GLOMERULAR FILTRATION RATE . ESTIMATED GFR I S NOT APPLICABLE FOR DIALYSIS PATIEN TS. YEHUDA (test code = 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 ID - DB YEHUDA) [facility] HospitalMagnesium2021-04-02 06:47:00 Test Item Value Reference Range Interpretation Comments Magnesium (test code = 1.8 mg/dL 1.6-2.6 25136-0) YEHUDA (test code = YEHUDA) 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 ID - DB Lab Interpretation (test Normal code = 68469-9) [facility] HospitalPhosphorus2021-04-02 06:47:00 Test Item Value Reference Range Interpretation Comments Phosphorus (test code = 4.3 mg/dL 2.3-4.7 2777-1) YEHUDA (test code = YEHUDA) 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 ID - DB Lab Interpretation (test Normal code = 48047-0) [facility] HospitalBASIC METABOLIC [id number] 06:47:00 Test Item Value Reference Range Interpretation Comments SODIUM (BEAKER) 138 meq/L 136-145 (test code = 381) POTASSIUM (BEAKER) 4.1 meq/L 3.5-5.1 (test code = 379) CHLORIDE (BEAKER) 106 meq/L 98-107 (test code = 382) CO2 (BEAKER) (test 22 meq/L code = 355) BLOOD UREA NITROGEN 15 mg/dL 7- (BEAKER) (test code = 354) CREATININE (BEAKER) 0.69 mg/dL 0.57-1.25 (test code = 358) GLUCOSE RANDOM 85 mg/dL 70-105 (BEAKER) (test code = 652) CALCIUM (BEAKER) 9.2 mg/dL 8.4-10.2 (test code = 697) EGFR (BEAKER) (test 99 mL/min/1.73 ESTIMA ASHOK GFR IS code = 1092) sq m NOT ACCURATE CREATININE CLEARANCE IN PREDICTING GLOMERULAR FILTRATION RATE . ESTIMATED GFR I S NOT APPLICABLE FOR DIALYSIS PATIEN TS. 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 ID - [id number] 06:47:00 Test Item Value Reference Range Interpretation Comments MAGNESIUM (BEAKER) (test code = 1.8 mg/dL 1.6-2.6 627) 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 ID - [id number] 06:47:00 Test Item Value Reference Range Interpretation Comments PHOSPHORUS (BEAKER) (test code = 4.3 mg/dL 2.3-4.7 604) 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 ID - DBType and screen, [id number] 06:22:00 Test Item Value Reference Range Interpretation Comments ABO/RH AUTOMATED (BEAKER) (test B POSITIVE code = 2260) Ab Scrn (test code = 890-4) NEGATIVE [facility]2020-09-11 06:04:00 Test Item Value Reference Range Interpretation Comments WBC (test code = 6690-2) 4.9 See_Comment [A utomated message] The system [employer] generated this result transmitted ref erence range: 3.5 - 10 .5 K/L. The refe rence range was not u sed to interpret this result as normal/abnor mal. RBC (test code = 789-8) 4.10 See_Comment [Au tomated message] The system [employer] generated this result transmitted ref erence range: 3.93 - 5 .22 M/L. The refe rence range was not u sed to interpret this result as normal/abnor mal. MCHC (test code = 786-4) 27.8 See_Comment L [A utomated message] The system [employer] generated this result transmitted ref erence range: 32.2 - 3 5.5 GM/DL. The refe rence range was not u sed to interpret this result as normal/abnor mal. Hematocrit (test code = 29.5 % 34.1-44.9 L 4544-3) MCV (test code = 787-2) 72.0 fL 79.4-94.8 L MCH (test code = 785-6) 20.0 pg 25.6-32.2 L RDW (test code = 788-0) 18.8 % 11.7-14.4 H Platelets (test code = 229 See_Comment [Aut omated message] 777-3) The system [employer] generated this result transmitted ref erence range: 150 - 45 0 K/CU MM. The referen ce range was not u sed to interpret this result as normal/abnor mal. MPV (test code = 9.3 fL 9.4-12.3 L 24215-5) nRBC (test code = 413) 0 See_Comment [Aut omated message] The system [employer] generated this result transmitted ref erence range: 0 - 0 /1 00 WBC. The refere nce range was not u sed to interpret this result as normal/abnor mal. Lab Interpretation (test Abnormal code = 56614-1) [facility] (HEMOGRAM ONLY)2020-09-11 06:04:00 Test Item Value Reference Range Interpretation Comments WHITE BLOOD CELL COUNT (BEAKER) 4.9 K/ L 3.5-10.5 (test code = 775) RED BLOOD CELL COUNT (BEAKER) 4.10 M/ L 3.93-5.22 (test code = 761) HEMOGLOBIN (BEAKER) (test code = 8.2 GM/DL 11.2-15.7 L 410) HEMATOCRIT (BEAKER) (test code = 29.5 % 34.1-44.9 L 411) MEAN CORPUSCULAR VOLUME (BEAKER) 72.0 fL 79.4-94.8 L (test code = 753) MEAN CORPUSCULAR HEMOGLOBIN 20.0 pg 25.6-32.2 L (BEAKER) (test code = 751) MEAN CORPUSCULAR HEMOGLOBIN CONC 27.8 GM/DL 32.2-35.5 L (BEAKER) (test code = 752) RED CELL DISTRIBUTION WIDTH 18.8 % 11.7-14.4 H (BEAKER) (test code = 412) PLATELET COUNT (BEAKER) (test 229 K/CU MM 150-450 code = 756) MEAN PLATELET VOLUME (BEAKER) 9.3 fL 9.4-12.3 L (test code = 754) NUCLEATED RED BLOOD CELLS 0 /100 WBC 0-0 (BEAKER) (test code = 413) POCT-GLUCOSE [id number] 22:09:00 Test Item Value Reference Range Interpretation Comments POC-GLUCOSE METER 127 mg/dL 70-110 H : TESTED A T [facility] 6720 (BEAKER) (test code [facility], = 1538) [id number]: 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/Techni alonso ID = [id number] for Kelly Razo POCT-GLUCOSE [id number] 17:25:00 Test Item Value Reference Range Interpretation Comments POC-GLUCOSE METER 94 mg/dL 70-110 : TESTED A T [facility] 6720 (BEAKER) (test code = [facility], 1538) [id number]: 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/Techni alonso ID = [id number] for ASHLEY SOSA Screen, [id number] 13:46:00 Test Item Value Reference Range Interpretation Comments Preg Test, Ur (test code = 2112-1) [facility] [id number] 13:46:00 Test Item Value Reference Range Interpretation Comments TEST URINE (BEAKER) (test Negative code = 583) POCT-GLUCOSE [id number] 12:22:00 Test Item Value Reference Range Interpretation Comments POC-GLUCOSE METER 100 mg/dL 70-110 : TESTED A T [facility] 6720 (BEAKER) (test code = [facility], 1538) [id number]: 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/Techni alonso ID = [id number] for ASHLEY HUMPHREY BASIC METABOLIC [id number] 07:16:00 Test Item Value Reference Range Interpretation Comments SODIUM (BEAKER) 139 meq/L 136-145 (test code = 381) POTASSIUM (BEAKER) 4.5 meq/L 3.5-5.1 (test code = 379) CHLORIDE (BEAKER) 106 meq/L 98-107 (test code = 382) CO2 (BEAKER) (test 25 meq/L 22-29 code = 355) BLOOD UREA NITROGEN 14 mg/dL 7-21 (BEAKER) (test code = 354) CREATININE (BEAKER) 0.70 mg/dL 0.57-1.25 (test code = 358) GLUCOSE RANDOM 81 mg/dL 70-105 (BEAKER) (test code = 652) CALCIUM (BEAKER) 8.7 mg/dL 8.4-10.2 (test code = 697) EGFR (BEAKER) (test 97 mL/min/1.73 ESTIMA ASHOK GFR IS code = 1092) sq m NOT ACCURATE CREATININE CLEARANCE IN PREDICTING GLOMERULAR FILTRATION RATE . ESTIMATED GFR I S NOT APPLICABLE FOR DIALYSIS PATIEN TS. 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 ID - KAY [id number] 07:16:00 Test Item Value Reference Range Interpretation Comments MAGNESIUM (BEAKER) (test code = 1.7 mg/dL 1.6-2.6 627) 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 ID - KAY [id number] 07:16:00 Test Item Value Reference Range Interpretation Comments PHOSPHORUS (BEAKER) (test code = 4.2 mg/dL 2.3-4.7 604) 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 ID - KAY MHEPATIC FUNCTION [id number] 07:16:00 Test Item Value Reference Range Interpretation Comments TOTAL PROTEIN (BEAKER) (test code = 6.1 gm/dL 6.0-8.3 770) ALBUMIN (BEAKER) (test code = 1145) 3.4 g/dL 3.5-5.0 L BILIRUBIN TOTAL (BEAKER) (test code 0.2 mg/dL 0.2-1.2 = 377) BILIRUBIN DIRECT (BEAKER) (test 0.1 mg/dL 0.1-0.5 code = 706) ALKALINE PHOSPHATASE (BEAKER) (test 244 U/L 40-150 H code = 346) AST (SGOT) (BEAKER) (test code = 41 U/L 5-34 H 353) ALT (SGPT) (BEAKER) (test code = 25 U/L 6-55 347) 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 ID - KAY [facility] (HEMOGRAM ONLY)[id number] 06:16:00 Test Item Value Reference Range Interpretation Comments WHITE BLOOD CELL COUNT (BEAKER) 4.8 K/ L 3.5-10.5 (test code = 775) RED BLOOD CELL COUNT (BEAKER) 3.83 M/ L 3.93-5.22 L (test code = 761) HEMOGLOBIN (BEAKER) (test code = 7.6 GM/DL 11.2-15.7 L 410) HEMATOCRIT (BEAKER) (test code = 27.1 % 34.1-44.9 L 411) MEAN CORPUSCULAR VOLUME (BEAKER) 70.8 fL 79.4-94.8 L (test code = 753) MEAN CORPUSCULAR HEMOGLOBIN 19.8 pg 25.6-32.2 L (BEAKER) (test code = 751) MEAN CORPUSCULAR HEMOGLOBIN CONC 28.0 GM/DL 32.2-35.5 L (BEAKER) (test code = 752) RED CELL DISTRIBUTION WIDTH 17.8 % 11.7-14.4 H (BEAKER) (test code = 412) PLATELET COUNT (BEAKER) (test 233 K/CU MM 150-450 code = 756) MEAN PLATELET VOLUME (BEAKER) 10.5 fL 9.4-12.3 (test code = 754) NUCLEATED RED BLOOD CELLS 0 /100 WBC 0-0 (BEAKER) (test code = 413) POCT-GLUCOSE [id number] 00:06:00 Test Item Value Reference Range Interpretation Comments POC-GLUCOSE METER 105 mg/dL 70-110 : TESTED A T [facility] 6720 (BEAKER) (test code = FELICIANO Mtz [facility], 1538) [address]: 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/Techni alonso ID = [id number] for Kristan Butt RAD, HIP, 2-3 VIEWS, LEFT, TO INCL PELVIS WHEN [id number] 20:36:00 Referring; Jacob Dietrich MD Reason for exam:->fall; [facility] 1990 Sex: FFINAL REPORT TECHNIQUE: RAD, HIP, 2-3 VIEWS, LEFT, TO INCL PELVIS WHEN PERFORMED INDICATION: fall; hip pain COMPARISON: None. FINDINGS:Questionable lucency through the posterior acetabular wall on the left. No dislocation. No additional fractures are identified. IMPRESSION:Questionable fracture of the left posterior acetabular wall. Further evaluation with CT ofthe pelvis/left hip is recommended.. Signed: Perry Wiseman MDRbobbi Verified Date/Time: 09/09/2020 20:36:56 Reading Location: [address] Transitional Reading Room XR hip 2 views [id number] 20:36:00Interface, External Ris In - 09/09/2020 8:39 PM CDTFINAL REPORT TECHNIQUE: RAD, HIP, 2-3 VIEWS, LEFT, TO INCL PELVIS WHEN PERFORMED INDICATION: fall; hip pain COMPARISON: None. F INDINGS:Questionable lucency through the posterior acetabular wall on the left. No dislocation. No additional fractures are identified. IMPRESSION:Questionable fracture of the left posterior acetabularwall. Further evaluation with CT of the pelvis/left hip is recommended.. Signed: Perry Wiseman MDReport Verified Date/Time: 09/09/2020 20:36:56 Reading Location: [address] Transitional [facility] [id number] 17:44:00 Test Item Value Reference Range Interpretation Comments POC-GLUCOSE METER 95 mg/dL 70-110 : TESTED A T [facility] 6720 ([employer]) (test code = [facility], 1538) [address]: 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/Techni alonso ID = [id number] for ASHLEY SOSA POCT-GLUCOSE [id number] 12:27:00 Test Item Value Reference Range Interpretation Comments POC-GLUCOSE METER 135 mg/dL 70-110 H : TESTED A T [facility] 6720 ([employer]) (test code = [facility], 1538) [address]: 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/Techni alonso ID = [id number] for CASEY WONGARYASHLEY Jo Hemoglobin [id number] 08:51:00 Test Item Value Reference Range Interpretation Comments Hemoglobin A1C (test code = 4548-4) 6.0 % 4.3-6.1 Lab Interpretation (test code = Normal 86581-6) [facility] [id number] 08:51:00 Test Item Value Reference Range Interpretation Comments HEMOGLOBIN A1C (BEAKER) (test code = 6.0 % 4.3-6.1 368) CYCLOSPORINE [id number] 08:47:00 Test Item Value Reference Range Interpretation Comments CYCLOSPORINE BLOOD 90 ng/mL <400 Test perf ormed on Urbina (BEAKER) (test code = Clive ect Immunoassay 672) system with Chemiluminescen t Microparticle Immunoassay (CM IA) technology. 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 ID - RMMR, ABDOMEN, [id number] 07:37:00Referring; Jacob Dietrich MD Unlisted Reason for Exam - Click Yes and Enter Reason Below->No [facility] : 1990 Sex: FFINAL REPORT MR, ABDOMEN, MRCP HISTORY: Biliary obstruction suspected COMPARISON: Abdominal ultrasound 09/06/2020 TECHNIQUE: MRI of the abdomen with exam tailoredto evaluate the biliary tree and the pancreas. Multiplanar, multisequence images, including heavily T2-weighted MRCP sequences were obtained. FINDINGS: Bile ducts: Mild intrahepatic biliary ductal dilation. Mild biliary ductal dilation of the transplant common duct. Surgical clips limits evaluation ofthe biliary anastomosis, however there is a caliber change at or near the anastomosis, and habematolel common bile duct is nondilated.Liver: Status post liver transplant, no focal hepatic mass, normal signal and contour.Gallbladder: Surgically absent gallbladder.Pancreas: Unremarkable. Additional Findings:Lung bases: Small bilateral pleural effusions with underlying atelectasis.Spleen: UnremarkableAdrenals: UnremarkableKidneys and ureters: Subcentimeter left renal cyst, otherwise unremarkable.Bowel: A single dilated liquid filled loop of jejunum in the right anterior lower quadrant, only partially within the vriof-hb-lysa on the coronal images.Lymph nodes: Unremarkable.Peritoneum: Unremarkable.Vessels:UnremarkableAbdominal wall: Postsurgical changes in the anterior abdominal wall.Bones: Unremarkable. IMPRESSION: Status post orthotopic liver transplant. The biliary anastomosis is partially obscured by artifact from surgical clips, however there is a caliber change from mildly dilated biliary treeto nondilated biliary tree at or near the anastomosis. Consider ERCP follow-up if there is concern for stenosis. A single dilated loop of jejunum in the right anterior lower quadrant, incompletely eval uated, could be related to a bowel anastomosis, focal obstruction not excluded. Signed: Jolie Arrieta MDReport Verified Date/Time: 09/09/2020 07:37:39 Reading Location: [facility] Diagnostic Imaging Reading Room - [place] [address] MR abdomen without IV contrast [id number] 07:37:00Interface, External Ris In - 09/09/2020 7:39 AM CDTFINAL REPORT MR, ABDOMEN,MRCP HISTORY: Biliary obstruction suspected COMPARISON: Abdominal ultrasound 09/06/2020 TECHNIQUE: MRI of the abdomen with exam tailored to evaluate the biliary tree and the pancreas. Multiplanar, multisequence images, including heavily T2-weighted MRCP sequences were obtained. FINDINGS: Bile ducts: Mild intrahepatic biliary ductal dilation. Mild biliary ductal dilation of the transplant common duct.Surgical clips limits evaluation of the biliary anastomosis, however there is a caliber change at ornear the anastomosis, and habematolel common bile duct is nondilated.Liver: Status post liver transplant,no focal hepatic mass, normal signal and contour.Gallbladder: Surgically absent gallbladder.Pancreas: Unremarkable. Additional Findings:Lung bases: Small bilateral pleural effusions with underlying atelectasis.Spleen: UnremarkableAdrenals: UnremarkableKidneys and ureters: Subcentimeter left renal cyst, otherwise unremarkable.Bowel: A single dilated liquid filled loop of jejunum in the right anterior lower quadrant, only partially within the ymobk-jf-pmvs on the coronal images.Lymph nodes: Unremarkable.Peritoneum: Unremarkable.Vessels: UnremarkableAbdominal wall: Postsurgical changes in the anteriorabdominal wall.Bones: Unremarkable. IMPRESSION: Status post orthotopic liver transplant. The biliary anastomosis is partially obscured by artifact from surgical clips, however there is a caliber change from mildly dilated biliary tree to nondilated biliary tree at or near the anastomosis. ConsiderERCP follow-up if there is concern for stenosis. A single dilated loop of jejunum in the right anterior lower quadrant, incompletely evaluated, could be related to a bowel anastomosis, focal obstruction not excluded. Signed: Jolie Arrietaeport Verified Date/Time: 09/09/2020 07:37:39 Reading Location: [facility] Diagnostic Imaging Reading Room - [place] [address] [facility] [id number] 06:32:00 Test Item Value Reference Range Interpretation Comments MAGNESIUM (BEAKER) (test code = 1.5 mg/dL 1.6-2.6 L 627) 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 ID - EV [id number] 06:32:00 Test Item Value Reference Range Interpretation Comments PHOSPHORUS (BEAKER) (test code = 3.7 mg/dL 2.3-4.7 604) 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 ID - EV BHEPATIC FUNCTION [id number] 06:32:00 Test Item Value Reference Range Interpretation Comments TOTAL PROTEIN (BEAKER) (test code = 5.7 gm/dL 6.0-8.3 L 770) ALBUMIN (BEAKER) (test code = 1145) 3.3 g/dL 3.5-5.0 L BILIRUBIN TOTAL (BEAKER) (test code 0.2 mg/dL 0.2-1.2 = 377) BILIRUBIN DIRECT (BEAKER) (test 0.1 mg/dL 0.1-0.5 code = 706) ALKALINE PHOSPHATASE (BEAKER) (test 233 U/L 40-150 H code = 346) AST (SGOT) (BEAKER) (test code = 19 U/L 5-34 353) ALT (SGPT) (BEAKER) (test code = 9 U/L 6-55 347) 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 ID - EV BBASIC METABOLIC [id number] 06:32:00 Test Item Value Reference Range Interpretation Comments SODIUM (BEAKER) 138 meq/L 136-145 (test code = 381) POTASSIUM (BEAKER) 4.1 meq/L 3.5-5.1 (test code = 379) CHLORIDE (BEAKER) 107 meq/L 98-107 (test code = 382) CO2 (BEAKER) (test 24 meq/L 22-29 code = 355) BLOOD UREA NITROGEN 12 mg/dL 7-21 (BEAKER) (test code = 354) CREATININE (BEAKER) 0.70 mg/dL 0.57-1.25 (test code = 358) GLUCOSE RANDOM 84 mg/dL 70-105 (BEAKER) (test code = 652) CALCIUM (BEAKER) 8.7 mg/dL 8.4-10.2 (test code = 697) EGFR (BEAKER) (test 97 mL/min/1.73 ESTIMA ASHOK GFR IS code = 1092) sq m NOT ACCURATE CREATININE CLEARANCE IN PREDICTING GLOMERULAR FILTRATION RATE . ESTIMATED GFR I S NOT APPLICABLE FOR DIALYSIS PATIEN TS. 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 ID - EV BProthrombin time/[id number] 06:02:00 Test Item Value Reference Interpretation Comments Range Protime (test code = 12.7 See_Comment [Autom ated 6772-2) message] The system which generated this result transmitted reference range : 11.9 - 14.2 seconds. The reference range was not used to interpret this result as normal/abnormal . INR (test code = 0.99 See_Comment [Automated 4591-6) message] The system which generated this result transmitted reference range : <=5.90. The reference range was not used to interpret this result as normal/abnormal . YEHUDA (test code = Effective 11/07/2018: YEHDUA) PT Reference Range ChangeNew: 11.9-14.2 Previous: 11.7-14.7 RECOMMENDED COUMADIN/WARFARIN INR THERAPY RANGESSTANDARD DOSE: 2.0-3.0 Includes: PROPHYLAXIS for venous thrombosis, systemic embolization; TREATMENT for venous thrombosis and/or pulmonary embolus.HIGH RISK: Target INR is 2.5-3.5 for patients wiht mechanical heart valves. Lab Interpretation Normal (test code = 84702-8) [facility]HR[facility]/[id number] 06:02:00 Test Item Value Reference Range Interpretation Comments PROTIME (BEAKER) 12.7 seconds 11.9-14.2 (test code = 759) INR (BEAKER) (test 0.99 See_Comment [Automat ed message] code = 370) The system [employer]ine generated this result transmitted ref erence range: <=5.90. The reference range was not used to int erpret this result as normal/abnormal . Effective 11/07/2018: PT Reference Range ChangeNew: 11.9-14.2 Previous: 11.7- 14.7RECOMMENDED COUMADIN/WARFARIN INR THERAPY RANGESSTANDARD DOSE: 2.0-3.0 Includes: PROPHYLAXIS for venous thrombosis, systemic embolization; TREATMENT for venous thrombosis and/or pulmonary embolus.HIGH RISK: Target INR is2.5-3.5 for patients wiht mechanical heart valves.CBC (HEMOGRAM ONLY)2020-09-09 06:01:00 Test Item Value Reference Range Interpretation Comments WHITE BLOOD CELL COUNT (BEAKER) 5.8 K/ L 3.5-10.5 (test code = 775) RED BLOOD CELL COUNT (BEAKER) 3.93 M/ L 3.93-5.22 (test code = 761) HEMOGLOBIN (BEAKER) (test code = 7.7 GM/DL 11.2-15.7 L 410) HEMATOCRIT (BEAKER) (test code = 28.9 % 34.1-44.9 L 411) MEAN CORPUSCULAR VOLUME (BEAKER) 73.5 fL 79.4-94.8 L (test code = 753) MEAN CORPUSCULAR HEMOGLOBIN 19.6 pg 25.6-32.2 L (BEAKER) (test code = 751) MEAN CORPUSCULAR HEMOGLOBIN CONC 26.6 GM/DL 32.2-35.5 L (BEAKER) (test code = 752) RED CELL DISTRIBUTION WIDTH 17.6 % 11.7-14.4 H (BEAKER) (test code = 412) PLATELET COUNT (BEAKER) (test 203 K/CU MM 150-450 code = 756) MEAN PLATELET VOLUME (BEAKER) 9.9 fL 9.4-12.3 (test code = 754) NUCLEATED RED BLOOD CELLS 0 /100 WBC 0-0 (BEAKER) (test code = 413) POCT-GLUCOSE [id number] 00:03:00 Test Item Value Reference Range Interpretation Comments POC-GLUCOSE METER 97 mg/dL 70-110 : TESTED A T [facility] 6720 (BEAKER) (test code = FELICIANO Mtz [facility], 1538) [address]: 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/Techni alonso ID = [id number] for Kristan Chahal CYCLOSPORINE [id number] 12:56:00 Test Item Value Reference Range Interpretation Comments CYCLOSPORINE BLOOD 129 ng/mL <400 Test perf ormed on Urbina (BEAKER) (test code Architec t Immunoassay = 672) system with Chemiluminescen t Microparticle Immunoassay (CM IA) technology. 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 ID - JOSE FPOCT-GLUCOSE [id number] 12:31:00 Test Item Value Reference Range Interpretation Comments POC-GLUCOSE METER 97 mg/dL 70-110 : Notified RN/MD: TESTED (BEAKER) (test code = AT [facility] 6720 [facility] 1538) [facility], [address]: 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/Techni alonso ID = [id number] for Vincenzo na Rhonda BASIC METABOLIC [id number] 06:56:00 Test Item Value Reference Range Interpretation Comments SODIUM (BEAKER) 140 meq/L 136-145 (test code = 381) POTASSIUM (BEAKER) 4.4 meq/L 3.5-5.1 (test code = 379) CHLORIDE (BEAKER) 107 meq/L 98-107 (test code = 382) CO2 (BEAKER) (test 22 meq/L 22-29 code = 355) BLOOD UREA NITROGEN 13 mg/dL 7-21 (BEAKER) (test code = 354) CREATININE (BEAKER) 0.76 mg/dL 0.57-1.25 (test code = 358) GLUCOSE RANDOM 98 mg/dL 70-105 (BEAKER) (test code = 652) CALCIUM (BEAKER) 9.7 mg/dL 8.4-10.2 (test code = 697) EGFR (BEAKER) (test 88 mL/min/1.73 ESTIMA ASHOK GFR IS code = 1092) sq m NOT ACCURATE CREATININE CLEARANCE IN PREDICTING GLOMERULAR FILTRATION RATE . ESTIMATED GFR I S NOT APPLICABLE FOR DIALYSIS PATIEN TS. 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 ID - KAY [id number] 06:56:00 Test Item Value Reference Range Interpretation Comments MAGNESIUM (BEAKER) (test code = 1.7 mg/dL 1.6-2.6 627) 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 ID - KAY [id number] 06:56:00 Test Item Value Reference Range Interpretation Comments PHOSPHORUS (BEAKER) (test code = 4.0 mg/dL 2.3-4.7 604) 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 ID - KAY MHEPATIC FUNCTION [id number] 06:56:00 Test Item Value Reference Range Interpretation Comments TOTAL PROTEIN (BEAKER) (test code = 7.1 gm/dL 6.0-8.3 770) ALBUMIN (BEAKER) (test code = 1145) 4.0 g/dL 3.5-5.0 BILIRUBIN TOTAL (BEAKER) (test code 0.2 mg/dL 0.2-1.2 = 377) BILIRUBIN DIRECT (BEAKER) (test 0.1 mg/dL 0.1-0.5 code = 706) ALKALINE PHOSPHATASE (BEAKER) (test 274 U/L 40-150 H code = 346) AST (SGOT) (BEAKER) (test code = 17 U/L 5-34 353) ALT (SGPT) (BEAKER) (test code = 13 U/L 6-55 347) 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 ID - KAY MCBC (HEMOGRAM ONLY)2020-09-08 06:23:00 Test Item Value Reference Range Interpretation Comments WHITE BLOOD CELL COUNT (BEAKER) 6.1 K/ L 3.5-10.5 (test code = 775) RED BLOOD CELL COUNT (BEAKER) 4.66 M/ L 3.93-5.22 (test code = 761) HEMOGLOBIN (BEAKER) (test code = 9.1 GM/DL 11.2-15.7 L 410) HEMATOCRIT (BEAKER) (test code = 34.4 % 34.1-44.9 411) MEAN CORPUSCULAR VOLUME (BEAKER) 73.8 fL 79.4-94.8 L (test code = 753) MEAN CORPUSCULAR HEMOGLOBIN 19.5 pg 25.6-32.2 L (BEAKER) (test code = 751) MEAN CORPUSCULAR HEMOGLOBIN CONC 26.5 GM/DL 32.2-35.5 L (BEAKER) (test code = 752) RED CELL DISTRIBUTION WIDTH 17.9 % 11.7-14.4 H (BEAKER) (test code = 412) PLATELET COUNT (BEAKER) (test 250 K/CU MM 150-450 code = 756) MEAN PLATELET VOLUME (BEAKER) 9.8 fL 9.4-12.3 (test code = 754) NUCLEATED RED BLOOD CELLS 0 /100 WBC 0-0 (BEAKER) (test code = 413) PROTHROMBIN TIME/[id number] 06:21:00 Test Item Value Reference Range Interpretation Comments PROTIME (BEAKER) 12.9 seconds 11.9-14.2 (test code = 759) INR (BEAKER) (test 1.00 See_Comment [Automat ed message] code = 370) The system [employer] generated this result transmitted ref erence range: <=5.90. The reference range was not used to int erpret this result as normal/abnormal . Effective 11/07/2018: PT Reference Range ChangeNew: 11.9-14.2 Previous: 11.7- 14.7RECOMMENDED COUMADIN/WARFARIN INR THERAPY RANGESSTANDARD DOSE: 2.0-3.0 Includes: PROPHYLAXIS for venous thrombosis, systemic embolization; TREATMENT for venous thrombosis and/or pulmonary embolus.HIGH RISK: Target INR is2.5-3.5 for patients wiht mechanical heart valves.POCT-GLUCOSE [id number] 00:15:00 Test Item Value Reference Range Interpretation Comments POC-GLUCOSE METER 167 mg/dL 70-110 H : TESTED A T [facility] 6720 (REDDY) (test code = [facility], 1538) [address]: 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/Techni alonso ID = [id number] for AIYANA CHILDERS POCT-GLUCOSE [id number] 19:12:00 Test Item Value Reference Range Interpretation Comments POC-GLUCOSE METER 139 mg/dL 70-110 H : Notified RN/MD: (REDDY) (test code = TESTED AT [facility] 6720 1538) [facility], [address]: 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/Techni alonso ID = [id number] for Krystal arlynRhonda westfall SARS-CoV2/RT-PCR (Asymptomatic ONLY)2020-09-07 11:26:00 Test Item Value Reference Range Interpretation Comments SARS-COV2/RT-PCR Negative Not Detected, (test code = Negative, See 20630-3) external report for linked test SARS-COV-2 [facility] NOE PERFORMING LAB (test code = 02170-5) YEHUDA (test code = Negative result for this YEHUDA) test determines that SARS-CoV-2 RNA was not present in the specimen above the Limit of Detection (LOD). However, Negative results do not preclude SARS-CoV-2 infection and should not be used as the sole basis for treatment or patient management decisions. Negative results must be combined with clinical observations, patient history, and epidemiological information. A false negative result may occur if a specimen is improperly collected, transported or handled. A false negative result should be considered if patient's recent exposures or clinical presentation indicate that COVID-19 (SARS-CoV-2) is likely and diagnostic tests for other causes of illness are negative. Re-testing should be considered in cases of suspected false negatives. The limit of detection for this assay is 800 copies/mL. This SARS CoV-2 test is a real-time RT-PCR test intended for the qualitative detection of nucleic acid from SARS-CoV-2 in a nasopharyngeal swab specimen collected from individuals suspected of COVID-19 by their healthcare provider. This test has not been Food and Drug Administration (FDA) cleared or approved. This is a modified version of an approved Emergency Use Authorization (EUA) and is in the process of review by the FDA. Once authorized by the FDA, the issued EUA will be effective until the declaration that circumstances exist justifying the authorization of the emergency use of in vitro diagnostic tests for detection and/or diagnosis of COVID-19 is terminated under Section 564(b)(2) of the Act or the EUA is revoked under Section 564(g) of the Act. Fact Sheet for Healthcare Providers:https://www.[employer].SwipeToSpin/sites/default/f keisha/product/documents/F act_Sheet_HC_Providers_L zww_ZWSY-AtK-6.pdf Fact Sheet for Healthcare Patients:https://www.Anagran.SwipeToSpin/sites/default/fi les/product/documents/Fa ct_Sheet_Patients_Lyra_S ARS-CoV-2.pdf Performing Laboratory:[address] [place] [address] [facility]PO[facility] [id number] 11:26:00 Test Item Value Reference Range Interpretation Comments POC-GLUCOSE METER 223 mg/dL 70-110 H : Notified RN/MD: (REDDY) (test code = TESTED AT [facility] 6720 1538) [facility], [address]: 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/Techni alonso ID = [id number] for Rhonda Moore SARS-COV2/RT-PCR ([facility])2020-09-07 11:26:00 Test Item Value Reference Range Interpretation Comments SARS-COV2/RT-PCR (test Negative Not Detected, Negative, code = 1799018) See external report for linked test SARS-COV-[address] [facility] NOE (test code = 2680984) Negative result for this test determines that SARS-CoV-2 RNA was not present in the specimen above the Limit of Detection (LOD). However, Negative results do not preclude SARS-CoV-2 infection and should not be used as the sole basis for treatment or patient management decisions. Negative results mustbe combined with clinical observations, patient history, and epidemiological information. A false negative result may occur if a specimen is improperly collected, transported or handled. A false negative result should be considered if patient's recent exposures or clinical presentation indicate that COVID-19 (SARS-CoV-2) is likely and diagnostic tests for other causes of illness are negative. Re-testing should be considered in cases of suspected false negatives.The limit of detection for this assay is 800 copies/mL.This SARS CoV-2 test is a real-time RT-PCR test intended for the qualitative detection of nucleic acid from SARS-CoV-2 in a nasopharyngeal swab specimen collected from individuals susp ected of COVID-19 by their healthcare provider.This test has not been Food and Drug Administration (FDA) cleared or approved. This is a modified version of an approved Emergency Use Authorization (EUA) and is in the process of review by the FDA. Once authorized by the FDA, the issued EUA will be effective until the declaration that circumstances exist justifying the authorization of the emergency use of in vitro diagnostic tests for detection and/or diagnosis of COVID-19 is terminated under Section 564(b)(2) of the Act or the EUA is revoked under Section 564(g) of the Act.Fact Sheet for Healthcare Providers:https://www.Proenza Schouer.com/sites/default/files/product/documents/Fact_Shee c_IV_Eyjaqqmvj_Adhc_GQIA-YzK-1.pdfFact Sheet for Healthcare Patients:https://www.[employer]er.SwipeToSpin/sites/default/files/product/ documents/Dwzp_Totlx_Pisbhppw_Otrd_GJLO-OpM-7.pdfPerforming Laboratory:[facility] [facility].[place], [place] [address]BDGWFRAGRCTY LEVEL 2020-09-07 10:44:00 Test Item Value Reference Range Interpretation Comments CYCLOSPORINE BLOOD 241 ng/mL <400 Test perf ormed on eSNF (BEAKER) (test code Architec t Immunoassay = 672) system with Chemiluminescen t Microparticle Immunoassay (CM IA) technology. 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 ID - UMAIR Whaley, TIBC, % sat. (without ferritin)2020-09-07 06:18:00 Test Item Value Reference Range Interpretation Comments Iron (test code = 2498-4) 18.0 ug/dL 40-160 L TIBC (test code = 2500-7) 524 ug/dL 250-450 H Iron % Saturation (test 3 % 20-55 L code = 2502-3) YEHUDA (test code = YEHUDA) 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 ID - KAY Ocampo Lab Interpretation (test Abnormal code = 24963-1) [facility]IRON, TIBC, % SAT. (WITHOUT FERRITIN)2020-09-07 06:18:00 Test Item Value Reference Range Interpretation Comments IRON (BEAKER) (test code = 547) 18.0 ug/dL 40.0-160.0 L TOTAL IRON BINDING CAPACITY 524 ug/dL 250-450 H (BEAKER) (test code = 769) IRON % SATURATION (2) (BEAKER) 3 % 20-55 L (test code = 2590) 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 ID Alley VILLANUEVA [id number] 06:13:00 Test Item Value Reference Range Interpretation Comments Ferritin (test code = 3.96 ng/mL 5-275 L 2276-4) YEHUDA (test code = YEHUDA) 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 ID - KAY M Lab Interpretation (test Abnormal code = 36240-9) [facility] HospitalFERRITIN2021-03-29 06:13:00 Test Item Value Reference Range Interpretation Comments FERRITIN (BEAKER) (test code = 3.96 ng/mL 5.00-275.00 L 361) 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 ID Alley VILLANUEVA MBASIC METABOLIC [id number] 05:43:00 Test Item Value Reference Range Interpretation Comments SODIUM (BEAKER) 140 meq/L 136-145 (test code = 381) POTASSIUM (BEAKER) 4.4 meq/L 3.5-5.1 (test code = 379) CHLORIDE (BEAKER) 106 meq/L 98-107 (test code = 382) CO2 (BEAKER) (test 25 meq/L 22-29 code = 355) BLOOD UREA NITROGEN 14 mg/dL 7-21 (BEAKER) (test code = 354) CREATININE (BEAKER) 0.77 mg/dL 0.57-1.25 (test code = 358) GLUCOSE RANDOM 97 mg/dL 70-105 (BEAKER) (test code = 652) CALCIUM (BEAKER) 9.3 mg/dL 8.4-10.2 (test code = 697) EGFR (BEAKER) (test 87 mL/min/1.73 ESTIMA ASHOK GFR IS code = 1092) sq m NOT ACCURATE CREATININE CLEARANCE IN PREDICTING GLOMERULAR FILTRATION RATE . ESTIMATED GFR I S NOT APPLICABLE FOR DIALYSIS PATIEN TS. 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 ID - KAY [id number] 05:43:00 Test Item Value Reference Range Interpretation Comments MAGNESIUM (BEAKER) (test code = 1.8 mg/dL 1.6-2.6 627) 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 ID - KAY GAWTNMOMGRK2227-48-95 05:43:00 Test Item Value Reference Range Interpretation Comments PHOSPHORUS (BEAKER) (test code = 3.8 mg/dL 2.3-4.7 604) 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 ID - KAY MHEPATIC FUNCTION [id number] 05:43:00 Test Item Value Reference Range Interpretation Comments TOTAL PROTEIN (BEAKER) (test code = 6.9 gm/dL 6.0-8.3 770) ALBUMIN (BEAKER) (test code = 1145) 3.9 g/dL 3.5-5.0 BILIRUBIN TOTAL (BEAKER) (test code 0.2 mg/dL 0.2-1.2 = 377) BILIRUBIN DIRECT (BEAKER) (test 0.1 mg/dL 0.1-0.5 code = 706) ALKALINE PHOSPHATASE (BEAKER) (test 252 U/L 40-150 H code = 346) AST (SGOT) (BEAKER) (test code = 17 U/L 5-34 353) ALT (SGPT) (BEAKER) (test code = 14 U/L 6-55 347) 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 ID - KAY MPROTHROMBIN TIME/[id number] 05:43:00 Test Item Value Reference Range Interpretation Comments PROTIME (BEAKER) 13.2 seconds 11.9-14.2 (test code = 759) INR (BEAKER) (test 1.03 See_Comment [Automat ed message] code = 370) The system [employer] generated this result transmitted ref erence range: <=5.90. The reference range was not used to int erpret this result as normal/abnormal . Effective 11/07/2018: PT Reference Range ChangeNew: 11.9-14.2 Previous: 11.7- 14.7RECOMMENDED COUMADIN/WARFARIN INR THERAPY RANGESSTANDARD DOSE: 2.0-3.0 Includes: PROPHYLAXIS for venous thrombosis, systemic embolization; TREATMENT for venous thrombosis and/or pulmonary embolus.HIGH RISK: Target INR is2.5-3.5 for patients wiht mechanical heart valves.CBC (HEMOGRAM ONLY)2020-09-07 05:19:00 Test Item Value Reference Range Interpretation Comments WHITE BLOOD CELL COUNT (BEAKER) 6.3 K/ L 3.5-10.5 (test code = 775) RED BLOOD CELL COUNT (BEAKER) 4.45 M/ L 3.93-5.22 (test code = 761) HEMOGLOBIN (BEAKER) (test code = 8.6 GM/DL 11.2-15.7 L 410) HEMATOCRIT (BEAKER) (test code = 32.1 % 34.1-44.9 L 411) MEAN CORPUSCULAR VOLUME (BEAKER) 72.1 fL 79.4-94.8 L (test code = 753) MEAN CORPUSCULAR HEMOGLOBIN 19.3 pg 25.6-32.2 L (BEAKER) (test code = 751) MEAN CORPUSCULAR HEMOGLOBIN CONC 26.8 GM/DL 32.2-35.5 L (BEAKER) (test code = 752) RED CELL DISTRIBUTION WIDTH 17.5 % 11.7-14.4 H (BEAKER) (test code = 412) PLATELET COUNT (BEAKER) (test 244 K/CU MM 150-450 code = 756) MEAN PLATELET VOLUME (BEAKER) 9.5 fL 9.4-12.3 (test code = 754) NUCLEATED RED BLOOD CELLS 0 /100 WBC 0-0 (BEAKER) (test code = 413) U/S, DUPLEX, [id number] 02:10:00Referring; Jacob Dietrich MD Reason for exam:->Liver transplant with abdominal pain; eval liver parenchyma and [facility] : 1990 Sex: FFINAL REPORT Exam: Limited abdominal ultrasound. Clinical History: Abdominal pain, liver transplant. Needs to be done with Doppler. Comparison: Limited abdominal ultrasound 07/11/2019. Findings: Sonographic evaluation of the right upper quadrant of the abdomen was performed with Doppler. Liver: Status post liver transplant. 16.6 cm in length at the right midclavicular line. Mildly increased echogenicity with coarse echotexture. No lesion is identified by ultrasound. Main portal vein is patent measuring 1.1 cm in diameter and demonstrates hepatopetal flow. Biliary tree: Common duct 12 mm. No intrahepatic biliary ductal dilatation. Gallbladder: Absent. Pancreas: Partially obscured by bowel gas but the visualized portions are unremarkable. Ascites: None seen. Right kidney: 9 x 5.3 x 5.1 cm with cortical thickness of 0.9 cm. Normal cortical echogenicity. No mass. No shadowing calculus. No hydronephrosis. IVC/Aorta: Segments partially seen. Unremarkable. Color and spectral Doppler evaluation of the hepatic vasculature: The main portal vein and branches are patent and demonstrate hepatopetal flow. The peak systolic velocity in the main portal vein is 39.2 cm/s. The proper, right and left hepatic arteries are patent with normal waveforms. The resistive indices in the proper, right and left hepatic arteries are 0.8, 0.8 and 0.6 respectively.The hepatic confluence, main hepatic vein and branches are patent with normal waveforms. The splenicvein at the pancreatic head and tail was not seen due to obstruction by bowel gas. The splenic artery and vein at the hilum are patent with normal waveforms. Impression:Status post liver transplant.Mildly increased liver echogenicity with coarse echotexture, which may be due to parenchymal disease such as steatosis.Patent vessels.Elevated resistive indices in the proper and right hepatic arteries. Signed: [facility] Verified Date/Time: 09/07/2020 02:10:06 U/S, ABDOMINAL, [id number] 02:10:00Referring; Jacob Dietrich MD Placed separate order for Doppler to be done as wellAbdomen limited area? Add comment if clarification is needed.->LiverReason for exam:- >Abdominal pain, liver transplant. Needs to be done with Doppler [facility] : 1990 Sex: FFINAL REPORT Exam: Limited abdominal ultrasound. Clinical History: Abdominal pain, liver transplant. Needs to be done with Doppler. Comparison: Limited abdominal ultrasound 07/11/2019. Findings: Sonographic evaluation of the right upper quadrant of the abdomen was performed with Doppler. Liver: Status post liver transplant. 16.6 cm in length at the right midclavicular line. Mildly increased echogenicity with coarse echotexture. No lesion is identified by ultrasound. Main portal vein is patent measuring 1.1 cm in diameter and demonstrates hepatopetal flow. Biliary tree: Common duct 12 mm. No intrahepatic biliary ductal dilatation. Gallbladder: Absent. Pancreas: Partially obscured by bowel gas but the visualized portions are unremarkable. Ascites: None seen. Right kidney: 9 x 5.3 x 5.1 cm with cortical thickness of 0.9 cm. Normal cortical echogenicity. No mass. No shadowing calculus. No hydronephrosis. IVC/Aorta: Segments partially seen. Unremarkable. Color and spectral Doppler evaluation of the hepatic vasculature: The main portal vein and branches are patent and demonstrate hepatopetal flow. The peak systolic velocity in the main portal vein is 39.2 cm/s. The proper, right and left hepatic arteries are patent with normal waveforms. The resistive indices in the proper, right and left hepatic arteries are 0.8, 0.8 and 0.6 respectively.The hepatic confluence, main hepatic vein and branches are patent with normal waveforms. The splenicvein at the pancreatic head and tail was not seen due to obstruction by bowel gas. The splenic artery and vein at the hilum are patent with normal waveforms. Impression:Status post liver transplant.Mildly increased liver echogenicity with coarse echotexture, which may be due to parenchymal disease such as steatosis.Patent vessels.Elevated resistive indices in the proper and right hepatic arteries. Signed: [facility] Verified Date/Time: 09/07/2020 02:10:06 US [id number] 02:10:00Interface, External Ris In - 09/07/2020 2:12 AM CDTFINAL REPORT Exam: Limited abdominal ultrasound. Clinical History: Abdominal pain, liver transplant. Needs to be done with Doppler. Comparison: Limited abdominal ultrasound 07/11/2019. Findings: Sonographic evaluation of the right upper quadrant of the abdomen was performed with Doppler. Liver: Status post liver transplant. 16.6 cm in length at the right midclavicular line. Mildly increased echogenicity with coarse echotexture. No lesion is identified by ultrasound. Main portal vein is patent measuring 1.1 cm in diameter and demonstrates hepatopetal flow. Biliary tree: Common duct 12 mm. No intrahepatic biliary ductal dilatation. Gallbladder: Absent. Pancreas: Partially obscured by bowel gas but the visualized portions are unremarkable. Ascites: None seen. Right kidney: 9 x 5.3 x 5.1 cm with cortical thickness of 0.9 cm. Normal cortical echogenicity. No mass. No shadowing calculus. No hydronephrosis. IVC/Aorta: Segments partially seen. Unremarkable. Color and spectral Doppler evaluation of the hepaticvasculature: The main portal vein and branches are patent and demonstrate hepatopetal flow. The peaksystolic velocity in the main portal vein is 39.2 cm/s. The proper, right and left hepatic arteries are patent with normal waveforms. The resistive indices in the proper, right and left hepatic arteries are 0.8, 0.8 and 0.6 respectively. The hepatic confluence, main hepatic vein and branches are patent with normal waveforms. The splenic vein at the pancreatic head and tail was not seen due to obstruction by bowel gas. The splenic artery and vein at the hilum are patent with normal waveforms. Impression:Status post liver transplant.Mildly increased liver echogenicity with coarse echotexture, which may be due to parenchymal disease such as steatosis.Patent vessels.Elevated resistive indices in the proper and right hepatic arteries. Signed: [facility] Verified Date/Time: 09/07/2020 02:10:06 [facility] [id number] 02:10:00Interface, External Ris In - 09/07/2020 2:12 AM CDTFINAL REPORT Exam: Limited abdominal ultrasound. Clinical History: Abdominal pain, liver transplant. Needs to be done with Doppler. Comparison: Limited abdominal ultrasound 07/11/2019. Findings: Sonographic evaluation of the right upper quadrant of the abdomen was performed with Doppler. Liver: Status post liver transplant. 16.6 cm in length at the right midclavicular line. Mildly increased echogenicity with coarse echotexture. No lesion is identified by ultrasound. Main portal vein is patent measuring 1.1 cm in diameter and demonstrates hepatopetal flow. Biliary tree: Common duct 12 mm. No intrahepatic biliary ductal dilatation. Gallbladder: Absent. Pancreas: Partially obscured by bowel gas but the visualized portions are unremarkable. Ascites: None seen. Right kidney: 9 x 5.3 x 5.1 cm with cortical thickness of 0.9 cm. Normal cortical echogenicity. No mass. No shadowing calculus. No hydronephrosis. IVC/Aorta: Segments partially seen. Unremarkable. Color and spectral Doppler evaluation of the hepaticvasculature: The main portal vein and branches are patent and demonstrate hepatopetal flow. The peaksystolic velocity in the main portal vein is 39.2 cm/s. The proper, right and left hepatic arteries are patent with normal waveforms. The resistive indices in the proper, right and left hepatic arteries are 0.8, 0.8 and 0.6 respectively. The hepatic confluence, main hepatic vein and branches are patent with normal waveforms. The splenic vein at the pancreatic head and tail was not seen due to obstruction by bowel gas. The splenic artery and vein at the hilum are patent with normal waveforms. Impression:Status post liver transplant.Mildly increased liver echogenicity with coarse echotexture, which may be due to parenchymal disease such as steatosis.Patent vessels.Elevated resistive indices in the proper and right hepatic arteries. Signed: [facility] Verified Date/Time: 09/07/2020 02:10:06 [facility] [id number] 22:22:00 Test Item Value Reference Range Interpretation Comments Protein, Total (test 7.0 See_Comment [Autom ated code = 2885-2) message] The system which generated this result transmitted reference range : 6.0 - 8.3 gm/dL . The reference range was not used to interpr et this result as normal/abnormal . Albumin (test code = 3.9 g/dL 3.5-5 00607-4) Alkaline Phosphatase 261 U/L 40-150 H (test code = 6768-6) Total Bilirubin (test 0.2 mg/dL 0.2-1.2 code = 1974-2) Sodium (test code = 140 meq/L 844-658 0234-2) Potassium (test code 4.7 meq/L 3.5-5.1 = 2823-3) Chloride (test code = 109 meq/L 98-107 H 2074-0) CO2 (test code = 22 meq/L 22-29 8-9) BUN (test code = 13 mg/dL 7-21 3094-0) Creatinine (test code 0.83 mg/dL 0.57-1.25 = 2160-0) Glucose (test code = 149 mg/dL 70-105 H 2345-7) Calcium (test code = 9.2 mg/dL 8.4-10.2 56095-1) AST (test code = 20 U/L 5-34 1920-8) ALT (test code = 16 U/L 6-55 1742-6) EGFR (test code = 80 mL/min/1.73 [place] [address]-8) m NOT ACCURATE CREATININE CLEARANCE IN PREDICTING GLOMERULAR FILTRATION RATE . ESTIMATED GFR I S NOT APPLICABLE FOR DIALYSIS PATIENTS. YEHUDA (test code = YEHUDA) 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 ID - DBSpecimen slightly lipemic Lab Interpretation Abnormal (test code = 53712-5) [id number]00 Test Item Value Reference Range Interpretation Comments MAGNESIUM (BEAKER) (test code = 1.8 mg/dL 1.6-2.6 627) 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 ID - [id number] 22:22:00 Test Item Value Reference Range Interpretation Comments PHOSPHORUS (BEAKER) (test code = 3.6 mg/dL 2.3-4.7 604) 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 ID - DBCOMPREHENSIVE METABOLIC [id number] 22:22:00 Test Item Value Reference Range Interpretation Comments TOTAL PROTEIN 7.0 gm/dL 6.0-8.3 (BEAKER) (test code = 770) ALBUMIN (BEAKER) 3.9 g/dL 3.5-5.0 (test code = 1145) ALKALINE PHOSPHATASE 261 U/L 40-150 H (BEAKER) (test code = 346) BILIRUBIN TOTAL 0.2 mg/dL 0.2-1.2 (BEAKER) (test code = 377) SODIUM (BEAKER) (test 140 meq/L 136-145 code = 381) POTASSIUM (BEAKER) 4.7 meq/L 3.5-5.1 (test code = 379) CHLORIDE (BEAKER) 109 meq/L 98-107 H (test code = 382) CO2 (BEAKER) (test 22 meq/L 22-29 code = 355) BLOOD UREA NITROGEN 13 mg/dL 7-21 (BEAKER) (test code = 354) CREATININE (BEAKER) 0.83 mg/dL 0.57-1.25 (test code = 358) GLUCOSE RANDOM 149 mg/dL 70-105 H (BEAKER) (test code = 652) CALCIUM (BEAKER) 9.2 mg/dL 8.4-10.2 (test code = 697) AST (SGOT) (BEAKER) 20 U/L 5-34 (test code = 353) ALT (SGPT) (BEAKER) 16 U/L 6-55 (test code = 347) EGFR (BEAKER) (test 80 mL/min/1.73 ESTIMA ASHOK GFR IS code = 1092) sq m NOT ACCURATE CREATININE CLEARANCE IN PREDICTING GLOMERULAR FILTRATION RATE . ESTIMATED GFR I S NOT APPLICABLE FOR DIALYSIS PATIEN TS. 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 ID - DBSpecimen slightly lipemicPROTHROMBIN TIME/[id number] 22:17:00 Test Item Value Reference Range Interpretation Comments PROTIME (BEAKER) 13.3 seconds 11.9-14.2 (test code = 759) INR (BEAKER) (test 1.04 See_Comment [Automat ed message] code = 370) The system [employer] generated this result transmitted ref erence range: <=5.90. The reference range was not used to int erpret this result as normal/abnormal . Effective 11/07/2018: PT Reference Range ChangeNew: 11.9-14.2 Previous: 11.7- 14.7RECOMMENDED COUMADIN/WARFARIN INR THERAPY RANGESSTANDARD DOSE: 2.0-3.0 Includes: PROPHYLAXIS for venous thrombosis, systemic embolization; TREATMENT for venous thrombosis and/or pulmonary embolus.HIGH RISK: Target INR is2.5-3.5 for patients wiht mechanical heart valves.CBC with platelet count + automated [id number] 22:07:00 Test Item Value Reference Range Interpretation Comments WBC (test code = 6690-2) 7.9 See_Comment [A utomated message] The system [employer] generated this result transmitted ref erence range: 3.5 - 10 .5 K/L. The refe rence range was not u sed to interpret this result as normal/abnor mal. RBC (test code = 789-8) 4.46 See_Comment [Au tomated message] The system [employer] generated this result transmitted ref erence range: 3.93 - 5 .22 M/L. The refe rence range was not u sed to interpret this result as normal/abnor mal. MCHC (test code = 786-4) 28.6 See_Comment L [A utomated message] The system [employer]Mine generated this result transmitted ref erence range: 32.2 - 3 5.5 GM/DL. The refe rence range was not u sed to interpret this result as normal/abnor mal. Hematocrit (test code = 31.8 % 34.1-44.9 L 4544-3) MCV (test code = 787-2) 71.3 fL 79.4-94.8 L MCH (test code = 785-6) 20.4 pg 25.6-32.2 L RDW (test code = 788-0) 17.5 % 11.7-14.4 H Platelets (test code = 291 See_Comment [Aut omated message] 777-3) The system [employer]Mine generated this result transmitted ref erence range: 150 - 45 0 K/CU MM. The referen ce range was not u sed to interpret this result as normal/abnor mal. MPV (test code = 9.8 fL 9.4-12.3 71897-5) nRBC (test code = 413) 0 See_Comment [Aut omated message] The system [employer]Mine generated this result transmitted ref erence range: 0 - 0 /1 00 WBC. The refere nce range was not u sed to interpret this result as normal/abnor mal. % Neutros (test code = 72 % 429) % Lymphs (test code = 20 % 430) % Monos (test code = 5 % 431) % Eos (test code = 432) 3 % % Baso (test code = 437) 0 % # Neutros (test code = 5.67 See_Comment [Aut omated message] 670) The system [employer]Mine generated this result transmitted ref erence range: 1.56 - 6 .13 K/L. The refe rence range was not u sed to interpret this result as normal/abnor mal. # Lymphs (test code = 1.54 See_Comment [Auto mated message] 414) The system [employer] generated this result transmitted ref erence range: 1.18 - 3 .74 K/L. The refe rence range was not u sed to interpret this result as normal/abnor mal. # Monos (test code = 0.38 See_Comment H [Autom ated message] 415) The system [employer] generated this result transmitted ref erence range: 0.24 - 0 .36 K/L. The refe rence range was not u sed to interpret this result as normal/abnor mal. # Eos (test code = 416) 0.20 See_Comment [Au tomated message] The system [employer]Mine generated this result transmitted ref erence range: 0.04 - 0 .36 K/L. The refe rence range was not u sed to interpret this result as normal/abnor mal. # Baso (test code = 417) 0.03 See_Comment [A utomated message] The system [employer]Mine generated this result transmitted ref erence range: 0.01 - 0 .08 K/L. The refe rence range was not u sed to interpret this result as normal/abnor mal. Immature 1 % 0-1 Granulocytes-Relative (test code = 2801) Lab Interpretation (test Abnormal code = 42994-1) [facility] W/PLT COUNT & AUTO [id number] 22:07:00 Test Item Value Reference Range Interpretation Comments WHITE BLOOD CELL COUNT (BEAKER) 7.9 K/ L 3.5-10.5 (test code = 775) RED BLOOD CELL COUNT (BEAKER) 4.46 M/ L 3.93-5.22 (test code = 761) HEMOGLOBIN (BEAKER) (test code = 9.1 GM/DL 11.2-15.7 L 410) HEMATOCRIT (BEAKER) (test code = 31.8 % 34.1-44.9 L 411) MEAN CORPUSCULAR VOLUME (BEAKER) 71.3 fL 79.4-94.8 L (test code = 753) MEAN CORPUSCULAR HEMOGLOBIN 20.4 pg 25.6-32.2 L (BEAKER) (test code = 751) MEAN CORPUSCULAR HEMOGLOBIN CONC 28.6 GM/DL 32.2-35.5 L (BEAKER) (test code = 752) RED CELL DISTRIBUTION WIDTH 17.5 % 11.7-14.4 H (BEAKER) (test code = 412) PLATELET COUNT (BEAKER) (test 291 K/CU MM 150-450 code = 756) MEAN PLATELET VOLUME (BEAKER) 9.8 fL 9.4-12.3 (test code = 754) NUCLEATED RED BLOOD CELLS 0 /100 WBC 0-0 (BEAKER) (test code = 413) NEUTROPHILS RELATIVE PERCENT 72 % (BEAKER) (test code = 429) LYMPHOCYTES RELATIVE PERCENT 20 % (BEAKER) (test code = 430) MONOCYTES RELATIVE PERCENT 5 % (BEAKER) (test code = 431) EOSINOPHILS RELATIVE PERCENT 3 % (BEAKER) (test code = 432) BASOPHILS RELATIVE PERCENT 0 % (BEAKER) (test code = 437) NEUTROPHILS ABSOLUTE COUNT 5.67 K/ L 1.56-6.13 (BEAKER) (test code = 670) LYMPHOCYTES ABSOLUTE COUNT 1.54 K/ L 1.18-3.74 (BEAKER) (test code = 414) MONOCYTES ABSOLUTE COUNT (BEAKER) 0.38 K/ L 0.24-0.36 H (test code = 415) EOSINOPHILS ABSOLUTE COUNT 0.20 K/ L 0.04-0.36 (BEAKER) (test code = 416) BASOPHILS ABSOLUTE COUNT (BEAKER) 0.03 K/ L 0.01-0.08 (test code = 417) IMMATURE GRANULOCYTES-RELATIVE 1 % 0-1 PERCENT (BEAKER) (test code = 2801) POCT-GLUCOSE [id number] 21:28:00 Test Item Value Reference Range Interpretation Comments POC-GLUCOSE METER 109 mg/dL 70-110 : TESTED A T [facility] 6720 (BEAKER) (test code = FELICIANO Mtz [facility], 1538) [address]: 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/Techni alonso ID = [id number] for ELIZABETH KIM MISCELLANEOUS LAB [id number] 11:17:00 Test Item Value Reference Range Interpretation Comments SCAN RESULT (test code = 4805247) Miscellaneous lab [id number] 11:17:00Scan ResultQUEST NON-INTERFACED LABCHI [facility] A Antibody, IgG (HS Only)2020-08-03 14:17:00 Test Item Value Reference Range Interpretation Comments Hep A IgG (test code = Reactive Nonreactive A 88843-4) YEHUDA (test code = YEHUDA) 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 ID - AAHAMID Lab Interpretation (test Abnormal code = 57105-2) [facility], [id number] 14:17:00 Test Item Value Reference Range Interpretation Comments HEPATITIS A IGG ANTIBODY (BEAKER) Reactive Nonreactive A (test code = 2797) 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 ID - AAHAMIDHepatitis B surface [id number] 14:14:00 Test Item Value Reference Range Interpretation Comments HBsAg Screen (test code Nonreactive Nonreactive = 5195-3) YEHUDA (test code = YEHUDA) Specimen is considered negative for HBsAg. Lab Interpretation (test Normal code = 64192-9) [facility] B surface [id number] 14:14:00 Test Item Value Reference Range Interpretation Comments Hep B S Ab (test code 19.7 See_Comment H [Auto mated = 42334-7) message] The system which generated this result transmit ashok reference range : <8.0 mIU/mL. e reference range was not used to interpret this result as normal/abnormal . YEHUDA (test code = YEHUDA) 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 ID - AAHAMID Lab Interpretation Abnormal (test code = 81830-9) [facility] antibody, [id number] 14:14:00 Test Item Value Reference Range Interpretation Comments Hep B Core Total Ab Nonreactive Nonreactive (test code = 76030-9) YEHUDA (test code = YEHUDA) 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 ID - AAHAMID Lab Interpretation (test Normal code = 79571-6) [facility] SURFACE [id number] 14:14:00 Test Item Value Reference Range Interpretation Comments HEPATITIS B SURFACE ANTIGEN (2) Nonreactive Nonreactive (BEAKER) (test code = 2585) Specimen is considered negative for HBsAg.HEPATITIS B SURFACE [id number] 14:14:00 Test Item Value Reference Range Interpretation Comments HEPATITIS B SURFACE ANTIBODY 19.7 mIU/mL <8.0 H (BEAKER) (test code = 647) 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 ID - AAHAMIDHEPATITIS B CORE ANTIBODY, [id number] 14:14:00 Test Item Value Reference Range Interpretation Comments HEPATITIS B CORE TOTAL ANTIBODY Nonreactive Nonreactive (BEAKER) (test code = 497) 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 ID - AAHAMIDCYCLOSPORINE [id number] 13:52:00 Test Item Value Reference Range Interpretation Comments CYCLOSPORINE BLOOD 64 ng/mL <400 Test perf ormed on eSNF (BEAKER) (test code = Clive ect Immunoassay 672) system with Chemiluminescen t Microparticle Immunoassay (CM IA) technology. 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 ID - EMERSONHEPATIC FUNCTION [id number] 13:17:00 Test Item Value Reference Range Interpretation Comments TOTAL PROTEIN (BEAKER) (test code = 7.0 gm/dL 6.0-8.3 770) ALBUMIN (BEAKER) (test code = 1145) 4.2 g/dL 3.5-5.0 BILIRUBIN TOTAL (BEAKER) (test code 0.4 mg/dL 0.2-1.2 = 377) BILIRUBIN DIRECT (BEAKER) (test 0.2 mg/dL 0.1-0.5 code = 706) ALKALINE PHOSPHATASE (BEAKER) (test 225 U/L 40-150 H code = 346) AST (SGOT) (BEAKER) (test code = 17 U/L 5-34 353) ALT (SGPT) (BEAKER) (test code = 12 U/L 6-55 347) 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 ID - ADMINBASIC METABOLIC [id number] 13:17:00 Test Item Value Reference Range Interpretation Comments SODIUM (BEAKER) 140 meq/L 136-145 (test code = 381) POTASSIUM (BEAKER) 4.1 meq/L 3.5-5.1 (test code = 379) CHLORIDE (BEAKER) 106 meq/L 98-107 (test code = 382) CO2 (BEAKER) (test 23 meq/L 22-29 code = 355) BLOOD UREA NITROGEN 14 mg/dL 7-21 (BEAKER) (test code = 354) CREATININE (BEAKER) 0.67 mg/dL 0.57-1.25 (test code = 358) GLUCOSE RANDOM 99 mg/dL 70-105 (BEAKER) (test code = 652) CALCIUM (BEAKER) 9.5 mg/dL 8.4-10.2 (test code = 697) EGFR (BEAKER) (test 102 mL/min/1.73 ESTIM ATED GFR IS code = 1092) sq m NOT ACCURATE CREATININE CLEARANCE IN PREDICTING GLOMERULAR FILTRATION RATE . ESTIMATED GFR I S NOT APPLICABLE FOR DIALYSIS PATIEN TS. 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 ID - ADMINCBC W/PLT COUNT & AUTO [id number] 11:55:00 Test Item Value Reference Range Interpretation Comments WHITE BLOOD CELL COUNT (BEAKER) 5.4 K/ L 3.5-10.5 (test code = 775) RED BLOOD CELL COUNT (BEAKER) 4.37 M/ L 3.93-5.22 (test code = 761) HEMOGLOBIN (BEAKER) (test code = 8.8 GM/DL 11.2-15.7 L 410) HEMATOCRIT (BEAKER) (test code = 31.3 % 34.1-44.9 L 411) MEAN CORPUSCULAR VOLUME (BEAKER) 71.6 fL 79.4-94.8 L (test code = 753) MEAN CORPUSCULAR HEMOGLOBIN 20.1 pg 25.6-32.2 L (BEAKER) (test code = 751) MEAN CORPUSCULAR HEMOGLOBIN CONC 28.1 GM/DL 32.2-35.5 L (BEAKER) (test code = 752) RED CELL DISTRIBUTION WIDTH 16.7 % 11.7-14.4 H (BEAKER) (test code = 412) PLATELET COUNT (BEAKER) (test 233 K/CU MM 150-450 code = 756) MEAN PLATELET VOLUME (BEAKER) 9.8 fL 9.4-12.3 (test code = 754) NUCLEATED RED BLOOD CELLS 0 /100 WBC 0-0 (BEAKER) (test code = 413) NEUTROPHILS RELATIVE PERCENT 76 % (BEAKER) (test code = 429) LYMPHOCYTES RELATIVE PERCENT 17 % (BEAKER) (test code = 430) MONOCYTES RELATIVE PERCENT 4 % (BEAKER) (test code = 431) EOSINOPHILS RELATIVE PERCENT 2 % (BEAKER) (test code = 432) BASOPHILS RELATIVE PERCENT 0 % (BEAKER) (test code = 437) NEUTROPHILS ABSOLUTE COUNT 4.09 K/ L 1.56-6.13 (BEAKER) (test code = 670) LYMPHOCYTES ABSOLUTE COUNT 0.92 K/ L 1.18-3.74 L (BEAKER) (test code = 414) MONOCYTES ABSOLUTE COUNT (BEAKER) 0.24 K/ L 0.24-0.36 (test code = 415) EOSINOPHILS ABSOLUTE COUNT 0.13 K/ L 0.04-0.36 (BEAKER) (test code = 416) BASOPHILS ABSOLUTE COUNT (BEAKER) 0.01 K/ L 0.01-0.08 (test code = 417) IMMATURE GRANULOCYTES-RELATIVE 0 % 0-1 PERCENT (BEAKER) (test code = 2801) PROTHROMBIN [id number] 11:54:00 Test Item Value Reference Range Interpretation Comments PROTIME (BEAKER) 13.5 seconds 11.9-14.2 (test code = 759) INR (BEAKER) (test 1.06 See_Comment [Automat ed message] code = 370) The system [employer] generated this result transmitted ref erence range: <=5.90. The reference range was not used to int erpret this result as normal/abnormal . Effective 11/07/2018: PT Reference Range ChangeNew: 11.9-14.2 Previous: 11.7- 14.7RECOMMENDED COUMADIN/WARFARIN INR THERAPY RANGESSTANDARD DOSE: 2.0-3.0 Includes: PROPHYLAXIS for venous thrombosis, systemic embolization; TREATMENT for venous thrombosis and/or pulmonary embolus.HIGH RISK: Target INR is2.5-3.5 for patients wiht mechanical heart valves.TISSUE [id number] 14:29:00Surgical Pathology Report Case: [id number] Authorizing Provider: Claire Brink MD Collected: 07/11/2019 1319 Ordering Location: [address] Med/Surg Received: 07/11/2019 1416 Pathologist: Ashley Kc MD Specimen: Biopsy, Gastric STOMACH, BIOPSY: - OXYNTIC MUCOSA WITH MILD CHRONIC INACTIVE GASTRITIS - NO INTESTINAL METAPLASIA, DYSPLASIA OR MALIGNANCY IS SEEN - NEGATIVE FOR H. PYLORI ORGANISMS Signing Pathologist Direct Phone Line: [phone] signed by Ashley Kc MD on 07/12/2019 at 2:29 [id number]; [id number] Biopsy, gastricSpecimen is received in fixative and designated as "biopsy, gastric" and consists of three pink-ghosh tissue fragments ranging in size from 0.2 to 0.3 cm in greatest dimension. The tissue fragment is entirely submitted into A1. Performed The interpretation of this case included the useof immunohistochemistry or special stains.Warthin- starry stain: Negative for Helicobacter Pylori organismsControl Slides Examined: In-house known positive controls were evaluated along with the test tissue. These control slides run alongside of the patients sample show appropriate staining. Internalpositive and negative controls when available are evaluated Immunohistochemistry technical testing was performed at [facility], Pathology Laboratory where it was developed and itsperformance characteristics were determined. It has not been cleared or approved by the U.S. Food and Drug Administration. The FDA has determined that such clearance or approval is not necessary. The test is used for clinical purposes. It should not be regarded as investigational or for research. Thislaboratory is certified under the Clinical Laboratory Improvement Amendments of 1988 (CLIA-88) as cordelia lified to perform high complexity clinical laboratory testing.[facility], Department of Pathology, [address] [place] [address], [facility], Department of Pathology, [address] [place] [address], Iu.[facility], Department of Pathology, [address] [place] [address], R/S, ABDOMINAL, [id number] 19:39:00 Abdomen limited area? Add comment if clarification is needed.->LiverReason for exam:->RUQ sonogram for gallbladder, liver, CBD. Elevated LFTFINAL REPORT Abdominal ultrasound dated 07/11/2019 Comment: Real-time transabdominal ultrasound of the right upper quadrant abdomen was performed. Liver is normal in size and measures 15 cm in length. [...] MDReport Verified Date/Time: 07/11/2019 19:39:14 Reading Location: [address] Consult Reading Room PREGNANCY SCREEN, [id number] 12:45:00 Test Item Value Reference Range Interpretation Comments TEST URINE (BEAKER) (test Negative code = 583) COMPREHENSIVE METABOLIC [id number] 05:16:00 Test Item Value Reference Range Interpretation Comments TOTAL PROTEIN 6.8 gm/dL 6.0-8.5 (BEAKER) (test code = 770) ALBUMIN (BEAKER) 3.6 g/dL 3.5-5.0 (test code = 1145) ALKALINE PHOSPHATASE 315 U/L 30-115 H (BEAKER) (test code = 346) BILIRUBIN TOTAL 1.0 mg/dL 0.1-1.2 (BEAKER) (test code = 377) SODIUM (BEAKER) (test 137 meq/L 135-148 code = 381) POTASSIUM (BEAKER) 4.0 meq/L 3.6-5.5 (test code = 379) CHLORIDE (BEAKER) 105 meq/L 98-106 (test code = 382) CO2 (BEAKER) (test 21 meq/L 20-29 code = 355) BLOOD UREA NITROGEN 5 mg/dL 10-26 L (BEAKER) (test code = 354) CREATININE (BEAKER) 0.72 mg/dL 0.50-1.20 (test code = 358) GLUCOSE RANDOM 109 mg/dL 70-110 (BEAKER) (test code = 652) CALCIUM (BEAKER) 9.6 mg/dL 8.5-10.5 (test code = 697) AST (SGOT) (BEAKER) 172 U/L 5-40 H (test code = 353) ALT (SGPT) (BEAKER) 84 U/L 5-50 H (test code = 347) EGFR (BEAKER) (test 94 mL/min/1.73 ESTIMA ASHOK GFR IS code = 1092) sq m NOT ACCURATE CREATININE CLEARANCE IN PREDICTING GLOMERULAR FILTRATION RATE . ESTIMATED GFR I S NOT APPLICABLE FOR DIALYSIS PATIEN TS. 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 ID - [id number] 05:05:00 Test Item Value Reference Range Interpretation Comments PROTIME (BEAKER) (test code = 759) 11.6 sec 9.3-12.0 INR (BEAKER) (test code = 370) 1.1 <=5.9 RECOMMENDED COUMADIN/WARFARIN INR THERAPY RANGESSTANDARD DOSE: 2.0 - 3.0 Includes: PROPHYLAXIS forvenous thrombosis, systemic embolization; TREATMENT for venous thrombosis and/or pulmonary embolus.HIGH RISK: Target INR is 2.5-3.5 for patients with mechanical heart valves.Final Information (Auto Output)Final Information (Auto Output)CBC W/PLT COUNT & AUTO [id number] 04:48:00 Test Item Value Reference Range Interpretation Comments WHITE BLOOD CELL COUNT (BEAKER) 4.0 K/ L 4.0-10.0 (test code = 775) RED BLOOD CELL COUNT (BEAKER) 4.36 M/ L 4.00-5.00 (test code = 761) HEMOGLOBIN (BEAKER) (test code = 12.0 GM/DL 12.0-15.5 410) HEMATOCRIT (BEAKER) (test code = 39.0 % 36.0-46.0 411) MEAN CORPUSCULAR VOLUME (BEAKER) 89.4 fL 82.0-99.0 (test code = 753) MEAN CORPUSCULAR HEMOGLOBIN 27.5 pg 27.0-33.0 (BEAKER) (test code = 751) MEAN CORPUSCULAR HEMOGLOBIN CONC 30.8 GM/DL 32.0-36.0 L (BEAKER) (test code = 752) RED CELL DISTRIBUTION WIDTH 16.1 % 12.0-15.0 H (BEAKER) (test code = 412) PLATELET COUNT (BEAKER) (test 110 K/CU MM 150-430 L code = 756) MEAN PLATELET VOLUME (BEAKER) 10.3 fL 6.0-11.5 (test code = 754) NUCLEATED RED BLOOD CELLS 0 /100 WBC 0-0 (BEAKER) (test code = 413) NEUTROPHILS RELATIVE PERCENT 85 % (BEAKER) (test code = 429) LYMPHOCYTES RELATIVE PERCENT 12 % (BEAKER) (test code = 430) MONOCYTES RELATIVE PERCENT 2 % (BEAKER) (test code = 431) EOSINOPHILS RELATIVE PERCENT 0 % (BEAKER) (test code = 432) BASOPHILS RELATIVE PERCENT 0 % (BEAKER) (test code = 437) NEUTROPHILS ABSOLUTE COUNT 3.37 K/ L 1.80-8.00 (BEAKER) (test code = 670) LYMPHOCYTES ABSOLUTE COUNT 0.46 K/ L 1.48-4.50 L (BEAKER) (test code = 414) MONOCYTES ABSOLUTE COUNT (BEAKER) 0.09 K/ L 0.00-1.30 (test code = 415) EOSINOPHILS ABSOLUTE COUNT 0.01 K/ L 0.00-0.50 (BEAKER) (test code = 416) BASOPHILS ABSOLUTE COUNT (BEAKER) 0.01 K/ L 0.00-0.20 (test code = 417) IMMATURE GRANULOCYTES-RELATIVE 1 % 0-0 H PERCENT (BEAKER) (test code = 2801) HEMOGLOBIN AND [id number] 15:40:00 Test Item Value Reference Range Interpretation Comments HEMOGLOBIN (BEAKER) (test code = 11.8 GM/DL 12.0-15.5 L 410) HEMATOCRIT (BEAKER) (test code = 38.5 % 36.0-46.0 411) COMPREHENSIVE METABOLIC [id number] 06:22:00 Test Item Value Reference Range Interpretation Comments TOTAL PROTEIN 5.4 gm/dL 6.0-8.5 L (BEAKER) (test code = 770) ALBUMIN (BEAKER) 3.1 g/dL 3.5-5.0 L (test code = 1145) ALKALINE PHOSPHATASE 287 U/L 30-115 H (BEAKER) (test code = 346) BILIRUBIN TOTAL 1.1 mg/dL 0.1-1.2 (BEAKER) (test code = 377) SODIUM (BEAKER) (test 135 meq/L 135-148 code = 381) POTASSIUM (BEAKER) 3.6 meq/L 3.6-5.5 (test code = 379) CHLORIDE (BEAKER) 106 meq/L 98-106 (test code = 382) CO2 (BEAKER) (test 21 meq/L 20-29 code = 355) BLOOD UREA NITROGEN 3 mg/dL 10-26 L (BEAKER) (test code = 354) CREATININE (BEAKER) 0.67 mg/dL 0.50-1.20 (test code = 358) GLUCOSE RANDOM 89 mg/dL 70-110 (BEAKER) (test code = 652) CALCIUM (BEAKER) 8.2 mg/dL 8.5-10.5 L (test code = 697) AST (SGOT) (BEAKER) 215 U/L 5-40 H (test code = 353) ALT (SGPT) (BEAKER) 78 U/L 5-50 H (test code = 347) EGFR (BEAKER) (test 103 ESTIMATE D GFR IS code = 1092) mL/min/1.73 sq NOT ACCURA TE m CREATININE CLEARANCE IN PREDICTING GLOMERULAR FILTRATION RATE . ESTIMATED GFR I S NOT APPLICABLE FOR DIALYSIS PATIEN TS. 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 ID - [id number] W/PLT COUNT & AUTO [id number] 05:51:00 Test Item Value Reference Range Interpretation Comments WHITE BLOOD CELL COUNT (BEAKER) 3.5 K/ L 4.0-10.0 L (test code = 775) RED BLOOD CELL COUNT (BEAKER) 3.81 M/ L 4.00-5.00 L (test code = 761) HEMOGLOBIN (BEAKER) (test code = 10.6 GM/DL 12.0-15.5 L 410) HEMATOCRIT (BEAKER) (test code = 35.1 % 36.0-46.0 L 411) MEAN CORPUSCULAR VOLUME (BEAKER) 92.1 fL 82.0-99.0 (test code = 753) MEAN CORPUSCULAR HEMOGLOBIN 27.8 pg 27.0-33.0 (BEAKER) (test code = 751) MEAN CORPUSCULAR HEMOGLOBIN CONC 30.2 GM/DL 32.0-36.0 L (BEAKER) (test code = 752) RED CELL DISTRIBUTION WIDTH 16.5 % 12.0-15.0 H (BEAKER) (test code = 412) PLATELET COUNT (BEAKER) (test code 92 K/CU MM 150-430 L = 756) MEAN PLATELET VOLUME (BEAKER) 11.2 fL 6.0-11.5 (test code = 754) NUCLEATED RED BLOOD CELLS (BEAKER) 0 /100 WBC 0-0 (test code = 413) NEUTROPHILS RELATIVE PERCENT 61 % (BEAKER) (test code = 429) LYMPHOCYTES RELATIVE PERCENT 26 % (BEAKER) (test code = 430) MONOCYTES RELATIVE PERCENT 8 % (BEAKER) (test code = 431) EOSINOPHILS RELATIVE PERCENT 5 % (BEAKER) (test code = 432) BASOPHILS RELATIVE PERCENT 0 % (BEAKER) (test code = 437) NEUTROPHILS ABSOLUTE COUNT 2.16 K/ L 1.80-8.00 (BEAKER) (test code = 670) LYMPHOCYTES ABSOLUTE COUNT 0.90 K/ L 1.48-4.50 L (BEAKER) (test code = 414) MONOCYTES ABSOLUTE COUNT (BEAKER) 0.28 K/ L 0.00-1.30 (test code = 415) EOSINOPHILS ABSOLUTE COUNT 0.16 K/ L 0.00-0.50 (BEAKER) (test code = 416) BASOPHILS ABSOLUTE COUNT (BEAKER) 0.01 K/ L 0.00-0.20 (test code = 417) IMMATURE GRANULOCYTES-RELATIVE 0 % 0-0 PERCENT (BEAKER) (test code = 2801) CBC W/AUTO [id number] 06:50:00 Test Item Value Reference Range Interpretation Comments WHITE BLOOD CELL (test code = 3.5 K/MM3 3.8-9.8 L WBC) RED BLOOD CELL (test code = 3.52 M/MM3 3.58-4.97 L RBC) HEMOGLOBIN (test code = HGB) 10.4 G/DL 11.2-14.9 L HEMATOCRIT (test code = HCT) 32.9 % 33.2-43.5 L MEAN CELL VOLUME (test code = 94 fL 80.7-99.1 N MCV) MEAN CELL HGB (test code = MCH) 29.5 pg 27.0-34.1 N MEAN CELL HGB CONCETRATION 31.6 % 32.2-35.7 L (test code = MCHC) RED CELL DISTRIBUTION WIDTH 18.9 % 12.1-15.2 H (test code = RDW) PLATELET COUNT (test code = 81 K/MM3 129-368 L PLT) MEAN PLATELET VOLUME (test code 10.1 fl 7.4-10.4 N = MPV) NEUTROPHIL % (test code = NT%) 71.0 % 43-75 N IMMATURE GRANULOCYTE % (test 1.2 % 0.0-2.0 N code = IG%) LYMPHOCYTE % (test code = LY%) 17.1 % 14-44 N MONOCYTE % (test code = MO%) 6.6 % 4-13 N EOSINOPHIL % (test code = EO%) 3.5 % 0-6 N BASOPHIL % (test code = BA%) 0.6 % 0-2 N NUCLEATED RBC % (test code = 0.0 % 0-1.0 N NRBC%) NEUTROPHIL # (test code = NT#) 2.46 K/mm3 2.0-7.6 N IMMATURE GRANULOCYTE # (test 0.04 x10 3/uL 0-0.03 H code = IG#) LYMPHOCYTE # (test code = LY#) 0.59 K/mm3 1.0-3.8 L MONOCYTE # (test code = MO#) 0.23 K/mm3 0.1-0.8 N EOSINOPHIL # (test code = EO#) 0.12 K/mm3 0.0-0.2 N BASOPHIL # (test code = BA#) 0.02 K/mm3 0.0-0.2 N NUCLEATED RBC # (test code = 0.00 K/mm3 0.0-0.1 N NRBC#) COMPREHENSIVE METABOLIC [id number] 06:49:00 Test Item Value Reference Range Interpretation Comments SODIUM (test code = 135 MMOL/L 137-145 L NA) POTASSIUM (test code = 3.8 MMOL/L 3.5-5.1 N K) CHLORIDE (test code = 105 MMOL/L 98-107 N CL) CARBON DIOXIDE (test 27 MMOL/L 22-30 N code = CO2) ANION GAP (test code = 7 MMOL/L 14-24 L GAP) GLUCOSE (test code = 93 MG/DL 74-106 GLU) BLOOD UREA NITROGEN 8 MG/DL 7-17 N (test code = BUN) GLOMERULAR FILTRATION > 60 Report ing units: RATE (test code = GFR) ml/mi n/1.73 m2 (Modified MDRD Formula)Referen ce Range: > or = 6 0 ml/min/1.73 m2 CREATININE (test code 0.60 MG/DL 0.52-1.04 N = CREAT) TOTAL PROTEIN (test 5.7 G/DL 6.3-8.2 L code = PROT) ALBUMIN (test code = 2.9 G/DL 3.5-5.0 L ALB) CALCIUM (test code = 8.7 MG/DL 8.4-10.2 N CA) BILIRUBIN TOTAL (test 1.6 MG/DL 0.2-1.3 H code = BILT) SGOT/AST (test code = 340 UNITS/L 14-36 H AST) SGPT/ALT (test code = 118 UNITS/L 9-52 H ALT) ALKALINE PHOSPHATASE 415 UNITS/L 38-126 H (test code = ALKP) [id number] 06:49:00 Test Item Value Reference Range Interpretation Comments MAGNESIUM (test code = MAG) 2.0 MG/DL 1.6-2.3 N - MRI BRAIN W/O [id number] 18:40:00 Patient Name: LAMINE DOSHI Unit No: [id number] EXAMS: CPT CODE: [id number] MRI BRAIN W/O CONTRAST [id number] Location: T 18 MRI brain, 01/25/19 COMPARISON EXAM : Head CT exam of 01/24/19 TECHNIQUE: MRI examination of the brain without contrastdone performed on a high field magnet. Multiplanar and multisequence technique performed. CLINICAL HISTORY: Recurrent seizure activity Comparison exam: 01/24/[address] exam FINDINGS: No positive mass- [...] Reported and signed by: Claudia Ayala MD [facility] NAME: LAMINE DOSHI PHYS: [place] [address] : 1990 AGE: 29 SEX: F LOC: Z.621 B PHONE #: [phone] EXAM DATE: 01/25/2019 STATUS: ADM IN FAX #: [phone] RADIOLOGY NO: PAGE 1 Signed Report (CONTINUED) Patient Name: LAMINE DOSHI Unit No: [id number] EXAM S: CPT CODE: [id number] MRI BRAIN W/O CONTRAST 21287 <Continued> CC: Alli Mars MD; Cayla Sevilla MD Technologist: JHON MAYS RT(R)(MR)(CT) Transcrpt Date/Tm/Trnsp: 01/25/2019 (1839) [email or web address] Orig Print D/T: S: 01/25/2019 (1843) [facility] NAME: LAMINE DOSHI PHYS: [place] [address] : 1990 AGE: 29 SEX: F LOC: Z.621 B PHONE #: [phone] EXAM DATE: 01/25/2019 STATUS: ADM IN FAX #: [phone] RADIOLOGY NO: PAGE 2 Signed Report COMPREHENSIVE METABOLIC [id number] 18:39:00 Test Item Value Reference Range Interpretation Comments SODIUM (test code = 133 MMOL/L 137-145 L NA) POTASSIUM (test code = 4.0 MMOL/L 3.5-5.1 N K) CHLORIDE (test code = 103 MMOL/L 98-107 N CL) CARBON DIOXIDE (test 26 MMOL/L 22-30 N code = CO2) ANION GAP (test code = 8 MMOL/L 14-24 L GAP) GLUCOSE (test code = 168 MG/DL 74-106 H GLU) BLOOD UREA NITROGEN 6 MG/DL 7-17 L (test code = BUN) GLOMERULAR FILTRATION > 60 Report ing units: RATE (test code = GFR) ml/mi n/1.73 m2 (Modified MDRD Formula)Referen ce Range: > or = 6 0 ml/min/1.73 m2 CREATININE (test code 0.60 MG/DL 0.52-1.04 N = CREAT) TOTAL PROTEIN (test 6.1 G/DL 6.3-8.2 L code = PROT) ALBUMIN (test code = 3.2 G/DL 3.5-5.0 L ALB) CALCIUM (test code = 8.6 MG/DL 8.4-10.2 N CA) BILIRUBIN TOTAL (test 2.0 MG/DL 0.2-1.3 H code = BILT) SGOT/AST (test code = 590 UNITS/L 14-36 H AST) SGPT/ALT (test code = 151 UNITS/L 9-52 H ALT) ALKALINE PHOSPHATASE 451 UNITS/L 38-126 H (test code = ALKP) [id number] 18:39:00 Test Item Value Reference Range Interpretation Comments ACETAMINOPHEN (test code = < 10.0 MCG/ML 10-30 L ACET) [id number] 18:39:00 Test Item Value Reference Range Interpretation Comments SALICYLATE (test code = DAISY) < 1.0 MG/DL <2.0 - XR CHEST [id number] 14:38:00 Patient Name: LAMINE DOSHI Unit No: [id number] EXAMS: CPT CODE: [id number] XR CHEST 1V 84635 Site ID: [id number] HISTORY: Pneumonia FINDINGS: The lungs are clear and normally expanded. The heart and pulmonary vasculatureis normal. Osseous structures are unremarkable. IMPRESSION: Negative chest X-ray. at 1438 Reported and signed by: Esa Calderon MD CC: Alli Mars MD; Cayla Sevilla MD Technologist: Steven Hanson, RT(R) Transcrpt Date/Tm/Trnsp: 01/25/2019 (1438) [email or web address] Orig Print D/T: S: 01/25/2019 (9698) [facility] NAME: LAMINE DOSHI [id number] [address] PHYS: [email or web address] - [place] [address] : 1990 AGE: 29 SEX: F LOC: Z.621 B PHONE #: [phone] EXAM DATE: 01/25/2019 STATUS:ADM IN FAX #: [phone] RADIOLOGY NO: PAGE 1 Signed Report COMPREHENSIVE METABOLIC [id number] 06:28:00 Test Item Value Reference Range Interpretation Comments SODIUM (test code = 131 MMOL/L 137-145 L NA) POTASSIUM (test code = 3.7 MMOL/L 3.5-5.1 N K) CHLORIDE (test code = 101 MMOL/L 98-107 N CL) CARBON DIOXIDE (test 26 MMOL/L 22-30 N code = CO2) ANION GAP (test code = 8 MMOL/L 14-24 L GAP) GLUCOSE (test code = 86 MG/DL 74-106 GLU) BLOOD UREA NITROGEN 9 MG/DL 7-17 N (test code = BUN) GLOMERULAR FILTRATION > 60 Report ing units: RATE (test code = GFR) ml/mi n/1.73 m2 (Modified MDRD Formula)Referen ce Range: > or = 6 0 ml/min/1.73 m2 CREATININE (test code 0.50 MG/DL 0.52-1.04 L = CREAT) TOTAL PROTEIN (test 5.7 G/DL 6.3-8.2 L code = PROT) ALBUMIN (test code = 2.9 G/DL 3.5-5.0 L ALB) CALCIUM (test code = 8.6 MG/DL 8.4-10.2 N CA) BILIRUBIN TOTAL (test 2.8 MG/DL 0.2-1.3 H code = BILT) SGOT/AST (test code = 763 UNITS/L 14-36 H AST) SGPT/ALT (test code = 160 UNITS/L 9-52 H ALT) ALKALINE PHOSPHATASE 456 UNITS/L 38-126 H (test code = ALKP) LIPID PROFILE (CORONARY RISK)2019-01-25 06:28:00 Test Item Value Reference Range Interpretation Comments TRIGLYCERIDES (test 129 MG/DL TRIGLYCE RIDES code = TRIG) REFERENCE RANGE:Normal: < 150 mg/dLBorderline High: 150-199 mg/dLHi gh: 200-499 mg/dLVe ry High: >=500 mg/ dL CHOLESTEROL (test code 171 MG/DL <200 = CHOL) HDL CHOLESTEROL (test 77 MG/DL 40-59 H code = HDL) LIPOPROTEIN LDL (test 68 MG/DL 0-99 N code = LDL) OPTIMAL........ .<100 mg/dLNEAR OPTIMAL/ABOVE OPTIMAL........ .100-12 9 mg/dL BORDERLINE HIGH.........13 0-159 mg/dL HIGH.........16 0-189 mg/dL VERY HIGH...... ...>/= 190 mg/dL [id number] 06:28:00 Test Item Value Reference Range Interpretation Comments PHOSPHOROUS (test code = PHOS) 2.9 MG/DL 2.5-4.5 [id number] 06:28:00 Test Item Value Reference Range Interpretation Comments MAGNESIUM (test code = MAG) 1.4 MG/DL 1.6-2.3 L THYROID STIMULATING [id number] 06:28:00 Test Item Value Reference Range Interpretation Comments THYROID STIMULATING 6.070 MIU/L 0.465-4.68 H Please b e aware that HORMONE (test code = bias re sults for TSH TSH) may occur forpa tient who are taking Biotin suppleme nts. COMPREHENSIVE METABOLIC [id number] 06:10:00 Test Item Value Reference Range Interpretation Comments SODIUM (test code = 131 MMOL/L 137-145 L NA) POTASSIUM (test code = 3.7 MMOL/L 3.5-5.1 N K) CHLORIDE (test code = 101 MMOL/L 98-107 N CL) CARBON DIOXIDE (test 26 MMOL/L 22-30 N code = CO2) ANION GAP (test code = 8 MMOL/L 14-24 L GAP) GLUCOSE (test code = 86 MG/DL 74-106 GLU) BLOOD UREA NITROGEN 9 MG/DL 7-17 N (test code = BUN) GLOMERULAR FILTRATION > 60 Report ing units: RATE (test code = GFR) ml/mi n/1.73 m2 (Modified MDRD Formula)Referen ce Range: > or = 6 0 ml/min/1.73 m2 CREATININE (test code 0.50 MG/DL 0.52-1.04 L = CREAT) TOTAL PROTEIN (test 5.7 G/DL 6.3-8.2 L code = PROT) ALBUMIN (test code = 2.9 G/DL 3.5-5.0 L ALB) CALCIUM (test code = 8.6 MG/DL 8.4-10.2 N CA) BILIRUBIN TOTAL (test 2.8 MG/DL 0.2-1.3 H code = BILT) SGOT/AST (test code = 763 UNITS/L 14-36 H AST) SGPT/ALT (test code = 160 UNITS/L 9-52 H ALT) ALKALINE PHOSPHATASE 456 UNITS/L 38-126 H (test code = ALKP) LIPID PROFILE (CORONARY RISK)2019-01-25 06:10:00 Test Item Value Reference Range Interpretation Comments TRIGLYCERIDES (test 129 MG/DL TRIGLYCE RIDES code = TRIG) REFERENCE RANGE:Normal: < 150 mg/dLBorderline High: 150-199 mg/dLHi gh: 200-499 mg/dLVe ry High: >=500 mg/ dL CHOLESTEROL (test code 171 MG/DL <200 = CHOL) HDL CHOLESTEROL (test 77 MG/DL 40-59 H code = HDL) LIPOPROTEIN LDL (test 68 MG/DL 0-99 N code = LDL) OPTIMAL........ .<100 mg/dLNEAR OPTIMAL/ABOVE OPTIMAL........ .100-12 9 mg/dL BORDERLINE HIGH.........13 0-159 mg/dL HIGH.........16 0-189 mg/dL VERY HIGH...... ...>/= 190 mg/dL [id number] 06:10:00 Test Item Value Reference Range Interpretation Comments PHOSPHOROUS (test code = PHOS) 2.9 MG/DL 2.5-4.5 [id number] 06:10:00 Test Item Value Reference Range Interpretation Comments MAGNESIUM (test code = MAG) 1.4 MG/DL 1.6-2.3 L THYROID STIMULATING [id number] 06:10:00 Test Item Value Reference Range Interpretation Comments THYROID STIMULATING HORMONE (test code MIU/L 0.465-4.68 = TSH) COMPREHENSIVE METABOLIC [id number] 06:08:00 Test Item Value Reference Range Interpretation Comments SODIUM (test code = 131 MMOL/L 137-145 L NA) POTASSIUM (test code = 3.7 MMOL/L 3.5-5.1 N K) CHLORIDE (test code = 101 MMOL/L 98-107 N CL) CARBON DIOXIDE (test 26 MMOL/L 22-30 N code = CO2) ANION GAP (test code = 8 MMOL/L 14-24 L GAP) GLUCOSE (test code = 86 MG/DL 74-106 GLU) BLOOD UREA NITROGEN 9 MG/DL 7-17 N (test code = BUN) GLOMERULAR FILTRATION > 60 Report ing units: RATE (test code = GFR) ml/mi n/1.73 m2 (Modified MDRD Formula)Referen ce Range: > or = 6 0 ml/min/1.73 m2 CREATININE (test code 0.50 MG/DL 0.52-1.04 L = CREAT) TOTAL PROTEIN (test 5.7 G/DL 6.3-8.2 L code = PROT) ALBUMIN (test code = 2.9 G/DL 3.5-5.0 L ALB) CALCIUM (test code = 8.6 MG/DL 8.4-10.2 N CA) BILIRUBIN TOTAL (test 2.8 MG/DL 0.2-1.3 H code = BILT) SGOT/AST (test code = 763 UNITS/L 14-36 H AST) SGPT/ALT (test code = 160 UNITS/L 9-52 H ALT) ALKALINE PHOSPHATASE 456 UNITS/L 38-126 H (test code = ALKP) LIPID PROFILE (CORONARY RISK)[id number] 06:08:00 Test Item Value Reference Range Interpretation Comments TRIGLYCERIDES (test 129 MG/DL TRIGLYCE RIDES code = TRIG) REFERENCE RANGE:Normal: < 150 mg/dLBorderline High: 150-199 mg/dLHi gh: 200-499 mg/dLVe ry High: >=500 mg/ dL CHOLESTEROL (test code 171 MG/DL <200 = CHOL) HDL CHOLESTEROL (test 77 MG/DL 40-59 H code = HDL) LIPOPROTEIN LDL (test MG/DL 0-99 code = LDL) [id number] 06:08:00 Test Item Value Reference Range Interpretation Comments PHOSPHOROUS (test code = PHOS) 2.9 MG/DL 2.5-4.5 [id number] 06:08:00 Test Item Value Reference Range Interpretation Comments MAGNESIUM (test code = MAG) 1.4 MG/DL 1.6-2.3 L THYROID STIMULATING [id number] 06:08:00 Test Item Value Reference Range Interpretation Comments THYROID STIMULATING HORMONE (test code MIU/L 0.465-4.68 = TSH) GLYCOSYLATED HEMOGLOBIN [id number] 06:05:00 Test Item Value Reference Range Interpretation Comments GLYCOSYLATED 5.3 % 4.8-5.9 N Any condition t hat HEMOGLOBIN (HA1C) shortens e rythocyte (test code = survival or dec reasesmean GLYHGB) erythrocyte age (e.g., recovery from a cute blood loss,hemolytic anemia) will falsely lo wer HGBA1c resultsregardle ss of the method used. H GBA1c results from [facility] HbSS, HbCC, and HbSc must be interpreted with cautiongiven th e pathological pr ocesses, including anemia,increase d red cell turnover, trans fusion requirements, thatadversely i mpact HGBA1c as a mar ker of long-term glycemiccontrol . Alternative for ms of testing such as fructosaminesho uld be considered for these patients. MEAN BLOOD GLUCOSE 105 MG/DL 70-110 N (test code = MBG) COMPREHENSIVE METABOLIC [id number] 06:04:00 Test Item Value Reference Range Interpretation Comments SODIUM (test code = 131 MMOL/L 137-145 L NA) POTASSIUM (test code = 3.7 MMOL/L 3.5-5.1 N K) CHLORIDE (test code = 101 MMOL/L 98-107 N CL) CARBON DIOXIDE (test 26 MMOL/L 22-30 N code = CO2) ANION GAP (test code = 8 MMOL/L 14-24 L GAP) GLUCOSE (test code = 86 MG/DL 74-106 GLU) BLOOD UREA NITROGEN 9 MG/DL 7-17 N (test code = BUN) GLOMERULAR FILTRATION > 60 Report ing units: RATE (test code = GFR) ml/mi n/1.73 m2 (Modified MDRD Formula)Referen ce Range: > or = 6 0 ml/min/1.73 m2 CREATININE (test code 0.50 MG/DL 0.52-1.04 L = CREAT) TOTAL PROTEIN (test 5.7 G/DL 6.3-8.2 L code = PROT) ALBUMIN (test code = 2.9 G/DL 3.5-5.0 L ALB) CALCIUM (test code = 8.6 MG/DL 8.4-10.2 N CA) BILIRUBIN TOTAL (test 2.8 MG/DL 0.2-1.3 H code = BILT) SGOT/AST (test code = UNITS/L 14-36 AST) SGPT/ALT (test code = 160 UNITS/L 9-52 H ALT) ALKALINE PHOSPHATASE 456 UNITS/L 38-126 H (test code = ALKP) LIPID PROFILE (CORONARY RISK)2019-01-25 06:04:00 Test Item Value Reference Range Interpretation Comments TRIGLYCERIDES (test 129 MG/DL TRIGLYCE RIDES code = TRIG) REFERENCE RANGE:Normal: < 150 mg/dLBorderline High: 150-199 mg/dLHi gh: 200-499 mg/dLVe ry High: >=500 mg/ dL CHOLESTEROL (test code 171 MG/DL <200 = CHOL) HDL CHOLESTEROL (test 77 MG/DL 40-59 H code = HDL) LIPOPROTEIN LDL (test MG/DL 0-99 code = LDL) [id number] 06:04:00 Test Item Value Reference Range Interpretation Comments PHOSPHOROUS (test code = PHOS) 2.9 MG/DL 2.5-4.5 [id number] 06:04:00 Test Item Value Reference Range Interpretation Comments MAGNESIUM (test code = MAG) 1.4 MG/DL 1.6-2.3 L THYROID STIMULATING [id number] 06:04:00 Test Item Value Reference Range Interpretation Comments THYROID STIMULATING HORMONE (test code MIU/L 0.465-4.68 = TSH) LACTIC [id number] 05:46:00 Test Item Value Reference Range Interpretation Comments LACTIC ACID (test code = LACT) 1.8 MMOL/L 0.7-2.1 N CBC W/AUTO [id number] 05:37:00 Test Item Value Reference Range Interpretation Comments WHITE BLOOD CELL (test code = 4.3 K/MM3 3.8-9.8 N WBC) RED BLOOD CELL (test code = 3.72 M/MM3 3.58-4.97 N RBC) HEMOGLOBIN (test code = HGB) 10.9 G/DL 11.2-14.9 L HEMATOCRIT (test code = HCT) 34.2 % 33.2-43.5 N MEAN CELL VOLUME (test code = 92 fL 80.7-99.1 N MCV) MEAN CELL HGB (test code = MCH) 29.3 pg 27.0-34.1 N MEAN CELL HGB CONCETRATION 31.9 % 32.2-35.7 L (test code = MCHC) RED CELL DISTRIBUTION WIDTH 19.0 % 12.1-15.2 H (test code = RDW) PLATELET COUNT (test code = 71 K/MM3 129-368 L PLT) MEAN PLATELET VOLUME (test code 8.9 fl 7.4-10.4 N = MPV) NEUTROPHIL % (test code = NT%) 78.7 % 43-75 H IMMATURE GRANULOCYTE % (test 0.7 % 0.0-2.0 N code = IG%) LYMPHOCYTE % (test code = LY%) 10.3 % 14-44 L MONOCYTE % (test code = MO%) 7.5 % 4-13 N EOSINOPHIL % (test code = EO%) 2.3 % 0-6 N BASOPHIL % (test code = BA%) 0.5 % 0-2 N NUCLEATED RBC % (test code = 0.0 % 0-1.0 N NRBC%) NEUTROPHIL # (test code = NT#) 3.36 K/mm3 2.0-7.6 N IMMATURE GRANULOCYTE # (test 0.03 x10 3/uL 0-0.03 N code = IG#) LYMPHOCYTE # (test code = LY#) 0.44 K/mm3 1.0-3.8 L MONOCYTE # (test code = MO#) 0.32 K/mm3 0.1-0.8 N EOSINOPHIL # (test code = EO#) 0.10 K/mm3 0.0-0.2 N BASOPHIL # (test code = BA#) 0.02 K/mm3 0.0-0.2 N NUCLEATED RBC # (test code = 0.00 K/mm3 0.0-0.1 N NRBC#) URINALYSIS [id number] 04:29:00 Test Item Value Reference Range Interpretation Comments UA COLOR (test code = YELLOW YELLOW COLU) UA APPEARANCE (test code SLIGHT CLOUDY CLEAR = APPU) UA GLUCOSE DIPSTICK (test NORMAL MG/DL NORMAL code = DGLUU) UA BILIRUBIN DIPSTICK NEGATIVE MG/DL NEGATIVE (test code = BILU) UA KETONE DIPSTICK (test NEGATIVE MG/DL NEGATIVE code = KETU) UA SPECIFIC GRAVITY (test 1.010 1.003-1.030 N code = SGU) UA BLOOD DIPSTICK (test 250 Jeferson/mm3 NEGATIVE A code = SAEID) UA PH DIPSTICK (test code 8.0 5.0-9.0 N = DARRELL) UA PROTEIN DIPSTICK (test 15 MG/DL NEGATIVE code = PROU) UA UROBILINIOGEN DIPSTICK 4 MG/DL NORMAL A (test code = URO) UA NITRITE DIPSTICK (test POSITIVE NEGATIVE A code = TIMMY) UA LEUKOCYTE ESTERASE 500 /mm3 NEGATIVE A DIPSTICK (test code = LEUU) UA CULTURE NEEDED? (test YES,WBC>10 & EPI<25 Culture Chk code = UACULT) Criteria SOURCE OF URINE: CLEAN CATCHUA [id number] 04:29:00 Test Item Value Reference Range Interpretation Comments UA RBC (test code = RBCU) 3-5 RBC/HPF 0-3 A UA WBC (test code = XWBCU) 10-20 WBC/HPF 0-5 A UA EPITHELIAL CELLS (test MODERATE EPI/HPF FEW A code = EPIU) UA BACTERIA (test code = MANY NONE A XBACU) SOURCE OF URINE: CLEAN CATCHURINALYSIS [id number] 03:56:00 Test Item Value Reference Range Interpretation Comments UA COLOR (test code = COLU) YELLOW YELLOW UA APPEARANCE (test code = SLIGHT CLOUDY CLEAR APPU) UA GLUCOSE DIPSTICK (test code NORMAL MG/DL NORMAL = DGLUU) UA BILIRUBIN DIPSTICK (test NEGATIVE MG/DL NEGATIVE code = BILU) UA KETONE DIPSTICK (test code NEGATIVE MG/DL NEGATIVE = KETU) UA SPECIFIC GRAVITY (test code 1.010 1.003-1.030 N = SGU) UA BLOOD DIPSTICK (test code = 250 Jeferson/mm3 NEGATIVE A SAEID) UA PH DIPSTICK (test code = 8.0 5.0-9.0 N DARRELL) UA PROTEIN DIPSTICK (test code 15 MG/DL NEGATIVE = PROU) UA UROBILINIOGEN DIPSTICK 4 MG/DL NORMAL A (test code = URO) UA NITRITE DIPSTICK (test code POSITIVE NEGATIVE A = TIMMY) UA LEUKOCYTE ESTERASE DIPSTICK 500 /mm3 NEGATIVE A (test code = LEUU) UA CULTURE NEEDED? (test code Criteria Culture Chk = UACULT) SOURCE OF URINE: CLEAN CATCHUA [id number] 03:56:00 Test Item Value Reference Range Interpretation Comments UA RBC (test code = RBCU) RBC/HPF 0-3 UA WBC (test code = XWBCU) WBC/HPF 0-5 UA EPITHELIAL CELLS (test code = EPI/HPF FEW EPIU) UA BACTERIA (test code = XBACU) NONE SOURCE OF URINE: CLEAN CATCHDRUGS OF ABUSE SCREEN [id number] 03:56:00 Test Item Value Reference Range Interpretation Comments UR COCAINE (test code = NEGATIVE NEGATIVE Cut off Value: 300 COCAU) ng/mL UR CANNABINOIDS (THC) NEGATIVE NEGATIVE Cut of f Value: 50 (test code = CANU) ng/mL UR AMPHETAMINE (test NEGATIVE NEGATIVE Cut off Value: 1000 code = AMPHU) ng/mL UR BARBITURATE QUAL POSITIVE NEGATIVE A This is a Screening (test code = BARBQLU) test a nd the Results are to be used for medical purpose s only (No confirmatio n for Positive result s)Cut off Value: 200 ng/mL UR BENZODIAZEPINE (test NEGATIVE NEGATIVE Cut off Value: 200 code = BENZU) ng/mL UR OPIATES QUAL (test POSITIVE NEGATIVE Cut of f Value: 300 code = OPIAQLU) ng/mL UR PHENCYCLIDINE (PCP) NEGATIVE NEGATIVE Cut o ff Value: 25 (test code = PHENCU) ng/mL URINALYSIS [id number] 03:56:00 Test Item Value Reference Range Interpretation Comments UA COLOR (test code = COLU) YELLOW YELLOW UA APPEARANCE (test code = SLIGHT CLOUDY CLEAR APPU) UA GLUCOSE DIPSTICK (test code NORMAL MG/DL NORMAL = DGLUU) UA BILIRUBIN DIPSTICK (test NEGATIVE MG/DL NEGATIVE code = BILU) UA KETONE DIPSTICK (test code NEGATIVE MG/DL NEGATIVE = KETU) UA SPECIFIC GRAVITY (test code 1.010 1.003-1.030 N = SGU) UA BLOOD DIPSTICK (test code = 250 Jeferson/mm3 NEGATIVE A SAEID) UA PH DIPSTICK (test code = 8.0 5.0-9.0 N DARRELL) UA PROTEIN DIPSTICK (test code 15 MG/DL NEGATIVE = PROU) UA UROBILINIOGEN DIPSTICK 4 MG/DL NORMAL A (test code = URO) UA NITRITE DIPSTICK (test code POSITIVE NEGATIVE A = TIMMY) UA LEUKOCYTE ESTERASE DIPSTICK 500 /mm3 NEGATIVE A (test code = LEUU) UA CULTURE NEEDED? (test code Criteria Culture Chk = UACULT) SOURCE OF URINE: CLEAN CATCHUA [id number] 03:56:00 Test Item Value Reference Range Interpretation Comments UA RBC (test code = RBCU) RBC/HPF 0-3 UA WBC (test code = XWBCU) WBC/HPF 0-5 UA EPITHELIAL CELLS (test code = EPI/HPF FEW EPIU) UA BACTERIA (test code = XBACU) NONE SOURCE OF URINE: CLEAN CATCHDRUGS OF ABUSE SCREEN [id number] 03:54:00 Test Item Value Reference Range Interpretation Comments UR COCAINE (test code = NEGATIVE NEGATIVE Cut off Value: 300 COCAU) ng/mL UR CANNABINOIDS (THC) NEGATIVE NEGATIVE Cut of f Value: 50 (test code = CANU) ng/mL UR AMPHETAMINE (test NEGATIVE NEGATIVE Cut off Value: 1000 code = AMPHU) ng/mL UR BARBITURATE QUAL POSITIVE NEGATIVE A This is a Screening (test code = BARBQLU) test a nd the Results are to be used for medical purpose s only (No confirmatio n for Positive result s)Cut off Value: 200 ng/mL UR BENZODIAZEPINE (test NEGATIVE NEGATIVE Cut off Value: 200 code = BENZU) ng/mL UR OPIATES QUAL (test NEGATIVE code = OPIAQLU) UR PHENCYCLIDINE (PCP) NEGATIVE NEGATIVE Cut o ff Value: 25 (test code = PHENCU) ng/mL - CT ABD PELVIS W/O [id number] 00:00:00 Patient Name: LAMINE DOSHI Unit No: [id number] EXAMS: CPT CODE: [id number] CT ABD PELVIS W/O CONT 46344 Dictation location: H37. CT ABDOMEN AND PELVIS [...] without listhesis. Mild lower lumbar spondylosis. IMPRESSION: S ignificantly low attenuation throughout the liver likely relates to steatosis. Cholecystectomy. Gastric bypass. The appendix. [facility] NAME: LAMINE DOSHI [id number] PHYS: [place] [address] : 1990 AGE: 29 SEX: F LOC: Z.621 B PHONE #: [phone] EXAM DATE: 01/24/2019 STATUS: ADM IN FAX #: [phone] RAD #: D/C DT PAGE 1 Signed Report (CONTINUED) Patient Name: LAMINE DOSHI Unit No: [id number] EXAMS: CPT CODE: [id number] CT ABD PELVIS W/O CONT 50463 <Continued> at 0000 Reported and signed by: Luz Elena Rodriguez MD CC: Alli Mars MD; Cayla Sevilla MD Technologist: Taryn Gandara RT(R)(CT); Donald Valencia CTDI: DLP: Trnscrpt: 01/25/2019 (0000) [email or web address] [facility] NAME: LAMINE DOSHI [id number] PHYS: [place] [address] : 1990 AGE: 29 SEX: F LOC: Z.621 B PHONE #: [phone] EXAM DATE: 01/24/2019 STATUS: ADM IN FAX #: [phone] RAD #: D/C DT PAGE 2 Signed Report Patient Name: LAMINE DOSHI Unit No: [id number] EXAMS: CPT CODE: [id number] CT ABD PELVIS W/O CONT [id number] <Continued> Orig Print D/T: S: 01/25/2019 (0003) [facility] NAME: LAMINE DOSHI [id number] PHYS: [place] [address] : 1990 AGE: 29 SEX: F LOC: Z.621 B PHONE #: [phone] EXAM DATE: 01/24/2019 STATUS: ADM IN FAX #:[phone] RAD #: D/C DT PAGE 3 Signed ReportACUTE HEPATITIS [id number] 19:51:00 Test Item Value Reference Range Interpretation Comments AB HEPATITIS A IGM (test code = NEGATIVE NONREACTIVE HAVMAB) AG HEPATITIS B SURFACE (test code = NEGATIVE NONREACTIVE HBSAG) AB HEPATITIS B CORE IGM (test code = NEGATIVE NONREACTIVE HBCMAB) AB HEPATITIS C (test code = HCVAB) NEGATIVE NONREACTIVE ACUTE HEPATITIS [id number] 19:44:00 Test Item Value Reference Range Interpretation Comments AB HEPATITIS A IGM (test code = NEGATIVE NONREACTIVE HAVMAB) AG HEPATITIS B SURFACE (test code = NEGATIVE NONREACTIVE HBSAG) AB HEPATITIS B CORE IGM (test code = NEGATIVE NONREACTIVE HBCMAB) AB HEPATITIS C (test code = HCVAB) NONREACTIVE ACUTE HEPATITIS [id number] 19:39:00 Test Item Value Reference Range Interpretation Comments AB HEPATITIS A IGM (test code = NONREACTIVE HAVMAB) AG HEPATITIS B SURFACE (test code = NEGATIVE NONREACTIVE HBSAG) AB HEPATITIS B CORE IGM (test code = NEGATIVE NONREACTIVE HBCMAB) AB HEPATITIS C (test code = HCVAB) NONREACTIVE ACUTE HEPATITIS [id number] 19:34:00 Test Item Value Reference Range Interpretation Comments AB HEPATITIS A IGM (test code = NONREACTIVE HAVMAB) AG HEPATITIS B SURFACE (test code = NEGATIVE NONREACTIVE HBSAG) AB HEPATITIS B CORE IGM (test code = NONREACTIVE HBCMAB) AB HEPATITIS C (test code = HCVAB) NONREACTIVE HCG [id number] 18:27:00 Test Item Value Reference Range Interpretation Comments HCG SERUM (test < 2 IU/L ~~~~~~~~~~~~ ~~~~~~~~~~~~~~~~ code = HCG) ~~~~~~~~~~~~~~~ ~~~~~~~~~~~~~ ~~~~INTERPRETAT ION OF BHCG QN PERFORMED AT [facility] 0.2-1 W EEKS AFTER CONCEPTION 5-50 1-2 WEEKS AFTER CON CEPTION 50-500 2-3 WEEKS AFTER CONCEPTION 100-5,000 3-4 WEEKS AFTE R CONCEPTION 500-10,000 4-5 WEEKS AFTER CONCEPTIO N 1,000-50,000 5 -6 WEEKS AFTER CONCEPTIO N 10,000-100,0006 -8 WEEKS AFTER CONCEPTIO N 15,000-200,0002 -3 MONTHS 10,000-100,000 All values given in eros- International Units per mil liliter. SPECIMENS WITH B-HCG LEVELS LESS THAN OR EQ UAL TO 5 eros-Internati onal Units per milliliter WILL BE REPORTED ZER O OR "NEGATIVE." SP ECIMENS WITHB-HCG LEVEL S GREATER THAN OR EQUAL T O 25 eros-Internati onal Units per milliliter WILL BEREPORTED " POSITIVE." SPECIMENS WITH B-HCG LEVELS GREATERTHAN 5 eros-Internati onal Units per milliliter AND LESS THAN 25 eros-Microbiology Technician ational Units per milliliterS NAZARIO HAVE ADDITIONAL BLOO D SAMPLE DRAWN 48 HOURSL ATER AND REPEATED.~~~~~~ ~~~~~~~~~~~~~ ~~~~~~~~~~~~~~~ ~~~~~~~~~~~~~ ~~~~~~~~~~~~~ UNABLE TO DRAW BLOOD, REASON: PROCEDURENOTIFIED PATIENT CARE STAFF: MICHELLE LOPEZ WILL CALL LAB 1445ON 01/24/19 AT 1446 BY Aram SrivastavaCOMPREHENSIVE METABOLIC [id number] 18:13:00 Test Item Value Reference Range Interpretation Comments SODIUM (test code = 136 MMOL/L 137-145 L NA) POTASSIUM (test code = 4.3 MMOL/L 3.5-5.1 N K) CHLORIDE (test code = 102 MMOL/L 98-107 N CL) CARBON DIOXIDE (test 28 MMOL/L 22-30 N code = CO2) ANION GAP (test code = 10 MMOL/L 14-24 L GAP) GLUCOSE (test code = 105 MG/DL 74-106 N GLU) BLOOD UREA NITROGEN 9 MG/DL 7-17 N (test code = BUN) GLOMERULAR FILTRATION > 60 Report ing units: RATE (test code = GFR) ml/mi n/1.73 m2 (Modified MDRD Formula)Referen ce Range: > or = 6 0 ml/min/1.73 m2 CREATININE (test code 0.70 MG/DL 0.52-1.04 N = CREAT) TOTAL PROTEIN (test 6.2 G/DL 6.3-8.2 L code = PROT) ALBUMIN (test code = 3.3 G/DL 3.5-5.0 L ALB) CALCIUM (test code = 8.7 MG/DL 8.4-10.2 N CA) BILIRUBIN TOTAL (test 1.1 MG/DL 0.2-1.3 N code = BILT) SGOT/AST (test code = 628 UNITS/L 14-36 H AST) SGPT/ALT (test code = 159 UNITS/L 9-52 H ALT) ALKALINE PHOSPHATASE 440 UNITS/L 38-126 H (test code = ALKP) UNABLE TO DRAW BLOOD, REASON: PROCEDURENOTIFIED PATIENT CARE STAFF: MICHELLE LOPEZ WILL CALL LABON 01/24/19 AT 1447 BY Aram SrivastavaDILANTIN (PHENYTOIN) 2019-01-24 18:11:00 Test Item Value Reference Range Interpretation Comments DILANTIN (PHENYTOIN) (test code = 12.6 ug/ML 10.0-20.0 N DIL) Comments to Aviation Project Manager: REPORTED FROM [facility].LACTIC [id number] 18:11:00 Test Item Value Reference Range Interpretation Comments LACTIC ACID (test code = LACT) 2.2 MMOL/L 0.7-2.1 H UNABLE TO DRAW BLOOD, REASON: PROCEDURENOTIFIED PATIENT CARE STAFF: MICHELLE LOPEZ WILL CALL LAB ON 01/24/19 AT 1447 BY Aram [id number] 18:09:00 Test Item Value Reference Range Interpretation Comments PHOSPHOROUS (test code = PHOS) 3.4 MG/DL 2.5-4.5 N UNABLE TO DRAW BLOOD, REASON: PROCEDURENOTIFIED PATIENT CARE STAFF: MICHELLE LOPEZ WILL CALL LABYON 01/24/19 AT 1446 BY Aram [id number] 18:09:00 Test Item Value Reference Range Interpretation Comments MAGNESIUM (test code = MAG) 1.7 MG/DL 1.6-2.3 N UNABLE TO DRAW BLOOD, REASON: PROCEDURENOTIFIED PATIENT CARE STAFF: MICHELLE LOPEZ WILL CALL LABYON 01/24/19 AT 1446 BY Aram SrivastavaPROTHROMBIN TIME 2019-01-24 18:01:00 Test Item Value Reference Range Interpretation Comments PROTHROMBIN TIME 11.3 SECONDS 9.6-11.6 N PATIENT (test code = PTP) INTERNATIONAL NORMAL 1.1 0.8-1.1 N The INR is to be RATIO (test code = used only for INR) monitoring oral anticoagulantth erap y. INDICATION I NR VALUE ---- ---- ---- -------1. Prophylaxis, de ep venous thrombos is, including hig h risk surgery. 2.0 - 3.0 2. Prophylaxis, de ep venous thrombos is, hip surgery, treatment for d eep venous thrombosis or pulmonary prevention of systemic emboli sm in patients wit h valvular heart disease, atrial fibrillation, tissue heart va lve, or acute myocar dial infarction. 2.0 - 3 .0 3. Mechanical prosthesis hear t valves, recurrent syste kaylin embolism. 3.0 - 4.5 UNABLE TO DRAW BLOOD, REASON: PROCEDURENOTIFIED PATIENT CARE STAFF: MICHELLE LOPEZ WILL CALL LABON 01/24/19 AT 1448 BY AtifAngPTT [id number] 18:01:00 Test Item Value Reference Range Interpretation Comments PTT ACTIVATED (test code = APTT) 28.6 SECONDS 22.0-33.0 N UNABLE TO DRAW BLOOD, REASON: PROCEDURENOTIFIED PATIENT CARE STAFF: MICHELLE LOPEZ WILL CALL LABON 01/24/19 AT 1448 BY Antonio Srivastava W/AUTO DIFF 2019-01-24 17:47:00 Test Item Value Reference Range Interpretation Comments WHITE BLOOD CELL (test code = 5.2 K/MM3 3.8-9.8 N WBC) RED BLOOD CELL (test code = 3.91 M/MM3 3.58-4.97 N RBC) HEMOGLOBIN (test code = HGB) 11.4 G/DL 11.2-14.9 N HEMATOCRIT (test code = HCT) 36.0 % 33.2-43.5 N MEAN CELL VOLUME (test code = 92 fL 80.7-99.1 N MCV) MEAN CELL HGB (test code = MCH) 29.2 pg 27.0-34.1 N MEAN CELL HGB CONCETRATION 31.7 % 32.2-35.7 L (test code = MCHC) RED CELL DISTRIBUTION WIDTH 18.9 % 12.1-15.2 H (test code = RDW) PLATELET COUNT (test code = 109 K/MM3 129-368 L PLT) MEAN PLATELET VOLUME (test code 9.5 fl 7.4-10.4 N = MPV) NEUTROPHIL % (test code = NT%) 73.5 % 43-75 N IMMATURE GRANULOCYTE % (test 0.6 % 0.0-2.0 N code = IG%) LYMPHOCYTE % (test code = LY%) 15.7 % 14-44 N MONOCYTE % (test code = MO%) 7.1 % 4-13 N EOSINOPHIL % (test code = EO%) 2.5 % 0-6 N BASOPHIL % (test code = BA%) 0.6 % 0-2 N NUCLEATED RBC % (test code = 0.0 % 0-1.0 N NRBC%) NEUTROPHIL # (test code = NT#) 3.85 K/mm3 2.0-7.6 N IMMATURE GRANULOCYTE # (test 0.03 x10 3/uL 0-0.03 N code = IG#) LYMPHOCYTE # (test code = LY#) 0.82 K/mm3 1.0-3.8 L MONOCYTE # (test code = MO#) 0.37 K/mm3 0.1-0.8 N EOSINOPHIL # (test code = EO#) 0.13 K/mm3 0.0-0.2 N BASOPHIL # (test code = BA#) 0.03 K/mm3 0.0-0.2 N NUCLEATED RBC # (test code = 0.00 K/mm3 0.0-0.1 N NRBC#) UNABLE TO DRAW BLOOD, REASON: PROCEDURENOTIFIED PATIENT CARE STAFF: MICHELLE LOPEZ WILL CALL LABON 01/24/19 AT 1448 BY Aram Srivastava- CT HEAD/BRAIN W/O CONT 2019-01-24 15:30:00 Patient Name: LAMINE DOSHI Unit No: [id number] EXAMS: CPT CODE: [id number] CT HEAD/BRAIN W/O CONT 87009 EXAM: - CT HEAD/BRAIN W/O CONT Location code:C3 HISTORY: 29 years -old Female with SEIZURES TECHNIQUE: Axial CT images from the skull base to the vertex without intravenous contrast. Coronal and sagittal reformatted images werecreated from the data set. One or more of the following dose reduction techniques wereused: Automated exposure control, adjustment of the mA and/or kV according to patient siz e, and/or utilization of iterative reconstruction technique. COMPARISON: [...] MD Technologist: Parish Man, RT(R) CTDI: DLP: Trnscrpt: 01/24/2019 (1530) [email or web address] [facility] NAME: LAMINE DOSHI PHYS: [place] [address] : 1990 AGE: 29 SEX: F LOC: Z.621 B PHONE #: [phone] EXAM DATE: 01/24/2019 STATUS: ADM IN FAX #: [phone] RAD #: D/C DT PAGE 1 Signed Report Patient Name: LAMINE DOSHI Unit No: [id number] EXAMS: CPT CODE: [id number] CT HEAD/BRAIN W/O CONT [id number] <Continued> Orig Print D/T: S: 01/25/2019 (0923) [facility] NAME: LAMINE DOSHI PHYS: JOSE [place] [address] : 1990 AGE: 29 SEX: F LOC: Z.621 B PHONE #: [phone] EXAM DATE: 01/24/2019 STATUS: ADM IN FAX #: [phone] RAD #: D/C DT PAGE 2 Signed [id number] 22:58:00 Test Item Value Reference Range Interpretation Comments Amphetamine (test code Negative Negative N For d iagnostic purposes = AMPH) only, positive results should always b e assessedin conjunctionwith the patient's medic al history,clinica l examination and otherfindings.T o fulfill legal requirements, a more specific altern ate chemical method must be used inorder to obtain a Confirmed deirdre lytical result. GC/MS i s the preferred confi rmatory method. Barbiturates (test Negative Negative N code = CR) Benzodiazepine (test Negative Negative N code = GRIFFIN) Cocaine (test code = Negative Negative N COCA) Methadone (test code = Negative Negative N MTHD) Opiates (test code = Negative Negative N OPIA) PCP (test code = PCP) Negative Negative N Propoxyphene (test Negative Negative N code = PROPOX) THC (test code = THC) POSITIVE Negative A Comprehensive Metabolic [id number] 22:56:00 Test Item Value Reference Range Interpretation Comments Sodium (test code = 140 mmol/L 135-145 N NA) Potassium (test 4.0 mmol/L 3.5-5.1 N code = K) Chloride (test code 101 mmol/L 98-105 N = CL) Carbon Dioxide 25 mmol/L 22-29 N (test code = CO2) Glucose (test code 86 mg/dL 70-115 N = GLU) Blood Urea Nitrogen 7 mg/dL 6-20 N (test code = BUN) Creatinine (test 0.8 mg/dL 0.5-0.9 N code = CREAT) Calcium (test code 8.8 mg/dL 8.3-10.5 N = CA) Prot Total (test 7.0 g/dL 6.4-8.3 N code = TP) Albumin (test code 4.1 g/dL 3.5-5.2 N = ALB) A/G Ratio (test 1.4 Ratio code = AGRATIO) Globulin (test code 2.9 2.9-3.1 N = GLOB) Bili Total (test 1.3 mg/dL 0.1-0.9 H code = TBIL) Alk Phos (test code 267 U/L 35-104 H = APHOS) AST (test code = 564 U/L 1-32 H AST) ALT (test code = 153 U/L 1-33 H ALT) BUN/Creatinine 8.8 Ratio (test code = BCRATIO) Anion Gap (test 14 mmol/L 7-16 N code = AGAP) Estimated GFR (test >60 eGFR (es timated code = GFR) mL/min/1.73m2 Glomerular Ronnie tration Rate) is an est imated value,calculate d from the patient's s rhett creatinine usin g the MDRD equation.I t is NOT the patient 's actual GFR. The eGFR provides a more clinicallyusefu l measure of kidn ey disease than se rum creatinine alone.This calculation lisa es sex and race into account, if the informationis provided. If th e race is not provided , and the patient isAfrican-Ameri can, multiply by 1.2 12. If sex is not prov ided, and thepatient is female, multipl y by 0.742. Results for patients <18 ye ars ofage have not been validated by th e MDRD study and sherly pham be interpretedwith caution.eGFR Re sult Interpretation: eGFR > or = 60 is in t he Normal RangeeGF R < 60 may mean kidney diseaseeGFR < 1 5 may mean kidney failureRange s recommended by the National Kidney Foundation,http ://nkd ep.nih.gov Alcohol/Ethanol, [id number] 22:56:00 Test Item Value Reference Range Interpretation Comments Alcohol, Ethyl 0.25 g/dL 0.00-0.01 H Intoxicated 0.080 g/dL (test code = ETOH) or more Urinalysis [id number] 22:54:00 Test Item Value Reference Range Interpretation Comments Color (test code = Daisha Yellow,Straw,Pl A COLOR) yellow Clarity (test code = Clear Clear N CLAR) Specific [place] (test 1.020 1.001-1.035 N code = SPGR) pH (test code = PH) 5.0 5.0-9.0 N Ketone (test code = 5 mg/dL Negative A KET) Glucose (test code = Negative mg/dL Negative N GLUCUR) Protein (test code = 25 mg/dL Negative A PROT) Bilirubin (test code = See IctoTest mg/dL Negative A BILI) Occult Blood (test code Small Negative A = UDOB) Urobilinogen (test code 4.0 mg/dL 0.2-1.0 H = UROB) Nitrite (test code = Negative Negative N NIT) Leuk Esterase (test Negative Negative N code = LEUK) Ictotest (test code = Confirmed Negative Negative,Confirmed N ICTOTEST) Negative Micros Exam (test code Indicated = MEXAM) Epithelial Cells (test 3-5 /LPF 0-30 A code = EPI) WBC, Urine (test code = 0-2 /HPF 0-5 A UWBC) RBC, Urine (test code = None Seen /HPF 0-5 A URBC) Bacteria (test code = Few /HPF BACT) BHCG, Urine, [id number] 22:50:00 Test Item Value Reference Range Interpretation Comments Preg Qual [Ur] (test code = HUHCG) Negative Negative N CBC with [id number] 22:38:00 Test Item Value Reference Range Interpretation Comments WBC (test code = WBC) 3.3 K/cumm 4.4-10.5 L RBC (test code = RBC) 4.48 M/cumm 3.75-5.20 N Hemoglobin (test code = HGB) 13.1 gm/dL 12.2-14.8 N Hematocrit (test code = HCT) 43.2 % 36.5-44.4 N MCV (test code = MCV) 96.3 fL 80-100 N MCH (test code = MCH) 29.3 pg 27.0-32.5 N MCHC (test code = MCHC) 30.4 g/dL 32.0-37.5 L RDW (test code = RDW) 16.2 % 11.5-14.5 H Platelet Count (test code = 98 K/cumm 140-440 L PLTCT) MPV (test code = MPV) 8.6 fL Diff Method (test code = DIFFM) Auto Neutrophil (test code = NEUT) 40.6 % 36-70 N Lymphocyte (test code = LYMPH) 49.1 % 12-44 H Monocyte (test code = MONO) 6.5 % 0-11 N Eosinophil (test code = EOS) 2.7 % 0-7 N Basophil (test code = BASO) 1.2 % 0-2 N Neutro Abs (test code = ANEUT) 1.4 K/cumm 1.6-7.4 L Lymph Abs (test code = ALYMPH) 1.6 K/cumm 0.5-4.6 N [place] Abs (test code = AMONO) 0.2 K/cumm 0.0-1.2 N Eos Abs (test code = AEOS) 0.09 K/cumm 0.00-0.74 N Baso Abs (test code = ABASO) 0.0 K/cumm 0.00-0.21 N
[2020-10-06] MEDS ORDERED: ONDANSETRON 4 MG/2 ML VIAL ONE (19:25)
[2020-10-06] MEDS ORDERED: PANTOPRAZOLE 40 MG INJ ONE ×2 (19:26→20:55)
[2020-10-06] MEDS ORDERED: MEPERIDINE HCL 25 MG/ML SYR ONE (19:26)
[2020-10-06] MEDS ORDERED: NA CHLORIDE 0.9% 500 ML ONE (19:26)
[2020-10-06 19:35] LABS: Absolute Lymphocytes (CBC) 1.6 K/uL (0.7-4.9); Basophils % 0.5 % (0-1.3); Hematocrit 28.6 % (36.0-45.0); Lymphocytes % 24.3 % (15.3-44.8); RBC Red Blood Cell Count 4.08 M/uL (3.86-4.86)
[2020-10-06 19:47] LABS: ALT/SGPT 19 U/L (12-78); AST/SGOT 14 U/L (15-37); Albumin 3.3 g/dL (3.4-5.0); Alkaline Phosphatase 245 U/L (45-117); BUN Blood Urea Nitrogen 14 mg/dL (7-18); Bicarbonate 27 mmol/L (21-32); Bilirubin Direct < 0.1 mg/dL (0-0.2); Bilirubin Total 0.2 mg/dL (0.2-1.0); Glucose Level 82 mg/dL (74-106); Lipase 78 U/L (73-393); Potassium 4.3 mmol/L (3.5-5.1); Protein, Total 6.6 g/dL (6.4-8.2); Sodium Level 141 mmol/L (136-145)
[2020-10-06 19:51] LABS: Protime INR 0.99
--- NOTE | 2020-10-06 20:30 | RAD REPORT ---
EXAM DESCRIPTION: CT - Abdomen Pelvis W Contrast - 10/06/2020 8:20 pm CLINICAL HISTORY: Abdominal pain COMPARISON: 2016 TECHNIQUE: Computed axial tomography of the abdomen pelvis was obtained. 100 cc Isovue-300 was admin istered intravenously. Oral contrast was not requested which limits evaluation of bowel. All CT scans are performed using dose optimization technique as appropriate and may include automated exposure control or mA/KV adjustment according to patient size. FINDINGS: Postsurgical changes of liver transplant. The liver has homogeneous density. Portal vein i s patent. Gastric bypass Spleen, pancreas, adrenal and kidneys appear unremarkable. There is no evidence of diverticulitis. Normal appendix Spondylolysis L5. Bladder is mildly distended IMPRESSION: Mild bladder distention. Otherwise, no acute abnormality is displayed
[2020-10-06 20:39] LABS: Blood Morphology Comment NOTED (NOT SEEN); Platelet Estimate ADEQ; White Blood Cell Scan OK (OK)
[2020-10-06 20:40] LABS: Anisocytosis 2+; Hypochromasia 2+; Ovalocytes 2+; Teardrop Cell 1+
--- NOTE | 2020-10-06 20:50 | EDPHYS ---
Physician Documentation [facility] Name: Shae Dockery Age: 30 yrs Sex: Female : 1990 Arrival Date: 10/06/2020 Time: 17:41 Bed 2 Private MD: ED Physician Carlos Jha HPI: 10/06 19:39 This 30 yrs old Female presents to ER via Wheelchair with complaints of rn Abdominal Pain. 19:39 The patient presents with abdominal pain in the epigastric area, in the right upper rn quadrant. Onset: The symptoms/episode began/occurred yesterday. The symptoms do not radiate. Associated signs and symptoms: Pertinent positives: nausea and vomiting, vomiting blood, Pertinent negatives: blood in stools, fever, shortness of breath. The symptoms are described as intermittent, sharp. Modifying factors: The symptoms are alleviated by nothing, the symptoms are aggravated by touching the area. Severity of pain: At its worst the pain was moderate in the emergency department the pain is unchanged. The patient has experienced a previous episode. The patient has not recently seen a physician. Reports upper abd pain, worse in epigastric region, threw up a few times without blood, then had single episode of small bright red blood. Reports both gastric bypass and liver transplant. Compliant with meds. . DIRECTOR EXPORT: 18:30 LMP 09/22/2020 em Historical: - Allergies: 18:30 Ibuprofen (Upset stomach); em 18:30 Latex, Natural Rubber (Anaphylaxis); em 18:30 NSAIDS (Non-Steroidal Anti-Inflamma; em 18:30 tramadol (Seizures); em 18:30 Tylenol (Liver Issues); em 18:30 Ultram; em - PMHx: 18:30 alcohol abuse; ADD/ADHD; Anemia; Anxiety; Bipolar disorder; Cirrhosis; Crohn's; em Depression; GI Bleed; Liver disease; multiple blood transfusions; pt trying to get on liver transplant list; Seizures; self harm; suicidal ideation; - PSHx: 18:30 liver transplant; Gastric Bypass; Cholecystectomy; em - Immunization history:: Adult Immunizations up to date. - Social history:: Smoking status: Patient reports the use of cigarette tobacco products, denies chronic smoking, but will smoke occasionally. - Family history:: not pertinent. - Hospitalizations: : No recent hospitalization is reported. ROS: 19:39 Constitutional: Negative for fever, chills, and weight loss, Eyes: Negative for injury, rn pain, redness, and discharge, Neck: Negative for injury, pain, and swelling, Cardiovascular: Negative for chest pain, palpitations, and edema, Respiratory: Negative for shortness of breath, cough, wheezing, and pleuritic chest pain, Abdomen/GI: + abd pain and nausea/vomiting Back: Negative for injury and pain, : Negative for injury, bleeding, discharge, and swelling, MS/Extremity: Negative for injury and deformity, Skin: Negative for injury, rash, and discoloration, Neuro: Negative for headache, weakness, numbness, tingling, and seizure. Exam: 19:39 Constitutional: This is a well developed, well nourished patient who is awake, alert, rn and in no acute distress. Head/Face: Normocephalic, atraumatic. Eyes: Conjunctivae pink, not pale ENT: MMM Cardiovascular: Regular rate and rhythm. No pulse deficits. Respiratory: No increased work of breathing, no retractions or nasal flaring. Abdomen/GI: soft, + tender RUQ and epigastric region, no peritoneal signs. Skin: Warm, dry MS/ Extremity: Pulses equal, no cyanosis. Neuro: Awake and alert, GCS 15 Vital Signs: 18:27 BP 109 / 73; Pulse 81; Resp 18; Temp 98.3; Pulse Ox 99% on R/A; Weight 72.57 kg; Height em 5 ft. 6 in. (167.64 cm); Pain 8/10; 20:19 BP 122 / 51; Pulse 81; Resp 17; Pulse Ox 96% on R/A; rv 20:56 BP 114 / 61; Pulse 86; Resp 16; Pulse Ox 97% on R/A; rv 22:00 BP 120 / 77; Pulse 67; Resp 16; Pulse Ox 100% on R/A; rv 22:21 BP 125 / 79; Pulse 66; Resp 16; Pulse Ox 100% on R/A; rv 18:27 Body Mass Index 25.82 (72.57 kg, 167.64 cm) em MDM: 18:46 Patient medically screened. rn 20:45 Differential diagnosis: gastritis, gastroesophageal reflux disease, non-specific abd rn pain, pancreatitis, Peptic Ulcer Disease, gastritis, UGIB, transplant complication. Data reviewed: vital signs, nurses notes, lab test result(s), radiologic studies, CT scan, and as a result, I will admit patient. Counseling: I had a detailed discussion with the patient and/or guardian regarding: the historical points, exam findings, and any diagnostic results supporting the discharge/admit diagnosis, lab results, radiology results, the need for further work-up and treatment in the hospital, the need to transfer to another facility, for higher level of care, [facility] does not immediately have the required specialist. Response to treatment: the patient's symptoms have mildly improved after treatment, and as a result, I will admit patient. ED course: Pt with drop in hemoglobin, 8.7, states followed for liver transplant at [facility], dont have GI here, started on protonix drip and will attempt transfer to [facility]. . 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 They told patient could be 2 hour callback time, patient upset, does not want to wait, she is requesting to be discharged, and plans to drive to [facility] with her mother. We recommend waiting to try and complete transfer, patient wants to leave AMA. . 10/06 19:01 Order name: Basic Metabolic Panel; Complete Time: 20:29 rn 10/06 19:01 Order name: CBC with Diff; Complete Time: 20:45 rn 10/06 19:01 Order name: Hepatic Function; Complete Time: 20:29 10/06 19:01 Order name: Lipase; Complete Time: 20:29 rn 10/06 19:01 Order name: Protime (+inr); Complete Time: 20:29 rn 10/06 19:01 Order name: Ptt, Activated; Complete Time: 20:29 rn 10/06 19:01 Order name: CT Abd/Pelvis - IV Contrast Only; Complete Time: 20:37 rn 10/06 19:01 Order name: Lactate; Complete Time: 20:29 rn 10/06 19:46 Order name: CBC Smear Scan; Complete Time: 20:45 EDMS 10/06 19:01 Order name: IV Saline Lock; Complete Time: 20:18 rn 10/06 19:01 Order name: Labs collected and sent; Complete Time: 20:17 rn Administered Medications: 19:25 Drug: Zofran (Ondansetron) 4 mg Route: IVP; Site: right antecubital; rv 20:55 Follow up: Response: No adverse reaction; Nausea unchanged rv 19:36 Drug: Demerol (meperidine) 25 mg Route: IVP; Site: right antecubital; rv 20:56 Follow up: Response: No adverse reaction; Pain is unchanged, physician notified; RASS: rv Alert and Calm (0) 19:36 Drug: NS 0.9% 500 ml Route: IV; Rate: bolus; Site: right antecubital; rv 20:56 Follow up: IV Status: Completed infusion; IV Intake: 500ml rv 19:36 Drug: ProTONIX (pantoprazole) 40 mg Route: IVP; Site: right antecubital; rv 22:23 Follow up: Response: No adverse reaction rv 20:55 Drug: ProTONIX (pantoprazole) 8 mg/hr Route: IV; Rate: 25 ml/hr; Site: right rv antecubital; 22:23 Follow up: Response: No adverse reaction; IV Status: Order to discontinue infusion rv 20:55 Drug: Phenergan (promethazine) 12.5 mg Route: IVP; Site: right antecubital; rv 22:22 Follow up: Response: No adverse reaction; Nausea is decreased rv 21:33 Drug: morphine 4 mg Route: IVP; Site: right antecubital; ea 22:22 Follow up: Response: No adverse reaction; Pain is decreased; RASS: Alert and Calm (0) rv Disposition: 10/06/20 22:33 Patient has left against medical advice. Impression: Vomiting, unspecified, Hematemesis, Upper abdominal pain, unspecified. - Patients states they are going to Home. - Condition is Stable. Follow up: Private Physician; When: Upon discharge from the Emergency Department; Reason: Recheck today's complaints, Re-evaluation by your physician. - Problem is new. - Symptoms have improved. Signatures: Dispatcher [employer] Heri Flanagan, RN RN Carlos Connell MD MD rn Antunez, Elena, RN RN ea Vicente, Ronaldo, RN RN rv Corrections: (The following items were deleted from the chart) 22:32 20:49 10/06/2020 20:49 Transfer ordered to [facility]. rn Diagnosis is Hematemesis; Liver transplant status; Anemia, unspecified. Reason for transfer: Higher level of care. Accepting physician is . Condition is Stable. Problem is new. Symptoms have improved. rn 22:38 22:33 10/06/2020 22:33 Patients has left against medical advice. Impression: Vomiting, rv unspecified; Hematemesis; Upper abdominal pain, unspecified. Patient states they are going to Home. Condition is Stable. Follow up: Private Physician; When: Upon discharge from the Emergency Department; Reason: Recheck today's complaints, Re-evaluation by your physician. Problem is new. Symptoms have improved. rn
--- NOTE | 2020-10-06 20:50 | ER ---
Nurse's Notes [facility] Name: Shae Dockery Age: 30 yrs Sex: Female : 1990 Arrival Date: 10/06/2020 Time: 17:41 Bed 2 Private MD: Diagnosis: Vomiting, unspecified;Hematemesis;Upper abdominal pain, unspecified Presentation: 10/06 18:27 Chief complaint: Patient states: upper quad. pain but mostly on the right upper quad. em that started yesterday, also started vomiting today and having dizziness due to the pain, denies fever, also reports being a liver transplant pt 1 year ago. Coronavirus screen: Client denies travel out of the [place] in the last 14 days. Ebola Screen: Patient negative for fever greater than or equal to 101.5 degrees Fahrenheit, and additional compatible Ebola Virus Disease symptoms Patient denies exposure to infectious person. Patient denies travel to an Ebola-affected area in the 21 days before illness onset. No symptoms or risks identified at this time. Initial Sepsis Screen: Does the patient meet any 2 criteria? No. Patient's initial sepsis screen is negative. Does the patient have a suspected source of infection? No. Patient's initial sepsis screen is negative. Risk Assessment: Do you want to hurt yourself or someone else? Patient reports no desire to harm self or others. Onset of symptoms was October 06, 2020. 18:27 Method Of Arrival: Wheelchair em 18:27 Acuity: AYESHA 3 em Triage Assessment: 18:30 General: Appears in no apparent distress. uncomfortable, Behavior is cooperative, bp appropriate for age, anxious. Pain: Complains of pain in right upper quadrant. EENT: No deficits noted. Neuro: No deficits noted. Cardiovascular: No deficits noted. Respiratory: No deficits noted. GI: Reports upper abdominal pain, nausea. : No signs and/or symptoms were reported regarding the genitourinary system. Derm: No deficits noted. Musculoskeletal: No deficits noted. 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 09/22/2020 em Historical: - Allergies: 18:30 Ibuprofen (Upset stomach); em 18:30 Latex, Natural Rubber (Anaphylaxis); em 18:30 NSAIDS (Non-Steroidal Anti-Inflamma; em 18:30 tramadol (Seizures); em 18:30 Tylenol (Liver Issues); em 18:30 Ultram; em - PMHx: 18:30 alcohol abuse; ADD/ADHD; Anemia; Anxiety; Bipolar disorder; Cirrhosis; Crohn's; em Depression; GI Bleed; Liver disease; multiple blood transfusions; pt trying to get on liver transplant list; Seizures; self harm; suicidal ideation; - PSHx: 18:30 liver transplant; Gastric Bypass; Cholecystectomy; em - Immunization history:: Adult Immunizations up to date. - Social history:: Smoking status: Patient reports the use of cigarette tobacco products, denies chronic smoking, but will smoke occasionally. - Family history:: not pertinent. - Hospitalizations: : No recent hospitalization is reported. Screenin:30 Abuse screen: Denies threats or abuse. Denies injuries from another. Nutritional bp screening: No deficits noted. Tuberculosis screening: No symptoms or risk factors identified. Fall Risk None identified. Assessment: 18:30 General: SEE TRIAGE NOTE. bp 19:33 General: Appears comfortable, Behavior is calm, cooperative. Pain: Complains of pain in rv abdomen. Pain: Pain currently is 8 out of 10 on a pain scale. Neuro: Level of Consciousness is awake, alert, obeys commands, Oriented to person, place, time, situation. Cardiovascular: Patient's skin is warm and dry. Respiratory: Airway is patent Respiratory effort is even, unlabored. GI: Bowel sounds present X 4 quads. Abd is soft and non tender X 4 quads. GI: Reports nausea. Derm: No signs and/or symptoms reported regarding the dermatologic system. 19:34 Reassessment: PATIENT IS ASKING FOR ANOTHER NAUSEA MEDICATION, WITNESSED PATIENT EATING rv CHIPS, ADVISED NPO AT THE MOMENT. WILL KEEP MONITORING FOR NAUSEA. 20:18 Reassessment: PATIENT IS COMPLAINING OF PAIN AND NAUSEA, NOTICED PATIENT EATING AND rv HIDING UNDER THE BLANKET, REFERRED TO DR JHA, NO NEW ORDERS RECEIVED AT THIS TIME. PATIENT WENT TO CT SCAN. 20:56 Reassessment: PATIENT STILL COMPLAINING OF PAIN AND NAUSEA, DR JHA TALKED TO THE rv PATIENT AND EXPLAINED THE RESULT OF CT SCAN AND OTHER TEST RESULTS, AND THE PLAN OF CARE, PATIENT IS FOR TRANSFER, NEW ORDERS RECEIVED THIS TIME. 22:17 Reassessment: PATIENT TALKED TO THE TRANSPLANT TEAM AND DECIDED TO GO HOME, AND GO STRAIGHT TO MEDICAL CENTER TOMORROW MORNING. PATIENT DISCHARGED AFTER SIGNING AMA. Vital Signs: 18:27 BP 109 / 73; Pulse 81; Resp 18; Temp 98.3; Pulse Ox 99% on R/A; Weight 72.57 kg; Height em 5 ft. 6 in. (167.64 cm); Pain 8/10; 20:19 BP 122 / 51; Pulse 81; Resp 17; Pulse Ox 96% on R/A; rv 20:56 BP 114 / 61; Pulse 86; Resp 16; Pulse Ox 97% on R/A; rv 22:00 BP 120 / 77; Pulse 67; Resp 16; Pulse Ox 100% on R/A; rv 22:21 BP 125 / 79; Pulse 66; Resp 16; Pulse Ox 100% on R/A; rv 18:27 Body Mass Index 25.82 (72.57 kg, 167.64 cm) em ED Course: 17:41 Patient arrived in ED. ds1 18:28 Triage completed. em 18:30 Arm band placed on. em 18:30 Patient has correct armband on for positive identification. Bed in low position. Call bp light in reach. Side rails up X2. Adult w/ patient. 18:36 Donald Roach, RN is Primary Nurse. bp 18:46 Carlos Jha MD is Attending Physician. rn 19:10 Initial lab(s) drawn, by me, sent to lab. Missed attempt(s): 20 gauge in left forearm. rv 19:15 Primary Nurse role handed off by Donald Roach, RN mw2 19:18 Inserted saline lock: 20 gauge in right antecubital area, using aseptic technique. rv Blood collected. 19:33 Julien Donohue, MICHELLE is Primary Nurse. rv 20:20 CT Abd/Pelvis - IV Contrast Only In Process Unspecified. EDMS 21:12 initiated a transfer with Casie Crocker from [facility]. mw2 22:22 No provider procedures requiring assistance completed. IV discontinued, intact, rv bleeding controlled, No redness/swelling at site. Pressure dressing applied. 22:24 [facility] called back to deny due to capacity. mw2 Administered Medications: 19:25 Drug: Zofran (Ondansetron) 4 mg Route: IVP; Site: right antecubital; rv 20:55 Follow up: Response: No adverse reaction; Nausea unchanged rv 19:36 Drug: Demerol (meperidine) 25 mg Route: IVP; Site: right antecubital; rv 20:56 Follow up: Response: No adverse reaction; Pain is unchanged, physician notified; RASS: rv Alert and Calm (0) 19:36 Drug: NS 0.9% 500 ml Route: IV; Rate: bolus; Site: right antecubital; rv 20:56 Follow up: IV Status: Completed infusion; IV Intake: 500ml rv 19:36 Drug: ProTONIX (pantoprazole) 40 mg Route: IVP; Site: right antecubital; rv 22:23 Follow up: Response: No adverse reaction rv 20:55 Drug: ProTONIX (pantoprazole) 8 mg/hr Route: IV; Rate: 25 ml/hr; Site: right rv antecubital; 22:23 Follow up: Response: No adverse reaction; IV Status: Order to discontinue infusion rv 20:55 Drug: Phenergan (promethazine) 12.5 mg Route: IVP; Site: right antecubital; rv 22:22 Follow up: Response: No adverse reaction; Nausea is decreased rv 21:33 Drug: morphine 4 mg Route: IVP; Site: right antecubital; ea 22:22 Follow up: Response: No adverse reaction; Pain is decreased; RASS: Alert and Calm (0) rv Intake: 20:56 IV: 500ml; Total: 500ml. rv Outcome: 20:49 ER care complete, transfer ordered by . rn 22:22 AMA AMA form signed rv 22:22 Condition: good 22:38 Patient left the ED. rv Signatures: Dispatcher [employer] Heri Flanagan RN Drea Horta dsCarlos Sheridan MD MD rn Antunez, Elena, RN RN ea Peltier, Brian RN Alix Frances mw2 Julien Donohue RN RN rv
[2020-10-06] MEDS ORDERED: NA CHLORIDE 0.9% 250 ML ONE (20:55)
[2020-10-06] MEDS ORDERED: MORPHINE 4 MG/ML SYR ONE (21:48)
[2020-10-06 22:45] VITALS: TEMP 98.3
[2020-10-06 22:48] VITALS: O2SAT 100
[2020-10-06 22:49] VITALS: BP 125/79
== END 2020-10-06 22:38 | disposition left against medical advice (07) ==
LOC: ER 17:35
DX: R10.13 Epigastric pain (principal); K92.0 Hematemesis; F17.210 Nicotine dependence, cigarettes, uncomplicated; F90.9 Attention-deficit hyperactivity disorder, unspecified type; F41.9 Anxiety disorder, unspecified; K74.60 Unspecified cirrhosis of liver; K50.90 Crohn's disease, unspecified, without complications; F31.9 Bipolar disorder, unspecified; Z98.84 Bariatric surgery status; Z94.4 Liver transplant status; Z53.20 Procedure and treatment not carried out because of patient's decision for unspecified reasons
CPT/HCPCS: 85025; 80048; 36415; 85610; 80076; 83605; 85730; 83690; 74177; Q9967; C9113 ×2; J2175; J7050; J7040; J2405; 96361; 96365; 96375; 99284

== ENCOUNTER 2021-01-24 11:35 | Emergency (ER) | payer OTHER ==
--- OUTSIDE RECORDS SUMMARY | 2021-01-24 11:51 | XMS REPORT | Continuity of Care Document ---
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 [facility] (ECOTRIN) 0-21 tablet (81 st 81 MG 00:00: mg total) [facility]ospita enteric 00 by mouth l coated daily. tablet carvediloL 2019-06 Yes [id number] 25mg Q.5D Take 1 [facility] (COREG) 25 0-21 tablet (25 st MG tablet 00:00: mg total) Hos acosta 00 by mouth 2 l (two) times a day. ergocalcife 2019-06 Yes [id number] 06359R Q7D Take 1 [facility] rol 0-[address] (VITAMIN 00:00: (50,000 Hospit a D2) 50,000 00 Units l unit total) by capsule mouth once a week. levETIRAcet 2019-06 Yes [id number] 250mg Q.5D Take 1 [facility] am (KEPPRA) 0-[address] 250 MG 00:00: (250 mg Hospita tablet 00 total) by l mouth 2 (two) times a day. magnesium 2019-06 Yes [id number] 400mg Q.5D Take 1 [facility] oxide 0-[address] (MAG-OX) 00:00: (400 mg Hospit a 400 mg 00 total) by l (241.3 mg mouth 2 magnesium) (two) tablet times a day. multivitami 2019-06 Yes [id number] 1{tbl} QD Take 1 [facility] n 0-[address] (THERAGRAN) 00:00: mouth Hospi ta tablet 00 daily. l mycophenola 2019-06 Yes [id number] 1000mg Q.5D Take 2 [facility] te 0-[address] (CELLCEPT) 00:00: (1,000 mg Ho [facility]ita 500 mg 00 total) by l tablet mouth 2 (two) times a day. OLANZapine 2019-06 Yes [id number] 10mg QD Take 1 M [facility] (ZYPREXA) 0-21 tablet (10 st 10 MG 00:00: mg total) Hospita tablet 00 by mouth l nightly. sodium 2019-06 Yes [id number] 650mg Q.5D Take 1 [facility] bicarbonate 0-[address] 650 mg 00:00: (650 mg Hospita tablet 00 total) by l mouth 2 (two) times a day. tamsulosin 2019-06 Yes .4mg QD Take 1 [facility] di (FLOMAX) 0-[address] 0.4 mg 00:00: (0.4 mg Hospita capsule 00 total) by l mouth daily with dinner. ursodioL 2019-06 Yes [id number] 300mg Q.5D Take 1 M [facility] (ACTIGALL) 0-[address] 300 mg 00:00: (300 mg [facility]osp[facility] capsule 00 total) by l mouth 2 (two) times a day. venlafaxine 2019-06 Yes 75mg Q.5D Take 1 [facility] rhe[facility] (EFFEXOR) 0-21 tablet (75 st 75 MG 00:00: mg total) [facility]ospita tablet 00 by mouth 2 l (two) times a day with meals. calcium 2019-06 Yes 1{tbl} Q.5D Take 1 [facility] carbonate-v 0-[address] itamin D3 00:00: mouth 2 Hospi ta 500 mg-200 00 (two) l unit per times a tablet day with meals. sulfamethox 2019-06 No [id number] 1{tbl} Q.66835573 Take 1 [facility] azole-trime 004-[id number] thoprim 00:00: 04:59 3W mouth 3 Hospit a (BACTRIM 00 :00 (three) l DS) 800-160 times a mg per week. tablet sulfamethox 2019-06 No [id number] 1{tbl} Q.59293771 Take 1 [facility] azole-trime 004-[id number] thoprim 00:00: 04:59 3W mouth 3 Hospit a (BACTRIM 00 :00 (three) l DS) 800-160 times a mg per week. tablet pantoprazol 2019-06 [id number] 40mg QD Take 1 [facility] e 07-02 tablet (40 st (PROTONIX) 00:00: 00:00 mg total) H ospita 40 MG EC 00 :00 by mouth l tablet daily. pantoprazol 2019-06 [id number] 40mg QD Take 1 [facility] e 07-02 tablet (40 st (PROTONIX) 00:00: 00:00 mg total) H [facility]spita 40 MG EC 00 :00 by mouth l tablet daily. gabapentin 2019-06- No 400mg Q.32179852 Take 1 [facility] (NEURONTIN) 005-[id number] 400 mg 00:00: 05:59 3D (400 mg Hospita capsule 00 :00 total) by l mouth 3 (three) times a day for 30 days. gabapentin 2019-06- No 400mg Q.[id number] Take 1 [facility] (NEURONTIN) 0-02 05- [id number] capsule st 400 mg 00:00: 05:59 3D (400 mg Hospita capsule 00 :00 total) by l mouth 3 (three) times a day for 30 days. cycloSPORIN 2019-06- No 200mg Q.5D Take 2 [facility] E modified - capsules st (NEORAL) 00:00: 00:00 (200 mg Hospi ta 100 MG 00 :00 total) by l capsule mouth 2 (two) times a day. Total dose: 225 mg every morning and 200 mg every evening cycloSPORIN 2019-06- No 25mg QD Take 1 Met hodi E modified 0-21 10-[address] (NEORAL) 25 00:00: 00:00 (25 mg Hos acosta MG capsule 00 :00 total) by l mouth every morning. TOTAL DOSE: 225 mg every morning and 200 mg every evening cycloSPORIN 2019-06- No 200mg Q.5D Take 2 [facility] E modified 0-21 10-[address] (NEORAL) 00:00: 00:00 (200 mg Hospi ta 100 MG 00 :00 total) by l capsule mouth 2 (two) times a day. Total dose: 225 mg every morning and 200 mg every evening cycloSPORIN 2019-06 No 25mg QD Take 1 Met [facility] E modified 0-21 -[address] (NEORAL) 25 00:00: 00:00 (25 mg Hos acosta MG capsule 00 :00 total) by l mouth every morning. TOTAL DOSE: 225 mg every morning and 200 mg every evening allopurinoL 2019-06 Yes 100mg Take [address] (ZYLOPRIM) 0-16 mg by [facility] MG 00:00: mouth. Medical tablet 00 [place] aspirin 81 2019-06 Yes 81mg Take [address] MG EC 0-16 by mouth. [facility] - tablet 00:00: Medical 00 [place] carvediloL 2019-06 Yes 25mg Take [address] (COREG) 25 0-16 by mouth. [facility] - MG tablet 00:00: Medical 00 [place] ergocalcife 2019-06 [id number] [facility] 0-16 50,000 [facility] - (ERGOCALCIF 00:00: Units by Ga dical RAMSES) 1,250 00 mouth. [place] mcg (50,000 unit) capsule mycophenola 2019-06 Yes 1000mg Q.5D Take 1,[address] [facility] [facility] 0-16 mg by [facility] - (CELLCEPT) 00:00: mouth 2 Medi gasper 500 mg 00 (two) Center tablet times daily . cycloSPORIN 2019-06- No 100mg Take [address] [facility] modified 0-16 04-03 mg by [facility] - (NEORAL) 00:00: 00:00 mouth. Medica l 100 MG 00 :00 [place] capsule cycloSPORIN 2019-06 No 25mg Take [address] [facility] modified 09-12 by mouth. Kary es - (NEORAL) 25 00:00: 00:00 Medic al MG capsule 00 :00 [place] flash 2019- Yes 1{each} Q14D 1 each [facility] glucose 8-[address] scanning 00:00: (fourteen) [facility] reader 00 days. l (FreeStyle [facility] [facility] [place] [facility] [place] 1{each} Q14D 1 each [facility] glucose 8-[address] scanning 00:00: (fourteen) [facility] acosta reader 00 days. l (FreeStyle [facility] [place] [facility] [place]- No [id number] 1{tbl} Q.32528946 Take 1 [facility] azole-trime 01-[id number] thoprim 00:00: 00:00 3W mouth 3 Hospit a (BACTRIM 00 :00 (three) l DS) 800-160 times a mg per week for tablet 30 days. sulfamethox 2019- No [id number] 1{tbl} Q.11761327 Take 1 [facility] azole-trime 01-[id number] thoprim 00:00: 00:00 3W mouth 3 Hospit a (BACTRIM 00 :00 (three) l DS) 800-160 times a mg per week for tablet 30 days. LORAZepam 2019- No 1mg Q.87665788 Take 1 mg [facility] (ATIVAN) 1 01-13 [id number] by mouth 3 st MG tablet 00:16: 00:00 3D (three) [facility] 09 :00 times a l day as needed. traZODone 2019- No 150mg QD Take 150 [facility] (DESYREL) 01-[address] 100 MG 00:16: 00:00 mouth Hospita tablet 09 :00 nightly as l needed for sleep. zolpidem 2019- No 5mg QD Take 5 mg [facility] (AMBIEN) 5 8-04 08-[address] MG tablet 00:16: 00:00 nightly as H ospita 09 :00 needed for l sleep. dicyclomine 2019- No 20mg Q.75880637 Take 20 mg [facility] (BENTYL) 10 01-13 [id number] by mouth 3 st MG capsule 00:16: 00:00 3D (three) Hos acosta 09 :00 times a l day as needed. hydrOXYzine 2019- No 25mg Q.77902643 Take 25 mg [facility] (ATARAX) 25 01-13 [id number] by mouth 3 st MG tablet 00:16: 00:00 3D (three) [facility] 09 :00 times a l day as needed for itching. levETIRAcet No 500mg Q.5D Take 500 [facility] am (KEPPRA) 01-[address] 500 MG 00:16: 00:00 mouth 2 [facility]ospita tablet 09 :00 (two) l times a day. amLODIPine No [id number] 10mg QD Take 1 [facility] (NORVASC) 01-13 tablet (10 st 10 mg 00:00: 00:00 mg total) Hospit a tablet 00 :00 by mouth l daily for 30 days. ascorbic No [id number] 500mg QD Take 1 [facility] acid, 01-[address] vitamin C, 00:00: 00:00 (500 mg Hos acosta (VITAMIN C) 00 :00 total) by l 500 MG mouth tablet daily for 30 days. aspirin 81 No [id number] 81mg QD Chew 1 [facility] mg chewable 01-13 tablet (81 s t tablet 00:00: 00:00 mg total) Hospi ta 00 :00 daily for l 30 days. bacitracin 2019- No [id number] QD Apply [facility] ointment 01-[address] tube 00:00: 00:00 daily for Hospita 00 :00 30 days. l cycloSPORIN 2020- No 175mg QD Take 7 [facility] E modified 01-[address] (NEORAL) 25 00:00: 00:00 (175 mg Ho [facility]ita MG capsule 00 :00 total) by l mouth daily for 30 days. ergocalcife [id number] 12688Z Q7D Take 1 [facility] rol 01-[address] (VITAMIN 00:00: 00:00 (50,000 Hospi ta D2) 50,000 00 :00 Units l unit total) by capsule mouth once a week for 30 days. isavuconazo [id number] 372mg QD Take 2 [facility] nium 01-[address] (CRESEMBA) 00:00: 00:00 (372 mg Hos acosta 186 mg 00 :00 total) by l capsule mouth capsule daily for 30 days. lidocaine [id number] 1{patch Q24H Place 1 [facility] (LIDODERM) 01-13 } patch on st 5 % 00:00: 00:00 the skin Hospita 00 :00 daily for l 30 days. Remove & Discard patch within 12 hours or as directed by MD yoder [id number] 2{tbl} QD Take 2 [facility] n 01-[address] (THERAGRAN) 00:00: 00:00 mouth [facility] tablet 00 :00 daily for l 30 days. pantoprazol [id number] 40mg QD Take 1 [facility] e 01-13 tablet (40 st (PROTONIX) 00:00: 00:00 mg total) H [facility]spita 40 MG EC 00 :00 by mouth l tablet daily for 30 days. polyethylen No [id number] 17g QD Take 17 g [facility] e glycol 01-[address] (MIRALAX) 00:00: 00:00 daily for Ho spita 17 gram 00 :00 30 days. l packet pyridoxine, [id number] 50mg QD Take 1 [facility] vitamin B6, 01-13 tablet (50 s t (B-6) 50 MG 00:00: 00:00 mg total) [facility]ospita tablet 00 :00 by mouth l daily for 30 days. valGANciclo No [id number] 450mg QD Take 1 [facility] vir 01-[address] (VALCYTE) 00:00: 00:00 (450 mg [facility] 450 mg 00 :00 total) by l tablet mouth daily for 30 days. amLODIPine 2019- No [id number] 10mg QD Take 1 [facility] (NORVASC) 01-13 tablet (10 st 10 mg 00:00: 00:00 mg total) Hospit a tablet 00 :00 by mouth l daily for 30 days. ascorbic 2019- No [id number] 500mg QD Take 1 [facility] acid, 01-[address] vitamin C, 00:00: 00:00 (500 mg Hos acosta (VITAMIN C) 00 :00 total) by l 500 MG mouth tablet daily for 30 days. aspirin 81 2019- No [id number] 81mg QD Chew 1 [facility] mg chewable 01-13 tablet (81 s t tablet 00:00: 00:00 mg total) Hospi ta 00 :00 daily for l 30 days. bacitracin 2019- No [id number] QD Apply [facility] ointment 01-[address] tube 00:00: 00:00 daily for Hospita 00 :00 30 days. l cycloSPORIN 2020- No 175mg QD Take 7 [facility] E modified 01-[address] (NEORAL) 25 00:00: 00:00 (175 mg Ho sp[facility] MG capsule 00 :00 total) by l mouth daily for 30 days. ergocalcife 2019- No [id number] 10291H Q7D Take 1 [facility] rol 01-[address] (VITAMIN 00:00: 00:00 (50,000 Hospi ta D2) 50,000 00 :00 Units l unit total) by capsule mouth once a week for 30 days. isavuconazo 2019- No [id number] 372mg QD Take 2 [facility] nium 01-[address] (CRESEMBA) 00:00: 00:00 (372 mg Hos acosta 186 mg 00 :00 total) by l capsule mouth capsule daily for 30 days. lidocaine 2019- No [id number] 1{patch Q24H Place 1 [facility] (LIDODERM) 01-13 } patch on st 5 % 00:00: 00:00 the skin Hospita 00 :00 daily for l 30 days. Remove & Discard patch within 12 hours or as directed by multivitami [id number] 2{tbl} QD Take 2 [facility] n 01-[address] (THERAGRAN) 00:00: 00:00 mouth [facility] tablet 00 :00 daily for l 30 days. pantoprazol [id number] 40mg QD Take 1 [facility] e 01-13 tablet (40 st (PROTONIX) 00:00: 00:00 mg total) H ospita 40 MG EC 00 :00 by mouth l tablet daily for 30 days. polyethylen No [id number] 17g QD Take 17 g [facility] e glycol 01-[address] (MIRALAX) 00:00: 00:00 daily for [facility] sp[facility] 17 gram 00 :00 30 days. l packet pyridoxine, [id number] 50mg QD Take 1 [facility] vitamin B6, 01-13 tablet (50 s t (B-6) 50 MG 00:00: 00:00 mg total) [facility]ospita tablet 00 :00 by mouth l daily for 30 days. valGANciclo No [id number] 450mg QD Take 1 [facility] vir 01-[address] (VALCYTE) 00:00: 00:00 (450 mg [facility] 450 mg 00 :00 total) by l tablet mouth daily for 30 days. predniSONE No [id number] 5mg QD Take 1 [facility] (DELTASONE) 01-13 tablet (5 st 5 mg tablet 00:00: 00:00 mg total) [facility]ospita 00 :00 by mouth l daily for 30 days. levETIRAcet No [id number] 250mg Q.5D Take 1 [facility] am (KEPPRA) 01-[address] 250 MG 00:00: 00:00 (250 mg [facility]ospita tablet 00 :00 total) by l mouth 2 (two) times a day for 30 days. polyvinyl No [id number] 1[drp] Administer [facility] alcohol 01-[address] (artificial 00:00: 00:00 both eyes [facility]ospita tears) 00 :00 as needed l ophthalmic for dry solution eyes for up to 30 days. baclofen 5 No 5mg Q6H Take 1 [facility] mg tablet 01-12 tablet (5 st 00:00: 00:00 mg total) [facility]ospita 00 :00 by mouth l every 6 (six) hours for 30 days. bisacodyL No [id number] 10mg Q24H Insert 1 [facility] (DULCOLAX) 01-[address] 10 mg 00:00: 00:00 y (10 mg [facility]osp[facility] suppository 00 :00 total) l into the rectum daily as needed for constipati on for up to 30 days. capsaicin 2019- No Q.[id number] Apply [facility] (ZOSTRIX) 01-[id number] 0.025 % 00:00: 00:00 3D 3 (three) [facility] cream 00 :00 times a l day for 30 days. carvediloL 2019- No [id number] 25mg Q.5D Take 1 [facility] (COREG) 25 01-12 tablet (25 st MG tablet 00:00: 00:00 mg total) [facility] sp[facility] 00 :00 by mouth 2 l (two) times a day for 30 days. cycloSPORIN 2019- No 150mg QD Take 3 [facility] E modified 01-[address] (NEORAL) 50 00:00: 00:00 (150 mg [facility] sp[facility] MG capsule 00 :00 total) by l mouth daily for 30 days. docusate 2019- No [id number] 100mg Q.5D Take 1 [facility] sodium 01-[address] (COLACE) 00:00: 00:00 (100 mg Hospi ta 100 MG 00 :00 total) by l capsule mouth 2 (two) times a day as needed for constipati on for up to 30 days. gabapentin 2019- No 100mg Q.68372472 Take 1 [facility] (NEURONTIN) 01-[id number] 100 mg 00:00: 00:00 3D (100 mg [facility]ospita capsule 00 :00 total) by l mouth 3 (three) times a day for 30 days. labetaloL 2019- No [id number] 10mg Q4H Infuse 2 [facility] (NORMODYNE) 01-12 10-21 mL ([address] 20 mg/4 mL 00:00: 00:00 total) [facility] (5 mg/mL) 00 :00 into a l syringe venous injection catheter syringe every 4 (four) hours as needed for high blood pressure for up to 30 days. magnesium 2019- No [id number] 400mg Q.5D Take 1 [facility] oxide 01-12- tablet st (MAG-OX) 00:00: 00:00 (400 mg Hospi ta 400 mg 00 :00 total) by l (241.3 mg mouth 2 magnesium) (two) tablet times a day for 30 days. mycophenola 2019- No [id number] 1000mg Q.5D Take 2 [facility] te 01-12-[address] (CELLCEPT) 00:00: 00:00 (1,000 mg H [facility]ita 500 mg 00 :00 total) by l tablet mouth 2 (two) times a day for 30 days. naloxone 2019- No [id number] .2mg Infuse 0.5 [facility] (NARCAN) 01-12- mL (0.[address] 0.4 mg/mL 00:00: 00:00 total) [facility]pi ta injection 00 :00 into a l venous catheter once as needed for opioid reversal or respirator y depression (as needed for respirator y rate 8 per minute or less OR patient sommnolent and difficult to arouse (POSS GREATER than 3).) for up to 30 days. OLANZapine 2019- No [id number] 10mg QD Take 1 [facility] (ZYPREXA) 01-12-21 tablet (10 st 10 MG 00:00: 00:00 mg total) Hospit a tablet 00 :00 by mouth l nightly for 30 days. OLANZapine 2019- No [id number] 5mg Q6H Take 1 [facility] (ZYPREXA) 5 01-12-21 tablet (5 st MG tablet 00:00: 00:00 mg total) [facility] 00 :00 by mouth l every 6 (six) hours as needed (Anxiety and Agitation) for up to 30 days. OLANZapine 2019- No [id number] 5mg QD Take 1 [facility] (ZYPREXA) 5 01-12 tablet (5 st MG tablet 00:00: 00:00 mg total) [facility] 00 :00 by mouth l nightly as needed (Insomnia) for up to 30 days. ondansetron 2019- No [id number] 4mg Q8H Infuse 2 [facility] (ZOFRAN) 4 01-12 mL ([address] mg/2 mL 00:00: 00:00 total) [facility]ospita injection 00 :00 into a l venous catheter every 8 (eight) hours as needed for nausea or vomiting for up to 30 days. oxyCODone-[place] 2019- No [id number] 1{tbl} Q4H Take 1 [facility] cetaminophe 01-[address] n 00:00: 00:00 mouth Hospita (PERCOCET) 00 :00 every 4 l 5-325 mg (four) per tablet hours as needed for moderate pain for up to 30 days .acute pain. Max Daily Amount: 6 tablets ramelteon 2019- No [id number] 8mg QD Take 1 [facility] (ROZEREM) 8 01-12 tablet (8 st mg tablet 00:00: 00:00 mg total) [facility] spita 00 :00 by mouth l nightly as needed for sleep for up to 30 days. simethicone 2019- No [id number] 80mg Q6H Chew 1 [facility] (MYLICON) 01-12 tablet (80 st 80 MG 00:00: 00:00 mg total) Hospit a chewable 00 :00 every 6 l tablet (six) hours as needed for flatulence for up to 30 days. riFAXimin 2019- No [id number] 550mg Q.5D Take 1 [facility] (XIFAXAN) 01-[address] 550 mg 00:00: 00:00 (550 mg [facility]ospita tablet 00 :00 total) by l mouth 2 (two) times a day for 30 days. sodium 2019- No [id number] 1950mg Q.5D Take 3 M [facility]i bicarbonate 01-[address] 650 mg 00:00: 00:00 (1,950 mg Hospi ta tablet 00 :00 total) by l mouth 2 (two) times a day for 30 days. tamsulosin 2019- No .4mg QD Take 1 [facility] (FLOMAX) 01-[address] 0.4 mg 00:00: 00:00 (0.4 mg [facility]ospita capsule 00 :00 total) by l mouth daily with dinner for 30 days. ursodioL 2019- No [id number] 300mg Q.5D Take 1 [facility] (ACTIGALL) 01-[address] 300 mg 00:00: 00:00 (300 mg [facility]osp[facility] capsule 00 :00 total) by l mouth 2 (two) times a day for 30 days. venlafaxine 2019- No 75mg Q.5D Take 1 [facility] (EFFEXOR) 01-12 tablet (75 st 75 MG 00:00: 00:00 mg total) Hospit a tablet 00 :00 by mouth 2 l (two) times a day with meals for 30 days. levETIRAcet 2019- No [id number] 250mg Q.5D Take 1 [facility] am (KEPPRA) 01-[address] 250 MG 00:00: 00:00 (250 mg [facility]osp[facility] tablet 00 :00 total) by l mouth 2 (two) times a day for 30 days. polyvinyl 2019- No [id number] 1[drp] Administer [facility] alcohol 01-[address] (artificial 00:00: 00:00 both eyes [facility]osp[facility] tears) 00 :00 as needed l ophthalmic for dry solution eyes for up to 30 days. baclofen 5 2020- No 5mg Q6H Take 1 [facility] mg tablet 01-12 tablet (5 st 00:00: 00:00 mg total) [facility]ospita 00 :00 by mouth l every 6 (six) hours for 30 days. bisacodyL 2019- No [id number] 10mg Q24H Insert 1 [facility] (DULCOLAX) 01-[address] 10 mg 00:00: 00:00 y (10 mg [facility]ospita suppository 00 :00 total) l into the rectum daily as needed for constipati on for up to 30 days. capsaicin 2020- No Q.[id number] Apply [facility] (ZOSTRIX) 01-[id number] 0.025 % 00:00: 00:00 3D 3 (three) [facility] cream 00 :00 times a l day for 30 days. carvediloL 2019- No [id number] 25mg Q.5D Take 1 [facility] (COREG) 25 01-12 tablet (25 st MG tablet 00:00: 00:00 mg total) [facility] sp[facility] 00 :00 by mouth 2 l (two) times a day for 30 days. cycloSPORIN 2019- No 150mg QD Take 3 [facility] E modified 01-[address] (NEORAL) 50 00:00: 00:00 (150 mg [facility] MG capsule 00 :00 total) by l mouth daily for 30 days. docusate No [id number] 100mg Q.5D Take 1 [facility] sodium 01-[address] (COLACE) 00:00: 00:00 (100 mg Hospi ta 100 MG 00 :00 total) by l capsule mouth 2 (two) times a day as needed for constipati on for up to 30 days. gabapentin No 100mg Q.94158948 Take 1 [facility] (NEURONTIN) 01-[id number] 100 mg 00:00: 00:00 3D (100 mg [facility]osp[facility] capsule 00 :00 total) by l mouth 3 (three) times a day for 30 days. labetaloL 2019- No [id number] 10mg Q4H Infuse 2 [facility] (NORMODYNE) 01-12 mL ([address] 20 mg/4 mL 00:00: 00:00 total) [facility] (5 mg/mL) 00 :00 into a l syringe venous injection catheter syringe every 4 (four) hours as needed for high blood pressure for up to 30 days. magnesium 2019- No [id number] 400mg Q.5D Take 1 [facility] oxide 01-[address] (MAG-OX) 00:00: 00:00 (400 mg Hospi ta 400 mg 00 :00 total) by l (241.3 mg mouth 2 magnesium) (two) tablet times a day for 30 days. mycophenola 2019- No [id number] 1000mg Q.5D Take 2 [facility] te 01-12 10-[address] (CELLCEPT) 00:00: 00:00 (1,000 mg H [facility]ita 500 mg 00 :00 total) by l tablet mouth 2 (two) times a day for 30 days. naloxone 2019- No [id number] .2mg Infuse 0.5 [facility] (NARCAN) 01-12-21 mL (0.[address] 0.4 mg/mL 00:00: 00:00 total) [facility]pi ta injection 00 :00 into a l venous catheter once as needed for opioid reversal or respirator y depression (as needed for respirator y rate 8 per minute or less OR patient sommnolent and difficult to arouse (POSS GREATER than 3).) for up to 30 days. OLANZapine No [id number] 10mg QD Take 1 [facility] (ZYPREXA) 01-12-21 tablet (10 st 10 MG 00:00: 00:00 mg total) Hospit a tablet 00 :00 by mouth l nightly for 30 days. OLANZapine 2019- No [id number] 5mg Q6H Take 1 [facility] (ZYPREXA) 5 01-12 10-21 tablet (5 st MG tablet 00:00: 00:00 mg total) [facility] 00 :00 by mouth l every 6 (six) hours as needed (Anxiety and Agitation) for up to 30 days. OLANZapine 2019- No [id number] 5mg QD Take 1 [facility] (ZYPREXA) 5 01-12 10-21 tablet (5 st MG tablet 00:00: 00:00 mg total) [facility] 00 :00 by mouth l nightly as needed (Insomnia) for up to 30 days. ondansetron 2019- No [id number] 4mg Q8H Infuse 2 [facility] (ZOFRAN) 4 01-12-21 mL ([address] mg/2 mL 00:00: 00:00 total) [facility]ospita injection 00 :00 into a l venous catheter every 8 (eight) hours as needed for nausea or vomiting for up to 30 days. oxyCODone-[place] 2019- No [id number] 1{tbl} Q4H Take 1 [facility] cetaminophe 01-[address] n 00:00: 00:00 mouth [facility]ospita (PERCOCET) 00 :00 every 4 l 5-325 mg (four) per tablet hours as needed for moderate pain for up to 30 days .acute pain. Max Daily Amount: 6 tablets ramelteon 2019- No [id number] 8mg QD Take 1 [facility] (ROZEREM) 8 01-12 tablet (8 st mg tablet 00:00: 00:00 mg total) [facility] 00 :00 by mouth l nightly as needed for sleep for up to 30 days. simethicone 2019- No [id number] 80mg Q6H Chew 1 [facility] (MYLICON) 01-12 tablet (80 st 80 MG 00:00: 00:00 mg total) Hospit a chewable 00 :00 every 6 l tablet (six) hours as needed for flatulence for up to 30 days. riFAXimin 2019- No [id number] 550mg Q.5D Take 1 [facility] (XIFAXAN) 01-[address] 550 mg 00:00: 00:00 (550 mg [facility]ospita tablet 00 :00 total) by l mouth 2 (two) times a day for 30 days. sodium 2019- No [id number] 1950mg Q.5D Take 3 M [facility]i bicarbonate 01-[address] 650 mg 00:00: 00:00 (1,950 mg Hospi ta tablet 00 :00 total) by l mouth 2 (two) times a day for 30 days. tamsulosin 2019- No .4mg QD Take 1 [facility] (FLOMAX) 01-[address] 0.4 mg 00:00: 00:00 (0.4 mg [facility]ospita capsule 00 :00 total) by l mouth daily with dinner for 30 days. ursodioL 2019- No [id number] 300mg Q.5D Take 1 [facility] (ACTIGALL) 01-[address] 300 mg 00:00: 00:00 (300 mg [facility]osp[facility] capsule 00 :00 total) by l mouth 2 (two) times a day for 30 days. venlafaxine 2020- No 75mg Q.5D Take 1 [facility] (EFFEXOR) 01-12 10-21 tablet (75 st 75 MG 00:00: 00:00 mg total) Hospit a tablet 00 :00 by mouth 2 l (two) times a day with meals for 30 days. cefdinir No Twice [facility] (OMNICEF) 2 03-08 [facility] - [facility] mg/5 mL 00:00: 00:00 [facility] al suspension 00 :00 Center Ultravate Ultravate 2018-06 No Ultravate [place] 0.05 % 0.05 % -08 0.05 % da topical topical 00:00: topical Epis engraver copperplate ointment ointment 00 ointment al APPLY A [...] WEEKS OR 2 WEEKS DURATION DURATION DURATION Ativan 2016-06 Yes [place] 1 tablet [facility] 0-07 [place] l 02:01: 56 Ferrous 2016-06 Yes [place] 1 tablet [place] samantha Sulfate 0-07 [place] l 02:01: Adderall Yes [place] 1 tablet [facility] 7-12 [place] [facility] 00:00: Adderall Yes [place] 1 tablet [facility] 6-08 [place] [facility] 00:00: Flexeril Yes [place] 1 tablet [facility] 5-22 [place] [facility] 02:00: Atenolol 2016-0 Yes [place] 1 tablet [facility] 5-18 [place] [facility] 00:00: Wellbutrin 2016-0 Yes [place] 1 tablet M emoria XL 5-18 [place] in the l 00:00: morning Adderall Yes [place] 1 tablet Mem oria 5-05 [place] l 00:00: Adderall Yes [place] 1 tablet Mem oria 4-10 [place] l 00:00: Adderall 2017-0 Yes [place] 1 tablet Mem oria 3-09 [place] l 00:00: Flexeril 2017-0 Yes [place] 1 tablet Mem oria 3-08 [place] l 03:12: Adderall 2017-0 Yes [place] 1 tablet Mem oria 1-27 [place] l 00:00: Adderall 2016- Yes [place] 1 tablet Mem oria 2-29 [place] l 00:00: Adderall 2015- Yes [place] 1 tablet Mem oria 1-29 [place] l 00:00: Adderall 2016- Yes [place] 1 tablet Mem oria 1-21 [place] l 03:00: Ciprofloxac 0 Yes [place] 1 tablet Memoria in HCl 5-20 [place] l 00:00: Bentyl 2014-0 Yes [place] 1 tablet Memor ia 8-21 [place] l 02:12: [place] 52 Robaxin 0 Yes [place] 1 tablet Dewey samantha 8-20 [place] l 00:00: Acetaminoph 0 Yes [place] 1 tablet Memoria en-Codeine 8-20 [place] as needed l #3 00:00: Gypsum 2013-06 Yes Pachie 1 tablet Memori a 0-15 [place] as needed l 02:23: Fei 44 Viibryd 2013-06 Yes [place]achie as Memoria 0-06 [place] directed l 00:00: Ativan 0 Yes Pachie 1 tablet Memor ia 9-09 [place] l 02:34: [place] 22 Atarax 25 Atarax 25 No 1 TID [...] Date Status Commen ts Source Name Name PFIZER COVID-19 MRNA 2020-08-08 Completed Meth odist VACCINATION 00:00:00 [facility] PFIZER COVID-19 MRNA 2020-08-08 Completed Meth odist VACCINATION 00:00:00 [facility] PFIZER COVID-19 MRNA 2020-07-18 Completed Meth odist VACCINATION 00:00:00 [facility] PFIZER COVID-19 MRNA 2020-07-18 Completed Meth odist VACCINATION 00:00:00 [facility] Influenza Four-QIV 2019-07-12 Completed [facility] 3YR+ 00:00:00 Medical Center Vital Signs Vital Name Observation Time Observation Value Comments Source BP Diastolic 2019-04-19 00:00:00 108 mm[Hg] [place] [facility] Height 2019-04-19 00:00:00 67 [in_i] [place] [facility] BMI (Body Mass 2019-04-19 00:00:00 30 kg/m2 [facility] dental practitioner Index) [facility] BP Systolic 2019-04-19 00:00:00 162 mm[Hg] [place] [facility] Body Weight 2019-04-19 00:00:00 191.4 [lb_av] [place] [facility] Systolic blood 2020-11-17 10:25:00 98 mm[Hg] [facility] Diastolic blood 2020-11-17 10:25:00 65 mm[Hg] [facility] Heart rate 2020-11-17 10:25:00 80 /min [facility] Body temperature 2020-11-17 10:25:00 35.89 [facility] Body height 2020-11-17 10:25:00 170.2 cm [facility] Body weight 2020-11-17 10:25:00 83.008 kg [facility] BMI 2020-11-17 10:25:00 28.66 kg/m2 [facility] Oxygen saturation in 2020-11-17 10:25:00 100 /min [facility] - Arterial blood by Medical Ce nter Pulse oximetry Respiratory rate 2020-09-12 10:48:00 17 /min [facility] Systolic blood 2020-07-02 13:17:00 109 mm[Hg] [facility] pressure Diastolic blood 2020-07-02 13:17:00 63 mm[Hg] [facility] pressure Heart rate 2020-07-02 13:17:00 67 /min [facility] Body temperature 2020-07-02 13:17:00 36.22 [facility] Respiratory rate 2020-07-02 13:17:00 18 /min [facility] Body height 2020-07-02 13:17:00 170.2 cm [facility] Body weight 2020-07-02 13:17:00 68.493 kg [facility] BMI 2020-07-02 13:17:00 23.65 kg/m2 [facility] Oxygen saturation in 2020-07-02 13:17:00 97 /min [facility] Arterial blood by Pulse oximetry Weight 2016-10-27 18:15:00 [facility] Height 2016-10-27 18:15:00 [facility] Heart Rate 2016-10-27 18:15:00 [facility] Diastolic (mm Hg) 2016-10-27 18:15:00 [facility] [place] Systolic (mm Hg) 2016-10-27 18:15:00 [facility] [place] Weight 2016-08-18 13:30:00 [facility] 2016-08-18 13:30[facility] Heart Rate 2016-08-18 13:30:00 [facility] [place] Diastolic (mm Hg) 2016-08-18 13:30:00 [facility] [place] Systolic (mm Hg) 2016-08-18 13:30:00 [facility] Weight 2016-04-28 16:30:00 [facility] Height 2016-04-28 16:30:00 [facility] [place] Heart Rate 2016-04-28 16:30:00 [facility] [place] Diastolic (mm Hg) 2016-04-28 16:30:00 [facility] Systolic (mm Hg) 2016-04-28 16:30:00 [facility] [facility] [place] Weight 2016-02-08 16:00:00 [facility] [place] Height 2016-02-08 16:00:00 [facility] Heart Rate 2016-02-08 16:00:00 [facility] [place] Diastolic (mm Hg) 2016-02-08 16:00:00 [facility] [place] Systolic (mm Hg) 2016-02-08 16:00:00 [facility] Weight 2015-10-30 18:00:00 [facility] Height 2015-10-30 18:00:00 [facility] [place] Heart Rate 2015-10-30 18:00:00 [facility] Diastolic (mm Hg) 2015-10-30 18:00:00 [facility] [place] Systolic (mm Hg) 2015-10-30 18:00:00 [facility] Weight 2015-09-16 13:15:00 [facility] Height 2015-09-16 13:15:00 [facility] Heart Rate 2015-09-16 13:15:00 [facility] Diastolic (mm Hg) 2015-09-16 13:15:00 [facility] [place] Systolic (mm Hg) 2015-09-16 13:15:00 [facility] [facility] [place] Weight 2015-08-05 14:00:00 [facility] Height 2015-08-05 14:00:00 [facility] Heart Rate 2015-08-05 14:00:00 [facility] [place] Diastolic (mm Hg) 2015-08-05 14:00:00 [facility] [place] Systolic (mm Hg) 2015-08-05 14:00:00 [facility] [place] Weight 2015-04-23 18:45:00 [facility] Height 2015-04-23 18:45:00 [facility] Heart Rate 2015-04-23 18:45:00 [facility] [place] Diastolic (mm Hg) 2015-04-23 18:45:00 [facility] Systolic (mm Hg) 2015-04-23 18:45:00 [facility] Weight 2015-01-29 13:00:00 [facility] Height 2015-01-29 13:00:00 [facility] [place] Heart Rate 2015-01-29 13:00:00 [facility] [place] Diastolic (mm Hg) 2015-01-29 13:00:00 [facility] [place] Systolic (mm Hg) 2015-01-29 13:00:00 [facility] [facility] [place] Weight 2014-03-17 13:45:00 [facility] [place] Height 2014-03-17 13:45:00 [facility] [place] Heart Rate 2014-03-17 13:45:00 [facility] Diastolic (mm Hg) 2014-03-17 13:45:00 [facility] Systolic (mm Hg) 2014-03-17 13:45:00 [facility] [facility] [place] Weight 2014-02-12 13:45:00 [facility] [place] Height 2014-02-12 13:45:00 [facility] Heart Rate 2014-02-12 13:45:00 [facility] [place] Diastolic (mm Hg) 2014-02-12 13:45:00 [facility] [place] Systolic (mm Hg) 2014-02-12 13:45:00 [facility] Weight 2014-01-30 13:45:00 [facility] Height 2014-01-30 13:45:00 [facility] Heart Rate 2014-01-30 13:45:00 [facility] Diastolic (mm Hg) 2014-01-30 13:45:00 [facility] Systolic (mm Hg) 2014-01-30 13:45:00 [place] [facility] [place] Weight 2013-12-05 19:15:00 [facility] Height 2013-12-05 19:15:00 [facility] Heart Rate 2013-12-05 19:15:00 [facility] [place] Diastolic (mm Hg) 2013-12-05 19:15:00 [facility] [place] Systolic (mm Hg) 2013-12-05 19:15:00 [facility] [facility] [place] Weight 2013-10-21 13:15:00 [facility] Height 2013-10-21 13:15:00 [facility] Heart Rate 2013-10-21 13:15:00 [facility] Diastolic (mm Hg) 2013-10-21 13:15:00 [facility] Systolic (mm Hg) 2013-10-21 13:15:00 [facility] [facility] Weight 2013-08-05 16:00:00 [facility] [place] Height 2013-08-05 16:00:00 [facility] [place] Heart Rate 2013-08-05 16:00:00 [facility] [place] Diastolic (mm Hg) 2013-08-05 16:00:00 [facility] [place] Systolic (mm Hg) 2013-08-05 16:00:00 [place] [facility] [place] Weight 2013-08-05 15:00:00 [facility] Height 2013-08-05 15:00:00 [facility] [place] Heart Rate 2013-08-05 15:00:00 [facility] Diastolic (mm Hg) 2013-08-05 15:00:00 [facility] [place] Systolic (mm Hg) 2013-08-05 15:00:00 [facility] Procedures Procedure Date / Time Performing Clinician Source Performed CYCLOSPORINE LEVEL 2020-11-25 10:03:00 Liliam Vazquez [facility] BASIC METABOLIC PANEL (7) 2020-11-17 11:17:00 Liliam Vazquez [facility] HEPATIC FUNCTION PANEL 2020-11-17 11:17:00 Liliam Vazquez [facility] CBC W/PLT COUNT & AUTO 2020-11-17 11:17:00 Liliam Vazquez [facility] PROTHROMBIN TIME/INR 2020-11-17 11:17:00 Liliam Vazquez [facility] HCG, QUANTITATIVE, 2020-11-17 11:17:00 Liliam Vazquez [facility] CMV PCR, QUANTITATIVE 2020-09-12 03:53:00 Myron [facility] EBV VIRAL LOAD 2020-09-12 03:53:00 Myron [facility] VITAMIN D, 25-HYDROXY 2020-09-12 03:53:00 Myron [facility] ZINC 2020-09-12 03:53:00 Myron [facility] CYCLOSPORINE LEVEL 2020-09-12 03:53:[address] [facility] HSV 1/2 PCR, QUALITATIVE 2020-09-12 03:53:00 Shelli Sanches [facility] POCT-GLUCOSE METER 2020-09-11 21:48:00 Josette Brown [facility] POCT-GLUCOSE METER 2020-09-11 18:53:00 [facility] - 2020-09-11 10:17:[address] [facility] - ENDOSCOPY URL [facility] TISSUE EXAM 2020-09-11 09:24:00 Don [facility] UPPER ENDOSCOPY,BIOPSY 2020-09-11 09:00:00 Don [facility] CBC (HEMOGRAM ONLY) 2020-09-11 05:09:00 [facility] BASIC METABOLIC PANEL (7) 2020-09-11 05:09:00 [facility] PHOSPHORUS 2020-09-11 05:09:00 [facility] MAGNESIUM 2020-09-11 05:09:00 [facility] HEPATIC FUNCTION PANEL 2020-09-11 05:09:00 [facility] CYCLOSPORINE LEVEL 2020-09-11 05:09:[address]ás[address] [facility] GAMMA GLUTAMYL TRANSFERASE 2020-09-11 05:09:00 Shelli Sanches [facility] (GGT) [facility] TYPE AND SCREEN, AUTOMATED 2020-09-11 05:09:00 Andrea Santos [facility] POCT-GLUCOSE METER 2020-09-10 21:47:00 Josette Brown [facility] CT PELVIS WITHOUT IV 2020-09-10 18:45:00 [facility] CONTRAST [facility] POCT-GLUCOSE METER 2020-09-10 17:12:00 [facility] SCREEN, URINE 2020-09-10 12:56:00 [facility] POCT-GLUCOSE METER 2020-09-10 12:10:00 [facility] CBC (HEMOGRAM ONLY) 2020-09-10 05:35:00 [facility] BASIC METABOLIC PANEL (7) 2020-09-10 05:35:00 [facility] PHOSPHORUS 2020-09-10 05:35:00 [facility] MAGNESIUM 2020-09-10 05:35:00 [facility] HEPATIC FUNCTION PANEL 2020-09-10 05:35:00 [facility] POCT-GLUCOSE METER 2020-09-09 23:54:00 [facility] XR HIP 2 VIEWS LEFT 2020-09-09 20:11:00 Shahzad Dillon [facility] POCT-GLUCOSE METER 2020-09-09 17:32:00 [facility] POCT-GLUCOSE METER 2020-09-09 12:15:00 [facility] CYCLOSPORINE LEVEL 2020-09-09 05:21:00 [facility] CBC (HEMOGRAM ONLY) 2020-09-09 05:21:00 [facility] BASIC METABOLIC PANEL (7) 2020-09-09 05:21:00 [facility] PHOSPHORUS 2020-09-09 05:21:00 [facility] MAGNESIUM 2020-09-09 05:21:00 [facility] HEPATIC FUNCTION PANEL 2020-09-09 05:21:00 [facility] PROTHROMBIN TIME/INR 2020-09-09 05:21:00 [facility] HEMOGLOBIN A1C 2020-09-09 05:21:00 [facility] PO[facility]SE METER 2020-09-08 23:51:00 Maggy, [facility] MR ABDOMEN WITHOUT IV 2020-09-08 19:50:00 Maggy, Jazlyn Shavonne [facility] POCT-GLUCOSE METER 2020-09-08 12:18:00 Maggy, [facility] CYCLOSPORINE LEVEL 2020-09-08 05:55:00 [facility] CBC (HEMOGRAM ONLY) 2020-09-08 05:55:00 [facility] BASIC METABOLIC PANEL (7) 2020-09-08 05:55:00 [facility] PHOSPHORUS 2020-09-08 05:55:00 [facility] MAGNESIUM 2020-09-08 05:55:00 [facility] HEPATIC FUNCTION PANEL 2020-09-08 05:55:00 [facility] PROTHROMBIN TIME/INR 2020-09-08 05:55:00 [facility] POCT-GLUCOSE METER 2020-09-08 00:01:00 Maggy, [facility] POCT-GLUCOSE METER 2020-09-07 19:00:00 Maggy, [facility] POCT-GLUCOSE METER 2020-09-07 11:14:00 Jazlyn Winter [facility] CYCLOSPORINE LEVEL 2020-09-07 04:58:00 [facility] CBC (HEMOGRAM ONLY) 2020-09-07 04:58:00 [facility] BASIC METABOLIC PANEL (7) 2020-09-07 04:58:00 [facility] PHOSPHORUS 2020-09-07 04:58:00 [facility] MAGNESIUM 2020-09-07 04:58:00 [facility] HEPATIC FUNCTION PANEL 2020-09-07 04:58:00 [facility] PROTHROMBIN TIME/INR 2020-09-07 04:58:00 [facility] IRON, TIBC, % SAT. 2020-09-07 04:58:00 [facility] 2020-09-07 04:58:00 [facility] 2020-09-06 23:48:00 [facility] US ABDOMEN LIMITED 2020-09-06 23:48:00 [facility]OV2[facility] ([facility] & 2020-09-06 22:11:00 Theresa Naranjo [facility] - REF LABS) [facility] COMPREHENSIVE METABOLIC 2020-09-06 21:57:00 Theresa Naranjo [facility] CBC W/PLT COUNT & AUTO 2020-09-06 21:57:00 Theresa Naranjo [facility] DIFFERENTIAL [facility] PROTHROMBIN TIME/INR 2020-09-06 21:57:00 DoylineTheresa [facility] PHOSPHORUS 2020-09-06 21:57:00 Theresa Naranjo [facility] MAGNESIUM 2020-09-06 21:57:00 Chu Theresa [facility] POCT-GLUCOSE METER 2020-09-06 21:04:00 Cande Sandoval [facility] HEPATITIS A ANTIBODY, IGG 2020-08-03 11:01:00 Blair Orellana [facility] BASIC METABOLIC PANEL (7) 2020-08-03 11:01:00 Blair Orellana [facility] HEPATIC FUNCTION PANEL 2020-08-03 11:01:00 Blair Orellana [facility] CBC W/PLT COUNT & AUTO 2020-08-03 11:01:00 Blair Orellana CH [facility] PROTHROMBIN TIME/INR 2020-08-03 11:01:00 Blair Orellana [facility] CYCLOSPORINE LEVEL 2020-08-03 11:01:00 Blair Orellana [facility] HEPATITIS B SURFACE 2020-08-03 11:01:00 Blair Orellana [facility] ANTIBODY [facility] HEPATITIS B SURFACE 2020-08-03 11:01:00 Blair Orellana [facility] ANTIGEN [facility] HEPATITIS B CORE ANTIBODY, 2020-08-03 11:01:[address] [facility] MISCELLANEOUS LAB ORDER 2020-08-03 11:01:00 Blair Orellana C [facility] HC COMPLETE BLD COUNT 2020-07-09 13:26:00 Pedro Perez [facility] W/AUTO DIFF COMPREHENSIVE METABOLIC 2020-07-09 13:26:00 Pedro Perez [facility] PANEL MAGNESIUM LEVEL 2020-07-09 13:26:00 Pedro Perez [facility] PROTHROMBIN TIME WITH INR 2020-07-09 13:26:00 Pedro Perez [facility] CYCLOSPORINE LEVEL, TROUGH 2020-07-09 13:26:00 [facility] ESTIMATED GFR 2020-07-09 13:26:00 [facility] HC COMPLETE BLD COUNT 2020-07-02 13:04:00 [facility] W/AUTO DIFF COMPREHENSIVE METABOLIC 2020-07-02 13:04:00 Chris, [facility] PANEL MAGNESIUM LEVEL 2020-07-02 13:04:00 [facility] PROTHROMBIN TIME WITH INR 2020-07-02 13:04:00 ChrisPedro rahman [facility] CYCLOSPORINE LEVEL, TROUGH 2020-07-02 13:04:00 Chris, [facility] MISCELLANEOUS REFERRAL 2020-07-02 13:04:00 Chris, [facility] TEST ESTIMATED GFR 2020-07-02 13:04:00 [facility] HC COMPLETE BLD COUNT 2020-05-29 13:30:00 [facility] W/AUTO DIFF COMPREHENSIVE METABOLIC 2020-05-29 13:30:00 Chris, [facility] PANEL MAGNESIUM LEVEL 2020-05-29 13:30:00 [facility] PROTHROMBIN TIME WITH INR 2020-05-29 13:30:00 ChrisPedro bates [facility] CYCLOSPORINE LEVEL, TROUGH 2020-05-29 13:30:00 [facility] ESTIMATED GFR 2020-05-29 13:30:00 [facility] HC COMPLETE BLD COUNT 2020-05-11 13:36:00 [facility] W/AUTO DIFF COMPREHENSIVE METABOLIC 2020-05-11 13:36:00 [facility] PANEL MAGNESIUM LEVEL 2020-05-11 13:36:00 [facility] PROTHROMBIN TIME WITH INR 2020-05-11 13:36:00 [facility] CYCLOS[facility] LEV[facility], TROUGH 2020-05-11 13:36:00 [facility] jamie [facility] MISCELLANEOUS REFERRAL 2020-05-11 13:36:00 Chris, [facility] TEST HEMOGLOBIN A1C 2020-05-11 13:36:00 Chris, [facility] LIPID PANEL 2020-05-11 13:36:00 Chris, [facility] FATTY ACID PROFILE, 2020-05-11 13:36:00 [facility] ESSENTIAL, S VITAMIN B1 LEVEL, WHOLE 2020-05-11 13:36:00 [facility] BLOOD VITAMIN A LEVEL, PLASMA OR 2020-05-11 13:36:00 [facility] SERUM VITAMIN D 25 HYDROXY LEVEL 2020-05-11 13:36:00 [facility] VITAMIN D 1,25 DIHYDROXY 2020-05-11 13:36:00 [facility] LEVEL, SERUM VITAMIN C LEVEL, PLASMA 2020-05-11 13:36:00 [facility] C-REACTIVE PROTEIN 2020-05-11 13:36:00 [facility] SEDIMENTATION RATE 2020-05-11 13:36:00 [facility] THYROID STIMULATING 2020-05-11 13:36:00 [facility] HORMONE ZINC LEVEL, SERUM 2020-05-11 13:36:00 [facility] SELENIUM, SERUM 2020-05-11 13:36:00 [facility] spital COPPER LEVEL, SERUM 2020-05-11 13:36:00 [facility] IRON LEVEL 2020-05-11 13:36:00 [facility] spital ESTIMATED GFR 2020-05-11 13:36:00 Chris, [facility] HC COMPLETE BLD COUNT 2020-04-30 12:53:00 [facility] W/AUTO DIFF COMPREHENSIVE METABOLIC 2020-04-30 12:53:00 [facility] PANEL MAGNESIUM LEVEL 2020-04-30 12:53:00 [facility] PROT[facility]BIN TIME WITH INR 2020-04-30 12:53:00 Pedro Perez [facility] [id number] TACROLIMUS LEVEL, 2020-04-30 12:53:00 Chris, [facility] RANDOM ESTIMATED GFR 2020-04-30 12:53:00 Chris, [facility] CYCLOSPORINE LEVEL, TROUGH 2020-04-30 12:53:00 Chris, [facility] MISCELLANEOUS REFERRAL 2020-04-27 14:00:00 Chris, [facility] TEST CYCLOSPORINE LEVEL, TROUGH 2020-04-27 14:00:00 [facility] [id number] TACROLIMUS LEVEL, 2020-04-27 14:00:00 Chris, [facility] RANDOM PROTHROMBIN TIME WITH INR 2020-04-27 14:00:00 ChrisPedro bates [facility] MAGNESIUM LEVEL 2020-04-27 14:00:00 Chris, [facility] COMPREHENSIVE METABOLIC 2020-04-27 14:00:00 Chris, [facility] PANEL HC COMPLETE BLD COUNT 2020-04-27 14:00:00 [facility] DIFF ESTIMATED GFR 2020-04-27 14:00:00 Chris, [facility] MISCELLANEOUS REFERRAL 2020-04-23 13:50:00 [facility] CYCLOSPORINE LEVEL, TROUGH 2020-04-23 13:50:00 Chris, [facility] [id number] TACROLIMUS LEVEL, 2020-04-23 13:50:00 Chris, [facility] RANDOM PROTHROMBIN TIME WITH INR 2020-04-23 13:50:00 ChrisPedro rahman [facility] MAGNESIUM LEVEL 2020-04-23 13:50:00 [facility]OLIC 2020-04-23 13:50:00 Chris, [facility] PANEL HC COMPLETE BLD COUNT 2020-04-23 13:50:00 [facility] W/AUTO DIFF ESTIMATED GFR 2020-04-23 13:50:00 [facility] HC COMPLETE BLD COUNT 2020-04-20 13:30:00 [facility] W/AUTO DIFF COMPREHENSIVE METABOLIC 2020-04-20 13:30:00 Chris, [facility] PANEL MAGNESIUM LEVEL 2020-04-20 13:30:00 [facility] PROTHROMBIN TIME WITH INR 2020-04-20 13:30:00 ChrisPedro bates [facility] CYCLOSPORINE LEVEL, TROUGH 2020-04-20 13:30:00 [facility] ESTIMATED GFR 2020-04-20 13:30:00 [facility] MISCELLANEOUS REFERRAL 2020-04-20 13:23:00 Chris, [facility] TEST CYCLOSPORINE LEVEL, RANDOM 2020-04-16 19:25:00 [facility] HC COMPLETE BLD COUNT 2020-04-16 12:58:00 [facility] W/AUTO DIFF COMPREHENSIVE METABOLIC 2020-04-16 12:58:00 [facility] PANEL MAGNESIUM LEVEL 2020-04-16 12:58:00 [facility] PROTHROMBIN TIME WITH INR 2020-04-16 12:58:00 ChrisPedro benson [facility] MISCELLANEOUS REFERRAL 2020-04-16 12:58:00 [facility] TEST ESTIMATED GFR 2020-04-16 12:58:00 [facility] HC COMPLETE BLD COUNT 2020-04-13 13:57:00 [facility] W/AUTO DIFF COMPREHENSIVE METABOLIC 2020-04-13 13:57:00 [facility] PANEL MAGNESIUM LEVEL 2020-04-13 13:57:00 [facility] PROTHROMBIN TIME WITH INR 2020-04-13 13:57:00 ChrisPedro bates Ma [facility] CYCLOSPORINE LEVEL, TROUGH 2020-04-13 13:57:00 Chris, [facility] ESTIMATED GFR 2020-04-13 13:57:00 [facility] HC COMPLETE BLD COUNT 2020-04-10 12:46:00 [facility] W/AUTO DIFF COMPREHENSIVE METABOLIC 2020-04-10 12:46:00 Chris, [facility] PANEL MAGNESIUM LEVEL 2020-04-10 12:46:00 [facility] PROTHROMBIN TIME WITH INR 2020-04-10 12:46:00 ChrisPedro bates [facility] CYCLOSPORINE LEVEL, TROUGH 2020-04-10 12:46:00 [facility] ESTIMATED GFR 2020-04-10 12:46:00 [facility] HC COMPLETE BLD COUNT 2020-04-09 12:40:00 [facility] W/AUTO DIFF COMPREHENSIVE METABOLIC 2020-04-09 12:40:00 [facility] PANEL MAGNESIUM LEVEL 2020-04-09 12:40:00 [facility] PROTHROMBIN TIME WITH INR 2020-04-09 12:40:00 ChrisPedro rahman [facility] CYCLOSPORINE LEVEL, TROUGH 2020-04-09 12:40:00 [facility] ESTIMATED GFR 2020-04-09 12:40:00 [facility] HC COMPLETE BLD COUNT 2020-04-06 12:45:00 [facility] W/AUTO DIFF COMPREHENSIVE METABOLIC 2020-04-06 12:45:00 [facility] PANEL MAGNESIUM LEVEL 2020-04-06 12:45:00 [facility] PROTHROMBIN TIME WITH INR 2020-04-06 12:45:00 ChrisPedro bates [facility] [id number] TACROLIMUS LEVEL, 2020-04-06 12:45:00 [facility] Hospital[facility] RANDOM ESTIMATED GFR 2020-04-06 12:45:00 [facility] Hospital[facility] CYCLOSPORINE LEVEL, RANDOM 2020-04-06 12:26:00 [facility] Hospital[facility] POC GLUCOSE 2020-04-01 16:45:00 [facility], [facility] HC COMPLETE BLD COUNT 2020-04-01 12:42:00 [facility] W/AUTO DIFF CYCLOSPORINE LEVEL, TROUGH 2020-04-01 12:42:00 [facility] POC GLUCOSE 2020-04-01 11:50:00 [facility]astard, [facility] COMPREHENSIVE METABOLIC 2020-04-01 09:00:00 [facility] PANEL ESTIMATED GFR 2020-04-01 09:00:00 [facility] ospital POC GLUCOSE 2020-04-01 02:18:00 [facility]ard[facility] POC GLUCOSE 2020-03-31 22:01:00 [facility] POC GLUCOSE 2020-03-31 16:32:00 [facility] POC GLUCOSE 2020-03-31 11:46:00 [facility] POC GLUCOSE 2020-03-31 01:47:00 [facility] POC GLUCOSE 2020-03-30 22:16:00 [facility] POC GLUCOSE 2020-03-30 16:51:00 [facility] POC GLUCOSE 2020-03-30 11:38:00 [facility] HC COMPLETE BLD COUNT 2020-03-30 10:50:00 [facility] W/AUTO DIFF CYCLOSPORINE LEVEL, RANDOM 2020-03-30 10:50:00 [facility] System COMPREHENSIVE METABOLIC 2020-03-30 05:00:00 [facility] PANEL ESTIMATED GFR 2020-03-30 05:00:00 [facility] POC GLUCOSE 2020-03-30 01:49:00 Tastard, [facility] POC GLUCOSE 2020-03-29 22:13:00 Tastard, Ne[facility]ima [facility] POC GLUCOSE 2020-03-29 17:01:00 Tastard, Ne[facility]ima [facility] POC GLUCOSE 2020-03-29 11:50:00 Tastard, [facility]ima [facility] POC GLUCOSE 2020-03-29 02:02:00 Tastard, [facility]ima [facility] POC GLUCOSE 2020-03-28 22:28:00 Tastard, [facility]ima [facility] POC GLUCOSE 2020-03-28 17:00:00 Tastard, [facility]ima [facility] POC GLUCOSE 2020-03-28 11:24:00 Tastard, [facility]ima [facility] POC GLUCOSE 2020-03-28 01:41:00 Tastard, [facility]ima [facility] POC GLUCOSE 2020-03-27 22:02:00 Tastard, [facility] POC GLUCOSE 2020-03-27 16:26:00 Tastard, [facility] POC GLUCOSE 2020-03-27 12:39:00 Tastard, Neelima [facility] HC COMPLETE BLD COUNT 2020-03-27 12:08:00 [facility] W/AUTO DIFF CYCLOSPORINE LEVEL, RANDOM 2020-03-27 12:08:00 [facility] COMPREHENSIVE METABOLIC 2020-03-27 05:00:00 [facility] PANEL ESTIMATED GFR 2020-03-27 05:00:00 [facility] POC GLUCOSE 2020-03-27 01:55:00 Tastard, Neelima [facility] POC GLUCOSE 2020-03-26 21:46:00 Tastard, [facility] POC GLUCOSE 2020-03-26 15:48:00 Tastard, [facility]ima [facility] POC GLUCOSE 2020-03-26 12:32:00 Tastard, Ne[facility]ima [facility] CYCLOSPORINE LEVEL, TROUGH 2020-03-26 10:25:00 [facility] POC GLUCOSE 2020-03-26 02:01:00 Tastard, [facility]ima [facility] POC GLUCOSE 2020-03-26 01:50:00 Tastard, [facility] POC GLUCOSE 2020-03-25 21:33:00 Tastard, [facility] POC GLUCOSE 2020-03-25 16:46:00 Tastard, [facility] POC GLUCOSE 2020-03-25 11:20:00 Tastard, Neelima V. [facility] HC COMPLETE BLD COUNT 2020-03-25 10:45:00 [facility] W/AUTO DIFF CYCLOSPORINE LEVEL, RANDOM 2020-03-25 10:45:00 [facility] COMPREHENSIVE METABOLIC 2020-03-25 05:00:00 [facility] PANEL ESTIMATED GFR 2020-03-25 05:00:00 [facility] POC GLUCOSE 2020-03-25 01:09:00 Tastard, Neelima [facility] POC GLUCOSE 2020-03-24 21:58:00 Tastard, [facility]ima [facility] POC GLUCOSE 2020-03-24 16:20:00 Tastard, [facility] POC GLUCOSE 2020-03-24 12:09:00 Tastard, Ne[facility]ima [facility] POC GLUCOSE 2020-03-24 02:00:00 Tastard, [facility] POC GLUCOSE 2020-03-23 22:01:00 Tastard, [facility] POC GLUCOSE 2020-03-23 16:51:00 Tastard, [facility]ima [facility] POC GLUCOSE 2020-03-23 11:42:00 Tastard, Neelima V. [facility] CBC WITH PLATELET AND 2020-03-23 11:00:00 Mattie Alvarenga [facility] DIFFERENTIAL COMPREHENSIVE METABOLIC 2020-03-23 11:00:00 Mattie Alvarenga [facility] PANEL CYCLOSPORINE LEVEL, TROUGH 2020-03-23 11:00:00 Mattie Alvarenga [facility] ESTIMATED GFR 2020-03-23 11:00:00 Mattie Alvarenga [facility] MANUAL DIFFERENTIAL 2020-03-23 11:00:00 Mattie Alvarenga [facility] POC GLUCOSE 2020-03-23 03:37:00 Tastard, Neelima V. [facility] POC GLUCOSE 2020-03-22 21:50:00 Tastard, Neelima V. [facility] POC GLUCOSE 2020-03-22 16:36:00 Tastard, Ne[facility]ima [facility] POC GLUCOSE 2020-03-22 11:45:00 Tastard, Neelima V. [facility] POC GLUCOSE 2020-03-22 01:52:00 Tastard, Ne[facility]ima [facility] POC GLUCOSE 2020-03-21 21:24:00 Tastard, [facility]ima [facility] POC GLUCOSE 2020-03-21 16:55:00 Tastard, [facility] POC GLUCOSE 2020-03-21 11:39:00 Tastard, [facility] POC GLUCOSE 2020-03-21 01:38:00 Tastard, [facility] POC GLUCOSE 2020-03-20 22:05:00 Tastard, Neelima [facility]. [facility] POC GLUCOSE 2020-03-20 16:55:00 Tastard, Neelima [facility] POC GLUCOSE 2020-03-20 11:42:00 Tastard, Neelima [facility] HC COMPLETE BLD COUNT 2020-03-20 10:55:00 Mattie Alvarenga [facility] W/AUTO DIFF CYCLOSPORINE LEVEL, TROUGH 2020-03-20 10:55:00 Mattie Alvarenga [facility] COMPREHENSIVE METABOLIC 2020-03-20 09:00:00 Mattie Alvarenga [facility] PANEL ESTIMATED GFR 2020-03-20 09:00:00 Mattie Alvarenga [facility] POC GLUCOSE 2020-03-20 01:37:00 Tastard, Neelima [facility] POC GLUCOSE 2020-03-19 21:11:00 Tastard, [facility] POC GLUCOSE 2020-03-19 16:53:00 Tastard, [facility] POC GLUCOSE 2020-03-19 11:42:00 Tastard, [facility] POC GLUCOSE 2020-03-19 02:13:00 Tastard, [facility] POC GLUCOSE 2020-03-18 21:45:00 Tastard, [facility] POC GLUCOSE 2020-03-18 17:07:00 Tastard, [facility] POC GLUCOSE 2020-03-18 11:15:00 Tastard, Neelima V. [facility] HC COMPLETE BLD COUNT 2020-03-18 10:30:00 [facility]FF CYCLOSPORINE LEVEL, TROUGH 2020-03-18 10:30:00 [facility] COMPREHENSIVE METABOLIC 2020-03-18 09:00:00 [facility] PANEL ESTIMATED GFR 2020-03-18 09:00:00 Lyle [facility] POC GLUCOSE 2020-03-18 02:19:00 Tastard, Neelima Isadora Lugo spital MRI LUMBAR SPINE WO 2020-03-18 01:20:00 [facility] CONTRAST MRI THORACIC SPINE WO 2020-03-18 01:00:00 [facility] CONTRAST POC GLUCOSE 2020-03-17 21:42:00 Tastard, Neelima V. [facility] POC GLUCOSE 2020-03-17 17:05:00 Tastard, [facility] POC GLUCOSE 2020-03-17 11:43:00 Tastard, [facility] POC GLUCOSE 2020-03-17 02:07:00 Tastard, [facility] POC GLUCOSE 2020-03-16 22:11:00 Tastard, Neelima VMalik Lug[facility] spital POC GLUCOSE 2020-03-16 17:07:00 Tastard, Neelima VMalik Lug[facility] spital HC COMPLETE BLD COUNT 2020-03-16 12:10:00 Mattie Alvarenga [facility] W/AUTO DIFF CYCLOSPORINE LEVEL, TROUGH 2020-03-16 12:10:00 [facility] CYTOMEGALOVIRUS BY PCR 2020-03-16 12:10:00 [facility] POC GLUCOSE 2020-03-16 11:38:00 Tastard, Neelima VMalik Lugo spital COMPREHENSIVE METABOLIC 2020-03-16 09:00:00 [facility] PANEL ESTIMATED GFR 2020-03-16 09:00:00 Mattie Alvarenga Malik [facility] POC GLUCOSE 2020-03-16 02:00:00 Tastard, Neelima VMalik Lug[facility] spital POC GLUCOSE 2020-03-15 21:24:00 Tastard, Neelima VMalik [facility] spital POC GLUCOSE 2020-03-15 16:38:00 Tastard, [facility]elima [facility] POC GLUCOSE 2020-03-15 11:12:00 Tastard, Neelima VMalik Lugo spital FOLATE LEVEL 2020-03-15 09:00:00 [facility] ospital VITAMIN B12 LEVEL 2020-03-15 09:00:00 [facility] POC GLUCOSE 2020-03-15 01:37:00 Tastard, Neelima V. [facility] POC GLUCOSE 2020-03-14 21:18:00 Tastard, Neelima V. [facility] POC GLUCOSE 2020-03-14 16:27:00 Tastard, Neelima VMalik Lugo spital POC GLUCOSE 2020-03-14 11:45:00 Tastard, Neelima V. Hindu spital CYCLOSPORINE LEVEL, TROUGH 2020-03-14 11:05:00 [facility] HC COMPLETE BLD COUNT 2020-03-14 11:05:00 Mattie Alvarenga [facility] W/AUTO DIFF COMPREHENSIVE METABOLIC 2020-03-14 11:05:00 [facility] 2020-03-14 11:05:00 [facility] 2020-03-14 11:05:00 [facility] POC GLUCOSE 2020-03-14 01:33:00 Tastard, Neelima V. Hindu spital POC GLUCOSE 2020-03-13 22:15:00 [facility] 2020-03-13 17:41:00 Tastard, Neelima V. [facility] PANEL ESTIMATED GFR 2020-03-13 17:41:00 Tastard, Neelima V. [facility] POC GLUCOSE 2020-03-13 17:01:00 Tastard, Neelima V. [facility] POC GLUCOSE 2020-03-13 11:30:00 Tastard, Neelima V. [facility] HC COMPLETE BLD COUNT 2020-03-13 05:20:00 [facility] COMPREHENSIVE METABOLIC 2020-03-13 05:20:00 [facility] PANEL CYCLOSPORINE LEVEL, TROUGH 2020-03-13 05:20:00 [facility] POC GLUCOSE 2020-03-13 01:51:00 Tastard, Neelima V. [facility] POC GLUCOSE 2020-03-12 21:12:00 Tastard, Neelima V. [facility] POC GLUCOSE 2020-03-12 16:48:00 Tastard, Neelima V. [facility] POC GLUCOSE 2020-03-12 11:24:00 Tastard, Neelima [facility] POC GLUCOSE 2020-03-12 01:21:00 Tastard, Neelima [facility] POC GLUCOSE 2020-03-11 22:02:00 Tastard, Neelima [facility] POC GLUCOSE 2020-03-11 21:31:00 Tastard, Neelima [facility] POC GLUCOSE 2020-03-11 17:11:00 Tastard, Neelima [facility] POC GLUCOSE 2020-03-11 16:20:00 Tastard, Neelima V. [facility] POC GLUCOSE 2020-03-11 11:35:00 Tastard, Neelima V. [facility] HC COMPLETE BLD COUNT 2020-03-11 11:30:00 Mattie Alvarenga [facility] W/AUTO DIFF CYCLOSPORINE LEVEL, TROUGH 2020-03-11 11:30:00 Mattie Alvarenga [facility] COMPREHENSIVE METABOLIC 2020-03-11 09:00:00 Mattie Alvarenga [facility] PANEL ESTIMATED GFR 2020-03-11 09:00:00 Mattie Alvarenga [facility] POC GLUCOSE 2020-03-11 01:32:00 Tastard, Neelima V. [facility] POC GLUCOSE 2020-03-10 22:14:00 Tastard, Neelima V. [facility] POC GLUCOSE 2020-03-10 16:58:00 Tastard, Neelima V. [facility] POC GLUCOSE 2020-03-10 11:49:00 Tastard, Neelima V. [facility] POC GLUCOSE 2020-03-10 01:46:00 Tastard, Neelima V. [facility] POC GLUCOSE 2020-03-09 21:29:00 Tastard, Neelima V. [facility] POC GLUCOSE 2020-03-09 17:04:00 Tastard, Neelima V. [facility] POC GLUCOSE 2020-03-09 12:30:00 [facility] COMPLETE BLD [facility] 2020-03-09 10:30:00 Mattie Alvarenga [facility] W/AUTO DIFF COMPREHENSIVE METABOLIC 2020-03-09 10:30:00 Mattie Alvarenga [facility] PANEL CYTOMEGALOVIRUS BY PCR 2020-03-09 10:30:00 Mattie Alvarenga [facility] CYCLOSPORINE LEVEL, TROUGH 2020-03-09 10:30:00 Mattie Alvarenga [facility] ESTIMATED GFR 2020-03-09 10:30:00 Mattie Alvarenga [facility] POC GLUCOSE 2020-03-09 01:50:00 Tastard, Neelima V. [facility] POC GLUCOSE 2020-03-08 21:49:00 Tastard, Neelima V. [facility] POC GLUCOSE 2020-03-08 16:32:00 Tastard, Neelima V. [facility] POC GLUCOSE 2020-03-08 11:26:00 Tastard, Neelima V. [facility] POC GLUCOSE 2020-03-08 01:32:00 Tastard, Neelima V. [facility] POC GLUCOSE 2020-03-07 22:04:00 Tastard, Neelima V. [facility] POC GLUCOSE 2020-03-07 15:58:00 Tastard, Neelima V. [facility] POC GLUCOSE 2020-03-07 11:21:00 Tastard, Neelima V. [facility] POC GLUCOSE 2020-03-07 02:28:00 Tastard, Neelima V. [facility] POC GLUCOSE 2020-03-06 21:37:00 Tastard, Neelima V. [facility] POC GLUCOSE 2020-03-06 16:23:00 Tastard, Neelima V. Hindu [facility] POC GLUCOSE 2020-03-06 11:46:00 [facility] 2020-03-06 11:03:00 Mattie Alvarenga [facility] W/AUTO DIFF COMPREHENSIVE METABOLIC 2020-03-06 11:03:00 [facility] PANEL CYCLOSPORINE LEVEL, TROUGH 2020-03-06 11:03:00 Mattie Alvarenga [facility] ESTIMATED GFR 2020-03-06 11:03:00 Mattie Alvarenga [facility] POC GLUCOSE 2020-03-06 01:48:00 Tastard, Neelima VMalik Lugo spital POC GLUCOSE 2020-03-05 16:52:00 Tastard, Neelima VMalik Lugo spital POC GLUCOSE 2020-03-05 11:42:00 Tastard, [facility]ik [facility] CY[facility], TROUGH 2020-03-05 11:00:00 Mattie [facility]ga [facility] POC GLUCOSE 2020-03-05 01:35:00 TasNeelima anderson Ho spital POC GLUCOSE 2020-03-04 21:44:00 TasNeelima anderson spital POC GLUCOSE 2020-03-04 16:30:00 TasNeelima anderson spital POC GLUCOSE 2020-03-04 11:32:00 Neelima Longo spital [id number] TACROLIMUS LEVEL, 2020-03-04 10:35:00 Mattie Alvarenga [facility] TROUGH COMPREHENSIVE METABOLIC 2020-03-04 09:00:00 Mattie Alvarenga [facility] PANEL ESTIMATED GFR 2020-03-04 09:00:00 Mattie Alvarenga Malik [facility] POC GLUCOSE 2020-03-04 02:03:00 Neelima Longo spital POC GLUCOSE 2020-03-03 22:20:[address] THORACIC SPINE WO 2020-03-03 21:46:15 [facility] CONTRAST XR RIBS 2 VW RIGHT 2020-03-03 21:13:45 [facility] POC GLUCOSE 2020-03-03 16:55:00 Neelima Longo spital POC GLUCOSE 2020-03-03 11:37:00 [facility] CY[facility] L[facility], TROUGH 2020-03-03 10:45:00 [facility] DONOR SPECIFIC ANTIBODY 2020-03-03 10:45:00 Mattie Alvarenga [facility] POC GLUCOSE 2020-03-03 01:50:00 [facility] ABDOMINAL DOPPLER 2020-03-03 00:30:00 Mattie Alvarenga [facility] POC GLUCOSE 2020-03-02 22:10:00 TasNeelima anderson spital POC GLUCOSE 2020-03-02 16:57:00 Neelima Longo spital POC GLUCOSE 2020-03-02 11:44:00 TasNeelima anderson spital HC COMPLETE BLD COUNT 2020-03-02 10:45:00 Mattie Alvarenga [facility] W/AUTO DIFF CYTOMEGALOVIRUS BY PCR 2020-03-02 10:45:00 Mattie Alvarenga [facility] CYCLOSPORINE LEVEL, TROUGH 2020-03-02 10:45:00 [facility] COMPREHENSIVE METABOLIC 2020-03-02 09:00:00 [facility]IM[facility] GFR 2020-03-02 09:00:00 Mattie Alvarenga [facility] CT ABDOMEN WO CONTRAST 2020-03-02 03:45:01 [facility] 2020-03-02 01:40:00 Tastard, Neelima V. Hindu Ho spital POC GLUCOSE 2020-03-01 21:40:00 Tastard, Neelima V. [facility] POC GLUCOSE 2020-03-01 16:26:00 Tastard, Neelima V. Hindu spital POC GLUCOSE 2020-03-01 11:44:00 Tastard, Neelima V. Hindu spital CYCLOSPORINE LEVEL, TROUGH 2020-03-01 10:30:00 [facility] POC GLUCOSE 2020-03-01 01:19:00 Tastard, Neelima V. Hindu spital POC GLUCOSE 2020-02-29 21:44:00 Tastard, Neelima V. Hindu [facility] POC GLUCOSE 2020-02-29 16:37:00 Tastard, Neelima V. Hindu spital POC GLUCOSE 2020-02-29 11:40:00 Tastard, Neelima V. Hindu spital CYCLOSPORINE LEVEL, TROUGH 2020-02-29 10:35:00 Mattie [facility]ga [facility] POC GLUCOSE 2020-02-29 01:43:00 Tastard, Neelima V. Hindu [facility] POC GLUCOSE 2020-02-28 21:52:00 Tastard, Neelima V. Hindu spital POC GLUCOSE 2020-02-28 17:05:00 Tastard, Neelima V. Hindu sp[facility] POC GLUCOSE 2020-02-28 11:21:00 Tastard, Neelima V. Hindu sp[facility] HC COMPLETE BLD COUNT 2020-02-28 11:15:00 [facility] W/AUTO DIFF COMPREHENSIVE METABOLIC 2020-02-28 11:15:00 [facility] PANEL ESTIMATED GFR 2020-02-28 11:15:00 [facility] POC GLUCOSE 2020-02-28 02:24:00 Tastard, Neelima V. [facility] POC GLUCOSE 2020-02-27 21:24:00 Tastard, Neelima V. [facility] POC GLUCOSE 2020-02-27 16:23:00 Tastard, Neelima V. [facility] POC GLUCOSE 2020-02-27 11:17:00 Tastard, Neelima V. [facility] POC GLUCOSE 2020-02-27 02:30:00 Tastard, Neelima V. [facility] POC GLUCOSE 2020-02-26 21:48:00 Tastard, Neelima V. [facility] POC GLUCOSE 2020-02-26 16:47:00 Tastard, Neelima V. [facility] POC GLUCOSE 2020-02-26 11:13:00 Tastard, Neelima V. Hindu Ho spital CBC WITH PLATELET AND 2020-02-26 10:45:00 [facility] DIFFERENTIAL CYCLOSPORINE LEVEL, TROUGH 2020-02-26 10:45:00 [facility] CYTOMEGALOVIRUS BY PCR 2020-02-26 10:45:00 [facility] COMPREHENSIVE METABOLIC 2020-02-26 09:00:00 [facility] PANEL ESTIMATED GFR 2020-02-26 09:00:00 [facility] POC GLUCOSE 2020-02-26 02:03:00 Tastard, Neelima V. [facility] POC GLUCOSE 2020-02-25 21:33:00 Tastard, Neelima V. [facility] POC GLUCOSE 2020-02-25 17:05:00 Tastard, Neelima V. [facility] POC GLUCOSE 2020-02-25 11:18:00 Tastard, Neelima V. [facility] POC GLUCOSE 2020-02-25 01:19:00 Tastard, Neelima V. [facility] POC GLUCOSE 2020-02-24 21:32:00 Tastard, Neelima V. [facility] POC GLUCOSE 2020-02-24 17:05:00 Tastard, Neelima V. [facility] POC GLUCOSE 2020-02-24 11:45:00 Tastard, Neelima V. Hindu Ho spital CYCLOSPORINE LEVEL, RANDOM 2020-02-24 11:00:00 [facility] HC COMPLETE BLD COUNT 2020-02-24 11:00:00 [facility] W/AUTO DIFF COMPREHENSIVE METABOLIC 2020-02-24 11:00:00 [facility] PANEL ESTIMATED GFR 2020-02-24 11:00:00 [facility] POC GLUCOSE 2020-02-24 02:16:00 Tastard, Neelima V. [facility] POC GLUCOSE 2020-02-23 21:40:00 Tastard, Neelima V. [facility] POC GLUCOSE 2020-02-23 16:22:00 Tastard, Neelima V. [facility] POC GLUCOSE 2020-02-23 11:16:00 Tastard, Neelima V. Hindu spital CYCLOSPORINE LEVEL, RANDOM 2020-02-23 10:45:00 [facility] POC GLUCOSE 2020-02-23 02:08:00 Tastard, Neelima V. [facility] POC GLUCOSE 2020-02-22 21:34:00 Tastard, Neelima V. [facility] POC GLUCOSE 2020-02-22 16:33:00 Tastard, Neelima V. [facility] POC GLUCOSE 2020-02-22 11:40:00 Tastard, Neelima V. [facility] Ho [facility] CYCLOSPORINE LEVEL, RANDOM 2020-02-22 11:07:00 [facility] POC GLUCOSE 2020-02-22 02:29:00 Tastard, Neelima V. [facility] POC GLUCOSE 2020-02-21 21:39:00 Tastard, Neelima V. Hindu sp[facility] POC GLUCOSE 2020-02-21 16:20:00 Tastard, Neelima V. Hindu spital POC GLUCOSE 2020-02-21 11:48:00 [facility]astard, [facility]HENS[facility] METABOLIC 2020-02-21 10:00:00 [facility] PANEL CYCLOSPORINE LEVEL, TROUGH 2020-02-21 10:00:00 [facility] HC COMPLETE BLD COUNT 2020-02-21 10:00:00 [facility] W/AUTO DIFF ESTIMATED GFR 2020-02-21 10:00:00 [facility] POC GLUCOSE 2020-02-21 01:37:00 Tastard, Neelima V. Hindu spital POC GLUCOSE 2020-02-20 21:45:00 Tastard, Neelima V. [facility] POC GLUCOSE 2020-02-20 16:45:00 Tastard, Neelima V. Hindu spital POC GLUCOSE 2020-02-20 11:07:00 Tastard, Neelima V. Hindu spital POC GLUCOSE 2020-02-20 01:50:00 Tastard, Neelima V. Hindu spital POC GLUCOSE 2020-02-19 21:31:00 Tastard, Neelima V. Hindu spital HC COMPLETE BLD COUNT 2020-02-19 16:42:00 [facility] W/AUTO DIFF POC GLUCOSE 2020-02-19 16:38:00 Tastard, Neelima V. Hindu spital POC GLUCOSE 2020-02-19 11:30:00 Tastard, Neelima V. Hindu spital POC GLUCOSE 2020-02-19 11:28:00 [facility]astard[facility] MAGNESIUM L[facility] 2020-02-19 10:30:00 [facility]a [facility] CYCLOSPORINE LEVEL, TROUGH 2020-02-19 10:30:00 Deep Run [facility] COMPREHENSIVE METABOLIC 2020-02-19 10:30:00 [facility] PANEL HC COMPLETE BLD COUNT 2020-02-19 10:30:00 Deep RunAna [facility] W/AUTO DIFF ESTIMATED GFR 2020-02-19 10:30:00 [facility] 2020-02-19 01:23:00 Tastard, Neelima V. Hindu Ho spital POC GLUCOSE 2020-02-18 21:30:00 Tastard, Neelima V. [facility] Ho [facility] POC GLUCOSE 2020-02-18 17:01:00 Tastard, Neelima V. [facility] POC GLUCOSE 2020-02-18 11:21:00 Tastard, Neelima V. [facility] POC GLUCOSE 2020-02-18 01:22:00 Tastard, Neelima V. [facility] POC GLUCOSE 2020-02-17 21:45:00 Tastard, Neelima V. [facility] POC GLUCOSE 2020-02-17 16:37:00 Tastard, Neelima V. [facility] POC GLUCOSE 2020-02-17 12:00:00 Tastard, Neelima V. [facility] HC COMPLETE BLD COUNT 2020-02-17 10:15:00 [facility] W/AUTO DIFF COMPREHENSIVE METABOLIC 2020-02-17 10:15:00 [facility] PANEL CYCLOSPORINE LEVEL, RANDOM 2020-02-17 10:15:00 [facility] ESTIMATED GFR 2020-02-17 10:15:00 [facility] ospital POC GLUCOSE 2020-02-16 22:21:00 Tastard, Neelima V. Hindu Ho spital URIC ACID LEVEL 2020-02-16 18:46:00 [facility] ospital POC GLUCOSE 2020-02-16 16:34:00 Tastard, Neelima V. [facility] POC GLUCOSE 2020-02-16 11:06:00 Tastard, Neelima V. [facility] Ho [facility] CYCLOSPORINE LEVEL, RANDOM 2020-02-16 10:00:00 [facility] POC GLUCOSE 2020-02-16 02:25:00 Tastard, Neelima V. [facility] POC GLUCOSE 2020-02-15 21:46:00 Tastard, Neelima V. [facility] POC GLUCOSE 2020-02-15 16:42:00 Tastard, Neelima V. [facility] POC GLUCOSE 2020-02-15 11:28:00 Tastard, Neelima V. [facility] Ho spital CYCLOSPORINE LEVEL, RANDOM 2020-02-15 [facility]:35[facility]-02-15 01:50:00 Tastard, [facility] XR ANKLE 1VW RIGHT 2020-02-15 00:41:40 Tastard, Neelima V[facility] XR FOOT 1VW RIGHT 2020-02-15 00:41:09 Tastard, Neelima V. [facility] POC GLUCOSE 2020-02-14 22:17:00 Tastard, [facility] POC GLUCOSE 2020-02-14 17:16:00 Tastard, [facility] POC GLUCOSE 2020-02-14 11:16:00 Tastard, [facility] CYCLOSPORINE LEVEL, TROUGH 2020-02-14 11:10:00 [facility] 2020-02[facility]14 09:00[facility] 2020-02-14 02:23:00 Tastard, [facility] POC GLUCOSE 2020-02-13 22:17:00 Tastard, [facility] NM GASTRIC EMPTYING 2020-02-13 19:37:59 [facility] 2020-02-13 11:22:00 Tastard, [facility] CBC WITH PLATELET AND 2020-02-13 10:30[facility]ABOLIC 2020-02-13 10:30:00 [facility] MAGNESIUM LEVEL 2020-02-13 10:30:[address] [facility]spital CYCLOSPORINE LEVEL, RANDOM 2020-02-13 10:30:00 [facility] 2020-02-13 10:30:00 [facility]SE 2020-02-13 01:47:00 Tastard, [facility] POC GLUCOSE 2020-02-12 22:04:00 Tastard, [facility] POC GLUCOSE 2020-02-12 17:03:00 Tastard, [facility] HC COMPLETE BLD COUNT 2020-02-12 12:25:00 [facility] W/AUTO DIFF COMPREHENSIVE METABOLIC 2020-02-12 12:25:00 [facility] PANEL MAGNESIUM LEVEL 2020-02-12 12:25:[facility] CYCLOSPORINE LEV[facility], RANDOM 2020-02-12 12:25:00 [facility] ESTIMATED GFR 2020-02-12 12:25:[address] [facility] POC GLUCOSE 2020-02-12 11:33:00 Tastard, [facility] POC GLUCOSE 2020-02-12 01:52:00 Tastard, [facility] POC GLUCOSE 2020-02-11 21:32:00 [facility]astard, [facility] POC GLUCOSE 2020-02-11 17:00:00 Tastard, [facility] POC GLUCOSE 2020-02-11 11:26:00 Tastard, [facility] HC COMPLETE BLD COUNT 2020-02-11 10:30[facility] COMPREHENSIVE METABOLIC 2020-02-11 10:30:00 [facility] PANEL MAGNESIUM LEVEL 2020-02-11 10:30:00 [facility]ital CYCLOSPORINE LEVEL, RANDOM 2020-02-11 10:30:00 [facility] CYTOMEGALOVIRUS BY PCR 2020-02-11 10:30:[address] [facility] NATO MCQUEEN VIRUS (EBV) 2020-02-11 10:30:[facility] 2020-02-11 10:30:00 [facility] POC GLUCOSE 2020-02-11 03:01:00 [facility] POC GLUCOSE 2020-02-10 21:49:00 [facility] US ABDOMINAL DOPPLER 2020-02-10 19:03:05 [facility] US ABDOMEN COMPLETE 2020-02-10 19:02:49 [facility] POC GLUCOSE 2020-02-10 18:29:00 Neelima Longo spital POC GLUCOSE 2020-02-10 11:39:00 Lester Enrique Ho spital Pedro HC COMPLETE BLD COUNT 2020-02-10 10:45:00 [facility] W/AUTO DIFF COMPREHENSIVE METABOLIC 2020-02-10 10:45:00 [facility] PANEL CYCLOSPORINE LEVEL, RANDOM 2020-02-10 10:45:00 [facility] ESTIMATED GFR 2020-02-10 10:45:00 [facility] POC GLUCOSE 2020-02-10 02:38:00 Lester Enrique spital Pedro POC GLUCOSE 2020-02-09 21:37:00 Lester Enrique Ho spital Pedro POC GLUCOSE 2020-02-09 16:44:00 Lester Enrique Ho spital Pedro POC GLUCOSE 2020-02-09 11:31:00 Lester Enrique Ho spital Pedro HC COMPLETE BLD COUNT 2020-02-09 10:30:00 [facility] W/AUTO DIFF COMPREHENSIVE METABOLIC 2020-02-09 10:30:00 [facility] PANEL CYCLOSPORINE LEVEL, RANDOM 2020-02-09 10:30:00 [facility] ESTIMATED GFR 2020-02-09 10:30:00 [facility] POC GLUCOSE 2020-02-09 02:33:00 Lester Enrique Ho spital Pedro POC GLUCOSE 2020-02-08 21:32:00 Lester Enrique Ho spital Pedro POC GLUCOSE 2020-02-08 15:52:00 Lester Enrique Juliocesar Vasquez POC GLUCOSE 2020-02-08 12:13:00 eLster Enrique sari Pedro HC COMPLETE BLD COUNT 2020-02-08 10:30:00 [facility] W/AUTO DIFF COMPREHENSIVE METABOLIC 2020-02-08 10:30:00 [facility] PANEL CYCLOSPORINE LEVEL, RANDOM 2020-02-08 10:30:00 [facility] ESTIMATED GFR 2020-02-08 10:30:00 [facility] POC GLUCOSE 2020-02-07 22:06:00 [facility] POC GLUCOSE 2020-02-07 17:36:00 [facility] HC COMPLETE BLD COUNT 2020-02-07 14:15:00 [facility] W/AUTO DIFF POC GLUCOSE 2020-02-07 [facility]:00[facility] WITH PLATELET AND 2020-02-07 10:28:00 [facility] DIFFERENTIAL COMPREHENSIVE METABOLIC 2020-02-07 10:28:00 [facility] PANEL CYCLOSPORINE LEVEL, RANDOM 2020-02-07 10:28:00 [facility] ESTIMATED GFR 2020-02-07 10:28:00 [facility] POC GLUCOSE 2020-02-07 02:33:00 [facility] POC GLUCOSE 2020-02-06 22:40:00 [facility] 2020-02-06 17:37:00 [facility] POC GLUCOSE 2020-02-06 13:08:00 [facility] HC COMPLETE BLD COUNT 2020-02-06 11:20:00 [facility] W/AUTO DIFF COMPREHENSIVE METABOLIC 2020-02-06 11:20:00 [facility] PANEL CYCLOSPORINE LEVEL, RANDOM 2020-02-06 11:20:00 [facility] ESTIMATED GFR 2020-02-06 11:20:00 [facility] POC GLUCOSE 2020-02-06 05:11:00 [facility] 2020-02-05 22:59:00 Maite Jauregui [facility] POC GLUCOSE 2020-02-05 16:48:00 Maite Jauregui [facility] POC GLUCOSE 2020-02-05 13:34:00 Maite Jauregui [facility] CBC WITH PLATELET AND 2020-02-05 10:40:00 [facility] DIFFERENTIAL COMPREHENSIVE METABOLIC 2020-02-05 10:40:00 [facility] PANEL CYCLOSPORINE LEVEL, RANDOM 2020-02-05 10:40:00 [facility] ESTIMATED GFR 2020-02-05 10:40:00 [facility] MANUAL DIFFERENTIAL 2020-02-05 10:40:00 [facility] POC GLUCOSE 2020-02-05 04:41:00 Maite Jauregui [facility] POC GLUCOSE 2020-02-04 23:09:00 Maite Jauregui [facility] POC GLUCOSE 2020-02-04 15:58:00 Maite Jauregui [facility] POC GLUCOSE 2020-02-04 12:49:00 Maite Jauregui [facility] CBC WITH PLATELET AND 2020-02-04 10:20:00 [facility] DIFFERENTIAL COMPREHENSIVE METABOLIC 2020-02-04 10:20:00 [facility] PANEL CYCLOSPORINE LEVEL, RANDOM 2020-02-04 10:20:00 [facility] ESTIMATED GFR 2020-02-04 10:20:00 [facility] MAGNESIUM LEVEL 2020-02-04 10:20:00 [facility] PHOSPHORUS LEVEL 2020-02-04 10:20:00 [facility] MANUAL DIFFERENTIAL 2020-02-04 10:20:00 [facility] BLOOD SMEAR CONSULT 2020-02-04 10:20:00 Ed Ramona Morrowe [facility] POC GLUCOSE 2020-02-04 02:41:00 [facility] 2020-02-03 22:34:00 [facility] POC [facility]SE 2020-02-03 17:16:00 [facility] P[facility]SE 2020-02-03 13:07:00 Maite Jauregui [facility] HC COMPLETE BLD COUNT 2020-02-03 10:54:00 [facility] W/AUTO DIFF COMPREHENSIVE METABOLIC 2020-02-03 10:54:00 [facility] PANEL CYCLOSPORINE LEVEL, TROUGH 2020-02-03 10:54:00 [facility] MAGNESIUM LEVEL 2020-02-03 10:54:00 [facility] ESTIMATED GFR 2020-02-03 10:54:00 [facility] POC GLUCOSE 2020-02-02 23:16:00 Maite Jauregui [facility] POC GLUCOSE 2020-02-02 17:11:00 Maite Jauregui [facility] POC GLUCOSE 2020-02-02 13:06:00 Maite Jauregui [facility] HC COMPLETE BLD COUNT 2020-02-02 11:07:00 [facility] W/AUTO DIFF COMPREHENSIVE METABOLIC 2020-02-02 11:07:00 [facility] PANEL CYCLOSPORINE LEVEL, TROUGH 2020-02-02 11:07:00 [facility] MAGNESIUM LEVEL 2020-02-02 11:07:00 [facility] ESTIMATED GFR 2020-02-02 11:07:00 [facility] POC GLUCOSE 2020-02-02 02:33:00 Maite Jauregui [facility] POC GLUCOSE 2020-02-01 23:56:00 Maite Jauregui [facility] POC GLUCOSE 2020-02-01 18:03:[address] POC GLUCOSE 2020-02-01 13:02:00 [facility] HC COMPLETE BLD COUNT 2020-02-01 10:03:00 [facility] W/AUTO DIFF COMPREHENSIVE METABOLIC 2020-02-01 10:03:00 [facility] PANEL CYCLOSPORINE LEVEL, TROUGH 2020-02-01 10:03:00 [facility] MAGNESIUM LEVEL 2020-02-01 10:03:00 [facility] ESTIMATED GFR 2020-02-01 10:03:00 [facility] POC GLUCOSE 2020-01-31 22:42:00 [facility] POC GLUCOSE 2020-01-31 17:56:00 [facility] POC GLUCOSE 2020-01-31 13:03:00 [facility]aniaMa[facility] HC COMPLETE BLD COUNT 2020-01-31 09:51:00 [facility] W/AUTO DIFF COMPREHENSIVE METABOLIC 2020-01-31 09:51:00 [facility] PANEL CYCLOSPORINE LEVEL, TROUGH 2020-01-31 09:51:00 [facility] ESTIMATED GFR 2020-01-31 09:51:00 [facility] POC GLUCOSE 2020-01-30 22:36:00 [facility] Maite [facility] POC GLUCOSE 2020-01-30 17:01:00 [facility] Maite [facility] POC GLUCOSE 2020-01-30 12:55:00 [facility] HC COMPLETE BLD COUNT 2020-01-30 10:56:00 [facility] W/AUTO DIFF COMPREHENSIVE METABOLIC 2020-01-30 10:56:00 [facility] PANEL [id number] TACROLIMUS LEVEL, 2020-01-30 10:56:00 [facility] RANDOM ESTIMATED GFR 2020-01-30 10:56:00 [facility] POC GLUCOSE 2020-01-30 02:27:00 Maite Jauregui [facility] POC GLUCOSE 2020-01-29 22:26:00 Shania [facility] CT ANGIOGRAM ABDOMEN 2020-01-29 20:32:00 [facility] PELVIS W AND OR WO Javier CONTRAST URINE CULTURE 2020-01-29 16:37:00 [facility] HCG QUALITATIVE, URINE 2020-01-29 16:37:00 Shania, [facility] SCREEN URINALYSIS SCREEN AND 2020-01-29 16:37:00 [facility] MICROSCOPY, WITH REFLEX TO CULTURE US ABDOMINAL DOPPLER 2020-01-29 15:52:00 [facility] BLOOD CULTURE, AEROBIC & 2020-01-29 15:00:00 [facility] ANAEROBIC [facility] DONOR SPECIFIC ANTIBODY 2020-01-29 15:00:00 [facility] LACTIC ACID LEVEL 2020-01-29 14:15:00 [facility] BLOOD CULTURE, AEROBIC & 2020-01-29 12:30:00 [facility] ANAEROBIC Javier POC GLUCOSE 2020-01-29 10:37:00 ShaniaMaite [facility] CYCLOSPORINE LEVEL, TROUGH 2020-01-29 10:[facility]00 [facility] 2020-01-29 10:11:00 [facility] PANEL Javier ESTIMATED GFR 2020-01-29 10:11:00 [facility] ospital Javier US ABDOMEN COMPLETE 2020-01-29 05:25:57 [facility] Javier BLOOD CULTURE, FUNGUS 2020-01-29 03:19:00 [facility] Javier HC COMPLETE BLD COUNT 2020-01-29 03:04:00 [facility] W/AUTO DIFF Javier PROTHROMBIN TIME WITH INR 2020-01-29 03:04:00 [facility] COMPREHENSIVE METABOLIC 2020-01-29 03:04:00 Lisy Pineda [facility] PANEL Javier MAGNESIUM LEVEL 2020-01-29 03:04:00 [facility]avier PHOSPHORUS LEVEL 2020-01-29 03:04:00 [facility] HEPATITIS ACUTE PANEL 2020-01-29 03:04:00 Miriam [facility] Javier FIBRINOGEN 2020-01-29 03:04:00 [facility]avier HEPATIC FUNCTION PANEL 2020-01-29 03:04:00 [facility] 2020-01-29 03:04:00 [facility] Javier PARTIAL THROMBOPLASTIN 2020-01-29 03:04:00 [facility]TT[facility] Javier LDH 2020-01-29 03:04:00 [facility] Javier CYTOMEGALOVIRUS BY PCR 2020-01-29 03:04:00 [facility] ESTIMATED GFR 2020-01-29 03:04:00 Lisy Pineda ospital Javier ECG 12-LEAD 2020-01-29 02:28:50 Lisy Pineda ospital Javier POC GLUCOSE 2020-01-13 22:38:00 [facility] POC GLUCOSE 2020-01-13 16:39:00 [facility] POC GLUCOSE 2020-01-13 12:44:00 [facility] HC COMPLETE BLD COUNT 2020-01-13 11:27:00 Mattie Alvarenga [facility] W/AUTO DIFF CYTOMEGALOVIRUS BY PCR 2020-01-13 11:27:00 Mattie Alvarenga [facility] CYTOMEGALOVIRUS BY PCR 2020-01-13 11:26:00 Mattie Alvarenga [facility] CYCLOSPORINE LEVEL, TROUGH 2020-01-13 11:22:00 Mattie Alvarenga Hospital COMPREHENSIVE METABOLIC 2020-01-13 09:00:00 [facility] PANEL MAGNESIUM LEVEL 2020-01-13 09:00:00 Mattie Alvarenga [facility] ESTIMATED GFR 2020-01-13 09:00:00 [facility] POC GLUCOSE 2020-01-13 02:09:00 [facility] 2020-01-12 22:31:00 [facility] POC GLUCOSE 2020-01-12 16:21:00 [facility] POC GLUCOSE 2020-01-12 12:00:00 [facility] Transfusion of Blood [facility] Colonoscopy [facility] Gastric Bypass [facility] Cholecystectomy [facility] Tubal Ligation [facility] Plan of Care Planned Activity Planned Date Details Comments Source Future Scheduled 2021-02-10 INFLUENZA VACCINE (#1) [facility] Test 00:00:00 [code = INFLUENZA Medical Ce nter VACCINE (#1)] Future Scheduled 2009-01-[address] [facility] [address] [facility] Test 00:00:00 malignant neoplasm of [facility] Center cervix (procedure) [code = 067339966] Future Scheduled 2007-01-21 DTAP/TDAP/TD VACCINES CH I [...] 0-64 YRS (1 of 3 - PCV13)] Future Scheduled [facility] [code = INFLUENZA VACCINE] Future Scheduled [facility] Test malignant neoplasm of cervix (procedure) [code = 513128588] Future Scheduled [facility] [code = INFLUENZA VACCINE] Future Scheduled [facility] Test malignant neoplasm of cervix (procedure) [code = 035133754] Encounters Start End Encounter Admission Attending Care Care Encounter Source Date/Time Date/Time Type Type Clinicians Facility Department ID 2020-10-02 2020-10-02 Refill Chris, 1.2.840.1 [id number] 2099 [id number] Methodi 00:00:00 00:00:00 Rafik Shree 13442.1.1 731 s t 3.430.2.7 Hospit a .3.799204 l .8 2020-10-02 2020-10-02 Refill Chris, 1.2.840.1 [id number] 2099 [id number] Methodi 00:00:00 00:00:00 Rafik Shree 66923.1.1 730 s t 3.430.2.7 Hospit a .3.468397 l .8 2020-10-02 2020-10-02 Refill Chris, 1.2.840.1 [id number] 2099 [id number] Methodi 00:00:00 00:00:00 Rafik Shree 50947.1.1 731 s t 3.430.2.7 Hospit a .3.587404 l .8 2020-10-02 2020-10-02 Refill Chris, 1.2.840.1 [id number] 2099 [id number] Methodi 00:00:00 00:00:00 Rafik Shree 97720.1.1 730 s t 3.430.2.7 Hospit a .3.785825 l .8 2020-08-18 2020-08-18 Telephone Chris, 1.2.840.1 [id number] Methodi 00:00:00 00:00:00 Rafik Shree 20231.1.1 337 s t 3.430.2.7 Hospit a .3.002668 l .8 2020-08-18 2020-08-18 Telephone Chris, 1.2.840.1 [id number] Methodi 00:00:00 00:00:00 Pedro Shree 30183.1.1 337 s t 3.430.2.7 Hospit a .3.068711 l .8 2020-08-08 2020-08-08 Clinical Chris, 1.2.840.1 [id number] Methodi 07:37:23 07:52:23 Support Brendanik Shree 07956.1.1 831 s t 3.430.2.7 Hospit a .3.031248 l .8 2020-08-08 2020-08-08 Clinical Chris, 1.2.840.1 [id number] 581 [id number] Methodi 07:37:23 07:52:23 Support Pedro Shree 26872.1.1 831 s t 3.430.2.7 Hospit a .3.045958 l .8 2020-08-03 2020-08-03 Telephone [facility], 1.2.840.1 [id number] Methodi 00:00:00 00:00:00 Pedro Shree 39729.1.1 526 s t 3.430.2.7 Hospit a .3.731132 l .8 2020-08-03 2020-08-03 Telephone [place], 1.2.840.1 [id number] Methodi 00:00:00 00:00:[address] 3.430.2.7 Hospit a .3.136400 l .8 2020-08-03 2020-08-03 [facility], 1.2.840.1 [id number] Methodi 00:00:00 00:00:00 Brendanik Shree 81859.1.1 526 s t 3.430.2.7 Hospit a .3.290518 l .8 2020-08-03 2020-08-03 [facility], 1.2.840.1 [id number] Methodi 00:00:00 00:00:[address] 3.430.2.7 Hospit a .3.622206 l .8 2020-07-18 2020-07-18 Clinical Chris, 1.2.840.1 [id number] [id number] Methodi 08:06:28 08:21:28 Support Pedro Swann 66615.1.1 772 s t 3.430.2.7 Hospit a .3.247020 l .8 2020-07-18 2020-07-18 Clinical Chris, 1.2.840.1 [id number] Methodi 08:06:28 08:21:28 Support Pedro Swann 26699.1.1 772 s t 3.430.2.7 Hospit a .3.573636 l .8 2020-07-13 2020-07-13 Telephone Saharia, 1.2.840.1 [id number] Methodi 00:00:00 00:00:[address] 3.430.2.7 Hospit a .3.185473 l .8 2020-07-13 2020-07-13 Telephone Saharia, 1.2.840.1 [id number] Methodi 00:00:00 00:00:[address] 3.430.2.7 Hospit a .3.737889 l .8 2020-07-09 2020-07-09 Travel 1.2.840.1 1.2.217.359 4863 [id number] Methodi 00:00:00 00:00:[address] 3.430.2.7 0.2.7.3.698 Ho spita .3.023020 084.8 l .8 2020-07-09 2020-07-09 Travel 1.2.840.1 1.2.346.504 4314 [id number] Methodi 00:00:00 00:00:[address] 3.430.2.7 0.2.7.3.698 Ho spita .3.577929 084.8 l .8 2020-07-03 2020-07-03 Telephone Chris, 1.2.840.1 [id number] 21 [id number] Methodi 00:00:00 00:00:00 Pedro Swann 10216.1.1 206 s t 3.430.2.7 Hospit a .3.844427 l .8 2020-07-03 2020-07-03 Telephone Chris, 1.2.840.1 [id number] Methodi 00:00:00 00:00:00 Pedro Shree 97652.1.1 206 s t 3.430.2.7 Hospit a .3.915151 l .8 2020-07-02 2020-07-02 Social Moss, 1.2.840.1 [id number] 714 [id number] Methodi 08:05:40 08:20:40 Work Salazar 87742.1.[address] 3.430.2.7 Hospit a .3.055449 l .8 2020-07-02 2020-07-02 Social Moss, 1.2.840.1 [id number] Methodi 08:05:40 08:20:40 Work Salazar 22435.1.[address] 3.430.2.7 Hospit a .3.709730 l .8 2020-07-02 2020-07-02 Office Pedro Perez 1.2.840.1 [id number] Methodi 06:53:54 07:08:54 Visit Mattie Alvarenga 53693.1.[address] 3.430.2.7 Hospit a .3.591444 l .8 2020-07-02 2020-07-02 Office Pedro Perez 1.2.840.1 [id number] Methodi 06:53:54 07:08:54 Visit Mattie Alvarenga 42298.1.[address] 3.430.2.7 Hospit a .3.551399 l .8 2020-07-02 2020-07-02 Travel 1.2.840.1 1.2.773.367 5329 [id number] Methodi 00:00:00 00:00:[address] 3.430.2.7 0.2.7.3.698 Ho spita .3.241167 084.8 l .8 2020-07-02 2020-07-02 Travel 1.2.840.1 1.2.060.911 3870 [id number] Methodi 00:00:00 00:00:[address] 3.430.2.7 0.2.7.3.698 Ho spita .3.079221 084.8 l .8 2020-06-29 2020-06-29 Refill Chris, 1.2.840.1 [id number] Methodi 00:00:00 00:00:00 Rafik Shree 09556.1.1 932 s t 3.430.2.7 Hospit a .3.264248 l .8 2020-06-29 2020-06-29 Refill Chris, 1.2.840.1 [id number] Methodi 00:00:00 00:00:00 Rafik Shree 75047.1.1 932 s t 3.430.2.7 Hospit a .3.693509 l .8 2020-06-17 2020-06-17 Refill Chris, 1.2.840.1 [id number] Methodi 00:00:00 00:00:00 Rafik Shree 33550.1.1 839 s t 3.430.2.7 Hospit a .3.495208 l .8 2020-06-17 2020-06-17 Refill Chris, 1.2.840.1 [id number] Methodi 00:00:00 00:00:00 Rafik Shree 23403.1.1 839 s t 3.430.2.7 Hospit a .3.395971 l .8 2020-05-29 2020-05-29 Travel 1.2.840.1 1.2.194.860 9621 [id number] Methodi 00:00:00 00:00:[address] 3.430.2.7 0.2.7.3.698 Ho spita .3.325008 084.8 l .8 2020-05-29 2020-05-29 Travel 1.2.840.1 1.2.927.695 7238 [id number] Methodi 00:00:00 00:00:[address] 3.430.2.7 0.2.7.3.698 Ho spita .3.092897 084.8 l .8 2020-05-15 2020-05-15 Telephone Chris, 1.2.840.1 [id number] 21 [id number] Methodi 00:00:00 00:00:00 Rafik Shree 71771.1.1 361 s t 3.430.2.7 Hospit a .3.669430 l .8 2020-05-15 2020-05-15 Telephone Chris, 1.2.840.1 [id number] 21 [id number] Methodi 00:00:00 00:00:00 Rafik Shree 48449.1.1 361 s t 3.430.2.7 Hospit a .3.304957 l .8 2020-05-12 2020-05-12 Telephone Chris, 1.2.840.1 [id number] 21 [id number] Methodi 00:00:00 00:00:00 Rafik Shree 53897.1.1 985 s t 3.430.2.7 Hospit a .3.231869 l .8 2020-05-12 2020-05-12 Telephone Chris, 1.2.840.1 [id number] 21 [id number] Methodi 00:00:00 00:00:00 Rafik Shree 04316.1.1 985 s t 3.430.2.7 Hospit a .3.677778 l .8 2020-05-11 2020-05-11 Travel 1.2.840.1 1.2.942.357 0578 [id number] Methodi 00:00:00 00:00:[address] 3.430.2.7 0.2.7.3.698 Ho spita .3.810019 084.8 l .8 2020-05-11 2020-05-11 Travel 1.2.840.1 1.2.349.041 8707 [id number] Methodi 00:00:00 00:00:[address] 3.430.2.7 0.2.7.3.698 Ho spita .3.522446 084.8 l .8 2020-04-16 2020-05-01 Office [facility], 1.2.840.1 [id number] Methodi 09:03:36 08:54:48 Visit Evans 07023.1.[address] 3.430.2.7 Hospit a .3.462655 l .8 2020-04-16 2020-05-[address] [facility], 1.2.840.1 [id number] Methodi 09:03:36 08:54:48 Visit Evans [address]8540.1.[address] 3.430.2.7 Hospit a .3.371614 l .8 2020-04-30 2020-04-30 Nutrition [facility], 1.2.840.1 [id number] 2 [id number] Methodi 09:52:27 10:22:[address] 3.430.2.7 Hospit a .3.470876 l .8 2020-04-30 2020-04-30 Nutrition [facility], 1.2.840.1 [id number] 2 [id number] Methodi 09:52:27 10:22:[address] 3.430.2.7 Hospit a .3.677158 l .8 2020-04-30 2020-04-30 Social [facility], 1.2.840.1 [id number] Methodi 08:34:36 08:49:36 Work Salazar 23963.1.[address] 3.430.2.7 Hospit a .3.771421 l .8 2020-04-30 2020-04-30 Social Moss, 1.2.840.1 [id number] 629 [id number] Methodi 08:34:36 08:49:36 Work Salazar 35371.1.[address] 3.430.2.7 Hospit a .3.548136 l .8 2020-04-30 2020-04-30 Office ChrisPedro 1.2.840.1 104 [id number] Methodi 06:44:35 06:59:35 Visit Mattie Alvarenga 53321.1.[address] 3.430.2.7 Hospit a .3.243358 l .8 2020-04-30 2020-04-30 Office Pedro Perez 1.2.840.1 104 [id number] Methodi 06:44:35 06:59:35 Visit Mattie Alvarenga 32092.1.[address] 3.430.2.7 Hospit a .3.591016 l .8 2020-04-30 2020-04-30 Travel 1.2.840.1 1.2.872.487 8985 [id number] Methodi 00:00:00 00:00:[address] 3.430.2.7 0.2.7.3.698 Ho spita .3.348424 084.8 l .8 2020-04-30 2020-04-30 Travel 1.2.840.1 1.2.217.215 2020 [id number] Methodi 00:00:00 00:00:[address] 3.430.2.7 0.2.7.3.698 Ho spita .3.684564 084.8 l .8 2020-04-29 2020-04-29 Clinical 1.2.840.1 [id number] Methodi 13:00:00 14:00:[address] 3.430.2.7 Hospit a .3.860550 l .8 2020-04-29 2020-04-29 Clinical 1.2.840.1 [id number] Methodi 13:00:00 14:00:[address] 3.430.2.7 Hospit a .3.386414 l .8 2020-04-27 2020-04-27 Travel 1.2.840.1 1.2.978.945 4996 [id number] Methodi 00:00:00 00:00:[address] 3.430.2.7 0.2.7.3.698 Ho spita .3.093599 084.8 l .8 2020-04-27 2020-04-27 Travel 1.2.840.1 1.2.832.726 7500 [id number] Methodi 00:00:00 00:00:[address] 3.430.2.7 0.2.7.3.698 Ho spita .3.065340 084.8 l .8 2020-04-23 2020-04-23 Travel 1.2.840.1 1.2.580.535 2104 965912 Methodi 00:00:00 00:00:[address] 3.430.2.7 0.2.7.3.698 Ho spita .3.640329 084.8 l .8 2020-04-23 2020-04-23 Travel 1.2.840.1 1.2.739.015 5562 717848 Methodi 00:00:00 00:00:[address] 3.430.2.7 0.2.7.3.698 Ho spita .3.226106 084.8 l .8 2020-04-20 2020-04-20 Travel 1.2.840.1 1.2.341.671 7303 899288 Methodi 00:00:00 00:00:[address] 3.430.2.7 0.2.7.3.698 Ho spita .3.785704 084.8 l .8 2020-04-20 2020-04-20 Travel 1.2.840.1 1.2.367.716 3902 137757 Methodi 00:00:00 00:00:[address] 3.430.2.7 0.2.7.3.698 Ho spita .3.839741 084.8 l .8 2020-04-16 2020-04-16 [facility], 1.2.840.1 [id number] 245 0331550 Methodi 09:26:37 09:41:37 Work [place] 57812.1.[address] 3.430.2.7 Hospit a .3.187721 l .8 2020-04-16 2020-04-16 Social [facility], 1.2.840.1 [id number] 512 0994603 Methodi 09:26:37 09:41:37 Work [place] 33677.1.[address] 3.430.2.7 Hospit a .3.984484 l .8 2020-04-16 2020-04-16 Office Pedro Perez 1.2.840.1 104 689057 [id number] Methodi 06:39:34 06:54:34 Visit Mattie Alvarenga 29587.1.[address] 3.430.2.7 Hospit a .3.885366 l .8 2020-04-16 2020-04-16 Office Pedro Perez 1.2.840.1 104 742182 [id number] Methodi 06:39:34 06:54:34 Visit Mattie Alvarenga 22751.1.[address] 3.430.2.7 Hospit a .3.035953 l .8 2020-04-16 2020-04-16 Travel 1.2.840.1 1.2.876.417 6548 926261 Methodi 00:00:00 00:00:[address] 3.430.2.7 0.2.7.3.698 Ho spita .3.993089 084.8 l .8 2020-04-16 2020-04-16 Travel 1.2.840.1 1.2.369.967 6607 143066 Methodi 00:00:00 00:00:[address] 3.430.2.7 0.2.7.3.698 Ho spita .3.089173 084.8 l .8 2020-04-13 2020-04-13 Travel 1.2.840.1 1.2.394.155 0473 505313 Methodi 00:00:00 00:00:[address] 3.430.2.7 0.2.7.3.698 Ho spita .3.108108 084.8 l .8 2020-04-13 2020-04-13 Travel 1.2.840.1 1.2.589.291 3853 758337 Methodi 00:00:00 00:00:[address] 3.430.2.7 0.2.7.3.698 Ho spita .3.062908 084.8 l .8 2020-04-09 2020-04-09 Telephone [place], 1.2.840.1 [id number] 2100 017613 Methodi 00:00:00 00:00:[address] 3.430.2.7 Hospit a .3.622315 l .8 2020-04-09 2020-04-09 Travel 1.2.840.1 1.2.301.450 3391 935944 Methodi 00:00:00 00:00:[address] 3.430.2.7 0.2.7.3.698 Ho spita .3.497736 084.8 l .8 2020-04-09 2020-04-09 Telephone [place], 1.2.840.1 [id number] 2100 017613 Methodi 00:00:00 00:00:[address] 3.430.2.7 Hospit a .3.119487 l .8 2020-04-09 2020-04-09 Travel 1.2.840.1 1.2.779.774 0604 060321 Methodi 00:00:00 00:00:[address] 3.430.2.7 0.2.7.3.698 Ho spita .3.502410 084.8 l .8 2020-04-08 2020-04-08 Telephone [facility], 1.2.840.1 [id number] Methodi 00:00:00 00:00:00 Pedro Swann 28413.1.1 [address] 3.430.2.7 Hospit a .3.532559 l .8 2020-04-08 2020-04-08 Orders [place], 1.2.840.1 [id number] 612600 1855 Methodi 00:00:00 00:00:00 Only Taina 84000.1.[address] 3.430.2.7 Hospit a .3.269929 l .8 2020-04-08 2020-04-08 Telephone [facility], 1.2.840.1 [id number] Methodi 00:00:00 00:00:00 Pedro Swann 66971.1.1 334 s t 3.430.2.7 Hospit a .3.093303 l .8 2020-04-08 2020-04-08 Orders [place], 1.2.840.1 [id number] Methodi 00:00:00 00:00:00 Only Taina 68447.1.[address] 3.430.2.7 Hospit a .3.270560 l .8 2020-04-06 2020-04-06 Orders [place], 1.2.840.1 [id number] 1323 Methodi 00:00:00 00:00:00 Only Taina 12640.1.[address] 3.430.2.7 Hospit a .3.212124 l .8 2020-04-06 2020-04-06 Travel 1.2.840.1 1.2.938.910 6622 165063 Methodi 00:00:00 00:00:[address] 3.430.2.7 0.2.7.3.698 Ho spita .3.100047 084.8 l .8 2020-04-06 2020-04-06 Orders [place], 1.2.840.1 [id number] 000157 2305 Methodi 00:00:00 00:00:00 Only Taina 66125.1.[address] 3.430.2.7 Hospit a .3.322216 l .8 2020-04-06 2020-04-06 Travel 1.2.840.1 1.2.048.938 2989 [id number] Methodi 00:00:00 00:00:[address] 3.430.2.7 0.2.7.3.698 Ho spita .3.252554 084.8 l .8 2020-02-07 2020-04-01 [facility] V. 1.2.840.1 [id number] 15 [id number] Methodi 19:19:01 15:22:00 Encounter Justyn Lester Vasquez 66013.1.[address] 3.430.2.7 Hospit a .3.784849 l .8 2020-02-07 2020-04-01 [facility] V. 1.2.840.1 [id number] 15 [id number] Methodi 19:19:01 15:22:00 Encounter Enrique Lester Vasquez 89480.1.[address] 3.430.2.7 Hospit a .3.017785 l .8 2020-03-23 2020-03-23 Telephone Oswaldo, 1.2.840.1 [id number] 2099 [id number] Methodi 00:00:00 00:00:00 Ninoska Yu 58748.1.[address] 3.430.2.7 Hospit a .3.538864 l .8 2020-03-23 2020-03-23 Telephone Oswaldo, 1.2.840.1 [id number] 2099 [id number] Methodi 00:00:00 00:00:[address] 3.430.2.7 Hospit a .3.451217 l .8 2020-01-28 2020-02-07 [facility], 1.2.840.1 [id number] 79579 Methodi 20:51:49 19:12:00 Encounter Maite 91663.1.[address] M. 3.430.2.7 Hospit a .3.745605 l .8 2020-01-28 2020-02-07 [facility], 1.2.840.1 [id number] 08516 Methodi 20:51:49 19:12:00 Encounter Maite 15660.1.[address] M. 3.430.2.7 Hospit a .3.976310 l .8 2020-01-28 2020-01-28 Travel 1.2.840.1 1.2.886.579 1220 [id number] Methodi 00:00:00 00:00:[address] 3.430.2.7 0.2.7.3.698 Ho spita .3.920109 084.8 l .8 2020-01-28 2020-01-28 Travel 1.2.840.1 1.2.826.600 0872 [id number] Methodi 00:00:00 00:00:[address] 3.430.2.7 0.2.7.3.698 Ho spita .3.455474 084.8 l .8 2019-12-25 2020-01-13 [facility] Kobi Henriquez 1.2.840.1 104 [id number] Methodi 19:05:00 19:16:00 Encounter Willis Henriquez 91059.1.[address] 3.430.2.7 Hospit a .3.205502 l .8 2020-01-13 2020-01-13 Telephone Mary Ellen, 1.2.840.1 [id number] Methodi 00:00:00 00:00:[address] [facility]430.2.7 [facility] .[facility] 2019-04-19 2019-04-[facility] [place] [facility] [id number] [facility] atagor 00:00:00 00:00:00 Natalya Tucker, [facility] [employer], S: [facility] al [address] [facility] [place], Kavin h 1, [facility] [place] [address] , Ph. 2017-03-17 2017-03-17 Outpatient Pachie S Pachie S [id number] 1 Memoria 10:15:00 10:15:00 [facility] 2017-03-09 2017-03-09 Outpatient Pachie S Pachie S [id number] 5 Memoria 10:53:00 10:53:00 [facility] 2017-01-30 2017-01-30 Outpatient Pachie S Pachie S [id number] 1 Memoria 13:16:00 13:16:00 [facility] 2016-12-23 2016-12-23 Outpatient Pachie S Pachie S [id number] Memoria 09:34:00 09:34:00 Chetan Benton MD l PLLC PLLC [place] 2016-12-21 2016-12-21 Outpatient Pachie S Pachie S [id number] 6 Memoria 12:46:00 12:46:00 [facility] 2016-11-16 2016-11-16 Outpatient Pachie S Pachie S [id number] 5 Memoria 12:58:00 12:58:00 [facility] 2016-10-27 2016-10-27 Outpatient Pachie S Pachie S [id number] 6 Memoria 13:15:00 13:15:00 [facility] 2016-10-21 2016-10-21 Outpatient Pachie S Pachie S [id number] 9 Memoria 09:00:00 09:00:00 [facility] [place] 2016-10-13 2016-10-13 Outpatient Pachie S Pachie S [id number] 8 Memoria 14:19:00 14:19:00 [facility] [place] 2016-09-19 2016-09-19 Outpatient Pachie S Andreas S [id number] 0 Memoria 13:28:00 13:28:00 Chetan Benton MD l PLLC [facility] [place] 2016-08-18 2016-08-18 Outpatient Pachie S Pachie S [id number] Memoria 08:30:00 08:30:00 Chetan Benton MD l PLLC PLLC [place] 2016-08-16 2016-08-16 MED REFILL nullFlavo Pachie S. eaf 4d5vq-b Memoria 14:45:00 14:45:00 lindsey Benton MD i32-1l95-u l PLLC f03-a53816 [facility] nn a93f0d 2016-08-16 2016-08-16 Outpatient Pachie S. Pachie S. 134 940 Memoria 08:45:00 08:45:00 MD Chetan Benton MD l PLLC PLLC [place] 2016-07-07 2016-07-07 Refill nullFlavo Pachie S. cba16a 1c-b Memoria 20:22:00 20:22:00 lindsey Benton MD fea-436c-8 l PLLC 014-y5224t [facility] nn 39ba00 2016-07-07 2016-07-07 Refill nullFlavo Pachie S. 4cb9c9 b8-a Memoria 20:22:00 20:22:00 lindsey Benton MD 65d-4f17-8 l PLLC bcd-60354j [facility] nn 015c9b 2016-07-07 2016-07-07 Outpatient Pachie S. Pachie S. 133 111 Memoria 14:22:00 14:22:00 MD Chetan Benton MD l PLLC PLL[facility] [place] 2016-06-08 2016-06-08 refill-add nullFlavo Pachie S. b6b 195af-6 Memoria 16:23:00 16:23:00 reece Benton MD 19e-407a-8 l PLLC z98-739465 [facility] nn 8vc640 2016-06-08 2016-06-08 refill-add nullFlavo Pachie S. 8d0 7948a-2 Memoria 16:23:00 16:23:00 reece Benton MD 284-4379-a l PLLC 127-624d60 [facility] nn 111e12 2016-06-08 2016-06-08 refill-add nullFlavo Pachie S. ebb bffa2-7 Memoria 16:23:00 16:23:00 reece Benton MD cdd-4340-8 l PLLC p12-3zxeq9 [facility] nn f904bc 2016-06-08 2016-06-08 Outpatient Pachie S. Pachie S. 131 632 Memoria 10:23:00 10:23:00 MD Chetan Benton MD l PLLC PLLC [place] 2016-05-10 2016-05-10 refill-add nullFlavo Pachie S. 566 6eu32-5 Memoria 15:08:00 15:08:00 reece Benton MD eaf-4cf0-8 l PLLC 556-9gh233 [facility] nn 7c7cf5 2016-05-10 2016-05-10 refill-add nullFlavo Pachie S. c4b 2c6td-2 Memoria 15:08:00 15:08:00 reece Benton MD 910-4a4d-b l PLLC bc9-bc3264 [facility] nn b558ed 2016-05-10 2016-05-10 refill-add nullFlavo Pachie S. d7a 91l49-1 Memoria 15:08:00 15:08:00 reece Benton MD 492-4355-8 l PLLC fc6-6e98c0 [facility] nn 89n461 2016-05-10 2016-05-10 refill-add nullFlavo Pachie S. 938 z1l81-3 Memoria 15:08:00 15:08:00 reece Benton MD 191-4c81-8 l PLLC g47-0eps7s [facility] nn 74c5b8 2016-05-10 2016-05-10 Outpatient Pachie S. Pachie S. 130 154 Memoria 09:08:00 09:08:00 MD Chetan Benton MD l PLLC PLLC [place] 2016-04-28 2016-04-28 HOSP nullFlavo Pachie S. 6c2b43 bc-a Memoria 16:30:00 16:30:00 /ANDRES Benton MD ca5-4716-a l REFILLS PLLC bec-2e27b4 [facility] nn 94cbef 2016-04-28 2016-04-28 HOSP nullFlavo Pachie S. 59c7f7 e0-2 Memoria 16:30:00 16:30:00 FU/MED lindsey Benton MD q76-6h30-7 l REFILLS PLLC 7p5-1s0o31 [facility] nn 0dc7d3 2016-04-28 2016-04-28 HOSP nullFlavo Pachie S. 3x8781 90-5 Memoria 16:30:00 16:30:00 FU/MED lindsey Benton MD 253-4d3e-8 l REFILLS PLLC 614-495d87 [facility] nn 1t380v 2016-04-28 2016-04-28 HOSP nullFlavo Pachie S. d7d36a cd-2 Memoria 16:30:00 16:30:00 FU/MED lindsey Benton MD damaso-4991-a l REFILLS PLLC 4dc-u0017m [facility] nn cf3ff1 2016-04-28 2016-04-28 HOSP nullFlavo Pachie S. 719fe7 3b-5 Memoria 16:30:00 16:30:00 FU/MED lindsey Benton MD 3cd-4320-b l REFILLS PLLC 195-6b20fa [facility] nn 8e0259 2016-04-28 2016-04-28 Outpatient Pachie S. Pachie S. 129 680 Memoria 10:30:00 10:30:00 MD Chetan Benton MD l PLLC PLLC [place] 2016-02-08 2016-02-08 F/U MEDS nullFlavo Pachie S. b736f 5cc-4 Memoria 17:00:00 17:00:00 lindsey Benton MD ac7-4727-9 l PLLC o94-m0x22m [facility] nn 6bfcd8 2016-02-08 2016-02-08 F/U MEDS nullFlavo Pachie S. 42311 841-8 Memoria 17:00:00 17:00:00 lindsey Benton MD 512-4eba-b l PLLC 230-32762x [place] nn 549493 2535-08-29 2016-02-08 F/U MEDS nullFlavo Pachie S. 09748 9a6-8 Memoria 17:00:00 17:00:00 lindsey Benton MD 849-4f57-a l PLLC c95-89757s [facility] nn 64ab9e 2016-02-08 2016-02-08 F/U MEDS nullFlavo Pachie S. d8301 096-5 Memoria 17:00:00 17:00:00 lindsey Benton MD f19-4t23-m l PLLC 075-56cac2 [facility] nn 377b91 2016-02-08 2016-02-08 F/U MEDS nullFlavo Pachie S. 1fb07 420-4 Memoria 17:00:00 17:00:00 lindsey Benton MD abf-44c0-b l PLLC m1x-040y5t [facility] nn 029c30 2016-02-08 2016-02-08 F/U MEDS nullFlavo Pachie S. 01d12 ac7-5 Memoria 16:00:00 16:00:00 lindsey Benton MD 806-4698-b l PLLC 488-09431x [facility] 71c42d 2016-02-08 2016-02-08 Outpatient Pachie S. Pachie S. 125 524 Memoria 11:00:00 11:00:00 MD Chetan Benton MD l PLLC PLLC [place] 2015-11-17 2015-11-17 Unknown nullFlavo Pachie S. dp8295 ef-4 Memoria 14:56:00 14:56:00 lindsey Benton MD z37-5082-2 l PLLC 57f-f7e70a [facility] 3l423k 2015-11-17 2015-11-17 Unknown nullFlavo Pachie S. 003200 fe-a Memoria 14:56:00 14:56:00 lindsey Benton MD i85-3ho2-7 l PLLC z71-1r2cd7 [facility] a38574 2015-11-17 2015-11-17 Unknown nullFlavo Pachie S. 53110y 1c-e Memoria 14:56:00 14:56:00 lindsey Benton MD [place]-4c04-8 l PLLC w29-319qs3 [facility] l9h635 2015-11-17 2015-11-17 Unknown nullFlavo Pachie S. 11674b 7d-0 Memoria 14:56:00 14:56:00 lindsey Benton MD h9h-217q-i l PLLC r6i-a59l8r [facility] nn 6b4392 2015-11-17 2015-11-17 Unknown nullFlavo Pachie S. 44b79a 14-2 Memoria 14:56:00 14:56:00 lindsey Benton MD h58-01e0-s l PLLC 583-de67f4 [facility] nn x2l664 2015-11-17 2015-11-17 Unknown nullFlavo Pachie S. f9f6a6 48-a Memoria 13:56:00 13:56:00 lindsey Benton MD a0k-4d3p-y l PLLC ea9-zz271l [facility] nn bd12b4 2015-11-17 2015-11-17 Unknown nullFlavo Pachie S. dddce9 74-b Memoria 13:56:00 13:56:00 lindsey Benton MD 2o4-8sym-w l PLLC 0w1-0p0l54 [facility] nn 0bc1b9 2015-11-17 2015-11-17 Outpatient Pachie S. Pachie S. 121 755 Memoria 08:56:00 08:56:00 MD Chetan Benton MD l PLLC PLLC [place] 2015-10-30 2015-10-30 JOCELYN/ nullFlavo Pachie S. 88c5f 81e-9 Memoria 19:00:00 19:00:00 KATARZYNA Benton MD dc5-4f19-a l PLLC 9a7-5f6zpa [facility] nn b90e6f 2015-10-30 2015-10-30 JOCELYN/ nullFlavo Pachie S. 2699f 9ff-7 Memoria 19:00:00 19:00:00 KATARZYNA Benton MD o0u-3306-f l PLLC 49d-6j767t [facility] nn 6b45c1 2015-10-30 2015-10-30 JOCELYN/ nullFlavo Pachie S. 8bfab 9bf-5 Memoria 19:00:00 19:00:00 KATARZYNA Benton MD 8dc-467a-8 l PLLC ea0-360a6d [facility] nn y28328 2015-10-30 2015-10-30 JOCELYN/ nullFlavo Pachie S. 0acdc 4b2-7 Memoria 19:00:00 19:00:00 KATARZYNA Benton MD 2be-4877-a l PLLC ee4-c131f7 [facility] nn ef0c30 2015-10-30 2015-10-30 JOCELYN/ nullFlavo Pachie S. ac85a 8f0-3 Memoria 19:00:00 19:00:00 MEDJack Benton MD 391-42b8-9 l PLLC 47f-lr2529 [facility] nn 89m552 2015-10-30 2015-10-30 JOCELYN/ nullFlavo Pachie S. 1086b 026-9 Memoria 18:00:00 18:00:00 KATARZYNA Benton MD 336-4cb7-8 l PLLC 2l6-yn2918 [facility] nn f7b1a8 2015-10-30 2015-10-30 JOCELYN/ nullFlavo Pachie S. 9d99d 8b1-6 Memoria 18:00:00 18:00:00 KATARZYNA Benton MD 01f-4249-8 l PLLC k26-r483bq [facility] nn 5d3ada 2015-10-30 2015-10-30 JOCELYN/ nullFlavo Pachie S. e1dae 1ef-5 Memoria 18:00:00 18:00:00 KATARZYNA Benton MD 6dc-4289-a l PLLC 3k2-9ncl85 [facility] e41a85 2015-10-30 2015-10-30 Outpatient Pachie S. Pachie S. 120 749 Memoria 13:00:00 13:00:00 MD Chetan Benton MD l PLLC PLLC [place] 2015-10-02 2015-10-02 STICHES nullFlavo Pachie S. d8ea5b 8f-b Memoria 18:15:00 18:15:00 DAVID Benton MD a28-9j3u-1 l PLLC x19-uit838 [facility] 85dcf0 2015-10-02 2015-10-02 STICHES nullFlavo Pachie S. 9c7d23 f0-2 Memoria 18:15:00 18:15:00 DAVID Benton MD 762-4959-9 l PLLC 240-aa7ce1 [facility] f53c4f 2015-10-02 2015-10-02 STICHES nullFlavo Pachie S. 81j088 42-0 Memoria 18:15:00 18:15:00 REMOVAL lindsey Benton MD i33-6502-2 l PLLC l8s-4atve8 [facility] nn fc4b55 2015-10-02 2015-10-02 STICHES nullFlavo Pachie S. 9z834b ed-c Memoria 18:15:00 18:15:00 REMOVAL lindsey Benton MD a08-2r51-q l PLLC q1a-1zqz9z [facility] 084e30 2015-10-02 2015-10-02 STICHES nullFlavo Pachie S. b0ebdf 9b-8 Memoria 18:15:00 18:15:00 REMOVAL lindsey Benton MD 9k8-6bl8-i l PLLC v09-981669 [facility] nn u8419d 2015-10-02 2015-10-02 STICHES nullFlavo Pachie S. 965d8b 5a-f Memoria 17:15:00 17:15:00 REMOVAL lindsey Benton MD 964-4285-b l PLLC 2da-2l0449 [facility] 2g4920 2015-10-02 2015-10-02 STICHES nullFlavo Pachie S. 5e2d0d d2-f Memoria 17:15:00 17:15:00 REMOVAL lindsey Benton MD h46-5172-8 l PLLC m3j-i40j35 [facility] b5d6af 2015-10-02 2015-10-02 STICHES nullFlavo Pachie S. 63b26c 6c-8 Memoria 17:15:00 17:15:00 REMOVAL lindsey Benton MD 875-4fb2-8 l PLLC eb9-dbbffe [facility] 9c5f1f 2015-10-02 2015-10-02 STICHES nullFlavo Pachie S. 35355d e0-f Memoria 17:15:00 17:15:00 REMOVAL lindsey Benton MD 054-4d41-8 l PLLC l47-33115n [facility] 5bcb99 2015-10-02 2015-10-02 Outpatient Pachie S. Pachie S. 119 901 Memoria 12:15:00 12:15:00 MD Chetan Benton MD l PLLC PLLC [place] 2015-09-16 2015-09-16 BLOOD LOW/ nullFlavo Pachie S. 640 t06n1-x Memoria 14:15:00 14:15:00 PASSING lindsey Benton MD f7g-0v7u-r l OUT PLLC 331-f8eafe [facility] nn [id number] 4097-04-06 2015-09-16 BLOOD LOW/ nullFlavo Pachie S. 5e3 6z469-2 Memoria 14:15:00 14:15:00 PASSING lindsey Benton MD g08-5403-x l OUT PLLC fb2-11a2d4 [facility] nn 77e24a 2015-09-16 2015-09-16 BLOOD LOW/ nullFlavo Pachie S. 3bd x9v8k-y Memoria 14:15:00 14:15:00 PASSING lindsey Benton MD 65a-4aef-b l OUT PLLC 0l7-ob0nkz [facility] nn b0be08 2015-09-16 2015-09-16 BLOOD LOW/ nullFlavo Pachie S. 6fa m390w-m Memoria 14:15:00 14:15:00 PASSING lindsey Benton MD j36-3m2k-0 l OUT PLLC h07-rcb9b6 [facility] nn xp5334 2015-09-16 2015-09-16 BLOOD LOW/ nullFlavo Pachie S. 1f5 4e5t0-1 Memoria 14:15:00 14:15:00 PASSING lindsey Benton MD 507-4d1e-a l OUT PLLC 684-acd91d [facility] nn 824e89 2015-09-16 2015-09-16 BLOOD LOW/ nullFlavo Pachie S. abb 8ckc9-9 Memoria 13:15:00 13:15:00 PASSING lindsey Benton MD 457-43e8-a l OUT PLLC p1s-433d12 [facility] nn c49e98 2015-09-16 2015-09-16 BLOOD LOW/ nullFlavo Pachie S. 6ed 29l68-2 Memoria 13:15:00 13:15:00 PASSING lindsey Benton MD 08a-460a-b l OUT PLLC 6a3-322184 [facility] nn a338ca 2015-09-16 2015-09-16 BLOOD LOW/ nullFlavo Pachie S. ee5 8dt62-9 Memoria 13:15:00 13:15:00 PASSING lindsey Benton MD 405-4c0a-a l OUT PLLC m6k-475146 [facility] nn 45b91e 2015-09-16 2015-09-16 BLOOD LOW/ nullFlavo Pachie S. 42a y1bux-e Memoria 13:15:00 13:15:00 PASSING lindsey Benton MD 86f-44be-8 l OUT PLLC z11-jh3o79 [facility] nn 68a77d 2015-09-16 2015-09-16 BLOOD LOW/ nullFlavo Pachie S. 690 3123a-7 Memoria 13:15:00 13:15:00 PASSING lindsey Benton MD 3cc-49b3-b l OUT PLLC 229-521684 [facility] nn a4af67 2015-09-16 2015-09-16 Outpatient Pachie S. Pachie S. 119 033 Memoria 08:15:00 08:15:00 MD Chetan Benton MD l PLLC PLLC [place] 2015-08-12 2015-08-12 Refill nullFlavo Pachie S. n85324 d9-b Memoria 14:17:00 14:17:00 lindsey Benton MD 13b-4146-a l PLLC 97a-b934eb [facility] nn 35c1af 2015-08-12 2015-08-12 Refill nullFlavo Pachie S. d6acab be-0 Memoria 14:17:00 14:17:00 lindsey Benton MD 489-4ba6-b l PLLC ccd-d79b48 [facility] nn 8b4b83 2015-08-12 2015-08-12 Refill nullFlavo Pachie S. f47f94 15-9 Memoria 14:17:00 14:17:00 lindsey Benton MD m13-4937-4 l PLLC p41-ee27j4 [facility] nn 30d5f1 2015-08-12 2015-08-12 Refill nullFlavo Pachie S. 3eb6bc bf-4 Memoria 14:17:00 14:17:00 lindsey Benton MD 714-4e64-9 l PLLC fa2-0ba3f2 [facility] nn 47271x 2015-08-12 2015-08-12 Refill nullFlavo Pachie S. 322249 ec-6 Memoria 14:17:00 14:17:00 lindsey Benton MD 680-4309-9 l PLLC x57-j3o387 [facility] a4edc7 2015-08-12 2015-08-12 Refill nullFlavo Pachie S. efeb37 57-1 Memoria 14:17:00 14:17:00 lindsey Benton MD 7a7-4191-e l PLLC v7f-u0m269 [facility] 4eaf85 2015-08-12 2015-08-12 Refill nullFlavo Pachie S. 14ea93 38-e Memoria 13:17:00 13:17:00 lindsey Benton MD fc4-4b6e-a l PLLC 4x7-016032 [facility] 8ff7c9 2015-08-12 2015-08-12 Refill nullFlavo Pachie S. b3e89b 63-3 Memoria 13:17:00 13:17:00 lindsey Benton MD 5f7-4hut-r l PLLC 183-8e2229 [facility] 5f30ed 2015-08-12 2015-08-12 Refill nullFlavo Pachie S. 204da5 16-1 Memoria 13:17:00 13:17:00 lindsey Benton MD l9h-6712-e l PLLC 666-j48084 [facility] 025ce7 2015-08-12 2015-08-12 Refill nullFlavo Pachie S. e5eab5 87-d Memoria 13:17:00 13:17:00 lindsey Benton MD c55-7u55-j l PLLC 586-830292 [facility] 4k6261 2015-08-12 2015-08-12 Refill nullFlavo Pachie S. 994846 fa-8 Memoria 13:17:00 13:17:00 lindsey Benton MD 556-450c-9 l PLLC 35d-50f9c3 [facility] vm6114 2015-08-12 2015-08-12 Outpatient Pachie S. Pachie S. 117 418 Memoria 08:17:00 08:17:00 MD Chetan Benton MD l PLLC PLLC [place] 2015-08-05 2015-08-05 MEDS nullFlavo Pachie S. a77a8f 98-f Memoria 14:00:00 14:00:00 lindsey Benton MD bbe-46d4-8 l PLLC 80d-75a806 [facility] nn 033a9c 2015-08-05 2015-08-05 MEDS nullFlavo Pachie S. f689d7 ee-c Memoria 14:00:00 14:00:00 lindsey Benton MD 1l5-24dp-d l PLLC n4w-2ab2xi [facility] nn 216400 7657-02-24 2015-08-05 MEDS nullFlavo Pachie S. 0a5cc7 20-0 Memoria 14:00:00 14:00:00 lindsey Benton MD 594-4cbd-a l PLLC 3n6-e02d6m [facility] nn y00818 2015-08-05 2015-08-05 MEDS nullFlavo Pachie S. 1cfcaf b5-7 Memoria 14:00:00 14:00:00 lindsey Benton MD r41-1962-o l PLLC r2c-22k2ey [facility] nn 603190 6344-02-24 2015-08-05 MEDS nullFlavo Pachie S. 3y8288 67-c Memoria 14:00:00 14:00:00 lindsey Benton MD 22f-4624-b l PLLC 71d-c79dda [facility] nn e483af 2015-08-05 2015-08-05 MEDS nullFlavo Pachie S. 70a5b6 3f-6 Memoria 14:00:00 14:00:00 lindsey Benton MD 552-4f3a-a l PLLC a6a-9peg0j [facility] nn fabbb2 2015-08-05 2015-08-05 MEDS nullFlavo Pachie S. 6d36dc a8-9 Memoria 14:00:00 14:00:00 lindsey Benton MD p2a-9941-h l PLLC 036-488b85 [facility] nn 154dbf 2015-08-05 2015-08-05 MEDS nullFlavo Pachie S. 9e2fc3 04-c Memoria 13:00:00 13:00:00 lindsey Benton MD 5i0-2zkc-l l PLLC 11d-84f4ef [facility] nn 97874z 2015-08-05 2015-08-05 MEDS nullFlavo Pachie S. 1712ed 81-0 Memoria 13:00:00 13:00:00 lindsey Benton MD [id number]-b l PLLC ccf-7ba8b7 [facility] [id number] 2015-08-05 2015-08-05 MEDS nullFlavo Pachie S. 619b3f 93-d [facility] 13:00:00 13:00:00 lindsey Benton MD 9m1-7n29-0 l PLLC [id number] [facility] fc27b1 2015-08-05 2015-08-05 MEDS nullFlavo Pachie S. [id number] f0-4 [facility] 13:00:00 13:00:00 lindsey Benton MD bc7-432a-a l PLLC [id number] [facility] [id number] 2015-08-05 2015-08-05 MEDS nullFlavo Pachie S. [id number] 5b-4 [facility] 13:00:00 13:00:00 lindsey Benton MD 0a3-1sa7-m l PLLC [id number]-c42abc [facility] [id number] 2015-08-05 2015-08-05 Outpatient Pachie S. Pachie S. [id number] [facility] 08:00:00 08:00:00 MD Chetan Benton MD l PLLC PLLC [place] 2015-06-19 2015-06-19 Refill nullFlavo Pachie S. [id number] c5-f [facility] 14:39:00 14:39:00 lindsey Benton MD eac-47b1-a l PLLC [id number] [facility] [id number] 2015-06-19 2015-06-19 Refill nullFlavo Pachie S. [id number] 62-5 [facility] 14:39:00 14:39:00 lindsey Benton MD 9c1-0n12-3 l PLLC [id number] [facility] [id number] 2015-06-19 2015-06-19 Refill nullFlavo Pachie S. 29cbe6 d0-1 [facility] 14:39:00 14:39:00 lindsey Benton MD 70d-48d1-8 l PLLC 696-128cc9 [facility] [id number] 2015-06-19 2015-06-19 Refill nullFlavo Pachie S. [id number] a7-b [facility] 14:39:00 14:39:00 lindsey Benton MD bd9-4272-9 l PLLC fa5-2b9fa8 [facility] nn [id number] 2015-06-19 2015-06-19 Refill nullFlavo Pachie S. 9fe8bb cc-d [facility] 14:39:00 14:39:00 lindsey Benton MD 308-44d8-b l PLLC [id number]-912374 [facility] [id number] 2015-06-19 2015-06-19 Refill nullFlavo Pachie S. [id number] 0e-a [facility] 14:39:00 14:39:00 lindsey Benton MD b6x-401d-6 l PLLC [id number]-82ef6c [facility] e021c1 2015-06-19 2015-06-19 Refill nullFlavo Pachie S. aacfb0 45-c [facility] 14:39:00 14:39:00 lindsey Benotn MD 0ec-4bc4-9 l PLLC fd8-bd41f9 [facility] ac42d7 2015-06-19 2015-06-19 Refill nullFlavo Pachie S. [id number] 39-1 [facility] 14:39:00 14:39:00 lindsey Benton MD 3ea-4608-b l PLLC i87-dpej4q [facility] cbfaa9 2015-06-19 2015-06-19 Refill nullFlavo Pachie S. 537a3c 92-b [facility] 13:39:00 13:39:00 lindsey Benton MD 434-4282-9 l PLLC [id number] [facility] nn [id number] 2015-06-19 2015-06-19 Refill nullFlavo Pachie S. f307ab 20-f [facility] 13:39:00 13:39:00 lindsey Benton MD 577-4f1d-a l PLLC 3b1-e6k3lx [facility] 9c7fdf 2015-06-19 2015-06-19 Refill nullFlavo Pachie S. 2w615k 3c-4 [facility] 13:39:00 13:39:00 lindsey Benton MD 369-4833-a l PLLC e39-x2x42e [facility] 665cfa 2015-06-19 2015-06-19 Refill nullFlavo Pachie S. 14m181 07-5 [facility] 13:39:00 13:39:00 lindsey Benton MD 685-4ab8-a l PLLC aed-1a50b3 [facility] nn [id number] 2015-06-19 2015-06-19 Refill nullFlavo Pachie S. baf16c 85-d [facility] 13:39:00 13:39:00 lindsey Benton MD b2b-8890-8 l PLLC [id number] [facility] nn [id number] 2015-06-19 2015-06-19 Outpatient Pachie S. Pachie S. 114 490 [facility] 08:39:00 08:39:00 MD Chetan Benton MD l PLLC PLLC [place] 2015-05-28 2015-05-28 Refill nullFlavo Pachie S. 70c1dd d0-d [facility] 19:41:00 19:41:00 lindsey Benton MD 23a-4fcd-8 l PLLC bf8-1g030v [facility] nn [id number] 2015-05-28 2015-05-28 Refill nullFlavo Pachellen S. [id number] c2-c [facility] 19:41:00 19:41:00 lindsey Benton MD 743-4f3d-9 l PLLC 98a-4pp834 [facility] nn [id number] 2015-05-28 2015-05-28 Refill nullFlavo Pachellen S. e024d9 da-1 [facility] 19:41:00 19:41:00 lindsey Benton MD 507-4d48-9 l PLLC 5d9-4w3224 [facility] nn [id number] 2015-05-28 2015-05-28 Refill nullFlavo Pachie S. ab75a9 86-7 [facility] 19:41:00 19:41:00 lindsey Benton MD [id number] l PLLC 3j9-3a1206 [facility] nn 4f5bcf 2015-05-28 2015-05-28 Refill nullFlavo Pachie S. 1c89f7 df-d [facility] 19:41:00 19:41:00 lindsey Benton MD 52a-47f6-8 l PLLC cad-465a38 [facility] nn [id number] 2015-05-28 2015-05-28 Refill nullFlavo Pachie S. 06851w ac-b [facility] 19:41:00 19:41:00 lindsey Benton MD 6bf-4df8-a l PLLC 717-d4b8ee [facility] c6a7c3 2015-05-28 2015-05-28 Refill nullFlavo Pachie S. 5daac9 b6-5 [facility] 19:41:00 19:41:00 lindsey Benton MD [id number] l PLLC l1c-96jl70 [facility] nn [id number] 2015-05-28 2015-05-28 Refill nullFlavo Pachie S. [id number] 08-c [facility] 19:41:00 19:41:00 lindsey Benton MD e9h-5558-w l PLLC 114-08c0db [facility] [id number] 2015-05-28 2015-05-28 Refill nullFlavo Pachie S. 032b53 a9-4 [facility] 19:41:00 19:41:00 lindsey Benton MD ed5-4488-a l PLLC 85d-64m539 [facility] [id number] 2015-05-28 2015-05-28 Refill nullFlavo Pachie S. 07e90d a4-1 [facility] 18:41:00 18:41:00 lindsey Benton MD 536-495a-a l PLLC 654-2g040d [facility] cf2e4f 2015-05-28 2015-05-28 Refill nullFlavo Pachie S. 8855dd 06-8 [facility] 18:41:00 18:41:00 lindsey Benton MD 65a-4710-a l PLLC 19b-d44a3d [facility] 3781db 2015-05-28 2015-05-28 Refill nullFlavo Pachie S. 057f3d ea-3 [facility] 18:41:00 18:41:00 lindsey Benton MD 3fd-400e-8 l PLLC 1j7-ns7xf6 [facility] 59fdf1 2015-05-28 2015-05-28 Refill nullFlavo Pachie S. 764bd7 2e-d [facility] 18:41:00 18:41:00 lindsey Benton MD 275-44b7-9 l PLLC 8w9-s11q78 [facility] [id number] 0724-12-17 2015-05-28 Refill nullFlavo Pachie S. 1g514m 6d-4 [facility] 18:41:00 18:41:00 lindsey Benton MD 383-4a96-a l PLLC [id number]-vce563 [facility] c142fc 2015-05-28 2015-05-28 Outpatient Pachie S. Pachie S. [id number] [facility] 13:41:00 13:41:00 MD Chetan Benton MD l PLLC PLLC [place] 2015-05-22 2015-05-22 Refill nullFlavo Pachie S. b3f2bc f4-5 [facility] 14:05:00 14:05:00 lindsey Benton MD 8q5-1gw9-j l PLLC ac7-q2356u [facility] dd30dc 2015-05-22 2015-05-22 Refill nullFlavo Pachie S. 85cbea 55-1 [facility] 14:05:00 14:05:00 lindsey Benton MD 58d-47fb-9 l PLLC h0b-569710 [facility] f0aa48 2015-05-22 2015-05-22 Refill nullFlavo Pachie S. 0671bb 40-6 [facility] 14:05:00 14:05:00 lindsey Benton MD eb3-46b6-a l PLLC 870-6cda83 [facility] f0ef8a 2015-05-22 2015-05-22 Refill nullFlavo Pachie S. 82y998 4c-3 [facility] 14:05:00 14:05:00 lindsey Benton MD bfc-45fe-a l PLLC 2z2-ns47pk [facility] 8a56a1 2015-05-22 2015-05-22 Refill nullFlavo Pachie S. 3dc3df 5e-c [facility] 14:05:00 14:05:00 lindsey Benton MD 645-4529-b l PLLC 03b-5aae20 [facility] df15d2 2015-05-22 2015-05-22 Refill nullFlavo Pachie S. e824bf 1b-7 [facility] 14:05:00 14:05:00 lindsey Benton MD 1df-46ab-9 l PLLC 3e8-0i319m [facility] 6440cd 2015-05-22 2015-05-22 Refill nullFlavo Pachie S. 726c6b 6e-9 [facility] 14:05:00 14:05:00 lindsey Benton MD 5cf-4196-a l PLLC 888-ee9ecb [facility] 6bedb2 2015-05-22 2015-05-22 Refill nullFlavo Pachie S. bbdfff 90-5 [facility] 14:05:00 14:05:00 lindsey Benton MD 58d-4cd6-9 l PLLC u2c-6uf541 [facility] 2p8635 2015-05-22 2015-05-22 Refill nullFlavo Pachie S. 06ba6b 95-4 [facility] 14:05:00 14:05:00 lindsey Benton MD 891-403d-a l PLLC 6a0-075n98 [facility] 0169fa 2015-05-22 2015-05-22 Refill nullFlavo Pachie S. a54e79 88-d [facility] 14:05:00 14:05:00 lindsey Benton MD e67-5m01-k l PLLC 261-8iw585 [facility] 6babe3 2015-05-22 2015-05-22 Refill nullFlavo Pachie S. b5h392 3d-a [facility] 13:05:00 13:05:00 lindsey Benton MD t0d-4p77-6 l PLLC 9a6-119g97 [facility] 59adb3 2015-05-22 2015-05-22 Refill nullFlavo Pachie S. 8l7221 ce-9 [facility] 13:05:00 13:05:00 lindsey Benton MD dcc-4be2-a l PLLC k93-05q783 [facility] 83c1bb 2015-05-22 2015-05-22 Refill nullFlavo Pachie S. 764c7e 0a-a [facility] 13:05:00 13:05:00 lindsey Benton MD h83-1p57-r l PLLC 376-731ed5 [facility] daad68 2015-05-22 2015-05-22 Refill nullFlavo Pachie S. 10e25d b1-4 [facility] 13:05:00 13:05:00 lindsey Benton MD 11e-4c44-9 l PLLC b0q-0n0ug5 [facility] e09106 2015-05-22 2015-05-22 Refill nullFlavo Andreas S. 0d36e2 cd-c [facility] 13:05:00 13:05:00 lindsey Benton MD h44-9ny7-e l PLLC 54e-316898 [facility] fc76c7 2015-05-22 2015-05-22 Outpatient Andreas S. Andreas S. 113 162 [facility] 08:05:00 08:05:00 MD Chetan Benton MD l PLLC PLLC [place] 2015-04-23 2015-04-23 MEDS. nullFlavo Andreas S. 575f02 37-c [facility] 18:45:00 18:45:00 lindsey Benton MD 78b-468f-b l PLLC u11-1470el [facility] 74ed13 2015-04-23 2015-04-23 MEDS. nullFlavo Andreas S. 6f3e0a a3-0 [facility] 18:45:00 18:45:00 lindsey Benton MD 25e-445b-9 l PLLC 5s7-b4c359 [facility] f704ec 2015-04-23 2015-04-23 MEDS. nullFlavo Andreas S. 46ec3e 74-3 [facility] 18:45:00 18:45:00 lindsey Benton MD 3e9-4ro4-u l PLLC 2ef-82330j [facility] 982129 6595-11-12 2015-04-23 MEDS. nullFlavo Andreas S. 6g2096 1a-1 [facility] 18:45:00 18:45:00 lindsey Benton MD be9-4afd-8 l PLLC p3l-pd6a7a [facility] 687c16 2015-04-23 2015-04-23 MEDS. nullFlavo Andreas S. 4993d5 12-8 [facility] 18:45:00 18:45:00 lindsey Benton MD f09-1dk6-0 l PLLC 7ad-nlx356 [facility] 38dcdf 2015-04-23 2015-04-23 MEDS. nullFlavo Andreas S. fa1be3 b8-d [facility] 18:45:00 18:45:00 lindsey Benton MD 1u3-5j27-g l PLLC p3e-l3h881 [facility] o4855x 2015-04-23 2015-04-23 MEDS. nullFlavo Pachellen S. 7f1562 60-2 [facility] 18:45:00 18:45:00 lindsey Benton MD 58f-4579-9 l PLLC v40-sy8221 [facility] b7d7f3 2015-04-23 2015-04-23 MEDS. nullFlavo Pachellen S. 9acd9c 33-e [facility] 18:45:00 18:45:00 lindsey Benton MD f76-157r-q l PLLC 170-513a3a [facility] 796f6e 2015-04-23 2015-04-23 MEDS. nullFlavo Pachellen S. 41400i 1d-3 [facility]oria 18:45:00 18:45:00 lindsey Benton MD o81-1y91-4 l PLLC 366-vu368f [facility] dd64a6 2015-04-23 2015-04-23 MEDS. nullFlavo Pachellen S. 5f02be 44-3 [facility] 18:45:00 18:45:00 lindsey Benton MD 5w1-7esj-e l PLLC o32-jw5142 [facility] 81703w 2015-04-23 2015-04-23 MEDS. nullFlavo Pachellen S. i1985p c3-d [facility]oria 18:45:00 18:45:00 lindsey Benton MD 0bc-440b-9 l PLLC 313-190808 [facility] 6w378g 2015-04-23 2015-04-23 MEDS. nullFlavo Pachellen S. d3e11f c9-b [facility] 17:45:00 17:45:00 lindsey Benton MD 6f2-08wk-f l PLLC ea3-8m1123 [facility] bcb6af 2015-04-23 2015-04-23 MEDS. nullFlavo Pachie S. 294dbc 49-c [facility]oria 17:45:00 17:45:00 lindsey Benton MD s8l-0s6j-5 l PLLC 2m3-418230 [facility] 0x5713 2015-04-23 2015-04-23 MEDS. nullFlavo Pachie S. 7uz845 86-3 [facility] 17:45:00 17:45:00 lindsey Benton MD 7db-4c0e-8 l PLLC 2cd-0e92cb [facility] nn 387946 5278-11-12 2015-04-23 MEDS. nullFlavo Pachie S. a939f0 dc-a [facility] 17:45:00 17:45:00 lindsey Benton MD 740-4bb3-a l PLLC b83-z10145 [facility] nn 395fc1 2015-04-23 2015-04-23 MEDS. nullFlavo Pachie S. f798ae 51-6 [facility] 17:45:00 17:45:00 lindsey Benton MD h63-85p3-z l PLLC 5dd-77bc40 [facility] nn 114a43 2015-04-23 2015-04-23 Outpatient Pachie S. Pachie S. 111 725 [facility]oria 12:45:00 12:45:00 MD Chetan Benton MD l PLLC PLLC [place] 2015-03-19 2015-03-19 [place] nullFlavo Pachie S. c0c70 4c3-5 Memoria 14:48:00 14:48:00 lindsey Benton MD 7g4-5a89-0 l PLLC 0ab-59b4d0 [facility] 6h6902 2015-03-19 2015-03-19 ad[place] nullFlavo Pachie S. ebfae e82-2 Memoria 14:48:00 14:48:00 lindsey Benton MD 49d-40fd-a l PLLC bef-f2b6e1 [facility] nn wx1591 2015-03-19 2015-03-19 adder[place] nullFlavo Pachie S. 1cce5 09f-7 Memoria 14:48:00 14:48:00 lindsey Benton MD fc7-499b-b l PLLC 1d4-xx285g [facility] 14e77c 2015-03-19 2015-03-19 adderall nullFlavo Pachie S. 750a7 bf6-e Memoria 14:48:00 14:48:00 lindsey Benton MD 5ed-4939-b l PLLC b7z-7bg84a [facility] bfecd6 2015-03-19 2015-03-19 adderall nullFlavo Pachie S. ae506 cde-b [facility]oria 14:48:00 14:48:00 lindsey Benton MD t9i-0c36-x l PLLC ee4-s2o553 [facility] nn 76146g 2015-03-19 2015-03-19 adderall nullFlavo Pachie S. e5b28 34f-a Memoria 14:48:00 14:48:00 lindsey Benton MD 22d-4009-8 l PLLC 666-333478 [facility] nn 7d5d0a 2015-03-19 2015-03-19 adderall nullFlavo Pachie S. 34abf 5d7-8 Memoria 14:48:00 14:48:00 lindsey Benton MD l96-3ih5-h l PLLC u68-17b7g8 [facility] nn fb1b2b 2015-03-19 2015-03-19 adder[place] nullFlavo Pachie S. 8de42 c86-c Memoria 14:48:00 14:48:00 lindsey Benton MD 474-43ff-b l PLLC 1y3-1v23e1 [facility] nn 586a01 2015-03-19 2015-03-19 adder[place] nullFlavo Pachie S. f85d2 d7d-e Memoria 14:48:00 14:48:00 lindsey Benton MD w77-970u-i l PLLC 442-50fc74 [facility] nn 3d9c21 2015-03-19 2015-03-19 adderall nullFlavo Pachie S. 48732 e07-8 Memoria 14:48:00 14:48:00 lindsey Benton MD 6eb-4dd3-a l PLLC 467-6aae03 [facility] nn 0d7ecf 2015-03-19 2015-03-19 adderall nullFlavo Pachie S. 913f3 4c1-0 Memoria 14:48:00 14:48:00 lindsey Benton MD 884-4231-a l PLLC 166-197a67 [facility] nn [id number] 2687-10-08 2015-03-19 adderall nullFlavo Pachie S. 2a83e 4b3-5 Memoria 13:48:00 13:48:00 ilndsey Benton MD 642-47a0-b l PLLC n96-ah1t5h [facility] nn 6ed1f1 2015-03-19 2015-03-19 adderall nullFlavo Pachie S. 5381d 06c-9 Memoria 13:48:00 13:48:00 lindsey Benton MD x4r-1tct-9 l PLLC 240-3035f9 [facility] 0ch216 2015-03-19 2015-03-19 adderall nullFlavo Pachie S. ae348 388-3 Memoria 13:48:00 13:48:00 lindsey Benton MD 4q1-0z92-v l PLLC 590-7cead2 [facility] c23f2d 2015-03-19 2015-03-19 adder[place] nullFlavo Pachie S. ea3bb 3fe-e Memoria 13:48:00 13:48:00 lindsey Benton MD 5f1-3g7j-k l PLLC dfb-2q2093 [facility] 467746 0006-10-08 2015-03-19 adder[place] nullFlavo Pachie S. 83665 9f1-f Memoria 13:48:00 13:48:00 lindsey Benton MD 0h4-6d6m-3 l PLLC 07b-7e1da7 [facility] 23316b 2015-02-20 2015-02-20 Refill nullFlavo Pachie S. beb85f 58-b [facility] 15:57:00 15:57:00 lindsey Benton MD cfe-4407-8 l PLLC w07-621527 [facility] 1ccc5a 2015-02-20 2015-02-20 Refill nullFlavo Pachie S. b3fe23 f8-e [facility] 15:57:00 15:57:00 lindsey Benton MD r17-182w-x l PLLC 491-ab95ef [facility] 0ad2b3 2015-02-20 2015-02-20 Refill nullFlavo Pachie S. l13435 67-b [facility] 15:57:00 15:57:00 lindsey Benton MD q4f-4iyp-o l PLLC 113-99eb9a [facility] 384721 1616-09-11 2015-02-20 Refill nullFlavo Pachie S. 6784b9 1c-d Memoria 15:57:00 15:57:00 lindsey Benton MD 013-40d0-a l PLLC a4k-13v4c3 [facility] nn c99a8e 2015-02-20 2015-02-20 Refill nullFlavo Pachie S. p58244 75-7 [facility] 15:57:00 15:57:00 lindsey Benton MD fd3-4ff7-b l PLLC 164-65e6ff [facility] nn 2ad0e9 2015-02-20 2015-02-20 Refill nullFlavo Pachie S. 982f44 b1-d [facility]oria 15:57:00 15:57:00 lindsey Benton MD fdf-4bc9-a l PLLC 12b-845bea [facility] nn dd9c79 2015-02-20 2015-02-20 Refill nullFlavo Pachie S. 96c1e8 6b-a [facility]oria 15:57:00 15:57:00 lindsey Benton MD fdb-47d5-b l PLLC 854-c39cb1 [facility] nn 85420g 2015-02-20 2015-02-20 Refill nullFlavo Pachie S. c0c3b3 50-c [facility] 15:57:00 15:57:00 lindsey Benton MD t3c-3841-w l PLLC fba-140988 [facility] nn c75c60 2015-02-20 2015-02-20 Refill nullFlavo Pachie S. 2414b9 37-f [facility]oria 15:57:00 15:57:00 lindsey Benton MD n85-5v21-z l PLLC 032-5a34c1 [facility] nn b2b3e6 2015-02-20 2015-02-20 Refill nullFlavo Pachie S. a9fafa 39-4 [facility] 15:57:00 15:57:00 lindsey Benton MD bd9-40f7-9 l PLLC 497-4c14da [facility] nn e4f73e 2015-02-20 2015-02-20 Refill nullFlavo Pachie S. 07f2e8 e8-b [facility]oria 15:57:00 15:57:00 lindsey Benton MD 386-421c-8 l PLLC o30-d6372x [facility] nn 020343 4602-09-11 2015-02-20 Refill nullFlavo Pachie S. 06f2a0 1d-f [facility]oria 14:57:00 14:57:00 lindsey Benton MD faa-4a5c-9 l PLLC 418-0f6d44 [facility] 4d61a3 2015-02-20 2015-02-20 Refill nullFlavo Pachie S. 40b8e0 aa-4 Memoria 14:57:00 14:57:00 lindsey Benton MD 034-42cc-a l PLLC 047-5d24d6 [facility] pz116o 2015-02-20 2015-02-20 Refill nullFlavo Pachie S. bc77b5 fe-6 [facility]oria 14:57:00 14:57:00 lindsey Benton MD 711-47bf-b l PLLC 7a6-477k30 [facility] 7b76ab 2015-02-20 2015-02-20 Refill nullFlavo Pachie S. 53a53f 8d-9 Memoria 14:57:00 14:57:00 lindsey Benton MD 376-40a6-b l PLLC d70-5266te [facility] 3263bc 2015-02-20 2015-02-20 Refill nullFlavo Pachie S. j41839 2b-8 [facility]oria 14:57:00 14:57:00 lindsey Benton MD 66d-4f2f-a l PLLC cda-d7eedc [facility] 5b1ec4 2015-02-20 2015-02-20 Refill nullFlavo Pachie S. 5d8bb5 f1-a [facility]oria 14:57:00 14:57:00 lindsey Benton MD h01-904q-2 l PLLC 13d-565067 [facility] d850b4 2015-02-20 2015-02-20 Outpatient Pachie S. Pachie S. [id number] 833 Memoria 09:57:00 09:57:00 MD Chetan Benton MD l PLLC PLLC [place] 2015-01-29 2015-01-29 BACK PAIN nullFlavo Pachie S. ba2a 18d8-d Memoria 14:00:00 14:00:00 lindsey Benton MD 7d0-5s49-e l PLLC fff-f87c59 [facility] p1r420 2015-01-29 2015-01-29 BACK PAIN nullFlavo Pachie S. 7a23 1d37-9 Memoria 14:00:00 14:00:00 lindsey Benton MD cc8-45cc-9 l PLLC g12-733219 [facility] nn 1cfa0b 2015-01-29 2015-01-29 BACK PAIN nullFlavo Pachie S. 78f6 8a13-6 Memoria 14:00:00 14:00:00 lindsey Benton MD 1e5-0pns-j l PLLC l38-t6kmj3 [facility] nn qb2619 2015-01-29 2015-01-29 BACK PAIN nullFlavo Pachie S. 864c 5b5e-3 Memoria 14:00:00 14:00:00 lindsey Benton MD 78e-4de0-9 l PLLC 9k1-5b463v [facility] nn 850c65 2015-01-29 2015-01-29 BACK PAIN nullFlavo Pachie S. 5a57 7e71-c Memoria 14:00:00 14:00:00 lindsey Benton MD 546-4cf5-8 l PLLC q56-qg74ia [facility] nn 2183e6 2015-01-29 2015-01-29 BACK PAIN nullFlavo Pachie S. 1f2d f47d-3 Memoria 14:00:00 14:00:00 lindsey Benton MD 558-4f18-8 l PLLC 882-32fa21 [facility] nn 186c61 2015-01-29 2015-01-29 BACK PAIN nullFlavo Pachie S. f5fd 5fba-7 Memoria 14:00:00 14:00:00 lindsey Benton MD 57d-4dde-8 l PLLC 71b-cfb251 [facility] nn [id number] 3898-08-20 2015-01-29 BACK PAIN nullFlavo Pachie S. 35e1 fcaa-4 Memoria 14:00:00 14:00:00 lindsey Benton MD 797-4c70-9 l PLLC 379-6d45c3 [facility] nn 6400a8 2015-01-29 2015-01-29 BACK PAIN nullFlavo Pachie S. 757c 2f9b-c Memoria 14:00:00 14:00:00 lindsey Benton MD o19-5k9e-0 l PLLC x41-283525 [facility] nn e713f5 2015-01-29 2015-01-29 BACK PAIN nullFlavo Pachie S. 3a88 651e-1 Memoria 14:00:00 14:00:00 lindsey Benton MD 172-4fea-9 l PLLC 254-ca1dae [facility] nn z3x267 2015-01-29 2015-01-29 BACK PAIN nullFlavo Pachie S. 2754 0e9c-0 Memoria 14:00:00 14:00:00 lindsey Benton MD i38-566k-2 l PLLC 0ab-3eda86 [facility] nn f3fb3d 2015-01-29 2015-01-29 BACK PAIN nullFlavo Pachie S. a09d 67de-4 Memoria 13:00:00 13:00:00 lindsey Benton MD 5k7-5432-x l PLLC be0-363054 [facility] yadira adfd60 2015-01-29 2015-01-29 BACK PAIN nullFlavo Pachie S. e1df 5e5b-f [facility]oria 13:00:00 13:00:00 lindsey Benton MD o6s-31p5-2 l PLLC 079-20d0b1 [facility] nn 60e90f 2015-01-29 2015-01-29 BACK PAIN nullFlavo Pachie S. 52f8 ef95-d Memoria 13:00:00 13:00:00 lindsey Benton MD 79d-4867-a l PLLC f16-zaur5f [facility] yadira hl746o 2015-01-29 2015-01-29 BACK PAIN nullFlavo Pachie S. 1410 010a-a Memoria 13:00:00 13:00:00 lindsey Benton MD n83-05q5-7 l PLLC 716-7ffb62 [facility] dafd4b 2015-01-29 2015-01-29 BACK PAIN nullFlavo Pachie S. 8d32 aeaa-7 Memoria 13:00:00 13:00:00 lindsey Benton MD 356-49f0-8 l PLLC 709-3eb6a0 [facility] nn [id number] 4697-08-20 2015-01-29 BACK PAIN nullFlavo Pachie S. d94b 4f0b-d [facility]oria 13:00:00 13:00:00 lindsey Benton MD 459-42f2-8 l PLLC 932-5516d4 [facility] 8d9c9e 2015-01-29 2015-01-29 BACK PAIN nullFlavo Pachie S. b4b6 21eb-4 Memoria 13:00:00 13:00:00 lindsey Benton MD 6b0-01dh-p l PLLC 6y4-21bdj4 [facility] nn 7f3dd9 2015-01-29 2015-01-29 Outpatient Andreas S. Andreas S. 107 471 [facility] 08:00:00 08:00:00 MD Chetan Benton MD l PLLC PLLC [place] 2015-01-19 2015-01-19 Refill nullFlavo Andreas S. 95g193 70-5 [facility] 16:08:00 16:08:00 lindsey Benton MD 9ba-407f-8 l PLLC 59a-4e0a5a [facility] nn 9339d1 2015-01-19 2015-01-19 Refill nullFlavo Andreas S. 249673 34-0 [facility] 16:08:00 16:08:00 lindsey Benton MD 9da-4e75-b l PLLC k48-5j31i4 [facility] nn f5d38c 2015-01-19 2015-01-19 Refill nullFlavo Andreas S. 13056p 76-4 [facility] 16:08:00 16:08:00 lindsey Benton MD da7-4f46-a l PLLC r5u-a289tu [facility] nn 17cf46 2015-01-19 2015-01-19 Refill nullFlavo Andreas S. 0a4ba0 8d-f [facility] 16:08:00 16:08:00 lindsey Benton MD fb4-478c-9 l PLLC r18-7318et [facility] nn cd20b8 2015-01-19 2015-01-19 Refill nullFlavo Andreas S. 751a27 d7-b [facility] 16:08:00 16:08:00 lindsey Benton MD 014-4b57-8 l PLLC 3i5-9x82l7 [facility] nn 179d13 2015-01-19 2015-01-19 Refill nullFlavo Pachie S. o4954n 77-3 [facility] 16:08:00 16:08:00 lindsey Benton MD 1f3-4k5k-2 l PLLC 07b-89cbbf [facility] nn 012536 9260-08-10 2015-01-19 Refill nullFlavo Pachie S. 8bddc5 c8-2 [facility] 16:08:00 16:08:00 lindsey Benton MD p2g-7br1-q l PLLC 529-a162fd [facility] nn xto370 2015-01-19 2015-01-19 Refill nullFlavo Pachie S. 4db11f 2e-2 [facility] 16:08:00 16:08:00 lindsey Benton MD da4-4ed4-8 l PLLC 839-02531y [facility] nn 197e59 2015-01-19 2015-01-19 Refill nullFlavo Pachie S. 5c4a1e 1b-8 [facility] 16:08:00 16:08:00 lindsey Benton MD 08f-4196-9 l PLLC 3s9-38fq22 [facility] nn 09aa2f 2015-01-19 2015-01-19 Refill nullFlavo Pachie S. d969cc 3f-a [facility] 16:08:00 16:08:00 lindsey Benton MD a69-742m-6 l PLLC r0c-5wm05t [facility] nn f3ef61 2015-01-19 2015-01-19 Refill nullFlavo Pachie S. 065c73 aa-e [facility] 16:08:00 16:08:00 lindsey Benton MD 6o2-91xh-8 l PLLC 66c-wg7932 [facility] nn c02ea4 2015-01-19 2015-01-19 Refill nullFlavo Pachie S. a6cb85 5f-1 [facility] 15:08:00 15:08:00 lindsey Benton MD m55-2m30-t l PLLC 054-423e5f [facility] nn 4n7588 2015-01-19 2015-01-19 Refill nullFlavo Pachie S. a8f20a cc-8 [facility] 15:08:00 15:08:00 lindsey Benton MD 82d-45d8-9 l PLLC 51a-1r184w [facility] nn d3e57c 2015-01-19 2015-01-19 Refill nullFlavo Pachie S. 65fd12 5c-0 [facility] 15:08:00 15:08:00 lindsey Benton MD 5dc-40e9-b l PLLC bc1-33da38 [facility] nn 9aecdd 2015-01-19 2015-01-19 Refill nullFlavo Pachie S. c25ce2 db-b [facility] 15:08:00 15:08:00 lindsey Benton MD 045-43dc-9 l PLLC 81c-af0d7e [facility] 7bfdb3 2015-01-19 2015-01-19 Refill nullFlavo Pachie S. 898bf6 5a-4 [facility]oria 15:08:00 15:08:00 lindsey Benton MD 9a2-3733-f l PLLC u46-gua2b3 [facility] 0005c6 2015-01-19 2015-01-19 Refill nullFlavo Pachie S. 51z152 d9-e [facility] 15:08:00 15:08:00 lindsey Benton MD 2v7-5b83-3 l PLLC 550-1270fb [facility] 66499s 2015-01-19 2015-01-19 Refill nullFlavo Pachie S. 5i6420 a0-f [facility] 15:08:00 15:08:00 lindsey Benton MD 978-4a11-a l PLLC v1n-li5kd2 [facility] 700379 7086-07-07 2014-12-16 Refill nullFlavo Pachie S. 58038h df-9 [facility] 16:00:00 16:00:00 lindsey Benton MD ff4-42d2-9 l PLLC fc1-2a7cc4 [facility] 0fb6c3 2014-12-16 2014-12-16 Refill nullFlavo Pachie S. 7s4619 14-8 [facility] 16:00:00 16:00:00 lindsey Benton MD 2b2-1f2n-1 l PLLC af1-62911k [facility] d114fd 2014-12-16 2014-12-16 Refill nullFlavo Pachie S. 16e1a8 2c-2 [facility] 16:00:00 16:00:00 lindsey Benton MD cf2-48d9-8 l PLLC 873-mh1188 [facility] 8fab70 2014-12-16 2014-12-16 Refill nullFlavo Pachie S. 9e8dfb dc-0 [facility] 16:00:00 16:00:00 lindsey Benton MD 815-410f-a l PLLC 98e-46d20e [facility] nn d02a80 2014-12-16 2014-12-16 Refill nullFlavo Pachie S. 7a12d8 c7-2 [facility] 16:00:00 16:00:00 lindsey Benton MD 78d-4a28-8 l PLLC 0c2-f06r5x [facility] nn f9ee35 2014-12-16 2014-12-16 Refill nullFlavo Pachie S. gd5553 72-4 [facility] 16:00:00 16:00:00 lindsey Benton MD 525-47af-8 l PLLC 7x4-230om1 [facility] nn 15f4fa 2014-12-16 2014-12-16 Refill nullFlavo Pachie S. d7f5a3 33-7 [facility] 16:00:00 16:00:00 lindsey Benton MD 24b-4887-b l PLLC 063-6a8c29 [facility] nn nr9838 2014-12-16 2014-12-16 Refill nullFlavo Pachie S. daca9c 4a-1 [facility] 16:00:00 16:00:00 lindsey Benton MD i9a-866i-u l PLLC q8n-i380h0 [facility] nn a663bf 2014-12-16 2014-12-16 Refill nullFlavo Pachie S. 6424a1 8d-d [facility] 16:00:00 16:00:00 lindsey Benton MD y01-4018-i l PLLC 03c-08d14e [facility] nn [id number] 3541-07-07 2014-12-16 Refill nullFlavo Pachie S. [id number] 46-8 [facility] 16:00:00 16:00:00 lindsey Benton MD 7fb-4fa4-9 l PLLC [id number] [facility] nn [id number] 2014-12-16 2014-12-16 Refill nullFlavo Pachie S. 633c67 ed-7 [facility] 16:00:00 16:00:00 lindsey Benton MD 68d-400a-9 l PLLC [id number]-v00p58 [facility] nn [id number] 2014-12-16 2014-12-16 Refill nullFlavo Pachie S. 89edc2 66-0 [facility] 15:00:00 15:00:00 lindsey Benton MD s5b-19s2-4 l PLLC 2t2-k375f9 [facility] nn [id number] 2014-12-16 2014-12-16 Refill nullFlavo Pachie S. [id number] 1c-2 [facility] 15:00:00 15:00:00 lindsey Benton MD ca6-43cc-8 l PLLC [id number] [facility] nn [id number] 2014-12-16 2014-12-16 Refill nullFlavo Pachie S. 32e1ce 69-f [facility] 15:00:00 15:00:00 lindsey Benton MD 3z0-5jls-g l PLLC [id number] [facility] nn [id number] 2014-12-16 2014-12-16 Refill nullFlavo Pachie S. 108fe8 79-e [facility] 15:00:00 15:00:00 lindsey Benton MD 20d-40ae-8 l PLLC 9h8-wss89b [facility] thg794 2014-12-16 2014-12-16 Refill nullFlavo Pachie S. 5254fb 4c-7 [facility] 15:00:00 15:00:00 lindsey Benton MD 201-4665-8 l PLLC s98-sm14lz [facility] nn e44b6b 2014-12-16 2014-12-16 Refill nullFlavo Pachie S. 2f5c5e b6-f [facility] 15:00:00 15:00:00 lindsey Benton MD 56d-49d0-b l PLLC [id number] [facility] nn [id number] 2014-12-16 2014-12-16 Refill nullFlavo Pachie S. [id number] 1b-4 [facility] 15:00:00 15:00:00 lindsey Benton MD b53-443y-1 l PLLC [id number]-432318 [facility] nn [id number] 2014-12-16 2014-12-16 Refill nullFlavo Pachie S. 9l456i 77-b [facility] 15:00:00 15:00:00 lindsey Benton MD de5-4fae-9 l PLLC e32-zu8v20 [facility] nn [id number] 2014-12-16 2014-12-16 Outpatient Pachie S. Pachie S. 105 377 [facility] 10:00:00 10:00:00 MD Chetan Benton MD l PLLC PLLC [place] 2014-11-17 2014-11-17 ADD nullFlavo Pachie S. e8660f 49-5 [facility] 16:00:00 16:00:00 lindsey Benton MD 5cd-498d-9 l PLLC [id number]-y47412 [facility] [id number] 2014-11-17 2014-11-17 ADD nullFlavo Pachie S. 44d48a 72-5 [facility] 16:00:00 16:00:00 lindsey Benton MD w2r-386y-1 l PLLC 587-e68ef5 [facility] 7c822v 2014-11-17 2014-11-17 ADD nullFlavo Pachie S. b0ebb6 9c-0 [facility] 16:00:00 16:00:00 lindsey Benton MD x9g-45ts-k l PLLC [id number]-q17885 [facility] x8r222 2014-11-17 2014-11-17 ADD nullFlavo Pachie S. e473e5 de-d [facility] 16:00:00 16:00:00 lindsey Benton MD 67a-4917-a l PLLC 9cc-0012b2 [facility] pk299q 2014-11-17 2014-11-17 ADD nullFlavo Pachie S. 4b6a83 bf-8 [facility] 16:00:00 16:00:00 lindsey Benton MD b1k-476z-b l PLLC [id number] [facility] 38a4c3 2014-11-17 2014-11-17 ADD nullFlavo Pachie S. f2399i 38-b [facility] 16:00:00 16:00:00 lindsey Benton MD ddb-471d-a l PLLC 383-121ffe [facility] f4f18b 2014-11-17 2014-11-17 ADD nullFlavo Pachie S. 555d26 67-e [facility] 16:00:00 16:00:00 lindsey Benton MD e7p-6j01-2 l PLLC 5l9-4v432r [facility] nn 217c4e 2014-11-17 2014-11-17 ADD nullFlavo Pachie S. 0c13a8 59-4 [facility] 16:00:00 16:00:00 lindsey Benton MD 970-4942-b l PLLC 364-73v887 [facility] nn cfcfac 2014-11-17 2014-11-17 ADD nullFlavo Pachie S. 1fdfb9 a4-9 [facility] 16:00:00 16:00:00 lindsey Benton MD bd2-46a9-9 l PLLC 669-edb0d6 [facility] nn d7c8da 2014-11-17 2014-11-17 ADD nullFlavo Pachie S. 81019k 5a-c [facility] 16:00:00 16:00:00 lindsey Benton MD 993-454f-a l PLLC 04c-808efe [facility] nn 043b7c 2014-11-17 2014-11-17 ADD nullFlavo Pachie S. 86fae5 29-1 [facility] 16:00:00 16:00:00 lindsey Benton MD 809-49c0-b l PLLC s23-0v8899 [facility] nn 6edcc2 2014-11-17 2014-11-17 ADD nullFlavo Pachie S. 2rs458 e0-a [facility] 15:00:00 15:00:00 lindsey Benton MD bc6-4e05-b l PLLC [id number] [facility] nn [id number] 2014-11-17 2014-11-17 ADD nullFlavo Pachie S. 3h7747 7a-8 [facility] 15:00:00 15:00:00 lindsey Benton MD c07-91p6-6 l PLLC z24-4223y1 [facility] nn [id number] 2014-11-17 2014-11-17 ADD nullFlavo Pachie S. 28f7dd 00-0 [facility] 15:00:00 15:00:00 lindsey Benton MD 505-4972-8 l PLLC l14-6465g6 [facility] nn 4110a1 2014-11-17 2014-11-17 ADD nullFlavo Pachie S. 3d71fd 0b-8 [facility] 15:00:00 15:00:00 lindsey Benton MD 616-4246-a l PLLC w83-9uxoz3 [facility] nn 7e67b5 2014-11-17 2014-11-17 ADD nullFlavo Pachie S. c0e6a6 49-2 [facility] 15:00:00 15:00:00 lindsey Benton MD 8b8-10kt-1 l PLLC 461-800c10 [facility] nn b4ffa9 2014-11-17 2014-11-17 ADD nullFlavo Pachie S. 8217c7 ec-4 [facility] 15:00:00 15:00:00 lindsey Benton MD 10c-42ce-b l PLLC 221-a8cf79 [facility] nn b9da50 2014-11-17 2014-11-17 ADD nullFlavo Pachie S. f45c22 d0-5 [facility] 15:00:00 15:00:00 lindsey Benton MD 493-4ed6-a l PLLC 458-0506e4 [facility] nn [id number] 9318-06-08 2014-11-17 ADD nullFlavo Pachie S. bd7acb 14-2 [facility] 15:00:00 15:00:00 lindsey Benton MD 1f4-4091-8 l PLLC [id number]-h43337 [facility] nn 77bdf2 2014-09-05 2014-09-05 Unknown nullFlavo Pachie S. ec7496 9a-4 [facility] 17:56:00 17:56:00 lindsey Benton MD 3fb-4cfb-b l PLLC 55d-eb91ff [facility] nn 44e31f 2014-09-05 2014-09-05 Unknown nullFlavo Pachie S. e6cbad bc-3 [facility] 17:56:00 17:56:00 lindsey Benton MD y45-6337-9 l PLLC 784-42w348 [facility] nn 19eec4 2014-09-05 2014-09-05 Unknown nullFlavo Pachie S. 5bfc89 22-0 [facility] 17:56:00 17:56:00 lindsey Benton MD n94-6070-a l PLLC d0j-g010n9 [facility] nn 1341a9 2014-09-05 2014-09-05 Unknown nullFlavo Pachie S. 93de29 83-1 [facility] 17:56:00 17:56:00 lindsey Benton MD h7r-4hi2-i l PLLC 1df-486a43 [facility] nn [id number] 2014-09-05 2014-09-05 Unknown nullFlavo Pachie S. ea17fa 84-a [facility] 17:56:00 17:56:00 lindsey Benton MD n11-5hyc-u l PLLC ce6-c0e9e8 [facility] nn 4bc6cd 2014-09-05 2014-09-05 Unknown nullFlavo Pachie S. q0z764 1b-7 [facility] 17:56:00 17:56:00 lindsey Benton MD 9z4-4wax-9 l PLLC p2g-3mr80y [facility] nn e4d3e5 2014-09-05 2014-09-05 Unknown nullFlavo Pachie S. 0d0f22 0d-1 [facility] 17:56:00 17:56:00 lindsey Benton MD 0bb-4f50-9 l PLLC v99-z3x9on [facility] nn 40d5a5 2014-09-05 2014-09-05 Unknown nullFlavo Pachie S. 704fd7 47-8 [facility] 17:56:00 17:56:00 lindsey Benton MD 4eb-4a05-9 l PLLC aa1-33c26f [facility] nn 0ebd0e 2014-09-05 2014-09-05 Unknown nullFlavo Pachie S. 81832f 93-7 [facility] 17:56:00 17:56:00 lindsey Benton MD 549-4e30-8 l PLLC ab2-79ce9f [facility] nn 2e5eb1 2014-09-05 2014-09-05 Unknown nullFlavo Pachie S. f34230 2f-9 [facility] 17:56:00 17:56:00 lindsey Benton MD 90a-4b49-a l PLLC u15-0n563b [facility] nn dfb29e 2014-09-05 2014-09-05 Unknown nullFlavo Pachie S. 63eab3 e2-0 [facility] 17:56:00 17:56:00 lindsey Benton MD 601-493e-a l PLLC 845-ce9bf4 [facility] nn 18217i 2014-09-05 2014-09-05 Unknown nullFlavo Pachie S. ni2386 01-a [facility] 16:56:00 16:56:00 lindsey Benton MD 718-4d78-a l PLLC k04-92z89z [facility] nn 1ss171 2014-09-05 2014-09-05 Unknown nullFlavo Pachie S. eo4530 29-8 [facility] 16:56:00 16:56:00 lindsey Benton MD 66f-4b7f-9 l PLLC 739-7b0c3e [facility] 6b4ad0 2014-09-05 2014-09-05 Unknown nullFlavo Pachie S. 470806 33-0 [facility] 16:56:00 16:56:00 lindesy Benton MD eaf-4405-9 l PLLC 036-dr4487 [facility] 6o5996 2014-09-05 2014-09-05 Unknown nullFlavo Pachie S. 3b651p 9d-4 [facility] 16:56:00 16:56:00 lindsey Benton MD 4aa-477d-a l PLLC 7ef-ea52e0 [facility] 0o0381 2014-09-05 2014-09-05 Unknown nullFlavo Pachie S. 9e4def d9-0 [facility] 16:56:00 16:56:00 lindsey Benton MD 93d-4bf7-9 l PLLC 05b-d4a13e [facility] f1ec99 2014-09-05 2014-09-05 Unknown nullFlavo Pachie S. b3bea3 2f-d [facility] 16:56:00 16:56:00 lindsey Benton MD 5ed-4c92-a l PLLC 23e-y64889 [facility] 87c32e 2014-09-05 2014-09-05 Unknown nullFlavo Pachie S. 7e79be 2b-4 [facility] 16:56:00 16:56:00 lindsey Benton MD 1bd-4075-a l PLLC 1eb-n4873j [facility] bbddda 2014-09-05 2014-09-05 Unknown nullFlavo Pachie S. 78e09f 8a-8 [facility] 16:56:00 16:56:00 lindsey Benton MD t04-5547-v l PLLC 0y2-683949 [facility] 295525 6731-02-20 2014-08-01 Refill nullFlavo Pachie S. c4ca39 c5-c [facility] 16:20:00 16:20:00 lindsey Benton MD 0ad-4d5a-9 l PLLC o27-i5f623 [facility] fe5c23 2014-08-01 2014-08-01 Refill nullFlavo Pachie S. 7165ab b9-2 [facility] 16:20:00 16:20:00 lindsey Benton MD 419-4b43-b l PLLC 612-i0639r [facility] 2cbece 2014-08-01 2014-08-01 Refill nullFlavo Pachie S. 829e52 da-9 [facility] 16:20:00 16:20:00 lindsey Benton MD g79-71i9-5 l PLLC 54a-113e59 [facility] 899731 9932-02-20 2014-08-01 Refill nullFlavo Pachie S. g20766 7b-2 [facility] 16:20:00 16:20:00 lindsey Benton MD 6da-4962-b l PLLC k1h-9723t9 [facility] n7s917 2014-08-01 2014-08-01 Refill nullFlavo Pachie S. 292ae0 64-b [facility] 16:20:00 16:20:00 lindsey Benton MD 52e-48d0-a l PLLC bf8-9j7545 [facility] b8cbfe 2014-08-01 2014-08-01 Refill nullFlavo Pachie S. ad0ec5 fc-a [facility] 16:20:00 16:20:00 lindsey Benton MD 3df-464c-8 l PLLC n39-28873a [facility] 5c3c45 2014-08-01 2014-08-01 Refill nullFlavo Pachie S. 7x9357 98-e [facility] 16:20:00 16:20:00 lindsey Benton MD 229-4cbb-b l PLLC 992-8c33fc [facility] 2gd714 2014-08-01 2014-08-01 Refill nullFlavo Pachie S. d7ebe2 5b-4 [facility] 16:20:00 16:20:00 lindsey Benton MD d0r-31b7-c l PLLC 091-j7c904 [facility] 981629 3816-02-20 2014-08-01 Refill nullFlavo Pachie S. n27219 9c-1 [facility] 16:20:00 16:20:00 lindsey Benton MD 4s7-1014-y l PLLC ab4-a512a6 [facility] nn 68ae12 2014-08-01 2014-08-01 Refill nullFlavo Pachie S. 8c97e8 b0-0 [facility] 16:20:00 16:20:00 lindsey Benton MD fe6-4540-8 l PLLC 1c9-j64wn8 [facility] nn 5df22f 2014-08-01 2014-08-01 Refill nullFlavo Pachie S. 9f6c59 28-e [facility] 16:20:00 16:20:00 lindsey Benton MD z09-4fc5-6 l PLLC cb9-56bf69 [facility] nn 74492h 2014-08-01 2014-08-01 Refill nullFlavo Pachie S. 814da8 8c-f [facility] 16:20:00 16:20:00 lindsey Benton MD 02e-49a0-9 l PLLC 095-4b3b6f [facility] nn 0980b9 2014-08-01 2014-08-01 Refill nullFlavo Pachie S. 233a0f 78-7 [facility] 15:20:00 15:20:00 lindsey Benton MD 347-44c9-8 l PLLC caa-8cecf0 [facility] nn b5c0f9 2014-08-01 2014-08-01 Refill nullFlavo Pachie S. k4s830 1c-8 [facility] 15:20:00 15:20:00 lindsey Benton MD 52e-4df5-9 l PLLC j94-uk19uc [facility] nn d59765 2014-08-01 2014-08-01 Refill nullFlavo Pachie S. dp7070 f1-6 [facility] 15:20:00 15:20:00 lindsey Benton MD p94-80jp-s l PLLC x5p-734844 [facility] nn 90a7f8 2014-08-01 2014-08-01 Refill nullFlavo Pachie S. 19f8b5 e1-c [facility] 15:20:00 15:20:00 lindsey Benton MD 159-48a4-a l PLLC 6h4-s7g90s [facility] nn 8t7154 2014-08-01 2014-08-01 Refill nullFlavo Pachie S. c25af1 5c-7 [facility] 15:20:00 15:20:00 lindsey Benton MD a13-7lk9-0 l PLLC 361-de25b0 [facility] 97d3f3 2014-08-01 2014-08-01 Refill nullFlavo Pachie S. fc06a1 4e-f [facility] 15:20:00 15:20:00 lindsey Benton MD 634-4aa7-b l PLLC 9a1-cny6wy [facility] 696f3b 2014-08-01 2014-08-01 Refill nullFlavo Pachie S. f85a49 2b-b [facility] 15:20:00 15:20:00 lindsey Benton MD 529-40bd-b l PLLC 52a-301095 [facility] eaa64c 2014-08-01 2014-08-01 Refill nullFlavo Pachie S. 4bf3be b8-6 [facility] 15:20:00 15:20:00 lindsey Benton MD 9v4-726c-8 l PLLC 8b2-9913r0 [facility] t2k304 2014-07-14 2014-07-14 add nullFlavo Pachie S. 175e76 9e-3 [facility] 19:45:00 19:45:00 lindsey Benton MD 884-4240-b l PLLC 00e-f4b7c2 [facility] 289244 1840-02-02 2014-07-14 add nullFlavo Pachie S. 326cdc 53-8 [facility] 19:45:00 19:45:00 lindsey Benton MD 946-43d5-a l PLLC ccd-010e4e [facility] 8t693w 2014-07-14 2014-07-14 add nullFlavo Pachie S. 0cf55e 62-1 [facility] 19:45:00 19:45:00 lindsey Benton MD 72c-48d2-b l PLLC 220-ph5493 [facility] pu6047 2014-07-14 2014-07-14 add nullFlavo Pachie S. 25e13a 0e-a [facility] 19:45:00 19:45:00 lindsey Benton MD w9q-170k-8 l PLLC 210-d473f2 [facility] ade00c 2014-07-14 2014-07-14 add nullFlavo Pachie S. 170b95 52-6 [facility] 19:45:00 19:45:00 lindsey Benton MD 9n5-82dh-j l PLLC j28-98w79s [facility] nn fc38c0 2014-07-14 2014-07-14 add nullFlavo Pachie S. 13e51a 13-b [facility] 19:45:00 19:45:00 lindsey Benton MD 082-4f2e-a l PLLC 08b-lb207r [facility] nn b75dae 2014-07-14 2014-07-14 add nullFlavo Pachie S. xg095u 6a-f [facility] 19:45:00 19:45:00 lindsey Benton MD 802-431c-9 l PLLC 3ee-v4j098 [facility] nn 7e84bd 2014-07-14 2014-07-14 add nullFlavo Pachie S. babb99 eb-e [facility] 19:45:00 19:45:00 lindsey Benton MD 246-4e2e-9 l PLLC n7c-dgzi3b [facility] nn 104060 9780-02-02 2014-07-14 add nullFlavo Pachie S. cf73b0 60-a [facility] 19:45:00 19:45:00 lindsey Benton MD 2a7-0j8b-2 l PLLC 3fd-9dce94 [facility] nn c1bdb7 2014-07-14 2014-07-14 add nullFlavo Pachie S. 996ff1 65-2 [facility] 19:45:00 19:45:00 lindsey Benton MD 3r8-18t8-n l PLLC 684-7b140t [facility] nn 2e9be3 2014-07-14 2014-07-14 add nullFlavo Pachie S. 541cd8 16-7 [facility] 19:45:00 19:45:00 lindsey Benton MD ef6-40ca-b l PLLC ae5-f4e77d [facility] nn 46p294 2014-07-14 2014-07-14 add nullFlavo Pachie S. 51ec1b 39-8 [facility] 19:45:00 19:45:00 lindsey Benton MD 7r4-1171-9 l PLLC cb6-666e7c [facility] nn 578c5a 2014-07-14 2014-07-14 add nullFlavo Pachie S. u97592 93-e [facility] 18:45:00 18:45:00 lindsey Benton MD 896-40e2-9 l PLLC 428-68bbf7 [facility] nn aef4d2 2014-07-14 2014-07-14 add nullFlavo Pachie S. 688b4b ab-9 [facility] 18:45:00 18:45:00 lindsey Benton MD faa-4d24-b l PLLC fa3-3345ba [facility] nn 91c62b 2014-07-14 2014-07-14 add nullFlavo Pachie S. e9ef47 62-f [facility] 18:45:00 18:45:00 lindsey Benton MD 7fe-43cf-8 l PLLC 3n2-4g7824 [facility] nn 445ebd 2014-07-14 2014-07-14 add nullFlavo Pachie S. 95d69a af-9 [facility] 18:45:00 18:45:00 lindsey Benton MD 7a8-4332-e l PLLC 44e-befbf1 [facility] nn 9o9191 2014-07-14 2014-07-14 add nullFlavo Pachie S. 144a24 7c-e [facility] 18:45:00 18:45:00 lindsey Benton MD 9q2-2987-v l PLLC 9d9-8g6238 [facility] nn 81cc22 2014-07-14 2014-07-14 add nullFlavo Andreas S. w65139 cf-a [facility] 18:45:00 18:45:00 lindsey Benton MD 209-49e0-9 l PLLC l84-v3fric [facility] nn d92f23 2014-07-14 2014-07-14 add nullFlavo Pachie S. 541578 07-4 [facility] 18:45:00 18:45:00 lindsey Benton MD 908-4a14-9 l PLLC 6g1-me03r2 [facility] nn 259a5c 2014-07-14 2014-07-14 add nullFlavo Pachie S. y13866 01-c [facility] 18:45:00 18:45:00 lindsey Benton MD 7da-4674-b l PLLC ad5-981ef0 [facility] nn 07bc41 2014-07-14 2014-07-14 Outpatient Pachie S. Pachie S. 972 84 [facility] 13:45:00 13:45:00 MD Chetan Benton MD l PLLC PLLC [place] 2014-06-11 2014-06-11 Unknown nullFlavo Pachie S. f36f84 1f-b [facility] 17:01:00 17:01:00 lindsey Benton MD 912-4b04-b l PLLC 2w0-yc32b2 [facility] nn 731464 9814-12-31 2014-06-11 Unknown nullFlavo Pachie S. 8z972j 0a-8 [facility] 17:01:00 17:01:00 lindsey Benton MD 2aa-4514-9 l PLLC 9p0-74e0jr [facility] nn 84f7e7 2014-06-11 2014-06-11 Unknown nullFlavo Pachie S. 50dc1d 78-5 [facility] 17:01:00 17:01:00 lindsey Benton MD a9f-6h07-g l PLLC a34-64g32o [facility] nn 2191d8 2014-06-11 2014-06-11 Unknown nullFlavo Pachie S. 3qc229 e4-c [facility] 17:01:00 17:01:00 lindsey Benton MD 0g0-63za-8 l PLLC 3df-971fb3 [facility] nn 4beb20 2014-06-11 2014-06-11 Unknown nullFlavo Pachie S. 5a6a3f 3a-1 [facility] 17:01:00 17:01:00 lindsey Benton MD bd4-4a45-8 l PLLC d7g-84h008 [facility] nn 4f4dcc 2014-06-11 2014-06-11 Unknown nullFlavo Pachie S. 6beabb 7a-a [facility] 17:01:00 17:01:00 lindsey Benton MD 8ef-431d-a l PLLC 4fe-011e91 [facility] nn 41accb 2014-06-11 2014-06-11 Unknown nullFlavo Pachie S. 43ccbb e0-1 [facility] 17:01:00 17:01:00 lindsey Benton MD i9c-8761-h l PLLC 3k2-4fl38f [facility] nn 651346 5176-12-31 2014-06-11 Unknown nullFlavo Pachie S. bb8271 17-3 [facility] 17:01:00 17:01:00 lindsey Benton MD l66-9fi8-9 l PLLC a05-830343 [facility] nn 2c6f0d 2014-06-11 2014-06-11 Unknown nullFlavo Pachie S. c05729 54-1 [facility] 17:01:00 17:01:00 lindsey Benton MD af3-4fb3-9 l PLLC aa8-mmp891 [facility] nn 269772 2376-12-31 2014-06-11 Unknown nullFlavo Pachie S. 764419 1f-3 [facility] 17:01:00 17:01:00 lindsey Benton MD 02a-4250-a l PLLC da4-36c56f [facility] nn 7oa568 2014-06-11 2014-06-11 Unknown nullFlavo Pachie S. 3g1542 19-1 [facility] 17:01:00 17:01:00 lindsey Benton MD 7dd-4639-9 l PLLC 691-9e0b02 [facility] nn dcbbee 2014-06-11 2014-06-11 Unknown nullFlavo Pachie S. 7c10f5 5a-2 [facility] 17:01:00 17:01:00 lindsey Benton MD afc-4e0a-b l PLLC 39a-1p107y [facility] nn f684f4 2014-06-11 2014-06-11 Unknown nullFlavo Pachie S. 55723z a7-f [facility] 17:01:00 17:01:00 lindsey Benton MD 479-4f8d-9 l PLLC 1v5-l30agc [facility] nn 0ay593 2014-06-11 2014-06-11 Unknown nullFlavo Pachie S. 3f5d8f be-a [facility] 16:01:00 16:01:00 lindsey Benton MD 50f-4e19-b l PLLC o73-b3xe49 [facility] nn 6p386b 2014-06-11 2014-06-11 Unknown nullFlavo Pachie S. 3ead0d bb-5 [facility] 16:01:00 16:01:00 lindsey Benton MD 4af-4261-b l PLLC 84e-269312 [facility] nn 998c2e 2014-06-11 2014-06-11 Unknown nullFlavo Pachie S. 7zw968 e0-a [facility] 16:01:00 16:01:00 lindsey Benton MD b5s-0xa3-3 l PLLC 1bb-d99e16 [facility] nn cd0f4b 2014-06-11 2014-06-11 Unknown nullFlavo Pachie S. 3w7359 97-2 [facility] 16:01:00 16:01:00 lindsey Benton MD eed-4452-9 l PLLC 333-97cca8 [facility] 4y2965 2014-06-11 2014-06-11 Unknown nullFlavo Pachie S. y59802 58-c [facility] 16:01:00 16:01:00 lindsey Benton MD 672-4959-8 l PLLC 33c-0c0c53 [facility] nn fe3211 2014-06-11 2014-06-11 Unknown nullFlavo Pachie S. 3a4fb1 6d-1 [facility] 16:01:00 16:01:00 lindsey Benton MD u08-6v4q-0 l PLLC 896-9525ee [facility] nn 7579a9 2014-06-11 2014-06-11 Unknown nullFlavo Pachie S. 2ccd57 17-4 [facility] 16:01:00 16:01:00 lindsey Benton MD j58-2s4f-4 l PLLC 9bf-18h374 [facility] 10617g 2014-06-11 2014-06-11 Unknown nullFlavo Pachie S. jme118 8b-9 [facility] 16:01:00 16:01:00 lindsey Benton MD 25e-4cac-8 l PLLC 9q9-l26s34 [facility] dfbdec 2014-06-11 2014-06-11 Outpatient Pachie S. Pachie S. 958 12 [facility] 11:01:00 11:01:00 MD Chetan Benton MD l PLLC PLLC [place] 2014-05-15 2014-05-15 Refill nullFlavo Pachie S. 4ba4fa 25-f [facility] 20:06:00 20:06:00 lindsey Benton MD x4c-380m-5 l PLLC o3r-75aeo5 [facility] nn 4608b5 2014-05-15 2014-05-15 Refill nullFlavo Pachie S. fa5009 61-e [facility] 20:06:00 20:06:00 ilndsey Benton MD 78a-4554-8 l PLLC 6da-4083ef [facility] nn fi6637 2014-05-15 2014-05-15 Refill nullFlavo Pachellen S. p3r622 63-c [facility] 20:06:00 20:06:00 lindsey Benton MD 006-42eb-b l PLLC cb6-daf0f1 [facility] nn a26e6d 2014-05-15 2014-05-15 Refill nullFlavo Pachie S. v2991g 87-2 [facility] 20:06:00 20:06:00 lindsey Benton MD 340-4708-8 l PLLC 9w3-54746v [facility] nn 3aaf4b 2014-05-15 2014-05-15 Refill nullFlavo Pachie S. 332af8 b2-b [facility] 20:06:00 20:06:00 lindsey Benton MD 84c-41a0-a l PLLC 774-32be3a [facility] nn 3m8148 2014-05-15 2014-05-15 Refill nullFlavo Pachie S. d63cd5 d1-f [facility] 20:06:00 20:06:00 lindsey Benton MD 9g1-35o5-1 l PLLC bd6-cb43da [facility] nn 475198 3836-12-04 2014-05-15 Refill nullFlavo Pachie S. 29s381 f1-1 [facility] 20:06:00 20:06:00 lindsey Benton MD g1j-7d2d-r l PLLC j58-w3765v [facility] nn 0769be 2014-05-15 2014-05-15 Refill nullFlavo Pachie S. 3b2dc8 d2-9 [facility] 20:06:00 20:06:00 lindsey Benton MD l10-5156-d l PLLC d6n-mh68rt [facility] nn j3e972 2014-05-15 2014-05-15 Refill nullFlavo Pachie S. ja598s c5-b [facility] 20:06:00 20:06:00 lindsey Benton MD 926-4a7c-8 l PLLC z89-8opq64 [facility] nn p71451 2014-05-15 2014-05-15 Refill nullFlavo Pachie S. e0070r 12-2 [facility] 20:06:00 20:06:00 lindsey Benton MD 398-41ff-a l PLLC ab6-pb4891 [facility] w0998l 2014-05-15 2014-05-15 Refill nullFlavo Pachie S. 08db28 d3-0 [facility] 20:06:00 20:06:00 lindsey Benton MD m83-64n5-9 l PLLC 691-vf7381 [facility] 74f0b8 2014-05-15 2014-05-15 Refill nullFlavo Pachie S. d03d1a 1b-9 [facility] 20:06:00 20:06:00 lindsey Benton MD 452-4a34-9 l PLLC 77e-gph330 [facility] 4z6623 2014-05-15 2014-05-15 Refill nullFlavo Pachie S. 762926 4f-f [facility] 20:06:00 20:06:00 lindsey Benton MD 9fd-4c69-b l PLLC w4e-702g72 [facility] 9265c0 2014-05-15 2014-05-15 Refill nullFlavo Pachie S. 5t1490 4e-9 [facility] 20:06:00 20:06:00 lindsey Benton MD z6m-3601-z l PLLC j79-2ya66o [facility] eecccc 2014-05-15 2014-05-15 Refill nullFlavo Pachie S. cafd91 a8-e [facility] 19:06:00 19:06:00 lindsey Benton MD 826-4056-8 l PLLC y14-1v27bg [facility] 2dbcef 2014-05-15 2014-05-15 Refill nullFlavo Pachie S. 0s1198 02-7 [facility] 19:06:00 19:06:00 lindsey Benton MD 282-4197-9 l PLLC x5k-ld8g4g [facility] 15ac37 2014-05-15 2014-05-15 Refill nullFlavo Pachie S. f700d0 9d-6 [facility] 19:06:00 19:06:00 lindsey Benton MD dc7-4586-b l PLLC t58-5j5564 [facility] fc8250 2014-05-15 2014-05-15 Refill nullFlavo Pachie S. dfe67e 19-a [facility] 19:06:00 19:06:00 lindsey Benton MD 2j5-5yn7-s l PLLC q81-ry2047 [facility] 4e6b6d 2014-05-15 2014-05-15 Refill nullFlavo Pachie S. 38abac 0b-4 [facility] 19:06:00 19:06:00 lindsey Benton MD 72d-4b4b-8 l PLLC t07-tp6l4u [facility] 5l963i 2014-05-15 2014-05-15 Refill nullFlavo Pachie S. 3ad8ce 6e-3 [facility] 19:06:00 19:06:00 lindsey Benton MD 6m0-0p85-8 l PLLC 40e-3482b4 [facility] 45h979 2014-05-15 2014-05-15 Refill nullFlavo Pachie S. fe1d00 ea-c [facility] 19:06:00 19:06:00 lindsey Benton MD s43-77ll-6 l PLLC ec7-ccff88 [facility] fb54c7 2014-05-15 2014-05-15 Refill nullFlavo Pachie S. accdbe 55-3 [facility] 19:06:00 19:06:00 lindsey Benton MD 559-482e-9 l PLLC 7aa-d12c8f [facility] 5de60b 2014-05-15 2014-05-15 Outpatient P[facility] S. Pachie S. 946 21 [facility] 14:06:00 14:06:00 MD Chetan Benton MD l PLLC PLLC [place] 2014-05-13 2014-05-13 Unknown nullFlavo Pachie S. 3s6816 4c-1 [facility] 15:06:00 15:06:00 lindsey Benton MD c7e-2eof-8 l PLLC e50-6xc0s1 [facility] 6ts431 2014-05-13 2014-05-13 Unknown nullFlavo Pachie S. 15ab09 62-4 [facility] 15:06:00 15:06:00 lindsey Benton MD 862-4b99-9 l PLLC 4k0-04654b [facility] 661dfd 2014-05-13 2014-05-13 Unknown nullFlavo Pachie S. a619a7 75-e [facility] 15:06:00 15:06:00 lindsey Benton MD 11e-4503-8 l PLLC 538-v38038 [facility] nn f2b0cd 2014-05-13 2014-05-13 Unknown nullFlavo Pachie S. 01z293 da-c [facility] 15:06:00 15:06:00 lindsey Benton MD 7af-4cd3-9 l PLLC ae4-70bc3c [facility] nn 9b397y 2014-05-13 2014-05-13 Unknown nullFlavo Pachie S. 044805 67-e [facility] 15:06:00 15:06:00 lindsey Benton MD 36d-481f-8 l PLLC ddf-619214 [facility] nn 76b3b9 2014-05-13 2014-05-13 Unknown nullFlavo Pachie S. 35d6ad 4a-6 [facility] 15:06:00 15:06:00 lindsey Benton MD bc7-4a71-8 l PLLC e25-40nc5b [facility] nn 6ecabf 2014-05-13 2014-05-13 Unknown nullFlavo Pachie S. 4534f0 42-b [facility] 15:06:00 15:06:00 lindsey Benton MD 0e2-44fj-p l PLLC abc-5bb3d9 [facility] nn e99ff8 2014-05-13 2014-05-13 Unknown nullFlavo Pachie S. 0dff27 04-3 [facility] 15:06:00 15:06:00 lindsey Benton MD 65d-4219-b l PLLC 934-43bb5d [facility] nn 255494 2947-12-02 2014-05-13 Unknown nullFlavo Pachie S. 2d04f2 80-3 [facility] 15:06:00 15:06:00 lindsey Benton MD 4v6-696q-s l PLLC 396-887539 [facility] nn 5e785r 2014-05-13 2014-05-13 Unknown nullFlavo Pachie S. 07e424 05-f [facility] 15:06:00 15:06:00 lindsey Benotn MD a7h-7qr4-v l PLLC 575-04c0aa [facility] nn 4505d4 2014-05-13 2014-05-13 Unknown nullFlavo Pachie S. 5cd9c3 0a-4 [facility] 15:06:00 15:06:00 lindsey Benton MD dd9-4966-9 l PLLC 5ba-if6311 [facility] nn 0c76af 2014-05-13 2014-05-13 Unknown nullFlavo Pachie S. 9e27fa e6-2 [facility] 15:06:00 15:06:00 lindsey Benton MD p44-92f5-d l PLLC 960-979959 [facility] nn 075740 4267-12-02 2014-05-13 Unknown nullFlavo Pachie S. 24488r e8-3 [facility] 15:06:00 15:06:00 lindsey Benton MD 2u9-2ysu-9 l PLLC 94b-6n824m [facility] nn 7d91e3 2014-05-13 2014-05-13 Unknown nullFlavo Pachie S. 523155 84-f [facility] 15:06:00 15:06:00 lindsey Benton MD bef-42ed-b l PLLC 6o0-m76f35 [place] nn 9c48f3 2014-05-13 2014-05-13 Unknown nullFlavo Pachie S. i7k700 28-2 [facility] 15:06:00 15:06:00 lindsey Benton MD 009-447f-b l PLLC 515-9180ba [place] nn 8474d5 2014-05-13 2014-05-13 Unknown nullFlavo Pachie S. daf29f 57-6 [facility] 14:06:00 14:06:00 lindsey Benton MD 25e-4813-8 l PLLC x6y-zeuf86 [place]assy nn [id number] 5442-12-02 2014-05-13 Unknown nullFlavo Pachie S. 11319t 9a-5 [facility] 14:06:00 14:06:00 lindsey Benton MD cad-40db-b l PLLC r5j-6hap6w [place] nn f31b8c 2014-05-13 2014-05-13 Unknown nullFlavo Pachie S. 41cf18 22-c [facility] 14:06:00 14:06:00 lindsey Benton MD 2ff-4e55-8 l PLLC 49d-9c351x [facility] nn d8f5de 2014-05-13 2014-05-13 Unknown nullFlavo Pachie S. 6df3d0 cc-b [facility] 14:06:00 14:06:00 lindsey Benton MD fd6-451f-9 l PLLC 451-6e8c17 [facility] nn cbaf4f 2014-05-13 2014-05-13 Unknown nullFlavo Pachie S. 9wv033 af-8 [facility] 14:06:00 14:06:00 lindsey Benton MD bed-4175-9 l PLLC 1y1-r6t15i [facility] vfx002 2014-05-13 2014-05-13 Unknown nullFlavo Pachie S. b6d6ab 5e-c [facility] 14:06:00 14:06:00 lindsey Benton MD 66c-4e57-b l PLLC bf9-aed0af [facility] nn f13e66 2014-05-13 2014-05-13 Unknown nullFlavo Pachie S. e4d40c 31-a [facility] 14:06:00 14:06:00 lindsey Benton MD 0aa-48fc-9 l PLLC j38-1u2ww9 [facility] nn 5d2b55 2014-05-13 2014-05-13 Unknown nullFlavo Pachie S. 5108ca ef-b [facility] 14:06:00 14:06:00 lindsey Benton MD 5s5-5p91-a l PLLC 8p5-11950k [facility] 7mq143 2014-05-13 2014-05-13 Outpatient Pachie S. Pachie S. 944 26 Memoria 09:06:00 09:06:00 MD Chetan Benton MD l PLLC PLLC [place] 2014-04-08 2014-04-08 Unknown nullFlavo Pachie S. f8fc42 76-5 [facility] 17:44:00 17:44:00 lindsey Benton MD 756-409d-9 l PLLC 73f-cdf3ae [facility] 5bb4f1 2014-04-08 2014-04-08 Unknown nullFlavo Pachie S. 1e1378 9b-2 [facility] 17:44:00 17:44:00 lindsey Benton MD 7bc-44cf-9 l PLLC w3e-18d5o4 [place] nn 1462c7 2014-04-08 2014-04-08 Unknown nullFlavo Pachie S. 4e0fc1 4c-0 [facility] 17:44:00 17:44:00 lindsey Benton MD 681-4801-a l PLLC b2p-j96qg9 [place] nn 9uj819 2014-04-08 2014-04-08 Unknown nullFlavo Pachie S. 111315 c3-2 [facility] 17:44:00 17:44:00 lindsey Benton MD ded-4c04-b l PLLC 160-4d1e63 [place] nn 0620b3 2014-04-08 2014-04-08 Unknown nullFlavo Pachie S. c33d51 23-0 [facility] 17:44:00 17:44:00 lindsey Benton MD 39d-46d7-9 l PLLC [place]-13b70b [place] nn f53bc3 2014-04-08 2014-04-08 Unknown nullFlavo Pachie S. 2955f1 aa-0 [facility] 17:44:00 17:44:00 lindsey Benton MD 1cb-480b-8 l PLLC 368-bac5bd [place] nn 197d28 2014-04-08 2014-04-08 Unknown nullFlavo Pachie S. ae48d4 11-e [facility] 17:44:00 17:44:00 lindsey Benton MD 6n0-600b-x l PLLC fa2-b0eccf [place] nn 9addd8 2014-04-08 2014-04-08 Unknown nullFlavo Pachie S. 266ea7 ed-2 [facility] 17:44:00 17:44:00 lindsey Benton MD 94a-40ee-a l PLLC 019-3qx000 [place] nn q1973r 2014-04-08 2014-04-08 Unknown nullFlavo Pachie S. 1872b2 4c-e [facility] 17:44:00 17:44:00 lindsey Benton MD 6p5-7039-q l PLLC 68b-22t731 [place] nn 2bd6fd 2014-04-08 2014-04-08 Unknown nullFlavo Pachie S. 7a2b17 eb-a [facility] 17:44:00 17:44:00 lindsey Benton MD i7l-9p3w-i l PLLC 59d-6572d1 [place] nn a5f3e8 2014-04-08 2014-04-08 Unknown nullFlavo Pachie S. 454014 d2-9 [facility] 17:44:00 17:44:00 lindsey Benton MD fa1-4f83-8 l PLLC 3l8-11zp8g [place] nn 26g092 2014-04-08 2014-04-08 Unknown nullFlavo Pachie S. 1551e0 3f-a [facility] 17:44:00 17:44:00 lindsey Benton MD 128-496a-9 l PLLC 433-bc1f47 [place] nn bbd0f3 2014-04-08 2014-04-08 Unknown nullFlavo Pachie S. q09935 3b-c [facility] 17:44:00 17:44:00 lindsey Benton MD 58b-47b4-b l PLLC 7p7-1hb232 [place] nn ccb5c5 2014-04-08 2014-04-08 Unknown nullFlavo Pachie S. 5037d9 40-1 [facility] 17:44:00 17:44:00 lindsey Benton MD 7x6-9121-e l PLLC 8a1-xpaq63 [place] nn e25f7c 2014-04-08 2014-04-08 Unknown nullFlavo Pachie S. e970af c5-b [facility] 17:44:00 17:44:00 lindsey Benton MD edb-4835-9 l PLLC 4ee-3d72eb [place] nn 6a6c76 2014-04-08 2014-04-08 Unknown nullFlavo Pachie S. 56db87 1f-5 [facility] 17:44:00 17:44:00 lindsey Benton MD q20-649i-z l PLLC 840-f0be02 [place] nn 701d41 2014-04-08 2014-04-08 Unknown nullFlavo Pachie S. 6cefb8 d4-f [facility] 16:44:00 16:44:00 lindsey Benton MD faf-4051-8 l PLLC ab1-891528 [place] nn ef060b 2014-04-08 2014-04-08 Unknown nullFlavo Pachie S. f00a78 30-0 [facility] 16:44:00 16:44:00 lindsey Benton MD fda-4bc1-a l PLLC 6m6-52m04i [facility] nn f81f96 2014-04-08 2014-04-08 Unknown nullFlavo Pachie S. d294e9 7f-4 [facility] 16:44:00 16:44:00 lindsey Benton MD 582-4903-9 l PLLC 5f1-sh9174 [place] nn 38fcea 2014-04-08 2014-04-08 Unknown nullFlavo Pachie S. bb2cfd e6-8 [facility] 16:44:00 16:44:00 lindsey Benton MD j4o-5rk2-1 l PLLC 3y0-004956 [facility] nn 450e9a 2014-04-08 2014-04-08 Unknown nullFlavo Pachie S. 5f7b35 73-c [facility] 16:44:00 16:44:00 lindsey Benton MD e99-54el-5 l PLLC 793-7d58c8 [facility] nn ad62b8 2014-04-08 2014-04-08 Unknown nullFlavo Pachie S. 19ee51 bc-6 [facility] 16:44:00 16:44:00 lindsey Benton MD 87f-41f0-8 l PLLC t98-287t91 [facility] nn 6466e5 2014-04-08 2014-04-08 Unknown nullFlavo Pachie S. 1m3055 02-e [facility] 16:44:00 16:44:00 lindsey Benton MD 4fd-40fa-a l PLLC ff0-t4d187 [facility] nn 6a3e38 2014-04-08 2014-04-08 Unknown nullFlavo Pachie S. sw4151 7c-0 [facility] 16:44:00 16:44:00 lindsey Benton MD 854-4897-9 l PLLC 3ed-2e1388 [facility] nn a2b13a 2014-04-08 2014-04-08 Outpatient Pachie S. Pachie S. 927 32 [facility] 11:44:00 11:44:00 MD Chetan Benton MD l PLLC PLLC [place] 2014-03-17 2014-03-17 meds nullFlavo Pachie S. 3ceae1 a0-b [facility] 14:45:00 14:45:00 lindsey Benton MD p49-2162-x l PLLC ae4-0edc0e [place] [facility] b832dd 2014-03-17 2014-03-17 meds nullFlavo Pachie S. 641b40 df-a Memoria 14:45:00 14:45:00 lindsey Benton MD 5af-418b-8 l PLLC 000-s81788 [facility] nn 3e2f55 2014-03-17 2014-03-17 meds nullFlavo Pachie S. f24060 e5-5 Memoria 14:45:00 14:45:00 lindsey Benton MD 45f-4afe-b l PLLC afd-4bcfb4 [facility] nn r2l430 2014-03-17 2014-03-17 meds nullFlavo Pachie S. 157a20 cb-f Memoria 14:45:00 14:45:00 lindsey Benton MD 495-4d1b-8 l PLLC 5be-4352bb [facility] cf7c0b 2014-03-17 2014-03-17 meds nullFlavo Pachie S. aa19da ab-b Memoria 14:45:00 14:45:00 lindsey Benton MD u96-20f1-k l PLLC 294-f13c47 [facility] nn 109539 0822-10-06 2014-03-17 meds nullFlavo Pachie S. 10352b ee-2 Memoria 14:45:00 14:45:00 lindsey Benton MD 35c-439e-9 l PLLC 683-6cc3f0 [facility] nn 959730 7525-10-06 2014-03-17 meds nullFlavo Pachie S. edf4cc 6a-7 Memoria 14:45:00 14:45:00 lindsey Benton MD n3q-336i-g l PLLC 955-1ls138 [facility] nn [id number] 3933-10-06 2014-03-17 meds nullFlavo Pachie S. dfc15a 5c-a [facility]oria 14:45:00 14:45:00 lindsey Benton MD ebf-4a86-b l PLLC 115-39t747 [facility] 5iy482 2014-03-17 2014-03-17 meds nullFlavo Pachie S. e54e76 7e-9 Memoria 14:45:00 14:45:00 lindsey Benton MD 302-4c00-8 l PLLC cd7-0439af [facility] nn 850d2d 2014-03-17 2014-03-17 meds nullFlavo Pachie S. 2420e0 bb-5 [facility]oria 14:45:00 14:45:00 lindsey Benton MD i24-77ui-k l PLLC 9g0-9f4l41 [facility] nn 6ddd1d 2014-03-17 2014-03-17 meds nullFlavo Pachie S. nde626 1c-f Memoria 14:45:00 14:45:00 lindsey Benton MD af7-4542-8 l PLLC 8ff-b66f50 [facility] nn 22ae67 2014-03-17 2014-03-17 meds nullFlavo Pachie S. 3ca56d 12-e [facility] 14:45:00 14:45:00 lindsey Benton MD dbf-4a67-8 l PLLC fb6-fcaa5f [facility] nn ecbd63 2014-03-17 2014-03-17 meds nullFlavo Pachie S. aaa52c a0-b [facility] 14:45:00 14:45:00 lindsey Benton MD l6z-1804-3 l PLLC p38-53he72 [facility] nn 46d6a8 2014-03-17 2014-03-17 meds nullFlavo Pachie S. affc0c d8-e [facility]oria 14:45:00 14:45:00 lindsey Benton MD caa-4893-a l PLLC 04b-ea3b78 [facility] nn 5h5542 2014-03-17 2014-03-17 meds nullFlavo Pachie S. f19aaf 35-0 [facility]oria 14:45:00 14:45:00 lindsey Benton MD 6w8-5456-u l PLLC ef8-1ded72 [facility] nn f598b0 2014-03-17 2014-03-17 meds nullFlavo Pachie S. 1a6856 e1-5 Memoria 14:45:00 14:45:00 lindsey Benton MD 4k5-89l8-2 l PLLC p89-5niu23 [facility] nn 76m998 2014-03-17 2014-03-17 meds nullFlavo Pachie S. 9q0638 1c-0 [facility]oria 13:45:00 13:45:00 lindsey Benton MD y1s-5w6m-8 l PLLC 68f-45cb76 [facility] nn fd02f5 2014-03-17 2014-03-17 meds nullFlavo Pachie S. f0a3fc f3-9 [facility]oria 13:45:00 13:45:00 lindsey Benton MD 70d-4705-9 l PLLC e0f-18470r [facility] nn 944fa4 2014-03-17 2014-03-17 meds nullFlavo Pachie S. 16eba1 44-2 Memoria 13:45:00 13:45:00 lindsey Benton MD 572-49c6-a l PLLC v82-22b1qk [facility] nn s00726 2014-03-17 2014-03-17 meds nullFlavo Pachie S. c584c5 1c-0 Memoria 13:45:00 13:45:00 lindsey Benton MD 04c-4c8a-a l PLLC k73-kk2433 [facility] nn 787b79 2014-03-17 2014-03-17 meds nullFlavo Pachie S. b224ff 45-5 Memoria 13:45:00 13:45:00 lindsey Benton MD 0t7-598c-p l PLLC 068-bq417p [facility] nn 50cb95 2014-03-17 2014-03-17 meds nullFlavo Pachie S. 754e2d a2-0 Memoria 13:45:00 13:45:00 lindsey Benton MD ec0-4580-b l PLLC 1i9-37a5e4 [facility] nn fde8a1 2014-03-17 2014-03-17 meds nullFlavo Pachie S. 9816b5 44-2 Memoria 13:45:00 13:45:00 lindsey Benton MD 79c-4b33-8 l PLLC 6be-d81ebf [facility] nn pv2322 2014-03-17 2014-03-17 meds nullFlavo Pachie S. 1973fa 3c-8 Memoria 13:45:00 13:45:00 lindsey Benton MD 3df-4613-a l PLLC 8a4-2c66hd [facility] nn 7007c8 2014-03-17 2014-03-17 meds nullFlavo Pachie S. f73dee 16-a [facility] 13:45:00 13:45:00 lindsey Benton MD 129-4ea0-b l PLLC o5q-pogy58 [facility] nn acf6df 2014-03-17 2014-03-17 meds nullFlavo Pachie S. 8j5356 35-1 [facility] 13:45:00 13:45:00 lindsey Benton MD a7p-0x34-7 l PLLC ddd-cfe3af [facility] nn dd7cd9 2014-03-17 2014-03-17 Outpatient Pachie S. Pachie S. 916 09 Memoria 08:45:00 08:45:00 MD Chetan Benton MD l PLLC PLLC [place] 2014-03-06 2014-03-06 Unknown nullFlavo Pachie S. b23d42 a6-8 Memoria 16:14:00 16:14:00 lindsey Benton MD 92c-4301-8 l PLLC 092-b450ed [facility] nn 66b22b 2014-03-06 2014-03-06 Unknown nullFlavo Pachie S. f48f9d c5-c [facility]oria 16:14:00 16:14:00 lindsey Benton MD 9af-4b4b-8 l PLLC k3y-873bf6 [facility] nn c49a9d 2014-03-06 2014-03-06 Unknown nullFlavo Pachie S. 5w3391 c3-8 Memoria 16:14:00 16:14:00 lindsey Benton MD 2dc-4ce2-8 l PLLC 2r8-0ur975 [facility] nn 4924be 2014-03-06 2014-03-06 Unknown nullFlavo Pachie S. e1ee58 62-b [facility] 16:14:00 16:14:00 lindsey Benton MD 767-42f6-b l PLLC x22-18jg5b [facility] nn 09488c 2014-03-06 2014-03-06 Unknown nullFlavo Pachie S. e1edea af-3 [facility] 16:14:00 16:14:00 lindsey Benton MD 872-4d7b-a l PLLC 6dd-252771 [facility] nn f91c57 2014-03-06 2014-03-06 Unknown nullFlavo Pachie S. 0682c4 28-0 [facility]oria 16:14:00 16:14:00 lindsey Benton MD 1y9-140h-a l PLLC d96-8j85y9 [facility] nn b382e5 2014-03-06 2014-03-06 Unknown nullFlavo Pachie S. b25aeb 7d-8 Memoria 16:14:00 16:14:00 lindsey Benton MD 95c-49cc-8 l PLLC 2j6-0184he [facility] nn g13113 2014-03-06 2014-03-06 Unknown nullFlavo Pachie S. 52c3bc 91-d [facility] 16:14:00 16:14:00 lindsey Benton MD 7p8-8e82-8 l PLLC bbd-a6eb72 [facility] nn c9d8e8 2014-03-06 2014-03-06 Unknown nullFlavo Pachie S. v81536 01-8 [facility]oria 16:14:00 16:14:00 lindsey Benton MD u3w-353c-k l PLLC 13a-9y5015 [facility] nn 6825f3 2014-03-06 2014-03-06 Unknown nullFlavo Pachie S. 65t557 8c-a [facility]oria 16:14:00 16:14:00 lindsey Benton MD c82-5a9w-x l PLLC 5b9-35137y [facility] nn q73934 2014-03-06 2014-03-06 Unknown nullFlavo Pachie S. 751845 9b-d Memoria 16:14:00 16:14:00 lindsey Betnon MD fb8-4bbe-8 l PLLC t1s-584425 [facility] nn 9y5644 2014-03-06 2014-03-06 Unknown nullFlavo Pachie S. 4a6fbc 08-5 [facility]oria 16:14:00 16:14:00 lindsey Benton MD m48-90nj-0 l PLLC cca-572bde [facility] nn fc1c81 2014-03-06 2014-03-06 Unknown nullFlavo Pachie S. n56418 1f-7 [facility]oria 16:14:00 16:14:00 lindsey Benton MD 4eb-4d39-a l PLLC h11-5ov1eg [facility] nn a80bd3 2014-03-06 2014-03-06 Unknown nullFlavo Pachie S. vy2942 36-8 Memoria 16:14:00 16:14:00 lindsey Benton MD 972-429a-8 l PLLC 2ab-133163 [facility] nn c85213 2014-03-06 2014-03-06 Unknown nullFlavo Pachie S. 925b8a 70-f [facility] 16:14:00 16:14:00 lindsey Benton MD fed-4a69-8 l PLLC 8u5-78kr62 [facility] nn yye178 2014-03-06 2014-03-06 Unknown nullFlavo Pachie S. gc5546 56-c [facility] 16:14:00 16:14:00 lindsey Benton MD v2t-9p12-g l PLLC 786-a30a40 [facility] nn 6d30c5 2014-03-06 2014-03-06 Unknown nullFlavo Pachie S. 26cb87 35-5 [facility]oria 15:14:00 15:14:00 lindsey Benton MD af6-4104-8 l PLLC u6i-c56s2u [facility] nn 8f4ee9 2014-03-06 2014-03-06 Unknown nullFlavo Pachie S. 6aa83d f8-6 [facility] 15:14:00 15:14:00 lindsey Benton MD y69-40kh-m l PLLC 744-bfbd46 [facility] nn l4s401 2014-03-06 2014-03-06 Unknown nullFlavo Pachie S. 8n761r 56-3 [facility] 15:14:00 15:14:00 lindsey Benton MD 022-44d3-a l PLLC 6h5-i5vk16 [facility] nn 874eef 2014-03-06 2014-03-06 Unknown nullFlavo Pachie S. vu883y a7-5 [facility] 15:14:00 15:14:00 lindsey Benton MD 499-4637-b l PLLC 24d-3f1a80 [facility] nn 05a73f 2014-03-06 2014-03-06 Unknown nullFlavo Pachie S. fea5dc da-e [facility] 15:14:00 15:14:00 lindsey Benton MD 970-4d90-a l PLLC d30-860sd7 [facility] nn 2fcf69 2014-03-06 2014-03-06 Unknown nullFlavo Pachie S. 68d6ac cd-0 Memoria 15:14:00 15:14:00 lindsey Benton MD s74-1xmj-z l PLLC 80f-7effe6 [facility] ax8957 2014-03-06 2014-03-06 Unknown nullFlavo Pachie S. ac34d9 1e-6 Memoria 15:14:00 15:14:00 lindsey Benton MD 142-4951-b l PLLC 4ec-7326b7 [facility] bht350 2014-03-06 2014-03-06 Unknown nullFlavo Pachie S. cb33b6 80-5 Memoria 15:14:00 15:14:00 lindsey Benton MD bfd-45d4-a l PLLC 8cd-1a7594 [facility] x33439 2014-03-06 2014-03-06 Unknown nullFlavo Pachie S. 842d69 6b-5 Memoria 15:14:00 15:14:00 lindsey Benton MD 1u8-29lg-0 l PLLC s3s-3z1n85 [facility] jtm509 2014-03-06 2014-03-06 Unknown nullFlavo Pachie S. d9e9a8 f5-d Memoria 15:14:00 15:14:00 lindsey Benton MD 0t2-68d2-s l PLLC 35e-7kf940 [facility] e628a5 2014-03-06 2014-03-06 Outpatient Pachie S. Pachie S. 911 21 Memoria 10:14:00 10:14:00 MD Chetan Benton MD l PLLC PLLC [place] 2014-02-12 2014-02-12 DRY SOCKET nullFlavo Pachie S. 30f u328v-0 Memoria 14:45:00 14:45:00 lindsey Benton MD 036-43ad-8 l PLLC bfe-60098x [facility] 44516p 2014-02-12 2014-02-12 DRY SOCKET nullFlavo Pachie S. 140 cce06-7 Memoria 14:45:00 14:45:00 lindsey Benton MD 532-4b6f-9 l PLLC 215-72a25a [facility] 8945cc 2014-02-12 2014-02-12 DRY SOCKET nullFlavo Pachie S. 968 ap4u5-z Memoria 14:45:00 14:45:00 lindsey Benton MD bfc-4bd8-b l PLLC x06-378055 [facility] nn mc266x 2014-02-12 2014-02-12 DRY SOCKET nullFlavo Pachie S. e86 66396-1 Memoria 14:45:00 14:45:00 lindsey Benton MD m23-25od-7 l PLLC m52-dqc4gl [facility] nn 8918ce 2014-02-12 2014-02-12 DRY SOCKET nullFlavo Pachie S. 442 n8uu2-0 Memoria 14:45:00 14:45:00 lindsey Benton MD l49-93gn-p l PLLC a21-on6833 [facility] nn 55b1e4 2014-02-12 2014-02-12 DRY SOCKET nullFlavo Pachie S. daf x45y7-k Memoria 14:45:00 14:45:00 lindsey Benton MD i5k-886j-h l PLLC 442-ae51d6 [facility] nn 0ff1f6 2014-02-12 2014-02-12 DRY SOCKET nullFlavo Pachie S. a53 27f9o-3 Memoria 14:45:00 14:45:00 lindsey Benton MD 708-4af6-a l PLLC bf8-5sj980 [facility] nn 897e30 2014-02-12 2014-02-12 DRY SOCKET nullFlavo Pachie S. 1bc e8s28-7 Memoria 14:45:00 14:45:00 lindsey Benton MD 4h1-320j-o l PLLC y38-613q33 [facility] nn 09ea6d 2014-02-12 2014-02-12 DRY SOCKET nullFlavo Pachie S. 42c k41zn-0 Memoria 14:45:00 14:45:00 lindsey Benton MD 72e-4441-9 l PLLC 067-c868f9 [facility] nn 0e62f1 2014-02-12 2014-02-12 DRY SOCKET nullFlavo Pachie S. 05d 8187e-1 Memoria 14:45:00 14:45:00 lindsey Benton MD 0s4-8341-f l PLLC 03c-p1m068 [facility] nn 740a48 2014-02-12 2014-02-12 DRY SOCKET nullFlavo Pachie S. 386 05804-l Memoria 14:45:00 14:45:00 lindsey Benton MD 76a-4497-8 l PLLC 884-316beb [facility] d64d33 2014-02-12 2014-02-12 DRY SOCKET nullFlavo Pachie S. a18 g5695-7 Memoria 14:45:00 14:45:00 lindsey Benton MD 14e-4490-b l PLLC 77b-967d48 [facility] 66da54 2014-02-12 2014-02-12 DRY SOCKET nullFlavo Pachie S. d75 4i857-5 Memoria 14:45:00 14:45:00 lindsey Benton MD 554-4ecf-9 l PLLC t02-j766wm [facility] 281558 6080-09-03 2014-02-12 DRY SOCKET nullFlavo Pachie S. f38 731bc-e Memoria 14:45:00 14:45:00 lindsey Benton MD ea5-4753-a l PLLC 38a-abfe4a [facility] 3de9f2 2014-02-12 2014-02-12 DRY SOCKET nullFlavo Pachie S. d2b 5u1p8-c Memoria 14:45:00 14:45:00 lindsey Benton MD d4h-6886-7 l PLLC 3a7-31h92t [facility] c6f2b5 2014-02-12 2014-02-12 DRY SOCKET nullFlavo Pachie S. d21 36e5m-x Memoria 14:45:00 14:45:00 lindsey Benton MD 7be-4d21-a l PLLC 796-055983 [facility] a51893 2014-02-12 2014-02-12 DRY SOCKET nullFlavo Pachie S. 0a8 dc373-1 Memoria 13:45:00 13:45:00 lindsey Benton MD 449-4a3a-a l PLLC 799-b7e6a9 [facility] 9o315l 2014-02-12 2014-02-12 DRY SOCKET nullFlavo Pachie S. f54 0n559-1 Memoria 13:45:00 13:45:00 lindsey Benton MD 984-439b-8 l PLLC r58-u4p83s [facility] nn 6ed3eb 2014-02-12 2014-02-12 DRY SOCKET nullFlavo Pachie S. f8c 629de-4 Memoria 13:45:00 13:45:00 lindsey Benton MD 187-4396-8 l PLLC b23-49z1ym [facility] nn 965d1f 2014-02-12 2014-02-12 DRY SOCKET nullFlavo Pachie S. 09c 03241-1 Memoria 13:45:00 13:45:00 lindsey Benton MD 6c4-9nis-8 l PLLC 8ab-612b39 [facility] nn 8acefd 2014-02-12 2014-02-12 DRY SOCKET nullFlavo Pachie S. c31 q58ze-5 Memoria 13:45:00 13:45:00 lindsey Benton MD cb2-4271-8 l PLLC eb3-bm4387 [facility] nn af07de 2014-02-12 2014-02-12 DRY SOCKET nullFlavo Pachie S. 3b8 nv3yh-3 Memoria 13:45:00 13:45:00 lindsey Benton MD 940-4b65-a l PLLC ded-4bbdd8 [facility] 6571db 2014-02-12 2014-02-12 DRY SOCKET nullFlavo Pachie S. 437 22254-k Memoria 13:45:00 13:45:00 lindsey Benton MD w3q-96m5-7 l PLLC 31d-y0380w [facility] a3a8e6 2014-02-12 2014-02-12 DRY SOCKET nullFlavo Pachie S. 0c5 f38i4-7 Memoria 13:45:00 13:45:00 lindsey Benton MD 3cf-4720-a l PLLC 63d-35beb3 [facility] nn 781c50 2014-02-12 2014-02-12 DRY SOCKET nullFlavo Pachie S. 1c3 8w6v5-8 Memoria 13:45:00 13:45:00 lindsey Benton MD o4k-0t13-w l PLLC u50-ws4927 [facility] fkz217 2014-02-12 2014-02-12 DRY SOCKET nullFlavo Pachie S. f7f 89r65-2 Memoria 13:45:00 13:45:00 lindsey Benton MD v7l-257h-x l PLLC b9p-33225g [facility] i2a504 2014-02-12 2014-02-12 DRY SOCKET nullFlavo Pachie S. ba4 ca030-u [facility] 13:45:00 13:45:00 lindsey Benton MD 211-41d7-b l PLLC aff-hy8788 [facility] nn 0ede18 2014-02-12 2014-02-12 DRY SOCKET nullFlavo Pachie S. 865 ug87j-5 Mem[facility] 13:45:00 13:45:00 lindsey Benton MD 322-4ec7-a l PLLC m0m-807628 [facility] eeedd1 2014-02-12 2014-02-12 DRY SOCKET nullFlavo Pachie S. cc2 37649-e Memoria 13:45:00 13:45:00 lindsey Benton MD 55d-4137-8 l PLLC rebecca-07afc1 [facility] 8t8095 2014-02-12 2014-02-12 DRY SOCKET nullFlavo Pachie S. cb9 2su71-6 [facility] 13:45:00 13:45:00 lindsey Benton MD 3b7-0q90-l l PLLC m4n-0m1p82 [facility] 68y962 2014-02-12 2014-02-12 DRY SOCKET nullFlavo Pachie S. cf5 2344a-7 Memoria 13:45:00 13:45:00 lindsey Benton MD 0m8-30w7-7 l PLLC 0ed-w9173w [facility] 67db0e 2014-02-12 2014-02-12 Outpatient [facility]. P[facility]ie S. 901 39 [facility] 08:45:00 08:45:00 MD Chetan Benton MD l PLLC PLLC [place] 2014-02-07 2014-02-07 Unknown nullFlavo Pachie S. f138f0 ef-c [facility] 15:08:00 15:08:00 lindsey Benton MD 8l0-9817-h l PLLC 95a-6bf2d4 [facility] d4b1c0 2014-02-07 2014-02-07 Unknown nullFlavo Pachie S. 040c89 dc-b [facility] 15:08:00 15:08:00 lindsey Benton MD g55-24ym-l l PLLC 39e-e48baf [facility] nn c48037 2014-02-07 2014-02-07 Unknown nullFlavo Pachie S. 19d47a e3-8 [facility] 15:08:00 15:08:00 lindsey Benton MD o0u-1ful-c l PLLC 6b9-91i32b [facility] nn 4sd809 2014-02-07 2014-02-07 Unknown nullFlavo Pachie S. e1f4a6 86-5 [facility] 15:08:00 15:08:00 lindsey Benton MD 3j1-44r4-5 l PLLC 30a-2772b6 [facility] nn 677377 9091-08-29 2014-02-07 Unknown nullFlavo Pachie S. 3a47f2 58-7 [facility] 15:08:00 15:08:00 lindsey Benton MD 3eb-479c-b l PLLC fff-4390e3 [facility] nn 05o825 2014-02-07 2014-02-07 Unknown nullFlavo Pachie S. w4m472 41-6 [facility] 15:08:00 15:08:00 lindsey Benton MD 1r8-997v-f l PLLC 80e-8041ef [facility] nn 5d2be9 2014-02-07 2014-02-07 Unknown nullFlavo Pachie S. db0db6 ca-1 [facility] 15:08:00 15:08:00 lindsey Benton MD 47f-404d-9 l PLLC 3cd-7e2eb2 [facility] nn 81271r 2014-02-07 2014-02-07 Unknown nullFlavo Pachie S. jw4044 3c-c [facility] 15:08:00 15:08:00 lindsey Benton MD g5v-8t3y-q l PLLC 01c-663cc9 [facility] nn d42eb8 2014-02-07 2014-02-07 Unknown nullFlavo Pachie S. 6154c5 6d-f [facility]oria 15:08:00 15:08:00 lindsey Benton MD 3e0-0675-a l PLLC i94-4e19w9 [facility] nn g3127e 2014-02-07 2014-02-07 Unknown nullFlavo Pachie S. f643e0 7d-4 Memoria 15:08:00 15:08:00 lindsey Benton MD y68-787q-z l PLLC 4n6-s88034 [facility] nn e2972o 2014-02-07 2014-02-07 Unknown nullFlavo Pachie S. c26e03 17-c [facility] 15:08:00 15:08:00 lindsey Benton MD 435-4952-9 l PLLC 0a4-ce1n9x [facility] nn 806bf6 2014-02-07 2014-02-07 Unknown nullFlavo Pachie S. 0sz884 ab-f [facility] 15:08:00 15:08:00 lindsey Benton MD fdf-448e-8 l PLLC x28-721l9d [facility] nn 67613y 2014-02-07 2014-02-07 Unknown nullFlavo Pachie S. 718da1 b8-b [facility] 15:08:00 15:08:00 lindsey Benton MD ffb-4c21-a l PLLC dd5-59eb7d [facility] nn n2580n 2014-02-07 2014-02-07 Unknown nullFlavo Pachie S. ac4f0f af-a [facility] 15:08:00 15:08:00 lindsey Benton MD 187-43cf-b l PLLC v0z-28m12l [facility] nn c688be 2014-02-07 2014-02-07 Unknown nullFlavo Pachie S. y8p255 27-8 [facility] 15:08:00 15:08:00 lindsey Benton MD 82b-487c-a l PLLC 460-c2ad56 [facility] nn 890c87 2014-02-07 2014-02-07 Unknown nullFlavo Pachie S. 4d42fd 0b-e [facility] 15:08:00 15:08:00 lindsey Benton MD f80-3290-4 l PLLC 4j7-7ox5vx [facility] nn 39i339 2014-02-07 2014-02-07 Unknown nullFlavo Pachie S. 4dd4b4 bb-8 [facility] 14:08:00 14:08:00 lindsey Benton MD 592-44b2-a l PLLC ed0-41u117 [facility] nn 74bd2a 2014-02-07 2014-02-07 Unknown nullFlavo Pachie S. 506026 ea-3 [facility] 14:08:00 14:08:00 lindsey Benton MD fad-4b6e-9 l PLLC 486-8145c1 [facility] 9eb1c5 2014-02-07 2014-02-07 Unknown nullFlavo Pachie S. 5e8110 46-4 [facility] 14:08:00 14:08:00 lindsey Benton MD q83-92o0-m l PLLC a13-9nm483 [facility] nn 2014-02-07 2014-02-07 Unknown nullFlavo Pachie S. 492935 b4-4 [facility] 14:08:00 14:08:00 lindsey Benton MD 5t7-3545-9 l PLLC 081-df7a4e [facility] 41b49a 2014-02-07 2014-02-07 Unknown nullFlavo Pachie S. nm9635 6d-a [facility] 14:08:00 14:08:00 lindsey Benton MD cdb-4956-a l PLLC 6c4-xqv257 [facility] ca2ef0 2014-02-07 2014-02-07 Unknown nullFlavo Pachie S. 16eab3 47-0 [facility] 14:08:00 14:08:00 lindsey Benton MD 7ee-4acf-9 l PLLC 92a-uol525 [facility] 33t371 2014-02-07 2014-02-07 Unknown nullFlavo Pachie S. 2h3989 b7-1 [facility] 14:08:00 14:08:00 lindsey Benton MD 26d-4f7e-8 l PLLC 5a2-824a34 [facility] nn 2db92f 2014-02-07 2014-02-07 Unknown nullFlavo Pachie S. e7cab7 bb-9 [facility] 14:08:00 14:08:00 lindsey Benton MD 6x1-6k23-k l PLLC j02-2tycn3 [facility] nn 4883df 2014-02-07 2014-02-07 Unknown nullFlavo Pachie S. 820e0f b3-3 [facility] 14:08:00 14:08:00 lindsey Benton MD 721-4755-a l PLLC n66-1s9i59 [facility] 88d5f1 2014-02-07 2014-02-07 Unknown nullFlavo Pachie S. 997e87 b1-c [facility] 14:08:00 14:08:00 lindsey Benton MD 2b7-2775-f l PLLC 8be-18feea [facility] nn 92088u 2014-02-07 2014-02-07 Unknown nullFlavo Pachie S. 425cd1 d2-8 [facility] 14:08:00 14:08:00 lindsey Benton MD ef2-44e2-9 l PLLC 7g1-81k46q [facility] nn 2759ba 2014-02-07 2014-02-07 Unknown nullFlavo Pachie S. 9q490o 60-c [facility] 14:08:00 14:08:00 lindsey Benton MD 670-4143-a l PLLC 7ff-f605ce [facility] 2a8c31 2014-02-07 2014-02-07 Unknown nullFlavo Pachie S. ef2ad7 7c-f [facility] 14:08:00 14:08:00 lindsey Benton MD b1s-6a72-3 l PLLC 3o7-07t80n [facility] b3cc0d 2014-02-07 2014-02-07 Unknown nullFlavo Pachie S. [id number] 9a-3 [facility] 14:08:00 14:08:00 lindsey Benton MD e56-58pc-0 l PLLC 7f6-11k34s [facility] b7291r 2014-02-07 2014-02-07 Unknown nullFlavo Pachie S. d9edd1 5b-5 [facility] 14:08:00 14:08:00 lindsey Benton MD t10-90ji-e l PLLC 3k3-4j1p48 [facility] 9a3f41 2014-02-07 2014-02-07 Outpatient Pachie S. Pachie S. 900 15 [facility] 09:08:00 09:08:00 MD Chetan Benton MD l PLLC PLLC [place] 2014-02-04 2014-02-04 Unknown nullFlavo Pachie S. f26b06 d4-d [facility] 16:29:00 16:29:00 lindsey Benton MD 1b8-8321-o l PLLC fcc-fbda39 [facility] c49f95 2014-02-04 2014-02-04 Unknown nullFlavo Pachie S. 312f0e 36-4 [facility] 16:29:00 16:29:00 lindsey Benton MD 0da-476b-9 l PLLC 218-feecc8 [facility] nn [id number] 2014-02-04 2014-02-04 Unknown nullFlavo Pachie S. 2fad25 18-8 [facility] 16:29:00 16:29:00 lindsey Benton MD 196-49cd-9 l PLLC t3m-d33g60 [facility] nn [id number] 2014-02-04 2014-02-04 Unknown nullFlavo Pachie S. 758bfe 65-b [facility] 16:29:00 16:29:00 lindsey Benton MD t7s-7f13-m l PLLC s56-01sz92 [facility] nn [id number] 1974-08-26 2014-02-04 Unknown nullFlavo Pachie S. 6f043t 46-7 [facility] 16:29:00 16:29:00 lindsey Benton MD da5-40f8-8 l PLLC 2d2-27594q [facility] nn af84b4 2014-02-04 2014-02-04 Unknown nullFlavo Pachie S. [id number] c3-9 [facility] 16:29:00 16:29:00 lindsey Benton MD 9o9-312n-i l PLLC [id number]-th6502 [facility] nn [id number] 2014-02-04 2014-02-04 Unknown nullFlavo Pachie S. ed5a7e 22-d [facility] 16:29:00 16:29:00 lindsey Benton MD 196-47d5-9 l PLLC 1i8-4780u3 [facility] nn [id number] 2014-02-04 2014-02-04 Unknown nullFlavo Pachie S. 31b22b 9a-c [facility] 16:29:00 16:29:00 lindsey Benton MD ad6-410f-8 l PLLC i25-317f34 [facility] nn 81c7cd 2014-02-04 2014-02-04 Unknown nullFlavo Pachie S. [id number] fe-d [facility] 16:29:00 16:29:00 lindsey Benton MD 17f-4411-9 l PLLC d3b-yq42t6 [facility] nn bd7e7a 2014-02-04 2014-02-04 Unknown nullFlavo Pachie S. 65c04c 62-4 [facility] 16:29:00 16:29:00 lindsey Benton MD 4fb-44a4-9 l PLLC 714-ea9a2b [facility] nn [id number] 2014-02-04 2014-02-04 Unknown nullFlavo Pachie S. 67b53a 47-c [facility] 16:29:00 16:29:00 lindsey Benton MD 9s5-94hr-7 l PLLC 1fd-57963h [facility] nn efdd3c 2014-02-04 2014-02-04 Unknown nullFlavo Pachie S. 7v9611 d7-6 [facility] 16:29:00 16:29:00 lindsey Benton MD p51-6nf5-a l PLLC 002-5d7f08 [facility] nn df09eb 2014-02-04 2014-02-04 Unknown nullFlavo Pachie S. 4ff7b7 3c-6 [facility] 16:29:00 16:29:00 lindsey Benton MD ffb-4f54-8 l PLLC ee7-899c8f [facility] nn [id number] 0704-08-26 2014-02-04 Unknown nullFlavo Pachie S. 6be7e8 e7-4 [facility] 16:29:00 16:29:00 lindsey Benton MD v52-361r-5 l PLLC 1j9-syp319 [facility] nn [id number] 2014-02-04 2014-02-04 Unknown nullFlavo Pachie S. a52b11 1b-0 [facility] 16:29:00 16:29:00 lindsey Benton MD 9p4-3bm4-0 l PLLC 642-b2b6d8 [facility] nn aef7a3 2014-02-04 2014-02-04 Unknown nullFlavo Pachie S. 72w360 b6-1 [facility] 16:29:00 16:29:00 lindsey Benton MD 084-4ae1-a l PLLC p77-j97255 [facility] nn a1c40f 2014-02-04 2014-02-04 Unknown nullFlavo Pachie S. 94e3fe 9c-6 [facility] 15:29:00 15:29:00 lindsey Benton MD 457-4128-a l PLLC 824-f2de0c [facility] 40391j 2014-02-04 2014-02-04 Unknown nullFlavo Pachie S. d6f4f0 db-b [facility] 15:29:00 15:29:00 lindsey Benton MD ac7-4480-8 l PLLC da2-4y411m [facility] 8d5f93 2014-02-04 2014-02-04 Unknown nullFlavo Pachie S. sq4901 99-d [facility] 15:29:00 15:29:00 lindsey Benton MD n6n-6371-q l PLLC 87e-39f9bc [facility] e81a97 2014-02-04 2014-02-04 Unknown nullFlavo Pachie S. h9669r f1-4 [facility] 15:29:00 15:29:00 lindsey Benton MD 7bc-4bde-8 l PLLC 9ba-d17a64 [facility] 5ca2e1 2014-02-04 2014-02-04 Unknown nullFlavo Pachie S. 4e17c1 95-3 [facility] 15:29:00 15:29:00 lindsey Benton MD 075-4851-b l PLLC cbe-ei9082 [facility] v1j882 2014-02-04 2014-02-04 Unknown nullFlavo Pachie S. e98cc4 fd-f [facility] 15:29:00 15:29:00 lindsey Benton MD t1u-3875-0 l PLLC v6y-syg038 [facility] 24o105 2014-02-04 2014-02-04 Unknown nullFlavo Pachie S. 6831ae 89-4 [facility] 15:29:00 15:29:00 lindsey Benton MD ad9-4295-a l PLLC 6y4-08823h [facility] bb5b13 2014-02-04 2014-02-04 Unknown nullFlavo Pachie S. 708e27 ee-c [facility] 15:29:00 15:29:00 lindsey Benton MD o12-2rs3-t l PLLC bd8-9e33bb [facility] 572df4 2014-02-04 2014-02-04 Unknown nullFlavo Pachie S. 8d7e42 be-5 [facility] 15:29:00 15:29:00 lindsey Benton MD u53-1zt1-b l PLLC 1n7-751tfi [facility] 5bc3cd 2014-02-04 2014-02-04 Unknown nullFlavo Pachie S. 083bf5 0e-8 [facility] 15:29:00 15:29:00 lindsey Benton MD u89-594u-g l PLLC 12e-db4d00 [facility] 665d1f 2014-02-04 2014-02-04 Unknown nullFlavo Pachie S. 7e43d7 33-9 [facility] 15:29:00 15:29:00 lindsey Benton MD 83b-44d7-b l PLLC 8t5-b3kz47 [facility] c9b01e 2014-02-04 2014-02-04 Unknown nullFlavo Pachie S. [id number] 92-1 [facility] 15:29:00 15:29:00 lindsey Benton MD 76b-4429-b l PLLC f5x-o40n43 [facility] d52017 2014-02-04 2014-02-04 Unknown nullFlavo Pachie S. [id number] a1-5 [facility]oria 15:29:00 15:29:00 lindsey Benton MD 98a-493d-a l PLLC 805-mj5011 [facility] 1ia576 2014-02-04 2014-02-04 Unknown nullFlavo Pachie S. 40bd24 68-5 Memoria 15:29:00 15:29:00 lindsey Benton MD 40a-48f9-9 l PLLC 9y3-68z25k [facility] s1158u 2014-02-04 2014-02-04 Unknown nullFlavo Pachie S. 753ef9 95-3 [facility] 15:29:00 15:29:00 lindsey Benton MD ef8-4acc-9 l PLLC [id number] [facility] ed3c2d 2014-02-04 2014-02-04 Outpatient Pachie S. Pachie S. [id number] 90 [facility]oria 10:29:00 10:29:00 MD Chetan Benton MD l PLLC PLLC [place] 2014-01-30 2014-01-30 MEDS nullFlavo Pachie S. 4m8433 22-5 [facility]oria 14:45:00 14:45:00 lindsey Benton MD 701-453a-9 l PLLC 331-011dc3 [facility] e4fc6e 2014-01-30 2014-01-30 MEDS nullFlavo Pachie S. bc4b73 6a-8 [facility]oria 14:45:00 14:45:00 lindsey Benton MD u4e-817x-6 l PLLC n33-109r7a [facility] nn 2eea29 2014-01-30 2014-01-30 MEDS nullFlavo Pachie S. 76be14 d3-1 [facility]oria 14:45:00 14:45:00 lindsey Benton MD cb1-414f-8 l PLLC u80-p348kh [facility] nn 0a51ce 2014-01-30 2014-01-30 MEDS nullFlavo Pachie S. 2438fc de-a [facility] 14:45:00 14:45:00 lindsey Benton MD 790-4c52-9 l PLLC z7n-514258 [facility] nn 29e67b 2014-01-30 2014-01-30 MEDS nullFlavo Pachie S. 0b25de b2-6 [facility]oria 14:45:00 14:45:00 lindsey Benton MD 9da-4d75-b l PLLC 5o6-606bbn [facility] nn 6580d4 2014-01-30 2014-01-30 MEDS nullFlavo Pachie S. 63057h 98-5 [facility] 14:45:00 14:45:00 lindsey Benton MD cb7-4be3-b l PLLC 651-1ef1d8 [facility] nn ddcb90 2014-01-30 2014-01-30 MEDS nullFlavo Pachie S. n01406 11-f [facility] 14:45:00 14:45:00 lindsey Benton MD 49e-4762-b l PLLC ef2-6c02ee [facility] nn 26c24f 2014-01-30 2014-01-30 MEDS nullFlavo Pachie S. [id number] b6-6 [facility] 14:45:00 14:45:00 lindsey Benton MD s93-02yt-3 l PLLC 3ae-723d24 [facility] nn 39212j 2014-01-30 2014-01-30 MEDS nullFlavo Pachie S. 1fcedf f8-5 [facility] 14:45:00 14:45:00 lindsey Benton MD i69-98m5-7 l PLLC 64a-pk102k [facility] nn e77c0c 2014-01-30 2014-01-30 MEDS nullFlavo Pachie S. eb48b4 f9-6 [facility] 14:45:00 14:45:00 lindsey Benton MD 9n1-7n3h-r l PLLC 2bf-b2a8e5 [facility] nn 8b2e71 2014-01-30 2014-01-30 MEDS nullFlavo Pachie S. 2cb77c e6-6 [facility]oria 14:45:00 14:45:00 lindsey Benton MD 4t9-7u9v-1 l PLLC 9l9-e67fr8 [facility] nn e75e49 2014-01-30 2014-01-30 MEDS nullFlavo Pachie S. [id number] e3-a [facility]oria 14:45:00 14:45:00 lindsey Benton MD h24-26ot-8 l PLLC y3j-6p84n4 [facility] nn 8f40a7 2014-01-30 2014-01-30 MEDS nullFlavo Pachie S. ba79f1 97-1 [facility] 14:45:00 14:45:00 lindsey Benton MD q2j-85d9-q l PLLC 96c-15394e [facility] nn 91y026 2014-01-30 2014-01-30 MEDS nullFlavo Pachie S. 4c8b3f b7-5 [facility]oria 14:45:00 14:45:00 lindsey Benton MD s38-6051-6 l PLLC g6d-1js65l [facility] nn a0f7e7 2014-01-30 2014-01-30 MEDS nullFlavo Pachie S. cbf91c ce-6 [facility]oria 14:45:00 14:45:00 lindsey Benton MD 1ac-4b8d-b l PLLC 22b-97386c [facility] nn s38819 2014-01-30 2014-01-30 MEDS nullFlavo Pachie S. aoy137 36-8 [facility] 14:45:00 14:45:00 lindsey Benton MD adc-454b-a l PLLC a0o-u3614c [facility] nn 14r810 2014-01-30 2014-01-30 MEDS nullFlavo Pachie S. 1ffd30 cb-7 [facility]oria 13:45:00 13:45:00 lindsey Benton MD 22e-4466-9 l PLLC 009-47b6a4 [facility] nn 3311f5 2014-01-30 2014-01-30 MEDS nullFlavo Pachie S. 9b3c69 e3-1 [facility]oria 13:45:00 13:45:00 lindsey Benton MD 799-47e0-b l PLLC 395-4c8f58 [facility] nn 38b7f3 2014-01-30 2014-01-30 MEDS nullFlavo Pachie S. 28a8c4 58-c [facility] 13:45:00 13:45:00 lindsey Benton MD 77d-4f70-8 l PLLC 353-349782 [facility] nn c0d38b 2014-01-30 2014-01-30 MEDS nullFlavo Pachie S. fe65a8 7a-d [facility] 13:45:00 13:45:00 lindsey Benton MD 4h7-5821-g l PLLC 6bc-1caef3 [facility] nn 6adb69 2014-01-30 2014-01-30 MEDS nullFlavo Pachie S. fb37a2 08-9 [facility]oria 13:45:00 13:45:00 lindsey Benton MD 662-41f7-a l PLLC w55-95l8h4 [facility] nn bc7a51 2014-01-30 2014-01-30 MEDS nullFlavo Pachie S. 3p121u 00-6 [facility]oria 13:45:00 13:45:00 lindsey Benton MD 26b-4868-b l PLLC ea9-b6e36f [facility] nn f12bd3 2014-01-30 2014-01-30 MEDS nullFlavo Pachie S. 83186y 67-3 [facility] 13:45:00 13:45:00 lindsey Benton MD 9w0-5x13-a l PLLC ca1-k99318 [facility] nn 98e63d 2014-01-30 2014-01-30 MEDS nullFlavo Pachie S. 15306a 7c-4 [facility]oria 13:45:00 13:45:00 lindsey Benton MD 2z9-2gf8-w l PLLC 686-240308 [facility] nn 047da4 2014-01-30 2014-01-30 MEDS nullFlavo Pachie S. cv300c ff-c [facility]oria 13:45:00 13:45:00 lindsey Benton MD aa2-4ecb-9 l PLLC 84d-2f93c6 [facility] nn 51j124 2014-01-30 2014-01-30 MEDS nullFlavo Pachie S. 98f50c 40-d [facility] 13:45:00 13:45:00 lindsey Benton MD 55a-4689-b l PLLC 70c-5d19af [facility] nn 9kq202 2014-01-30 2014-01-30 MEDS nullFlavo Pachie S. 7f28ac d0-e Memoria 13:45:00 13:45:00 lindsey Benton MD 9i9-6ywh-t l PLLC 0w6-8p5887 [facility] nn 2y2281 2014-01-30 2014-01-30 MEDS nullFlavo Pachie S. 278e70 6c-f Memoria 13:45:00 13:45:00 lindsey Benton MD dd3-4506-9 l PLLC g9y-9mo09o [facility] nn db26f1 2014-01-30 2014-01-30 MEDS nullFlavo Pachie S. 21dd71 cc-b [facility] 13:45:00 13:45:00 lindsey Benton MD 87b-4d13-b l PLLC 3da-f545ba [facility] nn ed0e0c 2014-01-30 2014-01-30 MEDS nullFlavo Pachie S. ec2b42 2a-a [facility]oria 13:45:00 13:45:00 lindsey Benton MD abf-4a4d-9 l PLLC 77e-2734c4 [facility] nn 4030ad 2014-01-30 2014-01-30 MEDS nullFlavo Pachie S. 199fd2 30-c Memoria 13:45:00 13:45:00 lindsey Benton MD 69a-43a3-b l PLLC 22a-7583e3 [facility] nn 0ed89f 2014-01-30 2014-01-30 Outpatient Pachie S. Pachie S. [id number] 89 Memoria 08:45:00 08:45:00 MD Chetan Benton MD l PLLC PLLC [place] 2014-01-07 2014-01-07 Unknown nullFlavo Pachie S. m5670y ff-d [facility]oria 20:16:00 20:16:00 lindsey Benton MD b11-4351-1 l PLLC g84-ne0425 [facility] nn e7ea28 2014-01-07 2014-01-07 Unknown nullFlavo Pachie S. bfb8eb 4e-3 Memoria 20:16:00 20:16:00 lindsey Benton MD 5f9-7v15-5 l PLLC f80-40z790 [facility] nn [id number] 7403-07-29 2014-01-07 Unknown nullFlavo Pachie S. c75eae d1-e [facility]oria 20:16:00 20:16:00 lindsey Benton MD 776-42ca-a l PLLC 99b-71dab9 [facility] nn 9ae36c 2014-01-07 2014-01-07 Unknown nullFlavo Pachie S. 7bd6b0 17-1 [facility]oria 20:16:00 20:16:00 lindsey Benton MD 8f6-3477-4 l PLLC 8ed-1c2c72 [facility] nn 8528af 2014-01-07 2014-01-07 Unknown nullFlavo Pachie S. [id number] 6a-2 Memoria 20:16:00 20:16:00 lindsey Benton MD cbb-426d-b l PLLC 106-569837 [facility] nn 7a7c6c 2014-01-07 2014-01-07 Unknown nullFlavo Pachie S. 2b87ec 74-9 Memoria 20:16:00 20:16:00 lindsey Benton MD h98-77ys-1 l PLLC i49-68b5n6 [facility] nn 0418be 2014-01-07 2014-01-07 Unknown nullFlavo Pachie S. 333e4c 18-6 Memoria 20:16:00 20:16:00 lindsey Benton MD 668-47c5-8 l PLLC m2g-h12954 [facility] nn 55e351 2014-01-07 2014-01-07 Unknown nullFlavo Pachie S. 43db64 77-e Memoria 20:16:00 20:16:00 lindsey Benton MD 07b-4675-b l PLLC 0ba-e141c1 [facility] nn z6i713 2014-01-07 2014-01-07 Unknown nullFlavo Pachie S. 7a95fa 36-3 Memoria 20:16:00 20:16:00 lindsey Benton MD 84c-49e7-b l PLLC 985-5f6c64 [facility] nn d0d59d 2014-01-07 2014-01-07 Unknown nullFlavo Pachie S. 747dee 76-3 Memoria 20:16:00 20:16:00 lindsey Benton MD 059-42fa-8 l PLLC edc-6619a5 [facility] nn 60909q 2014-01-07 2014-01-07 Unknown nullFlavo Pachie S. 0a2d33 81-1 [facility]oria 20:16:00 20:16:00 lindsey Benton MD 2p6-8t57-0 l PLLC eric-fccf69 [facility] nn 989c19 2014-01-07 2014-01-07 Unknown nullFlavo Pachie S. 709b6a 5e-e Memoria 20:16:00 20:16:00 lindsey Benton MD fe6-4378-8 l PLLC d3p-g8gr17 [facility] nn 0g4644 2014-01-07 2014-01-07 Unknown nullFlavo Pachie S. 22f3ca 13-f Memoria 20:16:00 20:16:00 lindsey Benton MD 445-4f58-a l PLLC o26-7069b5 [facility] nn 92efdf 2014-01-07 2014-01-07 Unknown nullFlavo Pachie S. 25ffd2 e3-6 Memoria 20:16:00 20:16:00 lindsey Benton MD 73d-4646-a l PLLC d48-343t8z [facility] nn 96d2c2 2014-01-07 2014-01-07 Unknown nullFlavo Pachie S. 27n222 1f-1 Memoria 20:16:00 20:16:00 lindsey Benton MD 8b0-19c3-k l PLLC 9d2-52r208 [facility] nn e330d6 2014-01-07 2014-01-07 Unknown nullFlavo Pachie S. 58fa45 bf-5 Memoria 20:16:00 20:16:00 lindsey Benton MD j1u-3004-6 l PLLC q8j-p5b5ql [facility] nn aba9f3 2014-01-07 2014-01-07 Unknown nullFlavo Pachie S. 59758d a7-7 Memoria 19:16:00 19:16:00 lindsey Benton MD 148-4256-9 l PLLC 48c-5cca93 [facility] nn 87aa2f 2014-01-07 2014-01-07 Unknown nullFlavo Pachie S. ok751e 9d-9 Memoria 19:16:00 19:16:00 lindsey Benton MD fa4-4259-8 l PLLC 5h1-5714x4 [facility] nn afbd4a 2014-01-07 2014-01-07 Unknown nullFlavo Pachie S. 8125b3 8c-0 Memoria 19:16:00 19:16:00 lindsey Benton MD z0n-5ec1-6 l PLLC 74e-9aaa10 [facility] nn 77109m 2014-01-07 2014-01-07 Unknown nullFlavo Pachie S. a69bc1 34-6 Memoria 19:16:00 19:16:00 lindsey Benton MD 9q6-8a42-h l PLLC 2a5-x7050l [facility] nn k0272i 2014-01-07 2014-01-07 Unknown nullFlavo Pachie S. 319992 25-3 Memoria 19:16:00 19:16:00 lindsey Benton MD 26b-4d60-a l PLLC 6fb-7j296s [facility] nn 49774p 2014-01-07 2014-01-07 Unknown nullFlavo Pachie S. 8206a1 7f-6 Memoria 19:16:00 19:16:00 lindsey Benton MD 349-4dce-b l PLLC 5be-42d2dc [facility] nn 6e56b9 2014-01-07 2014-01-07 Unknown nullFlavo Pachie S. 0t5924 55-7 Memoria 19:16:00 19:16:00 lindsey Benton MD r2l-3t2d-2 l PLLC 626-f4a66d [facility] nn 3f37de 2014-01-07 2014-01-07 Unknown nullFlavo Pachie S. hr6826 18-0 Memoria 19:16:00 19:16:00 lindsey Benton MD 102-41b8-8 l PLLC fac-97ff19 [facility] nn ffc4c3 2014-01-07 2014-01-07 Unknown nullFlavo Pachie S. 911622 31-8 Memoria 19:16:00 19:16:00 lindsey Benton MD 096-41f9-a l PLLC y0k-6m7290 [facility] nn 3e51f2 2014-01-07 2014-01-07 Unknown nullFlavo Pachie S. 8pk083 bc-a [facility]oria 19:16:00 19:16:00 lindsey Benton MD efc-4a64-9 l PLLC d78-44349m [facility] nn 84d7e8 2014-01-07 2014-01-07 Unknown nullFlavo Pachie S. fcb09c 9b-b Memoria 19:16:00 19:16:00 lindsey Benton MD 8dd-4a5d-9 l PLLC 838-cbc15a [facility] nn mp9547 2014-01-07 2014-01-07 Unknown nullFlavo Pachie S. 58522l ee-c Memoria 19:16:00 19:16:00 lindsey Benton MD 911-497c-a l PLLC 716-3a1af7 [facility] nn eee8ec 2014-01-07 2014-01-07 Unknown nullFlavo Pachie S. 08e585 79-8 Memoria 19:16:00 19:16:00 lindsey Benton MD s05-0uf5-6 l PLLC k98-389o5f [facility] nn 76acf7 2014-01-07 2014-01-07 Unknown nullFlavo Pachie S. 2695d7 e3-e Memoria 19:16:00 19:16:00 lindsey Benton MD 485-4e99-a l PLLC 6i7-7494t6 [facility] nn 88n744 2014-01-07 2014-01-07 Unknown nullFlavo Pachie S. ddb4cc 49-5 Memoria 19:16:00 19:16:00 lindsey Benton MD 9f4-50wd-2 l PLLC t3w-bqh321 [facility] nn b90876 2014-01-07 2014-01-07 Unknown nullFlavo Pachie S. p67207 d5-e Memoria 19:16:00 19:16:00 lindsey Benton MD de9-4b18-9 l PLLC 71a-f8m013 [facility] nn c63afd 2014-01-07 2014-01-07 Outpatient Pachie S. Pachie S. 884 64 Memoria 14:16:00 14:16:00 MD Chetan Benton MD l PLLC PLLC [place] 2013-12-05 2013-12-05 seizure nullFlavo Pachie S. df8ea2 0d-1 Memoria 20:15:00 20:15:00 lindsey Benton MD phoenix-43fe-b l PLLC 29b-5v734u [facility] nn 9l0083 2013-12-05 2013-12-05 seizure nullFlavo Pachie S. 4fdc7f bb-a [facility]oria 20:15:00 20:15:00 lindsey Benton MD 08b-4b65-9 l PLLC 014-e97fd1 [facility] nn 1547b4 2013-12-05 2013-12-05 seizure nullFlavo Pachie S. nht774 3c-2 Memoria 20:15:00 20:15:00 lindsey Benton MD 7u5-756y-1 l PLLC 01e-8d03c8 [facility] nn 7s869g 2013-12-05 2013-12-05 seizure nullFlavo Pachie S. 1b13a4 36-f [facility] 20:15:00 20:15:00 lindsey Benton MD 918-48f2-a l PLLC k2w-0ob98s [facility] nn 02035m 2013-12-05 2013-12-05 seizure nullFlavo Pachie S. ol0540 56-a [facility] 20:15:00 20:15:00 lindsey Benton MD g6o-5409-j l PLLC bcd-d957e0 [facility] nn 9af9e4 2013-12-05 2013-12-05 seizure nullFlavo Pachie S. fca5a3 84-9 Memoria 20:15:00 20:15:00 lindsey Benton MD 5y0-42x6-o l PLLC 74e-cfea70 [facility] nn 6d9f5f 2013-12-05 2013-12-05 seizure nullFlavo Pachie S. 698e9b d3-1 Memoria 20:15:00 20:15:00 lindsey Benton MD fe7-4f77-8 l PLLC ad1-e2b3f1 [facility] nn 24d85c 2013-12-05 2013-12-05 seizure nullFlavo Pachie S. 8b8a99 39-7 [facility]oria 20:15:00 20:15:00 lindsey Benton MD l11-8sm8-0 l PLLC 52a-4o745q [facility] nn 592e96 2013-12-05 2013-12-05 seizure nullFlavo Pachie S. a858e9 3b-c Memoria 20:15:00 20:15:00 lindsey Benton MD 8dc-48a7-8 l PLLC 070-37e0ba [facility] nn 38db0c 2013-12-05 2013-12-05 seizure nullFlavo Pachie S. f90052 e3-2 Memoria 20:15:00 20:15:00 lindsey Benton MD d4r-66r5-4 l PLLC 151-8020d5 [facility] nn 50abd8 2013-12-05 2013-12-05 seizure nullFlavo Pachie S. a24f77 6d-5 Memoria 20:15:00 20:15:00 lindsey Benton MD 5ff-42dd-8 l PLLC 5f9-81n2a1 [facility] nn dc3b0a 2013-12-05 2013-12-05 seizure nullFlavo Pachie S. cc98d3 0b-f [facility]oria 20:15:00 20:15:00 lindsey Benton MD 18e-4c40-9 l PLLC aad-481260 [facility] nn 1844b7 2013-12-05 2013-12-05 seizure nullFlavo Pachie S. 47v345 27-2 Memoria 20:15:00 20:15:00 lindsey Benton MD 20f-42ef-b l PLLC 65e-0dae56 [facility] nn e69a21 2013-12-05 2013-12-05 seizure nullFlavo Pachie S. 07486h c7-5 Memoria 20:15:00 20:15:00 lindsey Benton MD eee-4b7f-b l PLLC 6v9-rc1i1m [facility] nn y5z817 2013-12-05 2013-12-05 seizure nullFlavo Pachie S. 49a8ee ff-6 Memoria 20:15:00 20:15:00 lindsey Benton MD 0b5-695z-2 l PLLC 40d-7cf70b [facility] nn 6e84df 2013-12-05 2013-12-05 seizure nullFlavo Pachie S. ec7f80 ab-d [facility] 20:15:00 20:15:00 lindsey Benton MD ea4-4e0c-b l PLLC a02-810820 [facility] 74u151 2013-12-05 2013-12-05 seizure nullFlavo Pachie S. 9k5853 16-2 Memoria 19:15:00 19:15:00 lindsey Benton MD l5j-5psw-g l PLLC 74a-77g123 [facility] s95083 2013-12-05 2013-12-05 seizure nullFlavo Pachie S. 034425 84-2 [facility] 19:15:00 19:15:00 lindsey Benton MD 015-42e1-8 l PLLC o04- [facility] ae6e92 2013-12-05 2013-12-05 seizure nullFlavo Pachie S. ad3c87 87-6 [facility] 19:15:00 19:15:00 lindsey Benton MD c6m-3nh8-9 l PLLC l59-5g2d21 [facility] 342c41 2013-12-05 2013-12-05 seizure nullFlavo Pachie S. 13u870 7b-1 [facility] 19:15:00 19:15:00 lindsey Benton MD 4b3-727t-5 l PLLC edc-ef78d1 [facility] 9t3768 2013-12-05 2013-12-05 seizure nullFlavo Pachie S. baef10 a4-6 [facility] 19:15:00 19:15:00 lindsey Benton MD 195-491b-a l PLLC fcb-768d77 [facility] ddc0a0 2013-12-05 2013-12-05 seizure nullFlavo Pachie S. 14cae1 71-d [facility] 19:15:00 19:15:00 lindsey Benton MD 479-42ce-8 l PLLC 31e-b655d9 [facility] eg619k 2013-12-05 2013-12-05 seizure nullFlavo Pachie S. 138952 ad-4 [facility] 19:15:00 19:15:00 lindsey Benton MD 0p3-269k-r l PLLC u97-66f782 [facility] 641ce0 2013-12-05 2013-12-05 seizure nullFlavo Pachie S. bb0b62 48-8 [facility] 19:15:00 19:15:00 lindsey Benton MD 8i9-114x-1 l PLLC m17-315v99 [facility] 08859k 2013-12-05 2013-12-05 seizure nullFlavo Pachie S. ks3170 ac-a [facility] 19:15:00 19:15:00 lindsey Benton MD 9c4-07kh-o l PLLC 099-0ad8ba [facility] q64641 2013-12-05 2013-12-05 seizure nullFlavo Pachie S. n1983a bc-1 [facility] 19:15:00 19:15:00 lindsey Benton MD 5v0-66d5-l l PLLC ce6-22fdf6 [facility] 3l4697 2013-12-05 2013-12-05 seizure nullFlavo Pachie S. h7t241 79-2 [facility] 19:15:00 19:15:00 lindsey Benton MD e00-27eg-3 l PLLC 7y8-o2t383 [facility] 0s477w 2013-12-05 2013-12-05 seizure nullFlavo Pachie S. e40bd0 8d-f [facility] 19:15:00 19:15:00 lindsey Benton MD 75a-48cd-8 l PLLC 58d-9r7582 [facility] 0734d6 2013-12-05 2013-12-05 seizure nullFlavo Pachie S. a5be16 81-3 [facility] 19:15:00 19:15:00 lindsey Benton MD 4dd-47d7-a l PLLC 18e-529339 [facility] cb2d04 2013-12-05 2013-12-05 seizure nullFlavo Pachie S. 6745ee f2-f [facility] 19:15:00 19:15:00 lindsey Benton MD 986-4d65-8 l PLLC 1da-gy186m [facility] 6b80a1 2013-12-05 2013-12-05 seizure nullFlavo Pachie S. 1b83bb 02-3 [facility] 19:15:00 19:15:00 lindsey Benton MD 741-4521-a l PLLC l20-7qw617 [facility] 965510 3381-06-26 2013-12-05 seizure nullFlavo Pachie S. 5c7e43 0e-a [facility]oria 19:15:00 19:15:00 lindsey Benton MD z8r-55b9-7 l PLLC bdf-6v0670 [facility] 6dff6e 2013-12-05 2013-12-05 Outpatient Pachie S. Pachie S. 867 24 [facility] 14:15:00 14:15:00 MD Chetan Benton MD l PLLC PLLC [place] 2013-11-01 2013-11-01 Unknown nullFlavo Pachie S. 16bd75 99-f [facility] 18:34:00 18:34:00 lindsey Benton MD 337-4d2e-a l PLLC 52c-fdcaf2 [facility] f82303 2013-11-01 2013-11-01 Unknown nullFlavo Pachie S. jvw733 b3-f [facility] 18:34:00 18:34:00 lindsey Benton MD 8p1-672j-n l PLLC 5ab-8e8680 [facility] 7511e2 2013-11-01 2013-11-01 Unknown nullFlavo Pachie S. 842098 67-e [facility] 18:34:00 18:34:00 lindsey Benton MD 9fe-4b7a-b l PLLC 1cd-71c6ad [facility] 55166x 2013-11-01 2013-11-01 Unknown nullFlavo Pachie S. 7ce3c3 fa-3 [facility] 18:34:00 18:34:00 lindsey Benton MD 026-449c-8 l PLLC 4h8-23af51 [facility] 934965 1657-05-23 2013-11-01 Unknown nullFlavo Pachie S. dea9b6 88-a [facility] 18:34:00 18:34:00 lindsey Benton MD 5j3-13ox-i l PLLC 288-4cd32b [facility] 61cb02 2013-11-01 2013-11-01 Unknown nullFlavo Pachie S. 09020f 9e-c Memoria 18:34:00 18:34:00 lindsey Benton MD dd5-4f10-9 l PLLC 2db-de0b3e [facility] f89e6f 2013-11-01 2013-11-01 Unknown nullFlavo Pachie S. 1f6b32 23-3 [facility] 18:34:00 18:34:00 lindsey Benton MD 3ec-4afc-a l PLLC k81-t98dqw [facility] b7cda3 2013-11-01 2013-11-01 Unknown nullFlavo Pachie S. 51a20f 4b-b [facility] 18:34:00 18:34:00 lindsey Benton MD 7bf-4b29-b l PLLC 73a-1d0766 [facility] 7r8723 2013-11-01 2013-11-01 Unknown nullFlavo Pachie S. 1fcc9a 59-e [facility] 18:34:00 18:34:00 lindsey Benton MD eb9-44c1-8 l PLLC t5s-he1y42 [facility] fe06a8 2013-11-01 2013-11-01 Unknown nullFlavo Pachie S. d4d5bd 40-f [facility] 18:34:00 18:34:00 lindsey Benton MD 08a-4544-b l PLLC 6da-c2c7ab [facility] df3e54 2013-11-01 2013-11-01 Unknown nullFlavo Pachie S. ba073w 90-0 [facility] 18:34:00 18:34:00 lindsey Benton MD 721-4af2-b l PLLC 419-mjl715 [facility] ad7b54 2013-11-01 2013-11-01 Unknown nullFlavo Pachie S. e3ec96 05-e [facility] 18:34:00 18:34:00 lindsey Benton MD 47e-4ff3-b l PLLC 958-ff8b58 [facility] ce8e2c 2013-11-01 2013-11-01 Unknown nullFlavo Pachie S. f2a87b e2-e [facility] 18:34:00 18:34:00 lindsey Benton MD y43-1z95-n l PLLC 3ec-b949c7 [facility] [id number] 2013-11-01 2013-11-01 Unknown nullFlavo Pachie S. 57fae0 de-c [facility] 18:34:00 18:34:00 lindsey Benton MD 177-46a4-8 l PLLC v70-g3192l [facility] [id number] 8188-05-23 2013-11-01 Unknown nullFlavo Pachie S. 8a479p d3-a [facility] 18:34:00 18:34:00 lindsey Benton MD 4d9-10rt-r l PLLC 5h6-71a984 [place] nn [id number] 2013-11-01 2013-11-01 Unknown nullFlavo Pachie S. 7359ab 97-1 [facility] 18:34:00 18:34:00 lindsey Benton MD af8-46cd-a l PLLC 2w0-5m1nvz [facility] nn [id number] 2013-11-01 2013-11-01 Unknown nullFlavo Pachie S. 53662f f9-5 [facility] 17:34:00 17:34:00 lindsey Benton MD n94-3cft-8 l PLLC 4cd-65214t [facility] nn [id number] 4561-05-23 2013-11-01 Unknown nullFlavo Pachie S. a3e0db 18-2 [facility] 17:34:00 17:34:00 lindsey Benton MD 0j0-78sa-7 l PLLC 3j4-77t14n [facility] nn a15e0a 2013-11-01 2013-11-01 Unknown nullFlavo Pachie S. 89c9c5 43-f [facility] 17:34:00 17:34:00 lindsey Benton MD n85-7927-8 l PLLC 30b-a46289 [facility] nn [id number] 2013-11-01 2013-11-01 Unknown nullFlavo Pachie S. 49559d e9-6 [facility] 17:34:00 17:34:00 lindsey Benton MD 067-4cbb-9 l PLLC ae6-c8f72c [facility] nn [id number] 6022-05-23 2013-11-01 Unknown nullFlavo Pachie S. [id number] 3b-0 [facility] 17:34:00 17:34:00 lindsey Benton MD d10-5h93-6 l PLLC 0s9-a08871 [facility] nn [id number] 2013-11-01 2013-11-01 Unknown nullFlavo Pachie S. 2c1aa0 08-4 [facility] 17:34:00 17:34:00 lindsey Benton MD 47c-4eae-9 l PLLC 660-bfb4da [facility] nn [id number] 2013-11-01 2013-11-01 Unknown nullFlavo Pachie S. dd0c16 e2-5 [facility] 17:34:00 17:34:00 lindsey Benton MD db5-4159-8 l PLLC 218-294dee [facility] nn [id number] 2013-11-01 2013-11-01 Unknown nullFlavo Pachie S. 946f71 d4-5 [facility] 17:34:00 17:34:00 lindsey Benton MD 120-4d28-a l PLLC [id number] [facility] [id number] 2013-11-01 2013-11-01 Unknown nullFlavo Pachie S. 9e3f6e f8-6 [facility] 17:34:00 17:34:00 lindsey Benton MD 041-41a2-b l PLLC 5aa-1vo938 [facility] nn 56b3bf 2013-11-01 2013-11-01 Unknown nullFlavo Pachie S. 2fd02e d0-8 [facility] 17:34:00 17:34:00 lindsey Benton MD 020-4a7b-8 l PLLC 572-bf35c0 [facility] nn [id number] 2013-11-01 2013-11-01 Unknown nullFlavo Pachie S. 2ym470 bd-7 [facility] 17:34:00 17:34:00 lindsey Benton MD bfb-4922-a l PLLC acf-c651a2 [facility] nn [id number] 2013-11-01 2013-11-01 Unknown nullFlavo Pachie S. 64i240 b9-c [facility] 17:34:00 17:34:00 lindsey Benton MD 7t0-2i3v-p l PLLC l27-3w2cdv [facility] nn [id number] 2013-11-01 2013-11-01 Unknown nullFlavo Pachie S. ae40ee 76-5 [facility] 17:34:00 17:34:00 lindsey Benton MD 588-46e8-b l PLLC 4x4-598339 [facility] nn [id number] 2013-11-01 2013-11-01 Unknown nullFlavo Pachie S. 69bee0 1c-f [facility] 17:34:00 17:34:00 lindsey Benton MD 2x4-6wz2-g l PLLC 3q2-74227x [facility] nn [id number] 2013-11-01 2013-11-01 Unknown nullFlavo Pachie S. 7z1587 2a-8 [facility] 17:34:00 17:34:00 lindsey Benton MD 370-40e1-8 l PLLC i78-16513z [facility] 6mm010 2013-11-01 2013-11-01 Unknown nullFlavo Pachie S. 9d59d2 03-9 [facility] 17:34:00 17:34:00 lindsey Benton MD 834-4f84-a l PLLC u7u-31ps13 [facility] 8ef95e 2013-11-01 2013-11-01 Unknown nullFlavo Pachie S. 7dfa55 5d-5 [facility] 17:34:00 17:34:00 lindsey Benton MD 8a8-7h6m-8 l PLLC [id number]-i82687 [facility] 303efc 2013-11-01 2013-11-01 Outpatient Pachie S. Pachie S. 852 18 [facility]oria 12:34:00 12:34:00 MD Chetan Benton MD l PLLC PLLC [place] 2013-10-21 2013-10-21 Unknown nullFlavo Pachie S. 36cc1a 40-6 [facility] 14:15:00 14:15:00 lindsey Benton MD n8p-4vr7-h l PLLC 0ab-d4a32c [facility] ed0cc8 2013-10-21 2013-10-21 Unknown nullFlavo Pachie S. 69c5bd b2-6 [facility] 14:15:00 14:15:00 lindsey Benton MD fca-41e8-a l PLLC n2l-z76a58 [facility] 0641a5 2013-10-21 2013-10-21 Unknown nullFlavo Pachie S. [id number] 38-5 [facility] 14:15:00 14:15:00 lindsey Benton MD 71d-479f-a l PLLC [id number]-666291 [facility] [id number] 2013-10-21 2013-10-21 Unknown nullFlavo Pachie S. [id number] 9f-a [facility] 14:15:00 14:15:00 lindsey Benton MD 97c-407a-9 l PLLC p43-s0t146 [facility] nn [id number] 2559-05-12 2013-10-21 Unknown nullFlavo Pachie S. 0fa6a7 e6-a [facility] 14:15:00 14:15:00 lindsey Benton MD r23-1w25-b l PLLC aa1-44n507 [facility] nn ceb35c 2013-10-21 2013-10-21 Unknown nullFlavo Pachie S. e640f3 83-3 [facility] 14:15:00 14:15:00 lindsey Benton MD r00-0y5a-q l PLLC l02-773u0q [facility] nn [id number] 2013-10-21 2013-10-21 Unknown nullFlavo Pachie S. 44f4f7 00-d [facility] 14:15:00 14:15:00 lindsey Benton MD 121-4950-a l PLLC o66-9eeb65 [facility] nn [id number] 2013-10-21 2013-10-21 Unknown nullFlavo Pachie S. 8aea15 eb-3 [facility] 14:15:00 14:15:00 lindsey Benton MD 773-47c0-9 l PLLC bcc-f6c78a [facility] nn 86bbc1 2013-10-21 2013-10-21 Unknown nullFlavo Pachie S. e7b1ab a0-4 [facility] 14:15:00 14:15:00 lindsey Benton MD 941-4fc3-b l PLLC fa9-dl601y [facility] nn [id number] 2013-10-21 2013-10-21 Unknown nullFlavo Pachie S. [id number] f0-3 [facility] 14:15:00 14:15:00 lindsey Benton MD 1fd-45a4-9 l PLLC 113-d2f1ea [facility] nn 6i1944 2013-10-21 2013-10-21 Unknown nullFlavo Pachie S. 89675k 09-1 [facility] 14:15:00 14:15:00 lindsey Benton MD 9w0-179o-b l PLLC d8b-7j081d [facility] nn 59c8d3 2013-10-21 2013-10-21 Unknown nullFlavo Pachie S. 6c5fe4 62-a [facility] 14:15:00 14:15:00 lindsey Benton MD x27-5f13-p l PLLC l2k-45xk10 [facility] nn b88f2e 2013-10-21 2013-10-21 Unknown nullFlavo Pachie S. c36d14 b6-0 [facility] 14:15:00 14:15:00 lindsey Benton MD a86-4r4g-e l PLLC t7y-0372d5 [facility] nn 0d79c8 2013-10-21 2013-10-21 Unknown nullFlavo Pachie S. 055245 f4-9 [facility] 14:15:00 14:15:00 lindsey Benton MD 38c-4e2d-8 l PLLC 0bc-5ccee0 [facility] nn 7dc2dd 2013-10-21 2013-10-21 Unknown nullFlavo Pachie S. m8136t 44-d [facility] 14:15:00 14:15:00 lindsey Benton MD 964-47b8-b l PLLC 05e-f70cbf [facility] nn 2983e0 2013-10-21 2013-10-21 Unknown nullFlavo Pachie S. 3149e6 cd-6 [facility] 14:15:00 14:15:00 lindsey Benton MD 7de-4340-8 l PLLC 1bc-85ff94 [facility] nn 0ff9b9 2013-10-21 2013-10-21 Unknown nullFlavo Pachie S. r1895h 07-e [facility] 13:15:00 13:15:00 lindsey Benton MD 9r4-646s-e l PLLC 055-8377d2 [facility] nn 9a5d70 2013-10-21 2013-10-21 Unknown nullFlavo Pachie S. 4f7a32 79-7 [facility] 13:15:00 13:15:00 lindsey Benton MD 1a6-7533-m l PLLC john-2a93fb [facility] nn 98e1ca 2013-10-21 2013-10-21 Unknown nullFlavo Pachie S. 904e6b 02-7 [facility] 13:15:00 13:15:00 lindsey Benton MD 43c-4dc4-8 l PLLC 196-98f64b [facility] nn 9ce8d1 2013-10-21 2013-10-21 Unknown nullFlavo Pachie S. 147de4 fa-3 [facility] 13:15:00 13:15:00 lindsey Benton MD 179-4ba1-9 l PLLC x24-l22tu3 [facility] nn 7b47ae 2013-10-21 2013-10-21 Unknown nullFlavo Pachie S. 10a9f8 5a-7 [facility] 13:15:00 13:15:00 lindsey Benton MD bf8-4c4a-9 l PLLC be4-19cfe8 [facility] nn 34d38f 2013-10-21 2013-10-21 Unknown nullFlavo Pachie S. 87a021 3b-e [facility] 13:15:00 13:15:00 lindsey Benton MD 337-4f67-a l PLLC u63-k1r514 [facility] nn a3k717 2013-10-21 2013-10-21 Unknown nullFlavo Pachie S. 2309f3 08-6 [facility] 13:15:00 13:15:00 lindsey Benton MD 4n3-8irx-3 l PLLC w5k-hj5dey [facility] nn qg4634 2013-10-21 2013-10-21 Unknown nullFlavo Pachie S. 1983ab 1b-a [facility] 13:15:00 13:15:00 lindsey Benton MD h8o-918h-u l PLLC ab1-401761 [facility] nn aee2aa 2013-10-21 2013-10-21 Unknown nullFlavo Pachie S. 8dc0b3 8b-0 [facility] 13:15:00 13:15:00 lindsey Benton MD 13a-48ca-b l PLLC 396-os0323 [facility] nn p04593 2013-10-21 2013-10-21 Unknown nullFlavo Pachie S. fafe7d d8-c [facility] 13:15:00 13:15:00 lindsey Benton MD 41c-435a-8 l PLLC 20f-ff76cf [facility] nn abf3f1 2013-10-21 2013-10-21 Unknown nullFlavo Pachie S. b93b2d 43-f [facility] 13:15:00 13:15:00 lindsey Benton MD 379-4b3f-b l PLLC 0n6-ag027v [facility] nn 560e72 2013-10-21 2013-10-21 Unknown nullFlavo Pachie S. 4e0e59 28-7 [facility] 13:15:00 13:15:00 lindsey Benton MD n66-1625-9 l PLLC bbf-770475 [facility] nn 76fb0e 2013-10-21 2013-10-21 Unknown nullFlavo Pachie S. n8302e ee-2 [facility] 13:15:00 13:15:00 lindsey Benton MD q8r-5262-1 l PLLC 2q0-c77996 [facility] nn 5747d9 2013-10-21 2013-10-21 Unknown nullFlavo Pachie S. 69aa53 4c-4 [facility] 13:15:00 13:15:00 lindsey Benton MD 308-4b49-b l PLLC 424-758d02 [facility] nn 3d5f2b 2013-10-21 2013-10-21 Unknown nullFlavo Pachie S. 6i2962 86-0 [facility] 13:15:00 13:15:00 lindsey Benton MD 749-4760-9 l PLLC 091-1224aa [facility] nn 3fw590 2013-10-21 2013-10-21 Unknown nullFlavo Pachie S. 9x8841 c8-9 [facility] 13:15:00 13:15:00 lindsey Benton MD 6z4-760h-1 l PLLC 011-f33cf5 [facility] nn 51aed4 2013-10-21 2013-10-21 Unknown nullFlavo Pachie S. tj8119 46-c [facility] 13:15:00 13:15:00 lindsey Benton MD 24d-46c1-b l PLLC v47-34i26h [facility] nn gss858 2013-10-21 2013-10-21 Unknown nullFlavo Pachie S. 5t2596 4d-8 [facility] 13:15:00 13:15:00 lindsey Benton MD bb1-4896-a l PLLC 10c-f6be29 [facility] nn 5818d0 2013-10-21 2013-10-21 Outpatient Pachie S. Pachie S. 840 08 [facility] 08:15:00 08:15:00 MD Chetan Benton MD l PLLC PLLC [place] 2013-10-09 2013-10-09 LETTER nullFlavo Pachie S. 05d55c 6f-6 [facility] 16:30:00 16:30:00 HARPER Benton MD ae5-41f4-a l PLLC 385-2b4ef9 [facility] l48354 2013-10-09 2013-10-09 LETTER nullFlavo Pachie S. yyv523 fd-9 [facility] 16:30:00 16:30:00 NEEDED lindsey Benton MD 5j5-1270-o l PLLC 1s4-13t376 [facility] 963e93 2013-10-09 2013-10-09 LETTER nullFlavo Pachie S. 381d59 f4-4 [facility] 16:30:00 16:30:00 NEEDED lindsey Benton MD 48b-4ed4-8 l PLLC 42c-c5a6e0 [facility] 0464f4 2013-10-09 2013-10-09 LETTER nullFlavo Pachie S. 6c1619 e9-c [facility] 16:30:00 16:30:00 NEEDED lindsey Benton MD 516-4ca0-b l PLLC 38d-52dd34 [facility] d4bcd7 2013-10-09 2013-10-09 LETTER nullFlavo Pachie S. fc21a9 e1-e [facility] 16:30:00 16:30:00 NEEDED lindsey Benton MD 736-461e-8 l PLLC 855-687053 [facility] 956da6 2013-10-09 2013-10-09 LETTER nullFlavo Pachie S. 0673ce 79-c [facility] 16:30:00 16:30:00 NEEDED lindsey Benton MD fbc-4e98-8 l PLLC 0bf-h0d861 [facility] 2d5a56 2013-10-09 2013-10-09 LETTER nullFlavo Pachie S. 4b7382 20-8 [facility] 16:30:00 16:30:00 NEEDED lindsey Benton MD 672-4d4a-9 l PLLC 280-2e23d1 [facility] 500145 1518-04-30 2013-10-09 LETTER nullFlavo Pachie S. 4c5c98 c7-8 [facility] 16:30:00 16:30:00 NEEDED lindsey Benton MD 05a-4c11-a l PLLC 1de-228186 [facility] 222240 4954-04-30 2013-10-09 LETTER nullFlavo Pachie S. o4928o 83-0 [facility] 16:30:00 16:30:00 NEEDED lindsey Benton MD 0cb-4ae4-9 l PLLC bf7-391e36 [facility] nn [id number] 8652-04-30 2013-10-09 LETTER nullFlavo Pachie S. 381ee9 13-8 [facility] 16:30:00 16:30:00 NEEDED lindsey Benton MD 5b0-0js6-e l PLLC b46-x75706 [facility] bf3ef4 2013-10-09 2013-10-09 LETTER nullFlavo Pachie S. 1f02d3 98-b [facility] 16:30:00 16:30:00 NEEDED lindsey Benton MD 46d-4576-a l PLLC 6p8-0ml2dv [facility] nn [id number] 5536-04-30 2013-10-09 LETTER nullFlavo Pachie S. 66x585 94-d [facility] 16:30:00 16:30:00 NEEDED lindsey Benton MD 543-4331-8 l PLLC 2bc-8990c3 [facility] xr529l 2013-10-09 2013-10-09 LETTER nullFlavo Pachie S. 8abd83 f6-7 [facility] 16:30:00 16:30:00 NEEDED lindsey Benton MD 9ad-44c3-b l PLLC cb3-90w128 [facility] nn 7079ba 2013-10-09 2013-10-09 LETTER nullFlavo Pachie S. r95043 d0-d [facility] 16:30:00 16:30:00 NEEDED lindsey Benton MD 9t0-728m-j l PLLC u21-284205 [facility] f7ace6 2013-10-09 2013-10-09 LETTER nullFlavo Pachie S. b73e08 ae-c [facility] 16:30:00 16:30:00 NEEDED lindsey Benton MD 590-4aa6-8 l PLLC 6ac-0a1e91 [facility] nn cf18b5 2013-10-09 2013-10-09 LETTER nullFlavo Pachie S. 0aea7c 62-1 [facility] 16:30:00 16:30:00 NEEDED lindsey Benton MD 196-4d2c-8 l PLLC l08-2c3x4j [facility] b0a10a 2013-10-09 2013-10-09 LETTER nullFlavo Pachie S. bd1e1a 95-1 [facility] 15:30:00 15:30:00 NEEDED lindsey Benton MD h1n-292c-v l PLLC 284-90602z [facility] nn 5d3f90 2013-10-09 2013-10-09 LETTER nullFlavo Pachie S. f9f0ae 31-3 [facility] 15:30:00 15:30:00 NEEDED lindsey Benton MD 4a4-414i-j l PLLC t16-7tf7v2 [facility] nn 05cc41 2013-10-09 2013-10-09 LETTER nullFlavo Pachie S. b757a6 4d-f [facility] 15:30:00 15:30:00 NEEDED lindsey Benton MD 367-449e-8 l PLLC 45a-8y5920 [facility] nn c3bac4 2013-10-09 2013-10-09 LETTER nullFlavo Pachie S. 781b9a 06-7 [facility] 15:30:00 15:30:00 NEEDED lindsey Benton MD 169-49d7-a l PLLC 2g7-12nn9j [facility] nn 1d26b8 2013-10-09 2013-10-09 LETTER nullFlavo Pachie S. 558ffa bc-2 [facility] 15:30:00 15:30:00 NEEDED lindsey Benton MD x68-7xv6-2 l PLLC u52-82k91z [facility] nn 8l791f 2013-10-09 2013-10-09 LETTER nullFlavo Pachie S. 91605f e8-9 [facility] 15:30:00 15:30:00 NEEDED lindsey Benton MD 817-4170-8 l PLLC 0ea-bfd26d [facility] nn 4bbe64 2013-10-09 2013-10-09 LETTER nullFlavo Pachie S. c162e3 44-a [facility] 15:30:00 15:30:00 NEEDED lindsey Benton MD 9ef-407c-8 l PLLC 716-30d144 [facility] nn 5d5ab9 2013-10-09 2013-10-09 LETTER nullFlavo Pachie S. [id number] d0-3 [facility] 15:30:00 15:30:00 NEEDED lindsey Benton MD fc5-4b38-a l PLLC 710-65457z [facility] nn 0a8d6f 2013-10-09 2013-10-09 LETTER nullFlavo Pachie S. 969c04 16-d [facility] 15:30:00 15:30:00 NEEDED lindsey Benton MD i9f-3101-1 l PLLC 683-9v9604 [facility] f43cc6 2013-10-09 2013-10-09 LETTER nullFlavo Pachie S. aadb47 e1-a [facility] 15:30:00 15:30:00 NEEDED lindsey Benton MD db8-4329-a l PLLC 21e-bbd6e3 [facility] nn 8577a3 2013-10-09 2013-10-09 LETTER nullFlavo Pachie S. 1fd1c7 61-b [facility] 15:30:00 15:30:00 NEEDED lindsey Benton MD df0-4123-9 l PLLC dab-94o077 [facility] 018445 3274-04-30 2013-10-09 LETTER nullFlavo Pachie S. 2abb24 74-3 [facility] 15:30:00 15:30:00 NEEDED lindsey Benton MD k47-58k5-b l PLLC 06c-hqh012 [facility] 20783v 2013-10-09 2013-10-09 LETTER nullFlavo Pachie S. 31bca4 29-9 [facility] 15:30:00 15:30:00 NEEDED lindsey Benton MD ceb-4e93-9 l PLLC ddc-59478o [facility] 9b4c60 2013-10-09 2013-10-09 LETTER nullFlavo Pachie S. 2a55b9 d0-b [facility] 15:30:00 15:30:00 NEEDED lindsey Benton MD j0w-5164-y l PLLC 826-5d2885 [facility] de11e9 2013-10-09 2013-10-09 LETTER nullFlavo Pachie S. acb7b2 b6-d [facility] 15:30:00 15:30:00 NEEDED lindsey Benton MD 05d-4a35-9 l PLLC x4e-pq9461 [facility] 0df5e4 2013-10-09 2013-10-09 LETTER nullFlavo Pachie S. 27240m 28-5 [facility] 15:30:00 15:30:00 NEEDED lindsey Benton MD 24a-4804-8 l PLLC 1ba-3b97ab [facility] 59k228 2013-10-09 2013-10-09 LETTER nullFlavo Pachie S. 25b4f6 0f-e [facility] 15:30:00 15:30:00 NEEDED lindsey Benton MD 501-4fc0-8 l PLLC 328-481b7f [facility] 288950 6519-04-30 2013-10-09 LETTER nullFlavo Pachie S. 01c8d6 0d-8 [facility] 15:30:00 15:30:00 NEEDED lindsey Benton MD s99-124b-k l PLLC 36b-ae1ffe [facility] 97de92 2013-10-09 2013-10-09 LETTER nullFlavo Pachie S. 1f4e52 be-2 [facility] 15:30:00 15:30:00 NEEDED lindsey Benton MD ba1-4e81-9 l PLLC 308-e64b53 [facility] 35b3c2 2013-10-09 2013-10-09 Outpatient Pachie S. Pachie S. 839 14 Mem[facility] 10:30:00 10:30:00 MD Chetan Benton MD l PLLC PLLC [place] 2013-10-07 2013-10-07 Refill nullFlavo Pachie S. f5e2aa 6a-a [facility] 15:42:00 15:42:00 lindsey Benton MD 7v5-3o21-j l PLLC p26-9xu888 [facility] dd13cc 2013-10-07 2013-10-07 Refill nullFlavo Pachie S. a336e7 4d-a [facility] 15:42:00 15:42:00 lindsey Benton MD 61c-4127-9 l PLLC 325-2j999l [facility] s1c859 2013-10-07 2013-10-07 Refill nullFlavo Pachie S. 1c6f93 2f-b [facility] 15:42:00 15:42:00 lindsey Benton MD 0ae-4ed7-9 l PLLC efa-1890af [facility] 74ecd6 2013-10-07 2013-10-07 Refill nullFlavo Pachie S. 98a8a5 39-5 [facility] 15:42:00 15:42:00 lindsey Benton MD 074-435e-a l PLLC n7g-p018qv [facility] re824o 2013-10-07 2013-10-07 Refill nullFlavo Pachie S. [id number] 13-0 [facility] 15:42:00 15:42:00 lindsey Benton MD 467-402c-b l PLLC 75a-339883 [facility] ea8adf 2013-10-07 2013-10-07 Refill nullFlavo Pachie S. k64914 05-7 [facility] 15:42:00 15:42:00 lindsey Benton MD 437-49f0-a l PLLC 562-0015c9 [facility] 52f459 2013-10-07 2013-10-07 Refill nullFlavo Pachie S. 841d7e 1b-d [facility] 15:42:00 15:42:00 lindsey Benton MD 0d9-6k53-m l PLLC 43d-78b0d3 [facility] 52b729 2013-10-07 2013-10-07 Refill nullFlavo Pachie S. c7l857 0b-e [facility] 15:42:00 15:42:00 lindsey Benton MD aa5-47ad-9 l PLLC 425-454f0b [facility] 51a65b 2013-10-07 2013-10-07 Refill nullFlavo Pachie S. 0822c0 e4-9 [facility] 15:42:00 15:42:00 lindsey Benton MD f9i-61xj-f l PLLC 4f5-095425 [facility] 017dd1 2013-10-07 2013-10-07 Refill nullFlavo Pachie S. 53d2be 15-c [facility] 15:42:00 15:42:00 lindsey Benton MD 4f1-1721-w l PLLC 43d-fb18ee [facility] 5cc16a 2013-10-07 2013-10-07 Refill nullFlavo Pachie S. b547e0 1c-f [facility] 15:42:00 15:42:00 lindsey Benton MD 32d-4c22-8 l PLLC 2db-n95774 [facility] 92669t 2013-10-07 2013-10-07 Refill nullFlavo Pachie S. h1662y 64-7 [facility] 15:42:00 15:42:00 lindsey Benton MD e7q-923i-g l PLLC 83e-7e0076 [facility] nn 08179y 2013-10-07 2013-10-07 Refill nullFlavo Pachie S. b97cd3 4b-1 [facility] 15:42:00 15:42:00 lindsey Benton MD r0f-5m44-6 l PLLC 7r9-482u17 [facility] 6u7848 2013-10-07 2013-10-07 Refill nullFlavo Pachie S. fac0ee c3-f [facility] 15:42:00 15:42:00 lindsey Benton MD o6a-6b14-o l PLLC l7n-3at5g7 [facility] k17398 2013-10-07 2013-10-07 Refill nullFlavo Pachie S. 5a58a7 0e-4 [facility] 15:42:00 15:42:00 lindsey Benton MD z67-3c73-7 l PLLC 746-778b00 [facility] b3fb44 2013-10-07 2013-10-07 Refill nullFlavo Pachie S. d862fa ce-e [facility] 15:42:00 15:42:00 lindsey Benton MD l06-7fv0-f l PLLC 55d-3wr482 [facility] 360155 3198-04-28 2013-10-07 Refill nullFlavo Pachie S. 3k233e 92-f [facility] 14:42:00 14:42:00 lindsey Benton MD 32d-45d2-8 l PLLC x81-pi3w01 [facility] j59820 2013-10-07 2013-10-07 Refill nullFlavo Pachie S. 1dee46 7c-5 [facility] 14:42:00 14:42:00 lindsey Benton MD 9ca-4f3c-8 l PLLC 86f-c79e3a [facility] 66212k 2013-10-07 2013-10-07 Refill nullFlavo Pachie S. 3f7e14 ff-1 [facility] 14:42:00 14:42:00 lindsey Benton MD 52c-4487-b l PLLC 3h8-37mg69 [facility] nn 3874fb 2013-10-07 2013-10-07 Refill nullFlavo Pachie S. c22b1c f8-1 [facility] 14:42:00 14:42:00 r Benton, MD 011-4ad9-9 l PLLC 017-o5d652 [facility] nn 2c4d1d 2013-10-07 2013-10-07 Refill nullFlavo Pachie S. fi3976 0b-3 [facility] 14:42:00 14:42:00 lindsey Benton MD 9z5-9k99-b l PLLC 4c3-i32trz [facility] nn 5cc5a3 2013-10-07 2013-10-07 Refill nullFlavo Pachie S. e9cfd8 14-3 [facility] 14:42:00 14:42:00 lindsey Benton MD 8c4-3699-c l PLLC 135-0b43a7 [facility] nn 69db12 2013-10-07 2013-10-07 Refill nullFlavo Pachie S. aad89b 95-e [facility] 14:42:00 14:42:00 lindsey Benton MD 6h1-9qb2-2 l PLLC ff8-a2de88 [facility] nn 74e44c 2013-10-07 2013-10-07 Refill nullFlavo Pachie S. 9ag675 ad-e [facility] 14:42:00 14:42:00 lindsey Benton MD h52-7xl6-w l PLLC 86c-7886c3 [facility] nn 618c79 2013-10-07 2013-10-07 Refill nullFlavo Pachie S. 3966f3 9c-9 [facility] 14:42:00 14:42:00 lindsey Benton MD 542-4d5b-b l PLLC q8b-uht450 [facility] nn w8r132 2013-10-07 2013-10-07 Refill nullFlavo Pachie S. b9aa25 30-e [facility] 14:42:00 14:42:00 lindsey Benton MD 494-4cdb-b l PLLC 8q4-5afu41 [facility] nn 7a7b58 2013-10-07 2013-10-07 Refill nullFlavo Pachie S. 8637c5 2f-7 [facility] 14:42:00 14:42:00 lindsey Benton MD 97b-48f3-b l PLLC ce7-745574 [facility] nn 15c1cd 2013-10-07 2013-10-07 Refill nullFlavo Pachie S. 985c1d 4d-a [facility] 14:42:00 14:42:00 lindsye Benton MD 3h0-2108-7 l PLLC 6t9-hc6350 [facility] nn 4it124 2013-10-07 2013-10-07 Refill nullFlavo Pachie S. d7bd1a b8-1 [facility] 14:42:00 14:42:00 lindsey Benton MD 090-402f-b l PLLC eea-88c1ef [facility] nn 416c37 2013-10-07 2013-10-07 Refill nullFlavo Pachie S. 21v176 aa-8 [facility] 14:42:00 14:42:00 lindsey Benton MD 05b-455f-8 l PLLC 23b-c682ae [facility] nn 08649j 2013-10-07 2013-10-07 Refill nullFlavo Pachie S. 36417h 60-8 [facility] 14:42:00 14:42:00 lindsey Benton MD 7e6-9z11-e l PLLC dd0-cac6c6 [facility] nn s3395r 2013-10-07 2013-10-07 Refill nullFlavo Pachie S. 140ed7 5c-d [facility] 14:42:00 14:42:00 lindsey Benton MD 1g8-36r6-n l PLLC eea-333cb0 [facility] nn 8f37e4 2013-10-07 2013-10-07 Refill nullFlavo Pachie S. [id number] 5e-b [facility] 14:42:00 14:42:00 lindsey Benton MD 4r3-3s10-5 l PLLC 5de-708889 [facility] nn 03ae25 2013-10-07 2013-10-07 Refill nullFlavo Pachie S. b990a3 2a-3 [facility] 14:42:00 14:42:00 lindsey Benton MD 449-497c-a l PLLC bff-8k7344 [facility] nn c1b66d 2013-10-07 2013-10-07 Refill nullFlavo Pachie S. f173d0 0a-5 [facility] 14:42:00 14:42:00 lindsey Benton MD 3cb-49a8-8 l PLLC 250-72a5b1 [facility] nn 96h893 2013-10-07 2013-10-07 Refill nullFlavo Pachie S. f16aed d6-7 [facility] 14:42:00 14:42:00 lindsey Benton MD 495-4222-9 l PLLC 5ec-ee15e6 [facility] nn 84w567 2013-10-07 2013-10-07 Outpatient Andreas S. Andreas S. 837 56 [facility] 09:42:00 09:42:00 MD Chetan Benton MD l PLLC PLLC [place] 2013-09-04 2013-09-04 Refill nullFlavo Pachie S. 567624 d4-8 [facility] 19:02:00 19:02:00 lindsey Benton MD h74-8624-e l PLLC 866-7765de [facility] nn 4ad10d 2013-09-04 2013-09-04 Refill nullFlavo Pachie S. 3b3f06 2a-e [facility] 19:02:00 19:02:00 lindsey Benton MD 43b-4dff-a l PLLC v50-u0fg3v [facility] nn 62bb9e 2013-09-04 2013-09-04 Refill nullFlavo Andreas S. y3i082 8e-1 [facility] 19:02:00 19:02:00 lindesy Benton MD 4ac-44fd-8 l PLLC cc8-1063d4 [facility] nn 530a2c 2013-09-04 2013-09-04 Refill nullFlavo Pachie S. 238b05 bd-6 [facility] 19:02:00 19:02:00 lindsey Benotn MD c97-1mxw-f l PLLC 430-4fdce2 [facility] nn 810a21 2013-09-04 2013-09-04 Refill nullFlavo Pachie S. aht511 27-3 [facility] 19:02:00 19:02:00 lindsey Benton MD c0h-0yir-e l PLLC 82a-4c93c0 [facility] nn 731ced 2013-09-04 2013-09-04 Refill nullFlavo Pachie S. h60105 40-6 [facility] 19:02:00 19:02:00 lindsey Benton MD 2d3-6s62-v l PLLC ca9-709e23 [facility] nn e7e67a 2013-09-04 2013-09-04 Refill nullFlavo Pachie S. z3e279 29-b [facility] 19:02:00 19:02:00 lindsey Benton MD 875-4d1e-9 l PLLC 398-1c96c1 [facility] nn b3970p 2013-09-04 2013-09-04 Refill nullFlavo Pachie S. 810144 f3-4 [facility] 19:02:00 19:02:00 lindsey Benton MD fe4-4119-8 l PLLC s0c-qjbm8c [facility] nn cdf4ea 2013-09-04 2013-09-04 Refill nullFlavo Pachie S. 6og248 35-7 [facility] 19:02:00 19:02:00 lindsey Benton MD ebd-488c-8 l PLLC d78-73h9h5 [facility] b1c59b 2013-09-04 2013-09-04 Refill nullFlavo Pachie S. r97789 b3-0 [facility] 19:02:00 19:02:00 lindsey Benton MD damaso-4d73-a l PLLC be9-7348f5 [facility] nn 272b0b 2013-09-04 2013-09-04 Refill nullFlavo Pachie S. 19767c 4e-2 [facility] 19:02:00 19:02:00 lindsey Benton MD 142-4dad-a l PLLC g44-71xu87 [facility] nn hb844w 2013-09-04 2013-09-04 Refill nullFlavo Pachie S. 9ebce1 6e-0 [facility] 19:02:00 19:02:00 lindsey Benton MD 230-47c1-b l PLLC 812-617673 [facility] nn 2f77ab 2013-09-04 2013-09-04 Refill nullFlavo Pachie S. 38m900 e8-a [facility] 19:02:00 19:02:00 lindsey Benton MD 51b-40a3-8 l PLLC 185-4425d6 [facility] qx2595 2013-09-04 2013-09-04 Refill nullFlavo Pachie S. b0edd4 d5-6 [facility] 19:02:00 19:02:00 lindsey Benton MD 1x7-965o-6 l PLLC r5l-fij02q [facility] nn 0587cb 2013-09-04 2013-09-04 Refill nullFlavo Pachie S. ri095j 16-9 [facility] 19:02:00 19:02:00 lindsey Benton MD ef6-4671-b l PLLC fd0-965f05 [place] nn 648fc6 2013-09-04 2013-09-04 Refill nullFlavo Pachie S. c3be63 75-4 [facility] 19:02:00 19:02:00 lindsey Benton MD k1k-8614-z l PLLC 116-5feae7 [facility] nn w8v067 2013-09-04 2013-09-04 Refill nullFlavo Pachie S. 6667d3 3d-c [facility] 18:02:00 18:02:00 lindsey Benton MD 666-4401-b l PLLC 1ba-094bf1 [place] nn [id number] 3371-03-26 2013-09-04 Refill nullFlavo Pachie S. cb10e7 8a-0 [facility] 18:02:00 18:02:00 lindsey Benton MD dc7-4ed1-a l PLLC 7a7-gn1o7o [facility] nn b4c1e9 2013-09-04 2013-09-04 Refill nullFlavo Pachie S. cd8aed 6f-b [facility] 18:02:00 18:02:00 lindsey Benton MD 491-48aa-b l PLLC 46c-3yh948 [facility] nn c45f6f 2013-09-04 2013-09-04 Refill nullFlavo Pachie S. 19e19e ce-a [facility] 18:02:00 18:02:00 lindsey Benton MD 308-4845-a l PLLC 6ed-af9c5b [place] nn 631f99 2013-09-04 2013-09-04 Refill nullFlavo Pachie S. 82ac17 ea-1 [facility] 18:02:00 18:02:00 lindsey Benton MD cda-49a9-9 l PLLC s22-6277u6 [facility] nn 0e8e87 2013-09-04 2013-09-04 Refill nullFlavo Pachie S. 496326 73-e [facility] 18:02:00 18:02:00 lindsey Benton MD 44f-4747-8 l PLLC cb4-6fd56c [facility] 9187f0 2013-09-04 2013-09-04 Refill nullFlavo Pachie S. 6aecca 7f-4 [facility] 18:02:00 18:02:00 lindsey Benton MD 074-4d20-a l PLLC 871-f23a6f [facility] 41d6af 2013-09-04 2013-09-04 Refill nullFlavo Pachie S. bb4a6d 57-3 [facility] 18:02:00 18:02:00 lindsey Benton MD h2b-0wp1-z l PLLC abd-t93708 [facility] 241ab1 2013-09-04 2013-09-04 Refill nullFlavo Pachie S. ac0db5 ba-f [facility] 18:02:00 18:02:00 lindsey Benton MD 2be-413c-9 l PLLC db9-3a12cb [facility] 6804a4 2013-09-04 2013-09-04 Refill nullFlavo Pachie S. 5d6e70 26-4 [facility] 18:02:00 18:02:00 lindsey Benton MD 868-424b-a l PLLC [id number] [facility] 0t808p 2013-09-04 2013-09-04 Refill nullFlavo Pachie S. 9436cd 9a-d [facility] 18:02:00 18:02:00 lindsey Benton MD 9k9-5452-2 l PLLC 9l8-92fa03 [facility] 0261f7 2013-09-04 2013-09-04 Refill nullFlavo Pachie S. dd0bf6 e7-0 [facility] 18:02:00 18:02:00 lindsey Benton MD 902-4c25-9 l PLLC [id number] [facility] nn 004aee 2013-09-04 2013-09-04 Refill nullFlavo Pachie S. 9zb768 dd-e [facility] 18:02:00 18:02:00 lindsey Benton MD 606-4afc-8 l PLLC [id number] [facility] b62ee5 2013-09-04 2013-09-04 Refill nullFlavo Pachie S. f632c4 19-3 [facility] 18:02:00 18:02:00 lindsey Benton MD 46b-4a1c-9 l PLLC 207-d561eb [facility] nn b4cd78 2013-09-04 2013-09-04 Refill nullFlavo Pachie S. cd2c4a 4a-0 [facility] 18:02:00 18:02:00 lindsey Benton MD 7g5-5457-6 l PLLC 050-97d18d [facility] nn l9f556 2013-09-04 2013-09-04 Refill nullFlavo Pachie S. 65fdf6 8d-a [facility] 18:02:00 18:02:00 lindsey Benton MD 1i5-159w-4 l PLLC 33c-6b9b07 [facility] nn 2v873s 2013-09-04 2013-09-04 Refill nullFlavo Pachie S. de0e84 e3-a [facility] 18:02:00 18:02:00 lindsey Benton MD 276-4ce9-b l PLLC 43b-db21ce [facility] nn bfd90e 2013-09-04 2013-09-04 Refill nullFlavo Pachie S. 39acfb 91-8 [facility] 18:02:00 18:02:00 lindsey Benton MD 5l4-5i0n-a l PLLC l3f-6162n5 [facility] nn f23aca 2013-09-04 2013-09-04 Refill nullFlavo Pachie S. 654ec2 43-8 [facility] 18:02:00 18:02:00 lindsey Benton MD p08-5759-1 l PLLC 791-6c6ae0 [place] nn [id number] 2363-03-26 2013-09-04 Refill nullFlavo Pachie S. 0d2e2f dc-a [facility] 18:02:00 18:02:00 lindsey Benton MD 82d-4b46-9 l PLLC rebecca-j74028 [facility] nn 4ba17a 2013-09-04 2013-09-04 Refill nullFlavo Pachie S. y7875r af-5 [facility] 18:02:00 18:02:00 lindsey Benton MD 0v3-566j-h l PLLC 20f-63cfae [facility] nn 0a4f7f 2013-09-04 2013-09-04 Outpatient Pachie S. Pachie S. 820 74 [facility] 13:02:00 13:02:00 MD Chetan Benton MD l PLLC PLLC [place] 2013-08-05 2013-08-05 refill nullFlavo Pachie S. 8aac17 1a-5 [facility] 16:00:00 16:00:00 lindsey Benton MD cfe-417f-a l PLLC 84b-3013a0 [facility] nn 1c1b69 2013-08-05 2013-08-05 refill nullFlavo Pachie S. 5d7c7c 53-f [facility] 16:00:00 16:00:00 lindsey Benton MD 158-4f5f-a l PLLC n4v-s56671 [facility] nn 404e62 2013-08-05 2013-08-05 refill nullFlavo Pachie S. 353d3d 0c-9 [facility] 16:00:00 16:00:00 lindsey Benton MD v04-73g5-y l PLLC s4x-7195pv [place] nn 0309be 2013-08-05 2013-08-05 refill nullFlavo Pachie S. 5932d8 07-b [facility] 16:00:00 16:00:00 lindsey Benton MD r31-1331-n l PLLC m35-5p3703 [facility] nn 56aa5d 2013-08-05 2013-08-05 refill nullFlavo Pachie S. 3b8f3a 0a-e [facility] 16:00:00 16:00:00 lindsey Benton MD v54-5496-6 l PLLC l64-n33p09 [facility] nn 5xd612 2013-08-05 2013-08-05 refill nullFlavo Pachie S. 2def1c ea-3 [facility] 16:00:00 16:00:00 lindsey Benton MD ebb-4d5b-a l PLLC 44a-d891a4 [facility] nn 77f3d2 2013-08-05 2013-08-05 refill nullFlavo Pachie S. cb6e72 87-d [facility] 16:00:00 16:00:00 lindsey Benton MD 921-4c23-a l PLLC 200-5ab8f8 [facility] nn 70f0de 2013-08-05 2013-08-05 refill nullFlavo Pachie S. 556b8b a8-b [facility] 16:00:00 16:00:00 lindsey Benton MD h05-6n97-h l PLLC d14-3248pu [facility] nn a9adab 2013-08-05 2013-08-05 refill nullFlavo Pachie S. 6724dd d1-f [facility] 16:00:00 16:00:00 lindsey Benton MD ee8-467f-a l PLLC 508-6237d7 [facility] nn 56e610 2013-08-05 2013-08-05 refill nullFlavo Pachie S. [id number] b3-4 [facility] 16:00:00 16:00:00 lindsey Benton MD ba8-4963-b l PLLC c32-8l09n1 [facility] nn 9c72b9 2013-08-05 2013-08-05 refill nullFlavo Pachie S. 141afa 40-2 [facility] 16:00:00 16:00:00 lindsey Benton MD bf8-48dd-8 l PLLC f0r-5x8580 [facility] nn 2a64e0 2013-08-05 2013-08-05 refill nullFlavo Pachie S. 885f2f e2-0 [facility] 16:00:00 16:00:00 lindsey Benton MD 565-4d60-a l PLLC [id number] [facility] nn a2ba5f 2013-08-05 2013-08-05 refill nullFlavo Pachie S. 94216x f5-8 Memoria 16:00:00 16:00:00 lindsey Benton MD cf0-4016-b l PLLC [id number] [facility] nn 464222 9302-02-24 2013-08-05 refill nullFlavo Pachie S. 57fce3 ac-f [facility] 16:00:00 16:00:00 lindsey Benton MD 85c-41c2-9 l PLLC [id number]-c97eb8 [facility] nn l1879s 2013-08-05 2013-08-05 refill nullFlavo Pachie S. b3773a f5-f [facility] 16:00:00 16:00:00 lindsey Benton MD n07-957u-b l PLLC ab0-8976b4 [facility] nn d57fcf 2013-08-05 2013-08-05 refill nullFlavo Pachie S. dc05a7 e0-d [facility] 16:00:00 16:00:00 lindsey Benton MD 6d3-7bd2-h l PLLC 626-bc3f2b [facility] c7e693 2013-08-05 2013-08-05 refill nullFlavo Pachie S. 9k355x 47-d [facility] 16:00:00 16:00:00 ilndsey Benton MD b5k-27yh-0 l PLLC q2u-g40354 [facility] nn 77d3db 2013-08-05 2013-08-05 refill nullFlavo Pachellen S. r98103 41-7 [facility]oria 15:00:00 15:00:00 lindsey Benton MD 573-494a-a l PLLC 020-9c2f6a [facility] nn 2c8e55 2013-08-05 2013-08-05 refill nullFlavo Pachellen S. x36529 9e-e [facility] 15:00:00 15:00:00 lindsey Benton MD v8q-8244-m l PLLC cc1-0bfc63 [facility] 7tp126 2013-08-05 2013-08-05 refill nullFlavo Pachellen S. f48ca1 3a-5 [facility]oria 15:00:00 15:00:00 lindsey Benton MD 503-4f0e-9 l PLLC ecc-d11f94 [facility] b752ee 2013-08-05 2013-08-05 refill nullFlavo Pachellen S. 9712e8 9e-d [facility]oria 15:00:00 15:00:00 lindsey Benton MD 7s3-2ri4-k l PLLC 44d-23abef [facility] f01f48 2013-08-05 2013-08-05 refill nullFlavo Pachellen S. dt934i 5b-b [facility] 15:00:00 15:00:00 lindsey Benton MD loraine-4ce1-a l PLLC u62-94elx3 [facility] nn 51dccd 2013-08-05 2013-08-05 refill nullFlavo Pachie S. h9d674 14-e [facility] 15:00:00 15:00:00 lindsey Benton MD 5o1-7co4-3 l PLLC 6s8-r9288u [facility] d240ba 2013-08-05 2013-08-05 refill nullFlavo Pachie S. c0fd84 b9-8 [facility]oria 15:00:00 15:00:00 lindsey Benton MD 407-4bf1-a l PLLC l86-n665r7 [facility] 146282 5983-02-24 2013-08-05 refill nullFlavo Pachie S. x56789 71-e [facility] 15:00:00 15:00:00 lindsey Benton MD 2w7-80b5-y l PLLC 7f1-y14923 [facility] 6g6224 2013-08-05 2013-08-05 refill nullFlavo Pachie S. aebaa4 36-1 [facility] 15:00:00 15:00:00 lindsey Benton MD x17-73a4-p l PLLC q46-788935 [facility] 334f4c 2013-08-05 2013-08-05 refill nullFlavo Pachie S. vj053c dd-3 [facility]oria 15:00:00 15:00:00 lindsey Benton MD 659-4f7d-8 l PLLC 167-571ee5 [facility] 0bfef7 2013-08-05 2013-08-05 refill nullFlavo Pachie S. f9cc24 36-f [facility] 15:00:00 15:00:00 lindsey Benton MD 347-4edf-9 l PLLC q74-34j749 [facility] e9fa11 2013-08-05 2013-08-05 refill nullFlavo Pachie S. 2vz949 79-5 [facility] 15:00:00 15:00:00 lindsey Benton MD m2a-0jo3-n l PLLC 00c-2ad2a9 [facility] a3f27a 2013-08-05 2013-08-05 refill nullFlavo Pachie S. 2jr885 cd-d Memoria 15:00:00 15:00:00 lindsey Benton MD g00-71v2-n l PLLC ff5-5z1142 [facility] jva779 2013-08-05 2013-08-05 refill nullFlavo Pachie S. 5c7283 d0-e [facility] 15:00:00 15:00:00 lindsey Benton MD 9da-42d9-a l PLLC 77a-7a6617 [facility] 6db0f4 2013-08-05 2013-08-05 refill nullFlavo Pachie S. 269009 a4-7 [facility] 15:00:00 15:00:00 lindsey Benton MD 9j8-2316-8 l PLLC q43-h36be4 [facility] r0663n 2013-08-05 2013-08-05 refill nullFlavo Pachie S. ye5651 09-d [facility] 15:00:00 15:00:00 lindsey Benton MD ff3-4933-b l PLLC 7cd-6h4055 [facility] r84746 2013-08-05 2013-08-05 refill nullFlavo Pachie S. 99f28a 0b-9 Memoria 15:00:00 15:00:00 lindsey Benton MD f14-0839-c l PLLC 02f-851d5a [facility] c044df 2013-08-05 2013-08-05 refill nullFlavo Pachie S. 3y1410 a1-5 [facility]oria 15:00:00 15:00:00 lindsey Benton MD 549-4afa-8 l PLLC ba6-1q5241 [facility] 742790 0416-02-24 2013-08-05 refill nullFlavo Pachie S. 7d4bc8 05-2 [facility] 15:00:00 15:00:00 lindsey Benton MD 980-498f-a l PLLC 41c-i74336 [facility] d42228 2013-08-05 2013-08-05 refill nullFlavo Pachie S. 752d81 b9-5 [facility] 15:00:00 15:00:00 lindsey Benton MD cfb-4cb5-a l PLLC 089-9264e9 [facility] f15d68 2013-08-05 2013-08-05 refill nullFlavo Pachie S. 8da8f0 0e-f [facility]oria 15:00:00 15:00:00 lindsey Benton MD 1o2-4751-h l PLLC 0bc-9hx945 [facility] 32ef09 2013-08-05 2013-08-05 Outpatient Pachie S. Pachie S. 803 33 Memoria 10:00:00 10:00:00 MD Chetan Benton MD l [facility] [place][note 2] Results Test Description Test Time Test Comments Results Result Comments Source Cyclosporine level 2020-11-27 15:04:00 Test Item Value Reference Range Interpretation Comme nts CYCLOSPORINE A TROUGH, BLOOD 104 mcg/L (test code = 5788666) Comment: (test code = No def initive therapeutic or 20121229) toxic ranges quintana ve beenestablished . Optimal blood drug leve ls are influencedby ty pe of transplant, pat ient response, time post-transplant , co-administrati on of other drugs, anddrug formulation. The following t rough ranges aresuggested gu idelines: Kidney Transpla ntation: 100-200 mcg/L Other Organ Transplant: 200 -300 mcg/L This test was p erformed as an immunoassay on a appsplit platLocal Matters m. Values obtained from d ifferent assay methods c annot be used interchangeably . YEHUDA (test code = YEHUDA) FASTING:NOFASTING: NO [facility] Etags2725-31-52 12:04:00 Test Item Value Reference Range Interpretation Comments Sodium (test code = 138 meq/L 558-965 8281-2) Potassium (test code = 4.9 meq/L 3.5-5.1 2823-3) Chloride (test code = 106 meq/L 98-107 2075-0) CO2 (test code = 24 meq/L 22-29 2028-9) BUN (test code = 13 mg/dL 7-21 3094-0) Creatinine (test code 1.01 mg/dL 0.57-1.25 = 2160-0) Glucose (test code = 117 mg/dL 70-105 H 2345-7) Calcium (test code = 9.3 mg/dL 8.4-10.2 83481-4) EGFR (test code = 64 mL/min/1.73 [place] [address]-5) NOT ACCURATE CREATININE CLEARANCE IN PREDICTING GLOMERULAR FILTRATION RATE . ESTIMATED GFR I S NOT APPLICABLE FOR DIALYSIS PATIENTS. YEHUDA (test code = YEHUDA) Quality System Manager ID - KAY M Lab Interpretation Abnormal (test code = 58954-2) [facility] [id number] 12:04:00 Test Item Value Reference Range Interpretation Comments Protein, Total (test 7.1 See_Comment [Autom ated code = 2885-2) message] The system which generated this result transmit ashok reference range : 6.0 - 8.3 gm/dL . The reference range was not u sed to interpret th is result as normal/abnormal . Albumin (test code = 4.1 g/dL 3.5-5 85640-7) Total Bilirubin (test 0.3 mg/dL 0.2-1.2 code = 1975-2) Bilirubin, Direct 0.2 mg/dL 0.1-0.5 (test code = 1968-7) Alkaline Phosphatase 204 U/L 40-150 H (test code = 6768-6) AST (test code = 20 U/L 5-34 1920-8) ALT (test code = 11 U/L 6-55 1742-6) YEHUDA (test code = YEHUDA) Quality System Manager ID - KAY [employer] Lab Interpretation Abnormal (test code = 89457-9) [facility], quantitative, [id number] 12:04:00 Test Item Value Reference Range Interpretation Comments hCG Quant (test code <1 See_Comment [Autom ated = 89702-3) message] The system which generated this result transmitted reference range : 0 - 10 mIU/mL. The reference range was not used to interpr et this result as normal/abnormal . YEHUDA (test code = YEHUDA) Non- Females: <10 mIU/mL Females: Gestation Age Reference Range(mIU/mL) 0.2-1 Week 5-50 1-2 Weeks 50-500 2-3 Weeks 100-5,000 3-4 Weeks 500-10,000 4-5 Weeks 1,000-50,000 5-6 Weeks 10,000-100,000 6-8 Weeks 15,000-200,000 2-3 Months 10,000-100,000 Quality System Manager ID - KAY M Lab Interpretation Normal (test code = 15276-6) [facility], [id number] 12:04:00 Test Item Value Reference Range Interpretation Comments GONADOTROPIN, CHORIONIC (HCG) QUANT < mIU/mL 0-10 (BEAKER) (test code = 649) Non- Females: <10 mIU/mL Females: Gestation Age Reference Range(mIU/mL) 0.2-1 Week 5-50 1-2 Weeks 50-500 2-3 Weeks 100-5,000 3-4Weeks 500-10,000 4-5 Weeks 1,000-50,000 5-6 Weeks 10,000-100,000 6-8 Weeks 15,000-200,000 2-3 Months 10,000-100,000 Quality System Manager ID - KAY M BASIC METABOLIC [id number] 12:04:00 Test Item Value Reference Range Interpretation Comments SODIUM (BEAKER) 138 meq/L 136-145 (test code = 381) POTASSIUM (BEAKER) 4.9 meq/L 3.5-5.1 (test code = 379) CHLORIDE (BEAKER) 106 meq/L 98-107 (test code = 382) CO2 (BEAKER) (test 24 meq/L 22-29 code = 355) BLOOD UREA NITROGEN 13 mg/dL 7-21 (BEAKER) (test code = 354) CREATININE (BEAKER) 1.01 mg/dL 0.57-1.25 (test code = 358) GLUCOSE RANDOM 117 mg/dL 70-105 H (BEAKER) (test code = 652) CALCIUM (BEAKER) 9.3 mg/dL 8.4-10.2 (test code = 697) EGFR (BEAKER) (test 64 mL/min/1.73 ESTIMA ASHOK GFR IS code = 1092) sq m NOT ACCURATE CREATININE CLEARANCE IN PREDICTING GLOMERULAR FILTRATION RATE . ESTIMATED GFR I S NOT APPLICABLE FOR DIALYSIS PATIEN TS. Quality System Manager ID - KAY EPATIC FUNCTION [id number] 12:04:00 Test Item Value Reference Range Interpretation Comments TOTAL PROTEIN (BEAKER) (test code = 7.1 gm/dL 6.0-8.3 770) ALBUMIN (BEAKER) (test code = 1145) 4.1 g/dL 3.5-5.0 BILIRUBIN TOTAL (BEAKER) (test code 0.3 mg/dL 0.2-1.2 = 377) BILIRUBIN DIRECT (BEAKER) (test 0.2 mg/dL 0.1-0.5 code = 706) ALKALINE PHOSPHATASE (BEAKER) (test 204 U/L 40-150 H code = 346) AST (SGOT) (BEAKER) (test code = 20 U/L 5-34 353) ALT (SGPT) (BEAKER) (test code = 11 U/L 6-55 347) Quality System Manager ID - KAY MPro-time/[id number] 11:50:00 Test Item Value Reference Interpretation Comments Range Protime (test code = 13.3 See_Comment [Autom ated 5902-2) message] The system which generated this result transmitted reference range : 11.9 - 14.2 seconds. The reference range was not used to interpret this result as normal/abnormal . INR (test code = 1.04 See_Comment [Automated 6301-6) message] The system which generated this result transmitted reference range : <=5.90. The reference range was not used to interpret this result as normal/abnormal . YEHUDA (test code = RECOMMENDED YEHUDA) COUMADIN/WARFARIN INR THERAPY RANGESSTANDARD DOSE: 2.0 - 3.0 Includes: PROPHYLAXIS for venous thrombosis, systemic embolization; TREATMENT for venous thrombosis and/or pulmonary embolus.HIGH RISK: Target INR is 2.5-3.5 for patients with mechanical heart valves. Lab Interpretation Normal (test code = 27216-0) [facility] + automated [id number] 11:50:00 Test Item Value Reference Range Interpretation Comments WBC (test code = 6690-2) 3.5 See_Comment [A utomated message] The system [employer] generated this result transmitted ref erence range: 3.5 - 10 .5 K/L. The refe rence range was not u sed to interpret this result as normal/abnor mal. RBC (test code = 789-8) 4.02 See_Comment [Au tomated message] The system [employer] generated this result transmitted ref erence range: 3.93 - 5 .22 M/L. The refe rence range was not u sed to interpret this result as normal/abnor mal. MCHC (test code = 786-4) 28.0 See_Comment L [A utomated message] The system [employer] generated this result transmitted ref erence range: 32.2 - 3 5.5 GM/DL. The refe rence range was not u sed to interpret this result as normal/abnor mal. Hematocrit (test code = 30.7 % 34.1-44.9 L 4544-3) MCV (test code = 787-2) 76.4 fL 79.4-94.8 L MCH (test code = 785-6) 21.4 pg 25.6-32.2 L RDW (test code = 788-0) 21.9 % 11.7-14.4 H Platelets (test code = 217 See_Comment [Aut omated message] 777-3) The system [employer] generated this result transmitted ref erence range: 150 - 45 0 K/CU MM. The referen ce range was not u sed to interpret this result as normal/abnor mal. MPV (test code = 9.2 fL 9.4-12.3 L 48331-8) nRBC (test code = 413) 0 See_Comment [Aut omated message] The system [employer] generated this result transmitted ref erence range: 0 - 0 /1 00 WBC. The refere nce range was not u sed to interpret this result as normal/abnor mal. % Neutros (test code = 52 % 429) % Lymphs (test code = 35 % 430) % Monos (test code = 7 % 431) % Eos (test code = 432) 5 % % Baso (test code = 437) 0 % # Neutros (test code = 1.83 See_Comment [Aut omated message] 670) The system [employer] generated this result transmitted ref erence range: 1.56 - 6 .13 K/L. The refe rence range was not u sed to interpret this result as normal/abnor mal. # Lymphs (test code = 1.21 See_Comment [Auto mated message] 414) The system [employer] generated this result transmitted ref erence range: 1.18 - 3 .74 K/L. The refe rence range was not u sed to interpret this result as normal/abnor mal. # Monos (test code = 0.25 See_Comment [Autom ated message] 415) The system [employer] generated this result transmitted ref erence range: 0.24 - 0 .36 K/L. The refe rence range was not u sed to interpret this result as normal/abnor mal. # Eos (test code = 416) 0.18 See_Comment [Au tomated message] The system whic h generated this result transmitted ref erence range: 0.04 - 0 .36 K/L. The refe rence range was not u sed to interpret this result as normal/abnor mal. # Baso (test code = 417) 0.01 See_Comment [A utomated message] The system [employer] generated this result transmitted ref erence range: 0.01 - 0 .08 K/L. The refe rence range was not u sed to interpret this result as normal/abnor mal. Immature 1 % 0-1 Granulocytes-Relative (test code = 2801) Lab Interpretation (test Abnormal code = 10735-3) [facility] W/PLT COUNT & AUTO [id number] 11:50:00 Test Item Value Reference Range Interpretation Comments WHITE BLOOD CELL COUNT (BEAKER) 3.5 K/ L 3.5-10.5 (test code = 775) RED BLOOD CELL COUNT (BEAKER) 4.02 M/ L 3.93-5.22 (test code = 761) HEMOGLOBIN (BEAKER) (test code = 8.6 GM/DL 11.2-15.7 L 410) HEMATOCRIT (BEAKER) (test code = 30.7 % 34.1-44.9 L 411) MEAN CORPUSCULAR VOLUME (BEAKER) 76.4 fL 79.4-94.8 L (test code = 753) MEAN CORPUSCULAR HEMOGLOBIN 21.4 pg 25.6-32.2 L (BEAKER) (test code = 751) MEAN CORPUSCULAR HEMOGLOBIN CONC 28.0 GM/DL 32.2-35.5 L (BEAKER) (test code = 752) RED CELL DISTRIBUTION WIDTH 21.9 % 11.7-14.4 H (BEAKER) (test code = 412) PLATELET COUNT (BEAKER) (test 217 K/CU MM 150-450 code = 756) MEAN PLATELET VOLUME (BEAKER) 9.2 fL 9.4-12.3 L (test code = 754) NUCLEATED RED BLOOD CELLS 0 /100 WBC 0-0 (BEAKER) (test code = 413) NEUTROPHILS RELATIVE PERCENT 52 % (BEAKER) (test code = 429) LYMPHOCYTES RELATIVE PERCENT 35 % (BEAKER) (test code = 430) MONOCYTES RELATIVE PERCENT 7 % (BEAKER) (test code = 431) EOSINOPHILS RELATIVE PERCENT 5 % (BEAKER) (test code = 432) BASOPHILS RELATIVE PERCENT 0 % (BEAKER) (test code = 437) NEUTROPHILS ABSOLUTE COUNT 1.83 K/ L 1.56-6.13 (BEAKER) (test code = 670) LYMPHOCYTES ABSOLUTE COUNT 1.21 K/ L 1.18-3.74 (BEAKER) (test code = 414) MONOCYTES ABSOLUTE COUNT (BEAKER) 0.25 K/ L 0.24-0.36 (test code = 415) EOSINOPHILS ABSOLUTE COUNT 0.18 K/ L 0.04-0.36 (BEAKER) (test code = 416) BASOPHILS ABSOLUTE COUNT (BEAKER) 0.01 K/ L 0.01-0.08 (test code = 417) IMMATURE GRANULOCYTES-RELATIVE 1 % 0-1 PERCENT (BEAKER) (test code = 2801) PROTHROMBIN TIME/[id number] 11:50:00 Test Item Value Reference Range Interpretation Comments PROTIME (BEAKER) 13.3 seconds 11.9-14.2 (test code = 759) INR (BEAKER) (test 1.04 See_Comment [Automat ed message] code = 370) The system [employer] generated this result transmitted ref erence range: <=5.90. The reference range was not used to int erpret this result as normal/abnormal . RECOMMENDED COUMADIN/WARFARIN INR THERAPY RANGESSTANDARD DOSE: 2.0 - 3.0 Includes: PROPHYLAXIS forvenous thrombosis, systemic embolization; TREATMENT for venous thrombosis and/or pulmonary embolus.HIGH RISK: Target INR is 2.5-3.5 for patients with mechanical heart valves.[id number] 09:29:00 Test Item Value Reference Interpretation Comments Range Zinc (test code = 55 See_Comment L This test was 8488255) developed and i ts analytical performance characteristics have been determined by [employer]. It has not been cleared or appr grey by theFDA. This assay has been validated pursu ant to the CLIA regulations and is used for clinic al purposes. [Auto mated message] The sy stem which generated this result transmit ashok reference range : 60 - 130 mcg/dL. T he reference range was not used to interpret this result as normal/abnormal . YEHUDA (test code = Performing Lab YEHUDA) *ROSANGELA [facility], [address] [place] [id number] Clarence Mitchell MD Lab Interpretation Abnormal (test code = 54918-9) [facility], [id number] 10:50:00 Test Item Value Reference Range Interpretation Comments HSV, PCR (test code = NEGATIVE NEGATIVE 83304-1) YEHUDA (test code = YEHUDA) Herpes Simplex Virus (HSV) not detected. TEST PERFORMED BY [facility] Lab Interpretation (test Normal code = 27644-1) [facility], [id number] 10:50:00 Test Item Value Reference Range Interpretation Comments HSV BY PCR (BEAKER) (test code = NEGATIVE NEGATIVE 334) Herpes Simplex Virus (HSV) not detected.TEST PERFORMED BY [facility] Tissue [id number] 11:45:00 Test Item Value Reference Range Interpretation Comments Case Report (test Surgical Pathology Report code = 104) Case: [id number] Authorizing Provider: Jose Roberto Ochoa Collected: 09/11/2020 09:24 AM MD Dmitry Ordering Location: [address] Received: 09/11/2020 01:14 PM Service Pathologist: Trini Delgadillo MD Specimen: Gastric, GASTROJEJUNOSTOMY ULCER BX DIAGNOSIS (test code v6kngPZbEHDcy0lhWOXraOWdH = 3220) zEwMzNcZnRuYmpcdWMxIHtccn RmMVxlcGljOTIwMlxhbnNpXHN kkHZoY6TfxcilWQtiQP4wOM5e jFmyqCMadJJgHXLxPdZhy9rsd 843sBAls2rmLIVRpjjnmVd5lB kfT92gs3Y9OfqcK73bbHGiHMe xeCYtzanxlbNaGXnZA6ELO6cB RoQTH0YCK78OQHQZB7AQPACDE J1YV5z8SDEoniJoHO1eW3MFLF TDJL6BEURTLY5ZRRLGFqTXYO1 NL7XFUkLZWWLNKXGRLTZRUZqN XjbTZJ2HSBkKYlSCJwCnQe5BW DsgHQHUS6kRUsokFWRuRNIxEL 7ZN0DYOMFTXYRXCqWVKTqQH81 APPSJBVCkFCpUC5NWYSNAKDdR KwVVSG4iL2VNYaUCJJCZDDmLZ TZdpyVzKV9uZdHVXTYSPmPuNk 9QMM0GZZyJRiSEZ2cqfPElJPT paf59KBU9TqElm5J1ABH7LSLz CFXli3qvNFJmcBIzRiRpQbAiU oQtTxxeaMHuGMHqKdUpf4vuk5 29xKQvq9zdKFUxSqP7iVUbYNT cgKWrB628QMGqKFukm7zjl5Hl NZNclBDds2Y3WHNVeczgvAl5w YahF38dj8D5EtqkA2rhLKCiCS CqS3QnFY1hBOKcIna4QGC0MKT 9VMWbJBJeJ4WiAH9sXOTgtNAw AEx7e5estBgpYCPxGVC4t3zlK XlztdTkNS5rsm1okNk0a7qlsd PpNIGxPYDfqTABZJGrB4CbyWb eIb5xiRr7hOyzAyrjYQL8Bhn8 WF3wib67eou2lJqzZUPevejjM nD1IOhvFUFnnqhvWOy7DBddHA XgaXW1HJSahJCcZ9IgFRGaAD2 vwww0WOI1ZPffDJUmPmU0IYXk nTBqOCJrnZeiQFbub161WBT4P gRwPS5wW7Onk6V9iH6wbHIqZG CpsVOtVxBiZSHcmf2wfBEgOKb to7PjMPN2meW2zEOppXJnFEXi YsT5MQcfDS2glc52LYJwLDN7n g4lrHXbqTlqovHkeOSqRRkuQ5 NzFAPgd275ATMuZ6AtZOMaf3A 9zaIaCmDzIARcnMA7hrJ1ZIFv PA6mdmxin6tpDRvqSJupYRQhd yC2ktJ7LDRpmWLdU3EreV5zNW XcZY5vzlvvu3hqIEM0PXozXUV tBYA0TqBhCDNfr4Zchbv3UoZv f7EhtKAdYZtjD41zs909JKLul eNmA8cnrUVpbewraXEzwzgpKM afvvT4EIJeQFiifccvWEKaVOy bY9qeAiDdRXZedPbbHKthy5Un OTMzWMZcNyNloWMyVPQjLhv5I NZefCJxCZCnIrZlN6maultmXt QKYSZia5yfQ3vnqHLTkIVbX5L gUGhvbmUgTGluZTogODMyLTM1 OX52UCA7KBWmod98 CPT Code(s) (test v5cuuBRtQHVsrAJ4MsNbSGXla code = 3357) 8wqi0TmlJNdxGCwPXfwgPBwhs Oduc36qVP6eZ22PR7cMCTqYkD 2NDCfxeX0Qdk0NOCqNBCwbANp V480p9dys9lzhgYhsTT6yNzpO XJkXHBsYWluXGZzMjAgODgzMD JxmXFbIEl5JpJiTTNohe8= CLINICAL HISTORY u4bzyVKnUCNmlWC6KaLrTEFgg (test code = 3356) 7mlb2UayZYbzDThYHrsuPOltg Lmva22lXI3zD01FK8yFQJwFqO 8EWPjnuU8Ixd3QCIjGWSvmDBp M885b7maq8jqwtBlmOR5mFfwX CTkJRNhHZjpECHvBiRzW3woPn xFRURccGFyfQ== SPECIMEN SOURCE h9iwcWPxRSQexAW7JmIcGILsb (test code = 3377) 7ccc1CjfHTwzVBbNHphaYGjgu Dpud66aJC5rO25DQ6wDANbXqW 7ZDFavnZ9Zsl9SDIkBBVrrUNr Y816g4fcq7omnsWnqLZ4pSjiA PLtDIObFSkaHQGkJnMfK1ZjpO XpM5acMAE8 GROSS DESCRIPTION l5eoeAQvLQIieMDzJkXrDUEkM (test code = 3366) VIjf5czDFSatIMcRyGhAqDwTy EjNvdawIVwHQIsVrHup5ike93 3oXHco7vtYZSdYcY6kVMkNYKp zOIdK676z6wyq0rytpJfuOE3X UMeIUJ2UCcpktRjllA2HPtjoQ SqAdC1SWfeajWxECyiyzXnryD iMis1ALSnP240SPN0oNphg7vo PDQ5HHEcJHVdIlUaBt3seWMhY 046ZWOrYPSPIOKzuQl0UDKixg YzdrIpjRKZe687Z306b9ylBSH skmDpxZmEijski2wnS669DDSt tJSnemWqMwLbVSEuiRNrtCX9C KGbFU6brlosOlHsTT0bnfdvFx UrDH2qykk3PuNsUC6ovisnIkB dJZgfICIuygefXHKor3Faapqq KY4hS9Pxf7R6lE3lcTKsYZAzw RRbQiJgKIGpvy4daCEcMUvso4 OyQJC0gmQ4mMZtoDFxUZDiVQ0 8Yaymf6CtZcweYTM1ZCPdwtOk x9Gqq1lhCtXpdgCfK1vbQ0PsV KHcPSQbXPYoCwQnesQhq8Gme5 FzuMYskOz6y4exKVAtZOZypXv ul6igVWD5BTLuQ6I3yCUrz4ai OEbzFGRncFT8qmnqBSlfRVTew yT4ehzsYNysFBSzaSK3jwrhBA xwYYYmVgX1zxniPRtpCLUtDBT 0QLbsb181MWG3RZcaTrcxORwr XHBnbmNvbnRccGduZGVjXHBsY WluXHBsYWluXGYwXGZzMjRccW zkpYptjI4qUlObSlTiTSrsYY8 vISCwI6xzcQKbEQIaOOKhV8nl CoMabT0fxPwnKGyzdnSaDVBjL 6QahsVwRZfcAFSvwx0shYptMK xhYmVsZWQgdGhlIHBhdGllbnQ jgjUrNH9bDAGmK3Ser7Jvv02t tfMtIjSlSMBvWXLiW0KgnVIrc kFgfK8vs4FepRwvbUcvCRHgWQ fsGZUmRE2gOUsdVO5zUFhkPF2 dQRYnATLnlr3bzS3hXUKev8Z0 VRNmibFedVYanVV4wVxrfWPyh kWgnRl3MZTqFPYhlvGty4QptV q9aXPfMEklCAVezO6zpF9dRDL uXHBhclxwYXIgUGlsYXIgQXJn dWVsbGVzLCBQQSwgSFQgKEFTQ 4NkXLKxoh8= MICROSCOPIC s1oydKErDTKftMG5YwElAMAus DESCRIPTION (test 4ffz3UgbVOdiPIhCFcnuZFtvm code = 3371) Acoo07vTC8pR27WB0hOBRqMpQ 2PMNgcsF0Bcn6CMEoGISjuIEm X465k0knf9axfmCvsNZ4aDqxI XJkXHBsYWluXGZzMjAgUGVyZm 3ibNCfZFRpcj9= SPECIAL STUDIES f2xwaCAxCWGuiJG8VcAhFFWud (test code = 3376) 9maa9XwuBJgnFRjUSrqrUCvjf Detn43sRP2wC79QN5gLPRaZdS 1VZRbcyG7Ozp3KKEdUHKldTJq Y045ZDNxUNLtsQlbbmi7wJ81Q VBehA4pqTVoVIh0TOEeqcXquO ptmZ8oEqRcHrLbYsCMdPJvcW0 4RVHxmuW9BVIxc46vz7OgbAzx wkGwYCBvJDudM7g0EWOyDGUyP YU4s0Cdq6FcvX6dzR9rlIgxxN 3zuEVuqEC7hbsmz7Gpp1VyX4f hbCBzdGFpbnMuXHBhciBXQVJU XCnIKHFTBXUPOLjuTUJlU16fd HJvbCBTbGlkZXMgRXhhbWluZW N0NWTWzc8vu7OrDBSktx55gaL jq6SemRc8OGZcv814lv9choU8 VJYwZRT9OBj4MOIrFCHlnM9iW nA5dEMuJCFvTAE5XMD0UFNsd8 J3HT2yFWUrMJDpAUTlzrRaj9u rd3tuSVDwPFY6amCjkI3zD4Ip JMWni7HrwPpyCLAmcEyxpcIfV YBogCXyOBSowZ79RNFcwAMswA YhJNUdLPY2TUsgdC6dYmCLppI vkn9axMQeo5EueGp8AIUpfhVd jhJjKLYxjpGsG54qdGUsrBRhs 2hlbiBhdmFpbGFibGUgYXJlIG P0MJx3VREdXXsaOGLvGHytUBM hBP4noK3gsWylcX1dvTXsfYF1 ziqahTFaiL8oN4LdIJTpn6Ohf ewaa1RbPVSoqbUyfj4sKEHgqN RHVLuqy6KwR3YpNKe4w9XuxNt uOXywFJt3ZqZxYWGxvZQliYKI SV62MKWbQLXtlIyiyN6ojCPWC KMmbqU4f2A2HTclFKKpZEa1HK vyejIqOFXhnO6hHQVsBZ2gNEe 1zgSjSYQab1VqRR3wDMBcrQQh AXL3EUVxo9TdK8May3AvAOPtW PGjqu8wkqSbElZRzAUyTKXigy 06OPBdUK7iP8nqZRPsSFOdsrB gvWMgk1XbESGhrQB3yCWcSE9V TvXGx55wYKYqCIKNswKlJDDml VjghTX4onK4cX2vTtNAtLNkRn ZCSGhxcwIgUCLmap1erqOoCNZ gXISlv3YljUCsiCCqypIwB9Rk p1FyZRDfwy66PIvucSJpca00D I3dT4Cbm3AkxR9eZYohWOHzc1 TpjUXzbBUmJESog6WzL5uyglw aXNokiZFfgE1sUFCjENv6UDCj a2RgAYUfr4NiFcTywzMuCDXjU ISmOUJpoP39UOS9hIkpcVyllc JxJT9bHVMqqmHuUBVySDQkoV1 zMDwuxxUsWYPvzkQ1m3F1MAgt PQZvxfLpSowaQXW2hpOcljG2c WPyP7uhrhpsZEsaTIAew3BgaR 4nkFWHfDRec2QyhHNoeJVNoCR sTU2djaWqAZ6aQGZ7NEvqJWEN COBcXGfzSRNlEVJ1VLkrTskwI WY3lkKkDUUtk7IlUSpxM4qwB4 8wtFomyKr2dLBfvNumeOOimDF wBRHmaiY7h9U8VAZzx8Dxhtgq XHBhcn0= [id number] 11:45:00Surgical Pathology Report Case: [id number] Authorizing Provider: Jose Roberto Ochoa Collected: 09/11/2020 09:24 AM MD Dmitry OrderingLocation: [facility] [address] Received: 09/11/2020 01:14 PM Service Pathologist: Trini Delgadillo MD Specimen: Gastric, GASTROJEJUNOSTOMY ULCER BX GASTROJEJUNOSTOMY ULCER, BIOPSY: - GASTROINTESTINAL ANASTOMOSIS WITH ACUTE INFLAMMATION AND FOCAL EROSION - NEGATIVE FOR HELICOBACTER PYLORI BY WARTHIN STARRY STAIN - NEGATIVE FOR MALIGNANCY Signing Pathologist DirectPhone Line: [phone] signed by Trini Delgadillo MD on 09/12/2020 at 11:44 [id number] BLEEDGastricReceived in formalin labeled the patient's name, accession number and "gastrojejunostomy ulcer" is a 0.3 x 0.2 x 0.2 cm ghosh-pink tissue fragment which is filtered and submittedin toto in A1.AYAAN Valente, HT (ASCP)PerformedThe interpretation of this case included the use of immunohistochemistry or special stains.WARTHIN-STARRYControl Slides Examined: In-house known positive controls were evaluated along with the test tissue. These control slides run alongside of thepatients sample show appropriate staining. Internal positive and negative controls when available are evaluated Immunohistochemistry technical testing was performed at [facility],Pathology Laboratory where it was developed [...] qualified to perform high complexity clinical laboratory testing.CYCLOSPORINE [id number] 08:17:00 Test Item Value Reference Range Interpretation Comments CYCLOSPORINE BLOOD 58 ng/mL <400 Test perf ormed on Elastra (Zipidee) (test code = Clive ect Immunoassay 672) system with Chemiluminescen t Microparticle Immunoassay (CM IA) technology. Quality System Manager ID - AAHAMIDVitamin D, 42-[id number] 04:53:00 Test Item Value Reference Range Interpretation Comments Vitamin D 25-Hydroxy 19.7 ng/mL 6.6-49.9 (test code = 2764) YEHUDA (test code = YEHUDA) Effective 03/22/2017: Reference Range ChangeNew: 6.6-49.9 ng/mL Previous: 13.0-47.8 ng/mL Recommended Vitamin D Target Range: 30.0-40.0 ng/mLOperator ID - DB Lab Interpretation (test Normal code = 75493-0) [facility], 16-[id number] 04:53:00 Test Item Value Reference Range Interpretation Comments VITAMIN D 25-OH (BEAKER) (test 19.7 ng/mL 6.6-49.9 code = 2764) Effective 03/22/2017: Reference Range ChangeNew: 6.6-49.9 ng/mL Previous: 13.0-47.8 ng/mLRecommended Vitamin D Target Range: 30.0-40.0 ng/mLOperator ID - DBPOC-Glucose [id number] 21:59:00 Test Item Value Reference Range Interpretation Comments POC-Glucose Meter (test 99 mg/dL 70-110 : TE STED AT [facility] code = 1538) 67[address] [facility], 770 30: Quality System Manager/Techni alonso ID = [id number] for BANGURA, EMMANUEL Lab Interpretation (test Normal code = 56597-9) [facility] HospitalPO[facility]-GLUCOSE [id number] 21:59:00 Test Item Value Reference Range Interpretation Comments POC-GLUCOSE METER 99 mg/dL 70-110 : [facility] (BEAKER) (test code = [facility], 1538) [address]: Quality System Manager/Techni alonso ID = [id number] for BANGURA EMMANUEL POCT-GLUCOSE [id number] 19:06:00 Test Item Value Reference Range Interpretation Comments POC-GLUCOSE METER 183 mg/dL 70-110 H : [facility] (BEAKER) (test code = [facility], 1538) [address]: Quality System Manager/Techni alonso ID = [id number] for Ra pacebasil Marion Gamma Glutamyl Transferase (GGT)2020-09-11 12:24:00 Test Item Value Reference Range Interpretation Comments GGT (test code = 2324-2) 33 U/L 9-64 YEHUDA (test code = YEHUDA) Quality System Manager ID - LINDA C Lab Interpretation (test Normal code = 04202-5) [facility] HospitalGAMMA GLUTAMYL TRANSFERASE (GGT)2020-09-11 12:24:00 Test Item Value Reference Range Interpretation Comments GAMMA GLUTAMYL TRANSFERASE (BEAKER) 33 U/L 9-64 (test code = 364) Quality System Manager ID - LINAD CCT, PELVIS, WO [id number] 08:55:00Referring; Jacob Frazier MD Fall, left hip pain. Non diagnostic xray pelvisUnlisted Reason for Exam - Click Yes and Enter Reason Below->NoWill this procedure require oral contrast?->NoCH[facility] : 1990 Sex: FFINAL [...] MDReport Verified Date/Time: 09/11/2020 08:55:18 Reading Location: [address] Ortho Consult Reading Room [facility] pelvis without IV [id number] 08:55:00Interface, External Ris In - 09/11/2020 8:58 [...] MDReport Verified Date/Time: 09/11/2020 08:55:18 Reading Location: [facility] C0X Ortho Consult Reading [facility]CYCL[facility] [id number] 08:15:00 Test Item Value Reference Range Interpretation Comments CYCLOSPORINE BLOOD 111 ng/mL <400 Test perf ormed on Urbina (BEAKER) (test code Architec t Immunoassay = 672) system with Chemiluminescen t Microparticle Immunoassay (CM IA) technology. Quality System Manager ID - AAHAMIDHEPATIC FUNCTION [id number] 06:48:00 Test Item Value Reference Range Interpretation [...] (SGOT) (BEAKER) (test code = 28 U/L 5-34 353) ALT (SGPT) (BEAKER) (test code = 23 U/L 6-55 347) Quality System Manager ID - MSTfxdaqewz4606-05-66 06:47:00 Test Item Value Reference Range Interpretation Comments Magnesium (test code = 1.8 mg/dL 1.6-2.6 79806-5) YEHUDA (test code = YEHUDA) Quality System Manager ID - DB Lab Interpretation (test Normal code = 99167-5) [facility] HospitalPhosphorus2021-04-02 06:47:00 Test Item Value Reference Range Interpretation Comments Phosphorus (test code = 4.3 mg/dL 2.3-4.7 2777-1) YEHUDA (test code = YEHUDA) Quality System Manager ID - DB Lab Interpretation (test Normal code = 68498-8) [facility] HospitalBASIC METABOLIC [id number] 06:47:00 Test Item Value Reference Range Interpretation Comments SODIUM (BEAKER) 138 meq/L 136-145 (test code = 381) POTASSIUM (BEAKER) 4.1 meq/L 3.5-5.1 (test code = 379) CHLORIDE (BEAKER) 106 meq/L 98-107 (test code = 382) CO2 (BEAKER) (test 22 meq/L 22-29 code = 355) BLOOD UREA NITROGEN 15 mg/dL 7-21 (BEAKER) (test code = 354) [...] S NOT APPLICABLE FOR DIALYSIS PATIEN TS. Quality System Manager ID - YETIORRQKYU2539-67-02 06:47:00 Test Item Value Reference Range Interpretation Comments MAGNESIUM (BEAKER) (test code = 1.8 mg/dL 1.6-2.6 627) Quality System Manager ID - [id number] 06:47:00 Test Item Value Reference Range Interpretation Comments PHOSPHORUS (BEAKER) (test code = 4.3 mg/dL 2.3-4.7 604) Quality System Manager ID - DBType and screen, [id number] 06:22:00 Test Item Value Reference Range Interpretation Comments ABO/RH AUTOMATED (BEAKER) (test B POSITIVE code = 2260) Ab Scrn (test code = 890-4) NEGATIVE [facility] (Hemogram only)2020-09-11 06:04:00 Test Item Value Reference Range Interpretation Comments WBC (test code = 6690-2) 4.9 See_Comment [A utomated message] The system [employer] generated this result transmitted ref erence range: 3.5 - 10 .5 K/L. The refe rence range was not u sed to interpret this result as normal/abnor mal. RBC (test code = 789-8) 4.10 See_Comment [Au tomated message] The system [employer] generated this result transmitted ref erence range: 3.93 - 5 .22 M/L. The refe rence range was not u sed to interpret this result as normal/abnor mal. MCHC (test code = 786-4) 27.8 See_Comment L [A utomated message] The system [employer] generated this result transmitted ref erence range: [...] See_Comment [Aut omated message] 777-3) The system [employer] generated this result transmitted ref erence range: 150 - 45 0 K/CU MM. The referen ce range was not u sed to interpret this result as normal/abnor mal. MPV (test code = 9.3 fL 9.4-12.3 L 76699-6) nRBC (test code = 413) 0 See_Comment [Aut omated message] The system [employer] generated this result transmitted ref erence range: 0 - 0 /1 00 WBC. The refere nce range was not u sed to interpret this result as normal/abnor mal. Lab Interpretation (test Abnormal code = 81113-9) [facility] (HEMOGRAM ONLY)2020-09-11 06:04:00 Test Item Value Reference [...] 0-0 (BEAKER) (test code = 413) POCT-GLUCOSE [id number] 22:09:00 Test Item Value Reference Range Interpretation Comments POC-GLUCOSE METER 127 mg/dL 70-110 H : TESTED A T [facility] 6720 (BEAKER) (test code [facility], = 1538) [address]: Quality System Manager/Techni alonso ID = [id number] for Kelly Razo POCT-GLUCOSE [id number] 17:25:00 Test Item Value Reference Range Interpretation Comments POC-GLUCOSE METER 94 mg/dL 70-110 : TESTED A T [facility] 6720 (BEAKER) (test code = [facility], 1538) [address]: Quality System Manager/Techni alonso ID = [id number] for ASHLEY SOSA Screen, [id number] 13:46:00 Test Item Value Reference Range Interpretation Comments Preg Test, Ur (test code = 2112-1) Negative [facility], [id number] 13:46:00 Test Item Value Reference Range Interpretation Comments TEST URINE (BEAKER) (test Negative code = 583) POCT-GLUCOSE [id number] 12:22:00 Test Item Value Reference Range Interpretation Comments POC-GLUCOSE METER 100 mg/dL 70-110 : TESTED A T [facility] 6720 (BEAKER) (test code = [facility], 1538) [address]: Quality System Manager/Techni alonso ID = [id number] for ASHLEY HUMPHREY BASIC METABOLIC [id number] 07:16:00 Test Item Value Reference Range Interpretation [...] S NOT APPLICABLE FOR DIALYSIS PATIEN TS. Quality System Manager ID - KAY [id number] 07:16:00 Test Item Value Reference Range Interpretation Comments MAGNESIUM (BEAKER) (test code = 1.7 mg/dL 1.6-2.6 627) Quality System Manager ID - KAY [id number] 07:16:00 Test Item Value Reference Range Interpretation Comments PHOSPHORUS (BEAKER) (test code = 4.2 mg/dL 2.3-4.7 604) Quality System Manager ID - KAY MHEPATIC FUNCTION [id number] 07:16:00 Test Item Value Reference Range Interpretation [...] (test code = 25 U/L 6-55 347) Quality System Manager ID - KAY MCBC (HEMOGRAM ONLY)2020-09-10 06:16:00 [...] 0-0 (BEAKER) (test code = 413) POCT-GLUCOSE [id number] 00:06:00 Test Item Value Reference Range Interpretation Comments POC-GLUCOSE METER 105 mg/dL 70-110 : TESTED A T [facility] 6720 (BEAKER) (test code = [facility], 1538) [address]: Quality System Manager/Techni alonso ID = [id number] for [facility] centerArianaly RAD, HIP, 2-3 VIEWS, LEFT, TO INCL PELVIS WHEN [id number] 20:36:00 Referring; Jacob Frazier MD Reason for exam:->fall; [facility] 1990 Sex: FFINAL REPORT TECHNIQUE: RAD, HIP, 2-3 VIEWS, LEFT, TO INCL PELVIS WHEN PERFORMED INDICATION: fall; hip pain COMPARISON: None. FINDINGS:Questionable lucency through the posterior acetabular wall on the left. No dislocation. No additional fractures are identified. IMPRESSION:Questionable fracture of the left posterior acetabular wall. Further evaluation with CT ofthe pelvis/left hip is recommended.. Signed: Perry Wiseman Verified Date/Time: 09/09/2020 20:36:56 Reading Location: [address] Transitional Reading Room XR hip 2 views [id number] 20:36:00Interface, External Ris In - 09/09/2020 8:39 [...] pelvis/left hip is recommended.. Signed: Perry Wiseman Verified Date/Time: 09/09/2020 20:36:56 Reading Location: [address] Transitional Reading [facility] [id number] 17:44:00 Test Item Value Reference Range Interpretation Comments POC-GLUCOSE METER 95 mg/dL 70-110 : TESTED A T [facility] 6720 (Zipidee) (test code = [employer] [facility], 1538) [address]: Quality System Manager/Techni alonso ID = [id number] for ASHLEY SOSA POCT-GLUCOSE [id number] 12:27:00 Test Item Value Reference Range Interpretation Comments POC-GLUCOSE METER 135 mg/dL 70-110 H : TESTED A T [facility] 6720 (Zipidee) (test code = [employer] [facility], 1538) [address]: Quality System Manager/Techni alonso ID = [id number] for ASHLEY HUMPHREY Hemoglobin [id number] 08:51:00 Test Item Value Reference Range Interpretation Comments Hemoglobin A1C (test code = 4548-4) 6.0 % 4.3-6.1 Lab Interpretation (test code = Normal 63082-7) [facility] HospitalHEMOGLOBIN [id number] 08:51:00 Test Item Value Reference Range Interpretation Comments HEMOGLOBIN A1C (NELAKER) (test code = 6.0 % 4.3-6.1 368) CYCLOSPORINE [id number] 08:47:00 Test Item Value Reference Range Interpretation Comments CYCLOSPORINE BLOOD 90 ng/mL <400 Test perf ormed on Urbina (BEAKER) (test code = Clive ect Immunoassay 672) system with Chemiluminescen t Microparticle Immunoassay (CM IA) technology. Quality System Manager ID - RMMR, ABDOMEN, [id number] 07:37:00Referring; Jacob Frazier MD Unlisted Reason for Exam - Click Yes and Enter Reason Below->No [facility] 1990 Sex: FFINAL [...] change at or near the anastomosis, and [place] common bile duct is nondilated.Liver: Status post liver transplant, no focal hepatic mass, normal signal and contour.Gallbladder: Surgically absent gallbladder.Pancreas: Unremarkable. Additional Findings:Lung bases: Small bilateral pleural effusions with underlying atelectasis.Spleen: UnremarkableAdrenals: UnremarkableKidneys and ureters: Subcentimeter left renal cyst, otherwise unremarkable.Bowel: A single dilated liquid filled loop of jejunum in the right anterior lower quadrant, only partially within the pwxuj-kv-jdpb on the coronal images.Lymph nodes: Unremarkable.Peritoneum: Unremarkable.Vessels:UnremarkableAbdominal [...] focal obstruction not excluded. Signed: Jolie Arrieta Verified Date/Time: 09/09/2020 07:37:39 Reading Location: [facility] Diagnostic Imaging Reading Room - [place] [address] MR abdomen without IV contrast [id number] 07:37:00Interface, External Ris In - 09/09/2020 7:39 [...] caliber change at ornear the anastomosis, and [place] common bile duct is nondilated.Liver: Status post liver transplant,no focal hepatic mass, normal signal and contour.Gallbladder: Surgically absent gallbladder.Pancreas: Unremarkable. Additional Findings:Lung bases: Small bilateral pleural effusions with underlying atelectasis.Spleen: UnremarkableAdrenals: UnremarkableKidneys and ureters: Subcentimeter left renal cyst, otherwise unremarkable.Bowel: A single dilated liquid filled loop of jejunum in the right anterior lower quadrant, only partially within the abbok-mm-upib on the coronal images.Lymph nodes: Unremarkable.Peritoneum: Unremarkable.Vessels: [...] Arrietaeport Verified Date/Time: 09/09/2020 07:37:39 Reading Location: [facility] Diagnostic Imaging Reading Room - [place] [address] [address] [facility] METABOLIC [id number] 06:32:00 Test Item Value Reference Range Interpretation [...] S NOT APPLICABLE FOR DIALYSIS PATIEN TS. Quality System Manager ID - EV [id number] 06:32:00 Test Item Value Reference Range Interpretation Comments MAGNESIUM (BEAKER) (test code = 1.5 mg/dL 1.6-2.6 L 627) Quality System Manager ID - EV [id number] 06:32:00 Test Item Value Reference Range Interpretation Comments PHOSPHORUS (BEAKER) (test code = 3.7 mg/dL 2.3-4.7 604) Quality System Manager ID - EV BHEPATIC FUNCTION [id number] 06:32:00 Test Item Value Reference Range Interpretation [...] (test code = 9 U/L 6-55 347) Quality System Manager ID - EV BPROTHROMBIN TIME/[id number] 06:02:00 Test Item Value Reference Range Interpretation Comments PROTIME (BEAKER) 12.7 seconds 11.9-14.2 (test code = 759) INR (BEAKER) (test 0.99 See_Comment [Automat ed message] code = 370) The system [employer] generated this result transmitted ref erence range: [...] 0-0 (BEAKER) (test code = 413) POCT-GLUCOSE [id number] 00:03:00 Test Item Value Reference Range Interpretation Comments POC-GLUCOSE METER 97 mg/dL 70-110 : TESTED A T [facility] 6720 ([facility]) (test code = [facility], 153) [address]: Quality System Manager/Techni alonso ID = [id number] for Kristan Chahal CYCLOSPORINE [id number] 12:56:00 Test Item Value Reference Range Interpretation Comments CYCLOSPORINE BLOOD 129 ng/mL <400 Test perf ormed on Urbina ([facility]) (test code Architec t Immunoassay = 672) system with Chemiluminescen t Microparticle Immunoassay (CM IA) technology. Quality System Manager ID - JOSE FPOCT-GLUCOSE [id number] 12:31:00 Test Item Value Reference Range Interpretation Comments POC-GLUCOSE METER 97 mg/dL 70-110 : Notified RN/MD: TESTED ([facility]) (test code = [facility] [facility] 1538) [facility], 770 30: Quality System Manager/Techni alonso ID = [id number] for Vincenzo na, Rhonda BASIC METABOLIC [id number] 06:56:00 Test Item Value Reference Range Interpretation [...] S NOT APPLICABLE FOR DIALYSIS PATIEN TS. Quality System Manager ID - KAY [id number] 06:56:00 Test Item Value Reference Range Interpretation Comments MAGNESIUM (BEAKER) (test code = 1.7 mg/dL 1.6-2.6 627) Quality System Manager ID - KAY [id number] 06:56:00 Test Item Value Reference Range Interpretation Comments PHOSPHORUS (BEAKER) (test code = 4.0 mg/dL 2.3-4.7 604) Quality System Manager ID - KAY MHEPATIC FUNCTION [id number] 06:56:00 Test Item Value Reference Range Interpretation [...] (test code = 13 U/L 6-55 347) Quality System Manager ID - KAY MCBC (HEMOGRAM ONLY)2020-09-08 06:23:00 [...] 0-0 (BEAKER) (test code = 413) PROTHROMBIN TIME/[id number] 06:21:00 Test Item Value Reference Range Interpretation Comments PROTIME (BEAKER) 12.9 seconds 11.9-14.2 (test code = 759) INR (BEAKER) (test 1.00 See_Comment [Automat ed message] code = 370) The system [employer] generated this result transmitted ref erence range: <=5.90. The reference range was not used to int erpret this result as normal/abnormal . Effective 11/07/2018: PT Reference Range ChangeNew: 11.9-14.2 Previous: 11.7- 14.7RECOMMENDED COUMADIN/WARFARIN INR THERAPY RANGESSTANDARD DOSE: 2.0-3.0 Includes: PROPHYLAXIS for venous thrombosis, systemic embolization; TREATMENT for venous thrombosis and/or pulmonary embolus.HIGH RISK: Target INR is2.5-3.5 for patients wiht mechanical heart valves.POCT-GLUCOSE [id number] 00:15:00 Test Item Value Reference Range Interpretation Comments POC-GLUCOSE METER 167 mg/dL 70-110 H : TESTED A T [facility] 6720 (REDDY) (test code = [facility], 1538) [address]: Quality System Manager/Techni alonso ID = [id number] for AIYANA CHILDERS POCT-GLUCOSE [id number] 19:12:00 Test Item Value Reference Range Interpretation Comments POC-GLUCOSE METER 139 mg/dL 70-110 H : Notified RN/MD: (REDDY) (test code = TESTED AT [facility] 6720 1538) [facility], [address]: Quality System Manager/Techni alonso ID = [id number] for Rhonda Moore SARS-CoV2/RT-PCR (Asymptomatic ONLY)2020-09-07 11:26:00 Test Item Value Reference Range Interpretation Comments SARS-COV2/RT-PCR Negative Not Detected, (test code = Negative, See [address]-9) external report for linked test SARS-COV-2 [facility] NOE PERFORMING LAB (test code = 47072-1) YEHUDA (test code = Negative result for [...] of the Act. Fact Sheet for Healthcare Providers:https://www.MerryMarry/sites/default/f keisha/product/documents/F act_Sheet_HC_Providers_L nkr_ZXMF-BsW-2.pdf Fact Sheet for Healthcare Patients:https://www.TestQuest/sites/default/fi les/product/documents/Fa ct_Sheet_Patients_Lyra_S ARS-CoV-2.pdf Performing Laboratory:[address]POCT-GLUCOSE [id number] 11:26:00 Test Item Value Reference Range Interpretation Comments POC-GLUCOSE METER 223 mg/dL 70-110 H : Notified RN/MD: (REDDY) (test code = TESTED AT [place] [address] 1538) [facility], [address]: Quality System Manager/Techni alonso ID = [id number] for Rhonda Moore SARS-COV2/RT-PCR ([facility])2020-09-07 11:26:00 Test Item Value Reference Range Interpretation Comments SARS-COV2/RT-PCR (test Negative Not Detected, Negative, code = 5121484) See external report for linked test SARS-COV-[address] [facility] NOE (test code = 5819104) Negative result for this test determines that [...] 564(g) of the Act.Fact Sheet for Healthcare Providers:https://www.Xtime.SitatByoot.com/sites/default/files/product/documents/Fact_Shee l_WG_Bbyofnpda_Ziyf_OSOM-EmT-9.pdfFact Sheet for Healthcare Patients:https://www.Xtime.SitatByoot.com/sites/default/files/product/ documents/Uafn_Gbcnj_Jqamnrhc_Rgak_GFTU-OjJ-3.pdfPerforming Laboratory:[facility] [facility] Centeral[facility] samuel.[place], [place] [address]KJAAKRNMZBXU LEVEL 2020-09-07 10:44:00 Test Item Value Reference Range Interpretation Comments CYCLOSPORINE BLOOD 241 ng/mL <400 Test perf ormed on Elastra (BEAKER) (test code Architec t Immunoassay = 672) system with Chemiluminescen t Microparticle Immunoassay (CM IA) technology. Quality System Manager ID - UMAIR Whaley, TIBC, % sat. (without ferritin)2020-09-07 06:18:00 Test Item Value Reference Range Interpretation Comments Iron (test code = 2498-4) 18.0 ug/dL 40-160 L TIBC (test code = 2500-7) 524 ug/dL 250-450 H Iron % Saturation (test 3 % 20-55 L code = 2502-3) YEHUDA (test code = YEHUDA) Quality System Manager ID Alley Ocampo Lab Interpretation (test Abnormal code = 71622-5) [facility] HospitalIRON, TIBC, % SAT. (WITHOUT FERRITIN)2020-09-07 06:18:00 Test Item Value Reference Range Interpretation Comments IRON (BEAKER) (test code = 547) 18.0 ug/dL 40.0-160.0 L TOTAL IRON BINDING CAPACITY 524 ug/dL 250-450 H (BEAKER) (test code = 769) IRON % SATURATION (2) (BEAKER) 3 % 20-55 L (test code = 2590) Quality System Manager ID - KAY RGzcedaza8697-41-51 06:13:00 Test Item Value Reference Range Interpretation Comments Ferritin (test code = 3.96 ng/mL 5-275 L 2276-4) YEHUDA (test code = YEHUDA) Quality System Manager ID Alley Ocampo Lab Interpretation (test Abnormal code = 34139-8) [facility] HospitalFERRITIN2021-03-29 06:13:00 Test Item Value Reference Range Interpretation Comments FERRITIN (BEAKER) (test code = 3.96 ng/mL 5.00-275.00 L 361) Quality System Manager ID - KAY MBASIC METABOLIC [id number] 05:43:00 Test Item Value Reference Range Interpretation [...] S NOT APPLICABLE FOR DIALYSIS PATIEN TS. Quality System Manager ID - KAY EKSXKZCIEQ1895-05-01 05:43:00 Test Item Value Reference Range Interpretation Comments MAGNESIUM (BEAKER) (test code = 1.8 mg/dL 1.6-2.6 627) Quality System Manager ID - KAY DFZYPFPKUBW8818-07-88 05:43:00 Test Item Value Reference Range Interpretation Comments PHOSPHORUS (BEAKER) (test code = 3.8 mg/dL 2.3-4.7 604) Quality System Manager ID - KAY MHEPATIC FUNCTION [id number] 05:43:00 Test Item Value Reference Range Interpretation [...] (test code = 14 U/L 6-55 347) Quality System Manager ID - KAY MPROTHROMBIN TIME/[id number] 05:43:00 Test Item Value Reference Range Interpretation Comments PROTIME (BEAKER) 13.2 seconds 11.9-14.2 (test code = 759) INR (BEAKER) (test 1.03 See_Comment [Automat ed message] code = 370) The system [employer] generated this result transmitted ref erence range: [...] (BEAKER) (test code = 413) U/S, DUPLEX, [id number] 02:10:00Referring; Jacob Frazier MD Reason for exam:->Liver transplant with abdominal pain; eval liver parenchyma and for PVTCH[facility] : 1990 Sex: FFINAL REPORT [...] and right hepatic arteries. Signed: Wyatt Sun MDRv[facility] Verified Date/Time: 09/07/2020 02:10:06 U/S, ABDOMINAL, [id number] 02:10:00Referring; Jacob Frazier MD Placed separate order for Doppler to be done as wellAbdomen limited area? Add comment if clarification is needed.->LiverReason for exam:- >Abdominal pain, liver transplant. Needs to be done with Doppler [facility] : 1990 Sex: FFINAL [...] Sun MDReport Verified Date/Time: 09/07/2020 02:10:06 US [id number] 02:10:00Interface, External Ris In - 09/07/2020 2:12 [...] Wyatt Sun MDReport Verified Date/Time: 09/07/2020 02:10:06 [facility] [id number] 02:10:00Interface, External Ris In - 09/07/2020 2:12 [...] Wyatt Sun MDReport Verified Date/Time: 09/07/2020 02:10:06 [facility] CenterComprehensive metabolic [id number] 22:22:00 Test Item Value Reference Range Interpretation Comments Protein, Total (test 7.0 See_Comment [Autom ated code = 2885-2) message] The system which generated this result transmitted reference range : 6.0 - 8.3 gm/dL . The reference range was not used to interpr et this result as normal/abnormal . Albumin (test code = 3.9 g/dL 3.5-5 37318-6) Alkaline Phosphatase 261 U/L 40-150 H (test code = 6768-6) Total Bilirubin (test 0.2 mg/dL 0.2-1.2 code = 1975-2) Sodium (test code = 140 meq/L 152-637 7456-2) Potassium (test code 4.7 meq/L 3.5-5.1 = 2823-3) Chloride (test code = 109 meq/L 98-107 H 2075-0) CO2 (test code = 22 meq/L -8-9) BUN (test code = 13 mg/dL 7-21 3094-0) Creatinine (test code 0.83 mg/dL 0.57-1.25 = 2160-0) Glucose (test code = 149 mg/dL 70-105 H 2345-7) Calcium (test code = 9.2 mg/dL 8.4-10.2 54452-4) AST (test code = 20 U/L 5-34 1920-8) ALT (test code = 16 U/L 6-55 1742-6) EGFR (test code = 80 mL/min/1.73 [place] [address]-8) m NOT ACCURATE CREATININE CLEARANCE IN PREDICTING GLOMERULAR FILTRATION RATE . ESTIMATED GFR I S NOT APPLICABLE FOR DIALYSIS PATIENTS. YEHUDA (test code = YEHUDA) Quality System Manager ID - DBSpecimen slightly lipemic Lab Interpretation Abnormal (test code = 92249-4) [facility] 22:22:00 Test Item Value Reference Range Interpretation Comments MAGNESIUM (BEAKER) (test code = 1.8 mg/dL 1.6-2.6 627) Quality System Manager ID - BNVTWKALIRXQ4457-86-29 22:22:00 Test Item Value Reference Range Interpretation Comments PHOSPHORUS (BEAKER) (test code = 3.6 mg/dL 2.3-4.7 604) Quality System Manager ID - DBCOMPREHENSIVE METABOLIC [id number] 22:22:00 Test Item Value Reference Range Interpretation [...] S NOT APPLICABLE FOR DIALYSIS PATIEN TS. Quality System Manager ID - DBSpecimen slightly lipemicPROTHROMBIN TIME/[id number] 22:17:00 Test Item Value Reference Range Interpretation Comments PROTIME (BEAKER) 13.3 seconds 11.9-14.2 (test code = 759) INR (BEAKER) (test 1.04 See_Comment [Automat ed message] code = 370) The system [employer] generated this result transmitted ref erence range: <=5.90. The reference range was not used to int erpret this result as normal/abnormal . Effective 11/07/2018: PT Reference Range ChangeNew: 11.9-14.2 Previous: 11.7- 14.7RECOMMENDED COUMADIN/WARFARIN INR THERAPY RANGESSTANDARD DOSE: 2.0-3.0 Includes: PROPHYLAXIS for venous thrombosis, systemic embolization; TREATMENT for venous thrombosis and/or pulmonary embolus.HIGH RISK: Target INR is2.5-3.5 for patients wiht mechanical heart valves.CBC W/PLT COUNT & AUTO [id number] 22:07:00 Test Item Value Reference Range Interpretation [...] PERCENT (BEAKER) (test code = 2801) POCT-GLUCOSE [id number] 21:28:00 Test Item Value Reference Range Interpretation Comments POC-GLUCOSE METER 109 mg/dL 70-110 : TESTED A T BSC 6720 (BEAKER) (test code = YOUSIFAARTI [facility], 1538) [address]: Quality System Manager/Techni alonso ID = [id number] for ELIZABETH ARREAGA MISCELLANEOUS LAB [id number] 11:17:00 Test Item Value Reference Range Interpretation Comments SCAN RESULT (test code = 4019177) Miscellaneous lab [id number] 11:17:00Scan ResultQUEST NON-INTERFACED LABCHI [facility] A Antibody, IgG ([facility] Only)2020-08-03 14:17:00 Test Item Value Reference Range Interpretation Comments Hep A IgG (test code = Reactive Nonreactive A 86501-8) YEHUDA (test code = YEHUDA) Quality System Manager ID - AAHAMID Lab Interpretation (test Abnormal code = 16938-1) [facility], [id number] 14:17:00 Test Item Value Reference Range Interpretation Comments HEPATITIS A IGG ANTIBODY (BEAKER) Reactive Nonreactive A (test code = 2797) Quality System Manager ID - AAHAMIDHepatitis B surface akqykdn1677-18-73 14:14:00 Test Item Value Reference Range Interpretation Comments HBsAg Screen (test code Nonreactive Nonreactive = 5195-3) YEHUDA (test code = YEHUDA) Specimen is considered negative for HBsAg. Lab Interpretation (test Normal code = 05857-8) [facility] surface [id number] 14:14:00 Test Item Value Reference Range Interpretation Comments Hep B S Ab (test code 19.7 See_Comment H [Auto mated = 33410-8) message] The system which generated this result transmit ashok reference range : <8.0 mIU/mL. Th e reference range was not used to interpret this result as normal/abnormal . YEHUDA (test code = YEHUDA) Quality System Manager ID - AAHAMID Lab Interpretation Abnormal (test code = 78871-9) [facility] HospitalHejackson purchase medical centertis B core antibody, [id number] 14:14:00 Test Item Value Reference Range Interpretation Comments Hep B Core Total Ab Nonreactive Nonreactive (test code = 88296-0) YEHUDA (test code = YEHUDA) Quality System Manager ID - AAHAMID Lab Interpretation (test Normal code = 19492-6) [facility] HospitalHEPATITIS B SURFACE [id number] 14:14:00 Test Item Value Reference Range Interpretation Comments HEPATITIS B SURFACE ANTIGEN (2) Nonreactive Nonreactive (BEAKER) (test code = 2585) Specimen is considered negative for HBsAg.HEPATITIS B SURFACE [id number] 14:14:00 Test Item Value Reference Range Interpretation Comments HEPATITIS B SURFACE ANTIBODY 19.7 mIU/mL <8.0 H (BEAKER) (test code = 647) Quality System Manager ID - AAHAMIDHEPATITIS B CORE ANTIBODY, [id number] 14:14:00 Test Item Value Reference Range Interpretation Comments HEPATITIS B CORE TOTAL ANTIBODY Nonreactive Nonreactive (BEAKER) (test code = 497) Quality System Manager ID - AAHAMIDCYCLOSPORINE [id number] 13:52:00 Test Item Value Reference Range Interpretation Comments CYCLOSPORINE BLOOD 64 ng/mL <400 Test perf ormed on [place] (BEAKER) (test code = Clive ect Immunoassay 672) system with Chemiluminescen t Microparticle Immunoassay (CM IA) technology. Quality System Manager ID - EMERSONBASIC METABOLIC [id number] 13:17:00 Test Item Value Reference Range Interpretation [...] S NOT APPLICABLE FOR DIALYSIS PATIEN TS. Quality System Manager ID - ADMINHEPATIC FUNCTION [id number] 13:17:00 Test Item Value Reference Range Interpretation [...] (test code = 12 U/L 6-55 347) Quality System Manager ID - ADMINCBC W/PLT COUNT & AUTO [id number] 11:55:00 Test Item Value Reference Range Interpretation [...] PERCENT (BEAKER) (test code = 2801) PROTHROMBIN [id number] 11:54:00 Test Item Value Reference Range Interpretation Comments PROTIME (BEAKER) 13.5 seconds 11.9-14.2 (test code = 759) INR (BEAKER) (test 1.06 See_Comment [Automat ed message] code = 370) The system [employer] generated this result transmitted ref erence range: <=5.90. The reference range was not used to int erpret this result as normal/abnormal . Effective 11/07/2018: PT Reference Range ChangeNew: 11.9-14.2 Previous: 11.7- 14.7RECOMMENDED COUMADIN/WARFARIN INR THERAPY RANGESSTANDARD DOSE: 2.0-3.0 Includes: PROPHYLAXIS for venous thrombosis, systemic embolization; TREATMENT for venous thrombosis and/or pulmonary embolus.HIGH RISK: Target INR is2.5-3.5 for patients wiht mechanical heart valves.MRI Lumbar Spine Wo [id number] 04:22:25EXAMINATION: MRI LUMBAR SPINE WO CONTRAST CLINICAL HISTORY: back and leg pain COMPARISON: None TECHNIQUE: Multiplanar multisequence noncontrast enhanced examination was performed of the Lumbar spine.FINDINGS: Numbering assumes that the last visualized functional disc to be L5-S1. There is normal lordosis. Vertebral body heights are maintained without acute fracture. No focal significant marrow signal abnormality is appreciated. Soft tissues shows no mass, adenopathy or aneurysm. The partially visualized spinal cord and the conus are unremarkable. Axial images through the disc spaces demonstrate the following: T12-L1: No significant posterior disc disease, spinal canal, lateral recess or neural foraminal stenosis. L1-L2: No significant posterior disc disease, spinal canal, lateral recess or neural foraminal stenosis. L2-L3: No significant posterior disc disease, spinal canal, lateral recessor neural foraminal stenosis. L3-L4: There is mild disc bulge and facet disease. There is mild narrowing of the inferior foramina, bilaterally. L4-L5: There is mild disc bulge and facet disease withoutcanal or lateral recess narrowing. The foramina remain widely patent. L5-S1: There is disc desiccation with mild disc bulge without canal or lateral recess narrowing. Disc osteophyte changes and 1 mm an terolisthesis of L5 with facet spurring results in mild narrowing of the bilateral foramina. The partially visualized upper sacrum is unremarkable. IMPRESSION: There is disc disease most prominent atL5-S1 with mild narrowing of the bilateral foramina. No significant stenosis identified. There is noacute osseous edema or fracture. [facility]-[id number] [facility], Radiology Results 03/17/2020 11:25 PM CDT EXAMINATION: MRI LUMBAR SPINE WO CONTRASTCLINICAL HISTORY: back and leg painCOMPARISON: NoneTECHNIQUE: Multiplanar multisequence noncontrast enhanced examination was performed of the Lumbar spine.FINDINGS:Numbering assumes that the last visualized functional disc to be L5-S1.There is normal lordosis. Vertebral body heightsare maintained without acute fracture. No focal significant marrow signal abnormality is appreciated. Soft tissues shows no mass, adenopathy or aneurysm. The partially visualized spinal cord and the conus are unremarkable. Axial images through the disc spaces demonstrate the following:T12-L1: No significant posterior disc disease, spinal canal, lateral recess or neural foraminal stenosis.L1-L2: No significant posterior disc disease, spinal canal, lateral recess or neural foraminal stenosis.L2-L3: Nosignificant posterior disc disease, spinal canal, lateral recess or neural foraminal stenosis.L3-L4:There is mild disc bulge and facet disease. There is mild narrowing of the inferior foramina, bilaterally.L4-L5: There is mild disc bulge and facet disease without canal or lateral recess narrowing. The foramina remain widely patent.L5-S1: There is disc desiccation with mild disc bulge without canal or lateral recess narrowing. Disc osteophyte changes and 1 mm anterolisthesis of L5 with facet spurring results in mild narrowing of the bilateral foramina.The partially visualized upper sacrum is unremarkable.IMPRESSION: There is disc disease most prominent at L5-S1 with mild narrowing of the bilateralforamina. No significant stenosis identified. There is no acute osseous edema or fracture.[facility]-[id number] Rock Medical Center Lumbar Spine Wo [id number] 04:22:25EXAMINATION: MRI LUMBAR SPINE WO CONTRAST CLINICAL HISTORY: back and leg pain COMPARISON: None TECHNIQUE: Multiplanar multisequence noncontrast enhanced examination was performed of the Lumbar spine.FINDINGS: Numbering assumes that the last visualized functional disc to be L5-S1. There is normal lordosis. Vertebral body heights are maintained without acute fracture. No focal significant marrow signal abnormality is appreciated. Soft tissues shows no mass, adenopathy or aneurysm. The partially visualized spinal cord and the conus are unremarkable. Axial images through the disc spaces demonstrate the following: T12-L1: No significant posterior disc disease, spinal canal, lateral recess or neural foraminal stenosis. L1-L2: No significant posterior disc disease, spinal canal, lateral recess or neural foraminal stenosis. L2-L3: No significant posterior disc disease, spinal canal, lateral recessor neural foraminal stenosis. L3-L4: There is mild disc bulge and facet disease. There is mild narrowing of the inferior foramina, bilaterally. L4-L5: There is mild disc bulge and facet disease withoutcanal or lateral recess narrowing. The foramina remain widely patent. L5-S1: There is disc desiccation with mild disc bulge without canal or lateral recess narrowing. Disc osteophyte changes and 1 mm anterolisthesis of L5 with facet spurring results in mild narrowing of the bilateral foramina. The partially visualized upper sacrum is unremarkable. IMPRESSION: There is disc disease most prominent atL5-S1 with mild narrowing of the bilateral foramina. No significant stenosis identified. There is noacute osseous edema or fracture. [facility]-[id number] Interface, Radiology Results - 03/17/2020 11:25 PM CDT EXAMINATION: MRI LUMBAR SPINE WO CONTRASTCLINICAL HISTORY: back and leg painCOMPARISON: NoneTECHNIQUE: Multiplanar multisequence noncontrast enhanced examination was performed of the Lumbar spine.FINDINGS:Numbering assumes that the last visualized functional disc to be L5-S1.There is normal lordosis. Vertebral body heightsare maintained without acute fracture. No focal significant marrow signal abnormality is appreciated. Soft tissues shows no mass, adenopathy or aneurysm. The partially visualized spinal cord and the conus are unremarkable. Axial images through the disc spaces demonstrate the following:T12-L1: No significant posterior disc disease, spinal canal, lateral recess or neural foraminal stenosis.L1-L2: No sig nificant posterior disc disease, spinal canal, lateral recess or neural foraminal stenosis.L2-L3: Nosignificant posterior disc disease, spinal canal, lateral recess or neural foraminal stenosis.L3-L4:There is mild disc bulge and facet disease. There is mild narrowing of the inferior foramina, bilaterally.L4- L5: There is mild disc bulge and facet disease without canal or lateral recess narrowing. The foramina remain widely patent.L5-S1: There is disc desiccation with mild disc bulge without canal or lateral recess narrowing. Disc osteophyte changes and 1 mm anterolisthesis of L5 with facet spurring results in mild narrowing of the bilateral foramina.The partially visualized upper sacrum is unremarkable.IMPRESSION: There is disc disease most prominent at L5-S1 with mild narrowing of the bilateralforamina. No significant stenosis identified. There is no acute osseous edema or fracture.[facility]-[id number] Rock Medical Center Thoracic Spine Wo [id number] 04:18:04EXAMINATION: MRI THORACIC SPINE WO CONTRAST CLINICAL HISTORY: back and leg pain COMPARISON: None TECHNIQUE: Multiplanar multisequence noncontrast enhanced examination was performed of the thoracic spine. FINDINGS: Motion artifact degrades image quality and lack of axial T2 images, limits evaluation.No vertebral fracture. No subluxation. No suspicious osseous lesions. No degenerative marrow signal abnormality. No significant posterior disc disease, spinal canal, subarticular zone or neural foraminal stenosis throughout the thoracic spine. No abnormal spinal cord signal. There is no mass, adenopathy or aneurysm of the visualized soft tissues. IMPRESSION: No significant thoracic spine abnormality identified. [facility]-[id number] [facility], Radiology Results Incoming - 03/17/2020 11:21 PM CDT EXAMINATION: MRI THORACIC SPINE WO CONTRASTCLINICAL HISTORY: back and leg painCOMPARISON: NoneTECHNIQUE: Multiplanar multisequence noncontrast enhanced examination was performed of the thoracic spine.FINDINGS:Motion artifact degrades image quality and lack of axial T2 images, limits evaluation.No vertebral fracture. No subluxation. No suspic ious osseous lesions. No degenerative marrow signal abnormality. No significant posterior disc disease, spinal canal, subarticular zone or neural foraminal stenosis throughout the thoracic spine. No abnormal spinal cord signal.There is no mass, adenopathy or aneurysm of the visualized soft tissues. IMPRESSION: No significant thoracic spine abnormality identified. [facility]-[id number] HospitalMRI Thoracic Spine Wo Pueqrmih0012-28-26 04:18:04EXAMINATION: MRI THORACIC SPINE WO CONTRAST CLINICAL HISTORY: back and leg pain COMPARISON: None TECHNIQUE: Multiplanar multisequence noncontrast enhanced examination was performed of the thoracic spine. FINDINGS: Motion artifact degrades image quality and lack of axial T2 images, limits evaluation.No vertebral fracture. No subluxation. No suspicious osseous lesions. No degenerative marrow signal a bnormality. No significant posterior disc disease, spinal canal, subarticular zone or neural foraminal stenosis throughout the thoracic spine. No abnormal spinal cord signal. There is no mass, adenopathy or aneurysm of the visualized soft tissues. IMPRESSION: No significant thoracic spine abnormality identified. [facility]-[id number] Interface, Radiology Results 03/17/2020 11:21 PM CDT EXAMINATION: MRI THORACIC SPINE WO CONTRASTCLINICAL HISTORY: back and leg painCOMPARISON: NoneTECHNIQUE: Multiplanar multisequence noncontrast enhanced examination was performed of the thoracic spine.FINDINGS:Motion artifact degrades image quality and lack of axial T2 images, limits evaluation.No vertebral fracture. No subluxation. No suspicious osseous lesions. No degenerative marrow signal abnormality. No significant posterior disc diseas e, spinal canal, subarticular zone or neural foraminal stenosis throughout the thoracic spine. No abnormal spinal cord signal.There is no mass, adenopathy or aneurysm of the visualized soft tissues. IMPRESSION: No significant thoracic spine abnormality identified. [id number] HospitalDonor specific [id number] 16:48:28 Test Item Value Reference Range Interpretation Comments DSA serum ID (test code [id number] = 5858) DSA serum collection D&T 03/03/2020 05:45 AM (test code = 5859) DSA class I antibody Negative assignment (test code = 5862) DSA antibody I comments None (test code = 5863) DSA cPRA class I (test code = 5860) DSA class II antibody Negative assignment (test code = 5864) DSA antibody II comments None (test code = 5865) DSA cPRA class II (test code = 5861) Case number (test code = [id number]) Donor specific antibody See link below for (test code = 1080) PDF [facility] Report [facility] specific [id number] 16:48:28 Test Item Value Reference Range Interpretation Comments DSA serum ID (test code [id number] = 5858) DSA serum collection D&T 03/03/2020 05:45 AM (test code = 5859) DSA class I antibody Negative assignment (test code = 5862) DSA antibody I comments None (test code = 5863) DSA cPRA class I (test code = 5860) DSA class II antibody Negative assignment (test code = 5864) DSA antibody II comments None (test code = 5865) DSA cPRA class II (test code = 5861) Case number (test code = [id number]) Donor specific antibody See link below for (test code = 1080) PDF Lab Report [facility] Thoracic Spine Wo [id number] 21:51:42EXAMINATION: CT THORACIC SPINE WO CONTRAST CLINICAL HISTORY: eval possible thoracic radiculopathy COMPARISON: None TECHNIQUE: Noncontrast enhanced axial images of the thoracic spine were obtained withcoronal and sagittal reconstructed algorithms. CT imaging was performed with iterative reconstruction techniques and/or automated exposure control to reduce radiation dose. FINDINGS: Vertebral heights preserved. No fracture or aggressive bone lesion is seen. Minimal multilevel disc degenerative changes are present. No significant disc bulge or herniation is suggested. No canal or foraminal stenosis is seen. The paraspinous soft tissues are unremarkable. Postoperative changes related to liver trans plantation are seen. IMPRESSION: Minimal multilevel disc degenerative changes of the thoracic spine. No canal or foraminal stenosis. [id number] Interface, Radiology Results Incoming - 03/03/2020 4:54 PM CDT EXAMINATION: CT THORACIC SPINE WO CONTRASTCLINICAL HISTORY: eval possible thoracic radiculopathyCOMPARISON: NoneTECHNIQUE: Noncontrast enhanced axial images of the thoracic spine were obtained with coronal and sagittal reconstructed algorithms. CT imaging was performed with iterative reconstruction techniques and/or automated exposure control to reduce radiation dose.FINDINGS:Vertebral heights preserved. No fracture or aggressive bone lesion is seen.Minimal multilevel disc degenerative changes are present.No significant discbulge or herniation is suggested. No canal or foraminal stenosis is seen.The paraspinous soft tissues are unremarkable.Postoperative changes related to liver transplantation are seen.IMPRESSION:Minimalmultilevel disc degenerative changes of the thoracic spine.No canal or foraminal stenosis.[id number] HospitalCT Thoracic Spine Wo Pfkifkra0632-74-14 21:51:42EXAMINATION: CT THORACIC SPINE WO CONTRAST CLINICAL HISTORY: eval possible thoracic radiculopathy COMPARISON: None TECHNIQUE: Noncontrast enhanced axial images of the thoracic spine were obtained withcoronal and sagittal reconstructed algorithms. CT imaging was performed with iterative reconstruction techniques and/or automated exposure control to reduce radiation dose. FINDINGS: Vertebral heights preserved. No fracture or aggressive bone lesion is seen. Minimal multilevel disc degenerative changes are present. No significant disc bulge or herniation is suggested. No canal or foraminal stenosis is seen. The paraspinous soft tissues are unremarkable. Postoperative changes related to liver transplantation are seen. IMPRESSION: Minimal multilevel disc degenerative changes of the thoracic spine. No canal or foraminal stenosis. [id number] Interface, Radiology Results Incoming - 03/03/2020 4:54 PM CDT EXAMINATION: CT THORACIC SPINE WO CONTRASTCLINICAL HISTORY: eval possible thoracic radiculopathyCOMPARISON: NoneTECHNIQUE: Noncontrast enhanced axial images of the thoracic spine were obtained with coronal and sagittal reconstructed algorithms. CT imaging was performed with iterative reconstruction techniques and/or automated exposure control to reduce radiation dose.FINDINGS:Vertebral heights preserved. No fracture or aggressive bone lesion is seen.Minimal multilevel disc degenerative changes are present.No significant discbulge or herniation is suggested. No canal or foraminal stenosis is seen.The paraspinous soft tissues are unremarkable.Postoperative changes related to liver transplantation are seen.IMPRESSION:Minimalmultilevel disc degenerative changes of the thoracic spine.No canal or foraminal stenosis.[id number]_PS01[facility] HospitalXR Ribs 2 Vw [id number] 21:25:02Right rib series, 03/03/2020 Clinical history: Intercostal painComparison: NoneTechnique: Please oblique views right RIBS Findings:The right ribs and regional skeleton are intact. Surgical clips are present along the right lateral margin of the spine. Indwelling right midline. Impression:No acute abnormality. Specifically, no conspicuous rib fracture or other lesion.. Interface, Radiology Results I [facility] - 03/03/2020 4:28 PM CDT Right rib series, 03/03/2020Clinical history: Intercostal painComparison: NoneTechnique: Please oblique views right RIBSFindings:The right ribs and regional skeleton are intact. Surgical clips are present along the right lateral margin of the spine. Indwelling right midline.Impression:No acute abnormality. Specifically, no conspicuous rib fracture or other lesion.. [facility] Ribs 2 Vw [id number] 21:25:02Right rib series, 03/03/2020 Clinical history: Intercostal painComparison: NoneTechnique: Please oblique views right RIBS Findings:The right ribs and regional skeleton are intact. Surgical clips are present along the right lateral margin of the spine. Indwelling right midline. Impression:No acute abnormality. Specifically, no conspicuous rib fracture or other lesion.. Interface, Radiology Results I [facility] - 03/03/2020 4:28 PM CDT Right rib series, 03/03/2020Clinical history: Intercostal painComparison: NoneTechnique: Please oblique views right RIBSFindings:The right ribs and regional skeleton are intact. Surgical clips are present along the right lateral margin of the spine. Indwelling right midline.Impression:No acute abnormality. Specifically, no conspicuous rib fracture or other lesion.. [facility] Abdominal Pombkyu2927-70-25 02:14:58EXAMINATION: US ABDOMINAL DOPPLER CLINICAL HISTORY: Portal vein thrombosis, S P Liver Transplant COMPARISON: CT of the abdomen dated 03/01/2020 TECHNIQUE: Humphrey scale, color Doppler and spectral waveform analysis of the hepatic vasculature. IMPRESSION: 1. PORTAL VEINS: *Main portal vein: Main portal vein is patent with normal directionality of flow. The diameter of the portal vein is normal at 12 m m. Portal vein velocity is 39.1 cm/sec. *Left Portal Vein: The left portal vein is patent.*Right Portal Vein:The right portal vein is patent. 2. HEPATIC VEINS: *Right Hepatic Vein: The right hepatic vein is patent.*Middle Hepatic Vein: The middle hepatic vein is patent.*Left Hepatic Vein: The left hepatic vein is patent. 3. HEPATIC ARTERIES: *Right Hepatic Artery: The right hepatic artery is patent.*Left Hepatic Artery: The left hepatic artery is patent. 4. IVC: The inferior vena cava is patent. 5.SMV: The superior mesenteric vein is patent. 6. SPLENIC ARTERY/VEINS: *Splenic Artery/Vein at Spleen: The splenic artery/vein at the spleen are patent.*Splenic Artery/Vein at Midline: The splenic arnoldo ry/vein at the midline are patent. Interface, Radiology Results Incoming - 03/02/2020 9:18 PM CDT EXAMINATION: US ABDOMINAL DOPPLERCLINICAL HISTORY: Portal vein thrombosis, S P Liver TransplantCOMPARISON: CT of the abdomen dated 2019TECHNIQUE: Humphrey scale, color Doppler and spectral waveform analysis of the hepatic vasculature.IMPRESSION:1. PORTAL VEINS: *Main portal vein: Main portal vein is patent with normal directionality of flow. The diameter of the portal vein is normal at 12 mm. Portal vein velocity is 39.1 cm/sec. *Left Portal Vein: The left portal vein is patent.*Right Portal Vein:The right portal vein is patent.2.HEPATIC VEINS: *Right Hepatic Vein: The right hepatic vein is patent.*Middle Hepatic Vein: The middle hepatic vein is patent.*Left Hepatic Vein: The left hepatic vein is patent.3. HEPATIC ARTERIES: *Right Hepatic Artery: The right hepatic artery is patent.*Left Hepatic Artery: The left hepatic artery is patent.4. IVC: The inferior vena cava is patent.5. SMV: The superior mesenteric vein is patent.6. SPLENIC ARTERY/VEINS: *Splenic Artery/Vein at Spleen: The splenic artery/vein at the spleen are mendoza nt.*Splenic Artery/Vein at Midline: The splenic artery/vein at the midline are patent.Brittney Lovell Abdominal [id number] 02:14:58EXAMINATION: US ABDOMINAL DOPPLER CLINICAL HISTORY: Portal vein thrombosis, S P Liver Transplant COMPARISON: CT of the abdomen dated 03/01/2020 TECHNIQUE: Humphrey scale, color Doppler and spectral waveform analysis of the hepatic vasculature. IMPRESSION: 1. PORTAL VEINS: *Main portal vein: Main portal vein is patent with normal directionality of flow. The diameter of the portal vein is normal at 12 m m. Portal vein velocity is 39.1 cm/sec. *Left Portal Vein: The left portal vein is patent.*Right Portal Vein:The right portal vein is patent. 2. HEPATIC VEINS: *Right Hepatic Vein: The right hepatic vein is patent.*Middle Hepatic Vein: The middle hepatic vein is patent.*Left Hepatic Vein: The left hepatic vein is patent. 3. HEPATIC ARTERIES: *Right Hepatic Artery: The right hepatic artery is patent.*Left Hepatic Artery: The left hepatic artery is patent. 4. IVC: The inferior vena cava is patent. 5.SMV: The superior mesenteric vein is patent. 6. SPLENIC ARTERY/VEINS: *Splenic Artery/Vein at Spleen: The splenic artery/vein at the spleen are patent.*Splenic Artery/Vein at Midline: The splenic arnoldo ry/vein at the midline are patent. Interface, Radiology Results Incoming - 03/02/2020 9:18 PM CDT EXAMINATION: US ABDOMINAL DOPPLERCLINICAL HISTORY: Portal vein thrombosis, S P Liver TransplantCOMPARISON: CT of the abdomen dated 2019TECHNIQUE: Humphrey scale, color Doppler and spectral waveform analysis of the hepatic vasculature.IMPRESSION:1. PORTAL VEINS: *Main portal vein: Main portal vein is patent with normal directionality of flow. The diameter of the portal vein is normal at 12 mm. Portal vein velocity is 39.1 cm/sec. *Left Portal Vein: The left portal vein is patent.*Right Portal Vein:The right portal vein is patent.2.HEPATIC VEINS: *Right Hepatic Vein: The right hepatic vein is patent.*Middle Hepatic Vein: The middle hepatic vein is patent.*Left Hepatic Vein: The left hepatic vein is patent.3. HEPATIC ARTERIES: *Right Hepatic Artery: The right hepatic artery is patent.*Left Hepatic Artery: The left hepatic artery is patent.4. IVC: The inferior vena cava is patent.5. SMV: The superior mesenteric vein is patent.6. SPLENIC ARTERY/VEINS: *Splenic Artery/Vein at Spleen: The splenic artery/vein at the spleen are mendoza nt.*Splenic Artery/Vein at Midline: The splenic artery/vein at the midline are patent.[facility] Abdomen Wo [id number] 04:43:55EXAMINATION: CT ABDOMEN WO CONTRAST CLINICAL HISTORY: abdominal post transplant follow up TECHNIQUE: Multiple axial images of the abdomen were obtained without intravenous contrast. Sagittal and coronal computerized reformatted images were also obtained. The lack of intravenous contrast reduces the sensitivity of detecting solid organ disease. CT imaging was performed with iterative reconstruction techniques and/or automated exposure control to reduce radiation dose. COMPARISON: CT abdomen pelvis 01/29/2020 IMPRESSION: LUNG BASES:Trace left pleural effusion. ABDOMEN:Liver: Status post liver transplantation with smooth contours. No focal hepatic lesion although evaluation is limited due to lackof intravenous contrast. Decreased but mildly persistent periportal edema.Gallbladder/Biliary: Status post cholecystectomy. No intrahepatic ductal dilatation. Mild intrahepatic and extrahepatic biliaryductal dilatation suspected.Spleen: Upper limits of normal size measuring up to 12.1 cm..Pancreas: Mildly atrophic without focal ductal dilatation or peripancreatic inflammatory changes.Adrenal Glands:The adrenal glands are unremarkable.Kidneys: Normal in size and shape. No hydronephrosis or renal calculi. No perirenal inflammatory changes. No discrete renal mass although evaluation is limited due to lack of intravenous contrast.Vascular: Abdominal aorta is nonaneurysmal. Prominent mesenteric vascular collateralizationNodes: No retroperitoneal or mesenteric lymphadenopathy.Bowel: Enteric contrast extends to the mid-distal small bowel. No bowel obstruction. Changes of a Demetri-en-Y gastric bypass.Per itoneum/retroperitoneum: No free intraperitoneal air or free fluid. Changes of prior laparotomy. MUSCULOSKELETAL: No aggressive osseous lesions. Minimal multilevel thoracolumbar degenerative disc disease. 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 Multifocal subcutaneous nodular densities in the anterior abdominal wall favored to represent injection sites. SUMMARY:1.Status post liver transplantation with decreasing mildly decreased but persistent nonspecific periportal edema. Consider follow-up CT in 2-3 months.2.Other findings as described above. [facility]-[id number] Interface, Radiology Results - 03/01/2020 11:47 PM CDTFormatting of this note might be differentfrom the original.EXAMINATION: CT ABDOMEN WO CONTRASTCLINICAL HISTORY: abdominal post transplant follow upTECHNIQUE: Multiple axial images of the abdomen were obtained without intravenous contrast. Sagittal and coronal computerized reformatted images were also obtained. The lack of intravenous contrast reduces the sensitivity of detecting solid organ disease. CT imaging was performed with iterativereconstruction techniques and/or automated exposure control to reduce radiation dose. COMPARISON: CT abdomen pelvis 01/29/2020IMPRESSION:LUNG BASES:Trace left pleural effusion.ABDOMEN:Liver: Status post liver transplantation with smooth contours. No focal hepatic lesion although evaluation is limiteddue to lack of intravenous contrast. Decreased but mildly persistent periportal edema.Gallbladder/Biliary: Status post cholecystectomy. No intrahepatic ductal dilatation. Mild intrahepatic and extrahepatic biliary ductal dilatation suspected.Spleen: Upper limits of normal size measuring up to 12.1 cm..Pancreas: Mildly atrophic without focal ductal dilatation or peripancreatic inflammatory changes.Adrenal Glands: The adrenal glands are unremarkable.Kidneys: Normal in size and shape. No hydronephrosisor renal calculi. No perirenal inflammatory changes. No discrete renal mass although evaluation is limited due to lack of intravenous contrast.Vascular: Abdominal aorta is nonaneurysmal. Prominent mesenteric vascular collateralizationNodes: No retroperitoneal or mesenteric lymphadenopathy.Bowel: Enteric contrast extends to the mid-distal small bowel. No bowel obstruction. Changes of a Demetri-en-Y gastric bypass.Peritoneum/retroperitoneum: No free intraperitoneal air or free fluid. Changes of prior laparotomy.MUSCULOSKELETAL: No aggressive osseous lesions. Minimal multilevel thoracolumbar degenerativedisc disease. 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 Multifocal subcutaneous nodular densities in the anterior abdominal wall favored to represent injection sites.SUMMARY:1.Status post liver transplantation with decreasing mildly decreased but persistent nonspecific pe riportal edema. Consider follow-up CT in 2-3 months.2.Other findings as described above.[facility]-[id number] [facility] Abdomen Wo [id number] 04:43:55EXAMINATION: CT ABDOMEN WO CONTRAST CLINICAL HISTORY: abdominal post transplant follow up TECHNIQUE: Multiple axial images of the abdomen were obtained without intravenous contrast. Sagittal and coronal computerized reformatted images were also obtained. The lack of intravenous contrast reduces the sensitivity of detecting solid organ disease. CT imaging was performed with iterative reconstruction techniques and/or automated exposure control to reduce radiation dose. COMPARISON: CT abdomen pelvis 01/29/2020 IMPRESSION: LUNG BASES:Trace left pleural effusion. ABDOMEN:Liver: Status post liver beltran splantation with smooth contours. No focal hepatic lesion although evaluation is limited due to lackof intravenous contrast. Decreased but mildly persistent periportal edema.Gallbladder/Biliary: Status post cholecystectomy. No intrahepatic ductal dilatation. Mild intrahepatic and extrahepatic biliaryductal dilatation suspected.Spleen: Upper limits of normal size measuring up to 12.1 cm..Pancreas: Mildly atrophic without focal ductal dilatation or peripancreatic inflammatory changes.Adrenal Glands:The adrenal glands are unremarkable.Kidneys: Normal in size and shape. No hydronephrosis or renal calculi. No perirenal inflammatory changes. No discrete renal mass although evaluation is limited due to lack of intravenous contrast.Vascular: Abdominal aorta is nonaneurysmal. Prominent mesenteric vascular collateralizationNodes: No retroperitoneal or mesenteric lymphadenopathy.Bowel: Enteric contrast extends to the mid-distal small bowel. No bowel obstruction. Changes of a Demetri-en-Y gastric bypass.Per itoneum/retroperitoneum: No free intraperitoneal air or free fluid. Changes of prior laparotomy. MUSCULOSKELETAL: No aggressive osseous lesions. Minimal multilevel thoracolumbar degenerative disc disease. 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 Multifocal subcutaneous nodular densities in the anterior abdominal wall favored to represent injection sites. SUMMARY:1.Status post liver transplantation with decreasing mildly decreased but persistent nonspecific periportal edema. Consider follow-up CT in 2-3 months.2.Other findings as described above. [facility]-[id number] Interface, Radiology Results Incoming - 03/01/2020 11:47 PM CDTFormatting of this note might be differentfrom the original.EXAMINATION: CT ABDOMEN WO CONTRASTCLINICAL HISTORY: abdominal post transplant follow upTECHNIQUE: Multiple axial images of the abdomen were obtained without intravenous contrast. Sagittal and coronal computerized reformatted images were also obtained. The lack of intravenous contrast reduces the sensitivity of detecting solid organ disease. CT imaging was performed with iterativereconstruction techniques and/or automated exposure control to reduce radiation dose. COMPARISON: CT abdomen pelvis 01/29/2020IMPRESSION:LUNG BASES:Trace left pleural effusion.ABDOMEN:Liver: Status post liver transplantation with smooth contours. No focal hepatic lesion although evaluation is limiteddue to lack of intravenous contrast. Decreased but mildly persistent periportal edema.Gallbladder/Biliary: Status post cholecystectomy. No intrahepatic ductal dilatation. Mild intrahepatic and extrahepatic biliary ductal dilatation suspected.Spleen: Upper limits of normal size measuring up to 12.1 cm..Pancreas: Mildly atrophic without focal ductal dilatation or peripancreatic inflammatory changes.Adrenal Glands: The adrenal glands are unremarkable.Kidneys: Normal in size and shape. No hydronephrosisor renal calculi. No perirenal inflammatory changes. No discrete renal mass although evaluation is limited due to lack of intravenous contrast.Vascular: Abdominal aorta is nonaneurysmal. Prominent mesenteric vascular collateralizationNodes: No retroperitoneal or mesenteric lymphadenopathy.Bowel: Enteric contrast extends to the mid-distal small bowel. No bowel obstruction. Changes of a Demetri-en-Y gastric bypass.Peritoneum/retroperitoneum: No free intraperitoneal air or free fluid. Changes of prior laparotomy.MUSCULOSKELETAL: No aggressive osseous lesions. Minimal multilevel thoracolumbar degenerativedisc disease. 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 Multifocal subcutaneous nodular densities in the anterior abdominal wall favored to represent injection sites.SUMMARY:1.Status post liver transplantation with decreasing mildly decreased but persistent nonspecific pe riportal edema. Consider follow-up CT in 2-3 months.2.Other findings as described above.[facility]-[id number] HospitalXR Ankle 1Vw [id number] 00:50:51EXAMINATION: XR ANKLE 1VW RIGHT, XR FOOT 1VW RIGHT CLINICAL HISTORY: pain after injury COMPARISON: None IMPRESSION: 1. Limited single view examinations of the right foot and ankle demonstrates no discrete fracture. Mild osteoarthritis of the first metatarsophalangeal joint. Alignment is grossly intacton this limited examination. Bones are demineralized. No focal soft tissue swelling. [id number] Interface, Radiology Results 02/14/2020 7:53 PM CDT EXAMINATION: XR ANKLE 1VW RIGHT, XR FOOT 1VW RIGHTCLINICAL HISTORY: pain after injuryCOMPARISON: NoneIMPRESSION:1. Limited single view examinations of the right foot and ankle demonstrates no discrete fracture. Mild osteoarthritis of the first metatarsophalangeal joint. Alignment is grossly intact on this limited examination. Bones are demineralized. No focal soft tissue swelling.[id number] 1Vw [id number] 00:50:51EXAMINATION: XR ANKLE 1VW RIGHT, XR FOOT 1VW RIGHT CLINICAL HISTORY: pain after injury COMPARISON: None IMPRESSION: 1. Limited single view examinations of the right foot and ankle demonstrates no discrete fracture. Mild osteoarthritis of the first metatarsophalangeal joint. Alignment is grossly intacton this limited examination. Bones are demineralized. No focal soft tissue swelling. [id number] HmInterface, Radiology Results 02/14/2020 7:53 PM CDT EXAMINATION: XR ANKLE 1VW RIGHT, XR FOOT 1VW RIGHTCLINICAL HISTORY: pain after injuryCOMPARISON: NoneIMPRESSION:1. Limited single view examinations of the right foot and ankle demonstrates no discrete fracture. Mild osteoarthritis of the first metatarsophalangeal joint. Alignment is grossly intact on this limited examination. Bones are demineralized. No focal soft tissue swelling.[id number] 1Vw [id number] 00:50:51EXAMINATION: XR ANKLE 1VW RIGHT, XR FOOT 1VW RIGHT CLINICAL HISTORY: pain after injury COMPARISON: None IMPRESSION: 1. Limited single view examinations of the right foot and ankle demonstrates no discrete fracture. Mild osteoarthritis of the first metatarsophalangeal joint. Alignment is grossly intacton this limited examination. Bones are demineralized. No focal soft tissue swelling. [id number] HmInterface, Radiology Results 02/14/2020 7:53 PM CDT EXAMINATION: XR ANKLE 1VW RIGHT, XR FOOT 1VW RIGHTCLINICAL HISTORY: pain after injuryCOMPARISON: NoneIMPRESSION:1. Limited single view examinations of the right foot and ankle demonstrates no discrete fracture. Mild osteoarthritis of the first metatarsophalangeal joint. Alignment is grossly intact on this limited examination. Bones are demineralized. No focal soft tissue swelling.[id number]XR Foot 1Vw [id number] 00:50:51EXAMINATION: XR ANKLE 1VW RIGHT, XR FOOT 1VW RIGHT CLINICAL HISTORY: pain after injury COMPARISON: None IMPRESSION: 1. Limited single view examinations of the right foot and ankle demonstrates no discrete fracture. Mild osteoarthritis of the first metatarsophalangeal joint. Alignment is grossly intacton this limited examination. Bones are demineralized. No focal soft tissue swelling. [id number] HmInterface, Radiology Results 02/14/2020 7:53 PM CDT EXAMINATION: XR ANKLE 1VW RIGHT, XR FOOT 1VW RIGHTCLINICAL HISTORY: pain after injuryCOMPARISON: NoneIMPRESSION:1. Limited single view examinations of the right foot and ankle demonstrates no discrete fracture. Mild osteoarthritis of the first metatarsophalangeal joint. Alignment is grossly intact on this limited examination. Bones are demineralized. No focal soft tissue swelling.[id number] Gastric [id number] 21:27:44PROCEDURE: [place] GASTRIC EMPTYING INDICATION: N V after eating RUQ pain sp liver Trp s p gastric bypass. COMPARISON: CT abdomen pelvis dated January 29, 2020. Abdominal ultrasound dated February 10, 2020. TECHNIQUE: 0.5 millicuries of [id number] colloid were mixed with an egg and cooked. The egg was fed to the patient and dynamic imaging of the abdomen in the anterior and posterior projections was performed for 90 minutes. Quantification of gastric emptying was performed using the geometric mean ofthe anterior and posterior projections. Delayed imaging at 4 hours was also performed. FINDINGS: The 90 minute half- time of emptying is 139 minutes. Normal is 45 to 100 minutes. No significant gastric retention on 4 hour delayed imaging. IMPRESSION: 1.Mildly delayed gastric emptying during the initial 90 minute study. No significant gastric retention after 4 hours. Findings are uncertain in the setting of gastric bypass. [facility]-[id number] Dictated and approved by interventional radiology tech/fellow: Felix Klein M.D. I, Russ Wing MD, personally reviewed the images and resident's/fellow's findings and agree with the final report.[facility], Radiology Results - 02/13/2020 4:30 PM CDT PROCEDURE: NM GASTRIC EMPTYINGINDICATION: NV after eating RUQ pain sp liver Trp s p gastric bypass. COMPARISON: CT abdomen pelvis dated January 29, 2020. Abdominal ultrasound dated February 10, 2020.TECHNIQUE: 0.5 millicuries of [id number] colloid were mixed with an egg and cooked. The egg was fed to the patient and dynamic imaging of the abdomen in the anterior and posterior projections was performed for 90 minutes. Quantification of gastric emptying was performed using the geometric mean of the anterior and posterior projections. Delayed imaging at 4 hours was also performed. FINDINGS: The 90 minute half-time of emptying is 139 minutes. Normal is 45 to 100 minutes. No significant gastric retention on 4 hour delayed imaging. IMPRESSION: 1.Mildly delayed gastric emptying during the initial 90 minute study. No significant gastric retention after 4 hours. Findings are uncertain in the setting of gastric bypass.[facility]-[id number] approved by interventional radiology tech/fellow: Nicolette Lewis, Russ Wing MD, personally reviewed the images and resident's/fellow's findings and agree with the final report.[facility] Gastric [id number] 21:27:44PROCEDURE: NM GASTRIC EMPTYING INDICATION: N V after eating RUQ pain sp liver Trp s p gastric bypass. COMPARISON: CT abdomen pelvis dated January 29, 2020. Abdominal ultrasound dated February 10, 2020. TECHNIQUE: 0.5 millicuries of [id number] colloid were mixed with an egg and cooked. The egg was fed to the patient and dynamic imaging of the abdomen in the anterior and posterior projections was pe rformed for 90 minutes. Quantification of gastric emptying was performed using the geometric mean ofthe anterior and posterior projections. Delayed imaging at 4 hours was also performed. FINDINGS: The 90 minute half-time of emptying is 139 minutes. Normal is 45 to 100 minutes. No significant gastric retention on 4 hour delayed imaging. IMPRESSION: 1.Mildly delayed gastric emptying during the initial 90 minute study. No significant gastric retention after 4 hours. Findings are uncertain in the setting of gastric bypass. [facility]-[id number] Dictated and approved by interventional radiology tech/fellow: Felix Klein M.D. I, Russ Wing MD, personally reviewed the images and resident's/fellow's findings and agree with the final report.[facility], Radiology Results 02/13/2020 4:30 PM CDT PROCEDURE: NM GASTRIC EMPTYINGINDICATION: NV after eating RUQ pain sp liver Trp s p gastric bypass. COMPARISON: CT abdomen pelvis dated January 29, 2020. Abdominal ultrasound dated February 10, 2020.TECHNIQUE: 0.5 millicuries of [id number] colloid were mixed with an egg and cooked. The egg was fed to the patient and dynamic imaging of the abdomen in the anterior and posterior projections was performed for 90 minutes. Quantification of gastric emptying was performed using the geometric mean of the anterior and posterior projections. Delayed imaging at 4 hours was also performed. FINDINGS: The 90 minute half- time of emptying is 139 minutes. Normal is 45 to 100 minutes. No significant gastric retention on 4 hour delayed imaging. IMPRESSION: 1.Mildly delayed gastric emptying during the initial 90 minute study. No significant gastric ret ention after 4 hours. Findings are uncertain in the setting of gastric bypass.[facility]-[id number] approved by interventional radiology tech/fellow: Nicolette Lewis, Russ Wing MD, personally reviewed the images and resident's/fellow's findings and agree with the final report.[facility] US Abdomen [id number] 22:19:39EXAMINATION: US ABDOMEN COMPLETE CLINICAL HISTORY: elevated LFTs s p OLT COMPARISON: 01/29/2020 TECHNIQUE: Ultrasound evaluation of the abdomen. FINDINGS: LIVER: Patient is status post hepatic transplantation. Questionable 2.7 cm subcapsular cyst in the right lobe of the liver versus a small amount of postoperative perihepatic fluid. Increased hepatic echogenicity suggests mild fatty infiltration. BILIARY: Gallbladder is accordingly absent.. Common bile duct measures 8 mm, slightly prominent, may be related to postcholecystectomy state.. PANCREAS: Incompletely visualized due to overlying bowel gas. SPLEEN: Enlarged measuring 13.5 cm, stable. KIDNEYS: Normal size bilaterally. No hydronephrosis or solid mass lesion. VASCULATURE: Visualized aorta and IVC are within normal limits. Portal vein is patent. PERITONEUM: No free fluid. IMPRESSION: 1.Status post hepatic transplantation. Mild fatty infiltration of the liver. 2.7 cm subcapsular cyst right hepatic lobe versus small amount of postoperative perihepatic fluid. 2.Mild splenomegaly, stable. 3.Additional findings as above. [facility]-[id number] Interface, Radiology Results 02/10/2020 5:22 PM CDT EXAMINATION: US ABDOMEN COMPLETECLINICAL HISTORY: elevated LFTs s p OLTCOMPARISON: 01/29/2020TECHNIQUE: Ultrasound evaluation of the abdomen.FINDINGS:LIVER: Patient is status post hepatic transplantation. Questionable 2.7 cm subcapsular cyst in the right lobe of theliver versus a small amount of postoperative perihepatic fluid. Increased hepatic echogenicity suggests mild fatty infiltration.BILIARY: Gallbladder is accordingly absent.. Common bile duct measures 8mm, slightly prominent, may be related to postcholecystectomy state..PANCREAS: Incompletely visualized due to overlying bowel gas.SPLEEN: Enlarged measuring 13.5 cm, stable.KIDNEYS: Normal size bilaterally. No hydronephrosis or solid mass lesion.VASCULATURE: Visualized aorta and IVC are within normal limits. Portal vein is patent.PERITONEUM: No free fluid.IMPRESSION:1.Status post hepatic transplantation. Mild fatty infiltration of the liver. 2.7 cm subcapsular cyst right hepatic lobe versus sma ll amount of postoperative perihepatic fluid.2.Mild splenomegaly, stable.3.Additional findings as above.[facility]-[id number] HospitalUS Abdomen [id number] 22:19:39EXAMINATION: US ABDOMEN COMPLETE CLINICAL HISTORY: elevated LFTs s p OLT COMPARISON: 01/29/2020 TECHNIQUE: Ultrasound evaluation of the abdomen. FINDINGS: LIVER: Patient is status post hepatic beltran splantation. Questionable 2.7 cm subcapsular cyst in the right lobe of the liver versus a small amount of postoperative perihepatic fluid. Increased hepatic echogenicity suggests mild fatty infiltration. BILIARY: Gallbladder is accordingly absent.. Common bile duct measures 8 mm, slightly prominent, may be related to postcholecystectomy state.. PANCREAS: Incompletely visualized due to overlying bowel gas. SPLEEN: Enlarged measuring 13.5 cm, stable. KIDNEYS: Normal size bilaterally. No hydronephrosis or solid mass lesion. VASCULATURE: Visualized aorta and IVC are within normal limits. Portal vein is patent. PERITONEUM: No free fluid. IMPRESSION: 1.Status post hepatic transplantation. Mild fatty infiltration of the liver. 2.7 cm subcapsular cyst right hepatic lobe versus small amount of postoperative perihepatic fluid. 2.Mild splenomegaly, stable. 3.Additional findings as above. [facility]-[id number] Interface, Radiology Results 02/10/2020 5:22 PM CDT EXAMINATION: US ABDOMEN COMPLETECLINICAL HISTORY: elevated LFTs s p OLTCOMPARISON: 01/29/2020TECHNIQUE: Ultrasound evaluation of the abdomen.FINDINGS:LIVER: Patient is status post hepatic transplantation. Questionable 2.7 cm subcapsular cyst in the right lobe of theliver versus a small amount of postoperative perihepatic fluid. Increased hepatic echogenicity suggests mild fatty infiltration.BILIARY: Gallbladder is accordingly absent.. Common bile duct measures 8mm, slightly prominent, may be related to postcholecystectomy state..PANCREAS: Incompletely visualized due to overlying bowel gas.SPLEEN: Enlarged measuring 13.5 cm, stable.KIDNEYS: Normal size bilaterally. No hydronephrosis or solid mass lesion.VASCULATURE: Visualized aorta and IVC are within normal limits. Portal vein is patent.PERITONEUM: No free fluid.IMPRESSION:1.Status post hepatic transplantation. Mild fatty infiltration of the liver. 2.7 cm subcapsular cyst right hepatic lobe versus sma ll amount of postoperative perihepatic fluid.2.Mild splenomegaly, stable.3.Additional findings as above.[facility]-[id number] HospitalBlood culture, [id number] 15:42:12 Test Item Value Reference Range Interpretation Comments Blood culture isolate, No fungus isolated in 8 fungus (test code = days. 976) [facility] culture, [id number] 15:42:12 Test Item Value Reference Range Interpretation Comments Blood culture isolate, No fungus isolated in 8 fungus (test code = days. 976) [facility] W And Or Wo [id number] 21:44:06 EXAMINATION: CT ANGIOGRAM ABDOMEN PELVIS W AND OR WO CONTRAST CLINICAL HISTORY: s p liver transplant increasing LFTs COMPARISON: 12/11/2019 TECHNIQUE: Multiple CT angiographic images of the abdomen and pelvis were obtained during intravenous administration of contrast. Multiple computerized reformatted images as well as 3-D volume rendered images were also obtained. CT imaging was performed with iterative reconstruction technique and/or automated exposure control to reduce radiation dose. FINDINGS: CTA:1.Widely patent abdominal aorta. No aneurysmal dilatation, flow limiting stenosis, or evidenceof dissection. 2.The celiac, superior mesenteric, and inferior mesenteric arteries are widely patent. Proper hepatic artery origin anastomosis directly off the aorta appears widely patent. 3.2 right and two left renal arteries are patent. 4.The common iliac, external iliac, internal iliac, common femoral, and visualized portions of the superficial femoral, and profunda femoral arteries are widely patent. ABDOMEN/PELVIS:1.Mild dependent atelectasis in the visualized lung bases. 2.Orthotopic liver transplant. Nonspecific periportal edema, can be seen post transplant but also seen with other etiologies such as acute hepatitis, transplant rejection, and cholangitis. Recommend correlation. The gallbladder is surgically absent. 3.Normal adrenals. Top normal size spleen. Marked atrophy of the pancreas. 4.Kidneys are within normal limits. 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 Normal small bowel. Unremarkable colon. 6.The bladder is mildly distended but otherwise unremarkable.Trace free fluid in the deep pelvis. Unremarkable uterus. 7.No acute osseous abnormality. 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 IMPRESSION:1.Patent liver transplant arterial vas culature.2.Nonspecific periportal edema, can be seen post transplant but also seen with other etiologies such as acute hepatitis, transplant rejection, and cholangitis. Recommend correlation.3.Other findings as above. [id number] Interface, Radiology Results Incoming - 01/29/2020 4:47 PM CDT EXAMINATION: CT ANGIOGRAM ABDOMEN PELVISW AND OR WO CONTRASTCLINICAL HISTORY: s p liver transplant increasing LFTsCOMPARISON: 12/11/2019TECHNIQUE: Multiple CT angiographic images of the abdomen and pelvis were obtained during intravenous administration of contrast. Multiple computerized reformatted images as well as 3-D volume rendered images were also obtained.CT imaging was performed with iterative reconstruction technique and/or automated exposure control to reduce radiation dose.FINDINGS:CTA:1.Widely patent abdominal aorta. No aneurysmal dilatation, flow limiting stenosis, or evidence of dissection.2.The celiac, superior mesenteric, and inferior mesenteric arteries are widely patent. Proper hepatic artery origin anastomosis directly off the aorta appears widely patent.3.2 right and two left renal arteries are patent.4.The common iliac, external iliac, internal iliac, common femoral, and visualized portions of the superficial femo ral, and profunda femoral arteries are widely patent.ABDOMEN/PELVIS:1.Mild dependent atelectasis in the visualized lung bases.2.Orthotopic liver transplant. Nonspecific periportal edema, can be seen post transplant but also seen with other etiologies such as acute hepatitis, transplant rejection, and c holangitis. Recommend correlation. The gallbladder is surgically absent.3.Normal adrenals. Top normal size spleen. Marked atrophy of the pancreas.4.Kidneys are within normal limits. 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 Normal small bowel. Unremarkable colon.6.The bladder is mildly distended but otherwise unremarkable. Trace free fluid in the deep pelvis. Unremarkable uterus.7.No acute osseous abnormality. 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 Recommend correlation.3.Other findings as above.[facility]-[id number] HospitalCTA Abdomen Pelvis W And Or Wo [id number] 21:44:06EXAMINATION: CT ANGIOGRAM ABDOMEN PELVIS W AND OR WO CONTRAST CLINICAL HISTORY: s p liver transplant increasing LFTs COMPARISON: 12/11/2019 TECHNIQUE: Multiple CT angiographic images of the abdomen and pelvis were obtained during intravenous administration of contrast. Multiple computerized reformatted images as well as 3-D volume rendered images were also obtained. CT imaging was performed with iterative reconstruction technique and/or automated exposure control to reduce radiation dose. FINDINGS: CTA:1.Widely patent abdominal aorta. No aneurysmal dilatation, flow limiting stenosis, or evidenceof dissection. 2.The celiac, superior mesenteric, and inferior mesenteric arteries are widely patent. Proper hepatic artery origin anastomosis directly off the aorta appears widely patent. 3.2 right and two left renal arteries are patent. 4.The common iliac, external iliac, internal iliac, common femoral, and visualized portions of the superficial femoral, and profunda femoral arteries are widely patent. ABDOMEN/PELVIS:1.Mild dependent atelectasis in the visualized lung bases. 2.Orthotopic liver transplant. Nonspecific periportal edema, can be seen post transplant but also seen with other etiologies such as acute hepatitis, transplant rejection, and cholangitis. Recommend correlation. The gallbladder is surgically absent. 3.Normal adrenals. Top normal size spleen. Marked atrophy of the pancreas. 4.Kidneys are within normal limits. 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 Normal small bowel. Unremarkable colon. 6.The bladder is mildly distended but otherwise unremarkable.Trace free fluid in the deep pelvis. Unremarkable uterus. 7.No acute osseous abnormality. 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 IMPRESSION:1.Patent liver transplant arterial vas culature.2.Nonspecific periportal edema, can be seen post transplant but also seen with other etiologies such as acute hepatitis, transplant rejection, and cholangitis. Recommend correlation.3.Other findings as above. [facility]-[id number] Interface, Radiology Results Incoming - 01/29/2020 4:47 PM CDT EXAMINATION: CT ANGIOGRAM ABDOMEN PELVISW AND OR WO CONTRASTCLINICAL HISTORY: s p liver transplant increasing LFTsCOMPARISON: 12/11/2019TECHNIQUE: Multiple CT angiographic images of the abdomen and pelvis were obtained during intravenous administration of contrast. Multiple computerized reformatted images as well as 3-D volume rendered images were also obtained.CT imaging was performed with iterative reconstruction technique and/or automated exposure control to reduce radiation dose.FINDINGS:CTA:1.Widely patent abdominal aorta. No aneurysmal dilatation, flow limiting stenosis, or evidence of dissection.2.The celiac, superior mesenteric, and inferior mesenteric arteries are widely patent. Proper hepatic artery origin anastomosis directly off the aorta appears widely patent.3.2 right and two left renal arteries are patent.4.The common iliac, external iliac, internal iliac, common femoral, and visualized portions of the superficial femo ral, and profunda femoral arteries are widely patent.ABDOMEN/PELVIS:1.Mild dependent atelectasis in the visualized lung bases.2.Orthotopic liver transplant. Nonspecific periportal edema, can be seen post transplant but also seen with other etiologies such as acute hepatitis, transplant rejection, and c holangitis. Recommend correlation. The gallbladder is surgically absent.3.Normal adrenals. Top normal size spleen. Marked atrophy of the pancreas.4.Kidneys are within normal limits. 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 Normal small bowel. Unremarkable colon.6.The bladder is mildly distended but otherwise unremarkable. Trace free fluid in the deep pelvis. Unremarkable uterus.7.No acute osseous abnormality. 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 Recommend correlation.3.Other findings as above.[id number] HospitalUrine [id number] 18:36:20 Test Item Value Reference Range Interpretation Comments Urine culture (test code = SEE COMMENT [id number]) [facility] [id number] 18:36:20 Test Item Value Reference Range Interpretation Comments Urine culture (test code = SEE COMMENT [id number]) [address]2020-08-19 16:01:02 Test Item Value Reference Range Interpretation Comments Ventricular rate (test code = 253) Atrial rate (test code = 255) IN interval (test code = 266) QRSD interval (test code = 260) QT interval (test code = 264) QTC interval (test code = 265) P axis 1 (test code = 267) QRS axis 1 (test code = 268) T wave axis (test code = 270) EKG impression (test Normal sinus code = 273) rhythm-Normal ECG-In automated comparison with ECG of 30-DEC-2019 07:35,-No significant change was found- [address]2020-08-19 16:01:02 Test Item Value Reference Range Interpretation Comments Ventricular rate (test code = 253) Atrial rate (test code = 255) IN interval (test code = 266) QRSD interval (test code = 260) QT interval (test code = 264) QTC interval (test code = 265) P axis 1 (test code = 267) QRS axis 1 (test code = 268) T wave axis (test code = 270) EKG impression (test Normal sinus code = 273) rhythm-Normal ECG-In automated comparison with ECG of 30-DEC-2019 07:35,-No significant change was found- [facility]2020-01-31 14:29:00Surgical Pathology Report Case: [id number] Authorizing Provider: Claire Brink MD Collected: 07/11/2019 1319 Ordering Location: [address] Med/Surg Received: 07/11/2019 1417 Pathologist: Ashley Kc MD Specimen: Biopsy, Gastric STOMACH, BIOPSY: - OXYNTIC MUCOSA WITH MILD CHRONIC INACTIVE GASTRITIS - NO INTESTINAL METAPLASIA, DYSPLASIA OR MALIGNANCY IS SEEN - NEGATIVE FOR H. PYLORI ORGANISMS Signing Pathologist Direct Phone Line: [phone] signed by Ashley Kc MD on 07/12/2019 at 2:29 [id number]; [id number] Biopsy, gastricSpecimen is received in fixative and designated as "biopsy, gastric" and consists of three pink-ghosh tissue fragments ranging in size from 0.2 to 0.3 cm in greatest dimension. The tissue fragment is entirely submitted into A1. Performed The interpretation of this case included the useof immunohistochemistry or special stains.Warthin-starry stain: Negative for Helicobacter Pylori organismsControl Slides Examined: In-house known positive controls were evaluated along with the test tissue. These control slides run alongside of the patients sample show appropriate staining. Internal positive and negative controls when available are evaluated Immunohistochemistry technical testing was performed at [facility], Pathology Laboratory where it was [...] qualified to perform high complexity clinical laboratory testing.[facility], Depart ent of Pathology, [address] [place] [address], [facility], Department of Pathology, [address] [place] [address], [facility], Department of Pathology, [address] [place] [address], E/S, ABDOMINAL, [id number] 19:39:00Abdomen limited area? Add comment if clarification is [...] MDReport Verified Date/Time: 07/11/2019 19:39:14 Reading Location: [address] Consult Reading Room PREGNANCY SCREEN, [id number] 12:45:00 Test Item Value Reference Range Interpretation Comments TEST URINE (BEAKER) (test Negative code = 583) COMPREHENSIVE METABOLIC [id number] 05:16:00 Test Item Value Reference Range Interpretation [...] S NOT APPLICABLE FOR DIALYSIS PATIEN TS. Quality System Manager ID - [id number] 05:05:00 Test Item Value Reference Range Interpretation [...] Information (Auto Output)CBC W/PLT COUNT & AUTO [id number] 04:48:00 Test Item Value Reference Range Interpretation [...] (BEAKER) (test code = 2801) HEMOGLOBIN AND [id number] 15:40:00 Test Item Value Reference Range Interpretation Comments HEMOGLOBIN (BEAKER) (test code = 11.8 GM/DL 12.0-15.5 L 410) HEMATOCRIT (BEAKER) (test code = 38.5 % 36.0-46.0 411) COMPREHENSIVE METABOLIC [id number] 06:22:00 Test Item Value Reference Range Interpretation [...] S NOT APPLICABLE FOR DIALYSIS PATIEN TS. Quality System Manager ID - [id number] W/PLT COUNT & AUTO [id number] 05:51:00 Test Item Value Reference Range Interpretation [...] (BEAKER) (test code = 2801) CBC W/AUTO [id number] 06:50:00 Test Item Value Reference Range Interpretation [...] 0.00 K/mm3 0.0-0.1 N NRBC#) COMPREHENSIVE METABOLIC [id number] 06:49:00 Test Item Value Reference Range Interpretation [...] UNITS/L 38-126 H (test code = ALKP) [id number] 06:49:00 Test Item Value Reference Range Interpretation Comments MAGNESIUM (test code = MAG) 2.0 MG/DL 1.6-2.3 N - MRI BRAIN W/O [id number] 18:40:00 Patient Name: LAMINE DOSHI Unit No: [id number] EXAMS: CPT CODE: [id number] MRI BRAIN W/O CONTRAST [id number] Location: T 18 MRI brain, 01/25/19 COMPARISON [...] areas of focal cortical dysplasia or heterotopic humphrey matter formation. No definite vascular abnormality is seen. DWI was performed and is unremarkable. No abnormal restriction is seen.Assessment of the white matter is unremarkable. No sinus disease is seen IMPRESSION: Normal MRI examination of the brain without contrast without etiology to account for seizure activity identified at 1840 Reported and signed by: Claudia Ayala MD [facility] NAME: LAMINE DOSHI PHYS: [place] [address] : 1990 AGE: 29 SEX: F LOC: Z.086 B PHONE #: [phone] EXAM DATE: 01/25/2019 STATUS: ADM IN FAX #: [phone] RADIOLOGY NO: PAGE 1 Signed Report (CONTINUED) Patient Name: LAMINE DOSHI Unit No: [id number] EXAM S: CPT CODE: [id number] MRI BRAIN W/O CONTRAST 13983 <Continued> CC: Alli Mars MD; Cayla Sevilla MD Technologist: JHON MAYS RT(R)(MR)(CT) Transcrpt Date/Tm/Trnsp: 01/25/2019 (1839) [email or web address] Orig Print D/T: S: 01/25/2019 (1842) [facility] NAME: LAMINE DOSHI PHYS: [place] [address] : 1990 AGE: 29 SEX: F LOC: Z.621 B PHONE #: [phone] EXAM DATE: 01/25/2019 STATUS: ADM IN FAX #: [phone] RADIOLOGY NO: PAGE 2 Signed Report COMPREHENSIVE METABOLIC [id number] 18:39:00 Test Item Value Reference Range Interpretation [...] UNITS/L 38-126 H (test code = ALKP) [id number] 18:39:00 Test Item Value Reference Range Interpretation Comments ACETAMINOPHEN (test code = < 10.0 MCG/ML 10-30 L ACET) [id number] 18:39:00 Test Item Value Reference Range Interpretation Comments SALICYLATE (test code = DAISY) < 1.0 MG/DL <2.0 - XR CHEST [id number] 14:38:00 Patient Name: LAMINE DOSHI Unit No: [id number] EXAMS: CPT CODE: [id number] XR CHEST 1V 54807 Site ID: [id number] HISTORY: Pneumonia FINDINGS: The lungs are clear and normally expanded. The heart and pulmonary vasculatureis normal. Osseous structures are unremarkable. IMPRESSION: Negative chest X-ray. at 1438 Reported and signed by: Esa Calderon MD CC: Alli Mars MD; Cayla Sevilla MD Technologist: Steven Hanson RT(R) Transcrpt Date/Tm/Trnsp: 01/25/2019 (5971) [email or web address] Orig Print D/T: S: 01/25/2019 (8725) [facility] NAME: LAMINE DOSHI [address] PHYS: [place] [address] : 1990 AGE: 29 SEX: F LOC: Z.621 B PHONE #: [phone] EXAM DATE: 01/25/2019 STATUS:ADM IN FAX #: [phone] RADIOLOGY NO: PAGE 1 Signed Report COMPREHENSIVE METABOLIC [id number] 06:28:00 Test Item Value Reference Range Interpretation [...] 0-189 mg/dL VERY HIGH...... ...>/= 190 mg/dL [id number] 06:28:00 Test Item Value Reference Range Interpretation Comments PHOSPHOROUS (test code = PHOS) 2.9 MG/DL 2.5-4.5 [id number] 06:28:00 Test Item Value Reference Range Interpretation Comments MAGNESIUM (test code = MAG) 1.4 MG/DL 1.6-2.3 L THYROID STIMULATING [id number] 06:28:00 Test Item Value Reference Range Interpretation Comments THYROID STIMULATING 6.070 MIU/L 0.465-4.68 H Please b e aware that HORMONE (test code = bias re sults for TSH TSH) may occur forpa tient who are taking Biotin suppleme nts. COMPREHENSIVE METABOLIC [id number] 06:10:00 Test Item Value Reference Range Interpretation [...] 0-189 mg/dL VERY HIGH...... ...>/= 190 mg/dL [id number] 06:10:00 Test Item Value Reference Range Interpretation Comments PHOSPHOROUS (test code = PHOS) 2.9 MG/DL 2.5-4.5 [id number] 06:10:00 Test Item Value Reference Range Interpretation Comments MAGNESIUM (test code = MAG) 1.4 MG/DL 1.6-2.3 L THYROID STIMULATING [id number] 06:10:00 Test Item Value Reference Range Interpretation Comments THYROID STIMULATING HORMONE (test code MIU/L 0.465-4.68 = TSH) COMPREHENSIVE METABOLIC [id number] 06:08:00 Test Item Value Reference Range Interpretation [...] LDL (test MG/DL 0-99 code = LDL) [id number] 06:08:00 Test Item Value Reference Range Interpretation Comments PHOSPHOROUS (test code = PHOS) 2.9 MG/DL 2.5-4.5 [id number] 06:08:00 Test Item Value Reference Range Interpretation Comments MAGNESIUM (test code = MAG) 1.4 MG/DL 1.6-2.3 L THYROID STIMULATING [id number] 06:08:00 Test Item Value Reference Range Interpretation Comments THYROID STIMULATING HORMONE (test code MIU/L 0.465-4.68 = TSH) GLYCOSYLATED HEMOGLOBIN [id number] 06:05:00 Test Item Value Reference Range Interpretation Comments GLYCOSYLATED 5.3 % 4.8-5.9 N Any condition t hat HEMOGLOBIN (HA1C) shortens e rythocyte (test code = survival or dec reasesmean GLYHGB) erythrocyte age (e.g., recovery from a cute blood loss,hemolytic anemia) will falsely lo wer HGBA1c resultsregardle ss of the method used. H GBA1c results from ayaan katz HbSS, HbCC, and HbSc must be interpreted with cautiongiven th e pathological pr ocesses, including anemia,increase d red cell turnover, trans fusion requirements, thatadversely i mpact HGBA1c as a mar ker of long-term glycemiccontrol . Alternative for ms of testing such as fructosaminesho uld be considered for these patients. MEAN BLOOD GLUCOSE 105 MG/DL 70-110 N (test code = MBG) COMPREHENSIVE METABOLIC [id number] 06:04:00 Test Item Value Reference Range Interpretation [...] LDL (test MG/DL 0-99 code = LDL) [id number] 06:04:00 Test Item Value Reference Range Interpretation Comments PHOSPHOROUS (test code = PHOS) 2.9 MG/DL 2.5-4.5 [id number] 06:04:00 Test Item Value Reference Range Interpretation Comments MAGNESIUM (test code = MAG) 1.4 MG/DL 1.6-2.3 L THYROID STIMULATING [id number] 06:04:00 Test Item Value Reference Range Interpretation Comments THYROID STIMULATING HORMONE (test code MIU/L 0.465-4.68 = TSH) LACTIC [id number] 05:46:00 Test Item Value Reference Range Interpretation Comments LACTIC ACID (test code = LACT) 1.8 MMOL/L 0.7-2.1 N CBC W/AUTO [id number] 05:37:00 Test Item Value Reference Range Interpretation [...] = 0.00 K/mm3 0.0-0.1 N NRBC#) URINALYSIS [id number] 04:29:00 Test Item Value Reference Range Interpretation [...] UACULT) Criteria SOURCE OF URINE: CLEAN CATCHUA [id number] 04:29:00 Test Item Value Reference Range Interpretation Comments UA RBC (test code = RBCU) 3-5 RBC/HPF 0-3 A UA WBC (test code = XWBCU) 10-20 WBC/HPF 0-5 A UA EPITHELIAL CELLS (test MODERATE EPI/HPF FEW A code = EPIU) UA BACTERIA (test code = MANY NONE A XBACU) SOURCE OF URINE: CLEAN CATCHURINALYSIS [id number] 03:56:00 Test Item Value Reference Range Interpretation [...] = UACULT) SOURCE OF URINE: CLEAN CATCHUA [id number] 03:56:00 Test Item Value Reference Range Interpretation Comments UA RBC (test code = RBCU) RBC/HPF 0-3 UA WBC (test code = XWBCU) WBC/HPF 0-5 UA EPITHELIAL CELLS (test code = EPI/HPF FEW EPIU) UA BACTERIA (test code = XBACU) NONE SOURCE OF URINE: CLEAN CATCHDRUGS OF ABUSE SCREEN [id number] 03:56:00 Test Item Value Reference Range Interpretation [...] 25 (test code = PHENCU) ng/mL URINALYSIS [id number] 03:56:00 Test Item Value Reference Range Interpretation [...] = UACULT) SOURCE OF URINE: CLEAN CATCHUA [id number] 03:56:00 Test Item Value Reference Range Interpretation Comments UA RBC (test code = RBCU) RBC/HPF 0-3 UA WBC (test code = XWBCU) WBC/HPF 0-5 UA EPITHELIAL CELLS (test code = EPI/HPF FEW EPIU) UA BACTERIA (test code = XBACU) NONE SOURCE OF URINE: CLEAN CATCHDRUGS OF ABUSE SCREEN [id number] 03:54:00 Test Item Value Reference Range Interpretation [...] PHENCU) ng/mL - CT ABD PELVIS W/O [id number] 00:00:00 Patient Name: LAMINE DOSHI Unit No: [id number] EXAMS: CPT CODE: [id number] CT ABD PELVIS W/O CONT 88885 Dictation location: H37. CT ABDOMEN AND PELVIS [...] to steatosis. Cholecystectomy. Gastric bypass. The appendix. [facility] NAME: LAMINE DOSHI [id number] PHYS: [place] [address] : 1990 AGE: 29 SEX: F LOC: Z.621 B PHONE #: [phone] EXAM DATE: 01/24/2019 STATUS: ADM IN FAX #: [phone] RAD #: D/C DT PAGE 1 Signed Report (CONTINUED) Patient Name: LAMINE DOSHI Unit No: [id number] EXAMS: CPT CODE: [id number] CT ABD PELVIS W/O CONT 03063 <Continued> at 0000 Reported and signed by: Luz Elena Rodriguez MD CC: Alli Mars MD; Cayla Sevilla MD Technologist: Taryn Gandara RT(R)(CT); Donald Valencia CTDI: DLP: Trnscrpt: 01/25/2019 (0000) [email or web address] TROY Villarreal NAME: LAMINE DOSHI [address] PHYS: [place] [address] : 1990 AGE: 29 SEX: F LOC: Z.621 B PHONE #: [phone] EXAM DATE: 01/24/2019 STATUS: ADM IN FAX #: [phone] RAD #: D/C DT PAGE 2 Signed Report Patient Name: LAMINE DOSHI Unit No: [id number] EXAMS: CPT CODE: [id number] CT ABD PELVIS W/O CONT 19762 <Continued> Orig Print D/T: S: 01/25/2019 (0003) [facility] NAME: LAMINE DOSHI [id number] PHYS: [place] [address] : 1990 AGE: 29 SEX: F LOC: Z.621 B PHONE #: [phone] EXAM DATE: 01/24/2019 STATUS: ADM IN FAX #:[phone] RAD #: D/C DT PAGE 3 Signed ReportACUTE HEPATITIS [id number] 19:51:00 Test Item Value Reference Range Interpretation Comments AB HEPATITIS A IGM (test code = NEGATIVE NONREACTIVE HAVMAB) AG HEPATITIS B SURFACE (test code = NEGATIVE NONREACTIVE HBSAG) AB HEPATITIS B CORE IGM (test code = NEGATIVE NONREACTIVE HBCMAB) AB HEPATITIS C (test code = HCVAB) NEGATIVE NONREACTIVE ACUTE HEPATITIS [id number] 19:44:00 Test Item Value Reference Range Interpretation Comments AB HEPATITIS A IGM (test code = NEGATIVE NONREACTIVE HAVMAB) AG HEPATITIS B SURFACE (test code = NEGATIVE NONREACTIVE HBSAG) AB HEPATITIS B CORE IGM (test code = NEGATIVE NONREACTIVE HBCMAB) AB HEPATITIS C (test code = HCVAB) NONREACTIVE ACUTE HEPATITIS [id number] 19:39:00 Test Item Value Reference Range Interpretation Comments AB HEPATITIS A IGM (test code = NONREACTIVE HAVMAB) AG HEPATITIS B SURFACE (test code = NEGATIVE NONREACTIVE HBSAG) AB HEPATITIS B CORE IGM (test code = NEGATIVE NONREACTIVE HBCMAB) AB HEPATITIS C (test code = HCVAB) NONREACTIVE ACUTE HEPATITIS [id number] 19:34:00 Test Item Value Reference Range Interpretation Comments AB HEPATITIS A IGM (test code = NONREACTIVE HAVMAB) AG HEPATITIS B SURFACE (test code = NEGATIVE NONREACTIVE HBSAG) AB HEPATITIS B CORE IGM (test code = NONREACTIVE HBCMAB) AB HEPATITIS C (test code = HCVAB) NONREACTIVE HCG [id number] 18:27:00 Test Item Value Reference Range Interpretation Comments HCG SERUM (test < 2 IU/L ~~~~~~~~~~~~ ~~~~~~~~~~~~~~~~ code = HCG) ~~~~~~~~~~~~~~~ ~~~~~~~~~~~~~ ~~~~INTERPRETAT ION OF BHCG QN PERFORMED AT [facility] 0.2-1 W EEKS AFTER CONCEPTION 5-50 [...] Units per milliliter AND LESS THAN 25 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 per milliliterS HOULD HAVE ADDITIONAL BLOO D SAMPLE DRAWN 48 HOURSL ATER AND REPEATED.~~~~~~ ~~~~~~~~~~~~~ ~~~~~~~~~~~~~~~ ~~~~~~~~~~~~~ ~~~~~~~~~~~~~ UNABLE TO DRAW BLOOD, REASON: PROCEDURENOTIFIED PATIENT CARE STAFF: MICHELLE LOPEZ WILL CALL LAB 1445ON 01/24/19 AT 1446 BY Tulio SrivastavaSIVE METABOLIC [id number] 18:13:00 Test Item Value Reference Range Interpretation [...] WILL CALL LABON 01/24/19 AT 1447 BY Johnnie Srivastava (PHENYTOIN) 2019-01-24 18:11:00 Test Item Value Reference Range Interpretation Comments DILANTIN (PHENYTOIN) (test code = 12.6 ug/ML 10.0-20.0 N DIL) Comments to Dive Master: REPORTED FROM [facility].LACTIC [id number] 18:11:00 Test Item Value Reference Range Interpretation Comments LACTIC ACID (test code = LACT) 2.2 MMOL/L 0.7-2.1 H UNABLE TO DRAW BLOOD, REASON: PROCEDURENOTIFIED PATIENT CARE STAFF: MICHELLE LOPEZ WILL CALL LAB ON 01/24/19 AT 1447 BY Aram [id number] 18:09:00 Test Item Value Reference Range Interpretation Comments PHOSPHOROUS (test code = PHOS) 3.4 MG/DL 2.5-4.5 N UNABLE TO DRAW BLOOD, REASON: PROCEDURENOTIFIED PATIENT CARE STAFF: MICHELLE LOPEZ WILL CALL LABYON 01/24/19 AT 1446 BY Aram [id number] 18:09:00 Test Item Value Reference Range Interpretation [...] CALL LABON 01/24/19 AT 1448 BY AtifAngPTT [id number] 18:01:00 Test Item Value Reference Range Interpretation Comments PTT ACTIVATED (test code = APTT) 28.6 SECONDS 22.0-33.0 N UNABLE TO DRAW BLOOD, REASON: PROCEDURENOTIFIED PATIENT CARE STAFF: MICHELLE LOPEZ WILL CALL LABON 01/24/19 AT 1448 BY Gustavo Srivastava W/AUTO DIFF 2019-01-24 17:47:00 Test Item [...] PATIENT CARE STAFF: MICHELLE LOPEZ WILL CALL [facility] 01/24/19 AT 1448 BY Aram Srivastava- CT HEAD/BRAIN W/O CONT 2019-01-24 15:30:00 Patient Name: LAMINE DOSHI Unit No: [id number] EXAMS: CPT CODE: [id number] CT HEAD/BRAIN W/O CONT 01673 EXAM: - CT HEAD/BRAIN W/O CONT Location [...] Man, RT(R) CTDI: DLP: Trnscrpt: 01/24/2019 (1530) [id number].[id number] [facility] NAME: LAMINE DOSHI PHYS: [place] [address] : 1990 AGE: 29 SEX: F LOC: Z.621 B PHONE #: [phone] EXAM DATE: 01/24/2019 STATUS: ADM IN FAX #: [phone] RAD #: D/C DT PAGE 1 Signed Report Patient Name: LAMINE DOSHI Unit No: [id number] EXAMS: CPT CODE: [id number] CT HEAD/BRAIN W/O CONT 00314 <Continued> Orig Print D/T: S: 01/25/2019 (0923) [facility] NAME: LAMINE DOSHI PHYS: [place] [address] : 1990 AGE: 29 SEX: F LOC: Z.621 B PHONE #: [phone] EXAM DATE: 01/24/2019 STATUS: ADM IN FAX #: [phone] RAD #: D/C DT PAGE 2 Signed [id number] 22:58:00 Test Item Value Reference Range Interpretation [...] = THC) POSITIVE Negative A Comprehensive Metabolic [id number] 22:56:00 Test Item Value Reference Range Interpretation [...] ars ofage have not been validated by e MDRD study and sherly pham be interpretedwith caution.eGFR Re sult Interpretation: eGFR > or = 60 is in t he Normal RangeeGF R < 60 may mean kidney diseaseeGFR < 1 5 may mean kidney failureRange s recommended by the National Kidney Foundation,http ://nkd ep.nih.gov Alcohol/Ethanol, [id number] 22:56:00 Test Item Value Reference Range Interpretation Comments Alcohol, Ethyl 0.25 g/dL 0.00-0.01 H Intoxicated 0.080 g/dL (test code = ETOH) or more Urinalysis [id number] 22:54:00 Test Item Value Reference Range Interpretation Comments Color (test code = Daisha Yellow,Straw,Pl A COLOR) yellow Clarity (test code = Clear Clear N CLAR) Specific [place] (test 1.020 1.001-1.035 N code = SPGR) [...] code = Few /HPF BACT) BHCG, Urine, [id number] 22:50:00 Test Item Value Reference Range Interpretation Comments Preg Qual [Ur] (test code = HUHCG) Negative Negative N CBC with [id number] 22:38:00 Test Item Value Reference Range Interpretation [...] code = ALYMPH) 1.6 K/cumm 0.5-4.6 N [place] Abs (test code = AMONO) 0.2 K/cumm 0.0-1.2 N Eos Abs (test code = AEOS) 0.09 K/cumm 0.00-0.74 N Baso Abs (test code = ABASO) 0.0 K/cumm 0.00-0.21 N
[2021-01-24] MEDS ORDERED: ENOXAPARIN 80 MG/0.8 ML SQ ONE (13:00)
--- NOTE | 2021-01-24 13:14 | RAD REPORT ---
EXAM DESCRIPTION: US - Extremity Venous Uni Ltd - 01/24/2021 1:07 pm CLINICAL HISTORY: Swelling COMPARISON: None. TECHNIQUE: Real-time sonographic evaluation of the right lower extremity deep venous system was perf ormed. FINDINGS: Normal compressibility, flow augmentation, phasic flow and spontaneous flow is identified in the right lower extremity deep venous system. No intraluminal filling defects seen. IMPRESSION: No DVT in the right lower extremity.
[2021-01-24 13:23] LABS: Urine Blood 2+ (Negative); Urine Glucose Negative (Negative); Urine Protein Negative (Negative); Urine Specific Gravity 1.025 (1.005-1.030); Urine pH 7.5 (5.0-7.0)
[2021-01-24 13:54] LABS: Urine Specific Gravity/Preg 1.025 (1.005-1.030)
[2021-01-24] MEDS ORDERED: NA CHLORIDE 0.9% 1,000 ML ONE (15:00)
[2021-01-24 15:12] LABS: Absolute Lymphocytes (CBC) 0.8 K/uL (0.7-4.9); Basophils % 0.4 % (0-1.3); Hematocrit 27.1 % (36.0-45.0); Lymphocytes % 19.4 % (15.3-44.8); MPV 7.6 fL (7.6-11.3); RBC Red Blood Cell Count 3.25 M/uL (3.86-4.86)
[2021-01-24 15:24] LABS: ALT/SGPT 39 U/L (12-78); AST/SGOT 34 U/L (15-37); Alkaline Phosphatase 232 U/L (45-117); BUN Blood Urea Nitrogen 20 mg/dL (7-18); Bicarbonate 28 mmol/L (21-32); Bilirubin Direct 0.2 mg/dL (0-0.2); Bilirubin Total 0.4 mg/dL (0.2-1.0); Glucose Level 81 mg/dL (74-106); Lipase 58 U/L (73-393); Protein, Total 6.3 g/dL (6.4-8.2); Sodium Level 140 mmol/L (136-145)
[2021-01-24 15:28] LABS: Urine Bacteria >50 /HPF (<20); Urine RBC NONE SEEN /HPF (NONE SEEN)
[2021-01-24] MEDS ORDERED: ONDANSETRON 4 MG/2 ML VIAL ONE (16:29)
[2021-01-24] MEDS ORDERED: MORPHINE 2 MG/ML SYR ONE ×2 (16:29→17:21)
--- NOTE | 2021-01-24 16:58 | RAD REPORT ---
EXAM DESCRIPTION: CTAbdomen Pelvis W Contrast - 01/24/2021 4:42 pm CLINICAL HISTORY: Abdominal pain. ABD PAIN COMPARISON: Abdomen Pelvis W Contrast dated 10/06/2020; Abdomen Pelvis W Contrast dated 03/03/2018 Abdomen Pelvis W Contrast dated 10/06/2020; Abdomen Pelvis W Contrast dated 03/03/2018; Abdomen P katharine W Contrast dated 05/16/2017; Abdomen Pelvis W Contrast dated 03/16/2017 TECHNIQUE: Biphasic CT imaging of the abdomen and pelvis was performed with 100 ml non-ionic IV cont rast. All CT scans are performed using dose optimization technique as appropriate and may include automated exposure control or mA/KV adjustment according to patient size. FINDINGS: The lung bases are clear. Heart size is normal. Hepatic steatosis. Cholecystectomy. No adrenal masses. The pancreas is within normal limits. Surgical changes are present at the IVC status post gastric bypass. No bowel obstruction, free air, free fluid or abscess. The appendix is normal. No evidence of signi ficant lymphadenopathy. No suspicious bony findings. IMPRESSION: No acute intra-abdominal or pelvic finding.
[2021-01-24] MEDS ORDERED: CEFTRIAXONE/SWI 1gm 1 GM/10 ML SYR ONE (17:00)
--- NOTE | 2021-01-24 18:26 | EDPHYS ---
Physician Documentation [facility] Name: Shae Dockery Age: 31 yrs Sex: Female : 1990 Arrival Date: 01/24/2021 Time: 11:43 Bed 14 Private MD: ED Physician Simon Fabian HPI: 01/24 16:26 This 31 yrs old Female presents to ER via Wheelchair with complaints of Side tw4 Pain, Leg Swelling. 16:26 The patient presents with abdominal pain in the right upper quadrant. Onset: The tw4 symptoms/episode began/occurred 2 day(s) ago. The symptoms do not radiate. Associated signs and symptoms: Pertinent positives: right leg pain. The symptoms are described as dull. Severity of pain: At its worst the pain was moderate in the emergency department the pain is unchanged. The patient has not experienced similar symptoms in the past. 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 - Social history:: Smoking status: Patient denies any tobacco usage or history of. ROS: 16:26 Constitutional: Negative for fever, chills, and weight loss, Eyes: Negative for injury, tw4 pain, redness, and discharge, Cardiovascular: Negative for chest pain, palpitations, and edema, Respiratory: Negative for shortness of breath, cough, wheezing, and pleuritic chest pain, Abdomen/GI: Negative for abdominal pain, nausea, vomiting, diarrhea, and constipation, Back: Negative for injury and pain. 16:26 MS/extremity: Positive for swelling, tenderness. Exam: 16:26 Constitutional: This is a well developed, well nourished patient who is awake, alert, tw4 and in no acute distress. Head/Face: Normocephalic, atraumatic. Chest/axilla: Normal chest wall appearance and motion. Nontender with no deformity. No lesions are appreciated. Cardiovascular: Regular rate and rhythm with a normal S1 and S2. No gallops, murmurs, or rubs. Normal PMI, no JVD. No pulse deficits. Respiratory: Lungs have equal breath sounds bilaterally, clear to auscultation and percussion. No rales, rhonchi or wheezes noted. No increased work of breathing, no retractions or nasal flaring. Abdomen/GI: Soft, non-tender, with normal bowel sounds. No distension or tympany. No guarding or rebound. No evidence of tenderness throughout. Skin: Warm, dry with normal turgor. Normal color with no rashes, no lesions, and no evidence of cellulitis. 16:26 Musculoskeletal/extremity: Extremities: noted in the lateral aspect of right calf, right ankle, lateral aspect of right foot, right calf, right Achilles, right heel, medial aspect of right calf, medial aspect of right foot, right murphy, anterior aspect of right ankle and dorsum of right foot: swelling, tenderness. Vital Signs: 12:02 Resp 16; Weight 77.11 kg; Height 5 ft. 7 in. (170.18 cm); Pain 8/10; ss 12:05 BP 119 / 86; Pulse 112; Temp 98.5; Pulse Ox 99% on R/A; ss 13:12 BP 137 / 90; Pulse 78; Resp 18; Pulse Ox 100% ; ae4 13:55 BP 148 / 78; Pulse 90; Resp 19; Pulse Ox 99% on R/A; ae4 16:22 BP 140 / 102; Pulse 75; Resp 17; Pulse Ox 100% on R/A; ae4 18:42 BP 141 / 92; Pulse 85; Resp 17; Pulse Ox 100% on R/A; ae4 12:02 Body Mass Index 26.63 (77.11 kg, 170.18 cm) ss MDM: 13:17 Patient medically screened. tw4 16:26 Data reviewed: vital signs, nurses notes. Data interpreted: Pulse oximetry: tw4 Interpretation: normal. Counseling: I had a detailed discussion with the patient and/or guardian regarding: the historical points, exam findings, and any diagnostic results supporting the discharge/admit diagnosis, lab results. 01/24 13:23 Order name: Urine Dipstick-Ancillary; Complete Time: 14:47 EDMD 01/24 13:29 Order name: Urine --Ancillary (enter results); Complete Time: 16:04 01/24 14:09 Order name: Basic Metabolic Panel; Complete Time: 16:04 [facility] 01/24 14:09 Order name: CBC with Diff tw 01/24 14:09 Order name: Hepatic Function; Complete Time: 16:04 4 01/24 14:09 Order name: Lipase; Complete Time: 16:04 [facility] 01/24 12:21 Order name: US Extremity Venous Unilateral Ltd; Complete Time: 14:04 [facility] 01/24 14:04 Interpretation: No acute disease. [facility] 01/24 14:48 Order name: Urine Microscopic Only [facility] 01/24 14:48 Order name: Urine Microscopic Only; Complete Time: 16:04 EDMD 01/24 15:28 Order name: Urine Culture [facility] 01/24 16:05 Order name: CT Abd/Pelvis - IV Contrast Only; Complete Time: 17:33 tw4 01/24 18:57 Order name: CBC Smear Scan [facility] 01/24 14:09 Order name: IV Saline Lock; Complete Time: 15:05 [facility] 01/24 14:09 Order name: Labs collected and sent; Complete Time: 15:05 tw4 Administered Medications: 08:38 Drug: morphine 4 mg Route: IVP; Site: right antecubital; ae4 18:42 Follow up: Response: No adverse reaction; Pain is decreased ae4 14:45 Drug: NS 0.9% 1000 ml Route: IV; Rate: 1 bolus; Site: right antecubital; ae4 16:00 Drug: Zofran (Ondansetron) 4 mg Route: IVP; Site: right antecubital; ae4 17:08 Follow up: Response: No adverse reaction ae4 16:04 Drug: morphine 2 mg Route: IVP; Site: right antecubital; ae4 17:08 Follow up: Response: Pain is decreased ae4 16:45 Drug: Rocephin (cefTRIAXone) 1 grams Route: IV; Rate: calculated rate; Site: right ae4 antecubital; 17:05 Drug: morphine 2 mg Route: IVP; Site: right antecubital; ae4 18:25 Follow up: Response: Pain is unchanged, physician notified ae4 18:36 Not Given (Patient Refused; Patient states "Tramadol gives me seizures"): traMADol 50 ae4 mg PO once; RASS on ADMIN: Combtv4, Very Agttd3, Agttd2, Rstlss1, AlertClm0, Drwsy-1, Lt Sdtn-2, Mod Sdtn-3, Dp Sdtn-4, UnArsble-5 Disposition Summary: 01/24/21 18:26 Discharge Ordered Location: Home tw4 Problem: new tw4 Symptoms: have improved tw4 Condition: Stable tw4 Diagnosis - Abdominal tenderness tw4 - UTI/ Urinary tract infection, site not specified tw4 Followup: tw4 - With: Private Physician - When: Upon discharge from the Emergency Department - Reason: Recheck today's complaints, Continuance of care, Re-evaluation by your physician Discharge Instructions: - Discharge Summary Sheet tw4 - Dysuria tw4 - Urinary Tract Infection, Adult tw4 Forms: - Medication Reconciliation Form tw4 - Thank You Letter tw4 - Antibiotic Education tw4 - Prescription Opioid Use tw4 Prescriptions: - Macrobid 100 mg Oral Capsule - take 1 capsule by ORAL route every 12 hours for 10 days; 20 capsule; Refills: tw4 0, Product Selection Permitted - acetaminophen-codeine 300-15 mg Oral tablet - take 1 tablet by ORAL route every 4 hours; 15 tablet; Refills: 0, Product tw4 Selection Permitted Signatures: Dispatcher [employer] Kourtney Laura RN RN Simon Fabian MD MD tw4 Marcellus Vargas RN RN ae4 Corrections: (The following items were deleted from the chart) 12:05 12:04 PMHx: Liver disease; [facility] 12:05 12:04 PMHx: pt trying to get on liver transplant list; [facility]
--- NOTE | 2021-01-24 18:26 | ER ---
Nurse's Notes [facility] Name: Shae Dockery Age: 31 yrs Sex: Female : 1990 Arrival Date: 01/24/2021 Time: 11:43 Bed 14 Private MD: Diagnosis: Abdominal tenderness;UTI/ Urinary tract infection, site not specified Presentation: 01/24 12:02 Chief complaint: Patient states: R sided abd pain with swelling to R leg that began 3 ss days ago. HX of liver transplant. Pt was instructed to go to ER, but could not make it to [facility]. Coronavirus screen: Client denies travel out of the [place] in the last 14 days. Ebola Screen: Patient denies exposure to infectious person. Patient denies travel to an Ebola-affected area in the 21 days before illness onset. Initial Sepsis Screen: Does the patient meet any 2 criteria? No. Patient's initial sepsis screen is negative. Does the patient have a suspected source of infection? No. Patient's initial sepsis screen is negative. Risk Assessment: Do you want to hurt yourself or someone else? Patient reports no desire to harm self or others. Onset of symptoms was January 21, 2021. 12:02 Method Of Arrival: Wheelchair ss 12:02 Acuity: AYESHA 3 ss Triage Assessment: 19:04 General: Appears. 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 - Social history:: Smoking status: Patient denies any tobacco usage or history of. Screenin:19 Abuse screen: Denies threats or abuse. Denies injuries from another. Nutritional ae4 screening: No deficits noted. Tuberculosis screening: No symptoms or risk factors identified. Fall Risk Fall in past 12 months (25 points). Secondary diagnosis (15 points) impaired mobility, IV access (20 points). Ambulatory Aid- Crutches/Cane/Walker (15 pts). Gait- Impaired (20 pts.). Mental Status- Oriented to own ability (0 pts). Assessment: 12:00 General: Appears in no apparent distress. comfortable, Behavior is calm, cooperative. ae4 Pain: Complains of pain in right upper quadrant Pain currently is 8 out of 10 on a pain scale. Quality of pain is described as throbbing. Neuro: Level of Consciousness is awake, alert, obeys commands, Oriented to person, place, time, situation, Appropriate for age. Cardiovascular: Heart tones S1 S2 present Capillary refill < 3 seconds Patient's skin is warm and dry. Respiratory: Airway is patent Respiratory effort is even, unlabored, Respiratory pattern is regular, symmetrical. GI: No signs and/or symptoms were reported involving the gastrointestinal system. Patient currently denies nausea, vomiting. : Urine is cloudy. EENT: No signs and/or symptoms were reported regarding the EENT system. Derm: Skin is pale. Musculoskeletal: No signs and/or symptoms reported regarding the musculoskeletal system. 16:16 Reassessment: Patient is requesting pain medication. Patient states "It's out of ae4 control now." Provider notified, new orders received. 16:20 Reassessment: Patient transported via stretcher to CT. ae4 17:07 Reassessment: Patient state her pain has returned and is requesting more pain ae4 medication. Provider notified, new orders received. Vital Signs: 12:02 Resp 16; Weight 77.11 kg; Height 5 ft. 7 in. (170.18 cm); Pain 8/10; ss 12:05 BP 119 / 86; Pulse 112; Temp 98.5; Pulse Ox 99% on R/A; ss 13:12 BP 137 / 90; Pulse 78; Resp 18; Pulse Ox 100% ; ae4 13:55 BP 148 / 78; Pulse 90; Resp 19; Pulse Ox 99% on R/A; ae4 16:22 BP 140 / 102; Pulse 75; Resp 17; Pulse Ox 100% on R/A; ae4 18:42 BP 141 / 92; Pulse 85; Resp 17; Pulse Ox 100% on R/A; ae4 12:02 Body Mass Index 26.63 (77.11 kg, 170.18 cm) ED Course: 11:43 Patient arrived in ED. ds1 12:03 Triage completed. ss 12:04 Arm band placed on right wrist. ss 12:21 Simon Fabian MD is Attending Physician. tw4 13:07 US Extremity Venous Unilateral Ltd In Process Unspecified. EDMS 13:26 Marcellus Vargas, MICHELLE is Primary Nurse. ae4 13:32 Patient has correct armband on for positive identification. Placed in gown. Bed in low mh5 position. Call light in reach. Side rails up X 1. Warm blanket given. Pulse ox on. NIBP on. 13:32 Urine --Ancillary (enter results) Sent. mh5 13:32 Urine collected: clean catch specimen, cloudy. mh5 16:42 CT Abd/Pelvis - IV Contrast Only In Process Unspecified. EDMS Administered Medications: 08:38 Drug: morphine 4 mg Route: IVP; Site: right antecubital; ae4 18:42 Follow up: Response: No adverse reaction; Pain is decreased ae4 14:45 Drug: NS 0.9% 1000 ml Route: IV; Rate: 1 bolus; Site: right antecubital; ae4 16:00 Drug: Zofran (Ondansetron) 4 mg Route: IVP; Site: right antecubital; ae4 17:08 Follow up: Response: No adverse reaction ae4 16:04 Drug: morphine 2 mg Route: IVP; Site: right antecubital; ae4 17:08 Follow up: Response: Pain is decreased ae4 16:45 Drug: Rocephin (cefTRIAXone) 1 grams Route: IV; Rate: calculated rate; Site: right ae4 antecubital; 17:05 Drug: morphine 2 mg Route: IVP; Site: right antecubital; ae4 18:25 Follow up: Response: Pain is unchanged, physician notified ae4 18:36 Not Given (Patient Refused; Patient states "Tramadol gives me seizures"): traMADol 50 ae4 mg PO once; RASS on ADMIN: Combtv4, Very Agttd3, Agttd2, Rstlss1, AlertClm0, Drwsy-1, Lt Sdtn-2, Mod Sdtn-3, Dp Sdtn-4, UnArsble-5 Outcome: 18:26 Discharge ordered by MD. holcomb 19:08 Patient left the ED. mh5 Signatures: Dispatcher [employer] EDID Drea Larson ds1 Kourtney Ivory, MICHELLE RN Ashley Trent 5 Simon Fabian MD MD tw4 Marcellus Vargas RN RN ae4 Corrections: (The following items were deleted from the chart) 12:05 12:04 PMHx: Liver disease; ss ss 12:05 12:04 PMHx: pt trying to get on liver transplant list; [facility]
[2021-01-24 18:57] LABS: Blood Morphology Comment NOTED (NOT SEEN); Platelet Estimate ADEQ; White Blood Cell Scan OK (OK)
[2021-01-24 18:58] LABS: Anisocytosis 2+; Polychromasia 1+
[2021-01-24] MEDS ORDERED: MORPHINE 4 MG/ML SYR ONE (18:58)
[2021-01-24 19:13] VITALS: TEMP 98.5
[2021-01-24 19:17] VITALS: O2SAT 100
[2021-01-24 19:18] VITALS: BP 141/92
== END 2021-01-24 19:08 | disposition home or self-care (01) ==
LOC: ER 11:35
DX: N39.0 Urinary tract infection, site not specified (principal); Z94.4 Liver transplant status; Z88.5 Allergy status to narcotic agent; Z88.6 Allergy status to analgesic agent; Z91.040 Latex allergy status
CPT/HCPCS: 87088; 85025; 87086; 80048; 36415; 81025; 80076; 87077; 87186; 83690; 74177; 93971; 96375; 96374; 99284; Q9967; J2270 ×2; J0696; J7030; J2405; 81003; 81015